=== PATIENT | male | born 1965 | race Two or more races ===

== ENCOUNTER 2024-10-10 11:15 | Inpatient (IN) | payer BC, OTHER ==
[~2024-10-10] VITALS: Ht 180.3 cm; Wt 97.0 kg
[~2024-10-10 11:15] MED LIST: LISI10TA34 PO
--- NOTE | 2024-10-10 12:08 | ED.PDOC ---
History of Present Illness HPI Comments 59-year-old male with PMHx DM, HTN presents with a chief complaint of flu-like symptoms and dizziness x 2 months. Patient states that he is feeling feverish, has throat pain, and a nonproductive cough x 2 months. Patient reports that he doesn't like the doctors and that is why he has not seeked medical attention. Patient walks with a cane. No other symptoms or modifying factors present at this time. Time Seen by MD: 12:02 Reviewed Notes: Nurses Notes, Medications, Allergies Allergies: Coded Allergies: NO KNOWN ALLERGIES (Unverified , 10/10/24) Information Source: Patient Mode of Arrival: Ambulatory Severity: Moderate Timing: Months Duration: Since onset Prehospital treatment: None Past Medical History PAST MEDICAL HISTORY: DM, HTN Surgical History: Denies all surgeries Family History Family History: Reviewed,noncontributory to illness Social History Smoker: Quit Greater Than 1 Year Alcohol: Denies ETOH Use Drugs: Denies Drug Use Lives In: Home Constitutional: reports: fever; denies: chills, diaphoresis, fatigue, malaise, sweats, weakness, others EENTM: reports: throat pain; denies: blurred vision, double vision, ear bleeding, ear discharge, ear drainage, ear pain, ear ringing, eye pain, eye redness, hearing loss, mouth pain, mouth swelling, nasal discharge, nose bleeding, nose congestion, nose pain, photophobia, tearing, throat swelling, voi ce changes, others Respiratory: reports: cough; denies: hemoptysis, orthopnea, SOB at rest, shortness of breath, SOB with excertion, stridor, wheezing, others Cardiovascular: denies: chest pain, dizzy spells, diaphoresis, Dyspnea on exertion, edema, irregular heart beat, left arm pain, lightheadedness, palpitations, PND, syncope, others Gastrointestinal: denies: abdomen distended, abdominal pain, blood streaked bowels, constipated, diarrhea, dysphagia, difficulty swallowing, hematemesis, melena, nausea, poor appetite, poor fluid intake, rectal bleeding, rectal pain, vomiting, others Genitourinary: denies: burning, dysuria, flank pain, frequency, hematuria, incontinence, penile discharge, penile sore, pain, testicle pain, testicle swelling, urgency, others Neurological: reports: dizziness; denies: fainting, headache, left sided numbness, left sided weakness, numbness, paresthesia, pre-existing deficit, right sided numbness, right sided weakness, seizure, speech problems, tingling, tremors, weakness, others Musculoskeletal: denies: back pain, gout, joint pain, joint swelling, muscle pain, muscle stiffness, neck pain, others Integumetry: denies: bruises, change in color, change in hair/nails, dryness, laceration, lesions, lumps, rash, wounds, others Allergic/Immunocompromised: denies: Difficulty Healing, Frequent Infections, Hives, Itching, others Hematologic/Lymphatic: denies: anemia, blood clots, easy bleeding, easy bruising, swollen glands, others Endocrine: denies: excessive hunger, excessive sweating, excessive thirst, excessive urination, flushing, intolerance to cold, intolerance to heat, unexplained weight gain, unexplained weight loss, others Psychiatric: denies: anxiety, bipolar disorder, depression, hopeless, panic disorder, schizophrenia, sleepless, suicidal, others All Other Systems: Reviewed and Negative Physical Exam General Appearance: Moderate Distress HEENT: Normal ENT Inspection, Pharynx Normal, TMs Normal Neck: Full Range of Motion, Non-Tender, Normal, Normal Inspection Respiratory: Chest Non-Tender, Lungs Clear, No Accessory Muscle Use, No Respiratory Distress, Normal Breath Sounds Cardiovascular: No Edema, No JVD, No Murmur, No Gallop, Normal Peripheral Pulses, Regular Rate/Rhythm Breast Exam: Deferred Gastrointestinal: No Organomegaly, Non Tender, No Pulsatile Mass, Normal Bowel Sounds, Soft Genitalia: Deferred Pelvic: Deferred Rectal: Deferred Extremities: No calf tenderness, Normal capillary refill, Normal inspection, Normal range of motion, Non-tender, No pedal edema Musculoskeletal : Apperance: Normal Neurologic: Alert, lens marker II-XII nml as Tested, Motor Weakness, Normal Affect, Normal Mood, No Sensory Deficits Cerebellar Function: Normal Reflexes: Normal Skin: Dry, Normal Color, Warm Lymphatic: No Adenopathy Was a procedure done? Was a procedure done?: No Differential Dx Considerations may include: ACS, FL, acute on chronic diastolic heart failure PE X-Ray, Labs, Meds, VS Vital Signs Date Time Temp Pulse Resp B/P (MAP) Pulse Ox O2 Delivery O2 Flow Rate FiO2 10/10/24 14:48 97.1 10/10/24 14:45 111 10/10/24 14:42 97.1 115 19 124/70 (88) 94 97.1 10/10/24 12:27 100.5 110 16 139/96 (110) 96 100.5 10/10/24 12:27 110 16 96 Room Air 10/10/24 12:17 101.5 113 18 155/85 (108) 97 10/10/24 12:16 18 97 Room Air* 0 21 Lab Test 10/10/24 16:01 10/10/24 14:55 10/10/24 13:06 10/10/24 12:10 Range/Units Troponin I High Sensitivity 8674 *H 8470 *H 9566 *H </=54 ng/L Sodium Level 129 L 136-145 mmol/L Potassium Level 4.8 3.5-5.1 mmol/L Chloride Level 99 98-107 mmol/L Carbon Dioxide Level 22 20-31 mmol/L Anion Gap 8 5-15 Blood Urea Nitrogen 37 H 9-23 mg/dL Creatinine 2.23 H 0.700-1.30 mg/dL Glomerular Filtration Rate Calc 33 >90 mL/min BUN/Creatinine Ratio 16.6 10.0-20.0 Serum Glucose 108 H 74-106 mg/dL Calcium Level 8.9 8.7-10.4 mg/dL White Blood Count 11.4 H 4.4-10.8 10^3/uL Red Blood Count 4.02 L 4.5-5.90 10^6/uL Hemoglobin 11.8 L 13.5-17.5 g/dL Hematocrit 35.5 L 41.0-53.0 % Mean Corpuscular Volume 88.4 80.0-100.0 fL Mean Corpuscular Hemoglobin 29.3 28.0-32.0 pg Mean Corpuscular Hemoglobin Concent 33.1 32.0-36.0 g/dL Red Cell Distribution Width 13.9 11.8-14.3 % Platelet Count 400 140-450 10^3/uL Mean Platelet Volume 8.9 6.9-10.8 fL Neutrophils (%) (Auto) 83.7 H 37.0-80.0 % Lymphocytes (%) (Auto) 6.9 L 10.0-50.0 % Monocytes (%) (Auto) 9.3 0.0-12.0 % Eosinophils (%) (Auto) 0.0 0.0-7.0 % Basophils (%) (Auto) 0.1 0.0-2.0 % Neutrophils # (Auto) 9.5 H 1.6-8.6 10 ^3/uL Lymphocytes # (Auto) 0.8 0.4-5.4 10 ^3/uL Monocytes # (Auto) 1.1 0-1.3 10 ^3/uL Eosinophils # (Auto) 0 0-0.8 10 ^3/uL Basophils # (Auto) 0 0-0.2 10 ^3/uL Nucleated Red Blood Cells 0.0 % D-Dimer, Quantitative 2.81 H 0.0-0.49 mg/L FEU Lactic Acid Level 1.7 0.4-2.0 mmol/L B-Type Natriuretic Peptide 1022.23 0-100 pg/mL Urine Color Yellow Yellow Urine Clarity Turbid H Clear Urine pH 6.0 5.0-9.0 Urine Specific [place] 1.023 1.001-1.035 Urine Protein 3+ H Negative Urine Ketones 1+ H Negative Urine Blood 2+ H Negative /uL Urine Nitrite Negative Negative Urine Bilirubin Negative Negative Urine Urobilinogen Normal Negative mg/dL Urine Leukocyte Esterase Negative Negative /uL Urine RBC 6 0 - 3 /hpf Urine Microscopic WBC 3 0-3 /HPF Urine Squamous Epithelial Cells Few <5 /hpf Urine Bacteria Few H None Seen /hpf Urine Mucus Few None Seen Urine Glucose 1+ H Normal mg/dL Current Medications Medications (Trade) Dose Ordered Sig/Shavon Route Start Time Stop Time Status Last Admin Acetaminophen (Tylenol Tablet) 650 mg ONCE ONCE PO 10/10/24 12:15 10/10/24 12:16 DC 10/10/24 12:22 Enoxaparin Sodium (Lovenox) 90 mg ONCE ONCE SC 10/10/24 15:15 10/10/24 15:16 DC 10/10/24 15:29 CT scan of the chest to rule out PE shows: IMPRESSION: No pulmonary embolism in the visualized pulmonary arteries including the segmental and subsegmental pulmonary arteries. Lymphadenopathy at the celiac axis and mouna hepatis incompletely visualized. Prominent bilateral mediastinal lymph nodes. 1.0 cm left lower lobe pulmonary nodule. Bibasilar atelectasis and ground glass opacity. Cardiomegaly with small pericardial effusion. The chest x-ray shows: IMPRESSION: Bibasilar pneumonia. The patient was started on Lovenox 90 mg subQ The patient was also given acetaminophen 650 mg The urine test is positive for ketones but negative for infection The BNP is 1022.23 The CBC shows an elevated white blood cell count of 11.4 The rest of the CBC is within normal limits The D-dimer is 2.81 The chemistry panel is within normal limits Because the troponin level was 9566 and then went down to around 8600 we are going to get a Cardiology consult The patient was being admitted at this time Images Reviewed?: Images reviewed and evaluated by me Time of 1ST Reevaluation: 12:32 Reevaluation 1ST: Unchanged Patient Education/Counseling: Diagnosis, Treatment, Prognosis Family Education/Counseling: Diagnosis, Treatment, Prognosis Departure 1 Departure Time of Disposition: 17:03 Impression: Primary Impression: Non-STEMI (non-ST elevated myocardial infarction) Additional Impressions: Elevated troponin Elevated d-dimer Acute on chronic diastolic heart failure Disposition: ADMITTED INPATIENT Admit to: [facility] Condition: Fair Critical Care Note Critical Care Time?: Yes (55 min-critical care time only) Stability Stability form required: Yes Unstable for transfer: ICU, CCU, PCU, [facility] (Intensive VS monitoring), ED Physician Assesment (Clinical assesment) Heart Score Heart Score: Heart Score Response (Comments) Value History Moderate Suspicious 1 EKG Normal 0 Age 45-64 1 Risk Factors >3 or Hx ASHD 2 Troponin >3 x's Normal limit 2 Total 6 I personally scribed for MITA EVANS MD ([email or web address]) on 10/10/24 at 12:08. Electronically submitted by Dawson Rodriguez ([email or web address]). I personally scribed for MITA EVANS MD ([email or web address]) on 10/10/24 at 12:10. Electronically submitted by Dawson Rodriguez ([email or web address]). MITA EVANS MD Oct 10, 2024 12:08
[2024-10-10] MEDS: ACETAMINOPHEN 325 MG TAB PO ONE (12:22)
--- NOTE | 2024-10-10 12:55 | DVH ---
XY CHEST TWO VIEWS ROUTINE CLINICAL HISTORY: sob COMPARISON: None TECHNIQUE: Frontal and lateral view of the chest was obtained FINDINGS: Lines and Tubes: None Lungs: Bibasilar airspace opacities. Pleura: No effusion. No pneumothorax. Cardiomediastinal contours: Unremarkable Bones: No acute osseous abnormality. IMPRESSION: Bibasilar pneumonia.
[2024-10-10 13:24] LABS: Urine Bacteria FEW /hpf (None Seen); Urine Blood 2+ /uL (Negative); Urine Clarity Turbid (Clear); Urine Color Yellow (Yellow); Urine Mucus FEW (None Seen); Urine Protein, UAD 3+ (Negative); Urine Specific Gravity 1.023 (1.001-1.035); Urine Squamous Epithelial Cell FEW /hpf (<5); Urine Urobilinogen Normal (Negative); Urine WBC 3 /HPF (0-3)
[2024-10-10 13:31] LABS: Basophils # (auto) 0 10 ^3/uL (0-0.2); Basophils % (auto) 0.1 % (0.0-2.0); Eosinophils # (auto) 0 10 ^3/uL (0-0.8); Hematocrit 35.5 % (41.0-53.0); Hemoglobin 11.8 g/dL (13.5-17.5); Lymphocytes # (auto) 0.8 10 ^3/uL (0.4-5.4); Lymphocytes % (auto) 6.9 % (10.0-50.0); Mean Corpuscular Hemoglobin 29.3 pg (28.0-32.0); Mean Corpuscular Hgb Conc. 33.1 g/dL (32.0-36.0); Mean Corpuscular Volume 88.4 fL (80.0-100.0); Monocytes # (auto) 1.1 10 ^3/uL (0-1.3); Monocytes % (auto) 9.3 % (0.0-12.0); Neutrophils # (auto) 9.5 10 ^3/uL (1.6-8.6); Neutrophils % (auto) 83.7 % (37.0-80.0); Platelet Count (auto) 400 10^3/uL (140-450); Red Blood Cells 4.02 10^6/uL (4.5-5.90); Red Cell Distribution Width 13.9 % (11.8-14.3); White Blood Cell 11.4 10^3/uL (4.4-10.8)
[2024-10-10 15:00] VITALS: PULSE 63; RESP 18; O2SAT 95
[2024-10-10] MEDS: ENOXAPARIN SOD 100 MG/1 ML SYRINGE SC ONE (15:29)
[2024-10-10 15:34] LABS: Chloride 99 mmol/L (98-107); Potassium 4.8 mmol/L (3.5-5.1)
[2024-10-10 15:35] LABS: Anion Gap 8 (5-15); Calcium 8.9 mg/dL (8.7-10.4); Carbon Dioxide 22 mmol/L (20-31)
[2024-10-10] MEDS: IOHEXOL 350 MG/ML 100ML IJ ONE (15:36)
[2024-10-10 15:45] LABS: BUN/Creatinine Ratio 16.6 (10.0-20.0); Blood Urea Nitrogen 37 mg/dL (9-23); Glucose 108 mg/dL (74-106); Sodium 129 mmol/L (136-145)
--- NOTE | 2024-10-10 16:45 | DVH ---
CT CT ANGIO CHEST CONTRAST INDICATION: sob EXAM DATE: 10/10/2024 04:16 PM COMPARISON: None RADIATION DOSE: CTDIvol: 20 mGy, DLP: 635 mGy*cm PROCEDURE: Helical CT angiographic images were obtained of the chest with intravenous contrast. Sagi ttal and coronal reconstructions as well as MIPS are provided. Maximum intensity projections performe d (MIPs) were performed for CTA. ADDITIONAL IMAGES / REFORMATS: None All CT scans at this medical facility are performed using dose modulation techniques as appropriate t o a performed exam including the following: Automated exposure control was utilized; adjustment of th e MA and/or KV according to patient size; and use of iterative reconstruction technique. FINDINGS: Bones: Scattered degenerative changes are noted in the visualized osseous structures. Visualized Abdomen: Lymphadenopathy at the celiac axis and monua hepatis incompletely visualized. Chest Wall: Normal. Soft tissues: Normal. Mediastinum: Normal. Heart: Cardiomegaly with small pericardial effusion. Vessels: No filling defects in the visualized pulmonary arteries including the segmental and subsegme ntal pulmonary arteries. Lymph Nodes: Prominent bilateral mediastinal lymph nodes. Pleura: Small bilateral pleural effusions. Airways: Normal. Lun.0 cm left lower lobe pulmonary nodule. Bibasilar atelectasis and ground glass opacity. Other: None IMPRESSION: No pulmonary embolism in the visualized pulmonary arteries including the segmental and subsegmental p ulmonary arteries. Lymphadenopathy at the celiac axis and mouna hepatis incompletely visualized. Prominent bilateral med iastinal lymph nodes. 1.0 cm left lower lobe pulmonary nodule. Bibasilar atelectasis and ground glass opacity. Cardiomegaly with small pericardial effusion.
[2024-10-10] MEDS ORDERED: MORPHINE SULFATE INJ 2 MG/ml SYRG IV PRN (19:00)
[2024-10-10] MEDS ORDERED: ALBUTEROL SULF 2.5 MG/0.5ML(0.5%) NEB SOLN NEB PRN (19:00)
[2024-10-10] MEDS ORDERED: ONDANSETRON HCL 4 MG/2 ML VIAL IV PRN (19:00)
[2024-10-10] MEDS ORDERED: NITROGLYCERIN 0.4 MG SL TAB SL PRN (19:00)
[2024-10-10 19:30] VITALS: PULSE 90; RESP 13; O2SAT 100; O2SAT 95
[2024-10-10] MEDS: cefTRIAXone 1GM/50ML D5W 50 ML IV SCH (19:47)
[2024-10-10] MEDS: FUROSEMIDE 20 MG/2 ML VIAL IV ONE (19:47)
[2024-10-10 20:24] VITALS: BP 151/89; PULSE 84; RESP 12; TEMP 97.1; O2SAT 95
[2024-10-10] MEDS: AZITHROMYCIN 500MG/ 250ML 250 ML IV ONE (20:53)
--- NOTE | 2024-10-10 21:03 | DVHHP2 ---
History of Present Illness Reason for Visit: Shortness of breath History of Present Illness 59-year-old male presents for evaluation of like symptoms. Patient reports a two month history of shortness of breath with dizziness and a nonproductive cough. He also reports feeling chills intermittently. Denies chest pain or palpitations. No other acute complaints reported. Past Medical History Hypertension and diabetes mellitus Past Surgical History Denies Family History Noncontributory Smoke: No ALCOHOL: none Drugs: None Lives: with Family Review of Systems Review of Systems Review of systems are currently negative otherwise addressed in HPI. Allergies: Coded Allergies: NO KNOWN ALLERGIES (Unverified , 10/10/24) Medications Current Medications Medications Dose Ordered Sig/Shavon Route Start Time Stop Time Status Last Admin Dose Admin Furosemide 20 mg BIDD IV 10/11/24 06:00 Amlodipine Besylate 5 mg DAILY PO 10/11/24 10:00 Hydralazine HCl 10 mg Q6HP PRN IV 10/10/24 19:00 Aspirin 162 mg DAILY PO 10/11/24 10:00 Atorvastatin Calcium 10 mg HS PO 10/10/24 22:00 Carvedilol 3.125 mg Q12HR PO 10/10/24 22:00 Ondansetron HCl 4 mg Q4HP PRN IV 10/10/24 19:00 Acetaminophen 650 mg Q6HP PRN PO 10/10/24 19:00 Nitroglycerin 0.4 mg Q5MINP PRN SL 10/10/24 19:00 Morphine Sulfate 2 mg Q30M PRN IV 10/10/24 19:00 Ceftriaxone Sodium 50 ml @ 100 mls/hr DAILY@09 IV 10/10/24 19:04 10/10/24 19:47 100 MLS/HR Azithromycin 250 ml @ 125 mls/hr DAILY IV 10/11/24 10:00 Albuterol 2.5 mg Q6HPRN PRN NEB 10/10/24 19:00 Exam Vital Signs Vital Signs Date Time Temp Pulse Resp B/P (MAP) Pulse Ox O2 Delivery O2 Flow Rate FiO2 10/10/24 20:24 97.1 84 12 151/89 95 97.1 10/10/24 19:30 Room Air* 0 21 Exam Gen: 59-year-old male in mild distress Skin: Warm, dry, normal color and texture, no rash. HEENT: Normocephalic atraumatic, mucous membranes moist and pink. Neck: Cervical and supraclavicular nodes normal without enlargement, trachea is midline, thyroid gland is normal without masses. Pulmonary: Clear to auscultation and percussion bilaterally. Cardiac: Regular rate and rhythm. No murmur Abdomen: Soft, nontender, nondistended, bowel sounds present all 4 quadrants, no guarding, no rigidity, no organomegaly. Extremities: No cyanosis, clubbing, no edema Neuro: Cranial nerves II through XII grossly intact, normal affect and speech, no focal motor deficits. Labs/Xrays ORDERING PHYSICIAN: MITA EVANS MD PROCEDURE(s): CXR2 - CHEST TWO VIEWS ROUTINE REASON: sob ORDER NUMBER(s): [id number], ACCESSION NUMBER(s): [id number] XY CHEST TWO VIEWS ROUTINE CLINICAL HISTORY: sob COMPARISON: None TECHNIQUE: Frontal and lateral view of the chest was obtained FINDINGS: Lines and Tubes: None Lungs: Bibasilar airspace opacities. Pleura: No effusion. No pneumothorax. Cardiomediastinal contours: Unremarkable Bones: No acute osseous abnormality. IMPRESSION: Bibasilar pneumonia. RING PHYSICIAN: MITA EVANS MD PROCEDURE(s): CTACH - CT ANGIO CHEST CONTRAST REASON: sob ORDER NUMBER(s): [id number], ACCESSION NUMBER(s): [id number] CT CT ANGIO CHEST CONTRAST INDICATION: sob EXAM DATE: 10/10/2024 04:16 PM COMPARISON: None RADIATION DOSE: CTDIvol: 20 mGy, DLP: 635 mGy*cm PROCEDURE: Helical CT angiographic images were obtained of the chest with intravenous contrast. Sagittal and coronal reconstructions as well as MIPS are provided. Maximum intensity projections performed (MIPs) were performed for CTA. ADDITIONAL IMAGES / REFORMATS: None All CT scans at this medical facility are performed using dose modulation techniques as appropriate to a performed exam including the following: Automated exposure control was utilized; adjustment of the MA and/or KV according to patient size; and use of iterative reconstruction technique. FINDINGS: Bones: Scattered degenerative changes are noted in the visualized osseous structures. Visualized Abdomen: Lymphadenopathy at the celiac axis and mouna hepatis incompletely visualized. Chest Wall: Normal. Soft tissues: Normal. Mediastinum: Normal. Heart: Cardiomegaly with small pericardial effusion. Vessels: No filling defects in the visualized pulmonary arteries including the segmental and subsegmental pulmonary arteries. Lymph Nodes: Prominent bilateral mediastinal lymph nodes. Pleura: Small bilateral pleural effusions. Airways: Normal. Lun.0 cm left lower lobe pulmonary nodule. Bibasilar atelectasis and ground glass opacity. Other: None IMPRESSION: No pulmonary embolism in the visualized pulmonary arteries including the segmental and subsegmental pulmonary arteries. Lymphadenopathy at the celiac axis and mouna hepatis incompletely visualized. Prominent bilateral mediastinal lymph nodes. 1.0 cm left lower lobe pulmonary nodule. Bibasilar atelectasis and ground glass opacity. Cardiomegaly with small pericardial effusion. Labs Test 10/10/24 19:09 10/10/24 14:55 10/10/24 13:06 10/10/24 12:10 Range/Units Troponin I High Sensitivity 87005 *H </=54 ng/L Sodium Level 129 L 136-145 mmol/L Potassium Level 4.8 3.5-5.1 mmol/L Chloride Level 99 98-107 mmol/L Carbon Dioxide Level 22 20-31 mmol/L Anion Gap 8 5-15 Blood Urea Nitrogen 37 H 9-23 mg/dL Creatinine 2.23 H 0.700-1.30 mg/dL Glomerular Filtration Rate Calc 33 >90 mL/min BUN/Creatinine Ratio 16.6 10.0-20.0 Serum Glucose 108 H 74-106 mg/dL Calcium Level 8.9 8.7-10.4 mg/dL White Blood Count 11.4 H 4.4-10.8 10^3/uL Red Blood Count 4.02 L 4.5-5.90 10^6/uL Hemoglobin 11.8 L 13.5-17.5 g/dL Hematocrit 35.5 L 41.0-53.0 % Mean Corpuscular Volume 88.4 80.0-100.0 fL Mean Corpuscular Hemoglobin 29.3 28.0-32.0 pg Mean Corpuscular Hemoglobin Concent 33.1 32.0-36.0 g/dL Red Cell Distribution Width 13.9 11.8-14.3 % Platelet Count 400 140-450 10^3/uL Mean Platelet Volume 8.9 6.9-10.8 fL Neutrophils (%) (Auto) 83.7 H 37.0-80.0 % Lymphocytes (%) (Auto) 6.9 L 10.0-50.0 % Monocytes (%) (Auto) 9.3 0.0-12.0 % Eosinophils (%) (Auto) 0.0 0.0-7.0 % Basophils (%) (Auto) 0.1 0.0-2.0 % Neutrophils # (Auto) 9.5 H 1.6-8.6 10 ^3/uL Lymphocytes # (Auto) 0.8 0.4-5.4 10 ^3/uL Monocytes # (Auto) 1.1 0-1.3 10 ^3/uL Eosinophils # (Auto) 0 0-0.8 10 ^3/uL Basophils # (Auto) 0 0-0.2 10 ^3/uL Nucleated Red Blood Cells 0.0 % D-Dimer, Quantitative 2.81 H 0.0-0.49 mg/L FEU Lactic Acid Level 1.7 0.4-2.0 mmol/L B-Type Natriuretic Peptide 1022.23 0-100 pg/mL Urine Color Yellow Yellow Urine Clarity Turbid H Clear Urine pH 6.0 5.0-9.0 Urine Specific [place] 1.023 1.001-1.035 Urine Protein 3+ H Negative Urine Ketones 1+ H Negative Urine Blood 2+ H Negative /uL Urine Nitrite Negative Negative Urine Bilirubin Negative Negative Urine Urobilinogen Normal Negative mg/dL Urine Leukocyte Esterase Negative Negative /uL Urine RBC 6 0 - 3 /hpf Urine Microscopic WBC 3 0-3 /HPF Urine Squamous Epithelial Cells Few <5 /hpf Urine Bacteria Few H None Seen /hpf Urine Mucus Few None Seen Urine Glucose 1+ H Normal mg/dL Assessment/Plan Assessment/Plan Assessment NSTEMI Possible acute diastolic heart failure Questionable pneumonia Diabetes mellitus Hypertension Acute kidney injury Plan Admit the patient to telemetry to [facility] Cardiology consultation NPO Heparin drip Continue treatment per orders. Total critical care time excluding procedures performed this 50 minutes. Plan discussed with: Patient My Orders Orders - SILKE MARTIN AGACNP Procedure Category Date Status Time Furosemide Injection PHA 10/11/24 In Process (Lasix Injection) 06:00 Amlodipine Tablet PHA 10/11/24 In Process (Norvasc Tablet) 10:00 Hydralazine Injection PHA 10/10/24 In Process (Apresoline Inject 19:00 * Cardiology Consult CONS 10/10/24 Transmitted 18:46 Aspirin Tablet PHA 10/11/24 In Process 10:00 Atorvastatin (Lipitor) PHA 10/10/24 In Process 22:00 Carvedilol Tablet PHA 10/10/24 In Process (Coreg Tablet) 22:00 Basic Metabolic Panel LAB 10/11/24 Verified 04:00 Admit ADMIT 10/10/24 Transmitted 18:46 Ondansetron Hcl PHA 10/10/24 In Process (Zofran) 19:00 Echo 2d Mode Cardiac US 10/10/24 Logged DOP 18:46 Condition: Fair [facility] 10/10/24 In Process 18:46 Acetaminophen Tablet PHA 10/10/24 In Process (Tylenol Tablet) 19:00 Bedrest With Bathroom [facility] 10/10/24 In Process Privileg 18:46 Nitroglycerin PHA 10/10/24 In Process Sublingual (Ntrostat 19:00 Morphine Sulfate PHA 10/10/24 In Process Injection 19:00 Stat Ekg For Chest [facility] 10/10/24 In Process Pain 18:46 Notify Md Of Changes [facility] 10/10/24 In Process From Base 18:46 Mammography Tech For [facility] 10/10/24 In Process 24 Hours 18:46 Emergency Dysrhythmia [facility] 10/10/24 In Process Protocol 18:46 Rhythm Strips Once [facility] 10/10/24 In Process Every Shift 18:46 Oxygen By Nasal RT 10/10/24 Transmitted Cannula 18:46 Azithromycin 500mg/ PHA 10/11/24 In Process 250ml (Zithromax 50 10:00 Azithromycin 500mg/ PHA 10/10/24 In Process 250ml (Zithromax 50 19:00 Albuterol Medneb PHA 10/10/24 In Process (Ventolin Medneb) 19:00 Ceftriaxone 1gm/50ml PHA 10/10/24 In Process D5w (Rocephin) 19:04 Platelet Monitoring [facility] 10/10/24 Transmitted 20:56 Heparin Per [facility] 10/10/24 Transmitted Standardized Proce 20:56 Discontinue All Im [facility] 10/10/24 Transmitted Injections 20:56 Heparin Drip/D5w PHA 10/10/24 Transmitted 100units/Ml 21:00 Npo (Nothing By DIET 10/11/24 Transmitted Mouth) Diet Breakfast Date of Service: Oct 10, 2024 Billing Provider: SILKE MARTIN Common Visit Codes: 24021-SEZSAPVT CARE 30-74 MIN SILKE MARTIN Oct 10, 2024 21:03
[2024-10-10] MEDS: hydrALAZINE HCL 20 MG/ML VL IV PRN (21:19)
[2024-10-10 22:00] LABS: INR 1.2 (0.9-1.15); Partial Thromboplastin Time 37.6 SEC (24.5-34.5); Prothrombin Time 12.5 sec (9.3-11.8)
[2024-10-10] MEDS: CARVEDILOL 3.125 MG TAB PO SCH (22:11)
[2024-10-10] MEDS: ATORVASTATIN 20 MG TAB PO SCH (22:12)
[2024-10-11] MEDS: HEPARIN DRIP/D5W 100UNITS/ML 250 ML IV SCH ×4 (01:02→22:15)
[2024-10-11] MEDS: FUROSEMIDE 20 MG/2 ML VIAL IV SCH (06:09)
[2024-10-11 07:01] VITALS: O2SAT 95
[2024-10-11 07:08] LABS: Hematocrit 29.9 % (41.0-53.0); Hemoglobin 10.1 g/dL (13.5-17.5); Mean Corpuscular Hemoglobin 29.9 pg (28.0-32.0); Mean Corpuscular Hgb Conc. 33.9 g/dL (32.0-36.0); Mean Corpuscular Volume 88.2 fL (80.0-100.0); Platelet Count (auto) 330 10^3/uL (140-450); Red Blood Cells 3.39 10^6/uL (4.5-5.90); Red Cell Distribution Width 13.7 % (11.8-14.3); White Blood Cell 7.2 10^3/uL (4.4-10.8)
[2024-10-11 07:17] LABS: Basophils % (manual) 0 (0.0-2.0); Blast Cells 0; Chloride 99 mmol/L (98-107); Eosinophils % (manual) 0 (0-7); Metamyelocytes % 0; Myelocytes % 0; Promyelocytes % 0; Reactive Lymphocytes 0
[2024-10-11 07:19] LABS: Anion Gap 8 (5-15); Carbon Dioxide 25 mmol/L (20-31)
[2024-10-11 07:22] LABS: INR 1.18 (0.9-1.15); Partial Thromboplastin Time 41.1 SEC (24.5-34.5); Prothrombin Time 12.3 sec (9.3-11.8)
[2024-10-11 07:24] LABS: BUN/Creatinine Ratio 18.4 (10.0-20.0); Blood Urea Nitrogen 44 mg/dL (9-23); Calcium 8.4 mg/dL (8.7-10.4); Glucose 100 mg/dL (74-106); Sodium 132 mmol/L (136-145)
[2024-10-11 08:00] VITALS: PULSE 93; RESP 18; O2SAT 100
[2024-10-11 08:36] LABS: Band Neutrophils % (manual) 6; Lymphocytes % (manual) 7 (10.0-50.0); Monocytes % (manual) 11 (0-12); Platelet Estimate Adequate
--- NOTE | 2024-10-11 09:33 | DVHSR ---
APPROVED REPORT EXAM: Two-dimensional and M-mode echocardiogram with Doppler and color Doppler. Blood Pressure: 133/76 mmHg INDICATION EF RISK FACTORS Height: 5'11", Weight: 192 DIMENSIONS LVDd4.7 (3.8-5.7cm)LA (2D)4.6 (1.9-4.0cm)Aortic Root3.7 (2.0-3.7cm) LVDs3.8 (2.5-4.0cm)LA (MM) (1.9-4.0cm)Aortic Cusp Exc2.0 (1.5-2.0cm) EF (%) 50.0 (55-70%)Rt. Atrium4.3 (1.9-4.0cm)Asc. Aorta3.8 cm IVSd1.1 (0.7-1.1cm)RV (D)3.9 (1.8-2.4cm) PWd1.0 (0.7-1.1cm) Mitral Valve MitralMitral Stenosis E wave1.08m/sMV Mean GR.mmHg A wave0.77m/sMV Peak GR.mmHg E/A ratio1.42D MVAcm2 DECEL [id number] 1/2 Timems Aortic Valve Aortic ValveAortic Stenosis V10.92m/[place] Mean GR.4mmHg V21.23m/[place] Peak GR.6mmHg LVOT Diameter2.4 (1.8-2.4cm)Doppler AVA3.38cm2 Pulmonic Valve V20.76m/s LEFT VENTRICLE The left ventricle is of normal size. Wall thickness is normal. Ejection fraction is low normal and is estimated at 50-55%. There is severe hypokinesis of the inferoposterior wall. There is grade 2 diastolic dysfunction with evidence of elevated left-sided filling pressure. RIGHT VENTRICLE The right ventricle is of normal size. Systolic function is normal. ATRIA The left atrium is mildly dilated in size. Right atrium is of normal size. Intra-atrial septum appe ars to be normal. MITRAL VALVE Normal structure and function. No significant regurgitation. PULMONIC VALVE Likely normal. TRICUSPID VALVE Normal structure and function. No significant regurgitation. PA systolic pressure isn't adequately estimated. AORTIC VALVE Normal in structure and function. GREAT VESSELS The aortic root and proximal ascending aorta are of normal size. PERICARDIAL EFFUSION There is small pericardial effusion that is circumferential. IVC is of normal size and collapses nor ana with inspiration. Conclusion Normal left ventricular size and low-normal systolic function. Ejection fraction is estimated at 50-55%. Severe hypokinesis of the inferoposterior wall. Grade II diastolic dysfunction with evidence of elevated left-sided filling pressure. Normal right ventricular size and systolic function. Mildly dilated left atrial chamber size. No significant valvular disease. PA systolic pressure isn't adequately estimated. Small circumferential pericardial effusion.
--- NOTE | 2024-10-11 10:15 | DVHINCON2 ---
Date Seen: Oct 11, 2024 Referring Physician KB Narayan Reason for Consultation NSTEMI History of Present Illness This is a 59-year-old male patient who presents to the emergency room with chief complaint of cough, fever, and fatigue for approximately one month. He decided to come to the emergency room for further evaluation. Initial twelve lead electrocardiogram reveals normal sinus rhythm with nonspecific ST segment changes to lateral leads. Initial troponin level of 9566ng/L with peak level at 85365ho/L. The patient denies any cardiac symptoms such as chest pain, shortness of breath, palpitations, dizziness, etc. Significant past medical history includes hypertension, type 2 diabetes mellitus, psoriasis, and previous tobacco use. The patient denies any previous cardiac workup. Past Medical History Past medical history reviewed. No other significant than mentioned above. Past Surgical History Denies Family History Family history reviewed. Social History Patient has a 30 pack-year history, quit smoking approximately 11 years ago Patient denies any illicit drug use Patient denies any alcohol use Allergies: Coded Allergies: NO KNOWN ALLERGIES (Unverified , 10/10/24) Home Meds Reported Medications Lisinopril (Lisinopril) 10 Mg Tab, 1 TAB PO DAILY for 60 Days, #60 10/11/24 Home Meds Home medications reviewed. Current Medications Current Medications Medications (Trade) Dose Ordered Sig/Shavon Route PRN Reason Start Time Stop Time Status Last Admin Furosemide (Lasix Injection) 20 mg BIDD IV 10/11/24 06:00 10/11/24 06:09 Amlodipine Besylate (Norvasc Tablet) 5 mg DAILY PO 10/11/24 10:00 Hydralazine HCl (Apresoline Injection) 10 mg Q6HP PRN IV SBP>150 10/10/24 19:00 10/10/24 21:19 Aspirin 162 mg DAILY PO 10/11/24 10:00 Atorvastatin Calcium (Lipitor) 10 mg HS PO 10/10/24 22:00 10/10/24 22:12 Carvedilol (Coreg Tablet) 3.125 mg Q12HR PO 10/10/24 22:00 10/10/24 22:11 Ondansetron HCl (Zofran) 4 mg Q4HP PRN IV NAUSEA / VOMITING 10/10/24 19:00 Acetaminophen (Tylenol Tablet) 650 mg Q6HP PRN PO PAIN SCALE 1-3 OR TEMP>100.4 10/10/24 19:00 Nitroglycerin (Ntrostat Sublingual) 0.4 mg Q5MINP PRN SL FOR CHEST PAIN 10/10/24 19:00 Morphine Sulfate 2 mg Q30M PRN IV FOR CHEST PAIN 10/10/24 19:00 Ceftriaxone Sodium 50 ml @ 100 mls/hr DAILY@09 IV 10/10/24 19:04 10/10/24 19:47 Azithromycin 250 ml @ 125 mls/hr DAILY IV 10/11/24 10:00 Albuterol (Ventolin Medneb) 2.5 mg Q6HPRN PRN NEB SHORTNESS OF BREATH 10/10/24 19:00 Heparin Sodium/ Dextrose 250 ml @ 10 mls/hr Q24H IV 10/11/24 01:00 10/11/24 08:11 DC 10/11/24 01:02 Heparin Sodium/ Dextrose 250 ml @ 12 mls/hr [id number] IV 10/11/24 08:15 10/11/24 08:15 Review of Systems Constitutional: Generalized weakness, fever Ears, Nose, & Throat: No symptom reported Eyes: No symptom reported Neurological: No symptoms reported Pulmonary/Respiratory: Cough Cardiovascular: No symptom reported Gastrointestinal: No symptom reported Genitourinary: No symptom reported Musculoskeletal: No symptom reported Skin: No symptom reported Psychiatric: No symptom reported Endocrine: No symptom reported Hematologic/Lymphatic: No symptom reported Vital Signs Vital Signs Date Time Temp Pulse Resp B/P (MAP) Pulse Ox O2 Delivery O2 Flow Rate FiO2 10/11/24 08:00 90 10/11/24 08:00 18 100 Nasal Cannula* 2 28 10/11/24 08:00 99.7 143/81 (101) 99.7 Physical Exam General Appearance: Cooperative. Well-developed. Well-nourished. No acute distress. Pulmonary/Respiratory: Diminished bilateral lung bases Cardiovascular/Chest: Regular rate and rhythm. Peripheral Pulses: 2+ Radial (R). 2+ Radial (L). 2+ Pedal (R). 2+ Pedal (L) Abdominal Exam: Normal bowel sounds. Ankle Exam: Negative ankle edema Lower extremities: Negative lower extremity edema Neuro/Mental Status: A/OX4, coherent. Thoughts/Psych: Normal thought pattern. Appropriate mood and affect. Good judgment and insight. Appearance: No acute distress. Skin Exam: Areas of dry/flaky skin to bilateral elbows. Skin intact. Warm and dry Labs/Diagnostic Data Labs Test 10/11/24 06:54 10/11/24 06:40 10/10/24 19:09 10/10/24 13:06 Range/Units White Blood Count 7.2 # 4.4-10.8 10^3/uL Red Blood Count 3.39 L 4.5-5.90 10^6/uL Hemoglobin 10.1 L 13.5-17.5 g/dL Hematocrit 29.9 #L 41.0-53.0 % Mean Corpuscular Volume 88.2 80.0-100.0 fL Mean Corpuscular Hemoglobin 29.9 28.0-32.0 pg Mean Corpuscular Hemoglobin Concent 33.9 32.0-36.0 g/dL Red Cell Distribution Width 13.7 11.8-14.3 % Platelet Count 330 140-450 10^3/uL Mean Platelet Volume 8.3 6.9-10.8 fL Neutrophils (%) (Auto) 37.0-80.0 % Lymphocytes (%) (Auto) 10.0-50.0 % Monocytes (%) (Auto) 0.0-12.0 % Basophils (%) (Auto) 0.0-2.0 % Neutrophils # (Auto) 1.6-8.6 10 ^3/uL Lymphocytes # (Auto) 0.4-5.4 10 ^3/uL Monocytes # (Auto) 0-1.3 10 ^3/uL Differential Total Cells Counted 100.0 100 Neutrophils % (Manual) 76 37.0-80.0 Band Neutrophils % (Manual) 6 Lymphocytes % (Manual) 7 L 10.0-50.0 Monocytes % (Manual) 11 0-12 Eosinophils % (Manual) 0 0-7 Basophils % (Manual) 0 0.0-2.0 Metamyelocytes % (manual) 0 Myelocytes % (Manual) 0 Promyelocytes % (Manual) 0 Blast Cells % (Manual) 0 Reactive Lymphocytes 0 Platelet Estimate Adequate Prothrombin Time 12.3 H 9.3-11.8 sec Prothrombin Time INR 1.18 H 0.9-1.15 Activated Partial Thromboplast Time 41.1 H 24.5-34.5 SEC Sodium Level 132 L 136-145 mmol/L Potassium Level 5.0 3.5-5.1 mmol/L Chloride Level 99 98-107 mmol/L Carbon Dioxide Level 25 20-31 mmol/L Anion Gap 8 5-15 Blood Urea Nitrogen 44 H 9-23 mg/dL Creatinine 2.39 H 0.700-1.30 mg/dL Glomerular Filtration Rate Calc 30 >90 mL/min BUN/Creatinine Ratio 18.4 10.0-20.0 Serum Glucose 100 74-106 mg/dL Calcium Level 8.4 L 8.7-10.4 mg/dL Magnesium Level 2.0 1.6-2.6 mg/dL Triglycerides Level 118 < 150 mg/dL Cholesterol Level 151 < 200 mg/dL LDL Cholesterol 108 H < 100 mg/dL HDL Cholesterol 27 L 40-59 mg/dL Troponin I High Sensitivity 60136 *H </=54 ng/L Eosinophils (%) (Auto) 0.0 0.0-7.0 % Eosinophils # (Auto) 0 0-0.8 10 ^3/uL Basophils # (Auto) 0 0-0.2 10 ^3/uL Nucleated Red Blood Cells 0.0 % D-Dimer, Quantitative 2.81 H 0.0-0.49 mg/L FEU Lactic Acid Level 1.7 0.4-2.0 mmol/L B-Type Natriuretic Peptide 1022.23 0-100 pg/mL Test 10/10/24 12:10 Range/Units Urine Color Yellow Yellow Urine Clarity Turbid H Clear Urine pH 6.0 5.0-9.0 Urine Specific [place] 1.023 1.001-1.035 Urine Protein 3+ H Negative Urine Ketones 1+ H Negative Urine Blood 2+ H Negative /uL Urine Nitrite Negative Negative Urine Bilirubin Negative Negative Urine Urobilinogen Normal Negative mg/dL Urine Leukocyte Esterase Negative Negative /uL Urine RBC 6 0 - 3 /hpf Urine Microscopic WBC 3 0-3 /HPF Urine Squamous Epithelial Cells Few <5 /hpf Urine Bacteria Few H None Seen /hpf Urine Mucus Few None Seen Urine Glucose 1+ H Normal mg/dL Assessment NSTEMI, rule out type I Chronic HFpEF, NYHA class II Hypertension Hyperlipidemia Pneumonia Type 2 diabetes mellitus Obesity Plan/Recommendation We will continue following plan/recommendations (Dr. Murrieta): * Transthoracic echocardiogram reveals EF 50-55% with severe hypokinesis of the inferoposterior wall. Grade 2 diastolic dysfunction * Chest pain protocol * DANI score: 3 points * HEART score: 6 points * Continue heparin drip per protocol * Gentle IV fluid hydration * Lipid-lowering agent * Antibiotics per primary care team * Consider Nephrology consult Patient seen and examined at bedside with . The patient denies any chest pain or cardiac symptoms at time of assessment. Given the patient's significant elevated troponin level, we will recommend for the patient to undergo a coronary angiogram with left heart catheterization. Procedure was discussed with the patient in full detail including risks and benefits. Risks include but are not limited to bleeding, contrast induced nephropathy, stroke, and even . The patient understands and is agreeable to undergo the procedure. At this time, the patient has an elevated creatinine level at 2.39. We will plan to gently hydrate the patient in hopes of improved creatinine level prior to coronary angiogram. We will tentatively schedule the patient for a coronary angiogram on 10/15/24. Thank you for allowing us to care for this patient. Please call with any questions or concerns. Plan discussed with: Patient NYHA Physical activity limitations: Class2(Slight)fatigue,sob (palpitatns, angina w activityv) Date of Service: Oct 11, 2024 Billing Provider: LUCILA MURRIETA MD Cardiology Common Codes: [id number] INP/OBS CARE (High) Cardiology Consultation Codes: [id number] CONSULT <45MIN TESFAYE ORTIZ Oct 11, 2024 10:15
[2024-10-11] MEDS: ASPirin 81 mg TAB PO SCH (10:17)
[2024-10-11] MEDS: AZITHROMYCIN 500MG/ 250ML 250 ML IV SCH (10:19)
[2024-10-11] MEDS: amLODIPine BESYLATE 5 MG TAB PO SCH (10:19)
[2024-10-11] MEDS: SODIUM CHLORIDE 0.9% 1,000 ML IV SCH (12:00)
--- NOTE | 2024-10-11 12:48 | ECG ---
[facility] Test Date: 2024-10-10 Test Time: 20:16:21 Pat Name: HEAVEN CHILEL Department: er Room: [address] [place] [address] Gender: M Assistant Service Manager: sulaiman : 1965 Requested By: MITA EVANS Order Number: [id number] Reading MD: Brad Sutton Measurements Intervals [place] Rate: 97 P: 57 OK: 198 QRS: 7 QRSD: 98 T: 88 QT: 374 QTc: 475 Interpretive Statements Sinus rhythm Borderline prolonged OK interval Probable left atrial enlargement Nonspecific T abnormalities, lateral leads ST elevation, consider anterior injury Borderline prolonged QT interval Baseline wander in lead(s) V2 Electronically Signed On 10-12-2024 13:15:29 PST by Brad Sutton Please click the below link to view image of tracing.
[2024-10-11 14:25] LABS: INR 1.14 (0.9-1.15); Partial Thromboplastin Time 41.9 SEC (24.5-34.5); Prothrombin Time 11.9 sec (9.3-11.8)
[2024-10-11] MEDS: SODIUM BICARB 50mEq/50ml Vial 50 ML in SOD CHL 0.45% 1,000 ML IV ONE (14:45)
[2024-10-11] MEDS: guaiFENesin-DM 100/10mg/5ml SYR PO PRN (15:23)
[2024-10-11] MEDS: ASPirin 81 mg TAB PO ONE (15:23)
[2024-10-11] MEDS: ACETYLCYSTEINE ORAL for CIN 20%(200MG/ML) 4ML PO SCH (15:32)
--- NOTE | 2024-10-11 15:53 | DVHPN2 ---
Subjective Patient denies any chest pain, continues to report having cough and some shortness of breath. Reviewed: Care Plan, H&P, Labs, Medications Changes from previous H/P or p: No Changes General: Per HPI Objective Vitals Vital Signs Date Time Temp Pulse Resp B/P (MAP) Pulse Ox O2 Delivery O2 Flow Rate FiO2 10/11/24 14:00 86 17 106/63 (77) 98 10/11/24 08:00 Nasal Cannula* 2 28 10/11/24 08:00 99.7 99.7 Intake/Output Intake and Output 10/11/24 07:00 Intake Total 360 ml Balance 360 ml Intake IV Total 360 ml General Appearance: Alert, Oriented X3, Cooperative, No acute distress HEENT: Atraumatic, PERRLA Lungs: Clear to auscultation, Normal air movement Cardiovascular: Normal S1, Normal S2 Abdomen: Normal bowel sounds, Soft, No tenderness Genitourinary: No Apparent Abnormalities Musculoskeletal: Normal sensory function, Normal motor function Neuro: Normal speech Psych/Mental Status: Mental status NL Medications Current Medications Medications Dose Ordered Sig/Shavon Route Start Time Stop Time Status Last Admin Dose Admin Hydralazine HCl 10 mg Q6HP PRN IV 10/10/24 19:00 10/10/24 21:19 10 MG Carvedilol 3.125 mg Q12HR PO 10/10/24 22:00 10/11/24 10:18 3.125 MG Ondansetron HCl 4 mg Q4HP PRN IV 10/10/24 19:00 Acetaminophen 650 mg Q6HP PRN PO 10/10/24 19:00 Nitroglycerin 0.4 mg Q5MINP PRN SL 10/10/24 19:00 Morphine Sulfate 2 mg Q30M PRN IV 10/10/24 19:00 Ceftriaxone Sodium 50 ml @ 100 mls/hr DAILY@09 IV 10/10/24 19:04 10/11/24 10:24 100 MLS/HR Albuterol 2.5 mg Q6HPRN PRN NEB 10/10/24 19:00 Sodium Chloride 1,000 ml @ 75 mls/hr [id number] IV 10/11/24 12:00 10/11/24 12:00 75 MLS/HR Aspirin 81 mg DAILY PO 10/12/24 10:00 Atorvastatin Calcium 20 mg HS PO 10/11/24 22:00 Aspirin 81 mg DAILY PO 10/12/24 10:00 Cancel Atorvastatin Calcium 40 mg HS PO 10/11/24 22:00 Azithromycin 250 ml @ 125 mls/hr DAILY IV 10/12/24 10:00 Acetylcysteine 600 mg BID PO 10/11/24 14:30 2 14:29 10/11/24 15:32 600 MG Heparin Sodium/ Dextrose 250 ml @ 14 mls/hr [id number] IV 10/11/24 14:45 10/11/24 14:59 14 MLS/HR Guaifenesin/ Dextromethorphan 10 ml Q4HP PRN PO 10/11/24 14:45 10/11/24 15:23 10 ML Laboratory Results Laboratory Tests 10/11/24 06:54 Chemistry Test 10/11/24 06:54 Calcium Level 8.4 mg/dL (8.7-10.4) L Magnesium Level 2.0 mg/dL (1.6-2.6) Coagulation Test 10/10/24 19:09 10/11/24 06:54 10/11/24 14:02 Prothrombin Time 12.5 sec (9.3-11.8) H 12.3 sec (9.3-11.8) H 11.9 sec (9.3-11.8) H Prothrombin Time INR 1.20 (0.9-1.15) H 1.18 (0.9-1.15) H 1.14 (0.9-1.15) Activated Partial Thromboplast Time 37.6 SEC (24.5-34.5) H 41.1 SEC (24.5-34.5) H 41.9 SEC (24.5-34.5) H Lipid panel Test 10/11/24 06:54 Cholesterol Level 151 mg/dL (< 200) HDL Cholesterol 27 mg/dL (40-59) L Triglycerides Level 118 mg/dL (< 150) HgA1c, TSH Test 10/11/24 06:40 10/11/24 06:54 Hemoglobin A1c 6.6 % A1C (<5.7) H Thyroid Stimulating Hormone (TSH) 1.07 uIU/mL (0.55-4.78) Urinalysis Test 10/10/24 12:10 Urine Color Yellow (Yellow) Urine Clarity Turbid (Clear) H Urine pH 6.0 (5.0-9.0) Urine Specific [place] 1.023 (1.001-1.035) Urine Protein 3+ (Negative) H Urine Ketones 1+ (Negative) H Urine Blood 2+ /uL (Negative) H Urine Nitrite Negative (Negative) Urine Bilirubin Negative (Negative) Urine Urobilinogen Normal mg/dL (Negative) Urine Leukocyte Esterase Negative /uL (Negative) Urine RBC 6 /hpf (0 - 3) Urine Microscopic WBC 3 /HPF (0-3) Urine Squamous Epithelial Cells Few /hpf (<5) Urine Bacteria Few /hpf (None Seen) H Urine Mucus Few (None Seen) Urine Glucose 1+ mg/dL (Normal) H Microbiology Microbiology Date/Time Source Procedure Growth Status 10/10/24 13:06 Blood Blood Culture - Preliminary NO GROWTH AFTER 24 HOURS OF INCUBATION. Resulted Labs and/or images reviewed: Labs reviewed by me, Image(s) reviewed by me Assessment/Plan Assessment/Plan Impression: -sepsis -community-acquired pneumonia, probable Gram-positive/Gram-negative etiology -NSTEMI, probable type 1 -diabetes mellitus -primary hypertension -dyslipidemia -probable CKD stage IIIB/four Plan: -cardiology consultation: Clarified that the plan is for left heart catheterization on 10/15/2024 -sodium bicarbonate drip x1 bag -Mucomyst p.o. times 48 hours -regular insulin sliding scale -antibiotic therapy: Rocephin, azithromycin -continue heparin drip -continue aspirin and statin -repeat labs, chest x-ray in a.m. Critical care time spent with patient discussing and formulating plan of care: 40 minutes. This does not include time spent performing procedures. This medical document was created using an electronic medical record system with [employer] dictation system. Although this document has been carefully reviewed, there may still be some phonetic and typographical errors. These areas are purely typographical due to imperfections of the software programs, and do not reflect any compromise in the patient's medical care. Plan discussed with: Patient, Other (RN) My Orders Orders - MARIA C DÍAZ NP Procedure Category Date Status Time *Dr. Morales [facility] CONS 10/11/24 Transmitted -[place] 14:26 Atorvastatin (Lipitor) PHA 10/11/24 In Process 22:00 Basic Metabolic Panel LAB 10/12/24 Verified 05:00 Basic Metabolic Panel LAB 10/13/24 Verified 05:00 Basic Metabolic Panel LAB 10/14/24 Verified 05:00 Azithromycin 500mg/ PHA 10/12/24 In Process 250ml (Zithromax 50 10:00 Acetylcysteine Po PHA 10/11/24 In Process (For Agustina) (Mucomyst Po 14:30 Sodium Bicarb PHA 10/11/24 In Process 50meq/50ml Vial 14:45 Guaifenesin-Dextromet PHA 10/11/24 In Process Liquid (Robitussin 14:45 Date of Service: Oct 11, 2024 Billing Provider: MARIA C DÍAZ NP Common Visit Codes: [id number] CARE 30-74 MIN MARIA C DÍAZ NP Oct 11, 2024 15:53
[2024-10-11 16:46] LABS: COVID19 ANTIGEN SOFIA FIA NEGATIVE (NEGATIVE); Rapid Influenza A Negative (Negative); Rapid Influenza B Negative (Negative)
[2024-10-11 21:38] LABS: INR 1.18 (0.9-1.15); Partial Thromboplastin Time 47.1 SEC (24.5-34.5); Prothrombin Time 12.3 sec (9.3-11.8)
[2024-10-11 22:02] VITALS: O2SAT 96
[2024-10-11] MEDS: ATORVASTATIN 20 MG TAB PO SCH ×2 (23:16→23:17)
[2024-10-12] MEDS: ACETYLCYSTEINE 6GM/30ml (200mg/ml) IV SOLN 30ML IV ONE (01:02)
[2024-10-12 04:28] LABS: Hematocrit 30.2 % (41.0-53.0); Mean Corpuscular Hemoglobin 29.7 pg (28.0-32.0); Mean Corpuscular Hgb Conc. 33.3 g/dL (32.0-36.0); Mean Corpuscular Volume 89.3 fL (80.0-100.0); Platelet Count (auto) 269 10^3/uL (140-450); Red Blood Cells 3.38 10^6/uL (4.5-5.90); Red Cell Distribution Width 13.6 % (11.8-14.3); White Blood Cell 5.7 10^3/uL (4.4-10.8)
[2024-10-12 04:31] LABS: Band Neutrophils % (manual) 0; Basophils % (manual) 0 (0.0-2.0); Blast Cells 0; Eosinophils % (manual) 0 (0-7); Metamyelocytes % 0; Myelocytes % 0; Promyelocytes % 0; Reactive Lymphocytes 0
[2024-10-12 04:40] LABS: INR 1.14 (0.9-1.15); Partial Thromboplastin Time 54.9 SEC (24.5-34.5); Prothrombin Time 11.9 sec (9.3-11.8)
[2024-10-12 04:45] LABS: Alanine Aminotransferase 18 U/L (7-40); Alkaline Phosphatase 102 U/L (46-116); Anion Gap 10 (5-15); BUN/Creatinine Ratio 20.4 (10.0-20.0); Calcium 8.8 mg/dL (8.7-10.4); Carbon Dioxide 23 mmol/L (20-31); Chloride 101 mmol/L (98-107); Potassium 4.1 mmol/L (3.5-5.1); Total Protein 6.1 g/dL (5.7-8.2)
[2024-10-12 04:47] LABS: Albumin 2.7 g/dL (3.2-4.8); Aspartate Aminotransferase 44 U/L (13-40); Bilirubin, Total 0.2 mg/dL (0.2-1.0); Blood Urea Nitrogen 51 mg/dL (9-23); Glucose 123 mg/dL (74-106); Sodium 134 mmol/L (136-145)
[2024-10-12 04:54] LABS: Lymphocytes % (manual) 26 (10.0-50.0); Monocytes % (manual) 5 (0-12); Platelet Estimate Adequate
[2024-10-12 07:24] VITALS: O2SAT 95
[2024-10-12] MEDS ORDERED: ASPirin 81 mg TAB PO SCH (10:00)
[2024-10-12] MEDS: ASPirin 81 mg TAB PO SCH (11:03)
[2024-10-12 11:08] LABS: INR 1.12 (0.9-1.15); Partial Thromboplastin Time 49.3 SEC (24.5-34.5); Prothrombin Time 11.7 sec (9.3-11.8)
[2024-10-12] MEDS ORDERED: HEPARIN DRIP/D5W 100UNITS/ML 250 ML IV SCH (11:30)
[2024-10-12] MEDS: AZITHROMYCIN 500MG/ 250ML 250 ML IV SCH (11:37)
[2024-10-12] MEDS: ENOXAPARIN SOD 100 MG/1 ML SYRINGE SC SCH (12:36)
--- NOTE | 2024-10-12 13:11 | DVHPN2 ---
Consult Progress Note Subjective Other Systems: desk monitor shows episodes of sinus arrhythmia with PAC's and intermittent pauses (longest pause 1.6 seconds seen). Patient denies any cardiac symptoms such as chest pain or shortness of breath. Objective vital signs Vital Sign Date Time Temp Pulse Resp B/P (MAP) Pulse Ox O2 Delivery O2 Flow Rate FiO2 10/12/24 12:02 88 119/77 10/12/24 12:00 14 98 10/12/24 07:24 Nasal Cannula* 3 32 10/12/24 07:24 98.7 98.7 Total Intake and Output 10/11/24 10/11/24 10/12/24 15:00 23:00 07:00 Intake Total 512 ml 295 ml 728 ml Output Total 450 ml Balance 62 ml 295 ml 728 ml medications Current Medications Medications Dose Ordered Sig/Shavon Route Start Time Stop Time Status Last Admin Dose Admin Hydralazine HCl 10 mg Q6HP PRN IV 10/10/24 19:00 10/10/24 21:19 10 MG Carvedilol 3.125 mg Q12HR PO 10/10/24 22:00 10/12/24 11:02 3.125 MG Ondansetron HCl 4 mg Q4HP PRN IV 10/10/24 19:00 Acetaminophen 650 mg Q6HP PRN PO 10/10/24 19:00 Nitroglycerin 0.4 mg Q5MINP PRN SL 10/10/24 19:00 Morphine Sulfate 2 mg Q30M PRN IV 10/10/24 19:00 Ceftriaxone Sodium 50 ml @ 100 mls/hr DAILY@09 IV 10/10/24 19:04 10/12/24 11:01 100 MLS/HR Albuterol 2.5 mg Q6HPRN PRN NEB 10/10/24 19:00 Sodium Chloride 1,000 ml @ 75 mls/hr [id number] IV 10/11/24 12:00 10/12/24 02:39 75 MLS/HR Aspirin 81 mg DAILY PO 10/12/24 10:00 10/12/24 11:03 81 MG Atorvastatin Calcium 20 mg HS PO 10/11/24 22:00 10/11/24 23:16 20 MG Aspirin 81 mg DAILY PO 10/12/24 10:00 Cancel Atorvastatin Calcium 40 mg HS PO 10/11/24 22:00 10/11/24 23:17 40 MG Azithromycin 250 ml @ 125 mls/hr DAILY IV 10/12/24 10:00 10/12/24 11:37 125 MLS/HR Acetylcysteine 600 mg BID PO 10/11/24 14:30 10/13/24 14:29 10/12/24 12:29 600 MG Guaifenesin/ Dextromethorphan 10 ml Q4HP PRN PO 10/11/24 14:45 10/11/24 15:23 10 ML Enoxaparin Sodium 90 mg Q12HR SC 10/12/24 11:45 10/12/24 12:36 90 MG Examination: GENERAL:Normal, LUNGS:Normal, CVS:Normal, NEURO:Normal laboratory and microbiology Laboratory Tests 10/12/24 04:05 Test 10/12/24 04:05 Range/Units Serum Glucose 123 H 74-106 mg/dL Problem List/Assessment/Plan Problem List/Assessment/Plan NSTEMI, rule out type I Chronic HFpEF, NYHA class II Hypertension Hyperlipidemia Pneumonia Type 2 diabetes mellitus Obesity Plan/Recommendation (Dr. Kirkland): * Transthoracic echocardiogram reveals EF 50-55% with severe hypokinesis of the inferoposterior wall. Grade 2 diastolic dysfunction * Chest pain protocol * DANI score: 3 points * HEART score: 6 points * Continue heparin drip per protocol * Gentle IV fluid hydration * Lipid-lowering agent * D/C beta ena given pauses on monitor * Antibiotics per primary care team * Consider Nephrology consult Patient seen and examined at bedside with . The patient denies any chest pain or cardiac symptoms at time of assessment. Continue with IV hydration. Plan for coronary angiogram with improved creatinine tentatively on 10/15/24. Thank you for allowing us to care for this patient. Please call with any questions or concerns. Plan discussed with: Patient Date of Service: Oct 12, 2024 Billing Provider: TESFAYE ORTIZ Common Visit Codes: [id number] INP/OBS CARE(HIGH) TESFAYE ORTIZ Oct 12, 2024 13:11
--- NOTE | 2024-10-12 13:26 | DVHPN2 ---
Subjective Pt. reports cough. Reviewed: Care Plan, H&P, Labs, Medications Changes from previous H/P or p: No Changes General: Per HPI Objective Vitals Vital Signs Date Time Temp Pulse Resp B/P (MAP) Pulse Ox O2 Delivery O2 Flow Rate FiO2 10/12/24 12:02 88 119/77 10/12/24 12:00 14 98 10/12/24 07:24 Nasal Cannula* 3 32 10/12/24 07:24 98.7 98.7 Intake/Output Intake and Output 10/12/24 07:00 Intake Total 1535 ml Output Total 450 ml Balance 1085 ml Intake IV Total 1535 ml Output Urine Total 450 ml General Appearance: Alert, Oriented X3, Cooperative, No acute distress HEENT: Atraumatic, PERRLA Lungs: Clear to auscultation, Normal air movement Cardiovascular: Normal S1, Normal S2 Abdomen: Normal bowel sounds, Soft, No tenderness Genitourinary: No Apparent Abnormalities Musculoskeletal: Normal sensory function, Normal motor function Neuro: Normal speech Skin: Dry, Intact Psych/Mental Status: Mental status NL Medications Current Medications Medications Dose Ordered Sig/Shavon Route Start Time Stop Time Status Last Admin Dose Admin Hydralazine HCl 10 mg Q6HP PRN IV 10/10/24 19:00 10/10/24 21:19 10 MG Ondansetron HCl 4 mg Q4HP PRN IV 10/10/24 19:00 Acetaminophen 650 mg Q6HP PRN PO 10/10/24 19:00 Nitroglycerin 0.4 mg Q5MINP PRN SL 10/10/24 19:00 Morphine Sulfate 2 mg Q30M PRN IV 10/10/24 19:00 Ceftriaxone Sodium 50 ml @ 100 mls/hr DAILY@09 IV 10/10/24 19:04 10/12/24 11:01 100 MLS/HR Albuterol 2.5 mg Q6HPRN PRN NEB 10/10/24 19:00 Sodium Chloride 1,000 ml @ 75 mls/hr [id number] IV 10/11/24 12:00 10/12/24 02:39 75 MLS/HR Aspirin 81 mg DAILY PO 10/12/24 10:00 10/12/24 11:03 81 MG Atorvastatin Calcium 20 mg HS PO 10/11/24 22:00 10/11/24 23:16 20 MG Aspirin 81 mg DAILY PO 10/12/24 10:00 Cancel Atorvastatin Calcium 40 mg HS PO 10/11/24 22:00 10/11/24 23:17 40 MG Azithromycin 250 ml @ 125 mls/hr DAILY IV 10/12/24 10:00 10/12/24 11:37 125 MLS/HR Acetylcysteine 600 mg BID PO 10/11/24 14:30 10/13/24 14:29 10/12/24 12:29 600 MG Guaifenesin/ Dextromethorphan 10 ml Q4HP PRN PO 10/11/24 14:45 10/11/24 15:23 10 ML Enoxaparin Sodium 90 mg Q12HR SC 10/12/24 11:45 10/12/24 12:36 90 MG Laboratory Results Laboratory Tests 10/12/24 04:05 Chemistry Test 10/12/24 04:05 Albumin 2.7 g/dL (3.2-4.8) L Calcium Level 8.8 mg/dL (8.7-10.4) Total Protein 6.1 g/dL (5.7-8.2) Coagulation Test 10/11/24 14:02 10/11/24 21:00 10/12/24 04:05 10/12/24 10:25 Prothrombin Time 11.9 sec (9.3-11.8) H 12.3 sec (9.3-11.8) H 11.9 sec (9.3-11.8) H 11.7 sec (9.3-11.8) Prothrombin Time INR 1.14 (0.9-1.15) 1.18 (0.9-1.15) H 1.14 (0.9-1.15) 1.12 (0.9-1.15) Activated Partial Thromboplast Time 41.9 SEC (24.5-34.5) H 47.1 SEC (24.5-34.5) H 54.9 SEC (24.5-34.5) H 49.3 SEC (24.5-34.5) H LFT Test 10/12/24 04:05 Alanine Aminotransferase (ALT) 18 U/L (7-40) Alkaline Phosphatase 102 U/L (46-116) Aspartate Amino Transferase (AST) 44 U/L (13-40) H Total Bilirubin 0.2 mg/dL (0.2-1.0) Urinalysis Test 10/10/24 12:10 Urine Color Yellow (Yellow) Urine Clarity Turbid (Clear) H Urine pH 6.0 (5.0-9.0) Urine Specific [place] 1.023 (1.001-1.035) Urine Protein 3+ (Negative) H Urine Ketones 1+ (Negative) H Urine Blood 2+ /uL (Negative) H Urine Nitrite Negative (Negative) Urine Bilirubin Negative (Negative) Urine Urobilinogen Normal mg/dL (Negative) Urine Leukocyte Esterase Negative /uL (Negative) Urine RBC 6 /hpf (0 - 3) Urine Microscopic WBC 3 /HPF (0-3) Urine Squamous Epithelial Cells Few /hpf (<5) Urine Bacteria Few /hpf (None Seen) H Urine Mucus Few (None Seen) Urine Glucose 1+ mg/dL (Normal) H Microbiology Microbiology Date/Time Source Procedure Growth Status 10/10/24 13:06 Blood Blood Culture - Preliminary NO GROWTH AFTER 48 HOURS OF INCUBATION. Resulted Labs and/or images reviewed: Labs reviewed by me, Image(s) reviewed by me Assessment/Plan Assessment/Plan Impression: -sepsis -community-acquired pneumonia, probable Gram-positive/Gram-negative etiology -NSTEMI, probable type 1 -diabetes mellitus -primary hypertension -dyslipidemia -probable CKD stage IIIB/4 Plan: Events: no events overnight. WBC improving -cardiology consultation: Clarified that the plan is for left heart catheterization on 10/15/2024 -sodium bicarbonate drip x1 bag -Mucomyst p.o. times 48 hours -regular insulin sliding scale -antibiotic therapy: Rocephin, azithromycin -continue heparin drip -continue aspirin and statin -repeat labs, chest x-ray in a.m. -Transfer to Telemetry floor This medical document was created using an electronic medical record system with [employer] dictation system. Although this document has been carefully reviewed, there may still be some phonetic and typographical errors. These areas are purely typographical due to imperfections of the software programs, and do not reflect any compromise in the patient's medical care. Plan discussed with: Patient, Other (RN) My Orders Orders - MARIA C DÍAZ NP Procedure Category Date Status Time *Dr. Morales [facility] CONS 10/11/24 Transmitted -[place] 14:26 Atorvastatin (Lipitor) PHA 10/11/24 In Process 22:00 Basic Metabolic Panel LAB 10/13/24 Verified 05:00 Basic Metabolic Panel LAB 10/14/24 Verified 05:00 Azithromycin 500mg/ PHA 10/12/24 In Process 250ml (Zithromax 50 10:00 Acetylcysteine Po PHA 10/11/24 In Process (For Agustina) (Mucomyst Po 14:30 Guaifenesin-Dextromet PHA 10/11/24 In Process Liquid (Robitussin 14:45 Transfer Orders XFER 10/12/24 Transmitted 11:42 Enoxaparin Sodium PHA 10/12/24 In Process (Lovenox) 11:45 Date of Service: Oct 12, 2024 Billing Provider: MARIA C DÍAZ NP Common Visit Codes: [id number] INP/OBS CARE(HIGH) MARIA C DÍAZ NP Oct 12, 2024 13:26
[2024-10-12 15:36] VITALS: O2SAT 98
[2024-10-12 17:23] VITALS: BP 153/83; PULSE 83; RESP 18; TEMP 98.3; O2SAT 99
--- NOTE | 2024-10-12 19:01 | DVHINCON2 ---
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 Patient presented to the hospital complaining of a recent cold which was progressive and developed some chest pain and shortness of breath and afterward. He was admitted and upon evaluation noted to have elevated troponins and non ST elevated myocardial infarction. He is status post CTA of the chest to rule out pulmonary embolism which was negative. Nephrology consulted due to elevated creatinine level. Allergies: Coded Allergies: NO KNOWN ALLERGIES (Unverified , 10/10/24) Home Meds Reported Medications Lisinopril (Lisinopril) 10 Mg Tab, 1 TAB PO DAILY for 60 Days, #60 10/11/24 Current Medications Current Medications Medications (Trade) Dose Ordered Sig/Shavon Route PRN Reason Start Time Stop Time Status Last Admin Aspirin 81 mg DAILY PO 10/12/24 10:00 10/12/24 11:03 Atorvastatin Calcium (Lipitor) 20 mg HS PO 10/11/24 22:00 10/12/24 13:56 DC 10/11/24 23:16 Aspirin 81 mg DAILY PO 10/12/24 10:00 Cancel Atorvastatin Calcium (Lipitor) 40 mg HS PO 10/11/24 22:00 10/11/24 23:17 Azithromycin 250 ml @ 125 mls/hr DAILY IV 10/12/24 10:00 10/12/24 11:37 Heparin Sodium/ Dextrose 250 ml @ 16 mls/hr [id number] IV 10/11/24 22:15 10/12/24 11:17 DC 10/11/24 22:15 Heparin Sodium/ Dextrose 250 ml @ 18 mls/hr [id number] IV 10/12/24 11:30 10/12/24 11:44 DC Enoxaparin Sodium (Lovenox) 90 mg Q12HR SC 10/12/24 11:45 10/12/24 12:36 Family History: FH: alcohol abuse G8 FATHER FHx: lung disease G8 FATHER Sepsis Suicide G8 MOTHER Review of Systems Shortness of breath and chest discomfort H&P Exam Vital Signs/I&O Vital Sign Date Time Temp Pulse Resp B/P (MAP) Pulse Ox O2 Delivery O2 Flow Rate FiO2 10/12/24 17:23 83 18 99 Nasal Cannula* 3 32 10/12/24 17:23 98.3 153/83 (106) 98.3 Intake and Output 10/11/24 10/12/24 19:00 07:00 Intake Total 554 ml 981 ml Output Total 450 ml Balance 104 ml 981 ml Intake IV Total 554 ml 981 ml Output Urine Total 450 ml Physical Exam Elderly male Nonacute distress Abdomen is soft No crackles No pitting edema Regular rate and rhythm Labs/Diagnostic Data Labs/Diagnostic Data Laboratory Tests Test 10/12/24 10:25 10/12/24 04:05 10/11/24 21:00 10/11/24 16:01 Range/Units Prothrombin Time 11.7 11.9 H 12.3 H 9.3-11.8 sec Prothrombin Time INR 1.12 1.14 1.18 H 0.9-1.15 Activated Partial Thromboplast Time 49.3 H 54.9 H 47.1 H 24.5-34.5 SEC White Blood Count 5.7 4.4-10.8 10^3/uL Red Blood Count 3.38 L 4.5-5.90 10^6/uL Hemoglobin 10.0 L 13.5-17.5 g/dL Hematocrit 30.2 L 41.0-53.0 % Mean Corpuscular Volume 89.3 80.0-100.0 fL Mean Corpuscular Hemoglobin 29.7 28.0-32.0 pg Mean Corpuscular Hemoglobin Concent 33.3 32.0-36.0 g/dL Red Cell Distribution Width 13.6 11.8-14.3 % Platelet Count 269 140-450 10^3/uL Mean Platelet Volume 8.7 6.9-10.8 fL Neutrophils (%) (Auto) 37.0-80.0 % Lymphocytes (%) (Auto) 10.0-50.0 % Monocytes (%) (Auto) 0.0-12.0 % Basophils (%) (Auto) 0.0-2.0 % Neutrophils # (Auto) 1.6-8.6 10 ^3/uL Lymphocytes # (Auto) 0.4-5.4 10 ^3/uL Monocytes # (Auto) 0-1.3 10 ^3/uL Differential Total Cells Counted 100.0 100 Neutrophils % (Manual) 69 37.0-80.0 Band Neutrophils % (Manual) 0 Lymphocytes % (Manual) 26 10.0-50.0 Monocytes % (Manual) 5 0-12 Eosinophils % (Manual) 0 0-7 Basophils % (Manual) 0 0.0-2.0 Metamyelocytes % (manual) 0 Myelocytes % (Manual) 0 Promyelocytes % (Manual) 0 Blast Cells % (Manual) 0 Reactive Lymphocytes 0 Platelet Estimate Adequate Sodium Level 134 L 136-145 mmol/L Potassium Level 4.1 3.5-5.1 mmol/L Chloride Level 101 98-107 mmol/L Carbon Dioxide Level 23 20-31 mmol/L Anion Gap 10 5-15 Blood Urea Nitrogen 51 H 9-23 mg/dL Creatinine 2.50 H 0.700-1.30 mg/dL Glomerular Filtration Rate Calc 29 >90 mL/min BUN/Creatinine Ratio 20.4 H 10.0-20.0 Serum Glucose 123 H 74-106 mg/dL Calcium Level 8.8 8.7-10.4 mg/dL Total Bilirubin 0.2 0.2-1.0 mg/dL Aspartate Amino Transferase (AST) 44 H 13-40 U/L Alanine Aminotransferase (ALT) 18 7-40 U/L Alkaline Phosphatase 102 46-116 U/L Total Protein 6.1 5.7-8.2 g/dL Albumin 2.7 L 3.2-4.8 g/dL Influenza Type A Antigen Negative Negative Influenza Type B Antigen Negative Negative SARS-CoV-2 Antigen (Rapid) Negative NEGATIVE Test 10/11/24 14:02 10/11/24 06:54 10/11/24 06:40 10/10/24 19:09 Range/Units Prothrombin Time 11.9 H 12.3 H 12.5 H 9.3-11.8 sec Prothrombin Time INR 1.14 1.18 H 1.20 H 0.9-1.15 Activated Partial Thromboplast Time 41.9 H 41.1 H 37.6 H 24.5-34.5 SEC White Blood Count 7.2 # 4.4-10.8 10^3/uL Red Blood Count 3.39 L 4.5-5.90 10^6/uL Hemoglobin 10.1 L 13.5-17.5 g/dL Hematocrit 29.9 #L 41.0-53.0 % Mean Corpuscular Volume 88.2 80.0-100.0 fL Mean Corpuscular Hemoglobin 29.9 28.0-32.0 pg Mean Corpuscular Hemoglobin Concent 33.9 32.0-36.0 g/dL Red Cell Distribution Width 13.7 11.8-14.3 % Platelet Count 330 140-450 10^3/uL Mean Platelet Volume 8.3 6.9-10.8 fL Neutrophils (%) (Auto) 37.0-80.0 % Lymphocytes (%) (Auto) 10.0-50.0 % Monocytes (%) (Auto) 0.0-12.0 % Basophils (%) (Auto) 0.0-2.0 % Neutrophils # (Auto) 1.6-8.6 10 ^3/uL Lymphocytes # (Auto) 0.4-5.4 10 ^3/uL Monocytes # (Auto) 0-1.3 10 ^3/uL Differential Total Cells Counted 100.0 100 Neutrophils % (Manual) 76 37.0-80.0 Band Neutrophils % (Manual) 6 Lymphocytes % (Manual) 7 L 10.0-50.0 Monocytes % (Manual) 11 0-12 Eosinophils % (Manual) 0 0-7 Basophils % (Manual) 0 0.0-2.0 Metamyelocytes % (manual) 0 Myelocytes % (Manual) 0 Promyelocytes % (Manual) 0 Blast Cells % (Manual) 0 Reactive Lymphocytes 0 Platelet Estimate Adequate Sodium Level 132 L 136-145 mmol/L Potassium Level 5.0 3.5-5.1 mmol/L Chloride Level 99 98-107 mmol/L Carbon Dioxide Level 25 20-31 mmol/L Anion Gap 8 5-15 Blood Urea Nitrogen 44 H 9-23 mg/dL Creatinine 2.39 H 0.700-1.30 mg/dL Glomerular Filtration Rate Calc 30 >90 mL/min BUN/Creatinine Ratio 18.4 10.0-20.0 Serum Glucose 100 74-106 mg/dL Calcium Level 8.4 L 8.7-10.4 mg/dL Magnesium Level 2.0 1.6-2.6 mg/dL Triglycerides Level 118 < 150 mg/dL Cholesterol Level 151 < 200 mg/dL LDL Cholesterol 108 H < 100 mg/dL HDL Cholesterol 27 L 40-59 mg/dL Thyroid Stimulating Hormone (TSH) 1.07 0.55-4.78 uIU/mL Hemoglobin A1c 6.6 H <5.7 % A1C Troponin I High Sensitivity 72388 *H </=54 ng/L Test 10/10/24 16:01 10/10/24 14:55 10/10/24 13:06 10/10/24 12:10 Range/Units Troponin I High Sensitivity 8674 *H 8470 *H 9566 *H </=54 ng/L Sodium Level 129 L 136-145 mmol/L Potassium Level 4.8 3.5-5.1 mmol/L Chloride Level 99 98-107 mmol/L Carbon Dioxide Level 22 20-31 mmol/L Anion Gap 8 5-15 Blood Urea Nitrogen 37 H 9-23 mg/dL Creatinine 2.23 H 0.700-1.30 mg/dL Glomerular Filtration Rate Calc 33 >90 mL/min BUN/Creatinine Ratio 16.6 10.0-20.0 Serum Glucose 108 H 74-106 mg/dL Calcium Level 8.9 8.7-10.4 mg/dL White Blood Count 11.4 H 4.4-10.8 10^3/uL Red Blood Count 4.02 L 4.5-5.90 10^6/uL Hemoglobin 11.8 L 13.5-17.5 g/dL Hematocrit 35.5 L 41.0-53.0 % Mean Corpuscular Volume 88.4 80.0-100.0 fL Mean Corpuscular Hemoglobin 29.3 28.0-32.0 pg Mean Corpuscular Hemoglobin Concent 33.1 32.0-36.0 g/dL Red Cell Distribution Width 13.9 11.8-14.3 % Platelet Count 400 140-450 10^3/uL Mean Platelet Volume 8.9 6.9-10.8 fL Neutrophils (%) (Auto) 83.7 H 37.0-80.0 % Lymphocytes (%) (Auto) 6.9 L 10.0-50.0 % Monocytes (%) (Auto) 9.3 0.0-12.0 % Eosinophils (%) (Auto) 0.0 0.0-7.0 % Basophils (%) (Auto) 0.1 0.0-2.0 % Neutrophils # (Auto) 9.5 H 1.6-8.6 10 ^3/uL Lymphocytes # (Auto) 0.8 0.4-5.4 10 ^3/uL Monocytes # (Auto) 1.1 0-1.3 10 ^3/uL Eosinophils # (Auto) 0 0-0.8 10 ^3/uL Basophils # (Auto) 0 0-0.2 10 ^3/uL Nucleated Red Blood Cells 0.0 % D-Dimer, Quantitative 2.81 H 0.0-0.49 mg/L FEU Lactic Acid Level 1.7 0.4-2.0 mmol/L B-Type Natriuretic Peptide 1022.23 0-100 pg/mL Urine Color Yellow Yellow Urine Clarity Turbid H Clear Urine pH 6.0 5.0-9.0 Urine Specific [place] 1.023 1.001-1.035 Urine Protein 3+ H Negative Urine Ketones 1+ H Negative Urine Blood 2+ H Negative /uL Urine Nitrite Negative Negative Urine Bilirubin Negative Negative Urine Urobilinogen Normal Negative mg/dL Urine Leukocyte Esterase Negative Negative /uL Urine RBC 6 0 - 3 /hpf Urine Microscopic WBC 3 0-3 /HPF Urine Squamous Epithelial Cells Few <5 /hpf Urine Bacteria Few H None Seen /hpf Urine Mucus Few None Seen Urine Glucose 1+ H Normal mg/dL Assessment Acute kidney injury on chronic kidney disease stage 3? Prerenal disease? Hypertension Non ST elevated myocardial infarction Diabetes Proteinuria Agree with gentle hydration to help excrete contrast dye Avoid hypotension Strict Is&Os monitor urinary output Cardiology consultation noted planned for possible cardiac catheterization in the next 2-3 days. Recommend continue IV fluids over the next few days and post treatment. Plan discussed with: Patient PRABHU ERNANDEZ MD Oct 12, 2024 19:01
[2024-10-12 19:40] VITALS: PULSE 98; RESP 18; O2SAT 96
[2024-10-12 22:06] VITALS: BP 148/79; PULSE 99; RESP 18; TEMP 100.1; O2SAT 96
[2024-10-12 22:41] LABS: Creatinine, Urine 96.58 mg/dL (30.0-125.0)
[2024-10-12 22:43] LABS: Amphetamine Screen, Urine Neg (NEGATIVE); Barbiturate Scree,Urine Neg (NEGATIVE); Benzodiazephine Screen, Urine Neg (NEGATIVE); Cannabinoid Screen, Urine Neg (NEGATIVE); Cocaine Screen, Urine Neg (NEGATIVE); Opiate Scree,Urine Neg (NEGATIVE); Phencyclidine Screen, Urine Neg (NEGATIVE)
[2024-10-13] VITALS (12 sets, daily range): BP systolic 121–173; BP diastolic 69–99; PULSE 85–109; RESP 16–18; TEMP 97.5–100.9; O2SAT 79–96
[2024-10-13] MEDS: ACETAMINOPHEN 325 MG TAB PO PRN (00:54)
[2024-10-13 06:49] LABS: Calcium 8.7 mg/dL (8.7-10.4); Chloride 102 mmol/L (98-107); Potassium 4.2 mmol/L (3.5-5.1)
[2024-10-13 06:50] LABS: Anion Gap 10 (5-15); Carbon Dioxide 22 mmol/L (20-31)
[2024-10-13 06:55] LABS: BUN/Creatinine Ratio 19.6 (10.0-20.0)
[2024-10-13 06:56] LABS: Blood Urea Nitrogen 46 mg/dL (9-23); Glucose 122 mg/dL (74-106); Sodium 134 mmol/L (136-145)
--- NOTE | 2024-10-13 10:38 | DVHPN2 ---
Progress Note Date Seen: Oct 13, 2024 Medical Necessity Reason Pt with a Central, PICC or Fol: No Subjective Patient reports: Feels better Objective vital signs Vital Sign Date Time Temp Pulse Resp B/P (MAP) Pulse Ox O2 Delivery O2 Flow Rate FiO2 10/13/24 09:40 96 Nasal Cannula* 2 28 10/13/24 09:15 97.5 97 17 146/81 (102) 97.5 Total Intake and Output 10/12/24 10/12/24 10/13/24 14:59 22:59 06:59 Intake Total 998 ml 100 ml 1100 ml Balance 998 ml 100 ml 1100 ml medications Current Medications Medications Dose Ordered Sig/Shavon Route Start Time Stop Time Status Last Admin Dose Admin Hydralazine HCl 10 mg Q6HP PRN IV 10/10/24 19:00 10/13/24 00:53 10 MG Ondansetron HCl 4 mg Q4HP PRN IV 10/10/24 19:00 Acetaminophen 650 mg Q6HP PRN PO 10/10/24 19:00 10/13/24 00:54 650 MG Nitroglycerin 0.4 mg Q5MINP PRN SL 10/10/24 19:00 Morphine Sulfate 2 mg Q30M PRN IV 10/10/24 19:00 Ceftriaxone Sodium 50 ml @ 100 mls/hr DAILY@09 IV 10/10/24 19:04 10/13/24 10:15 100 MLS/HR Albuterol 2.5 mg Q6HPRN PRN NEB 10/10/24 19:00 Sodium Chloride 1,000 ml @ 75 mls/hr [id number] IV 10/11/24 12:00 10/12/24 21:14 75 MLS/HR Aspirin 81 mg DAILY PO 10/12/24 10:00 10/13/24 10:16 81 MG Aspirin 81 mg DAILY PO 10/12/24 10:00 Cancel Atorvastatin Calcium 40 mg HS PO 10/11/24 22:00 10/12/24 21:01 40 MG Azithromycin 250 ml @ 125 mls/hr DAILY IV 10/12/24 10:00 10/12/24 11:37 125 MLS/HR Acetylcysteine 600 mg BID PO 10/11/24 14:30 10/13/24 14:29 10/12/24 20:57 600 MG Guaifenesin/ Dextromethorphan 10 ml Q4HP PRN PO 10/11/24 14:45 10/13/24 00:54 10 ML Enoxaparin Sodium 90 mg Q12HR SC 10/12/24 11:45 10/13/24 10:16 90 MG Examination: GENERAL:Normal, CVS:Normal, ABDOMEN:Normal laboratory and microbiology Laboratory Tests 10/13/24 05:42 10/12/24 04:05 Test 10/13/24 05:42 Range/Units Serum Glucose 122 H 74-106 mg/dL Microbiology Date/Time Source Procedure Growth Status 10/10/24 13:06 Blood Blood Culture - Preliminary NO GROWTH AFTER 48 HOURS OF INCUBATION. Resulted Problem List/Assessment/Plan Problem List/Assessment/Plan Acute kidney injury on chronic kidney disease stage 3 Prerenal disease FENA 1% Hypertension Non ST elevated myocardial infarction Diabetes Proteinuria Agree with gentle hydration to help excrete contrast dye Avoid hypotension Strict Is&Os monitor urinary output Cardiology consultation noted planned for possible cardiac catheterization in the next 2-3 days. Recommend continue IV fluids over the next few days and post treatment. Plan discussed with: Patient PRABHU ERNANDEZ MD Oct 13, 2024 10:38
[2024-10-13] MEDS: NOREPINEPHRINE 8 MG/250ML KIT 250 ML IV ONE (10:59)
--- NOTE | 2024-10-13 12:17 | DVHPN2 ---
Consult Progress Note Subjective Other Systems: The patient remains in normal sinus rhythm on library monitor with occasional PACs. Patient denies any chest pain, shortness of breath or other cardiac symptoms. Objective vital signs Vital Sign Date Time Temp Pulse Resp B/P (MAP) Pulse Ox O2 Delivery O2 Flow Rate FiO2 10/13/24 09:40 96 Nasal Cannula* 2 28 10/13/24 09:15 97.5 97 17 146/81 (102) 97.5 Total Intake and Output 10/12/24 10/12/24 10/13/24 15:00 23:00 07:00 Intake Total 998 ml 100 ml 1100 ml Balance 998 ml 100 ml 1100 ml medications Current Medications Medications Dose Ordered Sig/Shavon Route Start Time Stop Time Status Last Admin Dose Admin Hydralazine HCl 10 mg Q6HP PRN IV 10/10/24 19:00 10/13/24 00:53 10 MG Ondansetron HCl 4 mg Q4HP PRN IV 10/10/24 19:00 Acetaminophen 650 mg Q6HP PRN PO 10/10/24 19:00 10/13/24 00:54 650 MG Nitroglycerin 0.4 mg Q5MINP PRN SL 10/10/24 19:00 Morphine Sulfate 2 mg Q30M PRN IV 10/10/24 19:00 Ceftriaxone Sodium 50 ml @ 100 mls/hr DAILY@09 IV 10/10/24 19:04 10/13/24 10:15 100 MLS/HR Albuterol 2.5 mg Q6HPRN PRN NEB 10/10/24 19:00 Sodium Chloride 1,000 ml @ 75 mls/hr [id number] IV 10/11/24 12:00 10/12/24 21:14 75 MLS/HR Aspirin 81 mg DAILY PO 10/12/24 10:00 10/13/24 10:16 81 MG Aspirin 81 mg DAILY PO 10/12/24 10:00 Cancel Atorvastatin Calcium 40 mg HS PO 10/11/24 22:00 10/12/24 21:01 40 MG Azithromycin 250 ml @ 125 mls/hr DAILY IV 10/12/24 10:00 10/12/24 11:37 125 MLS/HR Acetylcysteine 600 mg BID PO 10/11/24 14:30 10/13/24 14:29 10/13/24 11:50 600 MG Guaifenesin/ Dextromethorphan 10 ml Q4HP PRN PO 10/11/24 14:45 10/13/24 00:54 10 ML Enoxaparin Sodium 90 mg Q12HR SC 10/12/24 11:45 10/13/24 10:16 90 MG Examination: GENERAL:Normal, LUNGS:Normal, CVS:Normal, NEURO:Normal laboratory and microbiology Laboratory Tests 10/13/24 05:42 10/12/24 04:05 Test 10/13/24 05:42 Range/Units Serum Glucose 122 H 74-106 mg/dL Problem List/Assessment/Plan Problem List/Assessment/Plan NSTEMI, rule out type I Chronic HFpEF, NYHA class II Hypertension Hyperlipidemia Pneumonia Type 2 diabetes mellitus Obesity Plan/Recommendation (Dr. Kirkland): * Transthoracic echocardiogram reveals EF 50-55% with severe hypokinesis of the inferoposterior wall. Grade 2 diastolic dysfunction * Chest pain protocol * DANI score: 3 points * HEART score: 6 points * Primary care team switched patient over to therapeutic Lovenox * Gentle IV fluid hydration * Lipid-lowering agent * D/C beta ena given pauses on monitor * Antibiotics per primary care team * Nephrology consult and recommendations Patient seen and examined at bedside with . The patient denies any chest pain or cardiac symptoms at time of assessment. Continue with IV hydration. Plan for coronary angiogram with improved creatinine tentatively on 10/15/24. Thank you for allowing us to care for this patient. Please call with any questions or concerns. This medical document was created using an electronic medical record system with voice recognition software and computerized dictation system. Although this document has been carefully reviewed, there might still be some phonetic and typographical errors. Occasional wrong-word or ``sound-alike substitutions may have occurred due to the inherent limitations of voice recognition software. These areas are purely typographical due to imperfections of the software programs and do not reflect any compromise in the patient's medical care. Please read the chart carefully and recognize, using context, where these substitutions have occurred. Plan discussed with: Patient Date of Service: Oct 13, 2024 Billing Provider: TESFAYE ORTIZ Common Visit Codes: [id number] INP/OBS CARE(HIGH) TESFAYE ORTIZ Oct 13, 2024 12:17
--- NOTE | 2024-10-13 14:20 | DVHPN2 ---
Subjective Pt. reports cough. Reviewed: Care Plan, H&P, Labs, Medications Changes from previous H/P or p: No Changes General: Per HPI Objective Vitals Vital Signs Date Time Temp Pulse Resp B/P (MAP) Pulse Ox O2 Delivery O2 Flow Rate FiO2 10/13/24 13:00 97.5 101 18 155/92 (113) 92 97.5 10/13/24 09:40 Nasal Cannula* 2 28 Intake/Output Intake and Output 10/13/24 07:00 Intake Total 2198 ml Balance 2198 ml Intake Oral 400 ml IV Total 1798 ml # Voids 1 General Appearance: Alert, Oriented X3, Cooperative, No acute distress HEENT: Atraumatic, PERRLA Lungs: Clear to auscultation, Normal air movement Cardiovascular: Normal S1, Normal S2 Abdomen: Normal bowel sounds, Soft, No tenderness Genitourinary: No Apparent Abnormalities Musculoskeletal: Normal sensory function, Normal motor function Neuro: Normal speech Skin: Dry, Intact Psych/Mental Status: Mental status NL Medications Current Medications Medications Dose Ordered Sig/Shavon Route Start Time Stop Time Status Last Admin Dose Admin Hydralazine HCl 10 mg Q6HP PRN IV 10/10/24 19:00 10/13/24 00:53 10 MG Ondansetron HCl 4 mg Q4HP PRN IV 10/10/24 19:00 Acetaminophen 650 mg Q6HP PRN PO 10/10/24 19:00 10/13/24 00:54 650 MG Nitroglycerin 0.4 mg Q5MINP PRN SL 10/10/24 19:00 Morphine Sulfate 2 mg Q30M PRN IV 10/10/24 19:00 Ceftriaxone Sodium 50 ml @ 100 mls/hr DAILY@09 IV 10/10/24 19:04 10/13/24 10:15 100 MLS/HR Albuterol 2.5 mg Q6HPRN PRN NEB 10/10/24 19:00 Sodium Chloride 1,000 ml @ 75 mls/hr [id number] IV 10/11/24 12:00 10/12/24 21:14 75 MLS/HR Aspirin 81 mg DAILY PO 10/12/24 10:00 10/13/24 10:16 81 MG Aspirin 81 mg DAILY PO 10/12/24 10:00 Cancel Atorvastatin Calcium 40 mg HS PO 10/11/24 22:00 10/12/24 21:01 40 MG Azithromycin 250 ml @ 125 mls/hr DAILY IV 10/12/24 10:00 10/12/24 11:37 125 MLS/HR Acetylcysteine 600 mg BID PO 10/11/24 14:30 10/13/24 14:29 10/13/24 11:50 600 MG Guaifenesin/ Dextromethorphan 10 ml Q4HP PRN PO 10/11/24 14:45 10/13/24 13:16 10 ML Enoxaparin Sodium 90 mg Q12HR SC 10/12/24 11:45 10/13/24 10:16 90 MG Laboratory Results Laboratory Tests 10/12/24 04:05 10/13/24 05:42 Chemistry Test 10/13/24 05:42 Calcium Level 8.7 mg/dL (8.7-10.4) Urinalysis Test 10/10/24 12:10 10/12/24 21:00 Urine Color Yellow (Yellow) Urine Clarity Turbid (Clear) H Urine pH 6.0 (5.0-9.0) Urine Specific [place] 1.023 (1.001-1.035) Urine Protein 3+ (Negative) H Urine Ketones 1+ (Negative) H Urine Blood 2+ /uL (Negative) H Urine Nitrite Negative (Negative) Urine Bilirubin Negative (Negative) Urine Urobilinogen Normal mg/dL (Negative) Urine Leukocyte Esterase Negative /uL (Negative) Urine RBC 6 /hpf (0 - 3) Urine Microscopic WBC 3 /HPF (0-3) Urine Squamous Epithelial Cells Few /hpf (<5) Urine Bacteria Few /hpf (None Seen) H Urine Mucus Few (None Seen) Urine Glucose 1+ mg/dL (Normal) H Urine Osmolality 438 mOsm/kg Urine Creatinine 96.58 mg/dL (30.0-125.0) Urine Sodium 49 mmol/L (40-220) Microbiology Microbiology Date/Time Source Procedure Growth Status 10/10/24 13:06 Blood Blood Culture - Preliminary NO GROWTH AFTER 72 HOURS OF INCUBATION. Resulted Labs and/or images reviewed: Labs reviewed by me, Image(s) reviewed by me Assessment/Plan Assessment/Plan Impression: -sepsis -community-acquired pneumonia, probable Gram-positive/Gram-negative etiology -NSTEMI, probable type 1 -diabetes mellitus -primary hypertension -dyslipidemia -probable CKD stage IIIB/4 Plan: Events: no events overnight. Continues to complain of cough. -cardiology consultation: Clarified that the plan is for left heart catheterization on 10/15/2024 -Mucomyst p.o. times 48 hours -regular insulin sliding scale -antibiotic therapy: Rocephin, azithromycin -continue anticoagulation with Lovenox -change antitussive medication to Robitussin with codeine -continue aspirin and statin -repeat labs, chest x-ray in a.m. This medical document was created using an electronic medical record system with [employer] dictation system. Although this document has been carefully reviewed, there may still be some phonetic and typographical errors. These areas are purely typographical due to imperfections of the software programs, and do not reflect any compromise in the patient's medical care. Plan discussed with: Patient, Other (Rn) Date of Service: Oct 13, 2024 Billing Provider: MARIA C DÍAZ NP Common Visit Codes: [id number] INP/OBS CARE(HIGH) MARIA C DÍAZ NP Oct 13, 2024 14:20
[2024-10-13] MEDS: guaiFENesin-CODEINE Liq 5 ML UD PO PRN (15:22)
--- NOTE | 2024-10-13 21:47 | DVHINCON2 ---
Date of service: Oct 13, 2024 Referring Physician Steve Fink NP Reason for Consultation Acute hypoxic respiratory failure, pulmonary nodule History of Present Illness A 59-year-old man with PMHx of hypertension and diabetes who presented to ED on 10/10/24 for evaluation of flu-like symptoms. Patient reports a 2-month history of shortness of breath with dizziness and a nonproductive cough. He also reported intermittent chills. Denied chest pain or palpitations. No other acute complaints reported. Initial 12-lead electrocardiogram revealed normal sinus rhythm with nonspecific ST segment changes to lateral leads. Initial troponin level of 9566ng/L with peak level at 43715vk/L. Patient was admitted for further care and pulmonary consultation is requested for evaluation and management due to these findings. Review of Systems: 14-point review of systems negative unless otherwise noted above. Past Medical History: Hypertension and diabetes mellitus Past Surgical History: Denies Medications: Reviewed. Allergies: No known drug allergies. Family History: No family history of premature CAD. No family history of lung disorders. Social History: Former smoker. Patient has a 30 pack-year history, quit smoking approximately 11 years ago No alcohol or illicit drug use. Family History: FH: alcohol abuse G8 FATHER FHx: lung disease G8 FATHER Sepsis Suicide G8 MOTHER Allergies: Coded Allergies: NO KNOWN ALLERGIES (Unverified , 10/10/24) Home Meds Reported Medications Lisinopril (Lisinopril) 10 Mg Tab, 1 TAB PO DAILY for 60 Days, #60 10/11/24 Current Medications Current Medications Medications (Trade) Dose Ordered Sig/Shavon Route PRN Reason Start Time Stop Time Status Last Admin Guaifenesin/ Codeine Phosphate (Robitussin/ Codeine Liq) 5 ml Q4HPRN PRN PO FOR COUGH 10/13/24 14:30 10/13/24 15:22 Vital Signs Vital Signs Date Time Temp Pulse Resp B/P (MAP) Pulse Ox O2 Delivery O2 Flow Rate FiO2 10/13/24 21:00 98.5 99 18 137/82 (100) 94 98.5 10/13/24 09:40 Nasal Cannula* 2 28 Physical Exam Gen.: Patient lying in bed in no apparent distress. On supplemental oxygen. Head: Normocephalic, atraumatic. Eyes: EOMI/PERRLA. Ears: Normal hearing. Normal anatomy. Neck/trachea: Trachea midline, supple. Nose: Normal external anatomy. Mouth: Moist mucous membranes. Chest: Decreased air entry bilaterally. No wheezing or rhonchi. Cardiovascular: Positive S1, positive S2. Regular rate and rhythm. Abdomen: Positive bowel sounds in all 4 quadrants. Soft, non-tender, non- distended. : Deferred. Rectal: Deferred. Skin: Warm, dry. Intact. Extremities: 2+ radial pulses bilaterally. No lower extremity edema. Neuro: Awake, alert, oriented x3. No gross motor or sensory deficits. Cranial nerves II through XII intact. Gait not assessed. Labs/Diagnostic Data Labs Test 10/13/24 05:42 10/12/24 21:00 10/12/24 10:25 10/12/24 04:05 Range/Units Sodium Level 134 L 136-145 mmol/L Potassium Level 4.2 3.5-5.1 mmol/L Chloride Level 102 98-107 mmol/L Carbon Dioxide Level 22 20-31 mmol/L Anion Gap 10 5-15 Blood Urea Nitrogen 46 H 9-23 mg/dL Creatinine 2.35 H 0.700-1.30 mg/dL Glomerular Filtration Rate Calc 31 >90 mL/min BUN/Creatinine Ratio 19.6 10.0-20.0 Serum Glucose 122 H 74-106 mg/dL Calcium Level 8.7 8.7-10.4 mg/dL Urine Osmolality 438 mOsm/kg Urine Creatinine 96.58 30.0-125.0 mg/dL Urine Sodium 49 40-220 mmol/L Urine Opiates Screen Neg NEGATIVE Urine Fentanyl Screen Neg NEGATIVE Urine Barbiturates Screen Neg NEGATIVE Urine Phencyclidine Screen Neg NEGATIVE Urine Amphetamines Screen Neg NEGATIVE Urine Benzodiazepines Screen Neg NEGATIVE Urine Cocaine Screen Neg NEGATIVE Urine Cannabinoids Screen Neg NEGATIVE Prothrombin Time 11.7 9.3-11.8 sec Prothrombin Time INR 1.12 0.9-1.15 Activated Partial Thromboplast Time 49.3 H 24.5-34.5 SEC White Blood Count 5.7 4.4-10.8 10^3/uL Red Blood Count 3.38 L 4.5-5.90 10^6/uL Hemoglobin 10.0 L 13.5-17.5 g/dL Hematocrit 30.2 L 41.0-53.0 % Mean Corpuscular Volume 89.3 80.0-100.0 fL Mean Corpuscular Hemoglobin 29.7 28.0-32.0 pg Mean Corpuscular Hemoglobin Concent 33.3 32.0-36.0 g/dL Red Cell Distribution Width 13.6 11.8-14.3 % Platelet Count 269 140-450 10^3/uL Mean Platelet Volume 8.7 6.9-10.8 fL Neutrophils (%) (Auto) 37.0-80.0 % Lymphocytes (%) (Auto) 10.0-50.0 % Monocytes (%) (Auto) 0.0-12.0 % Basophils (%) (Auto) 0.0-2.0 % Neutrophils # (Auto) 1.6-8.6 10 ^3/uL Lymphocytes # (Auto) 0.4-5.4 10 ^3/uL Monocytes # (Auto) 0-1.3 10 ^3/uL Differential Total Cells Counted 100.0 100 Neutrophils % (Manual) 69 37.0-80.0 Band Neutrophils % (Manual) 0 Lymphocytes % (Manual) 26 10.0-50.0 Monocytes % (Manual) 5 0-12 Eosinophils % (Manual) 0 0-7 Basophils % (Manual) 0 0.0-2.0 Metamyelocytes % (manual) 0 Myelocytes % (Manual) 0 Promyelocytes % (Manual) 0 Blast Cells % (Manual) 0 Reactive Lymphocytes 0 Platelet Estimate Adequate Total Bilirubin 0.2 0.2-1.0 mg/dL Aspartate Amino Transferase (AST) 44 H 13-40 U/L Alanine Aminotransferase (ALT) 18 7-40 U/L Alkaline Phosphatase 102 46-116 U/L Total Protein 6.1 5.7-8.2 g/dL Albumin 2.7 L 3.2-4.8 g/dL Test 10/11/24 16:01 10/11/24 06:54 10/11/24 06:40 10/10/24 19:09 Range/Units Influenza Type A Antigen Negative Negative Influenza Type B Antigen Negative Negative SARS-CoV-2 Antigen (Rapid) Negative NEGATIVE Magnesium Level 2.0 1.6-2.6 mg/dL Triglycerides Level 118 < 150 mg/dL Cholesterol Level 151 < 200 mg/dL LDL Cholesterol 108 H < 100 mg/dL HDL Cholesterol 27 L 40-59 mg/dL Thyroid Stimulating Hormone (TSH) 1.07 0.55-4.78 uIU/mL Hemoglobin A1c 6.6 H <5.7 % A1C Troponin I High Sensitivity 99148 *H </=54 ng/L Test 10/10/24 13:06 10/10/24 12:10 Range/Units Eosinophils (%) (Auto) 0.0 0.0-7.0 % Eosinophils # (Auto) 0 0-0.8 10 ^3/uL Basophils # (Auto) 0 0-0.2 10 ^3/uL Nucleated Red Blood Cells 0.0 % D-Dimer, Quantitative 2.81 H 0.0-0.49 mg/L FEU Lactic Acid Level 1.7 0.4-2.0 mmol/L B-Type Natriuretic Peptide 1022.23 0-100 pg/mL Urine Color Yellow Yellow Urine Clarity Turbid H Clear Urine pH 6.0 5.0-9.0 Urine Specific [place] 1.023 1.001-1.035 Urine Protein 3+ H Negative Urine Ketones 1+ H Negative Urine Blood 2+ H Negative /uL Urine Nitrite Negative Negative Urine Bilirubin Negative Negative Urine Urobilinogen Normal Negative mg/dL Urine Leukocyte Esterase Negative Negative /uL Urine RBC 6 0 - 3 /hpf Urine Microscopic WBC 3 0-3 /HPF Urine Squamous Epithelial Cells Few <5 /hpf Urine Bacteria Few H None Seen /hpf Urine Mucus Few None Seen Urine Glucose 1+ H Normal mg/dL Microbiology Date/Time Source Procedure Growth Status 10/10/24 13:06 Blood Blood Culture - Preliminary NO GROWTH AFTER 72 HOURS OF INCUBATION. Resulted Assessment Impression: Acute hypoxic respiratory failure Dependence on supplemental oxygen Pulmonary nodule, 1 mm Hx of nicotine dependence Chronic cough Fever Pleural effusion Atelectasis Plan: CT chest: 1 cm LLL pulmonary nodule,likely reactive in setting of pneumonia. Lymphadenopathy likely reactive. Recommend repeat outpatient CT chest in 6-8 weeks for interval changes or PET CT scan. Supplemental oxygen 3 LPM NC Titrate to keep O2 sats above 92%. Taper O2 as tolerated. Continue antibiotics Incentive spirometry Follow up cultures Monitor renal function. Monitor electrolytes. Supplement as necessary. Monitor ins and outs. DVT prophylaxis. Prognosis: Poor given patient's multiple co-morbidities. Rest of plan per hospitalist and other consultants. Thank you, KB Fink, for allowing me to participate in this patient's care. Further recommendations will depend on the patient's clinical course. Please do not hesitate to contact me if you have any questions or concerns. This medical document was created using an electronic medical record system with [employer] computerized dictation system. Although these documentations are being carefully reviewed, there may still be some phonetic and typographical changes. The errors are purely typographical, due to imperfection on the software program, and do not reflect any compromise in the patient's medical care. Plan discussed with: Patient, Other (VIJAY Bhatti/KB Fink/) JERAMY CAMARA MD Oct 13, 2024 21:47
[2024-10-14] VITALS (8 sets, daily range): BP systolic 144–161; BP diastolic 79–92; PULSE 89–114; RESP 16–20; TEMP 97.5–99.3; O2SAT 92–98
--- NOTE | 2024-10-14 05:44 | DVH ---
EXAM: XY CHEST PORTABLE HISTORY: pna COMPARISON: Chest x-ray dated 10/10/2024, chest CT dated 10/10/2024. TECHNIQUE: Portable AP view of the chest was performed. FINDINGS: There is increased left lung base infiltrate and effusion partially obscuring the left hemidiaphragm. There is diffuse interstitial prominence, greater centrally. No pneumothorax. The heart is enlarg ed. IMPRESSION: 1. There is increased left lung base infiltrate and effusion which may be due to pneumonia and/or ate lectasis. 2. Cardiomegaly and prominence of the interstitial markings which may be due to CHF and/or reactive a irways disease.
[2024-10-14 07:11] LABS: Anion Gap 8 (5-15); Carbon Dioxide 22 mmol/L (20-31); Chloride 104 mmol/L (98-107); Potassium 4.2 mmol/L (3.5-5.1)
[2024-10-14 07:13] LABS: Basophils # (auto) 0 10 ^3/uL (0-0.2); Basophils % (auto) 0.2 % (0.0-2.0); Eosinophils # (auto) 0 10 ^3/uL (0-0.8); Eosinophils % (auto) 0.2 % (0.0-7.0); Hematocrit 29.5 % (41.0-53.0); Hemoglobin 9.8 g/dL (13.5-17.5); Lymphocytes # (auto) 0.5 10 ^3/uL (0.4-5.4); Lymphocytes % (auto) 8.1 % (10.0-50.0); Mean Corpuscular Hemoglobin 29.3 pg (28.0-32.0); Mean Corpuscular Hgb Conc. 33.1 g/dL (32.0-36.0); Mean Corpuscular Volume 88.6 fL (80.0-100.0); Monocytes # (auto) 1.1 10 ^3/uL (0-1.3); Monocytes % (auto) 17.3 % (0.0-12.0); Neutrophils # (auto) 4.7 10 ^3/uL (1.6-8.6); Neutrophils % (auto) 74.2 % (37.0-80.0); Nucleated Red Blood Cells % 0.1 %; Platelet Count (auto) 284 10^3/uL (140-450); Red Blood Cells 3.34 10^6/uL (4.5-5.90); Red Cell Distribution Width 13.6 % (11.8-14.3); White Blood Cell 6.4 10^3/uL (4.4-10.8)
[2024-10-14 07:16] LABS: Glucose 95 mg/dL (74-106)
[2024-10-14 07:24] LABS: Blood Urea Nitrogen 37 mg/dL (9-23); Calcium 8.4 mg/dL (8.7-10.4); Sodium 134 mmol/L (136-145)
--- NOTE | 2024-10-14 11:47 | DVHPN2 ---
Subjective Pt. reports cough. Reviewed: Care Plan, H&P, Labs, Medications Changes from previous H/P or p: No Changes General: Per HPI Objective Vitals Vital Signs Date Time Temp Pulse Resp B/P (MAP) Pulse Ox O2 Delivery O2 Flow Rate FiO2 10/14/24 08:52 98 Nasal Cannula* 3 32 10/14/24 08:51 98.4 98 16 145/92 (109) 98.4 Intake/Output Intake and Output 10/14/24 07:00 Intake Total 1800 ml Balance 1800 ml Intake Oral 800 ml IV Total 1000 ml # Voids 9 # Bowel Movements 1 General Appearance: Alert, Oriented X3, Cooperative, No acute distress HEENT: Atraumatic, PERRLA Lungs: Clear to auscultation, Normal air movement Cardiovascular: Normal S1, Normal S2 Abdomen: Normal bowel sounds, Soft, No tenderness Genitourinary: No Apparent Abnormalities Musculoskeletal: Normal sensory function, Normal motor function Neuro: Normal speech Skin: Dry, Intact Psych/Mental Status: Mental status NL Medications Current Medications Medications Dose Ordered Sig/Shavon Route Start Time Stop Time Status Last Admin Dose Admin Hydralazine HCl 10 mg Q6HP PRN IV 10/10/24 19:00 10/13/24 00:53 10 MG Ondansetron HCl 4 mg Q4HP PRN IV 10/10/24 19:00 Acetaminophen 650 mg Q6HP PRN PO 10/10/24 19:00 10/13/24 00:54 650 MG Nitroglycerin 0.4 mg Q5MINP PRN SL 10/10/24 19:00 Morphine Sulfate 2 mg Q30M PRN IV 10/10/24 19:00 Ceftriaxone Sodium 50 ml @ 100 mls/hr DAILY@09 IV 10/10/24 19:04 10/14/24 09:13 100 MLS/HR Albuterol 2.5 mg Q6HPRN PRN NEB 10/10/24 19:00 Aspirin 81 mg DAILY PO 10/12/24 10:00 10/14/24 09:12 81 MG Aspirin 81 mg DAILY PO 10/12/24 10:00 Cancel Atorvastatin Calcium 40 mg HS PO 10/11/24 22:00 10/13/24 22:27 40 MG Azithromycin 250 ml @ 125 mls/hr DAILY IV 10/12/24 10:00 10/13/24 15:12 125 MLS/HR Enoxaparin Sodium 90 mg Q12HR SC 10/12/24 11:45 10/13/24 22:27 90 MG Guaifenesin/ Codeine Phosphate 5 ml Q4HPRN PRN PO 10/13/24 14:30 10/14/24 03:26 5 ML Laboratory Results Laboratory Tests 10/14/24 05:54 Chemistry Test 10/14/24 05:54 Calcium Level 8.4 mg/dL (8.7-10.4) L Urinalysis Test 10/10/24 12:10 10/12/24 21:00 Urine Color Yellow (Yellow) Urine Clarity Turbid (Clear) H Urine pH 6.0 (5.0-9.0) Urine Specific [place] 1.023 (1.001-1.035) Urine Protein 3+ (Negative) H Urine Ketones 1+ (Negative) H Urine Blood 2+ /uL (Negative) H Urine Nitrite Negative (Negative) Urine Bilirubin Negative (Negative) Urine Urobilinogen Normal mg/dL (Negative) Urine Leukocyte Esterase Negative /uL (Negative) Urine RBC 6 /hpf (0 - 3) Urine Microscopic WBC 3 /HPF (0-3) Urine Squamous Epithelial Cells Few /hpf (<5) Urine Bacteria Few /hpf (None Seen) H Urine Mucus Few (None Seen) Urine Glucose 1+ mg/dL (Normal) H Urine Osmolality 438 mOsm/kg Urine Creatinine 96.58 mg/dL (30.0-125.0) Urine Sodium 49 mmol/L (40-220) Microbiology Microbiology Date/Time Source Procedure Growth Status 10/10/24 13:06 Blood Blood Culture - Preliminary NO GROWTH AFTER 72 HOURS OF INCUBATION. Resulted Labs and/or images reviewed: Labs reviewed by me, Image(s) reviewed by me Assessment/Plan Assessment/Plan Impression: -sepsis -community-acquired pneumonia, probable Gram-positive/Gram-negative etiology -NSTEMI, probable type 1 -diabetes mellitus -primary hypertension -dyslipidemia -probable CKD stage IIIB/4 -pulmonary nodule, 1 cm -history of nicotine dependence -acute hypoxic respiratory failure Plan: Events: no events overnight. Cough improved. Patient now afebrile. Chest x- ray reveals increasing opacity in the left lower lung. Patient denies worsening of dyspnea. -cardiology consultation: Clarified that the plan is for left heart catheterization on 10/15/2024 -Mucomyst p.o. times 48 hours -regular insulin sliding scale -antibiotic therapy: Rocephin, azithromycin -continue anticoagulation with Lovenox -continue Robitussin with codeine -continue aspirin and statin -stop IV fluids This medical document was created using an electronic medical record system with [employer] dictation system. Although this document has been carefully reviewed, there may still be some phonetic and typographical errors. These areas are purely typographical due to imperfections of the software programs, and do not reflect any compromise in the patient's medical care. Plan discussed with: Patient, Daughter, Other (RN) My Orders Orders - MARIA C DÍAZ NP Procedure Category Date Status Time Guaifenesin-Codeine PHA 10/13/24 In Process Liquid (Robitussin/C 14:30 Chest Portable XY 10/14/24 Resulted 04:00 *Consult CONS 10/13/24 Transmitted / 14:21 Date of Service: Oct 14, 2024 Billing Provider: MARIA C DÍAZ NP Common Visit Codes: [id number] INP/OBS CARE(HIGH) MARIA C DÍAZ NP Oct 14, 2024 11:47
--- NOTE | 2024-10-14 14:41 | DVHPN2 ---
Consult Progress Note Subjective Other Systems: Patient denies any cardiac symptoms at time of assessment. Objective vital signs Vital Sign Date Time Temp Pulse Resp B/P (MAP) Pulse Ox O2 Delivery O2 Flow Rate FiO2 10/14/24 08:52 98 Nasal Cannula* 3 32 10/14/24 08:51 98.4 98 16 145/92 (109) 98.4 Total Intake and Output 10/13/24 10/13/24 10/14/24 15:00 23:00 07:00 Intake Total 1800 ml Balance 1800 ml medications Current Medications Medications Dose Ordered Sig/Shavon Route Start Time Stop Time Status Last Admin Dose Admin Hydralazine HCl 10 mg Q6HP PRN IV 10/10/24 19:00 10/13/24 00:53 10 MG Ondansetron HCl 4 mg Q4HP PRN IV 10/10/24 19:00 Acetaminophen 650 mg Q6HP PRN PO 10/10/24 19:00 10/13/24 00:54 650 MG Nitroglycerin 0.4 mg Q5MINP PRN SL 10/10/24 19:00 Morphine Sulfate 2 mg Q30M PRN IV 10/10/24 19:00 Ceftriaxone Sodium 50 ml @ 100 mls/hr DAILY@09 IV 10/10/24 19:04 10/14/24 09:13 100 MLS/HR Albuterol 2.5 mg Q6HPRN PRN NEB 10/10/24 19:00 Aspirin 81 mg DAILY PO 10/12/24 10:00 10/14/24 09:12 81 MG Aspirin 81 mg DAILY PO 10/12/24 10:00 Cancel Atorvastatin Calcium 40 mg HS PO 10/11/24 22:00 10/13/24 22:27 40 MG Azithromycin 250 ml @ 125 mls/hr DAILY IV 10/12/24 10:00 10/14/24 12:37 125 MLS/HR Enoxaparin Sodium 90 mg Q12HR SC 10/12/24 11:45 10/14/24 12:36 90 MG Guaifenesin/ Codeine Phosphate 5 ml Q4HPRN PRN PO 10/13/24 14:30 10/14/24 12:36 5 ML Examination: GENERAL:Normal, LUNGS:Normal, CVS:Normal, NEURO:Normal laboratory and microbiology Laboratory Tests 10/14/24 05:54 Test 10/14/24 05:54 Range/Units Serum Glucose 95 74-106 mg/dL Problem List/Assessment/Plan Problem List/Assessment/Plan NSTEMI, rule out type I Chronic HFpEF, NYHA class II Paroxysmal atrial fibrillation, newly diagnosed Hypertension Hyperlipidemia Pneumonia Type 2 diabetes mellitus Obesity Plan/Recommendation (Dr. Kirkland): * Transthoracic echocardiogram reveals EF 50-55% with severe hypokinesis of the inferoposterior wall. Grade 2 diastolic dysfunction * Chest pain protocol * DANI score: 3 points * HEART score: 6 points * [id number] VASc score: 3 points (likely 4 points; pending angiogram) * Patient on therapeutic Lovenox; switch to NOAC when appropriate * Initiate low-dose beta-ena * Antiarrhythmic agent, amiodarone (400mg BID X 1 Week, then decrease to 200mg BID) * Gentle IV fluid hydration * Lipid-lowering agent * Antibiotics per primary care team * Nephrology consult and recommendations Patient seen and examined at bedside with . The patient denies any chest pain or cardiac symptoms at time of assessment. Patient noted to go into atrial fibrillation on ad operations associate as reviewed with MD Allen. Continue with IV hydration. Plan for coronary angiogram with improved creatinine tentatively on 10/15/24. Thank you for allowing us to care for this patient. Please call with any questions or concerns. This medical document was created using an electronic medical record system with voice recognition software and computerized dictation system. Although this document has been carefully reviewed, there might still be some phonetic and typographical errors. Occasional wrong-word or ``sound-alike substitutions may have occurred due to the inherent limitations of voice recognition software. These areas are purely typographical due to imperfections of the software programs and do not reflect any compromise in the patient's medical care. Please read the chart carefully and recognize, using context, where these substitutions have occurred. Plan discussed with: Patient, Spouse, Daughter Date of Service: Oct 14, 2024 Billing Provider: TESFAYE ORTIZ Common Visit Codes: [id number] INP/OBS CARE(HIGH) TESFAYE ORTIZ Oct 14, 2024 14:41
--- NOTE | 2024-10-14 17:58 | DVHPN2 ---
Progress Note Date Seen: Oct 14, 2024 Medical Necessity Reason Pt with a Central, PICC or Fol: No Subjective Patient reports: Feels better Objective vital signs Vital Sign Date Time Temp Pulse Resp B/P (MAP) Pulse Ox O2 Delivery O2 Flow Rate FiO2 10/14/24 17:00 99.3 90 20 144/79 (100) 98 99.3 10/14/24 08:52 Nasal Cannula* 3 32 Total Intake and Output 10/13/24 10/13/24 10/14/24 15:00 23:00 07:00 Intake Total 1800 ml Balance 1800 ml medications Current Medications Medications Dose Ordered Sig/Shavon Route Start Time Stop Time Status Last Admin Dose Admin Hydralazine HCl 10 mg Q6HP PRN IV 10/10/24 19:00 10/13/24 00:53 10 MG Ondansetron HCl 4 mg Q4HP PRN IV 10/10/24 19:00 Acetaminophen 650 mg Q6HP PRN PO 10/10/24 19:00 10/13/24 00:54 650 MG Nitroglycerin 0.4 mg Q5MINP PRN SL 10/10/24 19:00 Morphine Sulfate 2 mg Q30M PRN IV 10/10/24 19:00 Ceftriaxone Sodium 50 ml @ 100 mls/hr DAILY@09 IV 10/10/24 19:04 10/14/24 09:13 100 MLS/HR Albuterol 2.5 mg Q6HPRN PRN NEB 10/10/24 19:00 Aspirin 81 mg DAILY PO 10/12/24 10:00 10/14/24 09:12 81 MG Aspirin 81 mg DAILY PO 10/12/24 10:00 Cancel Atorvastatin Calcium 40 mg HS PO 10/11/24 22:00 10/13/24 22:27 40 MG Azithromycin 250 ml @ 125 mls/hr DAILY IV 10/12/24 10:00 10/14/24 12:37 125 MLS/HR Enoxaparin Sodium 90 mg Q12HR SC 10/12/24 11:45 10/14/24 12:36 90 MG Guaifenesin/ Codeine Phosphate 5 ml Q4HPRN PRN PO 10/13/24 14:30 10/14/24 17:56 5 ML Examination: GENERAL:Normal, CVS:Normal, ABDOMEN:Normal, SKIN:Normal laboratory and microbiology Laboratory Tests 10/14/24 05:54 Test 10/14/24 05:54 Range/Units Serum Glucose 95 74-106 mg/dL Microbiology Date/Time Source Procedure Growth Status 10/10/24 13:06 Blood Blood Culture - Preliminary NO GROWTH AFTER 72 HOURS OF INCUBATION. Resulted Problem List/Assessment/Plan Problem List/Assessment/Plan Acute kidney injury on chronic kidney disease stage 3 Prerenal disease FENA 1% Hypertension Non ST elevated myocardial infarction Diabetes Proteinuria Agree with gentle hydration to help excrete contrast dye Avoid hypotension Strict Is&Os monitor urinary output Cardiology consultation noted planned for possible cardiac catheterization in the next 2-3 days. Planned for left heart cath 10/15/24 recommend resume IVF in am Plan discussed with: Patient PRABHU ERNANDEZ MD Oct 14, 2024 17:58
[2024-10-14] MEDS: AMIODARONE HCL 200 MG TAB PO SCH (22:01)
[2024-10-14] MEDS: METOPROLOL TARTRATE 25 MG TAB PO SCH (22:08)
--- NOTE | 2024-10-14 23:02 | DVHPN2 ---
Progress Note - Dictate Date Seen: Oct 14, 2024 Medical Necessity Reason Pt with a Central, PICC or Fol: No Subjective Patient seen and examined at bedside. Remains on supplemental oxygen Overnight events reviewed. vital signs Vital Sign Date Time Temp Pulse Resp B/P (MAP) Pulse Ox O2 Delivery O2 Flow Rate FiO2 10/14/24 22:08 92 161/94 10/14/24 21:00 99.0 18 92 99.0 10/14/24 08:52 Nasal Cannula* 3 32 Total Intake and Output 10/13/24 10/13/24 10/14/24 15:00 23:00 07:00 Intake Total 1800 ml Balance 1800 ml medications Current Medications Medications Dose Ordered Sig/Shavon Route Start Time Stop Time Status Last Admin Dose Admin Hydralazine HCl 10 mg Q6HP PRN IV 10/10/24 19:00 10/13/24 00:53 10 MG Ondansetron HCl 4 mg Q4HP PRN IV 10/10/24 19:00 Acetaminophen 650 mg Q6HP PRN PO 10/10/24 19:00 10/13/24 00:54 650 MG Nitroglycerin 0.4 mg Q5MINP PRN SL 10/10/24 19:00 Morphine Sulfate 2 mg Q30M PRN IV 10/10/24 19:00 Ceftriaxone Sodium 50 ml @ 100 mls/hr DAILY@09 IV 10/10/24 19:04 10/14/24 09:13 100 MLS/HR Albuterol 2.5 mg Q6HPRN PRN NEB 10/10/24 19:00 Aspirin 81 mg DAILY PO 10/12/24 10:00 10/14/24 09:12 81 MG Aspirin 81 mg DAILY PO 10/12/24 10:00 Cancel Atorvastatin Calcium 40 mg HS PO 10/11/24 22:00 10/14/24 22:00 40 MG Azithromycin 250 ml @ 125 mls/hr DAILY IV 10/12/24 10:00 10/14/24 12:37 125 MLS/HR Enoxaparin Sodium 90 mg Q12HR SC 10/12/24 11:45 10/14/24 22:00 90 MG Guaifenesin/ Codeine Phosphate 5 ml Q4HPRN PRN PO 10/13/24 14:30 10/14/24 22:08 5 ML Metoprolol Tartrate 12.5 mg BID PO 10/14/24 22:00 10/14/24 22:08 12.5 MG Amiodarone HCl 400 mg Q12HR PO 10/14/24 22:00 10/14/24 22:01 400 MG objective Gen.: Patient lying in bed in no apparent distress. On supplemental oxygen. Head: Normocephalic, atraumatic. Eyes: EOMI/PERRLA. Ears: Normal hearing. Normal anatomy. Neck/trachea: Trachea midline, supple. Nose: Normal external anatomy. Mouth: Moist mucous membranes. Chest: Decreased air entry bilaterally. No wheezing or rhonchi. Cardiovascular: Positive S1, positive S2. Regular rate and rhythm. Abdomen: Positive bowel sounds in all 4 quadrants. Soft, non-tender, non- distended. : Deferred. Rectal: Deferred. Skin: Warm, dry. Intact. Extremities: 2+ radial pulses bilaterally. No lower extremity edema. Neuro: Awake, alert, oriented x3. No gross motor or sensory deficits. Cranial nerves II through XII intact. Gait not assessed. laboratory and microbiology Laboratory Tests 10/14/24 05:54 Test 10/14/24 05:54 Range/Units Serum Glucose 95 74-106 mg/dL Assessment/Plan Impression: Acute hypoxic respiratory failure Dependence on supplemental oxygen Pulmonary nodule, 1 mm Hx of nicotine dependence Chronic cough Fever Pleural effusion Atelectasis Events: Remains on supplemental oxygen, 3 LPM NC Taper O2 as tolerated CXR demonstrates LLL opacities, increased prominent interstitial markings. Continue bronchodilators Continue antibiotics Incentive spirometry Antitussive PRN cough Blood cultures show no growth x72 hours Amio PO for AFib, therapeutic Lovenox IV fluids with NS at 100 ml/hr. Monitor renal function - Cr trending down. Monitor electrolytes. Supplement as necessary. Monitor ins and outs. Labs and imaging reviewed. Rest of plan as noted below. Plan: CT chest: 1 cm LLL pulmonary nodule,likely reactive in setting of pneumonia. Lymphadenopathy likely reactive. Recommend repeat outpatient CT chest in 6-8 weeks for interval changes or PET CT scan. Supplemental oxygen Titrate to keep O2 sats above 92%. Continue antibiotics Incentive spirometry Follow up cultures Monitor renal function. Monitor electrolytes. Supplement as necessary. Monitor ins and outs. DVT prophylaxis. Prognosis: Poor given patient's multiple co-morbidities. Rest of plan per hospitalist and other consultants. Thank you, [employer] Salbino, for allowing me to participate in this patient's care. Further recommendations will depend on the patient's clinical course. Please do not hesitate to contact me if you have any questions or concerns. This medical document was created using an electronic medical record system with [employer] Alert dictation system. Although these documentations are being carefully reviewed, there may still be some phonetic and typographical changes. The errors are purely typographical, due to imperfection on the software program, and do not reflect any compromise in the patient's medical care. Plan discussed with: Patient, Other (RN) JERAMY CAMARA MD Oct 14, 2024 23:02
[2024-10-15] VITALS (15 sets, daily range): BP systolic 136–154; BP diastolic 75–88; PULSE 81–95; RESP 15–19; TEMP 98.2–98.4; O2SAT 90–99
[2024-10-15 02:29] LABS: Hematocrit 29.5 % (41.0-53.0); Hemoglobin 9.8 g/dL (13.5-17.5); Mean Corpuscular Hemoglobin 29.7 pg (28.0-32.0); Mean Corpuscular Hgb Conc. 33.2 g/dL (32.0-36.0); Mean Corpuscular Volume 89.2 fL (80.0-100.0); Platelet Count (auto) 283 10^3/uL (140-450); Red Cell Distribution Width 13.9 % (11.8-14.3); White Blood Cell 5.9 10^3/uL (4.4-10.8)
[2024-10-15 02:31] LABS: Basophils % (manual) 0 (0.0-2.0); Blast Cells 0; Eosinophils % (manual) 0 (0-7); Metamyelocytes % 0; Myelocytes % 0; Promyelocytes % 0; Reactive Lymphocytes 0
[2024-10-15 02:45] LABS: INR 1.16 (0.9-1.15); Partial Thromboplastin Time 38.7 SEC (24.5-34.5); Prothrombin Time 12.1 sec (9.3-11.8)
[2024-10-15 02:50] LABS: Chloride 104 mmol/L (98-107)
[2024-10-15 02:51] LABS: Anion Gap 6 (5-15); Calcium 8.7 mg/dL (8.7-10.4); Carbon Dioxide 24 mmol/L (20-31)
[2024-10-15 02:56] LABS: BUN/Creatinine Ratio 17.9 (10.0-20.0); Glucose 90 mg/dL (74-106)
[2024-10-15 03:19] LABS: Blood Urea Nitrogen 34 mg/dL (9-23); Sodium 134 mmol/L (136-145)
[2024-10-15 05:17] LABS: Band Neutrophils % (manual) 5; Lymphocytes % (manual) 10 (10.0-50.0); Monocytes % (manual) 13 (0-12); Platelet Estimate Adequate
[2024-10-15] MEDS: SODIUM CHLORIDE 0.9% 1,000 ML IV ONE (06:19)
[2024-10-15] MEDS: IODIXANOL 320MG/ML 100ML BTL IV ONE (08:07)
[2024-10-15] MEDS: fentaNYL CITRATE 100 MCG/2 ML VL ONE (09:13)
[2024-10-15] MEDS: HEPARIN SODIUM (PORCINE) 5000 UNITS/ML 1ML VIAL ONE (09:13)
[2024-10-15] MEDS: VERAPAMIL 2.5MG/ML INJ 2ML VIAL IV ONE (09:13)
[2024-10-15] MEDS: ANGIOMAX 250 MG VIAL IV ONE (09:13)
[2024-10-15] MEDS: MIDAZOLAM HCL 2MG/2ML 2ml VIAL (1mg/ml) ONE (09:14)
[2024-10-15] MEDS: SODIUM CHL 0.9% 0 ML ONE (09:14)
[2024-10-15] MEDS: LIDOCAINE 2%HCL (LOCAL ANESTH.) INJ 20ML MDV ONE (09:14)
--- NOTE | 2024-10-15 11:06 | DVHPN2 ---
Subjective Pt. reports cough. Reviewed: Care Plan, H&P, Labs, Medications Changes from previous H/P or p: No Changes General: Per HPI Objective Vitals Vital Signs Date Time Temp Pulse Resp B/P (MAP) Pulse Ox O2 Delivery O2 Flow Rate FiO2 10/15/24 10:15 84 19 142/88 (106) 92 10/15/24 09:00 98.3 98.3 10/15/24 01:11 Nasal Cannula* 3 32 Intake/Output Intake and Output 10/15/24 07:00 Intake Total 2780 ml Output Total 0 ml Balance 2780 ml Intake Oral 2380 ml IV Total 400 ml Stool Total 0 ml # Voids 10 Exam Patient was assessed in the cardiac catheterization lab recovery area. General Appearance: Alert, Oriented X3, Cooperative, No acute distress HEENT: Atraumatic, PERRLA Lungs: Clear to auscultation, Normal air movement Cardiovascular: Normal S1, Normal S2 Abdomen: Normal bowel sounds, Soft, No tenderness Genitourinary: No Apparent Abnormalities Musculoskeletal: Normal sensory function, Normal motor function Neuro: Normal speech Skin: Dry, Intact Psych/Mental Status: Mental status NL Medications Current Medications Medications Dose Ordered Sig/Shavon Route Start Time Stop Time Status Last Admin Dose Admin Hydralazine HCl 10 mg Q6HP PRN IV 10/10/24 19:00 10/13/24 00:53 10 MG Ondansetron HCl 4 mg Q4HP PRN IV 10/10/24 19:00 Acetaminophen 650 mg Q6HP PRN PO 10/10/24 19:00 10/13/24 00:54 650 MG Nitroglycerin 0.4 mg Q5MINP PRN SL 10/10/24 19:00 Morphine Sulfate 2 mg Q30M PRN IV 10/10/24 19:00 Ceftriaxone Sodium 50 ml @ 100 mls/hr DAILY@09 IV 10/10/24 19:04 10/14/24 09:13 100 MLS/HR Albuterol 2.5 mg Q6HPRN PRN NEB 10/10/24 19:00 Aspirin 81 mg DAILY PO 10/12/24 10:00 10/14/24 09:12 81 MG Aspirin 81 mg DAILY PO 10/12/24 10:00 Cancel Atorvastatin Calcium 40 mg HS PO 10/11/24 22:00 10/14/24 22:00 40 MG Azithromycin 250 ml @ 125 mls/hr DAILY IV 10/12/24 10:00 10/14/24 12:37 125 MLS/HR Guaifenesin/ Codeine Phosphate 5 ml Q4HPRN PRN PO 10/13/24 14:30 10/14/24 22:08 5 ML Metoprolol Tartrate 12.5 mg BID PO 10/14/24 22:00 10/14/24 22:08 12.5 MG Amiodarone HCl 400 mg Q12HR PO 10/14/24 22:00 10/14/24 22:01 400 MG Laboratory Results Laboratory Tests 10/15/24 02:20 Chemistry Test 10/15/24 02:20 Calcium Level 8.7 mg/dL (8.7-10.4) Coagulation Test 10/15/24 02:20 Prothrombin Time 12.1 sec (9.3-11.8) H Prothrombin Time INR 1.16 (0.9-1.15) H Activated Partial Thromboplast Time 38.7 SEC (24.5-34.5) H Urinalysis Test 10/10/24 12:10 10/12/24 21:00 Urine Color Yellow (Yellow) Urine Clarity Turbid (Clear) H Urine pH 6.0 (5.0-9.0) Urine Specific [place] 1.023 (1.001-1.035) Urine Protein 3+ (Negative) H Urine Ketones 1+ (Negative) H Urine Blood 2+ /uL (Negative) H Urine Nitrite Negative (Negative) Urine Bilirubin Negative (Negative) Urine Urobilinogen Normal mg/dL (Negative) Urine Leukocyte Esterase Negative /uL (Negative) Urine RBC 6 /hpf (0 - 3) Urine Microscopic WBC 3 /HPF (0-3) Urine Squamous Epithelial Cells Few /hpf (<5) Urine Bacteria Few /hpf (None Seen) H Urine Mucus Few (None Seen) Urine Glucose 1+ mg/dL (Normal) H Urine Osmolality 438 mOsm/kg Urine Creatinine 96.58 mg/dL (30.0-125.0) Urine Sodium 49 mmol/L (40-220) Microbiology Microbiology Date/Time Source Procedure Growth Status 10/10/24 13:06 Blood Blood Culture - Preliminary NO GROWTH AFTER 72 HOURS OF INCUBATION. Resulted Labs and/or images reviewed: Labs reviewed by me, Image(s) reviewed by me Assessment/Plan Assessment/Plan Impression: -sepsis -community-acquired pneumonia, probable Gram-positive/Gram-negative etiology -NSTEMI, type 1 -multivessel coronary artery disease -diabetes mellitus -primary hypertension -dyslipidemia -probable CKD stage IIIB/4 -pulmonary nodule, 1 cm -history of nicotine dependence -acute hypoxic respiratory failure Plan: Events: Patient assessed status post left heart catheterization. Found to have multivessel disease including LAD, diagonal, circumflex, RCA. Awaiting recommendations by Cardiology to see urgency of CABG consultation. This was discussed with the patient as well. Continue treatment for pneumonia. -continue gentle IV hydration given chronic kidney disease. -cardiology consultation: Recommendations appreciated -regular insulin sliding scale -antibiotic therapy: Rocephin, azithromycin -continue anticoagulation with Lovenox -continue Robitussin with codeine -continue aspirin and statin -Repeat BMP in am. This medical document was created using an electronic medical record system with [employer] dictation system. Although this document has been carefully reviewed, there may still be some phonetic and typographical errors. These areas are purely typographical due to imperfections of the software programs, and do not reflect any compromise in the patient's medical care. Plan discussed with: Patient, Other (RN) My Orders Orders - MARIA C DÍAZ NP Procedure Category Date Status Time Electrocardigram EKG 10/15/24 Logged 02:19 Date of Service: Oct 15, 2024 Billing Provider: MARIA C DÍAZ NP Common Visit Codes: [id number] INP/OBS CARE(HIGH) MARIA C DÍAZ NP Oct 15, 2024 11:06
[2024-10-15] MEDS: SODIUM CHLORIDE 0.9% 1,000 ML IV SCH (11:15)
--- NOTE | 2024-10-15 11:16 | ECG ---
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
--- NOTE | 2024-10-15 12:28 | DVHPN2 ---
Progress Note Date Seen: Oct 15, 2024 Medical Necessity Reason Pt with a Central, PICC or Fol: No Subjective Patient reports: Feels better Other Systems: sp cath Objective vital signs Vital Sign Date Time Temp Pulse Resp B/P (MAP) Pulse Ox O2 Delivery O2 Flow Rate FiO2 10/15/24 10:45 89 16 141/78 (99) 90 10/15/24 09:00 98.3 98.3 10/15/24 06:10 Nasal Cannula* 3 32 Total Intake and Output 10/14/24 10/14/24 10/15/24 15:00 23:00 07:00 Intake Total 340 ml 2340 ml 100 ml Output Total 0 ml Balance 340 ml 2340 ml 100 ml medications Current Medications Medications Dose Ordered Sig/Shavon Route Start Time Stop Time Status Last Admin Dose Admin Hydralazine HCl 10 mg Q6HP PRN IV 10/10/24 19:00 10/13/24 00:53 10 MG Ondansetron HCl 4 mg Q4HP PRN IV 10/10/24 19:00 Acetaminophen 650 mg Q6HP PRN PO 10/10/24 19:00 10/13/24 00:54 650 MG Nitroglycerin 0.4 mg Q5MINP PRN SL 10/10/24 19:00 Morphine Sulfate 2 mg Q30M PRN IV 10/10/24 19:00 Ceftriaxone Sodium 50 ml @ 100 mls/hr DAILY@09 IV 10/10/24 19:04 10/15/24 11:15 100 MLS/HR Albuterol 2.5 mg Q6HPRN PRN NEB 10/10/24 19:00 Aspirin 81 mg DAILY PO 10/12/24 10:00 10/15/24 11:15 81 MG Aspirin 81 mg DAILY PO 10/12/24 10:00 Cancel Atorvastatin Calcium 40 mg HS PO 10/11/24 22:00 10/14/24 22:00 40 MG Azithromycin 250 ml @ 125 mls/hr DAILY IV 10/12/24 10:00 10/15/24 11:30 125 MLS/HR Guaifenesin/ Codeine Phosphate 5 ml Q4HPRN PRN PO 10/13/24 14:30 10/14/24 22:08 5 ML Metoprolol Tartrate 12.5 mg BID PO 10/14/24 22:00 10/15/24 10:00 12.5 MG Amiodarone HCl 400 mg Q12HR PO 10/14/24 22:00 10/15/24 11:15 400 MG Sodium Chloride 1,000 ml @ 75 mls/hr [id number] IV 10/15/24 11:15 10/16/24 00:34 Examination: GENERAL:Abnormal, LUNGS:Abnormal, CVS:Abnormal, ABDOMEN:Abnormal laboratory and microbiology Laboratory Tests 10/15/24 02:20 Test 10/15/24 02:20 Range/Units Serum Glucose 90 74-106 mg/dL Microbiology Date/Time Source Procedure Growth Status 10/10/24 13:06 Blood Blood Culture - Preliminary NO GROWTH AFTER 72 HOURS OF INCUBATION. Resulted Problem List/Assessment/Plan Problem List/Assessment/Plan nstemi HTN HL CKD DM cath shows multivessel cad pt should be assessed for possible cabg vs staged pci if this is option needs CT surgery eval asa heparin/ lovenox statin very little contrast used during study Plan discussed with: Patient My Orders My Orders Orders - STEVE CARCAMO MD Procedure Category Date Status Time Cl Left Heart Cath CL 10/15/24 Taken 07:28 Post Cath Vital Signs DUGLAS 10/15/24 In Process Q 15min Post Cath Activity DUGLAS 10/15/24 In Process Protocol 09:48 Cardiac DIET 10/15/24 Transmitted Diet-2gna,Lofat,Lochol Lunch Communication Order ORDERS 10/15/24 Transmitted 09:48 Date of Service: Oct 15, 2024 Billing Provider: STEVE CARCAMO MD Common Visit Codes: NOT BILLABLE STEVE CARCAMO MD Oct 15, 2024 12:28
--- NOTE | 2024-10-15 12:38 | DVHOP2 ---
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 PREOPERATIVE DIAGNOSES: nstemi POSTOP DIAGNOSIS: 3v cad DESCRIPTION OF PROCEDURE: The patient or appropriate family signed informed consent understanding the risks, benefits and alternatives of the procedure, they wished to proceed. The patient was brought to the cardiac catheter finisher and inspector in n.p.o. state. The patient was prepped in a sterile fashion. Sedation was used per cardiac cath protocol. I administered 2 mL of 2% lidocaine to the right wrist. With an antegrade front wall puncture. I cannulated the right radial artery and placed a 6-Telugu Glidesheath slender. Next, an intra-arterial spasmolytic was administered. Next, a - 5 Tel[place] catheter and were used for coronary angiogram and LVEDP measurement and pressure pullback. At the completion of procedure, all guides and wires were removed, and there were no immediate complications. FINDINGS: RCA: Moderate vessel off the right sinus of Valsalva, there is a ruptured plaque in prox RCA showing 90% focal stenosis. its dominat vessel with mild distal disease giving off PDA and rPL distal RPL has a 70% stenosis very small vessel LEFT MAIN: Moderate size left main, it bifurcates into LAD and circumflex. no severe stenosis CIRCUMFLEX: Moderate caliber vessel coming off the left main . prox to mid CX has a long 90% stenosis. OM1 2 and 3 have diffuse small vessel disease. OM4 and 6 are targetable with ostial 80% stenosis LAD: LAD is a moderate caliber vessel coming of the left main. it has a 70-80% mid LAD stenosis that is tubular, distal LAD has a 70% stenosis, apical LAD has a good target CONCLUSIONS: 1. cabg vs pci consult PLAN: Aggressive risk factor modification and medical management for the patient. STEVE CARCAMO MD Oct 15, 2024 12:38
--- NOTE | 2024-10-15 14:03 | DVHPN2 ---
Progress Note Date Seen: Oct 15, 2024 Medical Necessity Reason Pt with a Central, PICC or Fol: No Subjective Patient reports: No new complaints (Patient family bedside, RN bedside), Feels better Review of Systems: HEENT:Normal, CVS:Normal, RESPIRATORY:Normal, GI:Normal, :Normal, MSK:Normal, NEURO:Normal Objective vital signs Vital Sign Date Time Temp Pulse Resp B/P (MAP) Pulse Ox O2 Delivery O2 Flow Rate FiO2 10/15/24 11:30 88 140/80 10/15/24 10:45 16 90 10/15/24 09:00 98.3 98.3 10/15/24 06:10 Nasal Cannula* 3 32 Total Intake and Output 10/14/24 10/14/24 10/15/24 15:00 23:00 07:00 Intake Total 340 ml 2340 ml 100 ml Output Total 0 ml Balance 340 ml 2340 ml 100 ml medications Current Medications Medications Dose Ordered Sig/Shavon Route Start Time Stop Time Status Last Admin Dose Admin Hydralazine HCl 10 mg Q6HP PRN IV 10/10/24 19:00 10/13/24 00:53 10 MG Ondansetron HCl 4 mg Q4HP PRN IV 10/10/24 19:00 Acetaminophen 650 mg Q6HP PRN PO 10/10/24 19:00 10/13/24 00:54 650 MG Nitroglycerin 0.4 mg Q5MINP PRN SL 10/10/24 19:00 Morphine Sulfate 2 mg Q30M PRN IV 10/10/24 19:00 Ceftriaxone Sodium 50 ml @ 100 mls/hr DAILY@09 IV 10/10/24 19:04 10/15/24 11:15 100 MLS/HR Albuterol 2.5 mg Q6HPRN PRN NEB 10/10/24 19:00 Aspirin 81 mg DAILY PO 10/12/24 10:00 10/15/24 11:15 81 MG Aspirin 81 mg DAILY PO 10/12/24 10:00 Cancel Atorvastatin Calcium 40 mg HS PO 10/11/24 22:00 10/14/24 22:00 40 MG Azithromycin 250 ml @ 125 mls/hr DAILY IV 10/12/24 10:00 10/15/24 11:30 125 MLS/HR Guaifenesin/ Codeine Phosphate 5 ml Q4HPRN PRN PO 10/13/24 14:30 10/14/24 22:08 5 ML Metoprolol Tartrate 12.5 mg BID PO 10/14/24 22:00 10/15/24 10:00 12.5 MG Amiodarone HCl 400 mg Q12HR PO 10/14/24 22:00 10/15/24 11:15 400 MG Sodium Chloride 1,000 ml @ 75 mls/hr [id number] IV 10/15/24 11:15 10/16/24 00:34 Examination: GENERAL:Normal, HEENT:Normal, NECK:Normal, LUNGS:Normal, CVS:Normal, ABDOMEN:Normal, MSK:Abnormal, SKIN:Normal, NEURO:Normal, :Normal laboratory and microbiology Laboratory Tests 10/15/24 02:20 Test 10/15/24 02:20 Range/Units Serum Glucose 90 74-106 mg/dL Microbiology Date/Time Source Procedure Growth Status 10/10/24 13:06 Blood Blood Culture - Final NO GROWTH AFTER 5 DAYS OF INCUBATION. Complete Problem List/Assessment/Plan Problem List/Assessment/Plan Acute kidney injury on chronic kidney disease stage 3 Prerenal disease FENA 1% Hypertension Non ST elevated myocardial infarction Diabetes Proteinuria Recommendations Agree with gentle hydration 1 L IV fluid normal saline and then stop Avoid hypotension Strict Is&Os monitor urinary output Cardiac catheterization today Plan for higher level of care CABG versus high-risk PCI noted Plan discussed with: Patient SHARON HUERTA MD Oct 15, 2024 14:03
[2024-10-16] VITALS (9 sets, daily range): BP systolic 124–145; BP diastolic 64–85; PULSE 70–106; RESP 17–19; TEMP 98.2–99; O2SAT 92–98
[2024-10-16 07:26] LABS: Anion Gap 10 (5-15); Carbon Dioxide 22 mmol/L (20-31); Chloride 102 mmol/L (98-107); Potassium 4.4 mmol/L (3.5-5.1)
[2024-10-16 07:32] LABS: BUN/Creatinine Ratio 18.3 (10.0-20.0); Glucose 106 mg/dL (74-106)
[2024-10-16 07:33] LABS: Blood Urea Nitrogen 31 mg/dL (9-23); Calcium 8.6 mg/dL (8.7-10.4); Sodium 134 mmol/L (136-145)
--- NOTE | 2024-10-16 09:15 | DVHPN2 ---
Consult Progress Note Date Seen: Oct 16, 2024 Subjective Review of Systems: CVS:Normal, RESPIRATORY:Normal, NEURO:Normal Other Systems: Denies any cardiac symptoms Objective vital signs Vital Sign Date Time Temp Pulse Resp B/P (MAP) Pulse Ox O2 Delivery O2 Flow Rate FiO2 10/16/24 05:00 98.8 91 18 145/69 (94) 95 98.8 10/15/24 22:45 Nasal Cannula 2.0 10/15/24 22:45 28 Total Intake and Output 10/15/24 10/15/24 10/16/24 15:00 23:00 07:00 Intake Total 480 ml 630 ml Output Total 0 ml 450 ml Balance 480 ml 630 ml -450 ml medications Current Medications Medications Dose Ordered Sig/Shavon Route Start Time Stop Time Status Last Admin Dose Admin Hydralazine HCl 10 mg Q6HP PRN IV 10/10/24 19:00 10/13/24 00:53 10 MG Ondansetron HCl 4 mg Q4HP PRN IV 10/10/24 19:00 Acetaminophen 650 mg Q6HP PRN PO 10/10/24 19:00 10/13/24 00:54 650 MG Nitroglycerin 0.4 mg Q5MINP PRN SL 10/10/24 19:00 Morphine Sulfate 2 mg Q30M PRN IV 10/10/24 19:00 Ceftriaxone Sodium 50 ml @ 100 mls/hr DAILY@09 IV 10/10/24 19:04 10/15/24 11:15 100 MLS/HR Albuterol 2.5 mg Q6HPRN PRN NEB 10/10/24 19:00 Aspirin 81 mg DAILY PO 10/12/24 10:00 10/15/24 11:15 81 MG Aspirin 81 mg DAILY PO 10/12/24 10:00 Cancel Atorvastatin Calcium 40 mg HS PO 10/11/24 22:00 10/15/24 22:32 40 MG Azithromycin 250 ml @ 125 mls/hr DAILY IV 10/12/24 10:00 10/15/24 11:30 125 MLS/HR Guaifenesin/ Codeine Phosphate 5 ml Q4HPRN PRN PO 10/13/24 14:30 10/15/24 22:33 5 ML Metoprolol Tartrate 12.5 mg BID PO 10/14/24 22:00 10/15/24 22:33 12.5 MG Amiodarone HCl 400 mg Q12HR PO 10/14/24 22:00 10/15/24 22:32 400 MG Examination: LUNGS:Normal, CVS:Normal (A-fib, controlled rate), NEURO:Normal laboratory and microbiology Laboratory Tests 10/16/24 05:52 10/15/24 02:20 Test 10/16/24 05:52 Range/Units Serum Glucose 106 74-106 mg/dL Problem List/Assessment/Plan Problem List/Assessment/Plan Non-ST elevation myocardial infarction with severe CAD Acute on chronic decompensated HFpEF, NYHA class II Paroxysmal atrial fibrillation, newly diagnosed Hypertension Hyperlipidemia Pneumonia Type 2 diabetes mellitus Obesity Plan/Recommendation (Dr. Sutton) * Transthoracic echocardiogram revealed EF 50-55% * Severe hypokinesis of the inferoposterior wall. Grade 2 diastolic dysfunction * Antiarrhythmic agent, transition to Flecainide therapy * Anticoagulation, initiate heparin drip per pharmacy protocol * [id number] VASc score: 4 points. Transition to DOAC when appropriate * Rate control, continue beta-ena * ASA and lipid-lowering agent, avoid Plavix * Nephrology consult and recommendations * Transfer to [facility] for CABG vs high-risk PCI Thank you for allowing us to care for this patient. Please call with any questions or concerns. This medical document was created using an electronic medical record system with voice recognition software and computerized dictation system. Although this document has been carefully reviewed, there might still be some phonetic and typographical errors. Occasional wrong-word or ``sound-alike substitutions may have occurred due to the inherent limitations of voice recognition software. These areas are purely typographical due to imperfections of the software programs and do not reflect any compromise in the patient's medical care. Please read the chart carefully and recognize, using context, where these substitutions have occurred. Plan discussed with: Patient, Other Date of Service: Oct 16, 2024 Billing Provider: YOU GARIBAY Cardiology Common Codes: [id number] YOU GARIBAY Oct 16, 2024 09:15
[2024-10-16 10:05] LABS: Hemoglobin 9.6 g/dL (13.5-17.5); Mean Corpuscular Hemoglobin 29.1 pg (28.0-32.0); Mean Corpuscular Hgb Conc. 33.1 g/dL (32.0-36.0); Mean Corpuscular Volume 87.9 fL (80.0-100.0); Platelet Count (auto) 297 10^3/uL (140-450); Red Cell Distribution Width 13.7 % (11.8-14.3); White Blood Cell 5.7 10^3/uL (4.4-10.8)
[2024-10-16 10:06] LABS: Basophils % (manual) 0 (0.0-2.0); Blast Cells 0; Eosinophils % (manual) 0 (0-7); Metamyelocytes % 0; Myelocytes % 0; Promyelocytes % 0; Reactive Lymphocytes 0
[2024-10-16 10:18] LABS: INR 1.14 (0.9-1.15); Partial Thromboplastin Time 33.9 SEC (24.5-34.5); Prothrombin Time 11.9 sec (9.3-11.8)
[2024-10-16] MEDS: FLECAINIDE ACETATE 50 MG TAB PO SCH (11:06)
[2024-10-16] MEDS: METOPROLOL SUCCINATE XL 50 MG TAB PO SCH (11:08)
[2024-10-16] MEDS ORDERED: POLYETHYLENE GLYCOL 17 GM PWDR PO PRN (11:15)
[2024-10-16] MEDS: POLYETHYLENE GLYCOL 17 GM PWDR PO ONE (11:15)
--- NOTE | 2024-10-16 11:18 | DVHDS2 ---
Discharge Summary Date of Admission Oct 10, 2024 at 18:46 Date of Discharge: Oct 16, 2024 Admitting Diagnosis NSTEMI Labs/Diagnostic Data: Laboratory Results Test 10/16/24 05:52 10/15/24 02:20 10/14/24 05:54 10/12/24 21:00 White Blood Count 5.7 10^3/uL (4.4-10.8) Red Blood Count 3.30 10^6/uL (4.5-5.90) Hemoglobin 9.6 g/dL (13.5-17.5) Hematocrit 29.0 % (41.0-53.0) Mean Corpuscular Volume 87.9 fL (80.0-100.0) Mean Corpuscular Hemoglobin 29.1 pg (28.0-32.0) Mean Corpuscular Hemoglobin Concent 33.1 g/dL (32.0-36.0) Red Cell Distribution Width 13.7 % (11.8-14.3) Platelet Count 297 10^3/uL (140-450) Mean Platelet Volume 10.4 fL (6.9-10.8) Neutrophils (%) (Auto) % (37.0-80.0) Lymphocytes (%) (Auto) % (10.0-50.0) Monocytes (%) (Auto) % (0.0-12.0) Basophils (%) (Auto) % (0.0-2.0) Neutrophils # (Auto) 10 ^3/uL (1.6-8.6) Lymphocytes # (Auto) 10 ^3/uL (0.4-5.4) Monocytes # (Auto) 10 ^3/uL (0-1.3) Prothrombin Time 11.9 sec (9.3-11.8) Prothrombin Time INR 1.14 (0.9-1.15) Activated Partial Thromboplast Time 33.9 SEC (24.5-34.5) Sodium Level 134 mmol/L (136-145) Potassium Level 4.4 mmol/L (3.5-5.1) Chloride Level 102 mmol/L (98-107) Carbon Dioxide Level 22 mmol/L (20-31) Anion Gap 10 (5-15) Blood Urea Nitrogen 31 mg/dL (9-23) Creatinine 1.69 mg/dL (0.700-1.30) Glomerular Filtration Rate Calc 46 mL/min (>90) BUN/Creatinine Ratio 18.3 (10.0-20.0) Serum Glucose 106 mg/dL (74-106) Calcium Level 8.6 mg/dL (8.7-10.4) B-Type Natriuretic Peptide 628.51 pg/mL (0-100) Eosinophils (%) (Auto) 0.2 % (0.0-7.0) Eosinophils # (Auto) 0 10 ^3/uL (0-0.8) Basophils # (Auto) 0 10 ^3/uL (0-0.2) Nucleated Red Blood Cells 0.1 % Urine Osmolality 438 mOsm/kg Urine Creatinine 96.58 mg/dL (30.0-125.0) Urine Sodium 49 mmol/L (40-220) Urine Opiates Screen Neg (NEGATIVE) Urine Fentanyl Screen Neg (NEGATIVE) Urine Barbiturates Screen Neg (NEGATIVE) Urine Phencyclidine Screen Neg (NEGATIVE) Urine Amphetamines Screen Neg (NEGATIVE) Urine Benzodiazepines Screen Neg (NEGATIVE) Urine Cocaine Screen Neg (NEGATIVE) Urine Cannabinoids Screen Neg (NEGATIVE) Test 10/12/24 04:05 10/11/24 16:01 10/11/24 06:54 10/11/24 06:40 Total Bilirubin 0.2 mg/dL (0.2-1.0) Aspartate Amino Transferase (AST) 44 U/L (13-40) Alanine Aminotransferase (ALT) 18 U/L (7-40) Alkaline Phosphatase 102 U/L (46-116) Total Protein 6.1 g/dL (5.7-8.2) Albumin 2.7 g/dL (3.2-4.8) Influenza Type A Antigen Negative (Negative) Influenza Type B Antigen Negative (Negative) SARS-CoV-2 Antigen (Rapid) Negative (NEGATIVE) Magnesium Level 2.0 mg/dL (1.6-2.6) Triglycerides Level 118 mg/dL (< 150) Cholesterol Level 151 mg/dL (< 200) LDL Cholesterol 108 mg/dL (< 100) HDL Cholesterol 27 mg/dL (40-59) Thyroid Stimulating Hormone (TSH) 1.07 uIU/mL (0.55-4.78) Hemoglobin A1c 6.6 % A1C (<5.7) Test 10/10/24 19:09 10/10/24 13:06 10/10/24 12:10 Troponin I High Sensitivity 11272 ng/L (</=54) D-Dimer, Quantitative 2.81 mg/L FEU (0.0-0.49) Lactic Acid Level 1.7 mmol/L (0.4-2.0) Urine Color Yellow (Yellow) Urine Clarity Turbid (Clear) Urine pH 6.0 (5.0-9.0) Urine Specific [place] 1.023 (1.001-1.035) Urine Protein 3+ (Negative) Urine Ketones 1+ (Negative) Urine Blood 2+ /uL (Negative) Urine Nitrite Negative (Negative) Urine Bilirubin Negative (Negative) Urine Urobilinogen Normal mg/dL (Negative) Urine Leukocyte Esterase Negative /uL (Negative) Urine RBC 6 /hpf (0 - 3) Urine Microscopic WBC 3 /HPF (0-3) Urine Squamous Epithelial Cells Few /hpf (<5) Urine Bacteria Few /hpf (None Seen) Urine Mucus Few (None Seen) Urine Glucose 1+ mg/dL (Normal) Other Laboratory Tests 10/16/24 05:52 Brief Hx & Hospital Course: History of Present Illness 59-year-old male presents for evaluation of like symptoms. Patient reports a two month history of shortness of breath with dizziness and a nonproductive cough. He also reports feeling chills intermittently. Denies chest pain or palpitations. No other acute complaints reported. Course of hospitalization: While in the emergency room the patient had CT angiogram of the chest to rule out pulmonary embolism which was negative. Patient did have progressively elevating troponin levels, for which cardiology consultation was obtained. Patient remained chest pain free. Chest x-ray did note questionable pneumonia to left lower lung as well as patient having shortness of breath and cough. Patient was started on antibiotic therapy with both Rocephin and azithromycin. Patient was started on gentle IV hydration given IV contrast with the patient have underlying chronic kidney disease. Nephrology consultation was placed. Patient underwent left heart catheterization yesterday, with the patient being found to have multivessel disease including circumflex, obtuse marginal vessels, lad, and circumflex artery. Recommendations are to transferred to higher level of care for CABG versus high-risk PCI. Patient continues to be asymptomatic. Renal function has improved. Long discussion was made with the patient's family were bedside. Patient agreeable to be transferred for cardiac intervention. Physical examination General: Alert and Oriented x3. No acute distress. Well-nourished. Eyes: EOMI. Anicteric. HENT: Moist mucous membranes. Lungs: Clear to auscultation bilaterally. No accessory muscle use. Cardiovascular: Regular rate and rhythm. No murmur. No JVD. Abdomen: Soft, non-tender and non-distended. No palpable masses. Extremities: No edema. Non-tender. Skin: No rashes or lesions. Warm. Neurologic: No focal neurological deficits. CN II-XII grossly intact, but not individually tested. Psychiatric: Cooperative. Appropriate mood and affect. Total time spent with patient discussing and formulating plan of care: 35 minutes. This medical document was created using an electronic medical record system with [employer] system. Although this document has been carefully reviewed, there may still be some phonetic and typographical errors. These areas are purely typographical due to imperfections of the software programs, and do not reflect any compromise in the patient's medical care. Consults/Reason for consult Cardiology: NSTEMI Nephrology: Chronic kidney disease stage IIIB Operations or Procedures 10/15/2024: Left heart catheterization Condition at Discharge: Fair Final Diagnosis/Problems List NSTEMI type 1 secondary to multivessel disease Secondary Diagnosis: -sepsis -community-acquired pneumonia, probable Gram-positive/Gram-negative etiology -NSTEMI, type 1 -multivessel coronary artery disease -diabetes mellitus -primary hypertension -dyslipidemia -probable CKD stage IIIB -pulmonary nodule, 1 cm -history of nicotine dependence -acute hypoxic respiratory failure Discharge Disposition: Acute Care Facility Discharge Instruct/Medications Diet: Consistent carbohydrate, Cardiac 2g Na,low cholest Activity: No Restrictions, As Tolerated Follow Up/Referral: Per accepting provider Medications: Refer to medication reconciliation form 36 Discharge Statement: "Patient was advised to return to the ER or call 911 if any headaches, dizziness, shortness of breath, chest pain, abdominal pain, bleeding, fevers, or worsening of medical condition. Patient was counseled about treatment plan, medications, possible side effects, patientverbalized understanding. All questions were answered to the best of my ability. This discharge took greater then 30 minutes in planning, reviewing documentation, counseling the patient, and discussing with other team members." ASSESSMENT ASSESSMENT Assessment NSTEMI type 1 secondary to multivessel disease Date of Service: Oct 16, 2024 Billing Provider: MARIA C DÍAZ NP Common Visit Codes: [id number] DISCH DAY >30min MARIA C DÍAZ NP Oct 16, 2024 11:17
--- NOTE | 2024-10-16 12:42 | DVHPN2 ---
Progress Note Date Seen: Oct 16, 2024 Medical Necessity Reason Pt with a Central, PICC or Fol: No Subjective Patient reports: Feels better Objective vital signs Vital Sign Date Time Temp Pulse Resp B/P (MAP) Pulse Ox O2 Delivery O2 Flow Rate FiO2 10/16/24 11:08 106 124/64 10/16/24 10:02 95 Nasal Cannula* 2 28 10/16/24 09:29 98.7 18 98.7 Total Intake and Output 10/15/24 10/15/24 10/16/24 15:00 23:00 07:00 Intake Total 480 ml 630 ml Output Total 0 ml 450 ml Balance 480 ml 630 ml -450 ml medications Current Medications Medications Dose Ordered Sig/Shavon Route Start Time Stop Time Status Last Admin Dose Admin Hydralazine HCl 10 mg Q6HP PRN IV 10/10/24 19:00 10/13/24 00:53 10 MG Ondansetron HCl 4 mg Q4HP PRN IV 10/10/24 19:00 Acetaminophen 650 mg Q6HP PRN PO 10/10/24 19:00 10/13/24 00:54 650 MG Nitroglycerin 0.4 mg Q5MINP PRN SL 10/10/24 19:00 Morphine Sulfate 2 mg Q30M PRN IV 10/10/24 19:00 Ceftriaxone Sodium 50 ml @ 100 mls/hr DAILY@09 IV 10/10/24 19:04 10/16/24 09:00 100 MLS/HR Albuterol 2.5 mg Q6HPRN PRN NEB 10/10/24 19:00 Aspirin 81 mg DAILY PO 10/12/24 10:00 10/16/24 11:06 81 MG Aspirin 81 mg DAILY PO 10/12/24 10:00 Cancel Atorvastatin Calcium 40 mg HS PO 10/11/24 22:00 10/15/24 22:32 40 MG Azithromycin 250 ml @ 125 mls/hr DAILY IV 10/12/24 10:00 10/16/24 10:00 125 MLS/HR Guaifenesin/ Codeine Phosphate 5 ml Q4HPRN PRN PO 10/13/24 14:30 10/16/24 11:14 5 ML Heparin Sodium/ Dextrose 250 ml @ 10 mls/hr Q24H IV 10/16/24 10:00 Flecainide Acetate 100 mg Q12HR PO 10/16/24 10:00 10/16/24 11:06 100 MG Metoprolol Succinate 25 mg DAILY PO 10/16/24 10:00 10/16/24 11:08 25 MG Polyethylene Glycol 17 gm DAILYPRN PRN PO 10/16/24 11:15 Examination: GENERAL:Abnormal, HEENT:Abnormal, LUNGS:Abnormal, CVS:Abnormal, ABDOMEN:Abnormal laboratory and microbiology Laboratory Tests 10/16/24 05:52 Test 10/16/24 05:52 Range/Units Serum Glucose 106 74-106 mg/dL Microbiology Date/Time Source Procedure Growth Status 10/10/24 13:06 Blood Blood Culture - Final NO GROWTH AFTER 5 DAYS OF INCUBATION. Complete Problem List/Assessment/Plan Problem List/Assessment/Plan nstemi HTN HL CKD DM cath shows multivessel cad pt should be assessed for possible cabg vs staged pci if this is option needs CT surgery eval asa heparin/ lovenox statin very little contrast used during study creat improves spoke to [facility] awaiting CTS eval for possible c abg Plan discussed with: Patient Date of Service: Oct 16, 2024 Billing Provider: STEVE CARCAMO MD Common Visit Codes: NOT BILLABLE STEVE CARCAMO MD Oct 16, 2024 12:42
[2024-10-16 12:48] LABS: Band Neutrophils % (manual) 5; Lymphocytes % (manual) 15 (10.0-50.0); Monocytes % (manual) 12 (0-12)
[2024-10-16 12:50] LABS: Platelet Estimate Adequate
[2024-10-16 15:46] LABS: INR 1.14 (0.9-1.15); Partial Thromboplastin Time 33.5 SEC (24.5-34.5); Prothrombin Time 11.9 sec (9.3-11.8)
[2024-10-16] MEDS: HEPARIN DRIP/D5W 100UNITS/ML 250 ML IV SCH (18:00)
--- NOTE | 2024-10-16 18:03 | DVHPN2 ---
Progress Note Date Seen: Oct 16, 2024 Medical Necessity Reason Pt with a Central, PICC or Fol: No Subjective Patient reports: No new complaints Review of Systems: Deferred Objective vital signs Vital Sign Date Time Temp Pulse Resp B/P (MAP) Pulse Ox O2 Delivery O2 Flow Rate FiO2 10/16/24 17:16 98.2 73 19 134/70 (91) 98 98.2 10/16/24 10:02 Nasal Cannula* 2 28 Total Intake and Output 10/15/24 10/15/24 10/16/24 14:59 22:59 06:59 Intake Total 580 ml 630 ml Output Total 0 ml 450 ml Balance 580 ml 630 ml -450 ml medications Current Medications Medications Dose Ordered Sig/Shavon Route Start Time Stop Time Status Last Admin Dose Admin Hydralazine HCl 10 mg Q6HP PRN IV 10/10/24 19:00 10/13/24 00:53 10 MG Ondansetron HCl 4 mg Q4HP PRN IV 10/10/24 19:00 Acetaminophen 650 mg Q6HP PRN PO 10/10/24 19:00 10/13/24 00:54 650 MG Nitroglycerin 0.4 mg Q5MINP PRN SL 10/10/24 19:00 Morphine Sulfate 2 mg Q30M PRN IV 10/10/24 19:00 Ceftriaxone Sodium 50 ml @ 100 mls/hr DAILY@09 IV 10/10/24 19:04 10/16/24 09:00 100 MLS/HR Albuterol 2.5 mg Q6HPRN PRN NEB 10/10/24 19:00 Cancel Aspirin 81 mg DAILY PO 10/12/24 10:00 10/16/24 11:06 81 MG Aspirin 81 mg DAILY PO 10/12/24 10:00 Cancel Atorvastatin Calcium 40 mg HS PO 10/11/24 22:00 10/15/24 22:32 40 MG Azithromycin 250 ml @ 125 mls/hr DAILY IV 10/12/24 10:00 10/16/24 10:00 125 MLS/HR Guaifenesin/ Codeine Phosphate 5 ml Q4HPRN PRN PO 10/13/24 14:30 10/16/24 11:14 5 ML Heparin Sodium/ Dextrose 250 ml @ 10 mls/hr Q24H IV 10/16/24 10:00 10/16/24 18:00 10 MLS/HR Flecainide Acetate 100 mg Q12HR PO 10/16/24 10:00 10/16/24 11:06 100 MG Metoprolol Succinate 25 mg DAILY PO 10/16/24 10:00 10/16/24 11:08 25 MG Polyethylene Glycol 17 gm DAILYPRN PRN PO 10/16/24 11:15 Examination: GENERAL:Normal, HEENT:Normal, NECK:Normal, LUNGS:Normal, CVS:Normal, ABDOMEN:Normal, MSK:Normal, SKIN:Normal, NEURO:Normal, :Normal laboratory and microbiology Laboratory Tests 10/16/24 05:52 Test 10/16/24 05:52 Range/Units Serum Glucose 106 74-106 mg/dL Microbiology Date/Time Source Procedure Growth Status 10/10/24 13:06 Blood Blood Culture - Final NO GROWTH AFTER 5 DAYS OF INCUBATION. Complete Problem List/Assessment/Plan Problem List/Assessment/Plan Acute kidney injury on chronic kidney disease stage 3 Prerenal disease FENA 1% Hypertension Non ST elevated myocardial infarction Diabetes Proteinuria Recommendations stable renal function Plan for higher level of care CABG versus high-risk PCI noted Plan discussed with: Patient SHARON HUERTA MD Oct 16, 2024 18:03
[2024-10-16 23:48] LABS: INR 1.12 (0.9-1.15); Partial Thromboplastin Time 31.3 SEC (24.5-34.5); Prothrombin Time 11.7 sec (9.3-11.8)
[2024-10-17] VITALS (8 sets, daily range): BP systolic 96–154; BP diastolic 62–87; PULSE 67–82; RESP 18–20; TEMP 98.1–98.9; O2SAT 90–96
[2024-10-17] MEDS: HEPARIN SODIUM (PORCINE) 5000 UNITS/ML 1ML VIAL IV ONE (00:50)
[2024-10-17] MEDS: HEPARIN DRIP/D5W 100UNITS/ML 250 ML IV SCH ×3 (00:52→18:09)
[2024-10-17 07:37] LABS: Basophils # (auto) 0 10 ^3/uL (0-0.2); Basophils % (auto) 0.2 % (0.0-2.0); Eosinophils # (auto) 0 10 ^3/uL (0-0.8); Eosinophils % (auto) 0.4 % (0.0-7.0); Hematocrit 32.4 % (41.0-53.0); Hemoglobin 10.7 g/dL (13.5-17.5); Lymphocytes # (auto) 0.5 10 ^3/uL (0.4-5.4); Lymphocytes % (auto) 9.1 % (10.0-50.0); Mean Corpuscular Hemoglobin 29.5 pg (28.0-32.0); Mean Corpuscular Hgb Conc. 33.1 g/dL (32.0-36.0); Neutrophils # (auto) 4.2 10 ^3/uL (1.6-8.6); Neutrophils % (auto) 73.3 % (37.0-80.0); Nucleated Red Blood Cells % 0.2 %; Platelet Count (auto) 344 10^3/uL (140-450); Red Blood Cells 3.64 10^6/uL (4.5-5.90); Red Cell Distribution Width 13.8 % (11.8-14.3); White Blood Cell 5.8 10^3/uL (4.4-10.8)
[2024-10-17 07:55] LABS: INR 1.15 (0.9-1.15); Partial Thromboplastin Time 37.6 SEC (24.5-34.5)
[2024-10-17] MEDS: METOPROLOL TARTRATE 25 MG TAB PO SCH (10:00)
[2024-10-17] MEDS ORDERED: LACTULOSE 20Gm/30ML SOLN PO PRN (10:15)
[2024-10-17 10:56] LABS: Chloride 100 mmol/L (98-107); Potassium 4.6 mmol/L (3.5-5.1)
[2024-10-17 10:57] LABS: Anion Gap 8 (5-15); Carbon Dioxide 23 mmol/L (20-31)
[2024-10-17] MEDS: LACTULOSE 20Gm/30ML SOLN PO ONE (10:57)
[2024-10-17 11:02] LABS: BUN/Creatinine Ratio 15.1 (10.0-20.0); Glucose 97 mg/dL (74-106)
--- NOTE | 2024-10-17 11:06 | DVHPN2 ---
Subjective Pt. reports cough. Reviewed: Care Plan, H&P, Labs, Medications Changes from previous H/P or p: No Changes General: Per HPI Objective Vitals Vital Signs Date Time Temp Pulse Resp B/P (MAP) Pulse Ox O2 Delivery O2 Flow Rate FiO2 10/17/24 08:58 67 118/57 10/17/24 08:55 98.9 18 92 98.9 10/16/24 20:00 Nasal Cannula* 3 32 Intake/Output Intake and Output 10/17/24 07:00 Intake Total 1200 ml Output Total 900 ml Balance 300 ml Intake Oral 1200 ml Output Urine Total 900 ml # Voids 6 Exam Patient was assessed in the cardiac catheterization lab recovery area. General Appearance: Alert, Oriented X3, Cooperative, No acute distress HEENT: Atraumatic, PERRLA Lungs: Clear to auscultation, Normal air movement Cardiovascular: Normal S1, Normal S2 Abdomen: Normal bowel sounds, Soft, No tenderness Genitourinary: No Apparent Abnormalities Musculoskeletal: Normal sensory function, Normal motor function Neuro: Normal speech Skin: Dry, Intact Psych/Mental Status: Mental status NL Medications Current Medications Medications Dose Ordered Sig/Shavon Route Start Time Stop Time Status Last Admin Dose Admin Hydralazine HCl 10 mg Q6HP PRN IV 10/10/24 19:00 10/13/24 00:53 10 MG Ondansetron HCl 4 mg Q4HP PRN IV 10/10/24 19:00 Acetaminophen 650 mg Q6HP PRN PO 10/10/24 19:00 10/13/24 00:54 650 MG Nitroglycerin 0.4 mg Q5MINP PRN SL 10/10/24 19:00 Morphine Sulfate 2 mg Q30M PRN IV 10/10/24 19:00 Ceftriaxone Sodium 50 ml @ 100 mls/hr DAILY@09 IV 10/10/24 19:04 10/17/24 08:57 100 MLS/HR Albuterol 2.5 mg Q6HPRN PRN NEB 10/10/24 19:00 Cancel Aspirin 81 mg DAILY PO 10/12/24 10:00 10/17/24 08:58 81 MG Aspirin 81 mg DAILY PO 10/12/24 10:00 Cancel Atorvastatin Calcium 40 mg HS PO 10/11/24 22:00 10/16/24 22:29 40 MG Azithromycin 250 ml @ 125 mls/hr DAILY IV 10/12/24 10:00 10/17/24 09:56 125 MLS/HR Guaifenesin/ Codeine Phosphate 5 ml Q4HPRN PRN PO 10/13/24 14:30 10/16/24 22:29 5 ML Flecainide Acetate 100 mg Q12HR PO 10/16/24 10:00 10/17/24 08:57 100 MG Polyethylene Glycol 17 gm DAILYPRN PRN PO 10/16/24 11:15 Heparin Sodium/ Dextrose 250 ml @ 15 mls/hr [id number] IV 10/17/24 09:30 10/17/24 10:12 15 MLS/HR Metoprolol Tartrate 12.5 mg BID PO 10/17/24 10:00 Lactulose 30 ml DAILYPRN PRN PO 10/17/24 10:15 Laboratory Results Chemistry Test 10/17/24 07:11 Calcium Level Pending Coagulation Test 10/16/24 15:04 10/16/24 23:08 10/17/24 07:11 Prothrombin Time 11.9 sec (9.3-11.8) H 11.7 sec (9.3-11.8) 12.0 sec (9.3-11.8) H Prothrombin Time INR 1.14 (0.9-1.15) 1.12 (0.9-1.15) 1.15 (0.9-1.15) Activated Partial Thromboplast Time 33.5 SEC (24.5-34.5) 31.3 SEC (24.5-34.5) 37.6 SEC (24.5-34.5) H Urinalysis Test 10/10/24 12:10 10/12/24 21:00 Urine Color Yellow (Yellow) Urine Clarity Turbid (Clear) H Urine pH 6.0 (5.0-9.0) Urine Specific [place] 1.023 (1.001-1.035) Urine Protein 3+ (Negative) H Urine Ketones 1+ (Negative) H Urine Blood 2+ /uL (Negative) H Urine Nitrite Negative (Negative) Urine Bilirubin Negative (Negative) Urine Urobilinogen Normal mg/dL (Negative) Urine Leukocyte Esterase Negative /uL (Negative) Urine RBC 6 /hpf (0 - 3) Urine Microscopic WBC 3 /HPF (0-3) Urine Squamous Epithelial Cells Few /hpf (<5) Urine Bacteria Few /hpf (None Seen) H Urine Mucus Few (None Seen) Urine Glucose 1+ mg/dL (Normal) H Urine Osmolality 438 mOsm/kg Urine Creatinine 96.58 mg/dL (30.0-125.0) Urine Sodium 49 mmol/L (40-220) Microbiology Microbiology Date/Time Source Procedure Growth Status 10/10/24 13:06 Blood Blood Culture - Final NO GROWTH AFTER 5 DAYS OF INCUBATION. Complete Labs and/or images reviewed: Labs reviewed by me, Image(s) reviewed by me Assessment/Plan Assessment/Plan Impression: -sepsis -community-acquired pneumonia, probable Gram-positive/Gram-negative etiology -NSTEMI, type 1 -multivessel coronary artery disease -diabetes mellitus -primary hypertension -dyslipidemia -probable CKD stage IIIB/4 -pulmonary nodule, 1 cm -history of nicotine dependence -acute hypoxic respiratory failure Plan: Events: Patient has been accepted to [facility] for high-risk PCI versus CABG. Renal function improving. Patient weaned off of oxygen. Currently chest pain free -continue IV antibiotics. Stop IV fluids -cardiology consultation: Recommendations appreciated -regular insulin sliding scale -antibiotic therapy: Rocephin, azithromycin -continue anticoagulation with heparin drip -continue Robitussin with codeine -continue aspirin and statin, add beta ena given patient has hypertension and no signs of heart block. Total time spent with patient discussing and formulating plan of care: 35 minutes. This medical document was created using an electronic medical record system with [employer] dictation system. Although this document has been carefully reviewed, there may still be some phonetic and typographical errors. These areas are purely typographical due to imperfections of the software programs, and do not reflect any compromise in the patient's medical care. Plan discussed with: Patient, Daughter, Other (RN) My Orders Orders - MARIA C DÍAZ CUSTOMER PROFESSIONAL Procedure Category Date Status Time Polyethylene Glycol PHA 10/16/24 In Process 17g Powder (Miralax 11:15 Discharge DISCHARGE 10/16/24 Transmitted 11:09 Metoprolol Tartrate PHA 10/17/24 In Process Tablet (Lopressor Ta 10:00 Basic Metabolic Panel LAB 10/17/24 In Process 09:51 Complete Blood Count LAB 10/17/24 In Process 09:51 Chest Xray 1 View XY 10/17/24 Taken 09:51 Lactulose Oral PHA 10/17/24 In Process 10:15 Date of Service: Oct 17, 2024 Billing Provider: MARIA C DÍAZ NP Common Visit Codes: [id number] INP/OBS CARE(HIGH) MARIA C DÍAZ NP Oct 17, 2024 11:06
[2024-10-17 11:09] LABS: Blood Urea Nitrogen 30 mg/dL (9-23); Sodium 131 mmol/L (136-145)
--- NOTE | 2024-10-17 11:24 | DVH ---
EXAM: XY CHEST XRAY 1 VIEW Indication: pna Technique: Single frontal view of the chest was obtained Comparison: XY CHEST PORTABLE on DOS: 10/14/24 FINDINGS: Lines and Tubes: None Lungs: Diffuse interstitial opacities. Pleura: No effusion. No pneumothorax. Cardiomediastinal contours: Cardiomegaly. Bones: No acute osseous abnormality. IMPRESSION: No significant change compared to prior exam.
[2024-10-17 12:35] LABS: Hematocrit 29.7 % (41.0-53.0); Hemoglobin 9.9 g/dL (13.5-17.5); Mean Corpuscular Hemoglobin 29.4 pg (28.0-32.0); Mean Corpuscular Hgb Conc. 33.4 g/dL (32.0-36.0); Mean Corpuscular Volume 88.2 fL (80.0-100.0); Platelet Count (auto) 309 10^3/uL (140-450); Red Blood Cells 3.36 10^6/uL (4.5-5.90); Red Cell Distribution Width 14.1 % (11.8-14.3); White Blood Cell 6.4 10^3/uL (4.4-10.8)
[2024-10-17 12:38] LABS: Band Neutrophils % (manual) 0; Basophils % (manual) 0 (0.0-2.0); Blast Cells 0; Metamyelocytes % 0; Myelocytes % 0; Promyelocytes % 0; Reactive Lymphocytes 0
--- NOTE | 2024-10-17 12:53 | DVHPN2 ---
Consult Progress Note Date Seen: Oct 17, 2024 Subjective Review of Systems: CVS:Normal, RESPIRATORY:Normal, NEURO:Normal Objective vital signs Vital Sign Date Time Temp Pulse Resp B/P (MAP) Pulse Ox O2 Delivery O2 Flow Rate FiO2 10/17/24 08:58 67 118/57 10/17/24 08:55 98.9 18 92 98.9 10/17/24 08:00 Nasal Cannula* 3 32 Total Intake and Output 10/16/24 10/16/24 10/17/24 15:00 23:00 07:00 Intake Total 400 ml 800 ml Output Total 900 ml Balance 400 ml -100 ml medications Current Medications Medications Dose Ordered Sig/Shavon Route Start Time Stop Time Status Last Admin Dose Admin Hydralazine HCl 10 mg Q6HP PRN IV 10/10/24 19:00 10/13/24 00:53 10 MG Ondansetron HCl 4 mg Q4HP PRN IV 10/10/24 19:00 Acetaminophen 650 mg Q6HP PRN PO 10/10/24 19:00 10/13/24 00:54 650 MG Nitroglycerin 0.4 mg Q5MINP PRN SL 10/10/24 19:00 Morphine Sulfate 2 mg Q30M PRN IV 10/10/24 19:00 Ceftriaxone Sodium 50 ml @ 100 mls/hr DAILY@09 IV 10/10/24 19:04 10/17/24 08:57 100 MLS/HR Albuterol 2.5 mg Q6HPRN PRN NEB 10/10/24 19:00 Cancel Aspirin 81 mg DAILY PO 10/12/24 10:00 10/17/24 08:58 81 MG Aspirin 81 mg DAILY PO 10/12/24 10:00 Cancel Atorvastatin Calcium 40 mg HS PO 10/11/24 22:00 10/16/24 22:29 40 MG Azithromycin 250 ml @ 125 mls/hr DAILY IV 10/12/24 10:00 10/17/24 09:56 125 MLS/HR Guaifenesin/ Codeine Phosphate 5 ml Q4HPRN PRN PO 10/13/24 14:30 10/16/24 22:29 5 ML Flecainide Acetate 100 mg Q12HR PO 10/16/24 10:00 10/17/24 08:57 100 MG Polyethylene Glycol 17 gm DAILYPRN PRN PO 10/16/24 11:15 Heparin Sodium/ Dextrose 250 ml @ 15 mls/hr [id number] IV 10/17/24 09:30 10/17/24 10:12 15 MLS/HR Metoprolol Tartrate 12.5 mg BID PO 10/17/24 10:00 Lactulose 30 ml DAILYPRN PRN PO 10/17/24 10:15 Examination: LUNGS:Normal, CVS:Normal, NEURO:Normal laboratory and microbiology Laboratory Tests 10/17/24 11:54 10/17/24 07:11 Test 10/17/24 07:11 Range/Units Serum Glucose 97 74-106 mg/dL Problem List/Assessment/Plan Problem List/Assessment/Plan Non-ST elevation myocardial infarction with severe multivessel disease Acute on chronic decompensated HFpEF, NYHA class II Paroxysmal atrial fibrillation, newly diagnosed Hypertension Hyperlipidemia Pneumonia Type 2 diabetes mellitus Obesity Plan/Recommendation (Dr. Sutton) * Transthoracic echocardiogram revealed EF 50-55% * Severe hypokinesis of the inferoposterior wall. Grade 2 diastolic dysfunction * Antiarrhythmic agent, transition to Flecainide therapy * Anticoagulation, heparin drip per pharmacy protocol * [id number] VASc score: 4 points. Transition to DOAC when appropriate * Rate control, continue beta-ena * ASA and lipid-lowering agent, avoid Plavix * Nephrology consult and recommendations * Transfer to [facility] for CABG vs high-risk PCI * Accepted to [facility], awaiting bed assignment We will sign off at this time. Kindly call if in need to re-consult. Thank you for allowing us to care for this patient. This medical document was created using an electronic medical record system with voice recognition software and computerized dictation system. Although this document has been carefully reviewed, there might still be some phonetic and typographical errors. Occasional wrong-word or ``sound-alike substitutions may have occurred due to the inherent limitations of voice recognition software. These areas are purely typographical due to imperfections of the software programs and do not reflect any compromise in the patient's medical care. Please read the chart carefully and recognize, using context, where these substitutions have occurred. Plan discussed with: Patient, Spouse, Daughter, Other Date of Service: Oct 17, 2024 Billing Provider: YOU GARIBAY Cardiology Common Codes: [id number] YOU GARIBAY Oct 17, 2024 12:52
[2024-10-17 15:19] LABS: Eosinophils % (manual) 1 (0-7); Lymphocytes % (manual) 11 (10.0-50.0); Monocytes % (manual) 24 (0-12); Platelet Estimate Adequate
--- NOTE | 2024-10-17 17:05 | DVHPN2 ---
Progress Note Date Seen: Oct 17, 2024 Medical Necessity Reason Pt with a Central, PICC or Fol: No Subjective Patient reports: Other (No new complaints family bedside) Review of Systems: HEENT:Normal, CVS:Normal, RESPIRATORY:Normal, GI:Normal, :Normal, MSK:Normal, NEURO:Normal Objective vital signs Vital Sign Date Time Temp Pulse Resp B/P (MAP) Pulse Ox O2 Delivery O2 Flow Rate FiO2 10/17/24 12:57 98.3 67 18 96/62 (73) 92 98.3 10/17/24 08:00 Nasal Cannula* 3 32 Total Intake and Output 10/16/24 10/16/24 10/17/24 15:00 23:00 07:00 Intake Total 400 ml 800 ml Output Total 900 ml Balance 400 ml -100 ml medications Current Medications Medications Dose Ordered Sig/Shavon Route Start Time Stop Time Status Last Admin Dose Admin Hydralazine HCl 10 mg Q6HP PRN IV 10/10/24 19:00 10/13/24 00:53 10 MG Ondansetron HCl 4 mg Q4HP PRN IV 10/10/24 19:00 Acetaminophen 650 mg Q6HP PRN PO 10/10/24 19:00 10/13/24 00:54 650 MG Nitroglycerin 0.4 mg Q5MINP PRN SL 10/10/24 19:00 Morphine Sulfate 2 mg Q30M PRN IV 10/10/24 19:00 Ceftriaxone Sodium 50 ml @ 100 mls/hr DAILY@09 IV 10/10/24 19:04 10/17/24 08:57 100 MLS/HR Albuterol 2.5 mg Q6HPRN PRN NEB 10/10/24 19:00 Cancel Aspirin 81 mg DAILY PO 10/12/24 10:00 10/17/24 08:58 81 MG Aspirin 81 mg DAILY PO 10/12/24 10:00 Cancel Atorvastatin Calcium 40 mg HS PO 10/11/24 22:00 10/16/24 22:29 40 MG Azithromycin 250 ml @ 125 mls/hr DAILY IV 10/12/24 10:00 10/17/24 09:56 125 MLS/HR Guaifenesin/ Codeine Phosphate 5 ml Q4HPRN PRN PO 10/13/24 14:30 10/17/24 16:23 5 ML Flecainide Acetate 100 mg Q12HR PO 10/16/24 10:00 10/17/24 08:57 100 MG Polyethylene Glycol 17 gm DAILYPRN PRN PO 10/16/24 11:15 Heparin Sodium/ Dextrose 250 ml @ 15 mls/hr [id number] IV 10/17/24 09:30 10/17/24 10:12 15 MLS/HR Metoprolol Tartrate 12.5 mg BID PO 10/17/24 10:00 Lactulose 30 ml DAILYPRN PRN PO 10/17/24 10:15 Examination: GENERAL:Normal, HEENT:Normal, NECK:Normal, LUNGS:Normal, CVS:Normal, ABDOMEN:Normal, MSK:Normal, SKIN:Normal, NEURO:Normal, :Normal laboratory and microbiology Laboratory Tests 10/17/24 11:54 10/17/24 07:11 Test 10/17/24 07:11 Range/Units Serum Glucose 97 74-106 mg/dL Microbiology Date/Time Source Procedure Growth Status 10/10/24 13:06 Blood Blood Culture - Final NO GROWTH AFTER 5 DAYS OF INCUBATION. Complete Problem List/Assessment/Plan Problem List/Assessment/Plan Acute kidney injury on chronic kidney disease stage 3B likely hemodynamic mediated + contrast Prerenal disease FENA 1% Hypertension Non ST elevated myocardial infarction Severe coronary artery disease status post catheterization plus CT angiogram IV contrast noted Diabetes Proteinuria Recommendations Hypoxic events noted Chest x-ray noted--gentle Lasix as ordered stable renal function Plan for higher level of care CABG versus high-risk PCI noted Plan discussed with: Patient My Orders My Orders Orders - SHARON HUERTA MD Procedure Category Date Status Time NS PHA 10/17/24 Verified 17:15 SHARON HUERTA MD Oct 17, 2024 17:05
[2024-10-17] MEDS ORDERED: SODIUM CHLORIDE 0.9% 1,000 ML IV ONE (17:15)
[2024-10-17 17:18] LABS: INR 1.14 (0.9-1.15); Partial Thromboplastin Time 44.1 SEC (24.5-34.5); Prothrombin Time 11.9 sec (9.3-11.8)
[2024-10-17] MEDS: FUROSEMIDE 40 MG/4 ML VIAL IV ONE (18:01)
[2024-10-18] VITALS (8 sets, daily range): BP systolic 112–153; BP diastolic 51–83; PULSE 67–91; RESP 18–19; TEMP 97.9–98.4; O2SAT 94–98
[2024-10-18 00:56] LABS: INR 1.15 (0.9-1.15); Partial Thromboplastin Time 46.7 SEC (24.5-34.5)
[2024-10-18] MEDS: HEPARIN DRIP/D5W 100UNITS/ML 250 ML IV SCH ×3 (01:43→14:15)
[2024-10-18 07:48] LABS: INR 1.17 (0.9-1.15); Partial Thromboplastin Time 66.4 SEC (24.5-34.5); Prothrombin Time 12.2 sec (9.3-11.8)
[2024-10-18] MEDS: FUROSEMIDE 20 MG/2 ML VIAL IV SCH (08:48)
[2024-10-18 09:25] LABS: Hematocrit 27.9 % (41.0-53.0); Hemoglobin 9.5 g/dL (13.5-17.5); Mean Corpuscular Hemoglobin 29.7 pg (28.0-32.0); Mean Corpuscular Hgb Conc. 34.1 g/dL (32.0-36.0); Mean Corpuscular Volume 87.2 fL (80.0-100.0); Platelet Count (auto) 292 10^3/uL (140-450); White Blood Cell 5.6 10^3/uL (4.4-10.8)
[2024-10-18 09:27] LABS: Basophils % (manual) 0 (0.0-2.0); Blast Cells 0; Metamyelocytes % 0; Myelocytes % 0; Promyelocytes % 0; Reactive Lymphocytes 0
[2024-10-18 11:04] LABS: Band Neutrophils % (manual) 3; Eosinophils % (manual) 1 (0-7); Lymphocytes % (manual) 8 (10.0-50.0); Monocytes % (manual) 21 (0-12); Platelet Estimate Adequate
[2024-10-18 11:05] LABS: RBC Morphology Normal
--- NOTE | 2024-10-18 11:17 | DVHPN2 ---
Subjective Pt. reports cough. Reviewed: Care Plan, H&P, Labs, Medications Changes from previous H/P or p: No Changes General: Per HPI Objective Vitals Vital Signs Date Time Temp Pulse Resp B/P (MAP) Pulse Ox O2 Delivery O2 Flow Rate FiO2 10/18/24 09:00 97.9 74 18 153/83 (106) 97 97.9 10/17/24 20:00 Nasal Cannula* 3 32 Intake/Output Intake and Output 10/18/24 07:00 Intake Total 2013 ml Balance 2013 ml Intake Oral 1500 ml IV Total 514 ml # Voids 9 # Bowel Movements 6 Exam Patient was assessed in the cardiac catheterization lab recovery area. General Appearance: Alert, Oriented X3, Cooperative, No acute distress HEENT: Atraumatic, PERRLA Lungs: Clear to auscultation, Normal air movement Cardiovascular: Normal S1, Normal S2 Abdomen: Normal bowel sounds, Soft, No tenderness Genitourinary: No Apparent Abnormalities Musculoskeletal: Normal sensory function, Normal motor function Neuro: Normal speech Skin: Dry, Intact Psych/Mental Status: Mental status NL Medications Current Medications Medications Dose Ordered Sig/Shavon Route Start Time Stop Time Status Last Admin Dose Admin Hydralazine HCl 10 mg Q6HP PRN IV 10/10/24 19:00 10/13/24 00:53 10 MG Ondansetron HCl 4 mg Q4HP PRN IV 10/10/24 19:00 Acetaminophen 650 mg Q6HP PRN PO 10/10/24 19:00 10/13/24 00:54 650 MG Nitroglycerin 0.4 mg Q5MINP PRN SL 10/10/24 19:00 Morphine Sulfate 2 mg Q30M PRN IV 10/10/24 19:00 Ceftriaxone Sodium 50 ml @ 100 mls/hr DAILY@09 IV 10/10/24 19:04 10/18/24 08:38 100 MLS/HR Albuterol 2.5 mg Q6HPRN PRN NEB 10/10/24 19:00 Cancel Aspirin 81 mg DAILY PO 10/12/24 10:00 10/18/24 08:36 81 MG Aspirin 81 mg DAILY PO 10/12/24 10:00 Cancel Atorvastatin Calcium 40 mg HS PO 10/11/24 22:00 10/17/24 21:42 40 MG Azithromycin 250 ml @ 125 mls/hr DAILY IV 10/12/24 10:00 2/6/25 10:15 125 MLS/HR Guaifenesin/ Codeine Phosphate 5 ml Q4HPRN PRN PO 10/13/24 14:30 10/17/24 21:51 5 ML Flecainide Acetate 100 mg Q12HR PO 10/16/24 10:00 10/18/24 09:11 100 MG Polyethylene Glycol 17 gm DAILYPRN PRN PO 10/16/24 11:15 Metoprolol Tartrate 12.5 mg BID PO 10/17/24 10:00 10/18/24 08:37 12.5 MG Lactulose 30 ml DAILYPRN PRN PO 10/17/24 10:15 Furosemide 20 mg DAILY IV 10/18/24 10:00 10/18/24 08:48 20 MG Heparin Sodium/ Dextrose 250 ml @ 19 mls/hr [id number] IV 10/18/24 01:30 10/18/24 08:36 19 MLS/HR Laboratory Results Laboratory Tests 10/17/24 07:11 10/18/24 07:05 Coagulation Test 10/17/24 16:43 10/18/24 00:27 10/18/24 07:05 Prothrombin Time 11.9 sec (9.3-11.8) H 12.0 sec (9.3-11.8) H 12.2 sec (9.3-11.8) H Prothrombin Time INR 1.14 (0.9-1.15) 1.15 (0.9-1.15) 1.17 (0.9-1.15) H Activated Partial Thromboplast Time 44.1 SEC (24.5-34.5) H 46.7 SEC (24.5-34.5) H 66.4 SEC (24.5-34.5) H Urinalysis Test 10/10/24 12:10 10/12/24 21:00 Urine Color Yellow (Yellow) Urine Clarity Turbid (Clear) H Urine pH 6.0 (5.0-9.0) Urine Specific [place] 1.023 (1.001-1.035) Urine Protein 3+ (Negative) H Urine Ketones 1+ (Negative) H Urine Blood 2+ /uL (Negative) H Urine Nitrite Negative (Negative) Urine Bilirubin Negative (Negative) Urine Urobilinogen Normal mg/dL (Negative) Urine Leukocyte Esterase Negative /uL (Negative) Urine RBC 6 /hpf (0 - 3) Urine Microscopic WBC 3 /HPF (0-3) Urine Squamous Epithelial Cells Few /hpf (<5) Urine Bacteria Few /hpf (None Seen) H Urine Mucus Few (None Seen) Urine Glucose 1+ mg/dL (Normal) H Urine Osmolality 438 mOsm/kg Urine Creatinine 96.58 mg/dL (30.0-125.0) Urine Sodium 49 mmol/L (40-220) Microbiology Microbiology Date/Time Source Procedure Growth Status 10/10/24 13:06 Blood Blood Culture - Final NO GROWTH AFTER 5 DAYS OF INCUBATION. Complete Labs and/or images reviewed: Labs reviewed by me, Image(s) reviewed by me Assessment/Plan Assessment/Plan Impression: -sepsis -community-acquired pneumonia, probable Gram-positive/Gram-negative etiology -NSTEMI, type 1 -multivessel coronary artery disease -diabetes mellitus -primary hypertension -dyslipidemia -probable CKD stage IIIB/4 -pulmonary nodule, 1 cm -history of nicotine dependence -acute hypoxic respiratory failure Plan: Events: Continues to be holding for bed at [facility]. Given prolonged wait for transfer, we will switch heparin drip to enoxaparin injection at 8:00 p.m. this evening. -continue Rocephin. Stop azithromycin given full course provided. -cardiology consultation: Recommendations appreciated -regular insulin sliding scale -antibiotic therapy: Rocephin, azithromycin -continue Robitussin with codeine -continue aspirin and statin, add beta ena given patient has hypertension and no signs of heart block. Total time spent with patient discussing and formulating plan of care: 35 minutes. This medical document was created using an electronic medical record system with [employer] dictation system. Although this document has been carefully reviewed, there may still be some phonetic and typographical errors. These areas are purely typographical due to imperfections of the software programs, and do not reflect any compromise in the patient's medical care. Plan discussed with: Patient, Other (RN) My Orders Orders - MARIA C DÍAZ BLOOD SPLATTER ANALYST Procedure Category Date Status Time Heparin Drip/D5w PHA 10/18/24 Verified 100units/Ml 11:15 Enoxaparin Sodium PHA 10/18/24 Verified (Lovenox) 22:00 Date of Service: Oct 18, 2024 Billing Provider: MARIA C DÍAZ NP Common Visit Codes: [id number] INP/OBS CARE(HIGH) MARIA C DÍAZ NP Oct 18, 2024 11:17
[2024-10-18 13:08] LABS: INR 1.17 (0.9-1.15); Partial Thromboplastin Time 44.2 SEC (24.5-34.5); Prothrombin Time 12.2 sec (9.3-11.8)
--- NOTE | 2024-10-18 15:53 | DVHPN2 ---
Progress Note Date Seen: Oct 18, 2024 Medical Necessity Reason Pt with a Central, PICC or Fol: No Subjective Patient reports: Other (cough) Review of Systems: RESPIRATORY:Abnormal Objective vital signs Vital Sign Date Time Temp Pulse Resp B/P (MAP) Pulse Ox O2 Delivery O2 Flow Rate FiO2 10/18/24 13:00 98.1 67 18 112/69 (83) 94 98.1 10/18/24 08:00 Nasal Cannula* 3 32 Total Intake and Output 10/17/24 10/17/24 10/18/24 15:00 23:00 07:00 Intake Total 300 ml 300 ml 1414 ml Balance 300 ml 300 ml 1414 ml medications Current Medications Medications Dose Ordered Sig/Shavon Route Start Time Stop Time Status Last Admin Dose Admin Hydralazine HCl 10 mg Q6HP PRN IV 10/10/24 19:00 10/13/24 00:53 10 MG Ondansetron HCl 4 mg Q4HP PRN IV 10/10/24 19:00 Acetaminophen 650 mg Q6HP PRN PO 10/10/24 19:00 10/13/24 00:54 650 MG Nitroglycerin 0.4 mg Q5MINP PRN SL 10/10/24 19:00 Morphine Sulfate 2 mg Q30M PRN IV 10/10/24 19:00 Ceftriaxone Sodium 50 ml @ 100 mls/hr DAILY@09 IV 10/10/24 19:04 10/18/24 08:38 100 MLS/HR Albuterol 2.5 mg Q6HPRN PRN NEB 10/10/24 19:00 Cancel Aspirin 81 mg DAILY PO 10/12/24 10:00 10/18/24 08:36 81 MG Aspirin 81 mg DAILY PO 10/12/24 10:00 Cancel Atorvastatin Calcium 40 mg HS PO 10/11/24 22:00 10/17/24 21:42 40 MG Guaifenesin/ Codeine Phosphate 5 ml Q4HPRN PRN PO 10/13/24 14:30 10/17/24 21:51 5 ML Flecainide Acetate 100 mg Q12HR PO 10/16/24 10:00 10/18/24 09:11 100 MG Polyethylene Glycol 17 gm DAILYPRN PRN PO 10/16/24 11:15 Metoprolol Tartrate 12.5 mg BID PO 10/17/24 10:00 10/18/24 08:37 12.5 MG Lactulose 30 ml DAILYPRN PRN PO 10/17/24 10:15 Enoxaparin Sodium 100 mg Q12HR SC 10/18/24 22:00 Heparin Sodium/ Dextrose 250 ml @ 21 mls/hr [id number] IV 10/18/24 13:30 10/18/24 19:00 10/18/24 14:15 21 MLS/HR Examination: GENERAL:Normal, HEENT:Normal, NECK:Normal, LUNGS:Normal, CVS:Normal, ABDOMEN:Normal, MSK:Normal, SKIN:Normal, NEURO:Normal, :Normal laboratory and microbiology Laboratory Tests 10/18/24 07:05 10/17/24 07:11 Test 10/17/24 07:11 Range/Units Serum Glucose 97 74-106 mg/dL Microbiology Date/Time Source Procedure Growth Status 10/10/24 13:06 Blood Blood Culture - Final NO GROWTH AFTER 5 DAYS OF INCUBATION. Complete Problem List/Assessment/Plan Problem List/Assessment/Plan Acute kidney injury on chronic kidney disease stage 3B likely hemodynamic mediated + contrast Prerenal disease FENA 1% Hypertension Non ST elevated myocardial infarction Severe coronary artery disease status post catheterization plus CT angiogram IV contrast noted Diabetes Proteinuria Recommendations no new labs today,, Plan for higher level of care CABG versus high-risk PCI noted Plan discussed with: Patient My Orders My Orders Orders - SHARON HUERTA MD Procedure Category Date Status Time Basic Metabolic Panel LAB 10/19/24 Verified 04:00 SHARON HUERTA MD Oct 18, 2024 15:53
[2024-10-18 20:42] LABS: INR 1.16 (0.9-1.15); Partial Thromboplastin Time 54.9 SEC (24.5-34.5); Prothrombin Time 12.1 sec (9.3-11.8)
[2024-10-18] MEDS: ENOXAPARIN SOD 100 MG/1 ML SYRINGE SC SCH (21:56)
[2024-10-19] VITALS (7 sets, daily range): BP systolic 114–160; BP diastolic 69–90; PULSE 72–79; RESP 17–19; TEMP 97.3–99; O2SAT 91–97
[2024-10-19 07:01] LABS: Calcium 8.8 mg/dL (8.7-10.4); Potassium 4.6 mmol/L (3.5-5.1)
[2024-10-19 07:02] LABS: Anion Gap 8 (5-15); Carbon Dioxide 24 mmol/L (20-31); Chloride 96 mmol/L (98-107); Sodium 128 mmol/L (136-145)
[2024-10-19 07:07] LABS: BUN/Creatinine Ratio 18.3 (10.0-20.0)
[2024-10-19 07:08] LABS: Blood Urea Nitrogen 38 mg/dL (9-23); Glucose 108 mg/dL (74-106)
--- NOTE | 2024-10-19 14:24 | DVHPN2 ---
Subjective Patient denies any symptoms other than constipation. Reviewed: Care Plan, H&P, Labs, Medications Changes from previous H/P or p: No Changes General: Per HPI Objective Vitals Vital Signs Date Time Temp Pulse Resp B/P (MAP) Pulse Ox O2 Delivery O2 Flow Rate FiO2 10/19/24 13:00 98.3 78 17 114/69 (84) 97 98.3 10/19/24 08:00 Nasal Cannula* 3 32 Intake/Output Intake and Output 10/19/24 07:00 Intake Total 2294.0 ml Output Total 0 ml Balance 2294.0 ml Intake Oral 1680 ml IV Total 614.0 ml Stool Total 0 ml # Voids 8 Exam Patient was assessed in the cardiac catheterization lab recovery area. General Appearance: Alert, Oriented X3, Cooperative, No acute distress HEENT: Atraumatic, PERRLA Lungs: Clear to auscultation, Normal air movement Cardiovascular: Normal S1, Normal S2 Abdomen: Normal bowel sounds, Soft, No tenderness Genitourinary: No Apparent Abnormalities Musculoskeletal: Normal sensory function, Normal motor function Neuro: Normal speech Skin: Dry, Intact Psych/Mental Status: Mental status NL Medications Current Medications Medications Dose Ordered Sig/Shavon Route Start Time Stop Time Status Last Admin Dose Admin Hydralazine HCl 10 mg Q6HP PRN IV 10/10/24 19:00 10/13/24 00:53 10 MG Ondansetron HCl 4 mg Q4HP PRN IV 10/10/24 19:00 Acetaminophen 650 mg Q6HP PRN PO 10/10/24 19:00 10/13/24 00:54 650 MG Nitroglycerin 0.4 mg Q5MINP PRN SL 10/10/24 19:00 Morphine Sulfate 2 mg Q30M PRN IV 10/10/24 19:00 Ceftriaxone Sodium 50 ml @ 100 mls/hr DAILY@09 IV 10/10/24 19:04 10/19/24 09:16 100 MLS/HR Albuterol 2.5 mg Q6HPRN PRN NEB 10/10/24 19:00 Cancel Aspirin 81 mg DAILY PO 10/12/24 10:00 10/19/24 09:24 81 MG Aspirin 81 mg DAILY PO 10/12/24 10:00 Cancel Atorvastatin Calcium 40 mg HS PO 10/11/24 22:00 10/18/24 21:56 40 MG Guaifenesin/ Codeine Phosphate 5 ml Q4HPRN PRN PO 10/13/24 14:30 10/17/24 21:51 5 ML Flecainide Acetate 100 mg Q12HR PO 10/16/24 10:00 10/19/24 09:42 100 MG Polyethylene Glycol 17 gm DAILYPRN PRN PO 10/16/24 11:15 Metoprolol Tartrate 12.5 mg BID PO 10/17/24 10:00 10/19/24 09:34 12.5 MG Lactulose 30 ml DAILYPRN PRN PO 10/17/24 10:15 Enoxaparin Sodium 100 mg Q12HR SC 10/18/24 22:00 10/19/24 09:34 100 MG Laboratory Results Laboratory Tests 10/18/24 07:05 10/19/24 05:18 Chemistry Test 10/19/24 05:18 Calcium Level 8.8 mg/dL (8.7-10.4) Coagulation Test 10/18/24 20:02 Prothrombin Time 12.1 sec (9.3-11.8) H Prothrombin Time INR 1.16 (0.9-1.15) H Activated Partial Thromboplast Time 54.9 SEC (24.5-34.5) H Urinalysis Test 10/10/24 12:10 10/12/24 21:00 Urine Color Yellow (Yellow) Urine Clarity Turbid (Clear) H Urine pH 6.0 (5.0-9.0) Urine Specific [place] 1.023 (1.001-1.035) Urine Protein 3+ (Negative) H Urine Ketones 1+ (Negative) H Urine Blood 2+ /uL (Negative) H Urine Nitrite Negative (Negative) Urine Bilirubin Negative (Negative) Urine Urobilinogen Normal mg/dL (Negative) Urine Leukocyte Esterase Negative /uL (Negative) Urine RBC 6 /hpf (0 - 3) Urine Microscopic WBC 3 /HPF (0-3) Urine Squamous Epithelial Cells Few /hpf (<5) Urine Bacteria Few /hpf (None Seen) H Urine Mucus Few (None Seen) Urine Glucose 1+ mg/dL (Normal) H Urine Osmolality 438 mOsm/kg Urine Creatinine 96.58 mg/dL (30.0-125.0) Urine Sodium 49 mmol/L (40-220) Microbiology Microbiology Date/Time Source Procedure Growth Status 10/10/24 13:06 Blood Blood Culture - Final NO GROWTH AFTER 5 DAYS OF INCUBATION. Complete Labs and/or images reviewed: Image(s) reviewed by me Assessment/Plan Assessment/Plan Impression: -sepsis -community-acquired pneumonia, probable Gram-positive/Gram-negative etiology -NSTEMI, type 1 -multivessel coronary artery disease -diabetes mellitus -primary hypertension -dyslipidemia -probable CKD stage IIIB/4 -pulmonary nodule, 1 cm -history of nicotine dependence -acute hypoxic respiratory failure -hyponatremia Plan: Events: Continues to be holding for bed at [facility]. Continue current plan of care. Discussed hyponatremia with Nephrology. Possible initiation of diuresis -bowel regimen: Lactulose 30 mL x1 and daily as needed. -continue Rocephin. Stop azithromycin given full course provided. -cardiology consultation: Recommendations appreciated -regular insulin sliding scale -antibiotic therapy: Rocephin, azithromycin -continue Robitussin with codeine -continue aspirin and statin, add beta ena given patient has hypertension and no signs of heart block. Total time spent with patient discussing and formulating plan of care: 35 minutes. This medical document was created using an electronic medical record system with [employer] dictation system. Although this document has been carefully reviewed, there may still be some phonetic and typographical errors. These areas are purely typographical due to imperfections of the software programs, and do not reflect any compromise in the patient's medical care. Plan discussed with: Patient, Other (RN) My Orders Orders - MARIA C DÍAZ NP Procedure Category Date Status Time Lactulose Oral PHA 10/19/24 Verified 14:30 Lactulose Oral PHA 10/19/24 Verified 14:30 Date of Service: Oct 19, 2024 Billing Provider: MARIA C DÍAZ NP Common Visit Codes: [id number] INP/OBS CARE(HIGH) MARIA C DÍAZ NP Oct 19, 2024 14:24
[2024-10-19] MEDS ORDERED: LACTULOSE 20Gm/30ML SOLN PO PRN (14:30)
[2024-10-19] MEDS: LACTULOSE 20Gm/30ML SOLN PO ONE (14:42)
--- NOTE | 2024-10-19 19:13 | DVHPN2 ---
Progress Note Date Seen: Oct 19, 2024 Medical Necessity Reason Pt with a Central, PICC or Fol: No Subjective Patient reports: No new complaints, Other Review of Systems: HEENT:Normal, CVS:Normal, RESPIRATORY:Abnormal (sob), GI:Normal, :Normal, MSK:Normal, NEURO:Normal Objective vital signs Vital Sign Date Time Temp Pulse Resp B/P (MAP) Pulse Ox O2 Delivery O2 Flow Rate FiO2 10/19/24 17:18 98.3 78 17 97 10/19/24 17:00 122/75 (91) 10/19/24 08:00 Nasal Cannula* 3 32 Total Intake and Output 10/18/24 10/18/24 10/19/24 15:00 23:00 07:00 Intake Total 519.5 ml 574.5 ml 1200 ml Output Total 0 ml Balance 519.5 ml 574.5 ml 1200 ml medications Current Medications Medications Dose Ordered Sig/Shavon Route Start Time Stop Time Status Last Admin Dose Admin Hydralazine HCl 10 mg Q6HP PRN IV 10/10/24 19:00 10/13/24 00:53 10 MG Ondansetron HCl 4 mg Q4HP PRN IV 10/10/24 19:00 Acetaminophen 650 mg Q6HP PRN PO 10/10/24 19:00 10/13/24 00:54 650 MG Nitroglycerin 0.4 mg Q5MINP PRN SL 10/10/24 19:00 Morphine Sulfate 2 mg Q30M PRN IV 10/10/24 19:00 Ceftriaxone Sodium 50 ml @ 100 mls/hr DAILY@09 IV 10/10/24 19:04 10/19/24 09:16 100 MLS/HR Albuterol 2.5 mg Q6HPRN PRN NEB 10/10/24 19:00 Cancel Aspirin 81 mg DAILY PO 10/12/24 10:00 10/19/24 09:24 81 MG Aspirin 81 mg DAILY PO 10/12/24 10:00 Cancel Atorvastatin Calcium 40 mg HS PO 10/11/24 22:00 10/18/24 21:56 40 MG Guaifenesin/ Codeine Phosphate 5 ml Q4HPRN PRN PO 10/13/24 14:30 10/17/24 21:51 5 ML Flecainide Acetate 100 mg Q12HR PO 10/16/24 10:00 10/19/24 09:42 100 MG Polyethylene Glycol 17 gm DAILYPRN PRN PO 10/16/24 11:15 Metoprolol Tartrate 12.5 mg BID PO 10/17/24 10:00 10/19/24 09:34 12.5 MG Enoxaparin Sodium 100 mg Q12HR SC 10/18/24 22:00 10/19/24 09:34 100 MG Lactulose 30 ml DAILYPRN PRN PO 10/19/24 14:30 laboratory and microbiology Laboratory Tests 10/19/24 05:18 10/18/24 07:05 Test 10/19/24 05:18 Range/Units Serum Glucose 108 H 74-106 mg/dL Microbiology Date/Time Source Procedure Growth Status 10/10/24 13:06 Blood Blood Culture - Final NO GROWTH AFTER 5 DAYS OF INCUBATION. Complete Problem List/Assessment/Plan Problem List/Assessment/Plan Acute kidney injury on chronic kidney disease stage 3B likely hemodynamic mediated + contrast Prerenal disease FENA 1% Hypertension Non ST elevated myocardial infarction Severe coronary artery disease status post catheterization plus CT angiogram IV contrast noted Diabetes Proteinuria Recommendations lasix iv as ordered Plan for higher level of care CABG versus high-risk PCI noted Plan discussed with: Patient SHARON HUERTA MD Oct 19, 2024 19:13
[2024-10-19] MEDS ORDERED: FUROSEMIDE 100 MG/10ML VIAL IV ONE (19:15)
[2024-10-20] MEDS ORDERED: FUROSEMIDE 40 MG/4 ML VIAL IV SCH (10:00)
== END 2024-10-19 20:00 | disposition short-term general hospital (02) | DRG 871 ==
LOC: ER 11:24 → TELE 18:46 → TELE-CENTR 10-12 16:45
PROVIDERS: ADMIT Nurse Practitioner; ATTEND Nurse Practitioner Acute Care
PROC: 4A023N7 Measurement of Cardiac Sampling and Pressure, Left Heart, Percutaneous Approach (ICD-10-PCS; principal; 2024-10-15)
PROC: B211YZZ Fluoroscopy of Multiple Coronary Arteries using Other Contrast (ICD-10-PCS; 2024-10-15)
DX: A41.9 Sepsis, unspecified organism (principal); I21.4 Non-ST elevation (NSTEMI) myocardial infarction; J96.01 Acute respiratory failure with hypoxia; I50.33 Acute on chronic diastolic (congestive) heart failure; J18.9 Pneumonia, unspecified organism; N17.9 Acute kidney failure, unspecified; I13.0 Hypertensive heart and chronic kidney disease with heart failure and stage 1 through stage 4 chronic kidney disease, or unspecified chronic kidney disease; E87.1 Hypo-osmolality and hyponatremia; Z20.822 Contact with and (suspected) exposure to COVID-19; E11.22 Type 2 diabetes mellitus with diabetic chronic kidney disease; N18.32 Chronic kidney disease, stage 3b; E66.9 Obesity, unspecified; E78.5 Hyperlipidemia, unspecified; I25.10 Atherosclerotic heart disease of native coronary artery without angina pectoris; R91.1 Solitary pulmonary nodule; I48.0 Paroxysmal atrial fibrillation; I48.91 Unspecified atrial fibrillation; Z87.891 Personal history of nicotine dependence; Z99.81 Dependence on supplemental oxygen; Z68.29 Body mass index [BMI] 29.0-29.9, adult
CPT/HCPCS: 36415; 71045; 71046; 71275; 80048; 80053; 80061; 80307; 81001; 82570; 83036; 83605; 83735; 83880; 83935; 84300; 84443; 84484; 85007; 85025; 85027; 85379; 85610; 85730; 86850; 86900; 86901; 87040; 87426; 87804; 93005; 93306; 93458; 96365; 96372; 99152; 99291; G0378; J2250; Q9967

== ENCOUNTER 2024-11-01 11:32 | Inpatient (IN) | payer BC ==
[~2024-11-01] VITALS: Ht 180.3 cm; Wt 84.5 kg
[2024-11-01] MEDS ORDERED: ONDANSETRON HCL 4 MG/2 ML VIAL IV PRN (16:00)
[2024-11-01] MEDS ORDERED: IPRATROPIUM BROM 0.5 MG/2.5ML INH SOL NEB PRN (16:00)
[2024-11-01] MEDS ORDERED: DEXTROSE (50%) 50ML SYRG IV PRN (16:00)
[2024-11-01] MEDS ORDERED: NITROGLYCERIN 0.4 MG SL TAB SL PRN (16:00)
[2024-11-01] MEDS ORDERED: ALBUTEROL SULF 2.5 MG/0.5ML(0.5%) NEB SOLN NEB PRN (16:00)
[2024-11-01] MEDS ORDERED: MORPHINE SULFATE INJ 2 MG/ml SYRG IV PRN ×2 (16:00)
[2024-11-01] MEDS ORDERED: HYDROcodone-ACET 5/325MG TAB PO PRN (16:00)
--- NOTE | 2024-11-01 16:03 | DVHHP2 ---
History of Present Illness Reason for Visit: Status post CABG History of Present Illness The patient is a 59-year-old male transferred back from [facility] after undergoing coronary artery bypass grafting x3. Patient was significant history diabetes mellitus, nicotine dependence, dyslipidemia, and chronic kidney disease. Postoperatively, the patient's recovery was uneventful. Patient was transferred back to [facility] for purposes of repatriation post surgery. Cardiovascular: CAD, HTN, hyperipidemia Pulmonary: COPD Renal/: Chronic renal failure Endocrine: Diabetes Past Surgical History: CABG Family History: None Smoke: 1 pack per day ALCOHOL: none Drugs: None Lives: with Family Review of Systems Constitutional: No: Fever, Chills, Sweats, Weakness, Malaise, Other Eyes: No: Pain, Vision change, Conjunctivae inflammation, Eyelid inflammation, Other, Redness ENT: No: Ear pain, Ear discharge, Nose pain, Nose discharge, Nose congestion, Mouth pain, Mouth swelling, Throat pain, Throat swelling, Other Gastrointestinal: No: Nausea, Vomiting, Abdominal Pain, Diarrhea, Constipation, Melena, Hematochezia, Other Musculoskeletal: other (BLE leg weakness) Skin: No: Rash, Lesions, Jaundice, Bruising, Other Neurological: No: Weakness, Numbness, Incoordination, Change in speech, Confusion, Seizures, Other Allergies: Uncoded Allergies: Fish, ShellFish, Milk (Allergy, Unknown, 11/01/24) Exam General Appearance: Alert, Oriented X3, Cooperative HEENT: PERRLA Respiratory: Clear to auscultation, Normal air movement Cardiovascular: Normal S1, Normal S2 Abdominal: Normal bowel sounds, No tenderness Extremities: Normal pulses Neuro: Normal gait Psych/Mental Status: Mental status NL, Mood NL Assessment/Plan Assessment/Plan Impression: -coronary artery disease, status post bypass -primary hypertension -dyslipidemia -diabetes mellitus -nicotine dependence -CKD stage IIIB Plan: -admit to telemetry unit -repeat labs in a.m. -regular insulin sliding scale -reinitiate aspirin, beta blockers, statins -physical therapy consultation -O2 supplementation to keep saturation greater than 92% -bronchodilators Total time spent with patient discussing and formulating plan of care: 35 minut es. This medical document was created using an electronic medical record system with [employer] dictation system. Although this document has been carefully reviewed, there may still be some phonetic and typographical errors. These areas are purely typographical due to imperfections of the software programs, and do not reflect any compromise in the patient's medical care. Plan discussed with: Patient, Other (RN) My Orders Orders - MARIA C DÍAZ NP Procedure Category Date Status Time Comprehensive LAB 11/02/24 Verified Metabolic Panel 04:00 Complete Blood Count LAB 11/02/24 Verified 04:00 Admit ADMIT 11/01/24 Verified 15:56 Nitroglycerin PHA 11/01/24 Verified Sublingual (Ntrostat 16:00 Morphine Sulfate PHA 11/01/24 Verified Injection 16:00 Stat Ekg For Chest DUGLAS 11/01/24 Verified Pain 15:56 Notify Md Of Changes DUGLAS 11/01/24 Verified From Base 15:56 Customer Service Rep For DUGLAS 11/01/24 Verified 24 Hours 15:56 Emergency Dysrhythmia DUGLAS 11/01/24 Verified Protocol 15:56 Rhythm Strips Once DUGLAS 11/01/24 Verified Every Shift 15:56 Oxygen By Nasal RT 11/01/24 Verified Cannula 15:56 Chest Xray 1 View XY 11/02/24 Verified 04:00 Consistent DIET 11/01/24 Verified Carb(Ccho)Diabetes Dinner Pt Request For Service PT 11/02/24 Verified 04:00 Morphine Sulfate PHA 11/01/24 Verified Injection 16:00 Hydrocodone-Acet PHA 11/01/24 Verified 5/325mg Tab (Linden 16:00 Acetaminophen Tablet PHA 11/01/24 Verified (Tylenol Tablet) 16:00 Ondansetron Hcl PHA 11/01/24 Verified (Zofran) 16:00 Docusate Sodium PHA 11/01/24 Verified Capsule (Colace 16:00 Albuterol Medneb PHA 11/01/24 Verified (Ventolin Medneb) 16:00 Ipratropium Medneb PHA 11/01/24 Verified (Atrovent Medneb) 16:00 Glucose Blood PHA 11/01/24 Verified (Accu-Chek Comfort 17:00 Bedtime Insulin Scale PHA 11/01/24 Verified 22:00 Moderate Insulin Ss PHA 11/01/24 Verified 17:00 Dextrose 50% Syringe PHA 11/01/24 Verified 16:00 Date of Service: Nov 01, 2024 Billing Provider: MARIA C DÍAZ NP Common Visit Codes: [id number] INP/OBS CARE (HIGH) MARIA C DÍAZ NP Nov 01, 2024 16:03
[2024-11-01 18:00] VITALS: BP 142/77; PULSE 73; RESP 16; TEMP 98.4; O2SAT 94
[2024-11-01 18:11] VITALS: BP 142/72; PULSE 73; RESP 18; RESP 94; TEMP 98.4; O2SAT 94
[2024-11-01] MEDS: ACCU-CHEK COMFORT CURVE STRIP VI SCH (18:45)
[2024-11-01] MEDS: InsuLIN REG 1unit/0.01ml Soln (100units/ml) SC SCH ×2 (18:50→21:47)
[2024-11-01] MEDS ORDERED: METF-370 PO (19:09)
[2024-11-01] MEDS ORDERED: ATOR10TA52 PO (19:09)
[2024-11-01 20:00] VITALS: PULSE 74; PULSE 85; RESP 17; O2SAT 98
[2024-11-01 21:00] VITALS: BP 129/72; PULSE 79; RESP 18; TEMP 98.6; O2SAT 91
[2024-11-01] MEDS: ACETAMINOPHEN 500 MG TAB or CAP PO PRN (21:41)
[2024-11-01 22:49] VITALS: BP 129/72; PULSE 76; RESP 18; TEMP 98.6; O2SAT 98
[2024-11-01 22:51] VITALS: O2SAT 98
[2024-11-01] MEDS ORDERED: traMADol HCL 50 MG TAB PO PRN (23:00)
[2024-11-01] MEDS: traMADol HCL 50 MG TAB PO PRN (23:55)
[2024-11-02] VITALS (12 sets, daily range): BP systolic 116–145; BP diastolic 61–72; PULSE 70–85; RESP 17–18; TEMP 98.3–99; O2SAT 92–98
[2024-11-02 05:15] LABS: Hematocrit 28.1 % (41.0-53.0); Hemoglobin 9.2 g/dL (13.5-17.5); Mean Corpuscular Hemoglobin 28.8 pg (28.0-32.0); Mean Corpuscular Hgb Conc. 32.6 g/dL (32.0-36.0); Mean Corpuscular Volume 88.3 fL (80.0-100.0); Platelet Count (auto) 284 10^3/uL (140-450); Red Blood Cells 3.18 10^6/uL (4.5-5.90); White Blood Cell 3.3 10^3/uL (4.4-10.8)
[2024-11-02 05:30] LABS: Alanine Aminotransferase 22 U/L (7-40); Anion Gap 7 (5-15); Aspartate Aminotransferase 25 U/L (13-40); BUN/Creatinine Ratio 30.6 (10.0-20.0); Bilirubin, Total 0.3 mg/dL (0.2-1.0); Calcium 8.9 mg/dL (8.7-10.4); Carbon Dioxide 28 mmol/L (20-31); Potassium 4.9 mmol/L (3.5-5.1); Total Protein 6.7 g/dL (5.7-8.2)
[2024-11-02 05:38] LABS: Alkaline Phosphatase 166 U/L (46-116); Chloride 98 mmol/L (98-107); Glucose 112 mg/dL (74-106); Sodium 133 mmol/L (136-145)
[2024-11-02 05:40] LABS: Blood Urea Nitrogen 90 mg/dL (9-23)
[2024-11-02 05:46] LABS: Basophils % (manual) 0 (0.0-2.0); Blast Cells 0; Metamyelocytes % 0; Myelocytes % 0; Promyelocytes % 0; Reactive Lymphocytes 0
--- NOTE | 2024-11-02 06:06 | DVH ---
CHEST RADIOGRAPH Indication: s/p cabg Technique: Single frontal view of the chest was obtained Comparison: XY CHEST XRAY 1 VIEW on DOS: 10/17/24 FINDINGS: Lines and Tubes: None Lungs: Bilateral interstitial prominence. No focal consolidation. Pleura: No effusion. No pneumothorax. Cardiomediastinal contours: Cardiomegaly. Bones: No acute osseous abnormality. Status post median sternotomy. IMPRESSION: 1. Decreased bilateral interstitial prominence compatible with improved edema.
[2024-11-02 06:35] LABS: Band Neutrophils % (manual) 2; Eosinophils % (manual) 4 (0-7); Lymphocytes % (manual) 44 (10.0-50.0); Monocytes % (manual) 10 (0-12); Platelet Estimate Adequate
[2024-11-02] MEDS ORDERED: ATOR80TA PO (07:38)
[2024-11-02] MEDS ORDERED: FAMO-12 PO (07:41)
[2024-11-02] MEDS ORDERED: FURO1TAB33 PO (07:41)
[2024-11-02] MEDS ORDERED: ASPI81CH49 PO (07:41)
[2024-11-02] MEDS ORDERED: METO25TA5 PO (07:45)
[2024-11-02] MEDS ORDERED: HEPA10004 IJ (07:45)
[2024-11-02] MEDS ORDERED: MELA3TAB27 PO (07:45)
[2024-11-02] MEDS ORDERED: TAMS0.4C39 PO (07:45)
--- NOTE | 2024-11-02 11:04 | DVHINCON2 ---
Date of service: Nov 02, 2024 Referring Physician Erwin Fink, nurse practitioner Reason for Consultation Acute kidney injury History of Present Illness Patient is a 59-year-old male with past medical history of diabetes mellitus, hypertension, coronary artery disease and Chronic Kidney Disease stage 3 who is transferred back from [facility] status post CABG. On admission patient found to have elevated BUN creatinine nephrology is consulted for acute kidney injury Past Medical History Diabetes mellitus, hypertension, hyperlipidemia, coronary artery disease, chronic kidney disease stage 3 Past Surgical History CABG Allergies: Uncoded Allergies: Fish, ShellFish, Milk (Allergy, Unknown, 11/01/24) Home Meds Reported Medications Tamsulosin Hcl (Tamsulosin Hcl) 0.4 Mg Cap, 0.4 MG PO QPM for 30 Days, MG 11/02/24 Metoprolol Tartrate (Metoprolol Tartrate) 25 Mg Tab, 0.5 TAB PO BID, #180 TAB 1 Refill 11/02/24 Melatonin (KP MELATONIN) 3 Mg Tab, 1 TAB PO QPM, #30 TAB 2 Refills 11/02/24 Heparin Sodium (Porcine) (Heparin Sodium) 5,000 Unit/0.5 Ml Inj, 5000 UNIT IJ, INJ 11/02/24 Furosemide (Lasix) 20 Mg Tb, 1 TAB PO BID, #90 TAB 1 Refill 11/02/24 Famotidine (Famotidine) 20 Mg Tab, 20 MG PO BID for 30 Days, MG 11/02/24 Aspirin (Aspirin) 81 Mg Chw, 81 MG PO, TAB.CHEW 11/02/24 Atorvastatin Calcium (Lipitor) 80 Mg Tab, 1 TAB PO DAILY, #30 TAB 5 Refills 11/02/24 Metformin Hydrochloride (Metformin Hcl) 500 Mg Tab, 500 MG PO DAILY for 30 Days, MG 11/01/24 Atorvastatin Calcium (ATORVASTATIN CALCIUM) 10 Mg Tab, 10 MG PO DAILY, TAB 11/01/24 Lisinopril (Lisinopril) 10 Mg Tab, 1 TAB PO DAILY for 60 Days, #60 10/11/24 Current Medications Current Medications Medications (Trade) Dose Ordered Sig/Shavon Route PRN Reason Start Time Stop Time Status Last Admin Nitroglycerin (Ntrostat Sublingual) 0.4 mg Q5MINP PRN SL FOR CHEST PAIN 11/01/24 16:00 Morphine Sulfate 2 mg Q30M PRN IV FOR CHEST PAIN 11/01/24 16:00 Morphine Sulfate 1 mg Q4HPRN PRN IV SEVERE PAIN (7-10 PAIN SCALE) 11/01/24 16:00 11/01/24 23:06 DC Acetaminophen/ Hydrocodone Bitart ([place] 5/325MG Tab) 1 tab Q6HPRN PRN PO MODERATE PAIN (4-6 PAIN SCALE) 11/01/24 16:00 11/01/24 23:06 DC Acetaminophen (Tylenol Tablet Or Capsule) 500 mg Q8HP PRN PO PAIN SCALE 1-3 OR TEMP>100.4 11/01/24 16:00 11/01/24 21:41 Ondansetron HCl (Zofran) 4 mg Q6HP PRN IV NAUSEA / VOMITING 11/01/24 16:00 Docusate Sodium (Colace Capsule) 100 mg BID PRN PO FOR CONSTIPATION 11/01/24 16:00 Albuterol (Ventolin Medneb) 2.5 mg Q4HPRN PRN NEB SHORTNESS OF BREATH 11/01/24 16:00 Ipratropium [place] (Atrovent Medneb) 0.5 mg Q4HPRN PRN NEB SHORTNESS OF BREATH 11/01/24 16:00 Diagnostic Test (Pha) (Accu-Chek Comfort Curve T) 1 strip ACHS 11/01/24 17:00 11/02/24 11:41 Insulin Human Regular (InsuLIN R) HS SC 11/01/24 22:00 Insulin Human Regular (InsuLIN R) AC SC 11/01/24 17:00 11/02/24 11:41 Dextrose 50 ml UD PRN IV Blood Sugar LESS THAN 60 11/01/24 16:00 Tramadol HCl (Ultram) 50 mg Q6HP PRN PO SEVERE PAIN (7-10 PAIN SCALE) 11/01/24 23:00 11/01/24 23:55 Tramadol HCl (Ultram) 25 mg Q6HP PRN PO MODERATE PAIN (4-6 PAIN SCALE) 11/01/24 23:00 Family History: FH: alcohol abuse G8 FATHER FHx: lung disease G8 FATHER Sepsis Suicide G8 MOTHER Review of Systems All 12 item review of systems reviewed with the patient nonsignificant except what is mentioned in the history of present illness H&P Exam Vital Signs/I&O Vital Sign Date Time Temp Pulse Resp B/P (MAP) Pulse Ox O2 Delivery O2 Flow Rate FiO2 11/02/24 09:47 96 Room Air 11/02/24 09:47 0 21 11/02/24 09:00 98.3 76 18 145/71 (95) 98.3 Intake and Output 11/01/24 11/02/24 19:00 07:00 Intake Total 650 ml Output Total 800 ml Balance -150 ml Intake Oral 650 ml Output Urine Total 800 ml Physical Exam Patient is awake alert Lungs clear to auscultation bilaterally Cardiac exam regular rate and rhythm GI soft nontender was normal Extremities no clubbing cyanosis or edema Neuro nonfocal Labs/Diagnostic Data Labs/Diagnostic Data Laboratory Tests Test 11/02/24 11:53 11/02/24 06:20 11/02/24 04:06 11/01/24 21:24 Range/Units Urine Color Yellow Yellow Urine Clarity Clear Clear Urine pH 6.0 5.0-9.0 Urine Specific [place] 1.016 1.001-1.035 Urine Protein 2+ H Negative Urine Ketones Negative Negative Urine Blood 1+ H Negative /uL Urine Nitrite Negative Negative Urine Bilirubin Negative Negative Urine Urobilinogen 3 H Negative mg/dL Urine Leukocyte Esterase Negative Negative /uL Urine RBC 2 0 - 3 /hpf Urine Microscopic WBC 3 0-3 /HPF Urine Squamous Epithelial Cells None seen <5 /hpf Urine Bacteria None seen None Seen /hpf Urine Creatinine 72.48 30.0-125.0 mg/dL Urine Protein/Creatinine Ratio 2.58 Urine Sodium 27 L 40-220 mmol/L Urine Glucose Normal Normal mg/dL Urine Total Protein 186.7 H 1-14 mg/dL POC Glucose 111 H 167 H 70-106 mg/dl White Blood Count 3.3 L 4.4-10.8 10^3/uL Red Blood Count 3.18 L 4.5-5.90 10^6/uL Hemoglobin 9.2 L 13.5-17.5 g/dL Hematocrit 28.1 L 41.0-53.0 % Mean Corpuscular Volume 88.3 80.0-100.0 fL Mean Corpuscular Hemoglobin 28.8 28.0-32.0 pg Mean Corpuscular Hemoglobin Concent 32.6 32.0-36.0 g/dL Red Cell Distribution Width 15.0 H 11.8-14.3 % Platelet Count 284 140-450 10^3/uL Mean Platelet Volume 9.6 6.9-10.8 fL Neutrophils (%) (Auto) 37.0-80.0 % Lymphocytes (%) (Auto) 10.0-50.0 % Monocytes (%) (Auto) 0.0-12.0 % Basophils (%) (Auto) 0.0-2.0 % Neutrophils # (Auto) 1.6-8.6 10 ^3/uL Lymphocytes # (Auto) 0.4-5.4 10 ^3/uL Monocytes # (Auto) 0-1.3 10 ^3/uL Differential Total Cells Counted 100.0 100 Neutrophils % (Manual) 40 37.0-80.0 Band Neutrophils % (Manual) 2 Lymphocytes % (Manual) 44 10.0-50.0 Monocytes % (Manual) 10 0-12 Eosinophils % (Manual) 4 0-7 Basophils % (Manual) 0 0.0-2.0 Metamyelocytes % (manual) 0 Myelocytes % (Manual) 0 Promyelocytes % (Manual) 0 Blast Cells % (Manual) 0 Reactive Lymphocytes 0 Platelet Estimate Adequate Sodium Level 133 L 136-145 mmol/L Potassium Level 4.9 3.5-5.1 mmol/L Chloride Level 98 98-107 mmol/L Carbon Dioxide Level 28 20-31 mmol/L Anion Gap 7 5-15 Blood Urea Nitrogen 90 *H 9-23 mg/dL Creatinine 2.94 H 0.700-1.30 mg/dL Glomerular Filtration Rate Calc 24 >90 mL/min BUN/Creatinine Ratio 30.6 H 10.0-20.0 Serum Glucose 112 H 74-106 mg/dL Uric Acid 9.0 3.7-9.2 mg/dL Calcium Level 8.9 8.7-10.4 mg/dL Phosphorus Level 5.2 H 2.4-5.1 mg/dL Magnesium Level 2.9 H 1.6-2.6 mg/dL Total Bilirubin 0.3 0.2-1.0 mg/dL Aspartate Amino Transferase (AST) 25 13-40 U/L Alanine Aminotransferase (ALT) 22 7-40 U/L Alkaline Phosphatase 166 H 46-116 U/L B-Type Natriuretic Peptide 370.91 0-100 pg/mL Total Protein 6.7 5.7-8.2 g/dL Albumin 3.0 L 3.2-4.8 g/dL Vitamin D 25-Hydroxy 12.1 L 30.0-100 ng/mL Parathyroid Hormone (Intact) 68.5 18.4-80.1 pg/mL Test 11/01/24 18:55 Range/Units POC Glucose 153 H 70-106 mg/dl Assessment Acute kidney injury superimposed Chronic Kidney Disease secondary hemodynamic mediated CAD status post CABG Diabetes mellitus type 2 Chronic diastolic heart failure Hypertension Anemia of chronic kidney disease Recommendations Closely monitor fluid and electrolytes Avoid nephrotoxic medication Strict I&Os Check urinalysis urine lytes and urine protein Check kidney ultrasound Renal diet Blood pressure control Insulin sliding scale We will continue to follow Patient seen and examined by myself. I discussed my plan of care with the patient, his and daughter and the primary nurse at the bedside I would like to thank Erwin for the consult, will follow up Plan discussed with: Patient RITA SANDS MD Nov 02, 2024 11:03
[2024-11-02 11:32] LABS: Magnesium 2.9 mg/dL (1.6-2.6); Phosphorus 5.2 mg/dL (2.4-5.1)
--- NOTE | 2024-11-02 11:45 | DVH ---
INDICATION: monique TECHNIQUE: Multiple real-time sonographic images of the kidneys and bladder were obtained. COMPARISON: None FINDINGS: The right kidney measures 12 cm in length, which is normal in size. There is normal echogenicity of t he right kidney. No hydronephrosis. The left kidney measures 13 cm in length, which is normal in size. There is normal echogenicity of th e left kidney. No hydronephrosis. No large intraluminal masses are seen in the bladder. Prior to voiding the bladder volume measures volume 93 cc. IMPRESSION: 1. Normal sonographic appearance of the kidneys. No hydronephrosis.
[2024-11-02 11:54] LABS: Urine Bacteria None Seen /hpf (None Seen)
[2024-11-02 12:30] LABS: Urine Blood 1+ /uL (Negative); Urine Clarity Clear (Clear); Urine Color Yellow (Yellow); Urine Protein, UAD 2+ (Negative); Urine Specific Gravity 1.016 (1.001-1.035); Urine Squamous Epithelial Cell None Seen /hpf (<5); Urine Urobilinogen 3 mg/dL (Negative); Urine WBC 3 /HPF (0-3)
[2024-11-02 12:42] LABS: Protein, Urine 186.7 mg/dL (1-14)
[2024-11-02 12:45] LABS: Creatinine, Urine 72.48 mg/dL (30.0-125.0); Urine Protein/Creatinine Ratio 2.58
--- NOTE | 2024-11-02 15:36 | DVHPN2 ---
Subjective Continues to complain of severe weakness in lower extremities Reviewed: Care Plan, H&P, Labs, Medications, Previous Orders Changes from previous H/P or p: No Changes General: Per HPI Objective Vitals Vital Signs Date Time Temp Pulse Resp B/P (MAP) Pulse Ox O2 Delivery O2 Flow Rate FiO2 11/02/24 13:00 98.5 83 17 142/67 (92) 93 98.5 11/02/24 09:47 Room Air 11/02/24 09:47 0 21 Intake/Output Intake and Output 11/02/24 07:00 Intake Total 650 ml Output Total 800 ml Balance -150 ml Intake Oral 650 ml Output Urine Total 800 ml General Appearance: Alert, Oriented X3, Cooperative HEENT: Atraumatic Lungs: Clear to auscultation, Normal air movement Chest/Breasts: Other (Midline incision dry and intact) Cardiovascular: Normal S1, Normal S2 Abdomen: Normal bowel sounds, Soft Genitourinary: No Apparent Abnormalities (Jones catheter) Musculoskeletal: Normal sensory function, Normal motor function Neuro: Normal speech, Cranial nerves 3-12 NL, Other (Severe severe weakness to lower extremity) Psych/Mental Status: Mental status NL, Mood NL Medications Current Medications Medications Dose Ordered Sig/Shavon Route Start Time Stop Time Status Last Admin Dose Admin Nitroglycerin 0.4 mg Q5MINP PRN SL 11/01/24 16:00 Morphine Sulfate 2 mg Q30M PRN IV 11/01/24 16:00 Acetaminophen 500 mg Q8HP PRN PO 11/01/24 16:00 11/01/24 21:41 500 MG Ondansetron HCl 4 mg Q6HP PRN IV 11/01/24 16:00 Docusate Sodium 100 mg BID PRN PO 11/01/24 16:00 Albuterol 2.5 mg Q4HPRN PRN NEB 11/01/24 16:00 Ipratropium [place] 0.5 mg Q4HPRN PRN NEB 11/01/24 16:00 Diagnostic Test (Pha) 1 strip ACHS 11/01/24 17:00 11/02/24 11:41 1 STRIP Insulin Human Regular HS SC 11/01/24 22:00 Insulin Human Regular AC SC 11/01/24 17:00 11/02/24 11:41 2 UNITS Dextrose 50 ml UD PRN IV 11/01/24 16:00 Tramadol HCl 50 mg Q6HP PRN PO 11/01/24 23:00 11/01/24 23:55 50 MG Tramadol HCl 25 mg Q6HP PRN PO 11/01/24 23:00 Famotidine 20 mg BID PO 11/02/24 22:00 UNV Metoprolol Tartrate 12.5 mg BID PO 11/02/24 22:00 UNV Tamsulosin HCl 0.4 mg QPM PO 11/02/24 18:00 UNV Aspirin 81 mg DAILY PO 11/03/24 10:00 UNV Laboratory Results Laboratory Tests 11/02/24 04:06 Chemistry Test 11/02/24 04:06 Albumin 3.0 g/dL (3.2-4.8) L Calcium Level 8.9 mg/dL (8.7-10.4) Magnesium Level 2.9 mg/dL (1.6-2.6) H Phosphorus Level 5.2 mg/dL (2.4-5.1) H Total Protein 6.7 g/dL (5.7-8.2) Cardiac Markers Test 11/02/24 04:06 B-Type Natriuretic Peptide 370.91 pg/mL (0-100) LFT Test 11/02/24 04:06 Alanine Aminotransferase (ALT) 22 U/L (7-40) Alkaline Phosphatase 166 U/L (46-116) H Aspartate Amino Transferase (AST) 25 U/L (13-40) Total Bilirubin 0.3 mg/dL (0.2-1.0) Urinalysis Test 11/02/24 11:53 Urine Color Yellow (Yellow) Urine Clarity Clear (Clear) Urine pH 6.0 (5.0-9.0) Urine Specific [place] 1.016 (1.001-1.035) Urine Protein 2+ (Negative) H Urine Ketones Negative (Negative) Urine Blood 1+ /uL (Negative) H Urine Nitrite Negative (Negative) Urine Bilirubin Negative (Negative) Urine Urobilinogen 3 mg/dL (Negative) H Urine Leukocyte Esterase Negative /uL (Negative) Urine RBC 2 /hpf (0 - 3) Urine Microscopic WBC 3 /HPF (0-3) Urine Squamous Epithelial Cells None seen /hpf (<5) Urine Bacteria None seen /hpf (None Seen) Urine Creatinine 72.48 mg/dL (30.0-125.0) Urine Protein/Creatinine Ratio 2.58 Urine Sodium 27 mmol/L (40-220) L Urine Glucose Normal mg/dL (Normal) Urine Total Protein 186.7 mg/dL (1-14) H Labs and/or images reviewed: Labs reviewed by me, Image(s) reviewed by me Assessment/Plan Assessment/Plan Impression: -coronary artery disease, status post bypass -primary hypertension -dyslipidemia -diabetes mellitus -nicotine dependence -CKD stage IIIB Plan: -events: assess patient to have severe weakness in bilateral lower extremities. Patient was ambulating prior to having his CABG. -continue postop meds -neurology consultation -CT scan of the head -regular insulin sliding scale -physical therapy consultation -O2 supplementation to keep saturation greater than 92% -bronchodilators -bladder training Total time spent with patient discussing and formulating plan of care: 35 minutes. This medical document was created using an electronic medical record system with [employer] dictation system. Although this document has been carefully reviewed, there may still be some phonetic and typographical errors. These areas are purely typographical due to imperfections of the software programs, and do not reflect any compromise in the patient's medical care. Plan discussed with: Patient, Spouse, Daughter, Other (RN) My Orders Orders - MARIA C DÍAZ [employer] Procedure Category Date Status Time Admit ADMIT 11/01/24 Transmitted 15:56 Nitroglycerin PHA 11/01/24 In Process Sublingual (Ntrostat 16:00 Morphine Sulfate PHA 11/01/24 In Process Injection 16:00 Stat Ekg For Chest DUGLAS 11/01/24 In Process Pain 15:56 Notify Md Of Changes DUGLAS 11/01/24 In Process From Base 15:56 Insemination Worker For DUGLAS 11/01/24 In Process 24 Hours 15:56 Emergency Dysrhythmia DUGLAS 11/01/24 In Process Protocol 15:56 Rhythm Strips Once DUGLAS 11/01/24 In Process Every Shift 15:56 Oxygen By Nasal RT 11/01/24 Transmitted Cannula 15:56 Chest Xray 1 View XY 11/02/24 Resulted 04:00 Pt Request For Service PT 11/02/24 Logged 04:00 Acetaminophen Tab Or PHA 11/01/24 In Process Cap (Tylenol Tablet 16:00 Ondansetron Hcl PHA 11/01/24 In Process (Zofran) 16:00 Docusate Sodium PHA 11/01/24 In Process Capsule (Colace 16:00 Albuterol Medneb PHA 11/01/24 In Process (Ventolin Medneb) 16:00 Ipratropium Medneb PHA 11/01/24 In Process (Atrovent Medneb) 16:00 Glucose Blood PHA 11/01/24 In Process (Accu-Chek Comfort 17:00 Insulin R (Human) PHA 11/01/24 In Process (Insulin R) 22:00 Insulin R (Human) PHA 11/01/24 In Process (Insulin R) 17:00 Dextrose 50% Syringe PHA 11/01/24 In Process 16:00 * Wound Consult CONS 11/01/24 Transmitted *Dr. Andrew Friedman CONS 11/02/24 Transmitted -[place] 08:[address] 11/02/24 Taken 14:49 Cholecalciferol PHA 11/02/24 Logged Tablet (Vitamin D3 15:30 * Neurology Consult CONS 11/02/24 Transmitted 15:30 Famotidine Tablet PHA 11/02/24 Logged (Pepcid Tablet) 22:00 Metoprolol Tartrate PHA 11/02/24 Logged Tablet (Lopressor Ta 22:00 Tamsulosin PHA 11/02/24 Logged Hydrochloride (Flomax) 18:00 Aspirin Tablet PHA 11/03/24 Logged 10:00 Alprazolam Tablet PHA 11/02/24 Verified (Xanax Tablet) 15:45 Date of Service: Nov 02, 2024 Billing Provider: MARIA C DÍAZ NP Common Visit Codes: [id number] INP/OBS CARE(HIGH) MARIA C DÍAZ NP Nov 02, 2024 15:36
--- NOTE | 2024-11-02 15:44 | DVH ---
Procedure: CT HEAD WITHOUT CONTRAST Study Date and Requested Time: 11/02/2024 03:01 PM History: Rule out post cabg cva Comparison: None Dose: CTDI: 64.84 mGy DLP: 1147.87 mGycm Technique: Multiplanar images obtained through the brain without intravenous contrast. Findings: Normal brain volume and formation. Hypodensity over the right lyles radiata. No hemorrhages, masses, mass effect, midline shift, herniation or cytotoxic edema following a large v ascular territory. No intra-axial or extra-axial fluid collections. No evidence of hydrocephalus. The basal cisterns are patent. The pituitary gland, sella and parasellar regions are unremarkable. The cerebellar tonsils are in nor mal position. The cerebellum is unremarkable. The orbits and globes are unremarkable. Mild mucoperiosteal thickening of the partially visualized ma xillary sinuses. Otherwise, the paranasal sinuses and mastoids are clear. There are no worrisome roney varial lesions. Impression: Hypodensity over the right lyles radiata which may represent an area of infarct of unknown chronicit y. MRI would be helpful for further evaluation.
[2024-11-02] MEDS: TAMSULOSIN HYDROCHLORIDE 0.4 MG CAP PO SCH (16:36)
[2024-11-02] MEDS: CHOLECALCIFEROL (VITD3) 1,000UNIT=25mCg TAB PO ONE (16:36)
[2024-11-02] MEDS: METOPROLOL TARTRATE 25 MG TAB PO SCH (21:30)
[2024-11-02] MEDS: FAMOTIDINE 20 MG TAB PO SCH (21:30)
[2024-11-02] MEDS: ALPRAZolam 0.25 MG TAB PO PRN (21:31)
--- NOTE | 2024-11-02 21:43 | DVHINCON2 ---
Date of service: Nov 02, 2024 Referring Physician Erwin Reason for Consultation Lower extremity weakness History of Present Illness Mr. Barker is a 59 years old right-handed gentleman with a history of hypertension, diabetes, coronary artery disease, heart attack, left ankle fracture with residual left leg weakness, he came to the [facility] on with a chief complaint of flu-like symptoms and dizziness for two months, in the hospital, the patient was found to have coronary artery disease and he was transferred to [facility] where he received three coronary artery bypass, but he was recovery was uneventful. Oriented time he was not allowed to move, or received therapy, only his and daughter moves his extremity in the bed On 11/01/2024, the patient was transferred back to [facility]. He relates that both leg are weaker after he returned to the [facility], he was thinks the left leg is weaker, but he attributed to the history of fracture. He denies neck pain or back pain, He does not know if he can control his bladder and bowel properly He has a pressure sore, he does not remember how long he has had it UDS, 10/12/2024: Negative Urinalysis, 11/02/2024: WBC: Three, urine leukocyte esterase: Negative WBC/HB/PLT/MCV, 11/02/24: 3.3/9.2/284/88.3 BUN/CR, 11/02/2024: 90/2.94 HGB A1c, 10/11/2024:6.6 Liver function tests, 11/02/2024: Unremarkable TG/HDL/LDL/HDL, 10/11/2024: 118/151/108/27 TSH, 10/11/2024: 1.07 Echocardiogram g, 10/11/2024: Normal left ventricular size and low-normal systolic function. Ejection fraction is estimated at 50-55%. Severe hypokinesis of the inferoposterior wall. Grade II diastolic dysfunction with evidence of elevated left-sided filling pressure. Normal right ventricular size and systolic function. Mildly dilated left atrial chamber size. No significant valvular disease. PA systolic pressure isn't adequately estimated. Small circumferential pericardial effusion. CT, 11/02/2024: Hypodensity over the right lyles radiata which may represent an area of infarct of unknown chronicity. MRI would be helpful for further evaluation. Past Medical History Hypertension, diabetes, coronary artery disease, heart attack Past Surgical History CABG Family History: FH: alcohol abuse G8 FATHER FHx: lung disease G8 FATHER Sepsis Suicide G8 MOTHER Family History Lung disease, alcohol problem Social History He smoked long time ago. He was no history of drug or alcohol abuse Allergies: Uncoded Allergies: Fish, ShellFish, Milk (Allergy, Unknown, 11/01/24) Home Meds Reported Medications Tamsulosin Hcl (Tamsulosin Hcl) 0.4 Mg Cap, 0.4 MG PO QPM for 30 Days, MG 11/02/24 Metoprolol Tartrate (Metoprolol Tartrate) 25 Mg Tab, 0.5 TAB PO BID, #180 TAB 1 Refill 11/02/24 Melatonin (KP MELATONIN) 3 Mg Tab, 1 TAB PO QPM, #30 TAB 2 Refills 11/02/24 Heparin Sodium (Porcine) (Heparin Sodium) 5,000 Unit/0.5 Ml Inj, 5000 UNIT IJ, INJ 11/02/24 Furosemide (Lasix) 20 Mg Tb, 1 TAB PO BID, #90 TAB 1 Refill 11/02/24 Famotidine (Famotidine) 20 Mg Tab, 20 MG PO BID for 30 Days, MG 11/02/24 Aspirin (Aspirin) 81 Mg Chw, 81 MG PO, TAB.CHEW 11/02/24 Atorvastatin Calcium (Lipitor) 80 Mg Tab, 1 TAB PO DAILY, #30 TAB 5 Refills 11/02/24 Metformin Hydrochloride (Metformin Hcl) 500 Mg Tab, 500 MG PO DAILY for 30 Days, MG 11/01/24 Atorvastatin Calcium (ATORVASTATIN CALCIUM) 10 Mg Tab, 10 MG PO DAILY, TAB 11/01/24 Lisinopril (Lisinopril) 10 Mg Tab, 1 TAB PO DAILY for 60 Days, #60 10/11/24 Current Medications Current Medications Medications (Trade) Dose Ordered Sig/Shavon Route PRN Reason Start Time Stop Time Status Last Admin Insulin Human Regular (InsuLIN R) HS SC 11/01/24 22:00 Tramadol HCl (Ultram) 50 mg Q6HP PRN PO SEVERE PAIN (7-10 PAIN SCALE) 11/01/24 23:00 11/02/24 19:32 Tramadol HCl (Ultram) 25 mg Q6HP PRN PO MODERATE PAIN (4-6 PAIN SCALE) 11/01/24 23:00 Hold Famotidine (Pepcid Tablet) 20 mg BID PO 11/02/24 22:00 Metoprolol Tartrate (Lopressor Tablet) 12.5 mg BID PO 11/02/24 22:00 Tamsulosin HCl (Flomax) 0.4 mg QPM PO 11/02/24 18:00 11/02/24 16:36 Aspirin 81 mg DAILY PO 11/03/24 10:00 Alprazolam (Xanax Tablet) 0.25 mg Q12HP PRN PO ANXIETY 11/02/24 15:45 Review of Systems As above, the other systems are negative Vital Signs Vital Signs Date Time Temp Pulse Resp B/P (MAP) Pulse Ox O2 Delivery O2 Flow Rate FiO2 11/02/24 21:00 99.0 78 17 129/69 (89) 93 99.0 11/02/24 19:00 Room Air* 0 21 Physical Exam GENERAL EXAM: General: the patient is well developed and nourished. No acute distress. HEENT: Normocephalic, neck is supple, no carotid bruits. No mass. RESPIRATORY: Normal respiratory effort with symmetrical lung expansion. Lungs clear to auscultation. CARDIOVASCULAR: Regular rate and rhythm with no murmurs. S1, S2. ABDOMEN: Soft, nontender, normal bowel sound NEUROLOGICAL: MENTAL STATUS: Awake and alert. Oriented to person, place, time and general circumstances. Able to give personal history SPEECH, LANGUAGE, HIGHER CORTICAL FUNCTION: no aphasia or dysathria. CRANIAL NERVES: #2: Intact visual light to confrontation. The optic discs were sharp. #3,4,6: Pupils are equal, round and reactive. EOMs full and conjugate. #5: Facial sensation intact in all three divisions bilaterally. Mandibular strength intact. #7: Facial muscles symmetrical and strength intact. #8: Hearing grossly normal to voice. #9,10: Uvula and soft palate rise in the midline. Swallow and voice are normal. #11: Trapezius and sternomastoid strength intact bilaterally. #12: Tongue midline. No fasciculations or atrophy. SENSATION: Sensation to touch and pinprick is normal. No sensory level MOTOR: Normal tone in the upper and lower extremity. Normal muscle bulk. No fasciculations. No abnormal movements or posturing. Muscle strength of the major groups in the upper extremities is 4-5/5. Muscle strength of the major groups in the lower extremities is 3-4/5. REFLEXES: Deep tendon reflexes are symmetrical. No pathological reflexes. CEREBELLAR/COORDINATION: Finger to nose is normal bilaterally. GAIT/STATION: deferred Labs/Diagnostic Data Labs Test 11/02/24 11:53 11/02/24 06:20 11/02/24 04:06 Range/Units Urine Color Yellow Yellow Urine Clarity Clear Clear Urine pH 6.0 5.0-9.0 Urine Specific [place] 1.016 1.001-1.035 Urine Protein 2+ H Negative Urine Ketones Negative Negative Urine Blood 1+ H Negative /uL Urine Nitrite Negative Negative Urine Bilirubin Negative Negative Urine Urobilinogen 3 H Negative mg/dL Urine Leukocyte Esterase Negative Negative /uL Urine RBC 2 0 - 3 /hpf Urine Microscopic WBC 3 0-3 /HPF Urine Squamous Epithelial Cells None seen <5 /hpf Urine Bacteria None seen None Seen /hpf Urine Creatinine 72.48 30.0-125.0 mg/dL Urine Protein/Creatinine Ratio 2.58 Urine Sodium 27 L 40-220 mmol/L Urine Glucose Normal Normal mg/dL Urine Total Protein 186.7 H 1-14 mg/dL POC Glucose 111 H 70-106 mg/dl White Blood Count 3.3 L 4.4-10.8 10^3/uL Red Blood Count 3.18 L 4.5-5.90 10^6/uL Hemoglobin 9.2 L 13.5-17.5 g/dL Hematocrit 28.1 L 41.0-53.0 % Mean Corpuscular Volume 88.3 80.0-100.0 fL Mean Corpuscular Hemoglobin 28.8 28.0-32.0 pg Mean Corpuscular Hemoglobin Concent 32.6 32.0-36.0 g/dL Red Cell Distribution Width 15.0 H 11.8-14.3 % Platelet Count 284 140-450 10^3/uL Mean Platelet Volume 9.6 6.9-10.8 fL Neutrophils (%) (Auto) 37.0-80.0 % Lymphocytes (%) (Auto) 10.0-50.0 % Monocytes (%) (Auto) 0.0-12.0 % Basophils (%) (Auto) 0.0-2.0 % Neutrophils # (Auto) 1.6-8.6 10 ^3/uL Lymphocytes # (Auto) 0.4-5.4 10 ^3/uL Monocytes # (Auto) 0-1.3 10 ^3/uL Differential Total Cells Counted 100.0 100 Neutrophils % (Manual) 40 37.0-80.0 Band Neutrophils % (Manual) 2 Lymphocytes % (Manual) 44 10.0-50.0 Monocytes % (Manual) 10 0-12 Eosinophils % (Manual) 4 0-7 Basophils % (Manual) 0 0.0-2.0 Metamyelocytes % (manual) 0 Myelocytes % (Manual) 0 Promyelocytes % (Manual) 0 Blast Cells % (Manual) 0 Reactive Lymphocytes 0 Platelet Estimate Adequate Sodium Level 133 L 136-145 mmol/L Potassium Level 4.9 3.5-5.1 mmol/L Chloride Level 98 98-107 mmol/L Carbon Dioxide Level 28 20-31 mmol/L Anion Gap 7 5-15 Blood Urea Nitrogen 90 *H 9-23 mg/dL Creatinine 2.94 H 0.700-1.30 mg/dL Glomerular Filtration Rate Calc 24 >90 mL/min BUN/Creatinine Ratio 30.6 H 10.0-20.0 Serum Glucose 112 H 74-106 mg/dL Uric Acid 9.0 3.7-9.2 mg/dL Calcium Level 8.9 8.7-10.4 mg/dL Phosphorus Level 5.2 H 2.4-5.1 mg/dL Magnesium Level 2.9 H 1.6-2.6 mg/dL Total Bilirubin 0.3 0.2-1.0 mg/dL Aspartate Amino Transferase (AST) 25 13-40 U/L Alanine Aminotransferase (ALT) 22 7-40 U/L Alkaline Phosphatase 166 H 46-116 U/L B-Type Natriuretic Peptide 370.91 0-100 pg/mL Total Protein 6.7 5.7-8.2 g/dL Albumin 3.0 L 3.2-4.8 g/dL Vitamin D 25-Hydroxy 12.1 L 30.0-100 ng/mL Parathyroid Hormone (Intact) 68.5 18.4-80.1 pg/mL Assessment Bilateral leg weakness, with abnormal CT brain ? Deconditioning ? Stroke Rule out myelopathy Pressure saw Heart attack status post CABG Plan/Recommendation Monitoring Supportive treatment Telemetry Carotid Doppler MRI brain scan MRI T-spine Aspirin 81 mg daily Lipitor 20 mg daily Wound care GI prophylaxis More recommendation per clinical course Progress: Poor This medical document was created using an electronic medical record system with [employer] computerized dictation system. Although this document has been carefully reviewed, there may still be some phonetic and typographical errors. These areas are purely typographical due to imperfections of the software programs, and do not reflect any compromise in the patient's medical care. Plan discussed with: Patient, Other NIKOLAS PRATT MD Nov 02, 2024 21:43
[2024-11-02] MEDS ORDERED: LORazepam 2MG/ML-1ML VIAL IV PRN (22:30)
--- NOTE | 2024-11-02 23:06 | DVH ---
Carotid Duplex Date: 11/02/2024 10:30 PM Clinical History: CVA Comparison: None Technique: Duplex Doppler evaluation of the extracranial carotid and vertebral arteries including color Doppler and spectral/pulsed waveform analysis was performed. Findings: RIGHT SIDE: The peak systolic velocities are 93 cm/s in the distal CCA and 89 cm/s in the proximal ICA.The ICA/CC A ratio is less than 2. The external carotid artery is patent with peak systolic velocity of 152 cm/s proximally. There is appropriate antegrade flow in the right vertebral artery, 62.3 cm/s LEFT SIDE: The peak systolic velocities are 111 cm/s in the distal CCA and 95 cm/s in the proximal ICA.. The IC A/CCA ratio is less than 1. The external carotid artery is patent with peak systolic velocity of 124 cm/s proximally. There is appropriate antegrade flow in the left vertebral artery, 59 cm/s IMPRESSION: 1. No hemodynamically significant stenosis noted in the right carotid system. 2. No hemodynamically significant stenosis noted in the left carotid system. 3. Reference: Radiology 2003; [id number] HS:Y
[2024-11-03] VITALS (11 sets, daily range): BP systolic 115–153; BP diastolic 62–76; PULSE 73–79; RESP 17–18; TEMP 97.3–99.2; O2SAT 92–97
[2024-11-03] MEDS: ASPirin 81 mg TAB PO SCH (10:08)
--- NOTE | 2024-11-03 10:38 | DVHPN2 ---
Progress Note Date Seen: Nov 03, 2024 Medical Necessity Reason Pt with a Central, PICC or Fol: No Subjective Patient reports: No new complaints Other Systems: Patient seen and examined by myself today in follow-up Objective vital signs Vital Sign Date Time Temp Pulse Resp B/P (MAP) Pulse Ox O2 Delivery O2 Flow Rate FiO2 11/03/24 10:09 77 141/71 11/03/24 09:00 97.3 18 93 97.3 11/02/24 20:00 Nasal Cannula* 2 28 Total Intake and Output 11/02/24 11/02/24 11/03/24 15:00 23:00 07:00 Intake Total 760 ml 850 ml Output Total 1200 ml 500 ml Balance -440 ml 350 ml medications Current Medications Medications Dose Ordered Sig/Shavon Route Start Time Stop Time Status Last Admin Dose Admin Nitroglycerin 0.4 mg Q5MINP PRN SL 11/01/24 16:00 Morphine Sulfate 2 mg Q30M PRN IV 11/01/24 16:00 Acetaminophen 500 mg Q8HP PRN PO 11/01/24 16:00 11/01/24 21:41 500 MG Ondansetron HCl 4 mg Q6HP PRN IV 11/01/24 16:00 Docusate Sodium 100 mg BID PRN PO 11/01/24 16:00 Albuterol 2.5 mg Q4HPRN PRN NEB 11/01/24 16:00 Ipratropium [place] 0.5 mg Q4HPRN PRN NEB 11/01/24 16:00 Diagnostic Test (Pha) 1 strip ACHS 11/01/24 17:00 11/03/24 10:13 1 STRIP Insulin Human Regular HS SC 11/01/24 22:00 Insulin Human Regular AC SC 11/01/24 17:00 11/03/24 10:21 3 UNITS Dextrose 50 ml UD PRN IV 11/01/24 16:00 Tramadol HCl 50 mg Q6HP PRN PO 11/01/24 23:00 11/02/24 19:32 50 MG Tramadol HCl 25 mg Q6HP PRN PO 11/01/24 23:00 Hold Famotidine 20 mg BID PO 11/02/24 22:00 11/03/24 10:08 20 MG Metoprolol Tartrate 12.5 mg BID PO 11/02/24 22:00 11/03/24 10:09 12.5 MG Tamsulosin HCl 0.4 mg QPM PO 11/02/24 18:00 11/02/24 16:36 0.4 MG Aspirin 81 mg DAILY PO 11/03/24 10:00 11/03/24 10:08 81 MG Alprazolam 0.25 mg Q12HP PRN PO 11/02/24 15:45 11/02/24 21:31 0.25 MG Lorazepam 1 mg ONCE PRN IV 11/02/24 22:30 Atorvastatin Calcium 20 mg HS PO 11/03/24 22:00 Examination: LUNGS:Normal, CVS:Normal, MSK:Normal laboratory and microbiology Laboratory Tests 11/02/24 04:06 Test 11/02/24 04:06 Range/Units Serum Glucose 112 H 74-106 mg/dL Problem List/Assessment/Plan Problem List/Assessment/Plan Acute kidney injury superimposed Chronic Kidney Disease secondary hemodynamic mediated CAD status post CABG Diabetes mellitus type 2 Chronic diastolic heart failure Hypertension Anemia of chronic kidney disease Nephrotic range proteinuria likely diabetic nephropathy Recommendations No labs done today Increased urine output Strict I&Os kidney ultrasound reported within normal limit Renal diet Blood pressure control Insulin sliding scale We will continue to follow Plan discussed with: Patient My Orders My Orders Orders - RITA SANDS MD Procedure Category Date Status Time Kidney US 11/02/24 Resulted 10:58 Renal Specific DIET 11/02/24 Transmitted Diet(Renal) Lunch RITA SANDS MD Nov 03, 2024 10:38
--- NOTE | 2024-11-03 14:09 | DVH ---
PROCEDURE: MRI THORACIC SPINE WITHOUT INDICATION: Myelopathy Exam Date: 11/03/2024 12:39 PM COMPARISON: None TECHNIQUE: Multiplanar and multisequence MRI thoracic spine without intravenous contrast. Comments: Limited evaluation on the axial view due to significant motion artifact. FINDINGS: The thoracic alignment is intact. The vertebral body heights are intact. Circumscribed T1 hyperintense focus in the T8 vertebral body likely represents a hemangioma. There ar e also a couple of small T1 hyperintense foci in the posterior elements which may represent focal mar row fat. No evidence of suspicious marrow replacement. No evidence of cord compression. The visualized cord is normal in caliber. There is mild central t2/ stir hyperintensity throughout the thoracic cord, most prominent from T9-T11. There is no significant posterior disc disease, central canal or neural foraminal narrowing. The visualized paraspinal soft tissues are unremarkable. Partial visualization of small bilateral ple ural effusions. IMPRESSION: Limited evaluation on the axial T2 series due to significant motion artifact. Within this limitation : 1. No evidence of spinal stenosis or cord compression. 2. Mild central T2/STIR signal in the cord is favored to represent mild prominence of the central can al; however, superimposed myelopathy is difficult to exclude. Consider interval follow-up imaging as clinically indicated. 3. Small bilateral pleural effusions. 4.
--- NOTE | 2024-11-03 14:19 | DVHPN2 ---
Reviewed: Care Plan, H&P, Labs, Medications, Previous Orders Changes from previous H/P or p: No Changes General: Per HPI Objective Vitals Vital Signs Date Time Temp Pulse Resp B/P (MAP) Pulse Ox O2 Delivery O2 Flow Rate FiO2 11/03/24 10:09 77 141/71 11/03/24 09:16 95 Room Air 0.0 11/03/24 09:16 21 11/03/24 09:00 97.3 18 97.3 Intake/Output Intake and Output 11/03/24 07:00 Intake Total 1610 ml Output Total 1700 ml Balance -90 ml Intake Oral 1610 ml Output Urine Total 1700 ml General Appearance: Alert, Oriented X3, Cooperative HEENT: Atraumatic Lungs: Clear to auscultation, Normal air movement Chest/Breasts: Other (Midline incision dry and intact) Cardiovascular: Normal S1, Normal S2 Abdomen: Normal bowel sounds, Soft Genitourinary: No Apparent Abnormalities (Jones catheter) Musculoskeletal: Normal sensory function, Normal motor function Neuro: Normal speech, Cranial nerves 3-12 NL, Other (Severe severe weakness to lower extremity) Psych/Mental Status: Mental status NL, Mood NL Medications Current Medications Medications Dose Ordered Sig/Shavon Route Start Time Stop Time Status Last Admin Dose Admin Nitroglycerin 0.4 mg Q5MINP PRN SL 11/01/24 16:00 Morphine Sulfate 2 mg Q30M PRN IV 11/01/24 16:00 Acetaminophen 500 mg Q8HP PRN PO 11/01/24 16:00 11/01/24 21:41 500 MG Ondansetron HCl 4 mg Q6HP PRN IV 11/01/24 16:00 Docusate Sodium 100 mg BID PRN PO 11/01/24 16:00 Albuterol 2.5 mg Q4HPRN PRN NEB 11/01/24 16:00 Ipratropium [place] 0.5 mg Q4HPRN PRN NEB 11/01/24 16:00 Diagnostic Test (Pha) 1 strip ACHS 11/01/24 17:00 11/03/24 10:13 1 STRIP Insulin Human Regular HS SC 11/01/24 22:00 Insulin Human Regular AC SC 11/01/24 17:00 11/03/24 10:21 3 UNITS Dextrose 50 ml UD PRN IV 11/01/24 16:00 Tramadol HCl 50 mg Q6HP PRN PO 11/01/24 23:00 11/02/24 19:32 50 MG Tramadol HCl 25 mg Q6HP PRN PO 11/01/24 23:00 Hold Famotidine 20 mg BID PO 11/02/24 22:00 11/03/24 10:08 20 MG Metoprolol Tartrate 12.5 mg BID PO 11/02/24 22:00 11/03/24 10:09 12.5 MG Tamsulosin HCl 0.4 mg QPM PO 11/02/24 18:00 11/02/24 16:36 0.4 MG Aspirin 81 mg DAILY PO 11/03/24 10:00 11/03/24 10:08 81 MG Alprazolam 0.25 mg Q12HP PRN PO 11/02/24 15:45 11/02/24 21:31 0.25 MG Lorazepam 1 mg ONCE PRN IV 11/02/24 22:30 Atorvastatin Calcium 20 mg HS PO 11/03/24 22:00 Laboratory Results Laboratory Tests 11/02/24 04:06 Urinalysis Test 11/02/24 11:53 Urine Color Yellow (Yellow) Urine Clarity Clear (Clear) Urine pH 6.0 (5.0-9.0) Urine Specific [place] 1.016 (1.001-1.035) Urine Protein 2+ (Negative) H Urine Ketones Negative (Negative) Urine Blood 1+ /uL (Negative) H Urine Nitrite Negative (Negative) Urine Bilirubin Negative (Negative) Urine Urobilinogen 3 mg/dL (Negative) H Urine Leukocyte Esterase Negative /uL (Negative) Urine RBC 2 /hpf (0 - 3) Urine Microscopic WBC 3 /HPF (0-3) Urine Squamous Epithelial Cells None seen /hpf (<5) Urine Bacteria None seen /hpf (None Seen) Urine Creatinine 72.48 mg/dL (30.0-125.0) Urine Protein/Creatinine Ratio 2.58 Urine Sodium 27 mmol/L (40-220) L Urine Glucose Normal mg/dL (Normal) Urine Total Protein 186.7 mg/dL (1-14) H Assessment/Plan Assessment/Plan The patient is a 59-year-old male transferred back from [facility] after undergoing coronary artery bypass grafting x3. Patient was significant history diabetes mellitus, nicotine dependence, dyslipidemia, and chronic kidney disease. Postoperatively, the patient's recovery was uneventful. Patient was transferred back to [facility] for purposes of repatriation post surgery. Impression: -coronary artery disease, status post bypass -primary hypertension -dyslipidemia -diabetes mellitus -nicotine dependence -CKD stage IIIB Plan: -events: assess patient to have severe weakness in bilateral lower extremities. Patient was ambulating prior to having his CABG. -continue postop meds -neurology consultation -CT scan of the head -regular insulin sliding scale -physical therapy consultation -O2 supplementation to keep saturation greater than 92% -bronchodilators -bladder training Total time spent with patient discussing and formulating plan of care: 35 minutes. Plan discussed with: Patient Date of Service: Nov 03, 2024 Billing Provider: AKILAH MI DO Common Visit Codes: [id number] INP/OBS CARE(HIGH) AKILAH MI DO Nov 03, 2024 14:19
--- NOTE | 2024-11-03 15:44 | DVH ---
PROCEDURE: MRI BRAIN HEAD WO CONTRAST INDICATION: CVA EXAM DATE: 11/03/2024 12:22 PM COMPARISON: None TECHNIQUE: MRI of the brain without intravenous contrast. FINDINGS: Diffusion weighted images of the brain demonstrate punctate foci of diffusion restriction involving t he bilateral lyles radiata and centrum semiovale. There prominent diffusion restriction also seen wi thin the genu and anterior body of the corpus callosum. There is an apparent punctate additional focu s of diffusion restriction in the medulla (series 6, image 3). There are scattered white matter T2/FL AIR hyperintense foci, many of which correlating with the foci of diffusion restriction. There is no evidence of acute intracranial hemorrhage, extra-axial collection, mass effect, midline s hift, herniation or hydrocephalus. The ventricles, sulci and cisterns appear age appropriate. There are no signal abnormalities on the susceptibility weighted sequences. The major vascular flow voids are present. Mild mucosal thickening in the paranasal sinuses. Trace fluid signal in the mastoids. The surrounding soft tissues and osseous structures are unremarkable. IMPRESSION: Scattered punctate foci of acute ischemia involving bilateral cerebral white matter, corpus callosum, and the medulla. This distribution may be secondary to embolic and/or watershed ischemia. Critical Result: Stroke Alert Findings discussed with VIJAY Ardon, at 11/03/2024 03:40 PM, and acknowledged receipt and understanding of the findings. ..
[2024-11-03] MEDS: ATORVASTATIN 20 MG TAB PO SCH (21:28)
[2024-11-03] MEDS: APIXABAN 5 MG TAB PO SCH (22:00)
[2024-11-04] VITALS (10 sets, daily range): BP systolic 95–128; BP diastolic 52–63; PULSE 70–84; RESP 16–20; TEMP 97.3–102.9; O2SAT 90–98
[2024-11-04 06:04] LABS: Alanine Aminotransferase 23 U/L (7-40); Anion Gap 7 (5-15); Aspartate Aminotransferase 26 U/L (13-40); BUN/Creatinine Ratio 32.6 (10.0-20.0); Calcium 8.9 mg/dL (8.7-10.4); Carbon Dioxide 29 mmol/L (20-31); Potassium 4.8 mmol/L (3.5-5.1)
[2024-11-04 06:05] LABS: Bilirubin, Total 0.4 mg/dL (0.2-1.0); Total Protein 6.4 g/dL (5.7-8.2)
[2024-11-04 06:08] LABS: Albumin 2.9 g/dL (3.2-4.8); Alkaline Phosphatase 139 U/L (46-116); Blood Urea Nitrogen 74 mg/dL (9-23); Chloride 98 mmol/L (98-107); Glucose 114 mg/dL (74-106); Sodium 134 mmol/L (136-145)
[2024-11-04] MEDS: DOCUSATE SOD 100 MG CAP PO PRN (11:08)
--- NOTE | 2024-11-04 11:17 | DVHPN2 ---
Progress Note Date Seen: Nov 04, 2024 Medical Necessity Reason Pt with a Central, PICC or Fol: No Subjective Patient reports: No new complaints Other Systems: Patient seen and examined by myself today in follow-up Objective vital signs Vital Sign Date Time Temp Pulse Resp B/P (MAP) Pulse Ox O2 Delivery O2 Flow Rate FiO2 11/04/24 11:08 70 128/57 11/04/24 09:00 97.3 16 90 97.3 11/04/24 08:10 Nasal Cannula* 1 24 Total Intake and Output 11/03/24 11/03/24 11/04/24 15:00 23:00 07:00 Intake Total 200 ml 1500 ml Output Total 700 ml 900 ml 650 ml Balance -700 ml -700 ml 850 ml medications Current Medications Medications Dose Ordered Sig/Shavon Route Start Time Stop Time Status Last Admin Dose Admin Nitroglycerin 0.4 mg Q5MINP PRN SL 11/01/24 16:00 Morphine Sulfate 2 mg Q30M PRN IV 11/01/24 16:00 Acetaminophen 500 mg Q8HP PRN PO 11/01/24 16:00 11/04/24 00:31 500 MG Ondansetron HCl 4 mg Q6HP PRN IV 11/01/24 16:00 Docusate Sodium 100 mg BID PRN PO 11/01/24 16:00 11/04/24 11:08 100 MG Albuterol 2.5 mg Q4HPRN PRN NEB 11/01/24 16:00 Ipratropium [place] 0.5 mg Q4HPRN PRN NEB 11/01/24 16:00 Diagnostic Test (Pha) 1 strip ACHS 11/01/24 17:00 11/04/24 11:09 1 STRIP Insulin Human Regular HS SC 11/01/24 22:00 11/03/24 22:00 2 UNITS Insulin Human Regular AC SC 11/01/24 17:00 11/03/24 18:04 2 UNITS Dextrose 50 ml UD PRN IV 11/01/24 16:00 Tramadol HCl 50 mg Q6HP PRN PO 11/01/24 23:00 11/03/24 15:31 50 MG Tramadol HCl 25 mg Q6HP PRN PO 11/01/24 23:00 Hold Famotidine 20 mg BID PO 11/02/24 22:00 11/04/24 11:08 20 MG Metoprolol Tartrate 12.5 mg BID PO 11/02/24 22:00 11/04/24 11:08 12.5 MG Tamsulosin HCl 0.4 mg QPM PO 11/02/24 18:00 11/03/24 17:53 0.4 MG Aspirin 81 mg DAILY PO 11/03/24 10:00 11/04/24 11:08 81 MG Alprazolam 0.25 mg Q12HP PRN PO 11/02/24 15:45 11/04/24 02:35 0.25 MG Lorazepam 1 mg ONCE PRN IV 11/02/24 22:30 Atorvastatin Calcium 20 mg HS PO 11/03/24 22:00 11/03/24 21:28 20 MG Apixaban 10 mg BID PO 11/03/24 22:00 11/10/24 10:01 11/04/24 11:08 10 MG Examination: LUNGS:Normal, CVS:Normal, MSK:Normal laboratory and microbiology Laboratory Tests 11/04/24 05:24 11/02/24 04:06 Test 11/04/24 05:24 Range/Units Serum Glucose 114 H 74-106 mg/dL Problem List/Assessment/Plan Problem List/Assessment/Plan Acute kidney injury superimposed Chronic Kidney Disease secondary hemodynamic mediated CAD status post CABG Diabetes mellitus type 2 Chronic diastolic heart failure Hypertension Anemia of chronic kidney disease Nephrotic range proteinuria likely diabetic nephropathy Recommendations Kidney function continue to improve Increased urine output Strict I&Os kidney ultrasound reported within normal limit Renal diet Blood pressure control Insulin sliding scale I will sign off this case please refer to my office in two weeks after discharge for Chronic Kidney Disease follow-up Thank you for the kind Plan discussed with: Patient Dietary Evaluation Review Comments: 1) Continue to promote good PO intake 2) Jose L NOT recommended d/t low GFR - continue to monitor skin interity 3) Continue plan of care Expected Outcomes/Goals: 1) appetite and labs to improve 2) wound to improve 3) f/u in 3 days RITA SANDS MD Nov 04, 2024 11:17
--- NOTE | 2024-11-04 12:44 | DVHPN2 ---
Reviewed: Care Plan, H&P, Labs, Medications, Previous Orders Changes from previous H/P or p: No Changes General: Per HPI Objective Vitals Vital Signs Date Time Temp Pulse Resp B/P (MAP) Pulse Ox O2 Delivery O2 Flow Rate FiO2 11/04/24 11:08 70 128/57 11/04/24 09:00 97.3 16 90 97.3 11/04/24 08:10 Nasal Cannula* 1 24 Intake/Output Intake and Output 11/04/24 07:00 Intake Total 1700 ml Output Total 2250 ml Balance -550 ml Intake Oral 1700 ml Output Urine Total 2250 ml General Appearance: Alert, Oriented X3, Cooperative HEENT: Atraumatic Lungs: Clear to auscultation, Normal air movement Chest/Breasts: Other (Midline incision dry and intact) Cardiovascular: Normal S1, Normal S2 Abdomen: Normal bowel sounds, Soft Genitourinary: No Apparent Abnormalities (Jones catheter) Musculoskeletal: Normal sensory function, Normal motor function Neuro: Normal speech, Cranial nerves 3-12 NL, Other (Severe severe weakness to lower extremity) Psych/Mental Status: Mental status NL, Mood NL Medications Current Medications Medications Dose Ordered Sig/Shavon Route Start Time Stop Time Status Last Admin Dose Admin Nitroglycerin 0.4 mg Q5MINP PRN SL 11/01/24 16:00 Morphine Sulfate 2 mg Q30M PRN IV 11/01/24 16:00 Acetaminophen 500 mg Q8HP PRN PO 11/01/24 16:00 11/04/24 00:31 500 MG Ondansetron HCl 4 mg Q6HP PRN IV 11/01/24 16:00 Docusate Sodium 100 mg BID PRN PO 11/01/24 16:00 11/04/24 11:08 100 MG Albuterol 2.5 mg Q4HPRN PRN NEB 11/01/24 16:00 Ipratropium [place] 0.5 mg Q4HPRN PRN NEB 11/01/24 16:00 Diagnostic Test (Pha) 1 strip ACHS 11/01/24 17:00 11/04/24 11:09 1 STRIP Insulin Human Regular HS SC 11/01/24 22:00 11/03/24 22:00 2 UNITS Insulin Human Regular AC SC 11/01/24 17:00 11/04/24 11:51 2 UNITS Dextrose 50 ml UD PRN IV 11/01/24 16:00 Tramadol HCl 50 mg Q6HP PRN PO 11/01/24 23:00 11/03/24 15:31 50 MG Tramadol HCl 25 mg Q6HP PRN PO 11/01/24 23:00 Hold Famotidine 20 mg BID PO 11/02/24 22:00 11/04/24 11:08 20 MG Metoprolol Tartrate 12.5 mg BID PO 11/02/24 22:00 11/04/24 11:08 12.5 MG Tamsulosin HCl 0.4 mg QPM PO 11/02/24 18:00 11/03/24 17:53 0.4 MG Aspirin 81 mg DAILY PO 11/03/24 10:00 11/04/24 11:08 81 MG Alprazolam 0.25 mg Q12HP PRN PO 11/02/24 15:45 11/04/24 02:35 0.25 MG Lorazepam 1 mg ONCE PRN IV 11/02/24 22:30 Atorvastatin Calcium 20 mg HS PO 11/03/24 22:00 11/03/24 21:28 20 MG Apixaban 10 mg BID PO 11/03/24 22:00 11/10/24 10:01 11/04/24 11:08 10 MG Laboratory Results Laboratory Tests 11/02/24 04:06 11/04/24 05:24 Chemistry Test 11/04/24 05:24 Albumin 2.9 g/dL (3.2-4.8) L Calcium Level 8.9 mg/dL (8.7-10.4) Total Protein 6.4 g/dL (5.7-8.2) LFT Test 11/04/24 05:24 Alanine Aminotransferase (ALT) 23 U/L (7-40) Alkaline Phosphatase 139 U/L (46-116) H Aspartate Amino Transferase (AST) 26 U/L (13-40) Total Bilirubin 0.4 mg/dL (0.2-1.0) Urinalysis Test 11/02/24 11:53 Urine Color Yellow (Yellow) Urine Clarity Clear (Clear) Urine pH 6.0 (5.0-9.0) Urine Specific [place] 1.016 (1.001-1.035) Urine Protein 2+ (Negative) H Urine Ketones Negative (Negative) Urine Blood 1+ /uL (Negative) H Urine Nitrite Negative (Negative) Urine Bilirubin Negative (Negative) Urine Urobilinogen 3 mg/dL (Negative) H Urine Leukocyte Esterase Negative /uL (Negative) Urine RBC 2 /hpf (0 - 3) Urine Microscopic WBC 3 /HPF (0-3) Urine Squamous Epithelial Cells None seen /hpf (<5) Urine Bacteria None seen /hpf (None Seen) Urine Creatinine 72.48 mg/dL (30.0-125.0) Urine Protein/Creatinine Ratio 2.58 Urine Sodium 27 mmol/L (40-220) L Urine Glucose Normal mg/dL (Normal) Urine Total Protein 186.7 mg/dL (1-14) H Assessment/Plan Assessment/Plan The patient is a 59-year-old male transferred back from [facility] after undergoing coronary artery bypass grafting x3. Patient was significant history diabetes mellitus, nicotine dependence, dyslipidemia, and chronic kidney disease. Postoperatively, the patient's recovery was uneventful. Patient was transferred back to [facility] for purposes of repatriation post surgery. Impression: -coronary artery disease, status post bypass -primary hypertension -dyslipidemia -diabetes mellitus -nicotine dependence -CKD stage IIIB Plan: -events: assess patient to have severe weakness in bilateral lower extremities. Patient was ambulating prior to having his CABG. -continue postop meds -neurology consultation -CT scan of the head -regular insulin sliding scale -physical therapy consultation -O2 supplementation to keep saturation greater than 92% -bronchodilators -bladder training Total time spent with patient discussing and formulating plan of care: 35 minutes. Plan discussed with: Other (nusing staff) My Orders Orders - AKILAH MI DO Procedure Category Date Status Time Apixaban (Eliquis) PHA 11/03/24 In Process 22:00 *Tele Psych Consult CONS 11/03/24 Transmitted 17:49 Date of Service: Nov 04, 2024 Billing Provider: AKILAH MI DO Common Visit Codes: [id number] INP/OBS CARE(HIGH) AKILAH MI DO Nov 04, 2024 12:44
--- NOTE | 2024-11-04 14:24 | DVHINCON2 ---
Date of service: Nov 04, [address] Ismael Storm Reason for Consultation Medication management. History of Present Illness Chief complaint: "For heart surgery". History of present illness: This is a 59-year-old male who was seen for evaluation via telepsychiatry. Patient denied feeling depressed. He reported having trouble sleeping and his appetite is decreased. He reported feeling worthless to the family. He denied any suicidal or homicidal ideation. as per nursing staff patient has been experienced some auditory and visual hallucination. Past psychiatric history: Patient denied any inpatient psychiatric hospitalization. He denied any suicide attempts in the past. Past Medical History As per history and physical. Past Surgical History As per history and physical. Family History: FH: alcohol abuse G8 FATHER FHx: lung disease G8 FATHER Sepsis Suicide G8 MOTHER Family History Denied any family history of any psychiatric illness. Social History Patient is and has three children. 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 Substance use: Denied Allergies: Uncoded Allergies: Fish, ShellFish, Milk (Allergy, Unknown, 11/01/24) Home Meds Reported Medications Tamsulosin Hcl (Tamsulosin Hcl) 0.4 Mg Cap, 0.4 MG PO QPM for 30 Days, MG 11/02/24 Metoprolol Tartrate (Metoprolol Tartrate) 25 Mg Tab, 0.5 TAB PO BID, #180 TAB 1 Refill 11/02/24 Melatonin (KP MELATONIN) 3 Mg Tab, 1 TAB PO QPM, #30 TAB 2 Refills 11/02/24 Heparin Sodium (Porcine) (Heparin Sodium) 5,000 Unit/0.5 Ml Inj, 5000 UNIT IJ, INJ 11/02/24 Furosemide (Lasix) 20 Mg Tb, 1 TAB PO BID, #90 TAB 1 Refill 11/02/24 Famotidine (Famotidine) 20 Mg Tab, 20 MG PO BID for 30 Days, MG 11/02/24 Aspirin (Aspirin) 81 Mg Chw, 81 MG PO, TAB.CHEW 11/02/24 Atorvastatin Calcium (Lipitor) 80 Mg Tab, 1 TAB PO DAILY, #30 TAB 5 Refills 11/02/24 Metformin Hydrochloride (Metformin Hcl) 500 Mg Tab, 500 MG PO DAILY for 30 Days, MG 11/01/24 Atorvastatin Calcium (ATORVASTATIN CALCIUM) 10 Mg Tab, 10 MG PO DAILY, TAB 11/01/24 Lisinopril (Lisinopril) 10 Mg Tab, 1 TAB PO DAILY for 60 Days, #60 10/11/24 Current Medications Current Medications Medications (Trade) Dose Ordered Sig/Shavon Route PRN Reason Start Time Stop Time Status Last Admin Atorvastatin Calcium (Lipitor) 20 mg HS PO 11/03/24 22:00 11/03/24 21:28 Apixaban (Eliquis) 10 mg BID PO 11/03/24 22:00 11/10/24 10:01 11/04/24 11:08 Review of Systems Review of systems is negative except HPI. Vital Signs Vital Signs Date Time Temp Pulse Resp B/P (MAP) Pulse Ox O2 Delivery O2 Flow Rate FiO2 11/04/24 11:08 70 128/57 11/04/24 09:00 97.3 16 90 97.3 11/04/24 08:10 Nasal Cannula* 1 24 Physical Exam Mental status examination: This is a 59-year-old male who appears to be of his stated age. His grooming is marginal. His eye contact is limited. His speech is soft and attempts hard to understand. He described his mood as "I am good" and his affect is restricted. He denied any suicidal or homicidal ideation. He denied any current auditory or visual hallucination. His thought processes slightly disorganized with some thought blocking. He is oriented to place, person and year. His attention and concentration impaired. His memory and language impaired. His judgment insight is limited. His impulse control is fair. His fund of knowledge is intact. Labs/Diagnostic Data Labs Test 11/04/24 11:11 11/04/24 05:24 11/02/24 11:53 11/02/24 04:06 Range/Units POC Glucose 137 H 70-106 mg/dl Sodium Level 134 L 136-145 mmol/L Potassium Level 4.8 3.5-5.1 mmol/L Chloride Level 98 98-107 mmol/L Carbon Dioxide Level 29 20-31 mmol/L Anion Gap 7 5-15 Blood Urea Nitrogen 74 H 9-23 mg/dL Creatinine 2.27 H 0.700-1.30 mg/dL Glomerular Filtration Rate Calc 32 >90 mL/min BUN/Creatinine Ratio 32.6 H 10.0-20.0 Serum Glucose 114 H 74-106 mg/dL Calcium Level 8.9 8.7-10.4 mg/dL Total Bilirubin 0.4 0.2-1.0 mg/dL Aspartate Amino Transferase (AST) 26 13-40 U/L Alanine Aminotransferase (ALT) 23 7-40 U/L Alkaline Phosphatase 139 H 46-116 U/L Total Protein 6.4 5.7-8.2 g/dL Albumin 2.9 L 3.2-4.8 g/dL Urine Color Yellow Yellow Urine Clarity Clear Clear Urine pH 6.0 5.0-9.0 Urine Specific [place] 1.016 1.001-1.035 Urine Protein 2+ H Negative Urine Ketones Negative Negative Urine Blood 1+ H Negative /uL Urine Nitrite Negative Negative Urine Bilirubin Negative Negative Urine Urobilinogen 3 H Negative mg/dL Urine Leukocyte Esterase Negative Negative /uL Urine RBC 2 0 - 3 /hpf Urine Microscopic WBC 3 0-3 /HPF Urine Squamous Epithelial Cells None seen <5 /hpf Urine Bacteria None seen None Seen /hpf Urine Creatinine 72.48 30.0-125.0 mg/dL Urine Protein/Creatinine Ratio 2.58 Urine Sodium 27 L 40-220 mmol/L Urine Glucose Normal Normal mg/dL Urine Total Protein 186.7 H 1-14 mg/dL White Blood Count 3.3 L 4.4-10.8 10^3/uL Red Blood Count 3.18 L 4.5-5.90 10^6/uL Hemoglobin 9.2 L 13.5-17.5 g/dL Hematocrit 28.1 L 41.0-53.0 % Mean Corpuscular Volume 88.3 80.0-100.0 fL Mean Corpuscular Hemoglobin 28.8 28.0-32.0 pg Mean Corpuscular Hemoglobin Concent 32.6 32.0-36.0 g/dL Red Cell Distribution Width 15.0 H 11.8-14.3 % Platelet Count 284 140-450 10^3/uL Mean Platelet Volume 9.6 6.9-10.8 fL Neutrophils (%) (Auto) 37.0-80.0 % Lymphocytes (%) (Auto) 10.0-50.0 % Monocytes (%) (Auto) 0.0-12.0 % Basophils (%) (Auto) 0.0-2.0 % Neutrophils # (Auto) 1.6-8.6 10 ^3/uL Lymphocytes # (Auto) 0.4-5.4 10 ^3/uL Monocytes # (Auto) 0-1.3 10 ^3/uL Differential Total Cells Counted 100.0 100 Neutrophils % (Manual) 40 37.0-80.0 Band Neutrophils % (Manual) 2 Lymphocytes % (Manual) 44 10.0-50.0 Monocytes % (Manual) 10 0-12 Eosinophils % (Manual) 4 0-7 Basophils % (Manual) 0 0.0-2.0 Metamyelocytes % (manual) 0 Myelocytes % (Manual) 0 Promyelocytes % (Manual) 0 Blast Cells % (Manual) 0 Reactive Lymphocytes 0 Platelet Estimate Adequate Uric Acid 9.0 3.7-9.2 mg/dL Phosphorus Level 5.2 H 2.4-5.1 mg/dL Magnesium Level 2.9 H 1.6-2.6 mg/dL B-Type Natriuretic Peptide 370.91 0-100 pg/mL Vitamin D 25-Hydroxy 12.1 L 30.0-100 ng/mL Parathyroid Hormone (Intact) 68.5 18.4-80.1 pg/mL Assessment Patient with a diagnosis of psychotic disorder not otherwise specified rule out delirium. Plan/Recommendation I will start him on Zyprexa 2.5 mg p.o. t.i.d. p.r.n. for psychosis. Care was coordinated with the patient and his the cerebral RN. Plan discussed with: Patient DAMIEN SHUKLA MD Nov 04, 2024 14:24
[2024-11-04] MEDS: OLANZapine 5 MG TAB PO PRN (22:00)
[2024-11-04] MEDS: ATORVASTATIN 20 MG TAB PO SCH (22:00)
--- NOTE | 2024-11-04 23:25 | BSKYNEURO ---
[place] [facility] Note # Demographics Consult Type: Acute Stroke Level 2 (4.5-24 hrs) Patient Location: Inpatient First Name: Wolfgang Last Name: Mj Date of : 1965 Age: 59 Gender: Male Facility: [facility] Time of Initial Page (): 11/04/2024 21:36 Time of Return Call (): 11/04/2024 21:37 # HPI History: Patient is currently admitted for CABG 10/11/24 (done at [facility]); he is currently post surgery. Patient is noted to have weakness of leg He is currently on Apixiban # Scores Time of exam and NIHSS (): 11/04/2024 22:08 Level of Consciousness 1a: [0] = Alert; keenly responsive LOC Questions 1b: [0] = Answers both questions correctly LOC Commands 1c: [0] = Performs both tasks correctly Best Gaze 2: [0] = Normal Visual 3: [0] = No visual loss Facial Palsy 4: [0] = Normal symmetrical movements Motor Arm Left 5a: [0] = No drift Motor Arm Right 5b: [1] = Drift Motor Leg Left 6a: [1] = Drift Motor Leg Right 6b: [2] = Some effort against gravity Limb Ataxia 7: [0] = Absent Sensory 8: [0] = Normal Best Language 9: [0] = No aphasia Dysarthria 10: [0] = Normal Extinction and Inattention 11: [0] = No abnormality NIHSS Total: 4 # Assessment Impression: - Ischemic Stroke (Subacute) +MRI brain shows scattered punctate foci of acute ischemia involving bilateral cerebral white matter, corpus callosum, and the medulla. # Plan Thrombolytic/Intervention: NOT IV Thrombolysis or IA Intervention candidate Thrombolytic Exclusion: > 4.5 hours Intraarterial Exclusion: - no large vessel occlusion (LVO) Labs: - hemoglobin A1c - lipid panel - comprehensive metabolic panel - CBC Diagnostic Test: - echo with bubble study Therapy/Evaluation: - NPO until swallow evaluation - PT/OT evaluation Medication: - start statin with goal of LDL < 70 - anticoagulation with NOAC Other: - If patient has any neurological deterioration please call me back immediately - LDL < 70 - telemetry monitoring - neurology referral as outpatient - I have discussed my recommendations with the referring provider - will need event monitor or loop recorder as outpatient if atrial fibrillation not found as inpatient Disposition: continue admission # Logistics Attestation of consult completion: The patient is located at: [facility]. Facility staff participated in the visit. I performed this telemedicine visit from my offsite office utilizing interactive 2 way audio and visual telecommunication technology. Total time spent in telemedicine encounter: I spent 10 minutes reviewing clinical data and/or imaging, obtaining history, examining the patient, communicating with the onsite care team, and in preparation of this report. # Demographics First Name: Wolfgang Last Name: Mj Facility: [facility] Yes MANNY NO MD Nov 04, 2024 23:25
[2024-11-05] VITALS (10 sets, daily range): BP systolic 102–119; BP diastolic 57–67; PULSE 65–76; RESP 16–20; TEMP 97.9–99.3; O2SAT 87–100
--- NOTE | 2024-11-05 11:14 | DVHPN2 ---
Subjective Continues to complain of severe weakness in lower extremities Reviewed: Care Plan, H&P, Labs, Medications, Previous Orders Changes from previous H/P or p: No Changes General: Per HPI Eyes: No Pain, No Vision change, No Conjunctivae inflammation, No Eyelid inflammation, No Other, No Redness ENT: No Ear pain, No Ear discharge, No Nose pain, No Nose discharge, No Nose congestion, No Mouth pain, No Mouth swelling, No Throat pain, No Throat swelling, No Other Gastrointestinal: No Nausea, No Vomiting, No Abdominal Pain, No Diarrhea, No Constipation, No Melena, No Hematochezia, No Other Musculoskeletal: other (BLE leg weakness) Skin: No Rash, No Lesions, No Jaundice, No Bruising, No Other Objective Vitals Vital Signs Date Time Temp Pulse Resp B/P (MAP) Pulse Ox O2 Delivery O2 Flow Rate FiO2 11/05/24 09:34 73 103/64 11/05/24 09:00 97.9 16 93 97.9 11/05/24 08:00 Room Air* 0 N/A Nasal Cannula* Intake/Output Intake and Output 11/05/24 07:00 Intake Total 500 ml Output Total 1900 ml Balance -1400 ml Intake Oral 500 ml Output Urine Total 1900 ml General Appearance: Alert, Oriented X3, Cooperative HEENT: Atraumatic Lungs: Clear to auscultation, Normal air movement Chest/Breasts: Other (Midline incision dry and intact) Cardiovascular: Normal S1, Normal S2 Abdomen: Normal bowel sounds, Soft Genitourinary: No Apparent Abnormalities (Jones catheter) Musculoskeletal: Normal sensory function, Normal motor function Neuro: Normal speech, Cranial nerves 3-12 NL, Other (Severe severe weakness to lower extremity) Psych/Mental Status: Mental status NL, Mood NL Medications Current Medications Medications Dose Ordered Sig/Shavon Route Start Time Stop Time Status Last Admin Dose Admin Nitroglycerin 0.4 mg Q5MINP PRN SL 11/01/24 16:00 Morphine Sulfate 2 mg Q30M PRN IV 11/01/24 16:00 Acetaminophen 500 mg Q8HP PRN PO 11/01/24 16:00 11/04/24 00:31 500 MG Ondansetron HCl 4 mg Q6HP PRN IV 11/01/24 16:00 Docusate Sodium 100 mg BID PRN PO 11/01/24 16:00 11/04/24 11:08 100 MG Albuterol 2.5 mg Q4HPRN PRN NEB 11/01/24 16:00 Ipratropium [place] 0.5 mg Q4HPRN PRN NEB 11/01/24 16:00 Diagnostic Test (Pha) 1 strip ACHS 11/01/24 17:00 11/05/24 06:12 1 STRIP Insulin Human Regular HS SC 11/01/24 22:00 11/04/24 22:19 2 UNITS Insulin Human Regular AC SC 11/01/24 17:00 11/04/24 18:32 2 UNITS Dextrose 50 ml UD PRN IV 11/01/24 16:00 Tramadol HCl 50 mg Q6HP PRN PO 11/01/24 23:00 11/05/24 05:05 50 MG Tramadol HCl 25 mg Q6HP PRN PO 11/01/24 23:00 Hold Famotidine 20 mg BID PO 11/02/24 22:00 11/05/24 09:33 20 MG Metoprolol Tartrate 12.5 mg BID PO 11/02/24 22:00 11/05/24 09:34 12.5 MG Tamsulosin HCl 0.4 mg QPM PO 11/02/24 18:00 11/04/24 18:12 0.4 MG Aspirin 81 mg DAILY PO 11/03/24 10:00 11/05/24 09:33 81 MG Alprazolam 0.25 mg Q12HP PRN PO 11/02/24 15:45 11/04/24 02:35 0.25 MG Lorazepam 1 mg ONCE PRN IV 11/02/24 22:30 Apixaban 10 mg BID PO 11/03/24 22:00 11/10/24 10:01 11/05/24 09:33 10 MG Olanzapine 2.5 mg TID PRN PO 11/04/24 14:30 11/04/24 22:00 2.5 MG Atorvastatin Calcium 40 mg HS PO 11/04/24 20:45 11/04/24 22:00 40 MG Laboratory Results Laboratory Tests 11/02/24 04:06 11/04/24 05:24 Urinalysis Test 11/02/24 11:53 Urine Color Yellow (Yellow) Urine Clarity Clear (Clear) Urine pH 6.0 (5.0-9.0) Urine Specific [place] 1.016 (1.001-1.035) Urine Protein 2+ (Negative) H Urine Ketones Negative (Negative) Urine Blood 1+ /uL (Negative) H Urine Nitrite Negative (Negative) Urine Bilirubin Negative (Negative) Urine Urobilinogen 3 mg/dL (Negative) H Urine Leukocyte Esterase Negative /uL (Negative) Urine RBC 2 /hpf (0 - 3) Urine Microscopic WBC 3 /HPF (0-3) Urine Squamous Epithelial Cells None seen /hpf (<5) Urine Bacteria None seen /hpf (None Seen) Urine Creatinine 72.48 mg/dL (30.0-125.0) Urine Protein/Creatinine Ratio 2.58 Urine Sodium 27 mmol/L (40-220) L Urine Glucose Normal mg/dL (Normal) Urine Total Protein 186.7 mg/dL (1-14) H Labs and/or images reviewed: Labs reviewed by me, Image(s) reviewed by me Assessment/Plan Assessment/Plan Impression: -coronary artery disease, status post bypass -primary hypertension -dyslipidemia -diabetes mellitus -nicotine dependence -CKD stage IIIB Plan: -events: MRI of the brain reveals acute CVA. Neurology on board already. Probably occurred during CT surgery. Long discussion made with the patient as well as family. At this time they wished for the patient to be sent home with appropriate services. -social service consultation: DC planning -continue postop meds -neurology consultation -CT scan of the head -regular insulin sliding scale -physical therapy consultation -O2 supplementation to keep saturation greater than 92% Total time spent with patient discussing and formulating plan of care: 35 minutes. This medical document was created using an electronic medical record system with [employer] dictation system. Although this document has been carefully reviewed, there may still be some phonetic and typographical errors. These areas are purely typographical due to imperfections of the software programs, and do not reflect any compromise in the patient's medical care. Plan discussed with: Patient, Other (RN) My Orders Orders - MARIA C DÍAZ NP Procedure Category Date Status Time * Museum Service Scheduler CONS 11/05/24 Transmitted Consult Date of Service: Nov 05, 2024 Billing Provider: MARIA C DÍAZ NP Common Visit Codes: [id number] INP/OBS CARE(HIGH) MARIA C DÍAZ NP Nov 05, 2024 11:14
--- NOTE | 2024-11-05 21:38 | DVHPN2 ---
Progress Note - Dictate Date Seen: Nov 05, 2024 Medical Necessity Reason Pt with a Central, PICC or Fol: No Subjective Mr. Barker is a 59 years old right-handed gentleman with a history of hypertension, diabetes, coronary artery disease, heart attack, left ankle fracture with residual left leg weakness, he came to the [facility] on 10/10/24 with a chief complaint of flu-like symptoms and dizziness for two months, in the hospital, the patient was found to have coronary artery disease and he was transferred to [facility] where he received three coronary artery bypass, but he was recovery was uneventful. I have seen and examined the patient, talked to his nurse, the patient was awake, oriented x3. Today he tells me that he was fine in the legs briefly heart surgery in the [facility], but unfortunately company up the heart surgery, he was weakness in both legs. He said he was not allowed to push with his arms of the surgery [place] [facility] consultation 11/03/2024: NIHSS: 4 UDS, 10/12/2024: Negative Urinalysis, 11/02/2024: WBC: Three, urine leukocyte esterase: Negative WBC/HB/PLT/MCV, 11/02/24: 3.3/9.2/284/88.3 BUN/CR, 11/02/2024: 90/2.94 HGB A1c, 10/11/2024:6.6 Liver function tests, 11/02/2024: Unremarkable TG/HDL/LDL/HDL, 10/11/2024: 118/151/108/27 TSH, 10/11/2024: 1.07 Echocardiogram g, 10/11/2024: Normal left ventricular size and low-normal systolic function. Ejection fraction is estimated at 50-55%. Severe hypokinesis of the inferoposterior wall. Grade II diastolic dysfunction with evidence of elevated left-sided filling pressure. Normal right ventricular size and systolic function. Mildly dilated left atrial chamber size. No significant valvular disease. PA systolic pressure isn't adequately estimated. Small circumferential pericardial effusion. Carotid Doppler, 11/02/2024: 1. No hemodynamically significant stenosis noted in the right carotid system. 2. No hemodynamically significant stenosis noted in the left carotid system CT, 11/02/2024: Hypodensity over the right lyles radiata which may represent an area of infarct of unknown chronicity. MRI would be helpful for further evaluation MRI head, 11/03/2024:Scattered punctate foci of acute ischemia involving bilateral cerebral white matter, corpus callosum, and the medulla. This distribution may be secondary to embolic and/or watershed ischemia MRI T-spine, 11/03/2024: Limited evaluation on the axial T2 series due to significant motion artifact. Within this limitation: 1. No evidence of spinal stenosis or cord compression. 2. Mild central T2/STIR signal in the cord is favored to represent mild prominence of the central canal; however, superimposed myelopathy is difficult to exclude. Consider interval follow-up imaging as clinically indicated. 3. Small bilateral pleural effusions vital signs Vital Sign Date Time Temp Pulse Resp B/P (MAP) Pulse Ox O2 Delivery O2 Flow Rate FiO2 11/05/24 18:10 100 Nasal Cannula* 2 28 11/05/24 17:13 97.9 71 16 103/57 (72) 97.9 Total Intake and Output 11/04/24 11/04/24 11/05/24 15:00 23:00 07:00 Intake Total 500 ml Output Total 700 ml 1200 ml Balance -700 ml -700 ml medications Current Medications Medications Dose Ordered Sig/Shavon Route Start Time Stop Time Status Last Admin Dose Admin Nitroglycerin 0.4 mg Q5MINP PRN SL 11/01/24 16:00 Morphine Sulfate 2 mg Q30M PRN IV 11/01/24 16:00 Acetaminophen 500 mg Q8HP PRN PO 11/01/24 16:00 11/04/24 00:31 500 MG Ondansetron HCl 4 mg Q6HP PRN IV 11/01/24 16:00 Docusate Sodium 100 mg BID PRN PO 11/01/24 16:00 11/05/24 20:25 100 MG Albuterol 2.5 mg Q4HPRN PRN NEB 11/01/24 16:00 Ipratropium [place] 0.5 mg Q4HPRN PRN NEB 11/01/24 16:00 Diagnostic Test (Pha) 1 strip ACHS 11/01/24 17:00 11/05/24 17:12 1 STRIP Insulin Human Regular HS SC 11/01/24 22:00 11/04/24 22:19 2 UNITS Insulin Human Regular AC SC 11/01/24 17:00 11/05/24 12:09 2 UNITS Dextrose 50 ml UD PRN IV 11/01/24 16:00 Tramadol HCl 50 mg Q6HP PRN PO 11/01/24 23:00 11/05/24 20:24 50 MG Tramadol HCl 25 mg Q6HP PRN PO 11/01/24 23:00 Hold Famotidine 20 mg BID PO 11/02/24 22:00 11/05/24 09:33 20 MG Metoprolol Tartrate 12.5 mg BID PO 11/02/24 22:00 11/05/24 09:34 12.5 MG Tamsulosin HCl 0.4 mg QPM PO 11/02/24 18:00 11/05/24 17:16 0.4 MG Aspirin 81 mg DAILY PO 11/03/24 10:00 11/05/24 09:33 81 MG Alprazolam 0.25 mg Q12HP PRN PO 11/02/24 15:45 11/04/24 02:35 0.25 MG Lorazepam 1 mg ONCE PRN IV 11/02/24 22:30 Apixaban 10 mg BID PO 11/03/24 22:00 11/10/24 10:01 11/05/24 09:33 10 MG Olanzapine 2.5 mg TID PRN PO 11/04/24 14:30 11/04/24 22:00 2.5 MG Atorvastatin Calcium 40 mg HS PO 11/04/24 20:45 11/04/24 22:00 40 MG objective General: the patient is well developed and nourished. No acute distress. MENTAL STATUS: Subjective SPEECH, LANGUAGE, HIGHER CORTICAL FUNCTION: no aphasia or dysathria. CRANIAL NERVES: Pupils are equal, round and reactive. EOMs full and conjugate. Facial sensation intact in all three divisions bilaterally. Mandibular strength intact. Facial muscles symmetrical and strength intact. SENSATION: Sensation to touch and pinprick is normal. No sensory level MOTOR: Normal tone in the upper and lower extremity. Normal muscle bulk. No fasciculations. No abnormal movements or posturing. Muscle strength of the major groups in the upper extremities is 4-5/5. Muscle strength of the major groups in the lower extremities is 3/5. REFLEXES: Deep tendon reflexes are symmetrical. No pathological reflexes. CEREBELLAR/COORDINATION: Finger to nose is normal bilaterally. GAIT/STATION: deferred laboratory and microbiology Laboratory Tests 11/04/24 05:24 11/02/24 04:06 Test 11/04/24 05:24 Range/Units Serum Glucose 114 H 74-106 mg/dL Problem List Bilateral leg weakness Acute multiple strokes, ? Secondary to CABG Pressure saw Heart attack status post CABG Assessment/Plan Monitoring Supportive treatment Telemetry Eliquis 10 mg b.i.d. for now Aspirin 81 mg daily Lipitor 40 mg daily Wound care GI prophylaxis More recommendation per clinical course Will discuss with hospitalist Re: Anticoagulation treatment This medical document was created using an electronic medical record system with [employer] dictation system. Although this document has been carefully reviewed, there may still be some phonetic and typographical errors. These areas are purely typographical due to imperfections of the software programs, and do not reflect any compromise in the patient's medical care Prognosis poor Dietary Evaluation Review Comments: 1) Continue to promote good PO intake 2) Jose L NOT recommended d/t low GFR - continue to monitor skin interity 3) Continue plan of care Expected Outcomes/Goals: 1) appetite and labs to improve 2) wound to improve 3) f/u in 3 days Plan discussed with: Other Total Time (mins): 35 NIKOLAS PRATT MD Nov 05, 2024 21:38
[2024-11-06] VITALS (10 sets, daily range): BP systolic 94–142; BP diastolic 51–70; PULSE 70–82; RESP 16–19; TEMP 97.5–99.3; O2SAT 81–97
--- NOTE | 2024-11-06 14:37 | DVHDS2 ---
Discharge Summary Date of Admission Nov 01, 2024 at 15:56 Date of Discharge: Nov 06, 2024 Admitting Diagnosis Coronary artery disease, status post bypass surgery Labs/Diagnostic Data: Laboratory Results Test 11/06/24 13:45 11/04/24 05:24 11/02/24 11:53 11/02/24 04:06 POC Glucose 153 mg/dl (70-106) Sodium Level 134 mmol/L (136-145) Potassium Level 4.8 mmol/L (3.5-5.1) Chloride Level 98 mmol/L (98-107) Carbon Dioxide Level 29 mmol/L (20-31) Anion Gap 7 (5-15) Blood Urea Nitrogen 74 mg/dL (9-23) Creatinine 2.27 mg/dL (0.700-1.30) Glomerular Filtration Rate Calc 32 mL/min (>90) BUN/Creatinine Ratio 32.6 (10.0-20.0) Serum Glucose 114 mg/dL (74-106) Calcium Level 8.9 mg/dL (8.7-10.4) Total Bilirubin 0.4 mg/dL (0.2-1.0) Aspartate Amino Transferase (AST) 26 U/L (13-40) Alanine Aminotransferase (ALT) 23 U/L (7-40) Alkaline Phosphatase 139 U/L (46-116) Total Protein 6.4 g/dL (5.7-8.2) Albumin 2.9 g/dL (3.2-4.8) Urine Color Yellow (Yellow) Urine Clarity Clear (Clear) Urine pH 6.0 (5.0-9.0) Urine Specific [place] 1.016 (1.001-1.035) Urine Protein 2+ (Negative) Urine Ketones Negative (Negative) Urine Blood 1+ /uL (Negative) Urine Nitrite Negative (Negative) Urine Bilirubin Negative (Negative) Urine Urobilinogen 3 mg/dL (Negative) Urine Leukocyte Esterase Negative /uL (Negative) Urine RBC 2 /hpf (0 - 3) Urine Microscopic WBC 3 /HPF (0-3) Urine Squamous Epithelial Cells None seen /hpf (<5) Urine Bacteria None seen /hpf (None Seen) Urine Creatinine 72.48 mg/dL (30.0-125.0) Urine Protein/Creatinine Ratio 2.58 Urine Sodium 27 mmol/L (40-220) Urine Glucose Normal mg/dL (Normal) Urine Total Protein 186.7 mg/dL (1-14) White Blood Count 3.3 10^3/uL (4.4-10.8) Red Blood Count 3.18 10^6/uL (4.5-5.90) Hemoglobin 9.2 g/dL (13.5-17.5) Hematocrit 28.1 % (41.0-53.0) Mean Corpuscular Volume 88.3 fL (80.0-100.0) Mean Corpuscular Hemoglobin 28.8 pg (28.0-32.0) Mean Corpuscular Hemoglobin Concent 32.6 g/dL (32.0-36.0) Red Cell Distribution Width 15.0 % (11.8-14.3) Platelet Count 284 10^3/uL (140-450) Mean Platelet Volume 9.6 fL (6.9-10.8) Neutrophils (%) (Auto) % (37.0-80.0) Lymphocytes (%) (Auto) % (10.0-50.0) Monocytes (%) (Auto) % (0.0-12.0) Basophils (%) (Auto) % (0.0-2.0) Neutrophils # (Auto) 10 ^3/uL (1.6-8.6) Lymphocytes # (Auto) 10 ^3/uL (0.4-5.4) Monocytes # (Auto) 10 ^3/uL (0-1.3) Differential Total Cells Counted 100.0 (100) Neutrophils % (Manual) 40 (37.0-80.0) Band Neutrophils % (Manual) 2 Lymphocytes % (Manual) 44 (10.0-50.0) Monocytes % (Manual) 10 (0-12) Eosinophils % (Manual) 4 (0-7) Basophils % (Manual) 0 (0.0-2.0) Metamyelocytes % (manual) 0 Myelocytes % (Manual) 0 Promyelocytes % (Manual) 0 Blast Cells % (Manual) 0 Reactive Lymphocytes 0 Platelet Estimate Adequate Uric Acid 9.0 mg/dL (3.7-9.2) Phosphorus Level 5.2 mg/dL (2.4-5.1) Magnesium Level 2.9 mg/dL (1.6-2.6) B-Type Natriuretic Peptide 370.91 pg/mL (0-100) Vitamin D 25-Hydroxy 12.1 ng/mL (30.0-100) Parathyroid Hormone (Intact) 68.5 pg/mL (18.4-80.1) Other Laboratory Tests 11/04/24 05:24 11/02/24 04:06 Brief Hx & Hospital Course: History of Present Illness The patient is a 59-year-old male transferred back from [facility] after undergoing coronary artery bypass grafting x3. Patient was significant history diabetes mellitus, nicotine dependence, dyslipidemia, and chronic kidney disease. Postoperatively, the patient's recovery was uneventful. Patient was transferred back to [facility] for purposes of repatriation post surgery. Course of hospitalization: Evaluation of the patient reveals that he has not been ambulating post surgery. Family also reports that the patient had prolonged time getting extubated from surgery. Assessment of the patient reveals that he has severe weakness to his bilateral lower extremities. Prior to surgery, patient was ambulatory, was working prior to hospitalization. Given the patient's acute change in motor deficits in understanding the patient's baseline, CT scan of the head was performed with questionable acute CVA. This was confirmed with MRI of the brain. Neurology consultation was obtained. Physical therapy evaluation was performed. Long discussion was made with the patient's family regarding findings. With respect to CT surgery, CVA is a known risk which was described to the patient's family as well as the patient. At this time, patient's family wishes to take the patient home. Consultation was placed with social worker assistant for appropriate DME and home health services if available. Patient will be continued on Plavix and aspirin at time of discharge, as well as previous home medications for goal-directed medical therapy , hypertension, and diabetes mellitus. Physical examination General: Alert and Oriented x3. No acute distress. Well-nourished. Eyes: EOMI. Anicteric. HENT: Moist mucous membranes. Lungs: Clear to auscultation bilaterally. No accessory muscle use. Cardiovascular: Regular rate and rhythm. No murmur. No JVD. Abdomen: Soft, non-tender and non-distended. No palpable masses. Extremities: No edema. Non-tender. Skin: No rashes or lesions. Warm. Neurologic: No focal neurological deficits. CN II-XII grossly intact, but not individually tested. Severe weakness to lower extremities. Psychiatric: Cooperative. Appropriate mood and affect. Total time spent with patient discussing and formulating plan of care: 35 minutes. This medical document was created using an electronic medical record system with [employer] dictation system. Although this document has been carefully reviewed, there may still be some phonetic and typographical errors. These areas are purely typographical due to imperfections of the software programs, and do not reflect any compromise in the patient's medical care. Consults/Reason for consult Neurology: Acute CVA Condition at Discharge: Guarded Final Diagnosis/Problems List Coronary artery disease, status post bypass Acute CVA Secondary diagnosis: -primary hypertension -dyslipidemia -diabetes mellitus -nicotine dependence -CKD stage IIIB Discharge Disposition: Home Discharge Instruct/Medications Diet: Consistent carbohydrate, Cardiac 2g Na,low cholest Activity: No Restrictions, As Tolerated Follow Up/Referral: Follow up with Cardiology, Dr. Payton in 1-2 weeks Follow up with surgeon at scheduled appointment Medications: Refer to medication reconciliation 36 Discharge Statement: "Patient was advised to return to the ER or call 911 if any headaches, dizziness, shortness of breath, chest pain, abdominal pain, bleeding, fevers, or worsening of medical condition. Patient was counseled about treatment plan, medications, possible side effects, patientverbalized understanding. All questions were answered to the best of my ability. This discharge took greater then 30 minutes in planning, reviewing documentation, counseling the patient, and discussing with other team members." ASSESSMENT ASSESSMENT Assessment Coronary artery disease, status post bypass Acute CVA Date of Service: Nov 06, 2024 Billing Provider: MARIA C DÍAZ NP Common Visit Codes: 07707-OGJ/OBS DISCH DAY >30min MARIA C DÍAZ NP Nov 06, 2024 14:37
[2024-11-06] MEDS ORDERED: TRAM-626 PO (14:40)
[2024-11-06] MEDS ORDERED: CLOP75TA28 PO (14:40)
[2024-11-06] MEDS: FLEET ENEMA(ADULT) 135 ML PR ONE (18:09)
--- NOTE | 2024-11-06 23:12 | DVHPN2 ---
Progress Note - Dictate Date Seen: Nov 06, 2024 Medical Necessity Reason Pt with a Central, PICC or Fol: No Subjective Mr. Barker is a 59 years old right-handed gentleman with a history of hypertension, diabetes, coronary artery disease, heart attack, left ankle fracture with residual left leg weakness, he came to the [facility] on 10/10/24 with a chief complaint of flu-like symptoms and dizziness for two months, in the hospital, the patient was found to have coronary artery disease and he was transferred to [facility] where he received three coronary artery bypass, but he was recovery was uneventful. I have seen and examined the patient, talked to his nurse, the patient was awake, oriented x3. No new complaints On physical examination, this no sensory level UDS, 10/12/2024: Negative Urinalysis, 11/02/2024: WBC: Three, urine leukocyte esterase: Negative WBC/HB/PLT/MCV, 11/02/24: 3.3/9.2/284/88.3 BUN/CR, 11/02/2024: 90/2.94 HGB A1c, 10/11/2024:6.6 Liver function tests, 11/02/2024: Unremarkable TG/HDL/LDL/HDL, 10/11/2024: 118/151/108/27 TSH, 10/11/2024: 1.07 Echocardiogram g, 10/11/2024: Normal left ventricular size and low-normal systolic function. Ejection fraction is estimated at 50-55%. Severe hypokinesis of the inferoposterior wall. Grade II diastolic dysfunction with evidence of elevated left-sided filling pressure. Normal right ventricular size and systolic function. Mildly dilated left atrial chamber size. No significant valvular disease. PA systolic pressure isn't adequately estimated. Small circumferential pericardial effusion. Carotid Doppler, 11/02/2024: 1. No hemodynamically significant stenosis noted in the right carotid system. 2. No hemodynamically significant stenosis noted in the left carotid system CT, 11/02/2024: Hypodensity over the right lyles radiata which may represent an area of infarct of unknown chronicity. MRI would be helpful for further evaluation MRI head, 11/03/2024:Scattered punctate foci of acute ischemia involving bilateral cerebral white matter, corpus callosum, and the medulla. This distribution may be secondary to embolic and/or watershed ischemia MRI T-spine, 11/03/2024: Limited evaluation on the axial T2 series due to significant motion artifact. Within this limitation: 1. No evidence of spinal stenosis or cord compression. 2. Mild central T2/STIR signal in the cord is favored to represent mild prominence of the central canal; however, superimposed myelopathy is difficult to exclude. Consider interval follow-up imaging as clinically indicated. 3. Small bilateral pleural effusions vital signs Vital Sign Date Time Temp Pulse Resp B/P (MAP) Pulse Ox O2 Delivery O2 Flow Rate FiO2 11/06/24 21:19 82 142/67 11/06/24 21:00 98.7 18 97 98.7 11/06/24 19:50 Room Air* 0 21 Total Intake and Output 11/05/24 11/05/24 11/06/24 15:00 23:00 07:00 Intake Total 800 ml 240 ml Output Total 650 ml 600 ml Balance 150 ml -360 ml medications Current Medications Medications Dose Ordered Sig/Shavon Route Start Time Stop Time Status Last Admin Dose Admin Nitroglycerin 0.4 mg Q5MINP PRN SL 11/01/24 16:00 Morphine Sulfate 2 mg Q30M PRN IV 11/01/24 16:00 Acetaminophen 500 mg Q8HP PRN PO 11/01/24 16:00 11/04/24 00:31 500 MG Ondansetron HCl 4 mg Q6HP PRN IV 11/01/24 16:00 Docusate Sodium 100 mg BID PRN PO 11/01/24 16:00 11/05/24 20:25 100 MG Albuterol 2.5 mg Q4HPRN PRN NEB 11/01/24 16:00 Ipratropium [place] 0.5 mg Q4HPRN PRN NEB 11/01/24 16:00 Diagnostic Test (Pha) 1 strip ACHS 11/01/24 17:00 11/06/24 21:19 1 STRIP Insulin Human Regular HS SC 11/01/24 22:00 11/06/24 22:08 3 UNITS Insulin Human Regular AC SC 11/01/24 17:00 11/06/24 17:00 2 UNITS Dextrose 50 ml UD PRN IV 11/01/24 16:00 Tramadol HCl 50 mg Q6HP PRN PO 11/01/24 23:00 11/06/24 21:17 50 MG Tramadol HCl 25 mg Q6HP PRN PO 11/01/24 23:00 Hold Famotidine 20 mg BID PO 11/02/24 22:00 11/06/24 21:17 20 MG Metoprolol Tartrate 12.5 mg BID PO 11/02/24 22:00 11/06/24 21:19 12.5 MG Tamsulosin HCl 0.4 mg QPM PO 11/02/24 18:00 11/06/24 18:09 0.4 MG Aspirin 81 mg DAILY PO 11/03/24 10:00 11/06/24 10:26 81 MG Alprazolam 0.25 mg Q12HP PRN PO 11/02/24 15:45 11/04/24 02:35 0.25 MG Lorazepam 1 mg ONCE PRN IV 11/02/24 22:30 Olanzapine 2.5 mg TID PRN PO 11/04/24 14:30 11/05/24 21:25 2.5 MG Atorvastatin Calcium 40 mg HS PO 11/04/24 20:45 11/06/24 21:18 40 MG objective General: the patient is well developed and nourished. No acute distress. MENTAL STATUS: Subjective SPEECH, LANGUAGE, HIGHER CORTICAL FUNCTION: no aphasia or dysathria. CRANIAL NERVES: Pupils are equal, round and reactive. EOMs full and conjugate. Facial sensation intact in all three divisions bilaterally. Mandibular strength intact. Facial muscles symmetrical and strength intact. SENSATION: Sensation to touch and pinprick is normal. No sensory level MOTOR: Normal tone in the upper and lower extremity. Normal muscle bulk. No fasciculations. No abnormal movements or posturing. Muscle strength of the major groups in the upper extremities is 4-5/5. Muscle strength of the major groups in the lower extremities is: Rt: 3-4/5, Lt: 3/5. REFLEXES: Deep tendon reflexes are symmetrical. No pathological reflexes. CEREBELLAR/COORDINATION: Finger to nose is normal bilaterally. GAIT/STATION: deferred laboratory and microbiology Laboratory Tests 11/04/24 05:24 11/02/24 04:06 Test 11/04/24 05:24 Range/Units Serum Glucose 114 H 74-106 mg/dL Problem List Bilateral leg weakness Acute multiple strokes, ? Secondary to CABG Pressure sore Heart attack status post CABG Assessment/Plan Monitoring Supportive treatment Telemetry Aspirin 81 mg daily Lipitor 40 mg daily Wound care GI prophylaxis More recommendation per clinical course Will discuss with hospitalist Re: Anticoagulation treatment This medical document was created using an electronic medical record system with [employer] dictation system. Although this document has been carefully reviewed, there may still be some phonetic and typographical errors. These areas are purely typographical due to imperfections of the software programs, and do not reflect any compromise in the patient's medical care Prognosis poor Dietary Evaluation Review Comments: 1) Continue to promote good PO intake 2) Jose L NOT recommended d/t low GFR - continue to monitor skin interity 3) Continue plan of care Expected Outcomes/Goals: 1) appetite and labs to improve 2) wound to improve 3) f/u in 3 days Plan discussed with: Patient, Other NIKOLAS PRATT MD Nov 06, 2024 23:12
[2024-11-07] VITALS (7 sets, daily range): BP systolic 98–130; BP diastolic 49–64; PULSE 69–73; RESP 17–20; TEMP 98.2–99.8; O2SAT 92–98
[2024-11-07 10:31] LABS: Hematocrit 29.4 % (41.0-53.0); Hemoglobin 9.4 g/dL (13.5-17.5); Mean Corpuscular Hemoglobin 28.2 pg (28.0-32.0); Mean Corpuscular Volume 88.3 fL (80.0-100.0); Platelet Count (auto) 291 10^3/uL (140-450); Red Blood Cells 3.33 10^6/uL (4.5-5.90); Red Cell Distribution Width 15.5 % (11.8-14.3); White Blood Cell 4.8 10^3/uL (4.4-10.8)
[2024-11-07 10:59] LABS: Basophils % (manual) 0 (0.0-2.0); Blast Cells 0; Metamyelocytes % 0; Myelocytes % 0; Promyelocytes % 0; Reactive Lymphocytes 0
[2024-11-07 11:53] LABS: Chloride 99 mmol/L (98-107); Potassium 4.4 mmol/L (3.5-5.1)
[2024-11-07 11:54] LABS: Anion Gap 7 (5-15); Carbon Dioxide 28 mmol/L (20-31)
[2024-11-07 11:55] LABS: Calcium 8.7 mg/dL (8.7-10.4)
[2024-11-07 11:57] LABS: Sodium 134 mmol/L (136-145)
[2024-11-07 12:00] LABS: BUN/Creatinine Ratio 32.4 (10.0-20.0)
[2024-11-07 12:07] LABS: Band Neutrophils % (manual) 1; Eosinophils % (manual) 10 (0-7); Lymphocytes % (manual) 15 (10.0-50.0); Monocytes % (manual) 18 (0-12); Platelet Estimate Adequate
[2024-11-07 12:10] LABS: Blood Urea Nitrogen 70 mg/dL (9-23); Glucose 196 mg/dL (74-106)
[2024-11-07] MEDS: TAMSULOSIN HYDROCHLORIDE 0.4 MG CAP PO ONE (15:08)
--- NOTE | 2024-11-07 15:59 | DVHPN2 ---
Subjective Continues to complain of severe weakness in lower extremities Reviewed: Care Plan, H&P, Labs, Medications, Previous Orders Changes from previous H/P or p: No Changes General: Per HPI Eyes: No Pain, No Vision change, No Conjunctivae inflammation, No Eyelid inflammation, No Other, No Redness ENT: No Ear pain, No Ear discharge, No Nose pain, No Nose discharge, No Nose congestion, No Mouth pain, No Mouth swelling, No Throat pain, No Throat swelling, No Other Gastrointestinal: No Nausea, No Vomiting, No Abdominal Pain, No Diarrhea, No Constipation, No Melena, No Hematochezia, No Other Musculoskeletal: other (BLE leg weakness) Skin: No Rash, No Lesions, No Jaundice, No Bruising, No Other Objective Vitals Vital Signs Date Time Temp Pulse Resp B/P (MAP) Pulse Ox O2 Delivery O2 Flow Rate FiO2 11/07/24 13:19 98.2 69 19 130/61 (84) 98 98.2 11/07/24 09:42 Room Air* 0 21 Intake/Output Intake and Output 11/07/24 07:00 Intake Total 550 ml Output Total 950 ml Balance -400 ml Intake Oral 550 ml Output Urine Total 950 ml General Appearance: Alert, Oriented X3, Cooperative HEENT: Atraumatic Lungs: Clear to auscultation, Normal air movement Chest/Breasts: Other (Midline incision dry and intact) Cardiovascular: Normal S1, Normal S2 Abdomen: Normal bowel sounds, Soft Genitourinary: No Apparent Abnormalities (Jones catheter) Musculoskeletal: Normal sensory function, Normal motor function Neuro: Normal speech, Cranial nerves 3-12 NL, Other (Severe severe weakness to lower extremity) Skin: Dry, Intact Psych/Mental Status: Mental status NL, Mood NL Medications Current Medications Medications Dose Ordered Sig/Shavon Route Start Time Stop Time Status Last Admin Dose Admin Nitroglycerin 0.4 mg Q5MINP PRN SL 11/01/24 16:00 Morphine Sulfate 2 mg Q30M PRN IV 11/01/24 16:00 Acetaminophen 500 mg Q8HP PRN PO 11/01/24 16:00 11/04/24 00:31 500 MG Ondansetron HCl 4 mg Q6HP PRN IV 11/01/24 16:00 Docusate Sodium 100 mg BID PRN PO 11/01/24 16:00 11/05/24 20:25 100 MG Albuterol 2.5 mg Q4HPRN PRN NEB 11/01/24 16:00 Ipratropium [place] 0.5 mg Q4HPRN PRN NEB 11/01/24 16:00 Diagnostic Test (Pha) 1 strip ACHS 11/01/24 17:00 11/07/24 06:54 1 STRIP Insulin Human Regular HS SC 11/01/24 22:00 11/06/24 22:08 3 UNITS Insulin Human Regular AC SC 11/01/24 17:00 11/06/24 17:00 2 UNITS Dextrose 50 ml UD PRN IV 11/01/24 16:00 Tramadol HCl 50 mg Q6HP PRN PO 11/01/24 23:00 11/06/24 21:17 50 MG Tramadol HCl 25 mg Q6HP PRN PO 11/01/24 23:00 Hold Famotidine 20 mg BID PO 11/02/24 22:00 11/07/24 09:19 20 MG Metoprolol Tartrate 12.5 mg BID PO 11/02/24 22:00 11/06/24 21:19 12.5 MG Tamsulosin HCl 0.4 mg QPM PO 11/02/24 18:00 11/06/24 18:09 0.4 MG Aspirin 81 mg DAILY PO 11/03/24 10:00 11/07/24 09:19 81 MG Alprazolam 0.25 mg Q12HP PRN PO 11/02/24 15:45 11/04/24 02:35 0.25 MG Lorazepam 1 mg ONCE PRN IV 11/02/24 22:30 Olanzapine 2.5 mg TID PRN PO 11/04/24 14:30 11/05/24 21:25 2.5 MG Atorvastatin Calcium 40 mg HS PO 11/04/24 20:45 11/06/24 21:18 40 MG Laboratory Results Laboratory Tests 11/07/24 10:07 Chemistry Test 11/07/24 10:07 Calcium Level 8.7 mg/dL (8.7-10.4) Urinalysis Test 11/02/24 11:53 Urine Color Yellow (Yellow) Urine Clarity Clear (Clear) Urine pH 6.0 (5.0-9.0) Urine Specific [place] 1.016 (1.001-1.035) Urine Protein 2+ (Negative) H Urine Ketones Negative (Negative) Urine Blood 1+ /uL (Negative) H Urine Nitrite Negative (Negative) Urine Bilirubin Negative (Negative) Urine Urobilinogen 3 mg/dL (Negative) H Urine Leukocyte Esterase Negative /uL (Negative) Urine RBC 2 /hpf (0 - 3) Urine Microscopic WBC 3 /HPF (0-3) Urine Squamous Epithelial Cells None seen /hpf (<5) Urine Bacteria None seen /hpf (None Seen) Urine Creatinine 72.48 mg/dL (30.0-125.0) Urine Protein/Creatinine Ratio 2.58 Urine Sodium 27 mmol/L (40-220) L Urine Glucose Normal mg/dL (Normal) Urine Total Protein 186.7 mg/dL (1-14) H Labs and/or images reviewed: Labs reviewed by me, Image(s) reviewed by me Assessment/Plan Assessment/Plan Impression: -coronary artery disease, status post bypass -primary hypertension -dyslipidemia -diabetes mellitus -nicotine dependence -CKD stage IIIB Plan: -events: Patient was discharged yesterday. Awaiting DME. Now waiting for transportation home. Patient has urinary retention. We will attempt to use Flomax. If patient continues to lack the ability to have urination, Jones catheter will be placed. He was instructed to follow up with his PCP at his appointment next Tuesday. -social service consultation: DC planning -continue postop meds -neurology consultation -CT scan of the head -regular insulin sliding scale -physical therapy consultation -O2 supplementation to keep saturation greater than 92% Total time spent with patient discussing and formulating plan of care: 35 minutes. This medical document was created using an electronic medical record system with [employer] dictation system. Although this document has been carefully reviewed, there may still be some phonetic and typographical errors. These areas are purely typographical due to imperfections of the software programs, and do not reflect any compromise in the patient's medical care. Plan discussed with: Patient, Other (RN) My Orders Orders - MARIA C DÍAZ NP Procedure Category Date Status Time D/C Jones DUGLAS 11/06/24 In Process 16:57 Date of Service: Nov 07, 2024 Billing Provider: MARIA C DÍAZ NP Common Visit Codes: [id number] INP/OBS CARE(HIGH) MARIA C DÍAZ NP Nov 07, 2024 15:59
== END 2024-11-07 16:35 | disposition home or self-care (01) | DRG 65 ==
LOC: TELE-WESTW 15:56
PROVIDERS: ADMIT Nurse Practitioner Acute Care; ATTEND Nurse Practitioner Acute Care
DX: I63.9 Cerebral infarction, unspecified (principal); I13.0 Hypertensive heart and chronic kidney disease with heart failure and stage 1 through stage 4 chronic kidney disease, or unspecified chronic kidney disease; I50.32 Chronic diastolic (congestive) heart failure; N17.9 Acute kidney failure, unspecified; I25.10 Atherosclerotic heart disease of native coronary artery without angina pectoris; R29.704 NIHSS score 4; E11.22 Type 2 diabetes mellitus with diabetic chronic kidney disease; N18.32 Chronic kidney disease, stage 3b; D63.1 Anemia in chronic kidney disease; E11.21 Type 2 diabetes mellitus with diabetic nephropathy; J44.9 Chronic obstructive pulmonary disease, unspecified; F17.210 Nicotine dependence, cigarettes, uncomplicated; E78.5 Hyperlipidemia, unspecified; F29 Unspecified psychosis not due to a substance or known physiological condition; I25.2 Old myocardial infarction; Z91.011 Allergy to milk products; Z79.899 Other long term (current) drug therapy; Z79.82 Long term (current) use of aspirin; Z79.02 Long term (current) use of antithrombotics/antiplatelets; Z95.1 Presence of aortocoronary bypass graft
CPT/HCPCS: 36415; 70450; 70551; 71045; 72146; 76775; 80048; 80053; 81001; 82306; 82570; 82962; 83735; 83880; 83970; 84100; 84156; 84300; 84550; 85007; 85027; 93886; 96372; 97110; 97116; 97163; 97530; G0378; J1815

== ENCOUNTER 2024-12-03 21:16 | Inpatient (IN) | payer BC, OTHER ==
[~2024-12-03] VITALS: Ht 175.3 cm; Wt 85.5 kg
[~2024-12-03 21:16] MED LIST changes: +ASPI81CH49 PO; +ATOR10TA52 PO; +ATOR80TA PO; +CLOP75TA28 PO; +FAMO-12 PO; +FURO1TAB33 PO; +HEPA10004 IJ; +MELA3TAB27 PO; +METF-370 PO; +METO25TA5 PO; +TAMS0.4C39 PO; +TRAM-626 PO
[2024-12-03 22:05] LABS: Hematocrit 26.4 % (41.0-53.0); Hemoglobin 8.8 g/dL (13.5-17.5); Mean Corpuscular Hemoglobin 27.9 pg (28.0-32.0); Mean Corpuscular Hgb Conc. 33.2 g/dL (32.0-36.0); Mean Corpuscular Volume 84.2 fL (80.0-100.0); Platelet Count (auto) 260 10^3/uL (140-450); Red Blood Cells 3.13 10^6/uL (4.5-5.90); Red Cell Distribution Width 16.2 % (11.8-14.3); White Blood Cell 3.4 10^3/uL (4.4-10.8)
[2024-12-03 22:08] LABS: Basophils % (manual) 0 (0.0-2.0); Blast Cells 0; Eosinophils % (manual) 0 (0-7); Metamyelocytes % 0; Myelocytes % 0; Promyelocytes % 0; Reactive Lymphocytes 0
[2024-12-03 22:20] LABS: Anion Gap 9 (5-15); BUN/Creatinine Ratio 25.6 (10.0-20.0); Carbon Dioxide 22 mmol/L (20-31); Chloride 100 mmol/L (98-107); Total Protein 6.8 g/dL (5.7-8.2)
--- NOTE | 2024-12-03 22:41 | ED.PDOC ---
History of Present Illness HPI Comments 59 y/o overweight male, with a history of CABG, DM, HLD, and MO, is BIBA for c/o fever, today. Per EMS report, patient endorses on ongoing fever for the past 4-5 days. He is stated to have had a recent CABG s/p MO along with Jones catheter placement at [facility] ([facility]) 1 month ago. Patient reports on delay in receiving and starting antibiotics following discharge up until 2 week ago. Patient also endorses on Jones catheter being unchanged and in place following aforementioned placement and is awaiting removal via PCP follow up appointment. Prior to Jones catheter placement, patient states on being able to urinate without issue. He denies any additional associated symptoms, such as cough, congestion, abdominal pain, nausea, vomiting, chills, or headache along with any known recent sick contact. EMS reports patient having a temperature of 101.2F, with all remaining initial vitals being stable and within normal limits. Chief Complaint: Fever Time Seen by MD: 21:35 Reviewed Notes: Nurses Notes, Financial Reporting Manager Notes, Medications, Allergies Allergies: Coded Allergies: NO KNOWN ALLERGIES (Unverified , 12/03/24) Information Source: Patient, Emergency Med Personnel Mode of Arrival: EMS Severity: Moderate Timing: Days Duration: Since onset Prehospital treatment: 12 Lead EKG, Accucheck (120), [employer] Past Medical History PAST MEDICAL HISTORY: DM, High Lipids, MO Surgical History: CABG Surgical History (Other): Jones catheter Family History Family History: Unknown Social History Smoker: Non-Smoker Alcohol: Denies ETOH Use Drugs: Denies Drug Use Lives In: Home All Other Systems: Reviewed and Negative (Comprehensive systems review obtained and negative except for what is stated in the HPI.) Physical Exam General Appearance: No Apparent Distress, Normal, Other (chronically ill- appearing ) HEENT: Normal ENT Inspection, Pharynx Normal, TMs Normal Neck: Full Range of Motion, Non-Tender, Normal, Normal Inspection Respiratory: Chest Non-Tender, Lungs Clear, No Accessory Muscle Use, No Respiratory Distress, Normal Breath Sounds Cardiovascular: No Edema, No JVD, No Murmur, No Gallop, Normal Peripheral Pulses, Regular Rate/Rhythm Breast Exam: Deferred Gastrointestinal: No Organomegaly, Non Tender, No Pulsatile Mass, Normal Bowel Sounds, Soft Genitalia: Other (Jones catheter in place ) Pelvic: Deferred Rectal: Deferred Extremities: No calf tenderness, Normal capillary refill, Normal inspection, Normal range of motion, Non-tender, No pedal edema Musculoskeletal : Apperance: Normal 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 Was a procedure done?: No EKG EKG : Pulse Rate (adult): 90 [place]: Normal Cardiac Rhythm: NSR Block: None Hypertrophy: None ST: Normal Differential Dx Considerations may include: UTI, viral syndrome, URI, among others X-Ray, Labs, Meds, VS Vital Signs Date Time Temp Pulse Resp B/P (MAP) Pulse Ox O2 Delivery O2 Flow Rate FiO2 12/04/24 01:06 82 18 94 Room Air* 0 21 12/04/24 00:00 98.2 85 17 102/50 (67) 92 98.2 12/03/24 22:41 90 12/03/24 21:45 101.1 93 20 130/72 (91) 93 101.1 12/03/24 21:26 101.2 116 16 144/77 (99) 96 101.2 12/03/24 21:21 90 Lab Test 12/04/24 00:21 12/03/24 22:27 12/03/24 21:49 12/03/24 21:35 Range/Units Troponin I High Sensitivity 26 25 25 </=54 ng/L Lactic Acid Level 1.4 0.4-2.0 mmol/L White Blood Count 3.4 L 4.4-10.8 10^3/uL Red Blood Count 3.13 L 4.5-5.90 10^6/uL Hemoglobin 8.8 L 13.5-17.5 g/dL Hematocrit 26.4 L 41.0-53.0 % Mean Corpuscular Volume 84.2 80.0-100.0 fL Mean Corpuscular Hemoglobin 27.9 L 28.0-32.0 pg Mean Corpuscular Hemoglobin Concent 33.2 32.0-36.0 g/dL Red Cell Distribution Width 16.2 H 11.8-14.3 % Platelet Count 260 140-450 10^3/uL Mean Platelet Volume 8.1 6.9-10.8 fL Neutrophils (%) (Auto) 37.0-80.0 % Lymphocytes (%) (Auto) 10.0-50.0 % Monocytes (%) (Auto) 0.0-12.0 % Basophils (%) (Auto) 0.0-2.0 % Neutrophils # (Auto) 1.6-8.6 10 ^3/uL Lymphocytes # (Auto) 0.4-5.4 10 ^3/uL Monocytes # (Auto) 0-1.3 10 ^3/uL Differential Total Cells Counted 100.0 100 Neutrophils % (Manual) 70 37.0-80.0 Band Neutrophils % (Manual) 1 Lymphocytes % (Manual) 24 10.0-50.0 Monocytes % (Manual) 5 0-12 Eosinophils % (Manual) 0 0-7 Basophils % (Manual) 0 0.0-2.0 Metamyelocytes % (manual) 0 Myelocytes % (Manual) 0 Promyelocytes % (Manual) 0 Blast Cells % (Manual) 0 Reactive Lymphocytes 0 Platelet Estimate Adequate [place] Cells Few Schistocytes Few Sodium Level 131 L 136-145 mmol/L Potassium Level 6.0 *H 3.5-5.1 mmol/L Chloride Level 100 98-107 mmol/L Carbon Dioxide Level 22 20-31 mmol/L Anion Gap 9 5-15 Blood Urea Nitrogen 71 H 9-23 mg/dL Creatinine 2.77 H 0.700-1.30 mg/dL Glomerular Filtration Rate Calc 25 >90 mL/min BUN/Creatinine Ratio 25.6 H 10.0-20.0 Serum Glucose 125 H 74-106 mg/dL Calcium Level 8.6 L 8.7-10.4 mg/dL Total Bilirubin 1.3 H 0.2-1.0 mg/dL Aspartate Amino Transferase (AST) 58 H 13-40 U/L Alanine Aminotransferase (ALT) 48 H 7-40 U/L Alkaline Phosphatase 644 H 46-116 U/L Total Protein 6.8 5.7-8.2 g/dL Albumin 3.0 L 3.2-4.8 g/dL Current Medications Medications (Trade) Dose Ordered Sig/Shavon Route Start Time Stop Time Status Last Admin Sodium Chloride 1,000 ml @ 1,000 mls/hr Q1H ONCE IV 12/03/24 21:45 12/03/24 22:44 DC 12/03/24 23:49 Ondansetron HCl (Zofran) 4 mg ONCE ONCE IV 12/03/24 21:45 12/03/24 21:46 DC 12/03/24 23:49 Cefepime HCl 50 ml @ 12.5 mls/hr ONCE ONCE IV 12/03/24 21:45 12/04/24 01:44 12/04/24 00:25 Vancomycin HCl 200 ml @ 200 mls/hr ONCE ONCE IV 12/03/24 21:45 12/03/24 22:44 DC 12/03/24 23:49 Acetaminophen (Ofirmev) 1,000 mg DAILY STAT IV 12/03/24 21:37 12/03/24 21:40 DC 12/03/24 23:50 Calcium Gluconate/ Sodium Chloride 50 ml @ 100 mls/hr Q30M IV 12/03/24 23:00 12/03/24 23:59 DC 12/04/24 00:27 Sodium Bicarbonate 100 ml ONCE ONCE IV 12/03/24 23:00 12/03/24 23:02 DC 12/03/24 23:48 Dextrose 50 ml ONCE ONCE IV 12/03/24 23:00 12/03/24 23:02 DC 12/03/24 23:00 Insulin Human Regular (InsuLIN R) 10 units ONCE ONCE IV 12/03/24 23:00 12/03/24 23:02 DC 12/03/24 23:47 Time of 1ST Reevaluation: 22:05 Reevaluation 1ST: Unchanged Patient Education/Counseling: Diagnosis, Treatment Family Education/Counseling: No Family Present Additional Information Previous visit documents reviewed: n/a The following tests were ordered, and results were reviewed by me: CXR, EKG, troponin, rapid influenza A/B and Covid19 antigen tests, UA, CMP, blood culture, lactic acid w/reflex, CBC Additional Information was gathered from interviewing the following independent historians: EMS I reviewed and agreed with the following test results read by other providers: CXR I discussed treatment and results with medical personnel and: Patient Departure 1 Departure Time of Disposition: 01:13 (Patient with signs of infection and possible sepsis. We will empirically cover patient with antibiotics and fluids. We will not give patient the full fluid bolus as patient has a new heart surgery there is some concern for volume overload. We will admit patient for further workup and expert consultation) Impression: Primary Impression: Fever Qualified Codes: R50.9 - Fever, unspecified Additional Impressions: Weakness Hyperkalemia Disposition: ADMITTED INPATIENT Admit to: Tele Condition: Guarded Critical Care Note Critical Care Time?: Yes Critical care comment: Hyperkalemia Authorized and Performed by: Thien Rausch MD Total critical care time: Approximately 33 minutes Due to a high probability of clinically significant, life threatening deterioration, the patient required my highest level of preparedness to inte rvene emergently and I personally spent this critical care time directly and personally managing the patient. This critical care time included obtaining a history; examining the patient; pulse oximetry; ordering and review of studies; arranging urgent treatment with development of a management plan; evaluation of patient's response to treatment; frequent reassessment; and, discussions with other providers. This critical care time was performed to assess and manage the high probability of imminent, life-threatening deterioration that could result in multi-organ failure. It was exclusive of separately billable procedures and treating other patients and teaching time. Please see my other sections and the rest of the note for further information on patient assessment and treatment. Stability Stability form required: No Heart Score Heart Score: Heart Score Response (Comments) Value History N/A 0 EKG N/A 0 Age N/A 0 Risk Factors N/A 0 Troponin N/A 0 Total 0 I personally scribed for THIEN RAUSCH MD ([email or web address]) on 12/03/24 at 22:41. El ectronically submitted by Joaquin Freeman [email or web address]). THIEN RAUSCH MD Dec 03, 2024 22:41
[2024-12-03 22:51] LABS: Alanine Aminotransferase 48 U/L (7-40); Alkaline Phosphatase 644 U/L (46-116); Aspartate Aminotransferase 58 U/L (13-40); Bilirubin, Total 1.3 mg/dL (0.2-1.0); Blood Urea Nitrogen 71 mg/dL (9-23); Calcium 8.6 mg/dL (8.7-10.4); Glucose 125 mg/dL (74-106); Sodium 131 mmol/L (136-145)
[2024-12-03] MEDS: DEXTROSE (50%) 50ML SYRG IV ONE (23:00)
[2024-12-03] MEDS: CALCIUM GLUC 1,000mg/50ml-NS 50 ML IV SCH (23:20)
[2024-12-03 23:25] LABS: Band Neutrophils % (manual) 1; Lymphocytes % (manual) 24 (10.0-50.0); Monocytes % (manual) 5 (0-12)
[2024-12-03 23:26] LABS: Platelet Estimate Adequate
[2024-12-03] MEDS: InsuLIN REG 1unit/0.01ml Soln (100units/ml) IV ONE (23:47)
[2024-12-03] MEDS: SODIUM BICARB 8.4% 50Meq/50ml SYR Vial IV ONE (23:48)
[2024-12-03] MEDS: SODIUM CHLORIDE 0.9% 1,000 ML IV ONE (23:49)
[2024-12-03] MEDS: VANCOMYCIN 1GM/200ML PM 200 ML IV ONE (23:49)
[2024-12-03] MEDS: ONDANSETRON HCL 4 MG/2 ML VIAL IV ONE (23:49)
[2024-12-03] MEDS: ACETAMINOPHEN IV 1000 MG/100ML (10MG/ML) IV STA (23:50)
[2024-12-04] VITALS (13 sets, daily range): BP systolic 106–143; BP diastolic 47–69; PULSE 82–110; RESP 12–24; TEMP 98–99.8; O2SAT 90–99
--- NOTE | 2024-12-04 00:16 | DVH ---
CHEST RADIOGRAPH Indication: fever Technique: Single frontal view of the chest was obtained COMPARISON: None FINDINGS: Lines and Tubes: None Lungs: Elevation of right hemidiaphragm. Lung volumes are low. Bibasilar subsegmental atelectasis/con solidation. No evidence of pulmonary edema. Pleura: No effusion. No pneumothorax. Cardiomediastinal contours: [id number] cardiomegaly. Probable atrial appendage clip. IMPRESSION: Low lung volumes. Bibasilar subsegmental atelectasis/consolidation.
[2024-12-04] MEDS: CEFEPIME 2GM/50ML NS 50 ML IV ONE (00:25)
[2024-12-04] MEDS ORDERED: METO25TA93 PO (03:41)
[2024-12-04] MEDS ORDERED: CLOP75TA70 PO (03:41)
[2024-12-04] MEDS ORDERED: ATOR-47 (03:41)
[2024-12-04] MEDS ORDERED: TRAM50TA2 PO (03:41)
[2024-12-04] MEDS ORDERED: BENZ100C97 PO (03:41)
--- NOTE | 2024-12-04 04:20 | DVHHPRES ---
History of Present Illness Resident Creating Document: SAVANNAH ROSE Reason for Visit: FEVER History of Present Illness Patient is a 59-year-old male with a past medical history of CO, diabetes, hypertension, hyperlipidemia, CAD status post quadruple bypass and a recent ischemic stroke presented to the ED with persistent fever (temperature 101.2). Patient was seen at the hospital for multivessel disease CAD for which he was transferred to [facility] for CABG in 04/2025. Later in 10/2024, patient presented to [facility] due to weakness from his baseline. MRI ( 11/03/2024) revealed "scattered punctate foci of acute ischemia involving bilateral cerebral white matter, corpus callosum, and the medulla" Since his CABG and the stroke, patient has not being able to walk yet. He therefor had Jones's catheter placed. Per the patient, the Jones's catheter has never been change in the last 30 days and for the past few days, patient has been having persistent fever with chills and that prompted the ED visit. On arrival, his Jones's catheter contain brownish urine signifying a possibility of trauma. He denies chest pain, nauseas or vomiting. He received Tylenol and antibiotics He also complained of sacral wound. Past medical history: diabetes, hypertension, hyperlipidemia, CO, and significant CAD, recent CVA Surgical history: Quadruple bypass on October 21, 2004 Social history: Patient recently stay at home, does not drink or smoke Family history: Family history noncontributory Medications: patient is currently on lisinopril, atorvastatin, clopidogrel, and metoprolol Review of Systems Review of Systems Constitutional: fever, no chills no feeling of malaise HEENT: Denies headache, ear pain, ear discharges, conjunctivitis, nasal discharge throat pain Cardiovascular: Denies chest pain, palpitation, orthopnea, PND, or pedal edema Respiratory: Denies shortness of breath, cough, sputum production, hemoptysis, GI: Denies abdominal pain, nausea, vomiting, diarrhea, hematemesis, hematochezia, : Denies frequency, urgency, hematuria, Endocrine: Denies unintentional weight gain or weight loss, feeling of hot flashes, Saeed: Denies easy bruising, bleeding disorders, epistaxis Musculoskeletal: Denies joint pains, muscle aches Psych: No evidence of depression, radha, suicidal ideation Allergies: Coded Allergies: NO KNOWN ALLERGIES (Unverified , 12/03/24) Exam Vital Signs Vital Signs Date Time Temp Pulse Resp B/P (MAP) Pulse Ox O2 Delivery O2 Flow Rate FiO2 12/04/24 01:06 82 18 94 Room Air* 0 21 12/04/24 00:00 98.2 102/50 (67) 98.2 Exam General Appearance: Alert, Oriented X3, Cooperative, No acute distress HEENT: Atraumatic, PERRLA, EOMI, Mucous membrane moist/pink Respiratory: Clear to auscultation, Normal air movement Cardiovascular: surgical scar Regular rate, Normal S1, Normal S2, No murmurs, no chest wall tenderness Abdominal: surgical scar, NO distention, no tenderness, bowel sounds present, no scars noted Extremities: No clubbing, No cyanosis, No edema, Normal pulses, No tenderness/swelling, muscle atrophy Skin: No rashes, No breakdown, No significant lesion, dry skin, sacral wound Neuro: bed bound Normal speech, Strength at 5/5 X2 ext, Normal tone, Sensation intact, Cranial nerves 3-12 NL, Reflexes 2+ Psych/Mental Status: Mental status NL, Mood NL Labs/Xrays Labs Test 12/04/24 00:21 12/03/24 21:49 12/03/24 21:35 Range/Units Troponin I High Sensitivity 26 </=54 ng/L Lactic Acid Level 1.4 0.4-2.0 mmol/L White Blood Count 3.4 L 4.4-10.8 10^3/uL Red Blood Count 3.13 L 4.5-5.90 10^6/uL Hemoglobin 8.8 L 13.5-17.5 g/dL Hematocrit 26.4 L 41.0-53.0 % Mean Corpuscular Volume 84.2 80.0-100.0 fL Mean Corpuscular Hemoglobin 27.9 L 28.0-32.0 pg Mean Corpuscular Hemoglobin Concent 33.2 32.0-36.0 g/dL Red Cell Distribution Width 16.2 H 11.8-14.3 % Platelet Count 260 140-450 10^3/uL Mean Platelet Volume 8.1 6.9-10.8 fL Neutrophils (%) (Auto) 37.0-80.0 % Lymphocytes (%) (Auto) 10.0-50.0 % Monocytes (%) (Auto) 0.0-12.0 % Basophils (%) (Auto) 0.0-2.0 % Neutrophils # (Auto) 1.6-8.6 10 ^3/uL Lymphocytes # (Auto) 0.4-5.4 10 ^3/uL Monocytes # (Auto) 0-1.3 10 ^3/uL Differential Total Cells Counted 100.0 100 Neutrophils % (Manual) 70 37.0-80.0 Band Neutrophils % (Manual) 1 Lymphocytes % (Manual) 24 10.0-50.0 Monocytes % (Manual) 5 0-12 Eosinophils % (Manual) 0 0-7 Basophils % (Manual) 0 0.0-2.0 Metamyelocytes % (manual) 0 Myelocytes % (Manual) 0 Promyelocytes % (Manual) 0 Blast Cells % (Manual) 0 Reactive Lymphocytes 0 Platelet Estimate Adequate [place] Cells Few Schistocytes Few Sodium Level 131 L 136-145 mmol/L Potassium Level 6.0 *H 3.5-5.1 mmol/L Chloride Level 100 98-107 mmol/L Carbon Dioxide Level 22 20-31 mmol/L Anion Gap 9 5-15 Blood Urea Nitrogen 71 H 9-23 mg/dL Creatinine 2.77 H 0.700-1.30 mg/dL Glomerular Filtration Rate Calc 25 >90 mL/min BUN/Creatinine Ratio 25.6 H 10.0-20.0 Serum Glucose 125 H 74-106 mg/dL Calcium Level 8.6 L 8.7-10.4 mg/dL Total Bilirubin 1.3 H 0.2-1.0 mg/dL Aspartate Amino Transferase (AST) 58 H 13-40 U/L Alanine Aminotransferase (ALT) 48 H 7-40 U/L Alkaline Phosphatase 644 H 46-116 U/L Total Protein 6.8 5.7-8.2 g/dL Albumin 3.0 L 3.2-4.8 g/dL Assessment/Plan Assessment/Plan Assessment Sepsis Pneumonia (Bibasilar subsegmental atelectasis/consolidation) Weakness Status post CABG GOPAL on CKD stage 4, ( CR: baseline 2.16) Sacral wounds,maybe source of infection Recent CVA ( 10/2024) Hyponatremia Hyperkalemia, monitor the electrolytes closely on the EKG left leg trauma ( over a year) Vitamin D deficiency prediabetes Anemia in the the setting of CAD transfuse at hgb: 8 . Transfuse 1 PRBC PLANS Pending Urinalysis Respiratory infectious work up Continue antibiotics ( Vancomycin and Cefepime) Keep on telemetry--> Transaminitis IV fluid judicious use wound consult wound culture HOLD antihypertensives Renal US Nephrology consult Patient is very sick. Monitor closely. Probably ICU status Diet: Modified renal diet DVT prophylaxis:SCD GI: Protection: Protonix Goal of care discussed for more than 30 minute: Full code Case and plan discussed with Dr. Vee Plan discussed with: Patient My Orders Orders - SAVANNAH ROSE RESIDENT Procedure Category Date Status Time Admit ADMIT 12/04/24 Transmitted 03:23 Code Status CODE 12/04/24 Transmitted 03:23 Vital Signs DUGLAS 12/04/24 In Process 03:23 Review Orders With [facility] 12/04/24 In Process Adm. 03:23 Sodium Chloride 0.9% PHA 12/04/24 Logged 03:30 Acetaminophen Tablet PHA 12/04/24 Logged (Tylenol Tablet) 03:30 Notify Md Of Changes [facility] 12/04/24 In Process From Base 03:23 Advance Directive DUGLAS 12/04/24 In Process 03:23 Chest Two Views XY 12/05/24 Logged Routine 04:00 Patient Condition ORDERS 12/04/24 Transmitted 03:23 Allergies DUGLAS 12/04/24 In Process 03:23 Ondansetron Hcl PHA 12/04/24 Logged (Zofran) 03:30 Enoxaparin Sodium PHA 12/04/24 Logged (Lovenox) 10:00 Notify Of Changes [facility] 12/04/24 In Process From Base 03:23 Mining Teacher For [facility] 12/04/24 In Process 24 Hours 03:23 Complete Blood Count LAB 12/04/24 Logged 03:23 Drug Screen LAB 12/04/24 Logged 03:23 Thyroid Stimulating LAB 12/04/24 Logged Hormone 03:23 Lactic Acid W/ Reflex LAB 12/05/24 Verified Order 04:00 Comprehensive LAB 12/04/24 Logged Metabolic Panel 03:23 Vitamin D, 25-Hydroxy LAB 12/04/24 Logged 03:23 Urinalysis LAB 12/04/24 Logged 03:23 Cefepime 1gm/ 50ml PHA 12/04/24 Logged (Maxipime 1gm/50ml) 10:00 Date of Service: Dec 04, 2024 Billing Provider: LONDON VEE MD Common Visit Codes: [id number] INP/OBS CARE (HIGH) SAVANNAH ROSE RESIDENT Dec 04, 2024 04:20 LONDON VEE MD Dec 04, 2024 15:49
[2024-12-04] MEDS: SODIUM CHLORIDE 0.9% 1,000 ML IV SCH ×2 (04:23→06:56)
[2024-12-04 05:18] LABS: Hematocrit 23.5 % (41.0-53.0); Hemoglobin 7.6 g/dL (13.5-17.5); Mean Corpuscular Hgb Conc. 32.4 g/dL (32.0-36.0); Red Blood Cells 2.78 10^6/uL (4.5-5.90); Red Cell Distribution Width 16.5 % (11.8-14.3)
[2024-12-04 05:20] LABS: Mean Corpuscular Hemoglobin 27.4 pg (28.0-32.0); Mean Corpuscular Volume 84.6 fL (80.0-100.0); Platelet Count (auto) 210 10^3/uL (140-450); White Blood Cell 3.6 10^3/uL (4.4-10.8)
[2024-12-04 05:24] LABS: Band Neutrophils % (manual) 0; Basophils % (manual) 0 (0.0-2.0); Blast Cells 0; Eosinophils % (manual) 0 (0-7); Metamyelocytes % 0; Myelocytes % 0; Promyelocytes % 0; Reactive Lymphocytes 0
[2024-12-04 05:35] LABS: Alanine Aminotransferase 41 U/L (7-40); Albumin 2.6 g/dL (3.2-4.8); Alkaline Phosphatase 539 U/L (46-116); Anion Gap 7 (5-15); Aspartate Aminotransferase 54 U/L (13-40); Bilirubin, Total 1.1 mg/dL (0.2-1.0); Blood Urea Nitrogen 77 mg/dL (9-23); Calcium 8.8 mg/dL (8.7-10.4); Carbon Dioxide 22 mmol/L (20-31); Chloride 101 mmol/L (98-107); Glucose 122 mg/dL (74-106); Potassium 5.4 mmol/L (3.5-5.1); Sodium 130 mmol/L (136-145)
[2024-12-04] MEDS ORDERED: DEXTROSE (50%) 50ML SYRG IV PRN (06:15)
[2024-12-04] MEDS: ALBUTEROL SULF 2.5 MG/0.5ML(0.5%) NEB SOLN NEB ONE (06:22)
[2024-12-04] MEDS: FUROSEMIDE 20 MG/2 ML VIAL IV ONE (06:34)
[2024-12-04] MEDS: SODIUM BICARB 8.4% 50Meq/50ml SYR INJ IV ONE (06:35)
[2024-12-04] MEDS: SODIUM ZIRCONIUM CYCL 10 GM PAK PO ONE (06:35)
[2024-12-04 06:36] LABS: Lymphocytes % (manual) 23 (10.0-50.0); Monocytes % (manual) 14 (0-12)
[2024-12-04] MEDS: InsuLIN REG 1unit/0.01ml Soln (100units/ml) IV ONE (06:36)
[2024-12-04 06:37] LABS: Platelet Estimate Adequate
[2024-12-04] MEDS ORDERED: VANCOMYCIN PER PHARMACY 0 MG IV SCH (06:45)
[2024-12-04] MEDS: ACCU-CHEK COMFORT CURVE STRIP VI SCH (06:56)
[2024-12-04] MEDS: InsuLIN REG 1unit/0.01ml Soln (100units/ml) SC SCH (06:57)
[2024-12-04] MEDS: PANTOPRAZOLE 40 MG/10 ML VIAL INJ IV SCH (07:00)
[2024-12-04] MEDS: CALCIUM GLUC 1,000mg/50ml-NS 50 ML IV ONE (07:01)
[2024-12-04 07:02] LABS: COVID19 ANTIGEN SOFIA FIA NEGATIVE (NEGATIVE); Rapid Influenza A Negative (Negative); Rapid Influenza B Negative (Negative)
[2024-12-04 07:29] LABS: Hemoglobin 7.9 g/dL (13.5-17.5)
[2024-12-04 07:34] LABS: INR 1.12 (0.9-1.15); Prothrombin Time 11.7 sec (9.3-11.8)
--- NOTE | 2024-12-04 08:29 | ECG ---
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
[2024-12-04 09:05] LABS: Erythrocyte Sedimentation Rate 110 mm/hr (0-20)
--- NOTE | 2024-12-04 09:46 | DVH ---
Procedure: CT CHEST WITHOUT CONTRAST Reason for study/Clinical History: RULE mediastinal abscess Comparison Study: Chest radiograph performed on 12/03/2024 Exam Date: 12/04/2024 08:34 AM TECHNIQUE: Multidetector CT of the chest was performed from the lung apices to the upper abdomen with out the use of intravenous contract. Coronal and sagittal multiplanar reformats were performed. Radiation Dose Information: CT Dose: CTDI volume is 11.81 mGy. Dose-length product is 402.91 mGy*cm The dose indicators for CT are the volume Computed Tomography (CT) Dose Index (CTDIvol) and the Dose Length Product (DLP), and are measured in units of mGy and mGy-cm, respectively. These indicators are not patient dose, but values generated from the CT scanner acquisition factors. The report includes radiation exposure data for exposures received during this examination. FINDINGS: Lower neck: 7 mm hypodense right thyroid nodule Lungs: Bilateral lower lobe opacities. Pleura: Small bilateral pleural effusions. No pneumothorax. Central airways: Patent. Heart/Vascular Structures: Normal heart size. Postsurgical changes in the stomach. Trace pericardial effusion. Cardiomegaly. Coronary artery calcifications. Normal caliber thoracic aorta and main pulmo nary artery. Mediastinum: Trace retrosternal fat stranding and fluid. No definite fluid collection. No hilar lymp hadenopathy. Subcentimeter lymph nodes in the retrosternal space. Subcentimeter left supraclavicula r lymph nodes. No axillary lymphadenopathy. Musculoskeletal: No acute osseous abnormality. Status post median sternotomy. Soft tissues: Normal. Upper abdomen: Limited portions of the upper abdomen are unremarkable. IMPRESSION: 1. Status post median sternotomy. No cortical destruction. Substernal soft tissue density and strandi ng without a large fluid collection. Fat stranding is nonspecific and should be correlated with timin g of surgery. Alternatively this could reflect an infectious or inflammatory etiology. 2. Small bilateral pleural effusions and passive atelectasis. 3. Cardiomegaly. Radiation optimization: All CT scans at this facility use at least one of these dose optimization bryant hniques: automated exposure control mA and/or kV adjustment per patient size (includes targeted exam s where dose is matched to clinical indication) or iterative reconstruction.
--- NOTE | 2024-12-04 09:48 | DVH ---
INDICATION: LFT deranged TECHNIQUE: Multiple real-time sonographic images were obtained of the right upper quadrant. COMPARISON: None FINDINGS: The liver demonstrates coarsened echotexture without focal mass lesions. The liver measures 17 cm. There is no intrahepatic or extrahepatic ductal dilatation. The common duct measures 4 mm. Trace ascites. The gallbladder is without evidence of stone or sludge. Multiple gallbladder polyps measuring up to 0 .4 cm. The gallbladder wall measures 4 mm and is within normal limits. The right kidney measures 12 cm. The right kidney is normal in contour, size, and shape. The echogen icity is normal. There is no hydronephrosis. The pancreas is not well visualized due to overlying bowel gas. Partially visualized small trace pleural effusion. IMPRESSION: 1. Coarsened liver echotexture suggestive of chronic liver disease. Trace ascites. Partially visuali zed trace right pleural effusion. 2. Gallbladder polyps measuring up to 0.4 cm. FOLLOW UP RECOMMENDATIONS: Extremely low-risk polyps (pedunculated [id number]-wall or thin stalk): <9 mm: no follow-up (FU) 10-14 mm: FU at 6, 12 and 24 months > 15 mm: surgical consult Low-risk polyps (pedunculated with a thick or wide stalk, or sessile): < 6 mm: no follow-up 7-9 mm follow-up ultrasound at 12 months 10-14 mm: follow-up ultrasound at 6, 12, 24, and 36 months vs surgical consult > 15 mm: surgical consult Intermediate risk (focal wall-thickening >4mm adjacent to polyp): < 6 mm: FU US at 6, 12, 24, 36 months vs surgical consult > 7 mm: surgical consult Daljit Varela, Nolberto Haynes, Frances Gonzalez et al. Management of Incidentally Detected Gallbladder Polyps: Society of Radiologists in Ultrasound Consensus Conference Recommendations. Radiology. 2021;:[id number].
[2024-12-04] MEDS ORDERED: ENOXAPARIN SOD 40 MG/0.4 ML SYRINGE SC SCH (10:00)
--- NOTE | 2024-12-04 11:58 | DVHPNRES ---
Progress Note Date Seen: Dec 04, 2024 Resident Creating Document: ROMY CORONA RESIDENT Medical Necessity Reason Pt with a Central, PICC or Fol: No Subjective Review of Systems Mr. Vu is a 59-year-old mg past medical history of coronary artery disease status post CABG 10/2024, bilateral cerebral white matter October 2024, status post bed bound and chronic indwelling Jones, hypertension hyperlipidemia who was brought to the ER by the family with a chief complaint of heavy breathing, fever, chills and anuria for the past 3 days. 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 Patient also reported dysuria and abdominal discomfort. He also reports heavy breathing and mild nonproductive cough. Per daughter, patient has a wound in his back and is also draining white pus- like substance. On arrival, patient was febrile at 101.2 F, tachycardic, blood pressure 144/77 and requiring 4 L oxygen supplementation. White cell was 3.6, hemoglobin 8.8 and hematocrit 23. Patient had hyperkalemia, potassium was 6 which downtrended to 5.4. Creatinine 2.9 and BUN 77. Patient's Jones catheter was removed given a dose placed more than a month, the patient does not urinate on his own, bladder scan showed empty bladder, nephrology was consulted. Chest x-ray shows bibasilar consolidation. The patient was started on IV vancomycin and IV cefepime along with IV fluids. Has mildly elevated transaminitis. Past medical/surgical history: See above Home medication: Atorvastatin, clopidogrel, lisinopril, metoprolol 25 daily Patient seen and examined at bedside. Cardiology consulted given CT findings of substernal soft tissue density. Objective vital signs Vital Sign Date Time Temp Pulse Resp B/P (MAP) Pulse Ox O2 Delivery O2 Flow Rate FiO2 12/04/24 11:20 98.3 95 14 120/64 98.3 12/04/24 08:00 97 12/04/24 07:20 Nasal Cannula* 2 28 Total Intake and Output 12/03/24 12/03/24 12/04/24 15:00 23:00 07:00 Intake Total 1337.5 ml Balance 1337.5 ml medications Current Medications Medications Dose Ordered Sig/Shavon Route Start Time Stop Time Status Last Admin Dose Admin Acetaminophen 650 mg Q6HP PRN PO 12/04/24 03:30 Ondansetron HCl 4 mg Q4HP PRN IV 12/04/24 03:30 Cefepime HCl 50 ml @ 12.5 mls/hr Q24H IV 12/04/24 21:00 Diagnostic Test (Pha) 1 strip ACHS 12/04/24 07:00 12/04/24 06:56 1 STRIP Insulin Human Regular ACHS SC 12/04/24 07:00 Sodium Chloride 1,000 ml @ 100 mls/hr Q10H IV 12/04/24 06:30 12/04/24 06:56 100 MLS/HR Vancomycin HCl 0 ml @ 0 mls/hr UD IV 12/04/24 06:45 Pantoprazole Sodium 40 mg BID IV 12/04/24 06:45 12/04/24 10:05 40 MG Examination Patient lying in bed, in no acute distress General: Afebrile, palor, mucosae are moist Cardiovascular: Tachycardic but regular S1 and S2. No murmurs, gallops or rubs. No JVD elevation. No pedal edema Respiratory: Normal B/L air entry on 2 L NC. Clear lung sounds on auscultation Abdomen: Soft, nontender, nondistended, normoactive bowel sounds, no rebound tenderness, no organomegaly, no masses. Patient has a stage II sacral decubitus ulcer, with erythema, not draining actively Genitourinary: Deferred MSK/skin: CABG surgical scars Neurological: Residual left lower extremity weakness.. Pupils are isocoric and reactive. Psych/Mental Status: A/Ox3 laboratory and microbiology Laboratory Tests 12/04/24 07:00 12/04/24 04:50 Test 12/04/24 04:50 Range/Units Serum Glucose 122 H 74-106 mg/dL Labs and/or images reviewed: Labs reviewed by me, Image(s) reviewed by me Problem List/Assessment/Plan Problem List/Assessment/Plan Sepsis secondary to UTI and pneumonia Acute cystitis and urinary retention Chronic indwelling Jones Community-acquired pneumonia, positive and negative Acute hypoxic respiratory failure secondary to above WBC 3.6 on arrival Chest x-ray shows bibasilar consolidation Urine studies pending Jones catheter removed 12/03 by the ER IV vancomycin and IV cefepime started 12/03 Continue IV fluids with IV NS Blood culture pending CAD Status post CABG 10/[address] shows Substernal soft tissue density and stranding without a large fluid collection. Fat stranding is nonspecific and should be correlated with timing of surgery. Alternatively this could reflect an infectious or inflammatory etiology. Small bilateral pleural effusions and passive atelectasis.Cardiomegaly. Cardiology consulted- recommended continuing dual antiplatelet at this time. Repeat echo pending. Anemia secondary to CKD status post 1 RBC transfusion Hemoglobin 7.6 1 RBC transfused 12/04 GOPAL, likely vasomotor superimposed on CKD stage 3B Hyperkalemia secondary to CKD Hyponatremia Hyperparathyroidism Nephrology consulted-recommended kidney ultrasound, continue Flomax, obtain UA and urine culture by straight cath Kidney Ultrasound shows Unremarkable sonographic study of the bilateral kidneys and urinary bladder. Calcium gluconate given, potassium decreased from 6-4.8 Creatinine 2.7 on arrival increasing to 2.9 PTH 15 Transaminitis secondary to chronic liver disease Gallbladder polyps Liver ultrasound shows: Coarsened liver echotexture suggestive of chronic liver disease. Trace ascites. Partially visualized trace right pleural effusion. Gallbladder polyps measuring up to 0.4 cm. Stage II decubitus ulcer ? Infected Wound care consulted, wound culture pending History of CVA 11/06 Holding Plavix 75 mg daily Continue atorvastatin 40 mg which is Vitamin-D deficiency Supplemented Plan discussed with patient, daughter and at the bedside in which all questions have been answered Goals of care discussed for 20 minutes, full code status Case discussed with Dr. Andrew Plan discussed with: Patient, Spouse, Daughter (At the bedside), Other (Nurse) My Orders My Orders Orders - ROMY CORONA RESIDENT Procedure Category Date Status Time Bladder Scan ED NURSING 12/04/24 Transmitted Stool Occult Blood LAB 12/04/24 Logged 07:57 Potassium LAB 12/04/24 Logged 12:00 Urine LAB 12/04/24 Logged Protein/Creatinine Urine Sodium LAB 12/04/24 Logged 11:30 *Dr. [facility] CONS 12/04/24 Transmitted -[place] 11:30 Parathyroid Hormone LAB 12/04/24 In Process Intact 11:30 Addendum Addendum Addendum I was physically present for the vann portions of the service provided to patient by THE RESIDENT. I have reviewed the documentation, discussed the case with resident and agree with the resident's documentation except as noted. Also the patient's clinical case was discussed with the patient's nurse. This medical document was created using an electronic medical record system with computerized dictation system. Although this document has been carefully reviewed, there might still be some phonetic and typographical errors. These areas are purely typographical due to imperfections of the software programs, and do not reflect any compromise in the patient's medical care. Late signature. Date of Service: Dec 04, 2024 Billing Provider: TI ANDREW MD Common Visit Codes: 42525-[id number] INP/OBS CARE(HIGH) Secondary Visit Codes: 84659-EPIUELGI CARE PLAN 30 MINUTES (20 minutes) ROMY CORONA RESIDENT Dec 04, 2024 11:58 TI ANDREW MD Dec 05, 2024 05:29
--- NOTE | 2024-12-04 13:00 | DVHINCON2 ---
Date of service: Dec 04, 2024 Referring Physician Hospitalist Reason for Consultation Acute kidney injury History of Present Illness 59-year-old male past medical history of hypertension and chronic kidney disease, diagnosed with coronary artery disease multivessel disease requiring multivessel CABG at [place] in October of this year. His postop care was complicated by acute stroke with left-sided residual weakness and memory loss. He also reports chronic urinary retention postoperatively and was discharged with a Jones catheter. He was given outpatient urology follow-up however it has been more than a month since original Jones catheter was changed. Per family and caregiver Jones catheter noted to have increased sediment over the last few days, abnormal smell and patient was noted to complain of fever and chills. Patient was admitted with a diagnosis of urinary tract infection. Per family at bedside Jones catheter was removed in the ER it was unclear to me if a sample of urine was sent for culture Allergies: Coded Allergies: NO KNOWN ALLERGIES (Unverified , 12/03/24) Home Meds Reported Medications Lisinopril (Lisinopril) 10 Mg Tab, 1 TAB PO DAILY 12/04/24 Benzonatate (Benzonatate) 100 Mg Cap, 1 CAP PO TID 12/04/24 Tramadol Hcl (Tramadol Hcl) 50 Mg Tab, 1 TAB PO Q8HPRN PRN 12/04/24 Atorvastatin Calcium (ATORVASTATIN CALCIUM) 80 Mg Tab, 80 HS 12/04/24 Metoprolol Succinate (Metoprolol Succinate Er) 25 Mg Tab, 1 TAB PO DAILY 12/04/24 Clopidogrel Bisulfate (CLOPIDOGREL) 75 Mg Tab, 1 TAB PO DAILY 12/04/24 Current Medications Current Medications Medications (Trade) Dose Ordered Sig/Shavon Route PRN Reason Start Time Stop Time Status Last Admin Acetaminophen (Ofirmev) 1,000 mg DAILY STAT IV 12/03/24 21:37 12/03/24 21:40 DC 12/03/24 23:50 Calcium Gluconate/ Sodium Chloride 50 ml @ 100 mls/hr Q30M IV 12/03/24 23:00 12/03/24 23:59 DC 12/04/24 00:27 Sodium Chloride 1,000 ml @ 60 mls/hr [id number] IV 12/04/24 03:30 12/04/24 06:30 DC 12/04/24 04:23 Acetaminophen (Tylenol Tablet) 650 mg Q6HP PRN PO PAIN SCALE 1-3 OR TEMP>100.4 12/04/24 03:30 Ondansetron HCl (Zofran) 4 mg Q4HP PRN IV NAUSEA / VOMITING 12/04/24 03:30 Enoxaparin Sodium (Lovenox) 40 mg DAILY SC 12/04/24 10:00 12/04/24 06:53 DC Cefepime HCl 50 ml @ 12.5 mls/hr Q24H IV 12/04/24 21:00 Diagnostic Test (Pha) (Accu-Chek Comfort Curve T) 1 strip ACHS 12/04/24 07:00 12/04/24 11:30 Insulin Human Regular (InsuLIN R) ACHS SC 12/04/24 07:00 Dextrose 50 ml UD PRN IV Blood Sugar LESS THAN 60 12/04/24 06:15 12/04/24 07:02 DC Sodium Chloride 1,000 ml @ 100 mls/hr Q10H IV 12/04/24 06:30 12/04/24 06:56 Vancomycin HCl 0 ml @ 0 mls/hr UD IV 12/04/24 06:45 Pantoprazole Sodium (Protonix) 40 mg BID IV 12/04/24 06:45 12/04/24 10:05 Review of Systems Fevers, chills, weakness H&P Exam Vital Signs/I&O Vital Sign Date Time Temp Pulse Resp B/P (MAP) Pulse Ox O2 Delivery O2 Flow Rate FiO2 12/04/24 11:20 98.3 95 14 120/64 98.3 12/04/24 11:20 96 12/04/24 07:20 Nasal Cannula* 2 28 Intake and Output 12/03/24 12/04/24 19:00 07:00 Intake Total 1337.5 ml Balance 1337.5 ml Intake IV Total 1337.5 ml Physical Exam Elderly male Weak appearing Left-sided residual weakness with 2/5 muscle strength of the left lower extremity Decreased visual acuity on the left side Labs/Diagnostic Data Labs/Diagnostic Data Laboratory Tests Test 12/04/24 11:50 12/04/24 07:00 12/04/24 06:54 12/04/24 06:30 Range/Units Potassium Level 4.8 3.5-5.1 mmol/L Hemoglobin 7.9 L 13.5-17.5 g/dL Hematocrit 24.0 L 41.0-53.0 % Erythrocyte Sedimentation Rate 110 H 0-20 mm/hr Reticulocyte Count (auto) 0.77 0.5-1.5 % Prothrombin Time 11.7 9.3-11.8 sec Prothrombin Time INR 1.12 0.9-1.15 D-Dimer, Quantitative 3.43 H 0.0-0.49 mg/L FEU POC Glucose 105 113 H 70-106 mg/dl Test 12/04/24 05:30 12/04/24 04:50 12/04/24 00:21 12/03/24 22:27 Range/Units Influenza Type A Antigen Negative Negative Influenza Type B Antigen Negative Negative SARS-CoV-2 Antigen (Rapid) Negative NEGATIVE White Blood Count 3.6 L 4.4-10.8 10^3/uL Red Blood Count 2.78 L 4.5-5.90 10^6/uL Hemoglobin 7.6 L 13.5-17.5 g/dL Hematocrit 23.5 #L 41.0-53.0 % Mean Corpuscular Volume 84.6 80.0-100.0 fL Mean Corpuscular Hemoglobin 27.4 L 28.0-32.0 pg Mean Corpuscular Hemoglobin Concent 32.4 32.0-36.0 g/dL Red Cell Distribution Width 16.5 H 11.8-14.3 % Platelet Count 210 140-450 10^3/uL Mean Platelet Volume 8.3 6.9-10.8 fL Neutrophils (%) (Auto) 37.0-80.0 % Lymphocytes (%) (Auto) 10.0-50.0 % Monocytes (%) (Auto) 0.0-12.0 % Basophils (%) (Auto) 0.0-2.0 % Neutrophils # (Auto) 1.6-8.6 10 ^3/uL Lymphocytes # (Auto) 0.4-5.4 10 ^3/uL Monocytes # (Auto) 0-1.3 10 ^3/uL Differential Total Cells Counted 100.0 100 Neutrophils % (Manual) 63 37.0-80.0 Band Neutrophils % (Manual) 0 Lymphocytes % (Manual) 23 10.0-50.0 Monocytes % (Manual) 14 H 0-12 Eosinophils % (Manual) 0 0-7 Basophils % (Manual) 0 0.0-2.0 Metamyelocytes % (manual) 0 Myelocytes % (Manual) 0 Promyelocytes % (Manual) 0 Blast Cells % (Manual) 0 Reactive Lymphocytes 0 Platelet Estimate Adequate [place] Cells Few Schistocytes Few Sodium Level 130 L 136-145 mmol/L Potassium Level 5.4 H 3.5-5.1 mmol/L Chloride Level 101 98-107 mmol/L Carbon Dioxide Level 22 20-31 mmol/L Anion Gap 7 5-15 Blood Urea Nitrogen 77 H 9-23 mg/dL Creatinine 2.96 H 0.700-1.30 mg/dL Glomerular Filtration Rate Calc 23 >90 mL/min BUN/Creatinine Ratio 26.0 H 10.0-20.0 Serum Glucose 122 H 74-106 mg/dL Hemoglobin A1c 5.9 H <5.7 % A1C Calcium Level 8.8 8.7-10.4 mg/dL Magnesium Level 2.9 H 1.6-2.6 mg/dL Total Bilirubin 1.1 H 0.2-1.0 mg/dL Aspartate Amino Transferase (AST) 54 H 13-40 U/L Alanine Aminotransferase (ALT) 41 H 7-40 U/L Alkaline Phosphatase 539 H 46-116 U/L Lactate Dehydrogenase 284 H 120-246 U/L C-Reactive Protein High Sensitivity 15.49 H <1.0 mg/dL Total Protein 6.0 5.7-8.2 g/dL Albumin 2.6 L 3.2-4.8 g/dL Vitamin B12 Level 1395 H 211-911 pg/mL Vitamin D 25-Hydroxy 11.9 L 30.0-100 ng/mL Thyroid Stimulating Hormone (TSH) 0.97 0.55-4.78 uIU/mL Troponin I High Sensitivity 26 25 </=54 ng/L Test 12/03/24 21:49 12/03/24 21:35 Range/Units Lactic Acid Level 1.4 0.4-2.0 mmol/L White Blood Count 3.4 L 4.4-10.8 10^3/uL Red Blood Count 3.13 L 4.5-5.90 10^6/uL Hemoglobin 8.8 L 13.5-17.5 g/dL Hematocrit 26.4 L 41.0-53.0 % Mean Corpuscular Volume 84.2 80.0-100.0 fL Mean Corpuscular Hemoglobin 27.9 L 28.0-32.0 pg Mean Corpuscular Hemoglobin Concent 33.2 32.0-36.0 g/dL Red Cell Distribution Width 16.2 H 11.8-14.3 % Platelet Count 260 140-450 10^3/uL Mean Platelet Volume 8.1 6.9-10.8 fL Neutrophils (%) (Auto) 37.0-80.0 % Lymphocytes (%) (Auto) 10.0-50.0 % Monocytes (%) (Auto) 0.0-12.0 % Basophils (%) (Auto) 0.0-2.0 % Neutrophils # (Auto) 1.6-8.6 10 ^3/uL Lymphocytes # (Auto) 0.4-5.4 10 ^3/uL Monocytes # (Auto) 0-1.3 10 ^3/uL Differential Total Cells Counted 100.0 100 Neutrophils % (Manual) 70 37.0-80.0 Band Neutrophils % (Manual) 1 Lymphocytes % (Manual) 24 10.0-50.0 Monocytes % (Manual) 5 0-12 Eosinophils % (Manual) 0 0-7 Basophils % (Manual) 0 0.0-2.0 Metamyelocytes % (manual) 0 Myelocytes % (Manual) 0 Promyelocytes % (Manual) 0 Blast Cells % (Manual) 0 Reactive Lymphocytes 0 Platelet Estimate Adequate [place] Cells Few Schistocytes Few Sodium Level 131 L 136-145 mmol/L Potassium Level 6.0 *H 3.5-5.1 mmol/L Chloride Level 100 98-107 mmol/L Carbon Dioxide Level 22 20-31 mmol/L Anion Gap 9 5-15 Blood Urea Nitrogen 71 H 9-23 mg/dL Creatinine 2.77 H 0.700-1.30 mg/dL Glomerular Filtration Rate Calc 25 >90 mL/min BUN/Creatinine Ratio 25.6 H 10.0-20.0 Serum Glucose 125 H 74-106 mg/dL Calcium Level 8.6 L 8.7-10.4 mg/dL Total Bilirubin 1.3 H 0.2-1.0 mg/dL Aspartate Amino Transferase (AST) 58 H 13-40 U/L Alanine Aminotransferase (ALT) 48 H 7-40 U/L Alkaline Phosphatase 644 H 46-116 U/L Troponin I High Sensitivity 25 </=54 ng/L Total Protein 6.8 5.7-8.2 g/dL Albumin 3.0 L 3.2-4.8 g/dL Assessment Acute kidney injury due to sepsis +/- urinary obstruction subacute Gopal patient noted to have severe GOPAL post CABG 10/2024 Chronic kidney disease stage IIIB 09/2024 GFR 44% anemia Sepsis secondary to urinary tract infection Chronic urinary retention Jones catheter was removed by ER on this admission Obtain urinary analysis and urine culture IV fluid Patient currently receiving IV PRBC Recommend ultrasound of the kidney now that Jones catheter is removed to assess for obstructive uropathy Continue Flomax IV antibiotics Given multiple medical events over the last three months patient's baseline renal function is not established at this time we will require medical workup to assess for possible recovery. Plan discussed with: Patient PRABHU ERNANDEZ MD Dec 04, 2024 13:00
--- NOTE | 2024-12-04 13:28 | DVH ---
EXAM: US KIDNEY INDICATION: GOPAL with large prostate TECHNIQUE: Multiple real-time sonographic images of the kidneys and bladder were obtained. COMPARISON: None Findings: Right kidney measures 11.7 cm with normal contours, echotexture, and cortical thickness. No evidence of hydronephrosis, calculi, cystic or solid lesions. Left kidney measures 12.0 cm with normal contours, echotexture, and cortical thickness. No evidence o f hydronephrosis, calculi, cystic or solid lesions. Urinary bladder is unremarkable without evidence of abnormal wall thickening, mass, or calculi. Prevo id volume 469 mL. Postvoid volume was not obtained. Prostate not visualized. Left pleural effusion. Impression: 1. Unremarkable sonographic study of the bilateral kidneys and urinary bladder. 2. Left pleural effusion.
[2024-12-04] MEDS ORDERED: MORPHINE SULFATE INJ 2 MG/ml SYRG IV PRN (14:30)
[2024-12-04] MEDS: ACETAMINOPHEN 325 MG TAB PO PRN (15:46)
--- NOTE | 2024-12-04 16:45 | DVHINCON2 ---
Date Seen: Dec 04, 2024 Referring Physician MD Sarah resident Reason for Consultation Substernal soft tissue density and stranding without fluid collection on CT History of Present Illness This is a 59-year-old male patient who presents to the emergency room with chief complaint of fever, decreased appetite, confusion, and generalized weakness for approximately three days. At the time of assessment, the patient remains confused and is only alert to self and place. The patient's daughter and at bedside are able to provide an accurate history. The patient's daughter states that the patient was recently seen here last month (found under different ) in which he underwent a coronary angiogram and was found to have multivessel disease. Subsequently, he was transferred to [facility] where he underwent a triple-vessel CABG on October 22, 2024 and was then transferred back to this facility. His stay became complicated when he was found to have an acute CVA at that time. The patient was then discharged from this facility home with a Jones catheter and home health. Since his discharge on November 07, 2024, the patient's family states that the patient has been steadily declining at home. Cardiology is being consulted at time for CT findings of substernal soft tissue density and stranding without a large fluid collection. Initial twelve lead electrocardiogram reveals normal sinus rhythm without any significant ST segment changes. Initial troponin level of 25ng/L with flat trend thereafter. Significant past medical history includes severe coronary artery disease status post triple-vessel CABG on 10/22/24, congestive heart failure, hypertension, hyperlipidemia, chronic kidney disease, recent CVA in October 2024, type 2 diabetes mellitus, tobacco use, and obesity. Past Medical History Past medical history reviewed. No other significant than mentioned above. Past Surgical History Triple-vessel CABG on October 22, 2024 Family History Family history reviewed. Social History Patient has a 30 pack-year history, quit smoking approximately 11 years ago Patient denies any illicit drug use Patient denies any alcohol use Allergies: Coded Allergies: NO KNOWN ALLERGIES (Unverified , 12/03/24) Home Meds Reported Medications Lisinopril (Lisinopril) 10 Mg Tab, 1 TAB PO DAILY 12/04/24 Benzonatate (Benzonatate) 100 Mg Cap, 1 CAP PO TID 12/04/24 Tramadol Hcl (Tramadol Hcl) 50 Mg Tab, 1 TAB PO Q8HPRN PRN 12/04/24 Atorvastatin Calcium (ATORVASTATIN CALCIUM) 80 Mg Tab, 80 HS 12/04/24 Metoprolol Succinate (Metoprolol Succinate Er) 25 Mg Tab, 1 TAB PO DAILY 12/04/24 Clopidogrel Bisulfate (CLOPIDOGREL) 75 Mg Tab, 1 TAB PO DAILY 12/04/24 Home Meds Home medications reviewed. Current Medications Current Medications Medications (Trade) Dose Ordered Sig/Shavon Route PRN Reason Start Time Stop Time Status Last Admin Acetaminophen (Ofirmev) 1,000 mg DAILY STAT IV 12/03/24 21:37 12/03/24 21:40 DC 12/03/24 23:50 Calcium Gluconate/ Sodium Chloride 50 ml @ 100 mls/hr Q30M IV 12/03/24 23:00 12/03/24 23:59 DC 12/04/24 00:27 Sodium Chloride 1,000 ml @ 60 mls/hr [id number] IV 12/04/24 03:30 12/04/24 06:30 DC 12/04/24 04:23 Acetaminophen (Tylenol Tablet) 650 mg Q6HP PRN PO PAIN SCALE 1-3 OR TEMP>100.4 12/04/24 03:30 12/04/24 15:46 Ondansetron HCl (Zofran) 4 mg Q4HP PRN IV NAUSEA / VOMITING 12/04/24 03:30 Enoxaparin Sodium (Lovenox) 40 mg DAILY SC 12/04/24 10:00 12/04/24 06:53 DC Cefepime HCl 50 ml @ 12.5 mls/hr Q24H IV 12/04/24 21:00 Diagnostic Test (Pha) (Accu-Chek Comfort Curve T) 1 strip ACHS 12/04/24 07:00 12/04/24 11:30 Insulin Human Regular (InsuLIN R) ACHS SC 12/04/24 07:00 Dextrose 50 ml UD PRN IV Blood Sugar LESS THAN 60 12/04/24 06:15 12/04/24 07:02 DC Sodium Chloride 1,000 ml @ 100 mls/hr Q10H IV 12/04/24 06:30 12/04/24 06:56 Vancomycin HCl 0 ml @ 0 mls/hr UD IV 12/04/24 06:45 Pantoprazole Sodium (Protonix) 40 mg BID IV 12/04/24 06:45 12/04/24 10:05 Acetaminophen/ Hydrocodone Bitart ([place] 5/325MG Tab) 1 tab Q4HPRN PRN PO MODERATE PAIN (4-6 PAIN SCALE) 12/04/24 14:30 Morphine Sulfate 1 mg Q4HPRN PRN IV SEVERE PAIN (7-10 PAIN SCALE) 12/04/24 14:30 Review of Systems Constitutional: Generalized weakness, fever Ears, Nose, & Throat: No symptom reported Eyes: No symptom reported Neurological: No symptoms reported Pulmonary/Respiratory: No symptoms reported Cardiovascular: No symptom reported Gastrointestinal: No symptom reported Genitourinary: No symptom reported Musculoskeletal: No symptom reported Skin: No symptom reported Psychiatric: No symptom reported Endocrine: No symptom reported Hematologic/Lymphatic: No symptom reported Vital Signs Vital Signs Date Time Temp Pulse Resp B/P (MAP) Pulse Ox O2 Delivery O2 Flow Rate FiO2 12/04/24 16:16 99.8 102 20 143/69 (93) 90 99.8 12/04/24 07:20 Nasal Cannula* 2 28 Physical Exam General Appearance: Cooperative. No acute distress. Pulmonary/Respiratory: Diminished bilateral lower lobe sounds Cardiovascular/Chest: Regular rate and rhythm. Peripheral Pulses: 2+ Radial (R). 2+ Radial (L). 2+ Pedal (R). 2+ Pedal (L) Abdominal Exam: Normal bowel sounds. Ankle Exam: Negative ankle edema Lower extremities: Negative lower extremity edema Neuro/Mental Status: A/OX2, confused Thoughts/Psych: Normal thought pattern. Appropriate mood and affect. Good judgment and insight. Appearance: No acute distress. Skin Exam: Scabbed, vertical, midsternal scar. Skin warm and dry Labs/Diagnostic Data Labs Test 12/04/24 11:50 12/04/24 07:00 12/04/24 06:54 12/04/24 05:30 Range/Units Potassium Level 4.8 3.5-5.1 mmol/L Hemoglobin 7.9 L 13.5-17.5 g/dL Hematocrit 24.0 L 41.0-53.0 % Erythrocyte Sedimentation Rate 110 H 0-20 mm/hr Reticulocyte Count (auto) 0.77 0.5-1.5 % Prothrombin Time 11.7 9.3-11.8 sec Prothrombin Time INR 1.12 0.9-1.15 D-Dimer, Quantitative 3.43 H 0.0-0.49 mg/L FEU Parathyroid Hormone (Intact) 15.7 L 18.4-80.1 pg/mL POC Glucose 105 70-106 mg/dl Influenza Type A Antigen Negative Negative Influenza Type B Antigen Negative Negative SARS-CoV-2 Antigen (Rapid) Negative NEGATIVE Test 12/04/24 04:50 12/04/24 00:21 12/03/24 21:49 Range/Units White Blood Count 3.6 L 4.4-10.8 10^3/uL Red Blood Count 2.78 L 4.5-5.90 10^6/uL Mean Corpuscular Volume 84.6 80.0-100.0 fL Mean Corpuscular Hemoglobin 27.4 L 28.0-32.0 pg Mean Corpuscular Hemoglobin Concent 32.4 32.0-36.0 g/dL Red Cell Distribution Width 16.5 H 11.8-14.3 % Platelet Count 210 140-450 10^3/uL Mean Platelet Volume 8.3 6.9-10.8 fL Neutrophils (%) (Auto) 37.0-80.0 % Lymphocytes (%) (Auto) 10.0-50.0 % Monocytes (%) (Auto) 0.0-12.0 % Basophils (%) (Auto) 0.0-2.0 % Neutrophils # (Auto) 1.6-8.6 10 ^3/uL Lymphocytes # (Auto) 0.4-5.4 10 ^3/uL Monocytes # (Auto) 0-1.3 10 ^3/uL Differential Total Cells Counted 100.0 100 Neutrophils % (Manual) 63 37.0-80.0 Band Neutrophils % (Manual) 0 Lymphocytes % (Manual) 23 10.0-50.0 Monocytes % (Manual) 14 H 0-12 Eosinophils % (Manual) 0 0-7 Basophils % (Manual) 0 0.0-2.0 Metamyelocytes % (manual) 0 Myelocytes % (Manual) 0 Promyelocytes % (Manual) 0 Blast Cells % (Manual) 0 Reactive Lymphocytes 0 Platelet Estimate Adequate [place] Cells Few Schistocytes Few Sodium Level 130 L 136-145 mmol/L Chloride Level 101 98-107 mmol/L Carbon Dioxide Level 22 20-31 mmol/L Anion Gap 7 5-15 Blood Urea Nitrogen 77 H 9-23 mg/dL Creatinine 2.96 H 0.700-1.30 mg/dL Glomerular Filtration Rate Calc 23 >90 mL/min BUN/Creatinine Ratio 26.0 H 10.0-20.0 Serum Glucose 122 H 74-106 mg/dL Hemoglobin A1c 5.9 H <5.7 % A1C Calcium Level 8.8 8.7-10.4 mg/dL Magnesium Level 2.9 H 1.6-2.6 mg/dL Total Bilirubin 1.1 H 0.2-1.0 mg/dL Aspartate Amino Transferase (AST) 54 H 13-40 U/L Alanine Aminotransferase (ALT) 41 H 7-40 U/L Alkaline Phosphatase 539 H 46-116 U/L Lactate Dehydrogenase 284 H 120-246 U/L C-Reactive Protein High Sensitivity 15.49 H <1.0 mg/dL Total Protein 6.0 5.7-8.2 g/dL Albumin 2.6 L 3.2-4.8 g/dL Vitamin B12 Level 1395 H 211-911 pg/mL Vitamin D 25-Hydroxy 11.9 L 30.0-100 ng/mL Thyroid Stimulating Hormone (TSH) 0.97 0.55-4.78 uIU/mL Troponin I High Sensitivity 26 </=54 ng/L Lactic Acid Level 1.4 0.4-2.0 mmol/L Assessment Substernal soft tissue density Severe coronary artery disease status post triple-vessel CABG (on Plavix and aspirin) Chronic HFpEF, NYHA class III Hypertension Sepsis secondary to pneumonia and urinary tract infection Hyperlipidemia Hyperkalemia Anemia Transaminitis Chronic kidney disease Type 2 diabetes mellitus CVA Obesity Plan/Recommendation We will continue with following plan/recommendations (Dr. Sutton): Case discussed with . Previous transthoracic echocardiogram on 10/11/2024 reveals EF 50-55% with severe hypokinesis of the inferoposterior wall. A chest CT done on this admission reveals a substernal soft tissue density and stranding without large fluid collection. This may be secondary to recent cardiac surgery, but we will proceed by obtaining a new transthoracic echocardiogram to evaluate cardiac function as well as cardiac structure. In the meantime, continue with dual antiplatelet therapy, lipid-lowering agent, and beta-ena as BP permits. Closely monitor hemoglobin and hematocrit. Continue with close cardiac surveillance. Antibiotics per primary care team. Thank you for allowing us to care for this patient. Please call with any questions or concerns. Critical care time spent: 42 minutes This medical document was created using an electronic medical record system with voice recognition software and computerized dictation system. Although this document has been carefully reviewed, there might still be some phonetic and typographical errors. Occasional wrong-word or ``sound-alike substitutions may have occurred due to the inherent limitations of voice recognition software. These areas are purely typographical due to imperfections of the software programs and do not reflect any compromise in the patient's medical care. Please read the chart carefully and recognize, using context, where these substitutions have occurred. Plan discussed with: Patient NYHA Physical activity limitations: Class3(Marked) ordinary (activity causes symtoms) Date of Service: Dec 04, 2024 Billing Provider: TESFAYE ORTIZ Cardiology Common Codes: 48283-GICUUSZ INP/OBS CARE (High) Cardiology Consultation Codes: 69787-[id number] CONSULT <45MIN TESFAYE ORTIZ Dec 04, 2024 16:45
[2024-12-04 17:34] LABS: Urine Amorphous Crystal FEW /hpf (None Seen); Urine Bacteria FEW /hpf (None Seen); Urine Blood TRACE /uL (Negative); Urine Clarity Turbid (Clear); Urine Color Yellow (Yellow); Urine Protein, UAD 1+ (Negative); Urine Specific Gravity 1.015 (1.001-1.035); Urine Squamous Epithelial Cell FEW /hpf (<5); Urine Urobilinogen Normal (Negative); Urine WBC 1 /HPF (0-3); Urine pH 5.5 (5.0-9.0)
[2024-12-04 17:52] LABS: Protein, Urine 129.7 mg/dL (1-14)
[2024-12-04 17:55] LABS: Creatinine, Urine 70.59 mg/dL (30.0-125.0); Urine Protein/Creatinine Ratio 1.84
[2024-12-04 18:01] LABS: Amphetamine Screen, Urine Neg (NEGATIVE); Barbiturate Scree,Urine Neg (NEGATIVE); Benzodiazephine Screen, Urine Neg (NEGATIVE); Cannabinoid Screen, Urine Neg (NEGATIVE); Cocaine Screen, Urine Neg (NEGATIVE); Opiate Scree,Urine Neg (NEGATIVE); Phencyclidine Screen, Urine Neg (NEGATIVE)
[2024-12-04] MEDS: METOPROLOL SUCCINATE XL 50 MG TAB PO ONE (18:25)
[2024-12-04] MEDS: TAMSULOSIN HYDROCHLORIDE 0.4 MG CAP PO SCH (18:25)
[2024-12-04] MEDS: ATORVASTATIN 20 MG TAB PO SCH (20:01)
[2024-12-04] MEDS: CEFEPIME 1GM/ 50ML 50 ML IV SCH (20:01)
[2024-12-05] VITALS (26 sets, daily range): BP systolic 69–159; BP diastolic 27–71; PULSE 79–103; RESP 15–25; TEMP 98.6–100.4; O2SAT 90–98
[2024-12-05 05:54] LABS: Basophils # (auto) 0 10 ^3/uL (0-0.2); Basophils % (auto) 0.4 % (0.0-2.0); Eosinophils # (auto) 0 10 ^3/uL (0-0.8); Hemoglobin 8.3 g/dL (13.5-17.5); Lymphocytes # (auto) 0.5 10 ^3/uL (0.4-5.4); Monocytes # (auto) 0.3 10 ^3/uL (0-1.3); Neutrophils # (auto) 0.3 10 ^3/uL (1.6-8.6)
[2024-12-05 05:56] LABS: Eosinophils % (auto) 0.6 % (0.0-7.0); Hematocrit 25.3 % (41.0-53.0); Lymphocytes % (auto) 43.4 % (10.0-50.0); Mean Corpuscular Hemoglobin 28.2 pg (28.0-32.0); Mean Corpuscular Hgb Conc. 32.9 g/dL (32.0-36.0); Mean Corpuscular Volume 85.9 fL (80.0-100.0); Monocytes % (auto) 27.7 % (0.0-12.0); Neutrophils % (auto) 27.9 % (37.0-80.0); Nucleated Red Blood Cells % 2.4 %; Platelet Count (auto) 176 10^3/uL (140-450); Red Blood Cells 2.95 10^6/uL (4.5-5.90); Red Cell Distribution Width 16.7 % (11.8-14.3)
[2024-12-05 06:02] LABS: White Blood Cell 1.1 10^3/uL (4.4-10.8)
[2024-12-05 06:05] LABS: Alanine Aminotransferase 35 U/L (7-40); Anion Gap 8 (5-15); Chloride 102 mmol/L (98-107); Glucose 79 mg/dL (74-106)
[2024-12-05 06:07] LABS: BUN/Creatinine Ratio 21.5 (10.0-20.0); Total Protein 5.9 g/dL (5.7-8.2)
[2024-12-05 06:21] LABS: Albumin 2.5 g/dL (3.2-4.8); Alkaline Phosphatase 492 U/L (46-116); Aspartate Aminotransferase 54 U/L (13-40); Bilirubin, Total 1.4 mg/dL (0.2-1.0); Blood Urea Nitrogen 72 mg/dL (9-23); Calcium 8.3 mg/dL (8.7-10.4); Carbon Dioxide 20 mmol/L (20-31); Magnesium 2.8 mg/dL (1.6-2.6); Potassium 5.3 mmol/L (3.5-5.1); Sodium 130 mmol/L (136-145)
--- NOTE | 2024-12-05 07:01 | DVH ---
EXAM: XR Chest, 1 View CLINICAL INDICATION: rule out mediastinitis TECHNIQUE: Frontal view of the chest. COMPARISON: XY CHEST PORTABLE on DOS: 12/03/24 FINDINGS: LUNGS AND PLEURAL SPACES: See below. HEART: Cardiomegaly with mild congestion. MEDIASTINUM: Unremarkable. Normal mediastinal contour. BONES/JOINTS: Sternotomy wires. No acute fracture. OTHER FINDINGS: . . IMPRESSION: Cardiomegaly with mild congestion.
[2024-12-05 07:17] LABS: Ovalocytes FEW; Platelet Estimate Adequate
[2024-12-05] MEDS ORDERED: FUROSEMIDE 20 MG/2 ML VIAL IV ONE (09:30)
--- NOTE | 2024-12-05 10:30 | DVH ---
CT CT AB PEL WO CON-NO ORAL OR IV INDICATION: sepsis, neutropenia, urinary obstruction EXAM DATE: 12/05/2024 09:44 AM COMPARISON: None RADIATION DOSE: CTDIvol: 8.95 mGy, DLP: 631.64 mGy*cm PROCEDURE: Helical CT images were obtained of the abdomen and pelvis without IV contrast Sagittal and coronal reconstructions are provided. ORAL CONTRAST: None. ADDITIONAL IMAGES / REFORMATS: None All C T scans at this medical facility are performed using dose modulation techniques as appropriate to a p erformed exam including the following: Automated exposure control was utilized; adjustment of the MA and/or KV according to patient size; and use of iterative reconstruction technique. FINDINGS: LUNG BASE: Normal. LIVER: Normal. GALLBLADDER AND BILIARY TREE: No calcified gallstones. Normal caliber wall. No intra- or extrahepatic biliary ductal dilation. PANCREAS: Normal. SPLEEN: Normal. BOWEL: Normal. ADRENALS: Normal. KIDNEYS AND URETER: Normal. BLADDER: Gas in the bladder could be from recent instrumentation. REPRODUCTIVE ORGANS: Normal. LYMPH NODES:Retroperitoneal lymphadenopathy with a 3.3 cm in the right groin. PERITONEUM: No ascites or free air. No other fluid collection. VESSELS: Scattered atherosclerotic calcifications are noted. RETROPERITONEUM: Normal. ABDOMINAL WALL: Normal. BONES: Scattered osseous degenerative changes are noted. IMPRESSION: Retroperitoneal lymphadenopathy with a 3.3 cm in the right groin. Lymphoma is a consideration.
[2024-12-05] MEDS: ASPirin 81 mg TAB PO SCH (10:58)
[2024-12-05] MEDS: SODIUM ZIRCONIUM CYCL 10 GM PAK PO ONE (11:00)
[2024-12-05] MEDS: CLOPIDOGREL BISULFATE 75 MG TAB PO SCH (11:00)
[2024-12-05] MEDS: SODIUM BICARB 8.4% 50Meq/50ml SYR INJ IV ONE (11:00)
[2024-12-05] MEDS: METOPROLOL SUCCINATE XL 50 MG TAB PO SCH (11:10)
[2024-12-05] MEDS: FUROSEMIDE 100 MG/10ML VIAL IV ONE (12:24)
[2024-12-05 12:32] LABS: Chloride 102 mmol/L (98-107); Potassium 4.8 mmol/L (3.5-5.1)
[2024-12-05 12:33] LABS: Anion Gap 7 (5-15); Carbon Dioxide 21 mmol/L (20-31); Sodium 130 mmol/L (136-145)
[2024-12-05] MEDS: cefTRIAXone 1GM/50ML D5W 50 ML IV ONE (12:35)
[2024-12-05 12:36] LABS: Calcium 7.9 mg/dL (8.7-10.4)
[2024-12-05 12:38] LABS: BUN/Creatinine Ratio 22.2 (10.0-20.0)
[2024-12-05 12:41] LABS: Blood Urea Nitrogen 74 mg/dL (9-23); Glucose 107 mg/dL (74-106)
[2024-12-05 13:08] LABS: Erythrocyte Sedimentation Rate 88 mm/hr (0-20)
[2024-12-05] MEDS: VANCOMYCIN 750MG KIT 100 ML IV ONE (13:16)
--- NOTE | 2024-12-05 13:39 | DVHPN2 ---
Progress Note Date Seen: Dec 05, 2024 Medical Necessity Reason Pt with a Central, PICC or Fol: Yes The following are medically ne: Pond Catheter Reason for pond catheter: Bladder Retention/Obstruc Subjective Patient reports: Feels better Review of Systems: :Abnormal Objective vital signs Vital Sign Date Time Temp Pulse Resp B/P (MAP) Pulse Ox O2 Delivery O2 Flow Rate FiO2 12/05/24 12:35 99.3 88 18 111/56 (74) 98 99.3 12/04/24 20:00 Nasal Cannula* 2 28 Total Intake and Output 12/04/24 12/04/24 12/05/24 15:00 23:00 07:00 Intake Total 1100 ml 120 ml Output Total 0 ml 610 ml 500 ml Balance 1100 ml -490 ml -500 ml medications Current Medications Medications Dose Ordered Sig/Shavon Route Start Time Stop Time Status Last Admin Dose Admin Acetaminophen 650 mg Q6HP PRN PO 12/04/24 03:30 12/05/24 10:59 650 MG Ondansetron HCl 4 mg Q4HP PRN IV 12/04/24 03:30 Diagnostic Test (Pha) 1 strip ACHS 12/04/24 07:00 12/05/24 12:21 1 STRIP Insulin Human Regular ACHS SC 12/04/24 07:00 12/04/24 20:05 3 UNITS Sodium Chloride 1,000 ml @ 100 mls/hr Q10H IV 12/04/24 06:30 12/05/24 12:36 100 MLS/HR Vancomycin HCl 0 ml @ 0 mls/hr UD IV 12/04/24 06:45 Pantoprazole Sodium 40 mg BID IV 12/04/24 06:45 12/05/24 11:00 40 MG Acetaminophen/ Hydrocodone Bitart 1 tab Q4HPRN PRN PO 12/04/24 14:30 Morphine Sulfate 1 mg Q4HPRN PRN IV 12/04/24 14:30 Tamsulosin HCl 0.4 mg QPM PO 12/04/24 18:00 12/04/24 18:25 0.4 MG Atorvastatin Calcium 80 mg HS PO 12/04/24 22:00 12/04/24 20:01 80 MG Metoprolol Succinate 25 mg DAILY PO 12/05/24 10:00 12/05/24 11:10 25 MG Aspirin 81 mg DAILY PO 12/05/24 10:00 12/05/24 10:58 81 MG Clopidogrel Bisulfate 75 mg DAILY PO 12/05/24 10:00 12/05/24 11:00 75 MG Ceftriaxone Sodium 50 ml @ 100 mls/hr DAILY@09 IV 12/06/24 09:00 Examination: GENERAL:Normal, CVS:Abnormal, NEURO:Abnormal, :Abnormal laboratory and microbiology Laboratory Tests 12/05/24 12:11 12/05/24 05:13 Test 12/05/24 12:11 Range/Units Serum Glucose 107 H 74-106 mg/dL Microbiology Date/Time Source Procedure Growth Status 12/03/24 21:49 Blood Blood Culture - Preliminary NO GROWTH AFTER 24 HOURS OF INCUBATION. Resulted Problem List/Assessment/Plan Problem List/Assessment/Plan Acute kidney injury due to sepsis +urinary obstruction subacute Gopal patient noted to have severe GOPAL post CABG 10/2024 Chronic kidney disease stage IIIB 09/2024 GFR 44% anemia status post PRBC Sepsis secondary to urinary tract infection Chronic urinary retention Pond catheter was removed by ER on this admission Hyperkalemia patient has persistent urinary obstruction, Pond catheter placed back in with significant post catheter output noted. I recommend patient continue with Pond catheter and leg bag to outpatient. Recommend outpatient home health services for Pond catheter exchanges and patient should continue his outpatient appointment with Urology on December 12. IV fluid IV Lasix today to increase urinary output and improve potassium excretion Continue Flomax IV antibiotics Retroperitoneal lymphadenopathy noted to end decreased WBC workup as per primary medical team Plan discussed with: Patient My Orders My Orders Orders - PRABHU ERNANDEZ MD Procedure Category Date Status Time Straight Cath Patient ORDERS 12/04/24 Transmitted 16:30 Insert Pond Catheter DUGLAS 12/05/24 In Process 08:07 Communication Order ORDERS 12/05/24 Transmitted 08:07 Basic Metabolic Panel LAB 12/06/24 Verified 04:00 Dietary Evaluation Review Comments: 1. Encourage and monitor PO intake to meet at least 75% of his needs, 2. Low PTH, Low Ca, consider Ca supplement 3. Consider a nutrition supplement, Glucerna PO BID if PO remain at 50% or lower. 4. If renal function not improved, consider a renal specific 45g protein CCHO-60 (increased kcal) cardic diet Expected Outcomes/Goals: Improved appetite, Increased mobility, controlled DM and less uremic symptoms. wound will heal as serum glucose is controlled WNL. CC Plasma Assessment Blood Product Administration S: 1105 PRABHU ERNANDEZ MD Dec 05, 2024 13:39
--- NOTE | 2024-12-05 14:55 | DVHPNRES ---
Progress Note Date Seen: Dec 05, 2024 Resident Creating Document: KAMILLE VÁSQUEZ RESIDENT Has the PT tested + for MRSA If YES, has PT been informed?: No Medical Necessity Reason Pt with a Central, PICC or Fol: No The following are medically ne: Pond Catheter Reason for pond catheter: Bladder Retention/Obstruc Subjective Review of Systems Mr. Vu is a 59-year-old mg past medical history of coronary artery disease status post CABG 10/2024, bilateral cerebral white matter October 2024, status post bed bound and chronic indwelling Pond, hypertension hyperlipidemia who was brought to the ER by the family with a chief complaint of heavy breathing, fever, chills and anuria for the past 3 days. Per daughter at bedside, patient never followed with urology or machine sewer after he was discharged from this facility on 11/07/24, usually makes 1600 cc of urine a day, which reduced to 300 cc in the past 3 days in his urine was dark. Patient also reported dysuria and abdominal discomfort. He also reports heavy breathing and mild nonproductive cough. Per daughter, patient has a wound in his back and is also draining white pus- like substance. On arrival, patient was febrile at 101.2 F, tachycardic, blood pressure 144/77 and requiring 4 L oxygen supplementation. White cell was 3.6, hemoglobin 8.8 and hematocrit 23. Patient had hyperkalemia, potassium was 6 which downtrended to 5.4. Creatinine 2.9 and BUN 77. Patient's Pond catheter was removed given a dose placed more than a month, the patient does not urinate on his own, bladder scan showed empty bladder, nephrology was consulted. Chest x-ray shows bibasilar consolidation. The patient was started on IV vancomycin and IV cefepime along with IV fluids. Has mildly elevated transaminitis. Past medical/surgical history: See above Home medication: Atorvastatin, clopidogrel, lisinopril, metoprolol 25 daily Patient seen and examined at bedside. Cardiology consulted given CT findings of substernal soft tissue density: new echo ordered, patient is having GOPAL due to sepsis and urinary obstruction, Pond catheter placed back, cefepime was changed to meropenem, azithromycin was added to cover atypicals and hyperkalemia protocol was done, new K at noon normal, patient is having febrile neutropenia, CT scan of abdomen showed right groin lymphadenopathy concerning of lymphoma, hematology is consulted Objective vital signs Vital Sign Date Time Temp Pulse Resp B/P (MAP) Pulse Ox O2 Delivery O2 Flow Rate FiO2 12/05/24 12:35 99.3 88 18 111/56 (74) 98 99.3 12/04/24 20:00 Nasal Cannula* 2 28 Total Intake and Output 12/04/24 12/04/24 12/05/24 15:00 23:00 07:00 Intake Total 1100 ml 120 ml Output Total 0 ml 610 ml 500 ml Balance 1100 ml -490 ml -500 ml medications Current Medications Medications Dose Ordered Sig/Shavon Route Start Time Stop Time Status Last Admin Dose Admin Acetaminophen 650 mg Q6HP PRN PO 12/04/24 03:30 12/05/24 10:59 650 MG Ondansetron HCl 4 mg Q4HP PRN IV 12/04/24 03:30 Diagnostic Test (Pha) 1 strip ACHS 12/04/24 07:00 12/05/24 12:21 1 STRIP Insulin Human Regular ACHS SC 12/04/24 07:00 12/04/24 20:05 3 UNITS Sodium Chloride 1,000 ml @ 100 mls/hr Q10H IV 12/04/24 06:30 12/05/24 12:36 100 MLS/HR Vancomycin HCl 0 ml @ 0 mls/hr UD IV 12/04/24 06:45 Pantoprazole Sodium 40 mg BID IV 12/04/24 06:45 12/05/24 11:00 40 MG Acetaminophen/ Hydrocodone Bitart 1 tab Q4HPRN PRN PO 12/04/24 14:30 Morphine Sulfate 1 mg Q4HPRN PRN IV 12/04/24 14:30 Tamsulosin HCl 0.4 mg QPM PO 12/04/24 18:00 12/04/24 18:25 0.4 MG Atorvastatin Calcium 80 mg HS PO 12/04/24 22:00 12/04/24 20:01 80 MG Metoprolol Succinate 25 mg DAILY PO 12/05/24 10:00 12/05/24 11:10 25 MG Aspirin 81 mg DAILY PO 12/05/24 10:00 12/05/24 10:58 81 MG Clopidogrel Bisulfate 75 mg DAILY PO 12/05/24 10:00 12/05/24 11:00 75 MG Ceftriaxone Sodium 50 ml @ 100 mls/hr DAILY@09 IV 12/06/24 09:00 Examination General: Afebrile, palor, mucosae are moist Cardiovascular: sternal wound clean, sternum stable Tachycardic but regular S1 and S2. No murmurs, gallops or rubs. No JVD elevation. No pedal edema Respiratory: Normal B/L air entry on 2 L NC. Clear lung sounds on auscultation Abdomen: Soft, nontender, nondistended, normoactive bowel sounds, no rebound tenderness, no organomegaly, no masses. Neurological: Residual left lower extremity weakness.. Pupils are isocoric and reactive. Psych/Mental Status: A/Ox3 Patient has a stage II sacral decubitus ulcer, with erythema, not draining actively laboratory and microbiology Laboratory Tests 12/05/24 12:11 12/05/24 05:13 Test 12/05/24 12:11 Range/Units Serum Glucose 107 H 74-106 mg/dL Microbiology Date/Time Source Procedure Growth Status 12/03/24 21:49 Blood Blood Culture - Preliminary NO GROWTH AFTER 24 HOURS OF INCUBATION. Resulted Labs and/or images reviewed: Labs reviewed by me, Image(s) reviewed by me Problem List/Assessment/Plan Problem List/Assessment/Plan Septic shock secondary to neutropenic fever due to complicated UTI and pneumonia Acute cystitis and urinary retention Chronic indwelling Pond Community-acquired pneumonia, positive and negative Acute hypoxic respiratory failure secondary to above Febrile neutropenia 3.3 right groin lymphadenopathy rule out lymphoma WBC 3.6 on arrival Chest x-ray shows bibasilar consolidation Urine studies pending Pond catheter removed 12/03 by the ER IV vancomycin started 12/03 IV meropenem and azithromycin started 12/05 Continue IV fluids with IV NS; bolus given Blood culture prelim negative Today white blood cell counts of 1.[address] scan: 3.3 right groin lymphadenopathy Hematology consult Started on Levophed; upgraded to ICU CAD Status post CABG 10/[address] shows Substernal soft tissue density and stranding without a large fluid collection. Fat stranding is nonspecific and should be correlated with timing of surgery. Alternatively this could reflect an infectious or inflammatory etiology. Small bilateral pleural effusions and passive atelectasis.Cardiomegaly. Cardiology consulted- recommended continuing dual antiplatelet at this time. Repeat echo pending. Anemia secondary to CKD? status post 1 RBC transfusion Hemoglobin 8.6 1 RBC transfused 12/04 GOPAL, likely vasomotor superimposed on CKD stage 3B Hyperkalemia secondary to CKD Hyponatremia Hyperparathyroidism Nephrology consulted-recommended Pond cath due to obstruction HyperK protocol: bicarbonate, Lasix and Lokelma Kidney Ultrasound shows Unremarkable sonographic study of the bilateral kidneys and urinary bladder. Creatinine is trending high Tod PTH 15 Transaminitis secondary to chronic liver disease Gallbladder polyps Liver ultrasound shows: Coarsened liver echotexture suggestive of chronic liver disease. Trace ascites. Partially visualized trace right pleural effusion. Gallbladder polyps measuring up to 0.4 cm. Stage II decubitus ulcer ? Infected Wound care consulted, wound culture pending History of CVA 11/06 Holding Plavix 75 mg daily Continue atorvastatin 40 mg which is Vitamin-D deficiency Supplemented Plan discussed with patient, daughter and at the bedside in which all questions have been answered Goals of care discussed with the patient and his for 20 minutes, full code status 120 minutes critical care Case discussed with Dr. Andrew Plan discussed with: Patient, Spouse, Other (rn) My Orders My Orders Orders - KAMILLE VÁSQUEZ RESIDENT Procedure Category Date Status Time Blood Culture JOSE LUIS 12/05/24 In Process 09:33 Bladder Scan ED NURSING 12/05/[address] Ab Pel Wo Con-No CT 12/05/24 Resulted Oral Or Iv 09:33 Ceftriaxone 1gm/50ml PHA 12/06/24 In Process D5w (Rocephin) 09:00 Respiratory Culture JOSE LUIS 12/05/24 Logged W/ Gs 11:55 * Hematology/Oncology CONS 12/05/24 Transmitted Consult 14:10 Dietary Evaluation Review Comments: 1. Encourage and monitor PO intake to meet at least 75% of his needs, 2. Low PTH, Low Ca, consider Ca supplement 3. Consider a nutrition supplement, Glucerna PO BID if PO remain at 50% or lower. 4. If renal function not improved, consider a renal specific 45g protein CCHO-60 (increased kcal) cardic diet Expected Outcomes/Goals: Improved appetite, Increased mobility, controlled DM and less uremic symptoms. wound will heal as serum glucose is controlled WNL. Critical Care Time (mins): 120 CC Plasma Assessment Blood Product Administration S: 1105 Addendum Addendum Addendum I was physically present for the vann portions of the service provided to patient by THE RESIDENT. I have reviewed the documentation, discussed the case with resident and agree with the resident's documentation except as noted. Also the patient's clinical case was discussed with the patient's nurse. This medical document was created using an electronic medical record system with computerized dictation system. Although this document has been carefully reviewed, there might still be some phonetic and typographical errors. These areas are purely typographical due to imperfections of the software programs, and do not reflect any compromise in the patient's medical care. Late signature. Date of Service: Dec 05, 2024 Billing Provider: TI ANDREW MD Common Visit Codes: 63072-[id number] CARE 30-74 MIN (120 minutes), 84088-TSCAAUST CARE-EACH +30MIN Secondary Visit Codes: 43818-[id number] CARE PLAN 30 MINUTES (22 minutes) KAMILLE VÁSQUEZ RESIDENT Dec 05, 2024 14:55 TI ANDREW MD Dec 06, 2024 06:16
[2024-12-05] MEDS: MEROPENEM 500MG IVPB 50 ML IV ONE (16:40)
[2024-12-05] MEDS: AZITHROMYCIN 500MG/ 250ML 250 ML IV SCH (16:47)
[2024-12-05] MEDS: NOREPINEPHRINE 8 MG/250ML KIT 250 ML IV ONE (18:02)
[2024-12-05] MEDS: NOREPINEPHRINE 8 MG/250ML KIT 250 ML IV SCH (18:15)
--- NOTE | 2024-12-05 18:23 | DVHSR ---
APPROVED REPORT EXAM: Two-dimensional and M-mode echocardiogram with Doppler and color Doppler. Blood Pressure: 111/57 mmHg INDICATION evaulate cardiac function RISK FACTORS Height: 5'9", Weight: 188 DIMENSIONS LVDd4.8 (3.8-5.7cm)LA (2D)4.8 (1.9-4.0cm)Aortic Root3.7 (2.0-3.7cm) LVDs3.4 (2.5-4.0cm)LA (MM) (1.9-4.0cm)Aortic Cusp Exc2.0 (1.5-2.0cm) EF (%) 55.0 (55-70%)Rt. Atrium4.1 (1.9-4.0cm)Asc. Aorta cm IVSd1.2 (0.7-1.1cm)RV (D)4.7 (1.8-2.4cm) PWd0.9 (0.7-1.1cm) Mitral Valve MitralMitral Stenosis E wave1.21m/sMV Mean GR.mmHg A wave0.64m/sMV Peak GR.mmHg E/A ratio1.92D MVAcm2 DECEL [id number] 1/2 Timems Aortic Valve Aortic ValveAortic Stenosis V11.11m/[place] Mean GR.4mmHg V21.36m/[place] Peak GR.7mmHg LVOT Diameter2.4 (1.8-2.4cm)Doppler AVA3.69cm2 Pulmonic Valve V20.95m/s Tricuspid Valve TR Velocity2.51m/s [id number] Other Information Quality : Technically LimitedRhythm : Technically limited study due to CABG. Conclusion Sinus rhythm. Left atrial enlargement with dilation of the sinuses of Valsalva. Mild RV enlargement. Moderate aortic sclerosis with diminished excursion of the leaflets and calcification of what appears to be the right and non coronary cusps. From the short axis view there does not appear to be limita tion in motion. Normal pulmonic valve. Left ventricular function appears preserved. EF of about 50% with normal RV function. The tricuspid is normal. Doppler reveals some mild to moderate TR. No pericardial effusion masses or vegetations.
--- NOTE | 2024-12-05 18:24 | BSKYNEURO ---
[facility] Note # Demographics Consult Type: Acute Stroke Level 1 (0-4.5 hrs) Patient Location: Inpatient First Name: HEAVEN Last Name: CELIO Date of : 1965 Age: 59 Gender: Male Facility: [facility] Time of Initial Page (): 12/05/2024 17:58 Time of Return Call (): 12/05/2024 17:58 # HPI Chief Complaint: - weakness (focal) - altered mental state History: 59 yo M with recent stroke with residual L hemiparesis in Oct 2024 p/w fever, cough, lethargy, decreased urine output. He was admitted for sepsis 2/2 PNA. Stroke alert was called due to lethargy and increased L leg weakness and L facial droop. BP 70s/40s. Last Known Normal: - I have collected independent history specific to time last normal or last known well. We have collaborated with the provider and at this time, we have the most current timeline with the information that is available. 20 min ago # Scores Time of exam and NIHSS (): 12/05/2024 17:59 Level of Consciousness 1a: [1] = Not alert; but arousable by minor stim LOC Questions 1b: [1] = Answers one correctly LOC Commands 1c: [0] = Performs both tasks correctly Best Gaze 2: [0] = Normal Visual 3: [0] = No visual loss Facial Palsy 4: [2] = Partial paralysis Motor Arm Left 5a: [2] = Some effort against gravity Motor Arm Right 5b: [2] = Some effort against gravity Motor Leg Left 6a: [3] = No effort against gravity Motor Leg Right 6b: [2] = Some effort against gravity Limb Ataxia 7: [0] = Absent Sensory 8: [0] = Normal Best Language 9: [1] = [id number] aphasia Dysarthria 10: [1] = Mdwi-[id number] dysarthria Extinction and Inattention 11: [0] = No abnormality NIHSS Total: 15 # ROS Unable to obtain ROS: - altered mentation # PMH-FH-SH Past Medical History: - hyperlipidemia - hypertension - stroke - coronary artery disease # Assessment Impression: Likely recrudescence of recent stroke symptoms in the setting of septic shock # Plan Thrombolytic/Intervention: NOT IV Thrombolysis or IA Intervention candidate Thrombolytic Exclusion (< 3 hour window): - stroke within 3 months Intraarterial Exclusion: - clinical exam not consistent with presence of large vessel occlusion (LVO), can reconsider if LVO found on vascular imaging Imaging: (urgency: STAT): After patient stabilized, obtain - CT Head without contrast - CT Angiogram Head and CT Angiogram Neck Imaging: (urgency: routine): - MRI Brain without contrast Medication: Cont DAPT and Lipitor Other: - If patient has any neurological deterioration please call me back immediately - telemetry monitoring - I have discussed my recommendations with the referring provider - would not pursue stroke work-up if MRI is negative - neurology follow up as outpatient # Logistics Attestation of consult completion: The patient is located at: [facility]. Facility staff participated in the visit. I performed this telemedicine visit from my offsite office utilizing interactive 2 way audio and visual telecommunication technology. Total time spent in telemedicine encounter: I spent 21 minutes reviewing clinical data and/or imaging, obtaining history, examining the patient, communicating with the onsite care team, and in preparation of this report. # Demographics First Name: HEAVEN Last Name: PICKENS Facility: [facility] Electronically signed at 12/05/2024 18:21 ([place] Time) by James Diallo MD Yes JAMES DIALLO MD Dec 05, 2024 18:24
[2024-12-05 18:42] LABS: Base Excess -5.4 mmol/L (-2.0-3.0)
--- NOTE | 2024-12-05 18:46 | DVH ---
CHEST RADIOGRAPH Indication: sob Technique: Single frontal view of the chest was obtained COMPARISON: XY CHEST XRAY 1 VIEW on DOS: 12/05/24, XY CHEST PORTABLE on DOS: 12/03/24 FINDINGS: Lines and Tubes: Median sternotomy Lungs: Pulmonary vascular congestion Pleura: No effusion. No pneumothorax. Cardiomediastinal contours: Cardiomegaly Bones: Unremarkable IMPRESSION: No significant interval change.
--- NOTE | 2024-12-05 18:49 | DVHPN2 ---
Consult Progress Note Date Seen: Dec 05, 2024 Subjective Review of Systems: CVS:Normal, RESPIRATORY:Normal, NEURO:Abnormal Other Systems: Left facial droop Objective vital signs Vital Sign Date Time Temp Pulse Resp B/P (MAP) Pulse Ox O2 Delivery O2 Flow Rate FiO2 12/05/24 17:03 98.7 82 18 96/55 (69) 95 98.7 12/04/24 20:00 Nasal Cannula* 2 28 Total Intake and Output 12/04/24 12/04/24 12/05/24 14:59 22:59 06:59 Intake Total 1100 ml 120 ml Output Total 0 ml 610 ml 500 ml Balance 1100 ml -490 ml -500 ml medications Current Medications Medications Dose Ordered Sig/Shavon Route Start Time Stop Time Status Last Admin Dose Admin Acetaminophen 650 mg Q6HP PRN PO 12/04/24 03:30 12/05/24 10:59 650 MG Ondansetron HCl 4 mg Q4HP PRN IV 12/04/24 03:30 Diagnostic Test (Pha) 1 strip ACHS 12/04/24 07:00 12/05/24 16:43 1 STRIP Insulin Human Regular ACHS SC 12/04/24 07:00 12/04/24 20:05 3 UNITS Sodium Chloride 1,000 ml @ 100 mls/hr Q10H IV 12/04/24 06:30 12/05/24 12:36 100 MLS/HR Vancomycin HCl 0 ml @ 0 mls/hr UD IV 12/04/24 06:45 Pantoprazole Sodium 40 mg BID IV 12/04/24 06:45 12/05/24 11:00 40 MG Acetaminophen/ Hydrocodone Bitart 1 tab Q4HPRN PRN PO 12/04/24 14:30 Morphine Sulfate 1 mg Q4HPRN PRN IV 12/04/24 14:30 Tamsulosin HCl 0.4 mg QPM PO 12/04/24 18:00 12/04/24 18:25 0.4 MG Atorvastatin Calcium 80 mg HS PO 12/04/24 22:00 12/04/24 20:01 80 MG Metoprolol Succinate 25 mg DAILY PO 12/05/24 10:00 12/05/24 11:10 25 MG Aspirin 81 mg DAILY PO 12/05/24 10:00 12/05/24 10:58 81 MG Clopidogrel Bisulfate 75 mg DAILY PO 12/05/24 10:00 12/05/24 11:00 75 MG Azithromycin 250 ml @ 125 mls/hr DAILY IV 12/05/24 15:00 12/05/24 16:47 125 MLS/HR Meropenem 50 ml @ 17 mls/hr Q12HR IV 12/05/24 22:00 Norepinephrine Bitartrate 250 ml @ 3.75 mls/hr Q24H IV 12/05/24 18:15 Examination: LUNGS:Normal, CVS:Normal, NEURO:Abnormal (Left facial droop) laboratory and microbiology Laboratory Tests 12/05/24 12:11 12/05/24 05:13 Test 12/05/24 12:11 Range/Units Serum Glucose 107 H 74-106 mg/dL Problem List/Assessment/Plan Problem List/Assessment/Plan Rule out acute CVA Sepsis secondary to pneumonia and urinary tract infection Substernal soft tissue density likely secondary to recent CABG Severe coronary artery disease status post triple-vessel CABG (on Plavix and aspirin) Chronic HFpEF, NYHA class III Hypertension Hyperlipidemia Hyperkalemia Anemia Transaminitis Chronic kidney disease Type 2 diabetes mellitus CVA Obesity Plan/Recommendation (Dr. Sutton) Transthoracic echocardiogram revealed EF 50% with normal RV function and moderate aortic sclerosis with diminished excursion of the leaflets. A chest CT done on this admission reveals a substernal soft tissue density and stranding without large fluid collection. This may be secondary to recent cardiac surgery. Continue with dual antiplatelet therapy, lipid-lowering agent, and beta-ena as BP permits. Continue Code Stroke work up given latest clinical findings and follow neurological recommendations. Antibiotics per primary care team. There is no further cardiac work-up indicated at this time. Kindly call if in need to continue following up. Thank you for allowing us to care for this patient. This medical document was created using an electronic medical record system with voice recognition software and computerized dictation system. Although this document has been carefully reviewed, there might still be some phonetic and typographical errors. Occasional wrong-word or ``sound-alike substitutions may have occurred due to the inherent limitations of voice recognition software. These areas are purely typographical due to imperfections of the software programs and do not reflect any compromise in the patient's medical care. Please read the chart carefully and recognize, using context, where these substitutions have occurred. Plan discussed with: Patient, Spouse, Daughter, Other Dietary Evaluation Review Comments: 1. Encourage and monitor PO intake to meet at least 75% of his needs, 2. Low PTH, Low Ca, consider Ca supplement 3. Consider a nutrition supplement, Glucerna PO BID if PO remain at 50% or lower. 4. If renal function not improved, consider a renal specific 45g protein CCHO-60 (increased kcal) cardic diet Expected Outcomes/Goals: Improved appetite, Increased mobility, controlled DM and less uremic symptoms. wound will heal as serum glucose is controlled WNL. CC Plasma Assessment Blood Product Administration S: 1105 Date of Service: Dec 05, 2024 Billing Provider: YOU GARIBAY Cardiology Common Codes: [id number] HOSP CARE(High YOU GARIBAY Dec 05, 2024 18:49
[2024-12-05 19:00] LABS: Hemoglobin 8.5 g/dL (13.5-17.5); Red Cell Distribution Width 16.7 % (11.8-14.3)
[2024-12-05 19:02] LABS: Hematocrit 26.6 % (41.0-53.0); Mean Corpuscular Hemoglobin 27.8 pg (28.0-32.0); Mean Corpuscular Hgb Conc. 32.2 g/dL (32.0-36.0); Mean Corpuscular Volume 86.5 fL (80.0-100.0); Platelet Count (auto) 130 10^3/uL (140-450); Red Blood Cells 3.07 10^6/uL (4.5-5.90)
--- NOTE | 2024-12-05 19:02 | RESUS ---
CODE ASSIST ASSESSSMENT Initial Information Code Assist Date: Dec 05, 2024 Code Assist Time: 17:53 Location of Arrest: Central Room # 212a Provider Name Resident Dr Reynolds Time Notified: 17:53 Crash Cart Opened and Supplies: No Situation Staff concerned/worried, speci: Change LOC, SBP <90 or 10 from baseli, Change UO <50mL/4hrs Situation comment: Per family at bedside, patient suddenly began to display left sided facial droop, increased left sided weakness and increased confusion. Per family HX of CVA with left sided weakness but weakness is noted drastically more at this time. Code STROKE initiated per CATH LAB RADIOLOGY TECHNICIAN Henry. Assessment Temperature (Fahrenheit): 98.7 Blood Pressure Systolic: 78 Blood Pressure Diastolic: 38 Respiratory Rate: 24 O2 Sat by Pulse Oximetry: 95 Bedside Blood Glucose: 135 Recommendations/Interventions Procedures: Accu check, CXR Portable, PT/PTT Outcome Outcome: Transfer to ICU Team Members Team Members [place] RN, RN, RN, RN Dec 05, 2024 19:02
[2024-12-05 19:17] LABS: INR 1.19 (0.9-1.15); Partial Thromboplastin Time 37.2 SEC (24.5-34.5); Prothrombin Time 12.4 sec (9.3-11.8)
[2024-12-05 19:31] LABS: White Blood Cell 1.4 10^3/uL (4.4-10.8)
[2024-12-05 19:36] LABS: Alanine Aminotransferase 37 U/L (7-40); Anion Gap 10 (5-15); Chloride 102 mmol/L (98-107); Potassium 4.8 mmol/L (3.5-5.1)
[2024-12-05 19:37] LABS: Albumin 2.5 g/dL (3.2-4.8); Alkaline Phosphatase 490 U/L (46-116); Aspartate Aminotransferase 66 U/L (13-40); Bilirubin, Total 1.7 mg/dL (0.2-1.0); Blood Urea Nitrogen 74 mg/dL (9-23); Calcium 8.1 mg/dL (8.7-10.4); Carbon Dioxide 19 mmol/L (20-31); Glucose 117 mg/dL (74-106); Sodium 131 mmol/L (136-145)
[2024-12-05 19:42] LABS: Lactic Acid w/Reflex 2.8 mmol/L (0.4-2.0)
--- NOTE | 2024-12-05 19:42 | DVH ---
EXAM: CT STROKE CTH HISTORY: Evaluate for stroke. COMPARISON: None TECHNIQUE: Axial images were obtained and reformatted in coronal and sagittal planes. All CT scans at this medical facility are performed using dose modulation techniques as appropriate t o a performed exam including the following: Automated exposure control was utilized; adjustment of th e MA and/or KV according to patient size; and use of iterative reconstruction technique. CT Dose: CTDI volume is 59 mGy. Dose-length product is 1067 mGy*cm FINDINGS: The examination is very suboptimal due to motion degradation. The areas unaffected by motion show no signs of large acute territorial ischemia or intracranial hemorrhage. No hydrocephalus or midline sh ift noted. IMPRESSION: 1. Nearly nondiagnostic exam due to motion degradation. The areas affected by motion show no signs o f large acute territorial ischemia or intracranial hemorrhage. Recommend repeating the CT scan. Critical Result: Stroke Alert Findings discussed with VIJAY Storey , at 12/05/2024 07:15 PM, and acknowledged receipt and understa nding of the findings. ..
[2024-12-05 19:48] LABS: Band Neutrophils % (manual) 0; Basophils % (manual) 0 (0.0-2.0); Blast Cells 0; Lymphocytes % (manual) 50 (10.0-50.0); Metamyelocytes % 0; Monocytes % (manual) 18 (0-12); Myelocytes % 0; Promyelocytes % 0; Reactive Lymphocytes 0
[2024-12-05 19:49] LABS: Anisocytosis Slight; Eosinophils % (manual) 3 (0-7); Platelet Estimate Decreased
[2024-12-05 19:50] LABS: Large Platelets FEW
--- NOTE | 2024-12-05 20:28 | DVH ---
CT STROKE CTH INDICATION: COMPARISON: CT STROKE CTH on DOS: 12/05/24 TECHNIQUE: CT of the head without intravenous contrast. RADIATION DOSE: CTDIvol: 61.45 mGy, DLP: 1107.79 mGy*cm FINDINGS: There is no evidence of intracranial hemorrhage, acute infarct, extra-axial collection, mass effect, midline shift, herniation or hydrocephalus. The ventricles, sulci and cisterns are normal. The garcia- white differentiation is intact. Visualized paranasal sinuses and mastoid air cells are clear. Soft t issues and osseous structures are unremarkable. IMPRESSION: No intracranial abnormality identified.
[2024-12-05] MEDS: MEROPENEM 500MG IVPB 50 ML IV SCH (22:28)
--- NOTE | 2024-12-05 23:23 | DVHINCON2 ---
Date of service: Dec 05, 2024 Referring Physician Rufus Smith MD Reason for Consultation Acute hypoxic respiratory failure History of Present Illness A 59-year-old man with a past medical history of [place], diabetes, hypertension, hyperlipidemia, CAD s/p triple-vessel bypass, and a recent ischemic stroke who presented to the ED on 12/04/24 with persistent fever (temperature 101.2). Patient was seen at the hospital for CAD/multivessel disease for which he was transferred to [facility] for CABG on 10/20/2024. Later in 10/2024, patient presented to [facility] due to weakness from his baseline. MRI ( 11/03/2024) revealed "scattered punctate foci of acute ischemia involving bilateral cerebral white matter, corpus callosum, and the medulla." Since his CABG and the stroke, patient has not been able to walk yet. He therefore had Jones catheter placed. Per patient, the Jones catheter has never been changed in the last 30 days and for the past few days, he has been having persistent fever with chills which prompted the ED visit. On arrival, his Jones contained brownish urine, signifying a possibility of trauma. Pt denied chest pain, nauseas or vomiting. He received Tylenol and antibiotics. Pt also presented with a sacral wound. Patient was admitted for further care, and pulmonary consultation is requested for evaluation and management of acute hypoxic respiratory failure. Review of Systems: 14-point review of systems negative unless otherwise noted above. Past medical history: Diabetes, hypertension, hyperlipidemia, [place], CAD s/p CABG, recent CVA Surgical history: Quadruple bypass on October 21, 2004 Medications: Reviewed. Allergies: No known drug allergies. Family History: Heart disease Social History: Nonsmoker. No alcohol or illicit drug use. Family History: Cardiovascular disease G8 MOTHER G8 FATHER Allergies: Coded Allergies: Shellfish Allergy (Verified Allergy, Unknown, 12/10/24) Uncoded Allergies: Fish, ShellFish, Milk (Allergy, Unknown, 11/01/24) Home Meds Active Scripts Clopidogrel Bisulfate (Plavix) 75 Mg Tab, 1 TAB PO DAILY for 21 Days, #21 TAB 1 Refill Prov:MARIA C DÍAZ FILER FINISH 11/06/24 Tramadol HCl (Tramadol HCl) 50 Mg Tab, 50 MG PO Q8HP PRN for 5 Days, #15 TAB Prov:SALROMINA MORINOLPH FILER FINISH 11/06/24 Reported Medications Tamsulosin Hcl (Tamsulosin Hcl) 0.4 Mg Cap, 0.4 MG PO QPM for 30 Days, MG 11/02/24 Metoprolol Tartrate (Metoprolol Tartrate) 25 Mg Tab, 0.5 TAB PO BID, #180 TAB 1 Refill 11/02/24 Melatonin (KP MELATONIN) 3 Mg Tab, 1 TAB PO QPM, #30 TAB 2 Refills 11/02/24 Heparin Sodium (Porcine) (Heparin Sodium) 5,000 Unit/0.5 Ml Inj, 5000 UNIT IJ, INJ 11/02/24 Furosemide (Lasix) 20 Mg Tb, 1 TAB PO BID, #90 TAB 1 Refill 11/02/24 Famotidine (Famotidine) 20 Mg Tab, 20 MG PO BID for 30 Days, MG 11/02/24 Aspirin (Aspirin) 81 Mg Chw, 81 MG PO, TAB.CHEW 11/02/24 Atorvastatin Calcium (Lipitor) 80 Mg Tab, 1 TAB PO DAILY, #30 TAB 5 Refills 11/02/24 Metformin Hydrochloride (Metformin Hcl) 500 Mg Tab, 500 MG PO DAILY for 30 Days, MG 11/01/24 Atorvastatin Calcium (ATORVASTATIN CALCIUM) 10 Mg Tab, 10 MG PO DAILY, TAB 11/01/24 Lisinopril (Lisinopril) 10 Mg Tab, 1 TAB PO DAILY for 60 Days, #60 10/11/24 Current Medications Current Medications Medications (Trade) Dose Ordered Sig/Shavon Route PRN Reason Start Time Stop Time Status Last Admin Metoprolol Succinate (Toprol Xl) 25 mg DAILY PO 12/05/24 10:00 12/05/24 11:10 Aspirin 81 mg DAILY PO 12/05/24 10:00 12/05/24 10:58 Clopidogrel Bisulfate (Plavix) 75 mg DAILY PO 12/05/24 10:00 12/05/24 11:00 Ceftriaxone Sodium 50 ml @ 100 mls/hr DAILY@09 IV 12/06/24 09:00 12/05/24 15:07 DC Azithromycin 250 ml @ 125 mls/hr DAILY IV 12/05/24 15:00 12/05/24 16:47 Meropenem 50 ml @ 17 mls/hr Q12HR IV 12/05/24 22:00 12/05/24 22:28 Norepinephrine Bitartrate 250 ml @ 3.75 mls/hr Q24H IV 12/05/24 18:15 12/05/24 18:15 Vital Signs Vital Signs Date Time Temp Pulse Resp B/P (MAP) Pulse Ox O2 Delivery O2 Flow Rate FiO2 12/05/24 19:15 143/78 12/05/24 19:02 24 12/05/24 17:03 98.7 82 95 98.7 12/05/24 08:00 Nasal Cannula* 3 32 Physical Exam Gen.: Patient lying in bed in no apparent distress. On supplemental oxygen. Head: Normocephalic, atraumatic. Eyes: EOMI/PERRLA. Ears: Normal hearing. Normal anatomy. Neck/trachea: Trachea midline, supple. Nose: Normal external anatomy. Mouth: Moist mucous membranes. Chest: Decreased air entry bilaterally. No wheezing or rhonchi. Cardiovascular: Positive S1, positive S2. Regular rate and rhythm. Abdomen: Positive bowel sounds in all 4 quadrants. Soft, non-tender, non- distended. : Deferred. Rectal: Deferred. Skin: Warm, dry. Intact. Extremities: 2+ radial pulses bilaterally. No lower extremity edema. Neuro: Awake, alert, oriented x3. No gross motor or sensory deficits. Cranial nerves II through XII intact. Gait not assessed. Labs/Diagnostic Data Labs Test 12/05/24 22:15 12/05/24 21:10 12/05/24 18:37 12/05/24 18:30 Range/Units POC Glucose 114 H 70-106 mg/dl Lactic Acid Level 1.5 0.4-2.0 mmol/L Troponin I High Sensitivity 70 *H </=54 ng/L White Blood Count 1.4 #*L 4.4-10.8 10^3/uL Red Blood Count 3.07 L 4.5-5.90 10^6/uL Hemoglobin 8.5 L 13.5-17.5 g/dL Hematocrit 26.6 L 41.0-53.0 % Mean Corpuscular Volume 86.5 80.0-100.0 fL Mean Corpuscular Hemoglobin 27.8 L 28.0-32.0 pg Mean Corpuscular Hemoglobin Concent 32.2 32.0-36.0 g/dL Red Cell Distribution Width 16.7 H 11.8-14.3 % Platelet Count 130 L 140-450 10^3/uL Mean Platelet Volume 8.6 6.9-10.8 fL Neutrophils (%) (Auto) 37.0-80.0 % Lymphocytes (%) (Auto) 10.0-50.0 % Monocytes (%) (Auto) 0.0-12.0 % Basophils (%) (Auto) 0.0-2.0 % Neutrophils # (Auto) 1.6-8.6 10 ^3/uL Lymphocytes # (Auto) 0.4-5.4 10 ^3/uL Monocytes # (Auto) 0-1.3 10 ^3/uL Differential Total Cells Counted 100.0 100 Neutrophils % (Manual) 29 L 37.0-80.0 Band Neutrophils % (Manual) 0 Lymphocytes % (Manual) 50 10.0-50.0 Monocytes % (Manual) 18 H 0-12 Eosinophils % (Manual) 3 0-7 Basophils % (Manual) 0 0.0-2.0 Metamyelocytes % (manual) 0 Myelocytes % (Manual) 0 Promyelocytes % (Manual) 0 Blast Cells % (Manual) 0 Reactive Lymphocytes 0 Platelet Estimate Decreased Large Platelets Few Anisocytosis (manual) Slight [place] Cells Moderate Schistocytes Few Prothrombin Time 12.4 H 9.3-11.8 sec Prothrombin Time INR 1.19 H 0.9-1.15 Activated Partial Thromboplast Time 37.2 H 24.5-34.5 SEC Sodium Level 131 L 136-145 mmol/L Potassium Level 4.8 3.5-5.1 mmol/L Chloride Level 102 98-107 mmol/L Carbon Dioxide Level 19 L 20-31 mmol/L Anion Gap 10 5-15 Blood Urea Nitrogen 74 H 9-23 mg/dL Creatinine 3.53 H 0.700-1.30 mg/dL Glomerular Filtration Rate Calc 19 >90 mL/min BUN/Creatinine Ratio 21.0 H 10.0-20.0 Serum Glucose 117 H 74-106 mg/dL Calcium Level 8.1 L 8.7-10.4 mg/dL Total Bilirubin 1.7 H 0.2-1.0 mg/dL Aspartate Amino Transferase (AST) 66 H 13-40 U/L Alanine Aminotransferase (ALT) 37 7-40 U/L Alkaline Phosphatase 490 H 46-116 U/L B-Type Natriuretic Peptide 739.33 0-100 pg/mL Total Protein 6.0 5.7-8.2 g/dL Albumin 2.5 L 3.2-4.8 g/dL Blood Gas Specimen Type Arterial Blood Gas Sample Site Right radial Blood Gas Patient Temperature 37.0 Arterial Blood Date Drawn [id number] Arterial Blood pH 7.438 7.350-7.450 Arterial Blood Partial Pressure CO2 27.0 L 35.0-48.0 mmHg Arterial Blood Partial Pressure O2 78.8 L 83.0-108.0 mmHg Arterial Blood HCO3 17.8 L 21.0-28.0 mmol/L Arterial Blood Oxygen Saturation 94.5 94.0-98.0 % Arterial Blood Base Excess -5.4 L -2.0-3.0 mmol/L Arterial Blood Oxyhemoglobin 93.4 L 94.0-98.0 % Arterial Blood Carboxyhemoglobin 0.3 L 0.5-1.5 % Arterial Blood Methemoglobin 0.9 0.0-1.5 % Khadar Test Modified Blood Gas Total Hemoglobin 8.60 L 13.5-17.5 g/dL Blood Gas Liter Flow 6.00 Blood Gas Modality Nasal cannula FiO2 % 44.0 Test 12/05/24 12:11 12/05/24 05:13 12/04/24 16:50 12/04/24 07:00 Range/Units Erythrocyte Sedimentation Rate 88 H 0-20 mm/hr Eosinophils (%) (Auto) 0.6 0.0-7.0 % Eosinophils # (Auto) 0 0-0.8 10 ^3/uL Basophils # (Auto) 0 0-0.2 10 ^3/uL Nucleated Red Blood Cells 2.4 % Ovalocytes Few Magnesium Level 2.8 H 1.6-2.6 mg/dL C-Reactive Protein High Sensitivity 15.65 H <1.0 mg/dL Random Vancomycin Level 8.9 5-10 ug/mL Urine Color Yellow Yellow Urine Clarity Turbid H Clear Urine pH 5.5 5.0-9.0 Urine Specific [place] 1.015 1.001-1.035 Urine Protein 1+ H Negative Urine Ketones Negative Negative Urine Blood Trace H Negative /uL Urine Nitrite Negative Negative Urine Bilirubin Negative Negative Urine Urobilinogen Normal Negative mg/dL Urine Leukocyte Esterase Negative Negative /uL Urine RBC <1 0 - 3 /hpf Urine Microscopic WBC 1 0-3 /HPF Urine Squamous Epithelial Cells Few <5 /hpf Urine Amorphous Crystals Few None Seen /hpf Urine Bacteria Few H None Seen /hpf Urine Creatinine 70.59 30.0-125.0 mg/dL Urine Protein/Creatinine Ratio 1.84 Urine Sodium 23 L 40-220 mmol/L Urine Glucose Normal Normal mg/dL Urine Total Protein 129.7 H 1-14 mg/dL Urine Opiates Screen Neg NEGATIVE Urine Fentanyl Screen Neg NEGATIVE Urine Barbiturates Screen Neg NEGATIVE Urine Phencyclidine Screen Neg NEGATIVE Urine Amphetamines Screen Neg NEGATIVE Urine Benzodiazepines Screen Neg NEGATIVE Urine Cocaine Screen Neg NEGATIVE Urine Cannabinoids Screen Neg NEGATIVE Reticulocyte Count (auto) 0.77 0.5-1.5 % D-Dimer, Quantitative 3.43 H 0.0-0.49 mg/L FEU Parathyroid Hormone (Intact) 15.7 L 18.4-80.1 pg/mL Test 12/04/24 05:30 12/04/24 04:50 Range/Units Influenza Type A Antigen Negative Negative Influenza Type B Antigen Negative Negative SARS-CoV-2 Antigen (Rapid) Negative NEGATIVE Haptoglobin 316 29-370 mg/dL Hemoglobin A1c 5.9 H <5.7 % A1C Lactate Dehydrogenase 284 H 120-246 U/L Vitamin B12 Level 1395 H 211-911 pg/mL Vitamin D 25-Hydroxy 11.9 L 30.0-100 ng/mL Thyroid Stimulating Hormone (TSH) 0.97 0.55-4.78 uIU/mL Microbiology Date/Time Source Procedure Growth Status 12/04/24 18:17 Nose MRSA Screen - Final Complete 12/04/24 16:50 Voided Urine Urine Culture - Preliminary Resulted 12/03/24 21:49 Blood Blood Culture - Preliminary NO GROWTH AFTER 48 HOURS OF INCUBATION. Resulted Assessment Impression: Acute hypoxic respiratory failure Dependence on supplemental oxygen Possible urinary tract infection CAD, s/p 3-vessel CABG. Septic shock Cerebrovascular accident Left pleural effusion Atelectasis Plan: Supplemental oxygen Titrate to keep O2 sats above 92%. Patient was hypotensive, started on pressors Monitor IV site q.1 hour On Levophed for hemodynamic support Titrate to keep mean arterial pressure greater than 65 mmHg. Echocardiogram reviewed, notable for EF 50% Follow up cardiology recs. Continue antibiotics Fevers - recommend perez-cultures Incentive spirometry Monitor renal function. Monitor electrolytes. Supplement as necessary. Hyperkalemia - received hyperkalemia cocktail Monitor ins and outs. Jones for strict ins and outs DVT prophylaxis. Prognosis: Poor given patient's multiple co-morbidities. Condition: Critical Rest of plan per hospitalist and other consultants. A total of 36 minutes of critical care time was spent reviewing the patient record, examining the patient, making a diagnostic and therapeutic plan, discussing this plan with the medical personnel, following up on diagnostic studies and following the patient for clinical stability excluding any and all procedures. At least 50% of this time was spent in direct, [id number] contact. Thank you, Dr. Smith, for allowing me to participate in this patient's care. Further recommendations will depend on the patient's clinical course. Please do not hesitate to contact me if you have any questions or concerns. This medical document was created using an electronic medical record system with cocone dictation system. Although these documentations are being carefully reviewed, there may still be some phonetic and typographical changes. The errors are purely typographical, due to imperfection on the software program, and do not reflect any compromise in the patient's medical care. Plan discussed with: Patient, Other (VIJAY Leal/Dr. Smith) JERAMY CAMARA MD Dec 05, 2024 23:23
[2024-12-06] VITALS (91 sets, daily range): BP systolic 83–131; BP diastolic 44–74; PULSE 71–85; RESP 12–22; TEMP 97.7–99.4; O2SAT 93–100
[2024-12-06] MEDS: HYDROcodone-ACET 5/325MG TAB PO PRN (04:20)
[2024-12-06 05:16] LABS: Hematocrit 23.2 % (41.0-53.0); Hemoglobin 7.8 g/dL (13.5-17.5); Mean Corpuscular Hemoglobin 28.6 pg (28.0-32.0); Mean Corpuscular Hgb Conc. 33.5 g/dL (32.0-36.0); Mean Corpuscular Volume 85.5 fL (80.0-100.0); Platelet Count (auto) 147 10^3/uL (140-450); Red Blood Cells 2.72 10^6/uL (4.5-5.90); Red Cell Distribution Width 16.7 % (11.8-14.3); White Blood Cell 0.6 10^3/uL (4.4-10.8)
[2024-12-06 05:19] LABS: Band Neutrophils % (manual) 0; Basophils % (manual) 0 (0.0-2.0); Blast Cells 0; Metamyelocytes % 0; Myelocytes % 0; Promyelocytes % 0; Reactive Lymphocytes 0
[2024-12-06 05:23] LABS: Alanine Aminotransferase 37 U/L (7-40); Anion Gap 8 (5-15); BUN/Creatinine Ratio 22.5 (10.0-20.0); Carbon Dioxide 21 mmol/L (20-31); Chloride 103 mmol/L (98-107); Glucose 98 mg/dL (74-106); Potassium 4.7 mmol/L (3.5-5.1); Total Protein 5.8 g/dL (5.7-8.2)
[2024-12-06 05:24] LABS: Bilirubin, Total 1.5 mg/dL (0.2-1.0); Phosphorus 5.8 mg/dL (2.4-5.1)
[2024-12-06 05:27] LABS: Albumin 2.5 g/dL (3.2-4.8); Alkaline Phosphatase 454 U/L (46-116); Aspartate Aminotransferase 68 U/L (13-40); Calcium 7.9 mg/dL (8.7-10.4); Magnesium 2.6 mg/dL (1.6-2.6); Sodium 132 mmol/L (136-145)
[2024-12-06 05:28] LABS: Blood Urea Nitrogen 82 mg/dL (9-23)
--- NOTE | 2024-12-06 05:48 | DVH ---
EXAM: XR Chest, 1 View CLINICAL INDICATION: dyspnea TECHNIQUE: Frontal view of the chest. COMPARISON: XY CHEST PORTABLE on DOS: 12/05/24, XY CHEST XRAY 1 VIEW on DOS: 12/05/24, XY CHEST LINDA BLE on DOS: 12/03/24 FINDINGS: LUNGS AND PLEURAL SPACES: See below. HEART: Cardiomegaly with mild congestion. MEDIASTINUM: Unremarkable. Normal mediastinal contour. BONES/JOINTS: Unremarkable. No acute fracture. OTHER FINDINGS: . IMPRESSION: Cardiomegaly with mild congestion.
[2024-12-06 07:08] LABS: Eosinophils % (manual) 4 (0-7); Lymphocytes % (manual) 53 (10.0-50.0); Monocytes % (manual) 30 (0-12); Platelet Estimate Adequate
[2024-12-06 07:09] LABS: Anisocytosis Slight; Large Platelets FEW
[2024-12-06] MEDS: FUROSEMIDE 40 MG/4 ML VIAL IV ONE ×2 (08:17→18:28)
[2024-12-06] MEDS: SODIUM CHLORIDE 0.9% 1,000 ML IV SCH (08:18)
--- NOTE | 2024-12-06 08:30 | DVHINCON2 ---
Date of service: Dec 06, [address] Kait Navarro Reason for Consultation Leukopenia History of Present Illness 59 years old gentleman who has a history of coronary artery disease, [place], diabetes, hypertension, hyperlipidemia and had a quadruple bypass surgery in October 2024 at [facility]. Had a recent ischemic stroke. He came to the ER with a temperature of 101.2. Recently patient had MRI on 11/03/2024 of the brain which showed scattered punctate foci of acute ischemia involving bilateral cerebral white matter, corpus callosum and the medulla. The patient has a Jones catheter was he has not been able to walk since his stroke and the heart surgery. The catheter was not changed for over 30 days before admission. No previous history of any low white counts and I was consulted for leukopenia with a CBC showing today a white count of 0.6 hemoglobin 7.8 platelets 147 On 12/03/2024 the white count was 3.4. The patient does give a history of blood transfusion with quadruple bypass surgery. His retic count is 0.7 ESR 88 BUN 82 creatinine 3.64 calcium 7.9 total bili 1.5 AST 68 ALT 37 total protein B12 1395 Urinalysis showed few bacteria He is being treated with meropenem norepinephrine azithromycin Plavix aspirin vancomycin No complaints of fevers night sweats bruising bleeding at this time. No headaches nausea vomiting. His bowel movements are fine No previous history of any liver problems or any autoimmune disorders Past Medical History Diabetes, hypertension, hyperlipidemia, coronary artery disease and bypass surgery and IA. History of CVA Family History: Cardiovascular disease G8 MOTHER G8 FATHER Family History Unremarkable for malignancy or hematological disorders Social History No smoking or drinking. He quit drinking 30 years back. Used to do marijuana and is not doing it anymore Allergies: Coded Allergies: NO KNOWN ALLERGIES (Unverified , 12/03/24) Home Meds Reported Medications Lisinopril (Lisinopril) 10 Mg Tab, 1 TAB PO DAILY 12/04/24 Benzonatate (Benzonatate) 100 Mg Cap, 1 CAP PO TID 12/04/24 Tramadol Hcl (Tramadol Hcl) 50 Mg Tab, 1 TAB PO Q8HPRN PRN 12/04/24 Atorvastatin Calcium (ATORVASTATIN CALCIUM) 80 Mg Tab, 80 HS 12/04/24 Metoprolol Succinate (Metoprolol Succinate Er) 25 Mg Tab, 1 TAB PO DAILY 12/04/24 Clopidogrel Bisulfate (CLOPIDOGREL) 75 Mg Tab, 1 TAB PO DAILY 12/04/24 Current Medications Current Medications Medications (Trade) Dose Ordered Sig/Shavon Route PRN Reason Start Time Stop Time Status Last Admin Metoprolol Succinate (Toprol Xl) 25 mg DAILY PO 12/05/24 10:00 12/05/24 11:10 Aspirin 81 mg DAILY PO 12/05/24 10:00 12/05/24 10:58 Clopidogrel Bisulfate (Plavix) 75 mg DAILY PO 12/05/24 10:00 12/05/24 11:00 Ceftriaxone Sodium 50 ml @ 100 mls/hr DAILY@09 IV 12/06/24 09:00 12/05/24 15:07 DC Azithromycin 250 ml @ 125 mls/hr DAILY IV 12/05/24 15:00 12/05/24 16:47 Meropenem 50 ml @ 17 mls/hr Q12HR IV 12/05/24 22:00 12/05/24 22:28 Norepinephrine Bitartrate 250 ml @ 3.75 mls/hr Q24H IV 12/05/24 18:15 12/05/24 18:15 Sodium Chloride 1,000 ml @ 60 mls/hr [id number] IV 12/06/24 07:15 Vital Signs Vital Signs Date Time Temp Pulse Resp B/P (MAP) Pulse Ox O2 Delivery O2 Flow Rate FiO2 12/06/24 08:00 98.6 73 13 114/63 (80) 100 98.6 12/06/24 07:41 Nasal Cannula* 2 28 Physical Exam Moderately built and nourished, in no acute distress, alert and oriented. No jaundice Head and neck: Unremarkable for any masses or neck nodes. No conjunctival or mucosal hemorrhage Lungs: Clear Cardiovascular: S1-S2 heard well Abdomen: No organomegaly, tenderness or ascites. Bowel sounds are present. Has a Jones catheter Extremities: No clubbing edema cyanosis or calf tenderness. Skin: Unremarkable for petechia purpura ecchymosis Lymphadenopathy: In the right groin on deep palpation there is a vaguely defined mass Labs/Diagnostic Data Labs Test 12/06/24 06:22 12/06/24 04:40 12/05/24 21:10 12/05/24 18:37 Range/Units POC Glucose 108 H 70-106 mg/dl White Blood Count 0.6 #*L 4.4-10.8 10^3/uL Red Blood Count 2.72 L 4.5-5.90 10^6/uL Hemoglobin 7.8 L 13.5-17.5 g/dL Hematocrit 23.2 #L 41.0-53.0 % Mean Corpuscular Volume 85.5 80.0-100.0 fL Mean Corpuscular Hemoglobin 28.6 28.0-32.0 pg Mean Corpuscular Hemoglobin Concent 33.5 32.0-36.0 g/dL Red Cell Distribution Width 16.7 H 11.8-14.3 % Platelet Count 147 140-450 10^3/uL Mean Platelet Volume 8.4 6.9-10.8 fL Neutrophils (%) (Auto) 37.0-80.0 % Lymphocytes (%) (Auto) 10.0-50.0 % Monocytes (%) (Auto) 0.0-12.0 % Basophils (%) (Auto) 0.0-2.0 % Neutrophils # (Auto) 1.6-8.6 10 ^3/uL Lymphocytes # (Auto) 0.4-5.4 10 ^3/uL Monocytes # (Auto) 0-1.3 10 ^3/uL Differential Total Cells Counted 100.0 100 Neutrophils % (Manual) 13 L 37.0-80.0 Band Neutrophils % (Manual) 0 Lymphocytes % (Manual) 53 H 10.0-50.0 Monocytes % (Manual) 30 H 0-12 Eosinophils % (Manual) 4 0-7 Basophils % (Manual) 0 0.0-2.0 Metamyelocytes % (manual) 0 Myelocytes % (Manual) 0 Promyelocytes % (Manual) 0 Blast Cells % (Manual) 0 Reactive Lymphocytes 0 Platelet Estimate Adequate Large Platelets Few Anisocytosis (manual) Slight [place] Cells Few Sodium Level 132 L 136-145 mmol/L Potassium Level 4.7 3.5-5.1 mmol/L Chloride Level 103 98-107 mmol/L Carbon Dioxide Level 21 20-31 mmol/L Anion Gap 8 5-15 Blood Urea Nitrogen 82 *H 9-23 mg/dL Creatinine 3.64 H 0.700-1.30 mg/dL Glomerular Filtration Rate Calc 18 >90 mL/min BUN/Creatinine Ratio 22.5 H 10.0-20.0 Serum Glucose 98 74-106 mg/dL Lactic Acid Level 1.1 0.4-2.0 mmol/L Calcium Level 7.9 L 8.7-10.4 mg/dL Phosphorus Level 5.8 H 2.4-5.1 mg/dL Magnesium Level 2.6 1.6-2.6 mg/dL Total Bilirubin 1.5 H 0.2-1.0 mg/dL Aspartate Amino Transferase (AST) 68 H 13-40 U/L Alanine Aminotransferase (ALT) 37 7-40 U/L Alkaline Phosphatase 454 H 46-116 U/L Total Protein 5.8 5.7-8.2 g/dL Albumin 2.5 L 3.2-4.8 g/dL Random Vancomycin Level 15.2 H 5-10 ug/mL Troponin I High Sensitivity 70 *H </=54 ng/L Schistocytes Few Prothrombin Time 12.4 H 9.3-11.8 sec Prothrombin Time INR 1.19 H 0.9-1.15 Activated Partial Thromboplast Time 37.2 H 24.5-34.5 SEC B-Type Natriuretic Peptide 739.33 0-100 pg/mL Test 12/05/24 18:30 12/05/24 12:11 12/05/24 05:13 12/04/24 16:50 Range/Units Blood Gas Specimen Type Arterial Blood Gas Sample Site Right radial Blood Gas Patient Temperature 37.0 Arterial Blood Date Drawn [id number] Arterial Blood pH 7.438 7.350-7.450 Arterial Blood Partial Pressure CO2 27.0 L 35.0-48.0 mmHg Arterial Blood Partial Pressure O2 78.8 L 83.0-108.0 mmHg Arterial Blood HCO3 17.8 L 21.0-28.0 mmol/L Arterial Blood Oxygen Saturation 94.5 94.0-98.0 % Arterial Blood Base Excess -5.4 L -2.0-3.0 mmol/L Arterial Blood Oxyhemoglobin 93.4 L 94.0-98.0 % Arterial Blood Carboxyhemoglobin 0.3 L 0.5-1.5 % Arterial Blood Methemoglobin 0.9 0.0-1.5 % Khadar Test Modified Blood Gas Total Hemoglobin 8.60 L 13.5-17.5 g/dL Blood Gas Liter Flow 6.00 Blood Gas Modality Nasal cannula FiO2 % 44.0 Erythrocyte Sedimentation Rate 88 H 0-20 mm/hr Eosinophils (%) (Auto) 0.6 0.0-7.0 % Eosinophils # (Auto) 0 0-0.8 10 ^3/uL Basophils # (Auto) 0 0-0.2 10 ^3/uL Nucleated Red Blood Cells 2.4 % Ovalocytes Few C-Reactive Protein High Sensitivity 15.65 H <1.0 mg/dL Urine Color Yellow Yellow Urine Clarity Turbid H Clear Urine pH 5.5 5.0-9.0 Urine Specific [place] 1.015 1.001-1.035 Urine Protein 1+ H Negative Urine Ketones Negative Negative Urine Blood Trace H Negative /uL Urine Nitrite Negative Negative Urine Bilirubin Negative Negative Urine Urobilinogen Normal Negative mg/dL Urine Leukocyte Esterase Negative Negative /uL Urine RBC <1 0 - 3 /hpf Urine Microscopic WBC 1 0-3 /HPF Urine Squamous Epithelial Cells Few <5 /hpf Urine Amorphous Crystals Few None Seen /hpf Urine Bacteria Few H None Seen /hpf Urine Creatinine 70.59 30.0-125.0 mg/dL Urine Protein/Creatinine Ratio 1.84 Urine Sodium 23 L 40-220 mmol/L Urine Glucose Normal Normal mg/dL Urine Total Protein 129.7 H 1-14 mg/dL Urine Opiates Screen Neg NEGATIVE Urine Fentanyl Screen Neg NEGATIVE Urine Barbiturates Screen Neg NEGATIVE Urine Phencyclidine Screen Neg NEGATIVE Urine Amphetamines Screen Neg NEGATIVE Urine Benzodiazepines Screen Neg NEGATIVE Urine Cocaine Screen Neg NEGATIVE Urine Cannabinoids Screen Neg NEGATIVE Test 12/04/24 07:00 12/04/24 05:30 12/04/24 04:50 Range/Units Reticulocyte Count (auto) 0.77 0.5-1.5 % D-Dimer, Quantitative 3.43 H 0.0-0.49 mg/L FEU Parathyroid Hormone (Intact) 15.7 L 18.4-80.1 pg/mL Influenza Type A Antigen Negative Negative Influenza Type B Antigen Negative Negative SARS-CoV-2 Antigen (Rapid) Negative NEGATIVE Haptoglobin 316 29-370 mg/dL Hemoglobin A1c 5.9 H <5.7 % A1C Lactate Dehydrogenase 284 H 120-246 U/L Vitamin B12 Level 1395 H 211-911 pg/mL Vitamin D 25-Hydroxy 11.9 L 30.0-100 ng/mL Thyroid Stimulating Hormone (TSH) 0.97 0.55-4.78 uIU/mL Microbiology Date/Time Source Procedure Growth Status 12/04/24 18:17 Nose MRSA Screen - Final Complete 12/04/24 16:50 Voided Urine Urine Culture - Preliminary Resulted 12/03/24 21:49 Blood Blood Culture - Preliminary NO GROWTH AFTER 48 HOURS OF INCUBATION. Resulted Assessment 1. Leukopenia CT scan of the abdomen and pelvis without IV contrast showing retroperitoneal lymphadenopathy with a 3.3 cm right groin lymph node, may rule out the possibility of a lymphoma 2. Coronary artery disease bypass surgery in November 01, 2024 3. Diabetes 4. Hypertension 5. Hyperlipidemia 6. Renal insufficiency 7. Abnormal liver functions Plan/Recommendation We will suggest doing a lymph node biopsy by the radiologist Check hepatitis panel NOLBERTO double-stranded DNA CMV Christine-Deshpande virus CT-guided lymph node biopsy of the right groin lymph node, core biopsy Plan discussed with: Patient NICOLGILSON MD Dec 06, 2024 08:30
[2024-12-06] MEDS ORDERED: cefTRIAXone 1GM/50ML D5W 50 ML IV SCH (09:00)
--- NOTE | 2024-12-06 10:28 | DVHPNRES ---
Progress Note Date Seen: Dec 06, 2024 Resident Creating Document: KAMILLE VÁSQUEZ RESIDENT Has the PT tested + for MRSA If YES, has PT been informed?: No Medical Necessity Reason Pt with a Central, PICC or Fol: No The following are medically ne: Pond Catheter Reason for pond catheter: Bladder Retention/Obstruc Subjective Review of Systems Mr. Vu is a 59-year-old mg past medical history of coronary artery disease status post CABG 10/2024, bilateral cerebral white matter October 2024, status post bed bound and chronic indwelling Pond, hypertension hyperlipidemia who was brought to the ER by the family with a chief complaint of heavy breathing, fever, chills and anuria for the past 3 days. Per daughter at bedside, patient never followed with urology or central sterile technician after he was discharged from this facility on 11/07/24, usually makes 1600 cc of urine a day, which reduced to 300 cc in the past 3 days in his urine was dark. Patient also reported dysuria and abdominal discomfort. He also reports heavy breathing and mild nonproductive cough. Per daughter, patient has a wound in his back and is also draining white pus- like substance. On arrival, patient was febrile at 101.2 F, tachycardic, blood pressure 144/77 and requiring 4 L oxygen supplementation. White cell was 3.6, hemoglobin 8.8 and hematocrit 23. Patient had hyperkalemia, potassium was 6 which downtrended to 5.4. Creatinine 2.9 and BUN 77. Patient's Pond catheter was removed given a dose placed more than a month, the patient does not urinate on his own, bladder scan showed empty bladder, nephrology was consulted. Chest x-ray shows bibasilar consolidation. The patient was started on IV vancomycin and IV cefepime along with IV fluids. Has mildly elevated transaminitis. Past medical/surgical history: See above Home medication: Atorvastatin, clopidogrel, lisinopril, metoprolol 25 daily Patient seen and examined at bedside. Cardiology consulted given CT findings of substernal soft tissue density: new echo ordered, patient is having GOPAL due to sepsis and urinary obstruction, Pond catheter placed back, cefepime was changed to meropenem, azithromycin was added to cover atypicals and hyperkalemia protocol was done, new K at noon normal, patient is having febrile neutropenia, CT scan of abdomen showed right groin lymphadenopathy concerning of lymphoma, hematology is consulted: leukopenia work up and lymphadenopathy biopsy Yesterday 5: 30 pm, patient had an episode of AMS, weakness and hypotension, increased L leg weakness and L facial droop. Code stroke activated, neurology consult stated recrudescence of previous stroke due to hypotension, patient not candidate for thrombolysis, CT scan no acute stroke or hemorrhage, patient was placed on levophed and wean off at 8 pm, fluids IV 100 cc during the night, today x ray showed mild congestion IV fluids reduced to 60cc one dose of furosemide Objective vital signs Vital Sign Date Time Temp Pulse Resp B/P (MAP) Pulse Ox O2 Delivery O2 Flow Rate FiO2 12/06/24 10:00 15 99 Nasal Cannula* 2 28 12/06/24 10:00 74 12/06/24 10:00 118/68 (85) 12/06/24 09:33 209.7 Total Intake and Output 12/05/24 12/05/24 12/06/24 15:00 23:00 07:00 Intake Total 517.75 ml 1141 ml Output Total 650 ml 300 ml 350 ml Balance -650 ml 217.75 ml 791 ml medications Current Medications Medications Dose Ordered Sig/Shavon Route Start Time Stop Time Status Last Admin Dose Admin Acetaminophen 650 mg Q6HP PRN PO 12/04/24 03:30 12/05/24 10:59 650 MG Ondansetron HCl 4 mg Q4HP PRN IV 12/04/24 03:30 Diagnostic Test (Pha) 1 strip ACHS 12/04/24 07:00 12/06/24 06:32 1 STRIP Insulin Human Regular ACHS SC 12/04/24 07:00 12/04/24 20:05 3 UNITS Vancomycin HCl 0 ml @ 0 mls/hr UD IV 12/04/24 06:45 Pantoprazole Sodium 40 mg BID IV 12/04/24 06:45 12/06/24 08:17 40 MG Acetaminophen/ Hydrocodone Bitart 1 tab Q4HPRN PRN PO 12/04/24 14:30 12/06/24 04:20 1 TAB Morphine Sulfate 1 mg Q4HPRN PRN IV 12/04/24 14:30 Tamsulosin HCl 0.4 mg QPM PO 12/04/24 18:00 12/05/24 22:02 0.4 MG Atorvastatin Calcium 80 mg HS PO 12/04/24 22:00 12/05/24 22:02 80 MG Metoprolol Succinate 25 mg DAILY PO 12/05/24 10:00 12/06/24 09:51 25 MG Aspirin 81 mg DAILY PO 12/05/24 10:00 12/06/24 09:51 81 MG Clopidogrel Bisulfate 75 mg DAILY PO 12/05/24 10:00 12/06/24 09:51 75 MG Azithromycin 250 ml @ 125 mls/hr DAILY IV 12/05/24 15:00 12/06/24 08:17 125 MLS/HR Meropenem 50 ml @ 17 mls/hr Q12HR IV 12/05/24 22:00 12/05/24 22:28 17 MLS/HR Norepinephrine Bitartrate 250 ml @ 3.75 mls/hr Q24H IV 12/05/24 18:15 12/05/24 18:15 3.75 MLS/HR Sodium Chloride 1,000 ml @ 60 mls/hr [id number] IV 12/06/24 07:15 12/06/24 08:18 60 MLS/HR Examination General: Afebrile, palor, mucosae are moist Cardiovascular: sternal wound clean, sternum stable Tachycardic but regular S1 and S2. No murmurs, gallops or rubs. No JVD elevation. No pedal edema Respiratory: Normal B/L air entry on 2 L NC. Clear lung sounds on auscultation Abdomen: Soft, nontender, nondistended, normoactive bowel sounds, no rebound tenderness, no organomegaly, no masses. Neurological: Residual left lower extremity weakness.. Pupils are isocoric and reactive. Psych/Mental Status: A/Ox3 Patient has a stage II sacral decubitus ulcer, with erythema, not draining actively laboratory and microbiology Laboratory Tests 12/06/24 04:40 Test 12/06/24 04:40 Range/Units Serum Glucose 98 74-106 mg/dL Microbiology Date/Time Source Procedure Growth Status 12/04/24 18:17 Nose MRSA Screen - Final Complete 12/04/24 16:50 Voided Urine Urine Culture - Preliminary Resulted 12/03/24 21:49 Blood Blood Culture - Preliminary NO GROWTH AFTER 48 HOURS OF INCUBATION. Resulted Problem List/Assessment/Plan Problem List/Assessment/Plan Acute metabolic encephalopathy possible hypoxic To rule out stroke Septic shock secondary to neutropenic fever due to complicated UTI and pneumonia Acute cystitis and urinary retention Chronic indwelling Pond Community-acquired pneumonia, positive and negative Acute hypoxic respiratory failure secondary to above Febrile neutropenia 3.3 right groin lymphadenopathy rule out lymphoma CAD Status post CABG 10/2024 Hypertension Hyperlipidemia GOPAL, likely vasomotor superimposed on CKD stage 3B Hyperkalemia secondary to CKD Hyponatremia Hyperparathyroidism Anemia secondary to CKD? status post 1 RBC transfusion Transaminitis secondary to chronic liver disease Gallbladder polyps Stage II decubitus ulcer ? Infected History of CVA 11/06 Vitamin-D deficiency ICU status Levophed off fluid 60 cc/h furosemide once nephrology on board hematology on board neurology [facility] neurology Dr Cabral will be consulted for f/u Chest x-ray shows bibasilar consolidation Urine studies prelim no growth Pond catheter placed new 12/05/2024 IV vancomycin started 12/03 IV meropenem and azithromycin started 12/05 Blood culture prelim negative Today white blood cell counts 0.[address] scan: 3.3 right groin lymphadenopathy Hematology consult : biopsy of groin lymphadenopathy and luekopenia work up: viral panel and autoiimune Head CT scan yesterday: no acute stroke Pending brain MRI Chest CT shows Substernal soft tissue density and stranding without a large fluid collection. Fat stranding is nonspecific and should be correlated with timing of surgery. Alternatively this could reflect an infectious or inflammatory etiology. Small bilateral pleural effusions and passive atelectasis.Cardiomegaly. Cardiology consulted- recommended continuing dual antiplatelet at this time. echo normal EF no pericardial collection Hemoglobin 7.8 1 RBC transfused 12/04 Nephrology consulted-recommended Pond cath due to obstruction HyperK protocol: bicarbonate, Lasix and Lokelma (12/05/2024) Kidney Ultrasound shows Unremarkable sonographic study of the bilateral kidneys and urinary bladder. Creatinine is trending high Tod PTH 15 Liver ultrasound shows: Coarsened liver echotexture suggestive of chronic liver disease. Trace ascites. Partially visualized trace right pleural effusion. Gallbladder polyps measuring up to 0.4 cm. Wound care consulted, wound culture pending Aspirin and Plavix continue Continue atorvastatin 40 mg Plan discussed with patient, daughter and at the bedside in which all questions have been answered Goals of care discussed with the patient and his for 20 minutes, full code status 110 minutes critical care Case discussed with Dr. Andrew Plan discussed with: Patient, Spouse, Other (rn) My Orders My Orders Orders - KAMILLE VÁSQUEZ RESIDENT Procedure Category Date Status Time Respiratory Culture JOSE LUIS 12/05/24 Logged W/ Gs 11:55 * Hematology/Oncology CONS 12/05/24 Transmitted Consult 14:10 Azithromycin 500mg/ PHA 12/05/24 In Process 250ml (Zithromax 50 15:00 Meropenem 500mg Ivpb PHA 12/05/24 In Process (Merrem 500mg/Ns) 22:[address] 12/05/24 Resulted 17:51 [place] [facility] Consult CONS 12/05/24 Transmitted 17:55 Transfer Orders XFER 12/05/24 Transmitted 18:07 Norepinephrine 8 PHA 12/05/24 In Process Mg/250ml Kit 18:15 Chest Portable XY 12/05/24 Resulted 18:15 Abg W/ Co-Ox RT 12/05/24 Logged 18:15 *Consult CONS 12/05/24 Transmitted / 18:[address] 12/05/24 Resulted 19:47 Electrocardigram EKG 12/05/24 Logged 20:49 Electrocardigram EKG 12/05/24 Logged 21:49 Chest Xray 1 View XY 12/06/24 Resulted 04:00 Brain Head Wo Contrast MRI 12/06/24 Taken 07:01 Sodium Chloride 0.9% PHA 12/06/24 In Process 07:15 Dietary Evaluation Review Comments: 1. Encourage and monitor PO intake to meet at least 75% of his needs, 2. Low PTH, Low Ca, consider Ca supplement 3. Consider a nutrition supplement, Glucerna PO BID if PO remain at 50% or lower. 4. If renal function not improved, consider a renal specific 45g protein CCHO-60 (increased kcal) cardic diet Expected Outcomes/Goals: Improved appetite, Increased mobility, controlled DM and less uremic symptoms. wound will heal as serum glucose is controlled WNL. Critical Care Time (mins): 110 CC Plasma Assessment Blood Product Administration S: 1105 Addendum Addendum Addendum I was physically present for the vann portions of the service provided to patient by THE RESIDENT. I have reviewed the documentation, discussed the case with resident and agree with the resident's documentation except as noted. Also the patient's clinical case was discussed with the patient's nurse. This medical document was created using an electronic medical record system with computerized dictation system. Although this document has been carefully reviewed, there might still be some phonetic and typographical errors. These areas are purely typographical due to imperfections of the software programs, and do not reflect any compromise in the patient's medical care. Late signature. Date of Service: Dec 06, 2024 Billing Provider: TI ANDREW MD Common Visit Codes: 54623-LDFSCXON CARE 30-74 MIN (110 minutes), 89160-NBLITFOT CARE-EACH +30MIN Secondary Visit Codes: 38223-[id number] CARE PLAN 30 MINUTES (20 minutes) KAMILLE VÁSQUEZ RESIDENT Dec 06, 2024 10:28 TI ANDREW MD Dec 06, 2024 13:20
[2024-12-06 10:40] LABS: Thyroid Stimulating Hormone 0.7 uIU/mL (0.55-4.78)
--- NOTE | 2024-12-06 12:21 | DVH ---
MRI BRAIN WITHOUT CONTRAST CLINICAL HISTORY: rule out stroke TECHNIQUE: Multiplanar, multisequence MR images of the brain without intravenous contrast. Comparison: CT head 12/05/2024 FINDINGS: There is an approximately 1.9 x 1.0 cm area of restricted diffusion involving the anterior body/genu of the corpus callosum consistent with an acute to subacute infarct. There are also additional scatte red punctate foci of restricted diffusion in the bilateral frontal and right parietal lobe deep white matter which may represent smaller infarcts. There is no evidence of acute hemorrhage. There is no significant edema or mass effect. There is no hydrocephalus or extra-axial fluid collection. The visualized intracranial vasculature d emonstrates appropriate flow-voids. The craniocervical junction is within normal limits. The calvari um demonstrates normal marrow signal. There is mild mucosal thickening in the maxillary sinuses. Mast oid air cells appear clear. IMPRESSION: 1.There is a small area of restricted diffusion involving the anterior body / genu of the corpus roney losum consistent with an acute to subacute infarct. There is no evidence of acute hemorrhage. There is no mass effect. 2.There are additional scattered punctate foci of restricted diffusion in the bilateral frontal and right parietal lobe deep white matter which may represent tiny foci of acute to subacute infarcts. HS:Y
--- NOTE | 2024-12-06 13:20 | DVHPN2 ---
Progress Note Date Seen: Dec 06, 2024 Has the PT tested + for MRSA If YES, has PT been informed?: No Medical Necessity Reason Pt with a Central, PICC or Fol: No The following are medically ne: Pond Catheter Reason for pond catheter: Bladder Retention/Obstruc Subjective Patient reports: Feels worse, Other (AMS yesterday due to hypotension per neurology now in ICU) Review of Systems: NEURO:Abnormal Objective vital signs Vital Sign Date Time Temp Pulse Resp B/P (MAP) Pulse Ox O2 Delivery O2 Flow Rate FiO2 12/06/24 12:00 12 99 Nasal Cannula* 2 28 12/06/24 12:00 74 12/06/24 12:00 97.7 94/57 (69) 97.7 Total Intake and Output 12/05/24 12/05/24 12/06/24 15:00 23:00 07:00 Intake Total 517.75 ml 1141 ml Output Total 650 ml 300 ml 350 ml Balance -650 ml 217.75 ml 791 ml medications Current Medications Medications Dose Ordered Sig/Shavon Route Start Time Stop Time Status Last Admin Dose Admin Acetaminophen 650 mg Q6HP PRN PO 12/04/24 03:30 12/05/24 10:59 650 MG Ondansetron HCl 4 mg Q4HP PRN IV 12/04/24 03:30 Diagnostic Test (Pha) 1 strip ACHS 12/04/24 07:00 12/06/24 11:57 1 STRIP Insulin Human Regular ACHS SC 12/04/24 07:00 12/04/24 20:05 3 UNITS Vancomycin HCl 0 ml @ 0 mls/hr UD IV 12/04/24 06:45 Pantoprazole Sodium 40 mg BID IV 12/04/24 06:45 12/06/24 08:17 40 MG Acetaminophen/ Hydrocodone Bitart 1 tab Q4HPRN PRN PO 12/04/24 14:30 12/06/24 04:20 1 TAB Morphine Sulfate 1 mg Q4HPRN PRN IV 12/04/24 14:30 Tamsulosin HCl 0.4 mg QPM PO 12/04/24 18:00 12/05/24 22:02 0.4 MG Atorvastatin Calcium 80 mg HS PO 12/04/24 22:00 12/05/24 22:02 80 MG Metoprolol Succinate 25 mg DAILY PO 12/05/24 10:00 12/06/24 09:51 25 MG Aspirin 81 mg DAILY PO 12/05/24 10:00 12/06/24 09:51 81 MG Clopidogrel Bisulfate 75 mg DAILY PO 12/05/24 10:00 12/06/24 09:51 75 MG Azithromycin 250 ml @ 125 mls/hr DAILY IV 12/05/24 15:00 12/06/24 08:17 125 MLS/HR Meropenem 50 ml @ 17 mls/hr Q12HR IV 12/05/24 22:00 12/06/24 12:49 17 MLS/HR Norepinephrine Bitartrate 250 ml @ 3.75 mls/hr Q24H IV 12/05/24 18:15 12/05/24 18:15 3.75 MLS/HR Sodium Chloride 1,000 ml @ 60 mls/hr [id number] IV 12/06/24 07:15 12/06/24 08:18 60 MLS/HR Examination: GENERAL:Abnormal, CVS:Abnormal, ABDOMEN:Abnormal, NEURO:Abnormal laboratory and microbiology Laboratory Tests 12/06/24 04:40 Test 12/06/24 04:40 Range/Units Serum Glucose 98 74-106 mg/dL Microbiology Date/Time Source Procedure Growth Status 12/05/24 21:09 Nose MRSA Screen - Final Complete 12/05/24 12:11 Blood Blood Culture - Preliminary NO GROWTH AFTER 24 HOURS OF INCUBATION. 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 I recommend patient continue with Pond catheter and leg bag to outpatient. Recommend outpatient home health services for Pond catheter exchanges and patient should continue his outpatient appointment with Urology on December 12. IV fluid IV Lasix today to increase urinary output and improve potassium excretion Continue Flomax IV antibiotics Retroperitoneal lymphadenopathy noted to end decreased WBC workup as per primary medical team Plan discussed with: Patient My Orders My Orders Orders - PRABHU ERNANDEZ MD Procedure Category Date Status Time * [place] Electronic CONS 12/05/24 Transmitted Consult Dietary Evaluation Review Comments: 1. Encourage and monitor PO intake to meet at least 75% of his needs, 2. Low PTH, Low Ca, consider Ca supplement 3. Consider a nutrition supplement, Glucerna PO BID if PO remain at 50% or lower. 4. If renal function not improved, consider a renal specific 45g protein CCHO-60 (increased kcal) cardic diet Expected Outcomes/Goals: Improved appetite, Increased mobility, controlled DM and less uremic symptoms. wound will heal as serum glucose is controlled WNL. CC Plasma Assessment Blood Product Administration S: 1105 PRABHU ERNANDEZ MD Dec 06, 2024 13:19
--- NOTE | 2024-12-06 13:27 | DVHPN2 ---
Consult Progress Note Date Seen: Dec 06, 2024 Subjective Review of Systems: CVS:Normal, RESPIRATORY:Normal Other Systems: Denies any cardiac symptoms Objective vital signs Vital Sign Date Time Temp Pulse Resp B/P (MAP) Pulse Ox O2 Delivery O2 Flow Rate FiO2 12/06/24 12:00 12 99 Nasal Cannula* 2 28 12/06/24 12:00 74 12/06/24 12:00 97.7 94/57 (69) 97.7 Total Intake and Output 12/05/24 12/05/24 12/06/24 15:00 23:00 07:00 Intake Total 517.75 ml 1141 ml Output Total 650 ml 300 ml 350 ml Balance -650 ml 217.75 ml 791 ml medications Current Medications Medications Dose Ordered Sig/Shavon Route Start Time Stop Time Status Last Admin Dose Admin Acetaminophen 650 mg Q6HP PRN PO 12/04/24 03:30 12/05/24 10:59 650 MG Ondansetron HCl 4 mg Q4HP PRN IV 12/04/24 03:30 Diagnostic Test (Pha) 1 strip ACHS 12/04/24 07:00 12/06/24 11:57 1 STRIP Insulin Human Regular ACHS SC 12/04/24 07:00 12/04/24 20:05 3 UNITS Vancomycin HCl 0 ml @ 0 mls/hr UD IV 12/04/24 06:45 Pantoprazole Sodium 40 mg BID IV 12/04/24 06:45 12/06/24 08:17 40 MG Acetaminophen/ Hydrocodone Bitart 1 tab Q4HPRN PRN PO 12/04/24 14:30 12/06/24 04:20 1 TAB Morphine Sulfate 1 mg Q4HPRN PRN IV 12/04/24 14:30 Tamsulosin HCl 0.4 mg QPM PO 12/04/24 18:00 12/05/24 22:02 0.4 MG Atorvastatin Calcium 80 mg HS PO 12/04/24 22:00 12/05/24 22:02 80 MG Metoprolol Succinate 25 mg DAILY PO 12/05/24 10:00 12/06/24 09:51 25 MG Aspirin 81 mg DAILY PO 12/05/24 10:00 12/06/24 09:51 81 MG Clopidogrel Bisulfate 75 mg DAILY PO 12/05/24 10:00 12/06/24 09:51 75 MG Azithromycin 250 ml @ 125 mls/hr DAILY IV 12/05/24 15:00 12/06/24 08:17 125 MLS/HR Meropenem 50 ml @ 17 mls/hr Q12HR IV 12/05/24 22:00 12/06/24 12:49 17 MLS/HR Norepinephrine Bitartrate 250 ml @ 3.75 mls/hr Q24H IV 12/05/24 18:15 12/05/24 18:15 3.75 MLS/HR Sodium Chloride 1,000 ml @ 60 mls/hr [id number] IV 12/06/24 07:15 12/06/24 08:18 60 MLS/HR Examination: LUNGS:Normal, CVS:Normal (NSR. No evidence of tachyarrhythmias on court recording monitor), NEURO:Abnormal (Left facial droop) laboratory and microbiology Laboratory Tests 12/06/24 04:40 Test 12/06/24 04:40 Range/Units Serum Glucose 98 74-106 mg/dL Problem List/Assessment/Plan Problem List/Assessment/Plan Acute CVA rule out cardioembolic source Sepsis secondary to pneumonia and urinary tract infection Substernal soft tissue density likely secondary to recent CABG Severe coronary artery disease status post triple-vessel CABG (on Plavix and aspirin) Chronic HFpEF, NYHA class III Acute on chronic anemia, rule out GI bleed GOPAL on CKD Neutropenia Hypertension Hyperlipidemia Hyperkalemia Transaminitis Type 2 diabetes mellitus Obesity Plan/Recommendation (Dr. Sutton) Transthoracic echocardiogram revealed EF 50% with normal RV function and moderate aortic sclerosis with diminished excursion of the leaflets. A chest CT done on this admission reveals a substernal soft tissue density and stranding without large fluid collection. This may be secondary to recent cardiac surgery. Continue with dual antiplatelet therapy, lipid-lowering agent, and beta-ena as BP permits. The patient with an acute stroke is scheduled to undergo a transesophageal echocardiogram with bubble study to rule out cardioembolic source. All risks and benefits of the procedure were discussed with patient, , and daughter who agreed to proceed with intervention. All questions answered. In the meantime, continue neurology recommendations and infuse one unit of PRBCs for a target hemoglobin level >8.0 given recent CABG. Thank you for allowing us to care for this patient. This medical document was created using an electronic medical record system with voice recognition software and computerized dictation system. Although this document has been carefully reviewed, there might still be some phonetic and typographical errors. Occasional wrong-word or ``sound-alike substitutions may have occurred due to the inherent limitations of voice recognition software. These areas are purely typographical due to imperfections of the software programs and do not reflect any compromise in the patient's medical care. Please read the chart carefully and recognize, using context, where these substitutions have occurred. Plan discussed with: Patient, Spouse, Daughter, Other Dietary Evaluation Review Comments: 1. Encourage and monitor PO intake to meet at least 75% of his needs, 2. Low PTH, Low Ca, consider Ca supplement 3. Consider a nutrition supplement, Glucerna PO BID if PO remain at 50% or lower. 4. If renal function not improved, consider a renal specific 45g protein CCHO-60 (increased kcal) cardic diet Expected Outcomes/Goals: Improved appetite, Increased mobility, controlled DM and less uremic symptoms. wound will heal as serum glucose is controlled WNL. CC Plasma Assessment Blood Product Administration S: 1105 Date of Service: Dec 06, 2024 Billing Provider: YOU GARIBAY Cardiology Common Codes: [id number] HOSP CARE(High YOU GARIBAY Dec 06, 2024 13:27
--- NOTE | 2024-12-06 15:09 | DVH ---
PROCEDURE: ULTRASOUND GUIDED BIOPSY OF right inguinal lymph node HISTORY: LYMPHNODE BX DOCUMENTATION: Informed consent was obtained and a procedural time out was performed. TECHNIQUE: The skin over the right inguinal lymph node was sterilely prepped, draped, and infiltrate d with 1% lidocaine. Ultrasound images of the right inguinal lymph node biopsy were obtained with im ages archived in the PACS. Using real-time ultrasound guidance, a 17-gauge coaxial needle was directe d into right inguinal lymph. The 18-gauge Temno biopsy needle was inserted coaxially and 3 core biops y specimens were obtained and sent to pathology. The coaxial needle was then removed and hemostasis w as achieved with manual compression. Sterile dressings were applied. FINDINGS: Limited ultrasound imaging demonstrates enlarged right inguinal lymph node. Imaging confirm s the needle tip within right inguinal lymph node. Post-biopsy ultrasound imaging showed no apparent complication. IMPRESSION: SUCCESSFUL ULTRASOUND GUIDED BIOPSY OF right inguinal lymph node. PLEASE FOLLOW UP WITH PATHOLOGY FOR FINAL RESULTS. Procedure performed by dr. Olivares
--- NOTE | 2024-12-06 15:21 | DVHINCON2 ---
Date of service: Dec 06, [address] Reynolds Reason for Consultation new stroke History of Present Illness Mr. Narciso White is a 59 years old right-handed gentleman with a history of hypertension, diabetes, dyslipidemia, coronary artery disease, heart attack, recent CABG, he was taken to the [facility] on 12/03/2024 with a chief company of fever. But he was also developed acute stroke syndrome, at thist time, he was alert and oriented x4, he provided the following history He does not remember what happened to him and how he was transferred to the on 12/06/2024. According to his nurse, the patient was developed sleepiness, left facial drooping, left leg weakness, along with hypotension, with blood pressure 70/40s he was MRI brain scan showed multiple small strokes Recently has stroke with left-sided weakness in 10/2024 UDS, 12/04/2024: Negative Urinalysis, 12/04/2024: WBC: 1, urine leukocyte esterase: Negative WBC/HB/PLT/MCV, 12/06/2024: 0.6/7.8/147/84.5 PTT/INR/PTT, 12/05/2024: 12.4/1.19/37.2 Echocardiogram, 12/05/2024: Sinus rhythm. Left atrial enlargement with dilation of the sinuses of Valsalva. Mild RV enlar gement. Moderate aortic sclerosis with diminished excursion of the leaflets and calcification of what appears to be the right and non coronary cusps. From the short axis view there does not appear to be limitation in motion. Normal pulmonic valve. Left ventricular function appears preserved. EF of about 50% with normal RV function. The tricuspid is normal. Doppler reveals some mild to moderate TR. No pericardial effusion masses or vegetations MRI brain, 12/06/2024: 1. There is a small area of restricted diffusion involving the anterior body / genu of the corpus callosum consistent with an acute to subacute infarct. There is no evidence of acute hemorrhage. There is no mass effect. 2. There are additional scattered punctate foci of restricted diffusion in the bilateral frontal and right parietal lobe deep white matter which may represent tiny foci of acute to subacute infarcts Past Medical History Hypertension, diabetes, dyslipidemia, coronary artery disease, heart attack Past Surgical History Recent CABG Family History: Cardiovascular disease G8 MOTHER G8 FATHER Family History Heart disease Social History He was tobacco smoker, no history drug or alcohol abuse Allergies: Coded Allergies: NO KNOWN ALLERGIES (Unverified , 12/03/24) Home Meds Reported Medications Lisinopril (Lisinopril) 10 Mg Tab, 1 TAB PO DAILY 12/04/24 Benzonatate (Benzonatate) 100 Mg Cap, 1 CAP PO TID 12/04/24 Tramadol Hcl (Tramadol Hcl) 50 Mg Tab, 1 TAB PO Q8HPRN PRN 12/04/24 Atorvastatin Calcium (ATORVASTATIN CALCIUM) 80 Mg Tab, 80 HS 12/04/24 Metoprolol Succinate (Metoprolol Succinate Er) 25 Mg Tab, 1 TAB PO DAILY 12/04/24 Clopidogrel Bisulfate (CLOPIDOGREL) 75 Mg Tab, 1 TAB PO DAILY 12/04/24 Current Medications Current Medications Medications (Trade) Dose Ordered Sig/Shavon Route PRN Reason Start Time Stop Time Status Last Admin Ceftriaxone Sodium 50 ml @ 100 mls/hr DAILY@09 IV 12/06/24 09:00 12/05/24 15:07 DC Meropenem 50 ml @ 17 mls/hr Q12HR IV 12/05/24 22:00 12/06/24 12:49 Norepinephrine Bitartrate 250 ml @ 3.75 mls/hr Q24H IV 12/05/24 18:15 12/05/24 18:15 Sodium Chloride 1,000 ml @ 60 mls/hr [id number] IV 12/06/24 07:15 12/06/24 08:18 Review of Systems As above, the other systems are negative Vital Signs Vital Signs Date Time Temp Pulse Resp B/P (MAP) Pulse Ox O2 Delivery O2 Flow Rate FiO2 12/06/24 14:15 73 17 100/61 (74) 98 12/06/24 14:00 Nasal Cannula* 2 28 12/06/24 12:00 97.7 97.7 Physical Exam GENERAL EXAM: General: the patient is well developed and nourished. No acute distress. HEENT: Normocephalic, neck is supple, no carotid bruits. No mass. RESPIRATORY: Normal respiratory effort with symmetrical lung expansion. Lungs clear to auscultation. CARDIOVASCULAR: Regular rate and rhythm with no murmurs. S1, S2. ABDOMEN: Soft, nontender, normal bowel sound NEUROLOGICAL: MENTAL STATUS: Awake and alert. Oriented to person, place, time and general circumstances. Able to give personal history SPEECH, LANGUAGE, HIGHER CORTICAL FUNCTION: no aphasia or dysathria. CRANIAL NERVES: #2: Intact visual light to confrontation. The optic discs were sharp. #3,4,6: Pupils are equal, round and reactive. EOMs full and conjugate. No nystagmus. #5: Facial sensation intact in all three divisions bilaterally. Mandibular strength intact. #7: Facial muscles symmetrical and strength intact. #8: Hearing grossly normal to voice. #9,10: Uvula and soft palate rise in the midline. Swallow and voice are normal. #11: Trapezius and sternomastoid strength intact bilaterally. #12: Tongue midline. No fasciculations or atrophy. SENSATION: Sensation to touch and pinprick is normal. MOTOR: Normal tone in the upper and lower extremity. Normal muscle bulk. No fasciculations. No abnormal movements or posturing. Muscle strength of the major groups in the upper extremities is: Rt: 4/5, Lt: 5/5. He can move both legs, muscle power feels symmetric. REFLEXES: Deep tendon reflexes are symmetrical. No pathological reflexes. CEREBELLAR/COORDINATION: No ataxia in the upper extremities GAIT/STATION: deferred. Labs/Diagnostic Data Labs Test 12/06/24 11:52 12/06/24 10:37 12/06/24 04:40 12/05/24 21:10 Range/Units POC Glucose 122 H 70-106 mg/dl HIV (1&2) Antibody Negative Negative White Blood Count 0.6 #*L 4.4-10.8 10^3/uL Red Blood Count 2.72 L 4.5-5.90 10^6/uL Hemoglobin 7.8 L 13.5-17.5 g/dL Hematocrit 23.2 #L 41.0-53.0 % Mean Corpuscular Volume 85.5 80.0-100.0 fL Mean Corpuscular Hemoglobin 28.6 28.0-32.0 pg Mean Corpuscular Hemoglobin Concent 33.5 32.0-36.0 g/dL Red Cell Distribution Width 16.7 H 11.8-14.3 % Platelet Count 147 140-450 10^3/uL Mean Platelet Volume 8.4 6.9-10.8 fL Neutrophils (%) (Auto) 37.0-80.0 % Lymphocytes (%) (Auto) 10.0-50.0 % Monocytes (%) (Auto) 0.0-12.0 % Basophils (%) (Auto) 0.0-2.0 % Neutrophils # (Auto) 1.6-8.6 10 ^3/uL Lymphocytes # (Auto) 0.4-5.4 10 ^3/uL Monocytes # (Auto) 0-1.3 10 ^3/uL Differential Total Cells Counted 100.0 100 Neutrophils % (Manual) 13 L 37.0-80.0 Band Neutrophils % (Manual) 0 Lymphocytes % (Manual) 53 H 10.0-50.0 Monocytes % (Manual) 30 H 0-12 Eosinophils % (Manual) 4 0-7 Basophils % (Manual) 0 0.0-2.0 Metamyelocytes % (manual) 0 Myelocytes % (Manual) 0 Promyelocytes % (Manual) 0 Blast Cells % (Manual) 0 Reactive Lymphocytes 0 Platelet Estimate Adequate Large Platelets Few Anisocytosis (manual) Slight [place] Cells Few Sodium Level 132 L 136-145 mmol/L Potassium Level 4.7 3.5-5.1 mmol/L Chloride Level 103 98-107 mmol/L Carbon Dioxide Level 21 20-31 mmol/L Anion Gap 8 5-15 Blood Urea Nitrogen 82 *H 9-23 mg/dL Creatinine 3.64 H 0.700-1.30 mg/dL Glomerular Filtration Rate Calc 18 >90 mL/min BUN/Creatinine Ratio 22.5 H 10.0-20.0 Serum Glucose 98 74-106 mg/dL Lactic Acid Level 1.1 0.4-2.0 mmol/L Calcium Level 7.9 L 8.7-10.4 mg/dL Phosphorus Level 5.8 H 2.4-5.1 mg/dL Magnesium Level 2.6 1.6-2.6 mg/dL Total Bilirubin 1.5 H 0.2-1.0 mg/dL Aspartate Amino Transferase (AST) 68 H 13-40 U/L Alanine Aminotransferase (ALT) 37 7-40 U/L Alkaline Phosphatase 454 H 46-116 U/L Lactate Dehydrogenase 322 H 120-246 U/L Thyroid Stimulating Hormone (TSH) 0.70 0.55-4.78 uIU/mL Random Vancomycin Level 15.2 H 5-10 ug/mL Troponin I High Sensitivity 70 *H </=54 ng/L Test 3/26/25 18:37 12/05/24 18:30 12/05/24 12:11 12/05/24 05:13 Range/Units Schistocytes Few Prothrombin Time 12.4 H 9.3-11.8 sec Prothrombin Time INR 1.19 H 0.9-1.15 Activated Partial Thromboplast Time 37.2 H 24.5-34.5 SEC B-Type Natriuretic Peptide 739.33 0-100 pg/mL Blood Gas Specimen Type Arterial Blood Gas Sample Site Right radial Blood Gas Patient Temperature 37.0 Arterial Blood Date Drawn [id number] Arterial Blood pH 7.438 7.350-7.450 Arterial Blood Partial Pressure CO2 27.0 L 35.0-48.0 mmHg Arterial Blood Partial Pressure O2 78.8 L 83.0-108.0 mmHg Arterial Blood HCO3 17.8 L 21.0-28.0 mmol/L Arterial Blood Oxygen Saturation 94.5 94.0-98.0 % Arterial Blood Base Excess -5.4 L -2.0-3.0 mmol/L Arterial Blood Oxyhemoglobin 93.4 L 94.0-98.0 % Arterial Blood Carboxyhemoglobin 0.3 L 0.5-1.5 % Arterial Blood Methemoglobin 0.9 0.0-1.5 % Khadar Test Modified Blood Gas Total Hemoglobin 8.60 L 13.5-17.5 g/dL Blood Gas Liter Flow 6.00 Blood Gas Modality Nasal cannula FiO2 % 44.0 Erythrocyte Sedimentation Rate 88 H 0-20 mm/hr Eosinophils (%) (Auto) 0.6 0.0-7.0 % Eosinophils # (Auto) 0 0-0.8 10 ^3/uL Basophils # (Auto) 0 0-0.2 10 ^3/uL Nucleated Red Blood Cells 2.4 % Ovalocytes Few C-Reactive Protein High Sensitivity 15.65 H <1.0 mg/dL Test 12/04/24 16:50 12/04/24 07:00 12/04/24 05:30 12/04/24 04:50 Range/Units Urine Color Yellow Yellow Urine Clarity Turbid H Clear Urine pH 5.5 5.0-9.0 Urine Specific [place] 1.015 1.001-1.035 Urine Protein 1+ H Negative Urine Ketones Negative Negative Urine Blood Trace H Negative /uL Urine Nitrite Negative Negative Urine Bilirubin Negative Negative Urine Urobilinogen Normal Negative mg/dL Urine Leukocyte Esterase Negative Negative /uL Urine RBC <1 0 - 3 /hpf Urine Microscopic WBC 1 0-3 /HPF Urine Squamous Epithelial Cells Few <5 /hpf Urine Amorphous Crystals Few None Seen /hpf Urine Bacteria Few H None Seen /hpf Urine Creatinine 70.59 30.0-125.0 mg/dL Urine Protein/Creatinine Ratio 1.84 Urine Sodium 23 L 40-220 mmol/L Urine Glucose Normal Normal mg/dL Urine Total Protein 129.7 H 1-14 mg/dL Urine Opiates Screen Neg NEGATIVE Urine Fentanyl Screen Neg NEGATIVE Urine Barbiturates Screen Neg NEGATIVE Urine Phencyclidine Screen Neg NEGATIVE Urine Amphetamines Screen Neg NEGATIVE Urine Benzodiazepines Screen Neg NEGATIVE Urine Cocaine Screen Neg NEGATIVE Urine Cannabinoids Screen Neg NEGATIVE Reticulocyte Count (auto) 0.77 0.5-1.5 % D-Dimer, Quantitative 3.43 H 0.0-0.49 mg/L FEU Parathyroid Hormone (Intact) 15.7 L 18.4-80.1 pg/mL Influenza Type A Antigen Negative Negative Influenza Type B Antigen Negative Negative SARS-CoV-2 Antigen (Rapid) Negative NEGATIVE Haptoglobin 316 29-370 mg/dL Hemoglobin A1c 5.9 H <5.7 % A1C Vitamin B12 Level 1395 H 211-911 pg/mL Vitamin D 25-Hydroxy 11.9 L 30.0-100 ng/mL Microbiology Date/Time Source Procedure Growth Status 12/05/24 21:09 Nose MRSA Screen - Final Complete 12/05/24 12:11 Blood Blood Culture - Preliminary NO GROWTH AFTER 24 HOURS OF INCUBATION. Resulted 12/04/24 16:50 Voided Urine Urine Culture - Preliminary Resulted Assessment Recent acute stroke with left-sided weakness Acute stroke syndrome MR evident multiple strokes (11/08/2024) Pancytopenia Anemia Fever/sepsis Septic shock Coronary artery disease with recent CABG Plan/Recommendation Monitoring Supportive treatment LINDA Care Lipitor profile Carotid Doppler EMILY IV antibiotics Lipitor profile Aspirin 81 mg daily Lipitor 75 mg daily Lipitor 80 mg daily Physical therapist GI prophylaxis Up to chair More recommendation per clinical course Progress: Poor This medical document was created using an electronic medical record system with [employer] dictation system. Although this document has been carefully reviewed, there may still be some phonetic and typographical errors. These area s are purely typographical due to imperfections of the software programs, and do not reflect any compromise in the patient's medical care. Plan discussed with: NIKOLAS Mcguire MD Dec 06, 2024 15:21
[2024-12-06 21:28] LABS: Triglycerides 139 mg/dL (< 150)
[2024-12-06 21:29] LABS: LDL Cholesterol 20 mg/dL (< 100)
[2024-12-06 21:30] LABS: Cholesterol 79 mg/dL (< 200)
[2024-12-06 21:58] LABS: HDL Cholesterol 11 mg/dL (40-59)
--- NOTE | 2024-12-06 23:22 | DVHPN2 ---
Progress Note - Dictate Date Seen: Dec 06, 2024 Has the PT tested + for MRSA If YES, has PT been informed?: No Medical Necessity Reason Pt with a Central, PICC or Fol: No The following are medically ne: Pond Catheter Reason for pond catheter: Bladder Retention/Obstruc Subjective Patient seen and examined at bedside. Remains on supplemental oxygen Overnight events reviewed. vital signs Vital Sign Date Time Temp Pulse Resp B/P (MAP) Pulse Ox O2 Delivery O2 Flow Rate FiO2 12/06/24 22:00 16 97 Nasal Cannula* 2 28 12/06/24 22:00 79 12/06/24 20:25 98.6 103/67 98.6 Total Intake and Output 12/05/24 12/05/24 12/06/24 15:00 23:00 07:00 Intake Total 517.75 ml 1141 ml Output Total 650 ml 300 ml 350 ml Balance -650 ml 217.75 ml 791 ml medications Current Medications Medications Dose Ordered Sig/Shavon Route Start Time Stop Time Status Last Admin Dose Admin Acetaminophen 650 mg Q6HP PRN PO 12/04/24 03:30 12/05/24 10:59 650 MG Ondansetron HCl 4 mg Q4HP PRN IV 12/04/24 03:30 Diagnostic Test (Pha) 1 strip ACHS 12/04/24 07:00 12/06/24 22:04 1 STRIP Insulin Human Regular ACHS SC 12/04/24 07:00 12/04/24 20:05 3 UNITS Vancomycin HCl 0 ml @ 0 mls/hr UD IV 12/04/24 06:45 Pantoprazole Sodium 40 mg BID IV 12/04/24 06:45 12/06/24 22:03 40 MG Acetaminophen/ Hydrocodone Bitart 1 tab Q4HPRN PRN PO 12/04/24 14:30 12/06/24 04:20 1 TAB Morphine Sulfate 1 mg Q4HPRN PRN IV 12/04/24 14:30 Tamsulosin HCl 0.4 mg QPM PO 12/04/24 18:00 12/06/24 17:36 0.4 MG Atorvastatin Calcium 80 mg HS PO 12/04/24 22:00 12/06/24 22:04 80 MG Metoprolol Succinate 25 mg DAILY PO 12/05/24 10:00 12/06/24 09:51 25 MG Aspirin 81 mg DAILY PO 12/05/24 10:00 12/06/24 09:51 81 MG Clopidogrel Bisulfate 75 mg DAILY PO 12/05/24 10:00 12/06/24 09:51 75 MG Azithromycin 250 ml @ 125 mls/hr DAILY IV 12/05/24 15:00 12/06/24 08:17 125 MLS/HR Meropenem 50 ml @ 17 mls/hr Q12HR IV 12/05/24 22:00 12/06/24 22:04 17 MLS/HR Norepinephrine Bitartrate 250 ml @ 3.75 mls/hr Q24H IV 12/05/24 18:15 12/05/24 18:15 3.75 MLS/HR Sodium Chloride 1,000 ml @ 60 mls/hr [id number] IV 12/06/24 07:15 12/06/24 08:18 60 MLS/HR objective Gen.: Patient lying in bed in no apparent distress. On supplemental oxygen. Head: Normocephalic, atraumatic. Eyes: EOMI/PERRLA. Ears: Normal hearing. Normal anatomy. Neck/trachea: Trachea midline, supple. Nose: Normal external anatomy. Mouth: Moist mucous membranes. Chest: Decreased air entry bilaterally. No wheezing or rhonchi. Cardiovascular: Positive S1, positive S2. Regular rate and rhythm. Abdomen: Positive bowel sounds in all 4 quadrants. Soft, non-tender, non- distended. : Deferred. Rectal: Deferred. Skin: Warm, dry. Intact. Extremities: 2+ radial pulses bilaterally. No lower extremity edema. Neuro: Awake, alert, oriented x3. No gross motor or sensory deficits. Cranial nerves II through XII intact. Gait not assessed. laboratory and microbiology Laboratory Tests 12/06/24 04:40 Test 12/06/24 04:40 Range/Units Serum Glucose 98 74-106 mg/dL Assessment/Plan Impression: Acute hypoxic respiratory failure Dependence on supplemental oxygen Possible urinary tract infection CAD, s/p 3-vessel CABG. Septic shock Cerebrovascular accident Left pleural effusion Atelectasis Events: Remains on supplemental oxygen, 2 LPM NC Taper O2 as tolerated CT head - positive CVA - plan for higher level of care. Brain MRI shows e/o multiple strokes; small area of restricted diffusion involving the anterior body/genu of corpus callosum c/w acute to subacute infarct. No acute hemorrhage or mass effect. Scattered punctate foci of restricted diffusion in the bilateral frontal and right parietal lobe deep white matter, which may represent tiny foci of acute to subacute infarcts. CXR showing cardiomegaly w/ mild congestion. Off pressors since 2199 on 12/05/24. Monitor blood pressure Head of bed elevation Aspiration precautions Transfuse 1 unit PRBC Monitor hemoglobin Continue antibiotics Incentive spirometry IV fluids with NS at 60 ml/hr. Accu-Cheks, ISS. Labs and imaging reviewed. Rest of plan as noted below. Plan: Supplemental oxygen Titrate to keep O2 sats above 92%. Pressors if necessary for hemodynamic support Titrate to keep mean arterial pressure greater than 65 mmHg. Echocardiogram reviewed, notable for EF 50% Cardiology recs appreciated. Continue antibiotics Incentive spirometry Accu-Cheks, ISS. Monitor renal function. Monitor electrolytes. Supplement as necessary. Hyperkalemia - received hyperkalemia cocktail on 12/05 Monitor ins and outs. Pond for strict ins and outs Plan for HLOC due to CVA. DVT prophylaxis. Prognosis: Poor given patient's multiple co-morbidities. Condition: Critical Rest of plan per hospitalist and other consultants. A total of 35 minutes of critical care time was spent reviewing the patient record, examining the patient, making a diagnostic and therapeutic plan, discussing this plan with the medical personnel, following up on diagnostic studies and following the patient for clinical stability excluding any and all procedures. At least 50% of this time was spent in direct, [id number] contact. Thank you, Dr. Smith, for allowing me to participate in this patient's care. Further recommendations will depend on the patient's clinical course. Please do not hesitate to contact me if you have any questions or concerns. This medical document was created using an electronic medical record system with [employer] dictation system. Although these documentations are being carefully reviewed, there may still be some phonetic and typographical changes. The errors are purely typographical, due to imperfection on the software program, and do not reflect any compromise in the patient's medical care. Dietary Evaluation Review Comments: 1. Encourage and monitor PO intake to meet at least 75% of his needs, 2. Low PTH, Low Ca, consider Ca supplement 3. Consider a nutrition supplement, Glucerna PO BID if PO remain at 50% or lower. 4. If renal function not improved, consider a renal specific 45g protein CCHO-60 (increased kcal) cardic diet Expected Outcomes/Goals: Improved appetite, Increased mobility, controlled DM and less uremic symptoms. wound will heal as serum glucose is controlled WNL. Plan discussed with: Other (VIJAY Crawford) Critical Care Time(min): 35 CC Plasma Assessment Blood Product Administration S: [id number] JERAMY CAMARA MD Dec 06, 2024 23:22
[2024-12-07] VITALS (105 sets, daily range): BP systolic 90–137; BP diastolic 41–78; PULSE 64–86; RESP 9–25; TEMP 97.6–100.5; O2SAT 93–100
[2024-12-07 05:09] LABS: Basophils # (auto) 0 10 ^3/uL (0-0.2); Eosinophils # (auto) 0 10 ^3/uL (0-0.8); Hematocrit 24.8 % (41.0-53.0); Lymphocytes # (auto) 0.3 10 ^3/uL (0.4-5.4); Monocytes # (auto) 0.4 10 ^3/uL (0-1.3); Neutrophils # (auto) 0 10 ^3/uL (1.6-8.6); Red Blood Cells 2.95 10^6/uL (4.5-5.90)
[2024-12-07 05:13] LABS: Hemoglobin 8.2 g/dL (13.5-17.5); Lymphocytes % (auto) 43.9 % (10.0-50.0); Mean Corpuscular Hgb Conc. 33.3 g/dL (32.0-36.0); Mean Corpuscular Volume 84.2 fL (80.0-100.0); Monocytes % (auto) 51.8 % (0.0-12.0); Neutrophils % (auto) 0.3 % (37.0-80.0); Nucleated Red Blood Cells % 1.3 %; Platelet Count (auto) 141 10^3/uL (140-450); Red Cell Distribution Width 16.7 % (11.8-14.3)
[2024-12-07 05:26] LABS: Alanine Aminotransferase 38 U/L (7-40); Anion Gap 9 (5-15); BUN/Creatinine Ratio 23.5 (10.0-20.0); Chloride 103 mmol/L (98-107); Glucose 88 mg/dL (74-106); Magnesium 2.6 mg/dL (1.6-2.6); Potassium 4.7 mmol/L (3.5-5.1)
[2024-12-07 05:28] LABS: White Blood Cell 0.8 10^3/uL (4.4-10.8)
[2024-12-07 05:50] LABS: INR 1.19 (0.9-1.15); Partial Thromboplastin Time 44.4 SEC (24.5-34.5); Prothrombin Time 12.4 sec (9.3-11.8)
--- NOTE | 2024-12-07 05:59 | DVH ---
EXAM: XR Chest, 1 View CLINICAL INDICATION: dyspnea TECHNIQUE: Frontal view of the chest. COMPARISON: XY CHEST XRAY 1 VIEW on DOS: 12/06/24, XY CHEST PORTABLE on DOS: 12/05/24, XY CHEST XRAY 1 VIEW on DOS: 12/05/24, XY CHEST PORTABLE on DOS: 12/03/24 FINDINGS: LUNGS AND PLEURAL SPACES: Pulmonary congestion and edema. Pneumonia cannot be excluded. No pneumot horax. HEART: Unremarkable. No cardiomegaly. MEDIASTINUM: Unremarkable. Normal mediastinal contour. BONES/JOINTS: Unremarkable. No acute fracture. OTHER FINDINGS: . IMPRESSION: Pulmonary congestion and edema. Pneumonia cannot be excluded.
[2024-12-07 06:09] LABS: Albumin 2.3 g/dL (3.2-4.8); Alkaline Phosphatase 546 U/L (46-116); Aspartate Aminotransferase 83 U/L (13-40); Bilirubin, Total 1.7 mg/dL (0.2-1.0); Calcium 7.6 mg/dL (8.7-10.4); Carbon Dioxide 20 mmol/L (20-31); Sodium 132 mmol/L (136-145); Total Protein 5.5 g/dL (5.7-8.2)
[2024-12-07 06:10] LABS: Blood Urea Nitrogen 93 mg/dL (9-23)
[2024-12-07] MEDS: D5W 5% 1,000 ML IV SCH (06:53)
[2024-12-07 07:14] LABS: Anisocytosis Slight
[2024-12-07 07:15] LABS: Platelet Estimate Adequate
--- NOTE | 2024-12-07 10:06 | DVHPNRES ---
Progress Note Date Seen: Dec 07, 2024 Resident Creating Document: KAMILLE VÁSQUEZ RESIDENT Has the PT tested + for MRSA If YES, has PT been informed?: No Medical Necessity Reason Pt with a Central, PICC or Fol: No The following are medically ne: Pond Catheter Reason for pond catheter: Bladder Retention/Obstruc Subjective Review of Systems Mr. Vu is a 59-year-old mg past medical history of coronary artery disease status post CABG 10/2024, bilateral cerebral white matter October 2024, status post bed bound and chronic indwelling Pond, hypertension hyperlipidemia who was brought to the ER by the family with a chief complaint of heavy breathing, fever, chills and anuria for the past 3 days. Per daughter at bedside, patient never followed with urology or technical clerk after he was discharged from this facility on 11/07/24, usually makes 1600 cc of urine a day, which reduced to 300 cc in the past 3 days in his urine was dark. Patient also reported dysuria and abdominal discomfort. He also reports heavy breathing and mild nonproductive cough. Per daughter, patient has a wound in his back and is also draining white pus- like substance. On arrival, patient was febrile at 101.2 F, tachycardic, blood pressure 144/77 and requiring 4 L oxygen supplementation. White cell was 3.6, hemoglobin 8.8 and hematocrit 23. Patient had hyperkalemia, potassium was 6 which downtrended to 5.4. Creatinine 2.9 and BUN 77. Patient's Pond catheter was removed given a dose placed more than a month, the patient does not urinate on his own, bladder scan showed empty bladder, nephrology was consulted. Chest x-ray shows bibasilar consolidation. The patient was started on IV vancomycin and IV cefepime along with IV fluids. Has mildly elevated transaminitis. Past medical/surgical history: See above Home medication: Atorvastatin, clopidogrel, lisinopril, metoprolol 25 daily Patient seen and examined at bedside. Cardiology consulted given CT findings of substernal soft tissue density: new echo ordered, patient is having GOPAL due to sepsis and urinary obstruction, Pond catheter placed back, cefepime was changed to meropenem, azithromycin was added to cover atypicals and hyperkalemia protocol was done, new K at noon normal, patient is having febrile neutropenia, CT scan of abdomen showed right groin lymphadenopathy concerning of lymphoma, hematology is consulted: leukopenia work up and lymphadenopathy biopsy 12/06/24 at 5: 30 pm, patient had an episode of AMS, weakness and hypotension, increased L leg weakness and L facial droop. Code stroke activated, neurology consult stated recrudescence of previous stroke due to hypotension, patient not candidate for thrombolysis, CT scan no acute stroke or hemorrhage, patient was placed on Levophed and wean off at 8 pm, fluids IV 100 cc during the night, today x ray showed mild congestion IV fluids reduced to 60cc and furosemide IV was started. New MRI showed multiple small stroke in different places: probably cardioembolic etiology. Neurology Dr Cabral, stated no need of CTA or thrombectomy, also transfer to [facility] was planning but according to the center he had his CABG, [facility]. Also, lymphadenopathy biopsy was done. 1RBC was transfused per cardiology 12/07/24: EMILY was ordered and will be done today. Worsening renal function; nephrology will discuss possible hemodialysis with the patient and his family Objective vital signs Vital Sign Date Time Temp Pulse Resp B/P (MAP) Pulse Ox O2 Delivery O2 Flow Rate FiO2 12/07/24 08:42 71 101/55 12/07/24 08:00 16 98 Nasal Cannula* 2 28 12/07/24 04:00 98.8 98.8 Total Intake and Output 12/06/24 12/06/24 12/07/24 15:00 23:00 07:00 Intake Total 780 ml 996 ml 459 ml Output Total 350 ml 500 ml Balance 780 ml 646 ml -41 ml medications Current Medications Medications Dose Ordered Sig/Shavon Route Start Time Stop Time Status Last Admin Dose Admin Acetaminophen 650 mg Q6HP PRN PO 12/04/24 03:30 12/07/24 01:25 650 MG Ondansetron HCl 4 mg Q4HP PRN IV 12/04/24 03:30 Diagnostic Test (Pha) 1 strip ACHS 12/04/24 07:00 12/07/24 06:43 1 STRIP Insulin Human Regular ACHS SC 12/04/24 07:00 12/04/24 20:05 3 UNITS Vancomycin HCl 0 ml @ 0 mls/hr UD IV 12/04/24 06:45 Pantoprazole Sodium 40 mg BID IV 12/04/24 06:45 12/07/24 08:42 40 MG Acetaminophen/ Hydrocodone Bitart 1 tab Q4HPRN PRN PO 12/04/24 14:30 12/06/24 04:20 1 TAB Morphine Sulfate 1 mg Q4HPRN PRN IV 12/04/24 14:30 Tamsulosin HCl 0.4 mg QPM PO 12/04/24 18:00 12/06/24 17:36 0.4 MG Atorvastatin Calcium 80 mg HS PO 12/04/24 22:00 12/06/24 22:04 80 MG Metoprolol Succinate 25 mg DAILY PO 12/05/24 10:00 12/07/24 08:42 25 MG Aspirin 81 mg DAILY PO 12/05/24 10:00 12/07/24 08:42 81 MG Clopidogrel Bisulfate 75 mg DAILY PO 12/05/24 10:00 12/07/24 08:43 75 MG Azithromycin 250 ml @ 125 mls/hr DAILY IV 12/05/24 15:00 12/07/24 08:42 125 MLS/HR Meropenem 50 ml @ 17 mls/hr Q12HR IV 12/05/24 22:00 12/06/24 22:04 17 MLS/HR Norepinephrine Bitartrate 250 ml @ 3.75 mls/hr Q24H IV 12/05/24 18:15 12/05/24 18:15 3.75 MLS/HR Dextrose 1,000 ml @ 50 mls/hr Q20H IV 12/07/24 06:45 12/07/24 06:53 50 MLS/HR Examination General: Afebrile, palor, mucosae are moist Cardiovascular: sternal wound clean, sternum stable Tachycardic but regular S1 and S2. No murmurs, gallops or rubs. No JVD elevation. No pedal edema Respiratory: Normal B/L air entry on 2 L NC. Clear lung sounds on auscultation Abdomen: Soft, nontender, nondistended, normoactive bowel sounds, no rebound tenderness, no organomegaly, no masses. Neurological: Residual left lower extremity weakness.. Pupils are isocoric and reactive. Psych/Mental Status: A/Ox3 Patient has a stage II sacral decubitus ulcer, with erythema, not draining actively laboratory and microbiology Laboratory Tests 12/07/24 04:47 Test 12/07/24 04:47 Range/Units Serum Glucose 88 74-106 mg/dL Microbiology Date/Time Source Procedure Growth Status 12/05/24 21:09 Nose MRSA Screen - Final Complete 12/05/24 12:11 Blood Blood Culture - Preliminary NO GROWTH AFTER 24 HOURS OF INCUBATION. 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 There is no evidence of acute hemorrhage. There is no mass effect. There are additional scattered punctate foci of restricted diffusion in the bilateral frontal and right parietal lobe deep white matter which may represent tiny foci of acute to subacute infarcts. Bran MRI oct 2024: There prominent diffusion restriction also seen within the genu and anterior body of the corpus callosum. There is an apparent punctate additional focus of diffusion restriction in the medulla Neurology on board Aspirin and Plavix continue Continue atorvastatin 40 mg Pending EMILY today Carotid duplex: No hemodynamically significant stenosis within the carotid arteries. Cardiology #Severe coronary artery disease status post triple-vessel CABG #Substernal soft tissue density likely secondary to recent CABG #Possible acute on Chronic HFpEF, NYHA class III Cardiology on board 12/05/24 ECHO: Left atrial enlargement with dilation of the sinuses of Valsalva. Mild RV enlargement. Moderate aortic sclerosis with diminished excursion of the leaflets and calcification of what appears to be the right and non coronary cusps. Left ventricular function appears preserved. EF of about 50% with normal RV function. The tricuspid is normal. Doppler reveals some mild to moderate TR. No pericardial effusion masses or vegetations. 12/04/24: Substernal soft tissue density and stranding without a large fluid collection. Fat stranding is nonspecific and should be correlated with timing of surgery. Alternatively this could reflect an infectious or inflammatory etiology. Small bilateral pleural effusions and passive atelectasis. Cardiomegaly. 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 Pneumonia cannot be excluded GI #Transaminitis secondary to chronic liver disease #Gallbladder polyps Coarsened liver echotexture suggestive of chronic liver disease. Trace ascites. Partially visualized trace right pleural effusion. Gallbladder polyps measuring up to 0.4 cm FOB negative NPO until EMILY D5W: 50cc/h Renal #GOPAL, likely vasomotor superimposed on CKD stage 3B #Dialysis urgency #Severe fluid overload #Hyperkalemia secondary to CKD #Hyperparathyroidism #Mixed base disorder: respiratory alkalosis and metabolic acidosis #Chronic indwelling Pond Urine culture came negative Inspector [employer] on board Discussing the case with Dr Gonzales, patient will need dialysis, non tunneled catheter will be placed Furosemide 20 mg IV daily Hematology #Pancytopenia: rule out neoplasm #Febrile neutropenia #Retroperitoneal lymphadenopathy #Rule out lymphoma #Normochromic and normocytic Anemia multifactorial: rule out neoplasm, CKD Lymph node biopsy done Check hepatitis panel NOLBERTO double-stranded DNA CMV Christine-Deshpande virus, protein electrophoresis 2 units of packed RBCs given FOB negative [place] on board Infectious #Febrile neutropenia #Septic shock due to possible pneumonia #Possible septic emboli EMILY Azithromycin + Vanco+ Meropenem Endocrinology #Hypoglycemia #Prediabetes D5W 50cc/h Stop insulin Goals of care rediscussed with the patient and his for 20 minutes; full code 66 minutes of critical care time Case discussed with Dr. Andrew Plan discussed with: Patient, Other (Nurse) My Orders My Orders Orders - KAMILLE VÁSQUEZ RESIDENT Procedure Category Date Status Time * Neurology Consult CONS 12/06/24 Transmitted 11:06 Us Guidance For US 12/06/24 Resulted Needle Placeme Chest Xray 1 View XY 12/07/24 Resulted 04:00 D5w 5% (Dextrose 5%) PHA 12/07/24 In Process 06:45 Dietary Evaluation Review Comments: 1. Encourage and monitor PO intake to meet at least 75% of his needs, 2. Low PTH, Low Ca, consider Ca supplement 3. Consider a nutrition supplement, Glucerna PO BID if PO remain at 50% or lower. 4. If renal function not improved, consider a renal specific 45g protein CCHO-60 (increased kcal) cardic diet Expected Outcomes/Goals: Improved appetite, Increased mobility, controlled DM and less uremic symptoms. wound will heal as serum glucose is controlled WNL. Critical Care Time (mins): 66 CC Plasma Assessment Blood Product Administration S: 1105 Addendum Addendum Addendum I was physically present for the vann portions of the service provided to patient by THE RESIDENT. I have reviewed the documentation, discussed the case with resident and agree with the resident's documentation except as noted. Also the patient's clinical case was discussed with the patient's nurse. This medical document was created using an electronic medical record system with computerized dictation system. Although this document has been carefully reviewed, there might still be some phonetic and typographical errors. These areas are purely typographical due to imperfections of the software programs, and do not reflect any compromise in the patient's medical care. Late signature. Date of Service: Dec 07, 2024 Billing Provider: TI ANDREW MD Common Visit Codes: 69383-NORIWCUD CARE 30-74 MIN (66 minutes) Secondary Visit Codes: 44442-YXOQVFCE CARE PLAN 30 MINUTES (20 minutes) KAMILLE VÁSQUEZ Dec 07, 2024 10:06 TI ANDREW MD Dec 08, 2024 06:57
--- NOTE | 2024-12-07 10:58 | DVH ---
CAROTID ARTERIAL DOPPLER CLINICAL HISTORY: cva TECHNIQUE: Doppler study of bilateral carotid/vertebral arteries were performed. Comparison: None FINDINGS: The bilateral common carotid, external and internal carotid arteries appear patent without hemodynami tera significant stenosis. There is no significant flow limiting plaque formation identified.The sp ectral wave forms and peak systolic velocities are within normal limits. Antegrade flow is present within the vertebral arteries with appropriate velocities and waveforms. Right ICA/CCA PSV ratio = 1.3. Left ICA/CCA PSV ratio = 1.0 . IMPRESSION: 1. No hemodynamically significant stenosis within the carotid arteries. HS:Y
[2024-12-07] MEDS: VANCOMYCIN 500mg/100mL 100 ML IV ONE (11:18)
[2024-12-07] MEDS: FUROSEMIDE 20 MG/2 ML VIAL IV SCH (11:18)
--- NOTE | 2024-12-07 11:22 | ECG ---
[facility] Test Date: 2024-12-05 Test Time: 17:59:08 Pat Name: HEAVEN ALANIS Department: Respiratoy Room: 0262 A Gender: M Dietary Aide: BARRY : 1965 Requested By: KAMILLE ARCHULETA Order Number: [id number] Reading MD: Brad Sutton Measurements Intervals [place] Rate: 70 P: 44 NE: 184 QRS: 75 QRSD: 88 T: 71 QT: 394 QTc: 426 Interpretive Statements Sinus rhythm Low voltage, extremity leads Baseline wander in lead(s) V5 Electronically Signed On 12-07-2024 11:54:46 PDT by Brad Sutton Please click the below link to view image of tracing.
--- NOTE | 2024-12-07 11:23 | ECG ---
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
--- NOTE | 2024-12-07 11:56 | DVHPN2 ---
Progress Note - Dictate Date Seen: Dec 07, 2024 Has the PT tested + for MRSA If YES, has PT been informed?: No Medical Necessity Reason Pt with a Central, PICC or Fol: No The following are medically ne: Pond Catheter Reason for pond catheter: Bladder Retention/Obstruc Subjective Mr. Narciso White is a 59 years old right-handed gentleman with a history of hypertension, diabetes, dyslipidemia, coronary artery disease, heart attack, recent CABG, he was taken to the [facility] on 12/03/2024 with a chief company of fever. But he was also developed acute stroke syndrome I have seen and examined the patient, discussed with his nurse, he was doing better today, talk smoke, awake, oriented x4, On 12/07/2024, he was relates, about three weeks after his CABG, in 10/2024, when he was sitting in his wheelchair, he had intense dizziness/lightheadedness, diffuse hot feeling, increased sweating, she was pain, (but no nausea, no vomiting) and he thinks he passed out for a few seconds of time, there was no associated focal weakness numbness, he did not seek medical attention afterwards, think this was a stroke. He denies other acute stroke syndromes He has tingling, numbness and mild pain in the feet since 2020, but he was able to walk fine but coincidentally after CABG, he was not able to walk because weakness in the legs UDS, 12/04/2024: Negative Urinalysis, 12/04/2024: WBC: 1, urine leukocyte esterase: Negative WBC/HB/PLT/MCV, 12/06/2024: 0.6/7.8/147/84.5 12/07/2024: 0.8/8.2/141/it was 102 PTT/INR/PTT, 12/05/2024: 12.4/1.19/37.2 BUN/CR, 12/06/2024: 82/3.64 HGB A1c, 12/04/2024: 5.9 TBI/AST/ALT/AP, 12/06/2024: 1.5/68/37/454 TG/HDL/LDL/HDL, 12/06/2024: 138/70 06/01/ SIFE, 12/06/2024: Carotid Doppler, 12/07/2024: No hemodynamically significant stenosis within the carotid arteries Echocardiogram, 12/05/2024: Sinus rhythm. Left atrial enlargement with dilation of the sinuses of Valsalva. Mild RV enlargement. Moderate aortic sclerosis with diminished excursion of the leaflets and calcification of what appears to be the right and non coronary cusps. From the short axis view there does not appear to be limitation in motion. Normal pulmonic valve. Left ventricular function appears preserved. EF of about 50% with normal RV function. The tricuspid is normal. Doppler reveals some mild to moderate TR. No pericardial effusion masses or vegetations MRI brain, 12/06/2024: 1. There is a small area of restricted diffusion involving the anterior body / genu of the corpus callosum consistent with an acute to subacute infarct. There is no evidence of acute hemorrhage. There is no mass effect. 2. There are additional scattered punctate foci of restricted diffusion in the bilateral frontal and right parietal lobe deep white matter which may represent tiny foci of acute to subacute infarcts This medical document was created using an electronic medical record system with [employer] dictation system. Although this document has been carefully reviewed, there may still be some phonetic and typographical errors. These areas are purely typographical due to imperfections of the software programs, and do not reflect any compromise in the patient's medical care. vital signs Vital Sign Date Time Temp Pulse Resp B/P (MAP) Pulse Ox O2 Delivery O2 Flow Rate FiO2 12/07/24 11:36 15 99 Nasal Cannula* 2 28 12/07/24 11:30 74 119/74 (89) 12/07/24 08:00 97.6 97.6 Total Intake and Output 12/06/24 12/06/24 12/07/24 15:00 23:00 07:00 Intake Total 780 ml 996 ml 459 ml Output Total 350 ml 500 ml Balance 780 ml 646 ml -41 ml medications Current Medications Medications Dose Ordered Sig/Shavon Route Start Time Stop Time Status Last Admin Dose Admin Acetaminophen 650 mg Q6HP PRN PO 12/04/24 03:30 12/07/24 01:25 650 MG Ondansetron HCl 4 mg Q4HP PRN IV 12/04/24 03:30 Diagnostic Test (Pha) 1 strip ACHS 12/04/24 07:00 12/07/24 11:18 1 STRIP Insulin Human Regular ACHS SC 12/04/24 07:00 12/04/24 20:05 3 UNITS Vancomycin HCl 0 ml @ 0 mls/hr UD IV 12/04/24 06:45 Pantoprazole Sodium 40 mg BID IV 12/04/24 06:45 12/07/24 08:42 40 MG Acetaminophen/ Hydrocodone Bitart 1 tab Q4HPRN PRN PO 12/04/24 14:30 12/06/24 04:20 1 TAB Morphine Sulfate 1 mg Q4HPRN PRN IV 12/04/24 14:30 Tamsulosin HCl 0.4 mg QPM PO 12/04/24 18:00 12/06/24 17:36 0.4 MG Atorvastatin Calcium 80 mg HS PO 12/04/24 22:00 12/06/24 22:04 80 MG Metoprolol Succinate 25 mg DAILY PO 12/05/24 10:00 12/07/24 08:42 25 MG Aspirin 81 mg DAILY PO 12/05/24 10:00 12/07/24 08:42 81 MG Clopidogrel Bisulfate 75 mg DAILY PO 12/05/24 10:00 12/07/24 08:43 75 MG Azithromycin 250 ml @ 125 mls/hr DAILY IV 12/05/24 15:00 12/07/24 08:42 125 MLS/HR Meropenem 50 ml @ 17 mls/hr Q12HR IV 12/05/24 22:00 12/07/24 09:57 17 MLS/HR Norepinephrine Bitartrate 250 ml @ 3.75 mls/hr Q24H IV 12/05/24 18:15 12/05/24 18:15 3.75 MLS/HR Dextrose 1,000 ml @ 50 mls/hr Q20H IV 12/07/24 06:45 12/07/24 06:53 50 MLS/HR Furosemide 20 mg DAILY IV 12/07/24 10:45 12/07/24 11:18 20 MG objective General: the patient is well developed and nourished. No acute distress. MENTAL STATUS: Awake and alert. Oriented to person, place, time and general circumstances. Able to give personal history SPEECH, LANGUAGE, HIGHER CORTICAL FUNCTION: no aphasia or dysathria. CRANIAL NERVES: Pupils are equal, round and reactive. EOMs full and conjugate. No nystagmus. Facial sensation intact in all three divisions bilaterally. Mandibular strength intact. Facial muscles symmetrical and strength intact. SENSATION: Sensation to touch and pinprick is diminished distally in the lower extremities, but no whyr-do-owlr differences MOTOR: Normal tone in the upper and lower extremity. Normal muscle bulk. No fasciculations. No abnormal movements or posturing. Muscle strength of the major groups in the upper extremities is: close to 5/5. He can move both legs, muscle power feels 3-4/5. REFLEXES: Deep tendon reflexes are symmetrical. No pathological reflexes. CEREBELLAR/COORDINATION: No ataxia in the upper extremities GAIT/STATION: deferred. laboratory and microbiology Laboratory Tests 12/07/24 04:47 Test 12/07/24 04:47 Range/Units Serum Glucose 88 74-106 mg/dL Problem List Recent acute stroke with left-sided weakness Acute stroke syndrome MRI evident multiple strokes (11/08/2024) Pancytopenia Anemia Fever/sepsis Septic shock Coronary artery disease with recent CABG Diabetic polyneuropathy Assessment/Plan Monitoring Supportive treatment Follow-up lipid profile LINDA Care EMILY IV antibiotics Lipitor profile Aspirin 81 mg daily Lipitor 75 mg daily D/C Lipitor 80 mg daily Physical therapist GI prophylaxis Up to chair He was aware of neuropathy related foot care More recommendation per clinical course This medical document was created using an electronic medical record system with [employer] dictation system. Although this document has been carefully reviewed, there may still be some phonetic and typographical errors. These areas are purely typographical due to imperfections of the software programs, and do not reflect any compromise in the patient's medical care. Prognosis poor Dietary Evaluation Review Comments: 1) Ergocalciferol 50,000IU weekly 2) Jose L 1 pk daily, MVI w/ mineral 1 tab, Vit C 500mg BID, Zinc sulfate 220mg daily x 10 days 3) Advance to [id number] + renal special 80gm protein diet 4) Continue current plan of care Expected Outcomes/Goals: Advance diet to meet at least 75% estimated needs FU 2-3 days Plan discussed with: Patient, Other CC Plasma Assessment Blood Product Administration S: [id number] NIKOLAS PRATT MD Dec 07, 2024 11:56
[2024-12-07 12:06] LABS: CMV IgG Antibody >10.00 U/mL (0.00-0.59); CMV IgM Antibody <30.0 AU/mL (0.0-29.9); EBV Ab VCA IgG Antibody >600.0 U/mL (0.0-17.9)
[2024-12-07 13:07] LABS: Anti-Nuclear Antibody Direct Negative (Negative)
[2024-12-07] MEDS: LIDOCAINE VISCOUS 2% 15ML UD PO ONE (13:07)
[2024-12-07] MEDS: MIDAZOLAM HCL 2MG/2ML 2ml VIAL (1mg/ml) IV ONE (13:08)
[2024-12-07] MEDS: fentaNYL CITRATE 100 MCG/2 ML VL IV ONE (13:12)
--- NOTE | 2024-12-07 13:50 | DVHOP2 ---
Operative Report Procedure performed: Transesophageal echocardiogram. Indication is CVA. No complications. Conscious sedation given as well as viscous lidocaine to gargle. Patient monitored by me and observed throughout the procedure with conscious sedation administered. Preoperative diagnosis CVA. Postoperative diagnosis CVA. Procedure: Prior full informed consent obtained the patient was placed in the left lateral in semi-Diallo position. A transesophageal probe was passed subsequent of viscous lidocaine and conscious sedation given. Standard views were obtained. Conclusions 1. Technically good study. Patient in a sinus rhythm. Normal chamber dimensions. Valves appear to be structurally normal. Normal aortic mitral tricuspid and pulmonic valves Left ventricular function was preserved at 60% with normal RV function. Doppler reveals mild tricuspid insufficiency. Mild mitral insufficiency. No pericardial effusion masses or vegetations noted. The atrial appendage is normal. There are no thrombi present. Bubble study did not reveal crossover into the left side. Abnormal shunting otherwise present. SOO VALENZUELA Sr., MD Dec 07, 2024 13:50
--- NOTE | 2024-12-07 13:53 | DVHPN2 ---
Date of Service: Dec 07, 2024 Billing Provider: SOO VALENZUELA Sr., MD Cardiology Common Codes: PROCEDURE ONLY (Transesophageal echocardiogram.) Cardiology Procedure Codes: 00834-JGR W/IMG DOC INCL PROB ACQ SOO VALENZUELA Sr., MD Dec 07, 2024 13:53
[2024-12-07 14:28] LABS: Triglycerides 141 mg/dL (< 150)
[2024-12-07 14:29] LABS: LDL Cholesterol 20 mg/dL (< 100)
[2024-12-07 14:30] LABS: Cholesterol 77 mg/dL (< 200); HDL Cholesterol 9 mg/dL (40-59)
--- NOTE | 2024-12-07 16:47 | DVHPN2 ---
Progress Note Date Seen: Dec 07, 2024 Has the PT tested + for MRSA If YES, has PT been informed?: No Medical Necessity Reason Pt with a Central, PICC or Fol: No The following are medically ne: Pond Catheter Reason for pond catheter: Bladder Retention/Obstruc Subjective Patient reports: Feels worse Review of Systems: RESPIRATORY:Abnormal, NEURO:Abnormal Objective vital signs Vital Sign Date Time Temp Pulse Resp B/P (MAP) Pulse Ox O2 Delivery O2 Flow Rate FiO2 12/07/24 16:00 17 98 Nasal Cannula* 2 12/07/24 16:00 97.6 73 112/66 (81) 97.6 Total Intake and Output 12/06/24 12/06/24 12/07/24 15:00 23:00 07:00 Intake Total 780 ml 996 ml 459 ml Output Total 350 ml 500 ml Balance 780 ml 646 ml -41 ml medications Current Medications Medications Dose Ordered Sig/Shavon Route Start Time Stop Time Status Last Admin Dose Admin Acetaminophen 650 mg Q6HP PRN PO 12/04/24 03:30 12/07/24 01:25 650 MG Ondansetron HCl 4 mg Q4HP PRN IV 12/04/24 03:30 Diagnostic Test (Pha) 1 strip ACHS 12/04/24 07:00 12/07/24 11:18 1 STRIP Vancomycin HCl 0 ml @ 0 mls/hr UD IV 12/04/24 06:45 Pantoprazole Sodium 40 mg BID IV 12/04/24 06:45 12/07/24 08:42 40 MG Acetaminophen/ Hydrocodone Bitart 1 tab Q4HPRN PRN PO 12/04/24 14:30 12/06/24 04:20 1 TAB Morphine Sulfate 1 mg Q4HPRN PRN IV 12/04/24 14:30 Tamsulosin HCl 0.4 mg QPM PO 12/04/24 18:00 12/06/24 17:36 0.4 MG Metoprolol Succinate 25 mg DAILY PO 12/05/24 10:00 12/07/24 08:42 25 MG Aspirin 81 mg DAILY PO 12/05/24 10:00 12/07/24 08:42 81 MG Clopidogrel Bisulfate 75 mg DAILY PO 12/05/24 10:00 12/07/24 08:43 75 MG Azithromycin 250 ml @ 125 mls/hr DAILY IV 12/05/24 15:00 12/07/24 08:42 125 MLS/HR Meropenem 50 ml @ 17 mls/hr Q12HR IV 12/05/24 22:00 12/07/24 09:57 17 MLS/HR Norepinephrine Bitartrate 250 ml @ 3.75 mls/hr Q24H IV 12/05/24 18:15 12/05/24 18:15 3.75 MLS/HR Examination: GENERAL:Abnormal, LUNGS:Abnormal, CVS:Abnormal, NEURO:Abnormal laboratory and microbiology Laboratory Tests 12/07/24 04:47 Test 12/07/24 04:47 Range/Units Serum Glucose 88 74-106 mg/dL Microbiology Date/Time Source Procedure Growth Status 12/05/24 21:09 Nose MRSA Screen - Final Complete 12/05/24 12:11 Blood Blood Culture - Preliminary NO GROWTH AFTER 48 HOURS OF INCUBATION. 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 Acute TIA (12/05/24) due to hypotension s/p EMILY today IV diuretic today declining renal function and worsening congestion, explained likely need for HD and consent verbally obtained Continue Flomax IV antibiotics Retroperitoneal lymphadenopathy noted to end decreased WBC workup as per primary medical team Plan discussed with: Patient My Orders My Orders Orders - PRABHU ERNANDEZ MD Procedure Category Date Status Time * 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
[2024-12-07] MEDS: BUMETANIDE 2.5mg/10ml (0.25 mg/ml) INJ IV ONE (17:11)
--- NOTE | 2024-12-07 23:37 | DVHPN2 ---
Progress Note - Dictate Date Seen: Dec 07, 2024 Has the PT tested + for MRSA If YES, has PT been informed?: No Medical Necessity Reason Pt with a Central, PICC or Fol: Yes The following are medically ne: Pond Catheter Reason for pond catheter: Bladder Retention/Obstruc, Strict I&O Subjective Patient seen and examined at bedside. Remains on supplemental oxygen Overnight events reviewed. vital signs Vital Sign Date Time Temp Pulse Resp B/P (MAP) Pulse Ox O2 Delivery O2 Flow Rate FiO2 12/07/24 23:06 100.5 12/07/24 20:15 77 20 98 12/07/24 20:00 Nasal Cannula* 2 28 Total Intake and Output 12/06/24 12/06/24 12/07/24 15:00 23:00 07:00 Intake Total 780 ml 996 ml 459 ml Output Total 350 ml 500 ml Balance 780 ml 646 ml -41 ml medications Current Medications Medications Dose Ordered Sig/Shavon Route Start Time Stop Time Status Last Admin Dose Admin Acetaminophen 650 mg Q6HP PRN PO 12/04/24 03:30 12/07/24 23:06 650 MG Ondansetron HCl 4 mg Q4HP PRN IV 12/04/24 03:30 Diagnostic Test (Pha) 1 strip ACHS 12/04/24 07:00 12/07/24 22:00 1 STRIP Vancomycin HCl 0 ml @ 0 mls/hr UD IV 12/04/24 06:45 Pantoprazole Sodium 40 mg BID IV 12/04/24 06:45 12/07/24 21:16 40 MG Acetaminophen/ Hydrocodone Bitart 1 tab Q4HPRN PRN PO 12/04/24 14:30 12/06/24 04:20 1 TAB Morphine Sulfate 1 mg Q4HPRN PRN IV 12/04/24 14:30 Tamsulosin HCl 0.4 mg QPM PO 12/04/24 18:00 12/07/24 17:09 0.4 MG Metoprolol Succinate 25 mg DAILY PO 12/05/24 10:00 12/07/24 08:42 25 MG Aspirin 81 mg DAILY PO 12/05/24 10:00 12/07/24 08:42 81 MG Clopidogrel Bisulfate 75 mg DAILY PO 12/05/24 10:00 12/07/24 08:43 75 MG Azithromycin 250 ml @ 125 mls/hr DAILY IV 12/05/24 15:00 12/07/24 08:42 125 MLS/HR Meropenem 50 ml @ 17 mls/hr Q12HR IV 12/05/24 22:00 12/07/24 21:16 17 MLS/HR Norepinephrine Bitartrate 250 ml @ 3.75 mls/hr Q24H IV 12/05/24 18:15 12/05/24 18:15 3.75 MLS/HR objective Gen.: Patient lying in bed in no apparent distress. On supplemental oxygen. Head: Normocephalic, atraumatic. Eyes: EOMI/PERRLA. Ears: Normal hearing. Normal anatomy. Neck/trachea: Trachea midline, supple. Nose: Normal external anatomy. Mouth: Moist mucous membranes. Chest: Decreased air entry bilaterally. No wheezing or rhonchi. Cardiovascular: Positive S1, positive S2. Regular rate and rhythm. Abdomen: Positive bowel sounds in all 4 quadrants. Soft, non-tender, non- distended. : Deferred. Rectal: Deferred. Skin: Warm, dry. Intact. Extremities: 2+ radial pulses bilaterally. No lower extremity edema. Neuro: Awake, alert, oriented x3. No gross motor or sensory deficits. Cranial nerves II through XII intact. Gait not assessed. laboratory and microbiology Laboratory Tests 12/07/24 04:47 Test 12/07/24 04:47 Range/Units Serum Glucose 88 74-106 mg/dL Assessment/Plan Impression: Acute hypoxic respiratory failure Dependence on supplemental oxygen Possible urinary tract infection CAD, s/p 3-vessel CABG. Septic shock Cerebrovascular accident Left pleural effusion Atelectasis Events: Remains on supplemental oxygen, 2 LPM NC Taper O2 as tolerated CT head - positive CVA - plan for higher level of care. Brain MRI shows e/o multiple strokes; small area of restricted diffusion involving the anterior body/genu of corpus callosum c/w acute to subacute infarct. No acute hemorrhage or mass effect. Scattered punctate foci of restricted diffusion in the bilateral frontal and right parietal lobe deep white matter, which may represent tiny foci of acute to subacute infarcts. Carotid Doppler showed no stenosis. CXR today reviewed, shows pulmonary congestion and edema. Off pressors since 2200 on 12/05/24, hemodynamically stable. Monitor blood pressure Head of bed elevation Aspiration precautions Monitor hemoglobin Continue antibiotics Incentive spirometry Protonix BID Nephrology recommendations appreciated Plan for hemodialysis IV fluids Accu-Cheks, ISS PRN. Labs and imaging reviewed. Rest of plan as noted below. Plan: Supplemental oxygen Titrate to keep O2 sats above 92%. Pressors if necessary for hemodynamic support Titrate to keep mean arterial pressure greater than 65 mmHg. Echocardiogram reviewed, notable for EF 50% Cardiology recs appreciated. Continue antibiotics Incentive spirometry Accu-Cheks, ISS PRN. Monitor renal function. Monitor electrolytes. Supplement as necessary. Hyperkalemia - received hyperkalemia cocktail on 12/05 Monitor ins and outs. Pond for strict ins and outs Plan for HLOC due to CVA. DVT prophylaxis. Prognosis: Poor given patient's multiple co-morbidities. Condition: Critical Rest of plan per hospitalist and other consultants. A total of 35 minutes of critical care time was spent reviewing the patient record, examining the patient, making a diagnostic and therapeutic plan, discussing this plan with the medical personnel, following up on diagnostic studies and following the patient for clinical stability excluding any and all procedures. At least 50% of this time was spent in direct, [id number] contact. Thank you, Dr. Smith, for allowing me to participate in this patient's care. Further recommendations will depend on the patient's clinical course. Please do not hesitate to contact me if you have any questions or concerns. This medical document was created using an electronic medical record system with [employer] dictation system. Although these documentations are being carefully reviewed, there may still be some phonetic and typographical changes. The errors are purely typographical, due to imperfection on the software program, and do not reflect any compromise in the patient's medical care. Dietary Evaluation Review Comments: 1) Ergocalciferol 50,000IU weekly 2) Jose L 1 pk daily, MVI w/ mineral 1 tab, Vit C 500mg BID, Zinc sulfate 220mg daily x 10 days 3) Advance to [id number] + renal special 80gm protein diet 4) Continue current plan of care Expected Outcomes/Goals: Advance diet to meet at least 75% estimated needs FU 2-3 days Plan discussed with: Other (VIJAY Crawford) Critical Care Time(min): 35 CC Plasma Assessment Blood Product Administration S: 1105 JERAMY CAMARA MD Dec 07, 2024 23:36
[2024-12-08] VITALS (45 sets, daily range): BP systolic 92–142; BP diastolic 51–76; PULSE 62–81; RESP 10–27; TEMP 97.7–100.5; O2SAT 89–100
--- NOTE | 2024-12-08 03:59 | DVH ---
CHEST RADIOGRAPH Indication: dyspnea Technique: Single frontal view of the chest was obtained COMPARISON: XY CHEST XRAY 1 VIEW on DOS: 12/07/24, XY CHEST XRAY 1 VIEW on DOS: 12/06/24, XY CHEST PORT ABLE on DOS: 12/05/24, XY CHEST XRAY 1 VIEW on DOS: 12/05/24, XY CHEST PORTABLE on DOS: 12/03/24 FINDINGS: Lines and Tubes: None Lungs: Persistent right hemidiaphragmatic elevation with diffuse increased prominence of the pulmonar y vasculature. Superimposed pulmonary infiltrate not excluded. Pleura: No effusion. No pneumothorax. Cardiomediastinal contours: Unremarkable Bones: Unremarkable IMPRESSION: 1. Stable diffuse increased prominence of the pulmonary vasculature. Superimposed pulmonary infiltra te not excluded.
[2024-12-08 06:07] LABS: Hematocrit 28.8 % (41.0-53.0)
[2024-12-08 06:10] LABS: Hemoglobin 9.3 g/dL (13.5-17.5); Mean Corpuscular Hemoglobin 27.7 pg (28.0-32.0); Mean Corpuscular Hgb Conc. 32.3 g/dL (32.0-36.0); Mean Corpuscular Volume 85.5 fL (80.0-100.0); Platelet Count (auto) 135 10^3/uL (140-450); Red Blood Cells 3.36 10^6/uL (4.5-5.90); Red Cell Distribution Width 16.6 % (11.8-14.3)
[2024-12-08 06:19] LABS: INR 1.19 (0.9-1.15); Prothrombin Time 12.4 sec (9.3-11.8)
[2024-12-08 06:20] LABS: Alanine Aminotransferase 40 U/L (7-40); Anion Gap 11 (5-15); BUN/Creatinine Ratio 20.8 (10.0-20.0); Chloride 102 mmol/L (98-107); Glucose 86 mg/dL (74-106); Potassium 4.5 mmol/L (3.5-5.1); Total Protein 5.8 g/dL (5.7-8.2)
[2024-12-08 06:25] LABS: Carbon Dioxide 18 mmol/L (20-31); Sodium 131 mmol/L (136-145)
[2024-12-08 06:26] LABS: Albumin 2.4 g/dL (3.2-4.8); Alkaline Phosphatase 606 U/L (46-116); Aspartate Aminotransferase 102 U/L (13-40); Bilirubin, Total 2.1 mg/dL (0.2-1.0); Calcium 7.5 mg/dL (8.7-10.4); Magnesium 2.7 mg/dL (1.6-2.6); Phosphorus 6.5 mg/dL (2.4-5.1)
[2024-12-08 06:27] LABS: Blood Urea Nitrogen 94 mg/dL (9-23)
[2024-12-08 07:08] LABS: White Blood Cell 0.6 10^3/uL (4.4-10.8)
[2024-12-08 07:09] LABS: Band Neutrophils % (manual) 0; Basophils % (manual) 0 (0.0-2.0); Blast Cells 0; Metamyelocytes % 0; Myelocytes % 0; Promyelocytes % 0; Reactive Lymphocytes 0
[2024-12-08 08:09] LABS: Eosinophils % (manual) 5 (0-7); Lymphocytes % (manual) 53 (10.0-50.0); Monocytes % (manual) 32 (0-12); Platelet Estimate Decreased
--- NOTE | 2024-12-08 10:19 | DVHPN2 ---
Progress Note Date Seen: Dec 08, 2024 Has the PT tested + for MRSA If YES, has PT been informed?: No Medical Necessity Reason Pt with a Central, PICC or Fol: Yes The following are medically ne: Pond Catheter Reason for pond catheter: Bladder Retention/Obstruc, Strict I&O Subjective Patient reports: Feels better Objective vital signs Vital Sign Date Time Temp Pulse Resp B/P (MAP) Pulse Ox O2 Delivery O2 Flow Rate FiO2 12/08/24 08:00 67 10 120/59 (79) 100 12/08/24 08:00 97.8 97.8 12/08/24 06:00 Nasal Cannula* 2 28 Total Intake and Output 12/07/24 12/07/24 12/08/24 15:00 23:00 07:00 Intake Total 800 ml 150 ml 240 ml Output Total 375 ml 525 ml Balance 800 ml -225 ml -285 ml medications Current Medications Medications Dose Ordered Sig/Shavon Route Start Time Stop Time Status Last Admin Dose Admin Acetaminophen 650 mg Q6HP PRN PO 12/04/24 03:30 12/07/24 23:06 650 MG Ondansetron HCl 4 mg Q4HP PRN IV 12/04/24 03:30 Diagnostic Test (Pha) 1 strip ACHS 12/04/24 07:00 12/07/24 22:00 1 STRIP Vancomycin HCl 0 ml @ 0 mls/hr UD IV 12/04/24 06:45 Pantoprazole Sodium 40 mg BID IV 12/04/24 06:45 12/07/24 21:16 40 MG Acetaminophen/ Hydrocodone Bitart 1 tab Q4HPRN PRN PO 12/04/24 14:30 12/08/24 04:28 1 TAB Morphine Sulfate 1 mg Q4HPRN PRN IV 12/04/24 14:30 Tamsulosin HCl 0.4 mg QPM PO 12/04/24 18:00 12/07/24 17:09 0.4 MG Metoprolol Succinate 25 mg DAILY PO 12/05/24 10:00 12/07/24 08:42 25 MG Aspirin 81 mg DAILY PO 12/05/24 10:00 12/07/24 08:42 81 MG Clopidogrel Bisulfate 75 mg DAILY PO 12/05/24 10:00 12/07/24 08:43 75 MG Azithromycin 250 ml @ 125 mls/hr DAILY IV 12/05/24 15:00 12/07/24 08:42 125 MLS/HR Meropenem 50 ml @ 17 mls/hr Q12HR IV 12/05/24 22:00 12/07/24 21:16 17 MLS/HR Norepinephrine Bitartrate 250 ml @ 3.75 mls/hr Q24H IV 12/05/24 18:15 12/05/24 18:15 3.75 MLS/HR Calcium Acetate 1,334 mg TIDWMEALS PO 12/08/24 12:00 UNV Examination: GENERAL:Abnormal, LUNGS:Abnormal, CVS:Abnormal, SKIN:Abnormal laboratory and microbiology Laboratory Tests 12/08/24 05:04 Test 12/08/24 05:04 Range/Units Serum Glucose 86 74-106 mg/dL Microbiology Date/Time Source Procedure Growth Status 12/05/24 21:09 Nose MRSA Screen - Final Complete 12/05/24 12:11 Blood Blood Culture - Preliminary NO GROWTH AFTER 48 HOURS OF INCUBATION. 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 Acute TIA (12/05/24) due to hypotension s/p EMILY unremarkable IV diuretic declining renal function and worsening congestion, explained likely need for HD and consent verbally obtained. 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 12/07/24 Transmitted Consult 14:33 Acute Hepatitis Panel LAB 12/07/24 In Process 18:38 Consistent DIET 12/08/24 Transmitted Carb(Ccho)Diabetes Lunch Calcium Acetate PHA 12/08/24 Logged Capsule (Phoslo 12:00 Dietary Evaluation Review Comments: 1) Ergocalciferol 50,000IU weekly 2) Jose L 1 pk daily, MVI w/ mineral 1 tab, Vit C 500mg BID, Zinc sulfate 220mg daily x 10 days 3) Advance to [id number] + renal special 80gm protein diet 4) Continue current plan of care Expected Outcomes/Goals: Advance diet to meet at least 75% estimated needs FU 2-3 days Critical Care Time (mins): 36 CC Plasma Assessment Blood Product Administration S: 1105 PRABHU ERNANDEZ MD Dec 08, 2024 10:19
[2024-12-08] MEDS: SODIUM CHL 0.9% 1000 ML BAG XX ONE (11:00)
--- NOTE | 2024-12-08 11:45 | DVHPN2 ---
Subjective Cardiology follow-up Changes from previous H/P or p: No Changes System Changes No cardiac events reports Objective Vitals Vital Signs Date Time Temp Pulse Resp B/P (MAP) Pulse Ox O2 Delivery O2 Flow Rate FiO2 12/08/24 10:35 72 107/61 12/08/24 10:00 18 100 Nasal Cannula* 2 28 12/08/24 08:00 97.8 97.8 Intake/Output Intake and Output 12/08/24 07:00 Intake Total 1190 ml Output Total 900 ml Balance 290 ml Intake Oral 340 ml IV Total 850 ml Output Urine Total 900 ml # Bowel Movements 3 Exam Denies cardiac symptom General Appearance: Alert, Oriented X3 Medications Current Medications Medications Dose Ordered Sig/Shavon Route Start Time Stop Time Status Last Admin Dose Admin Acetaminophen 650 mg Q6HP PRN PO 12/04/24 03:30 12/07/24 23:06 650 MG Ondansetron HCl 4 mg Q4HP PRN IV 12/04/24 03:30 Diagnostic Test (Pha) 1 strip ACHS 12/04/24 07:00 12/08/24 07:00 1 STRIP Vancomycin HCl 0 ml @ 0 mls/hr UD IV 12/04/24 06:45 Pantoprazole Sodium 40 mg BID IV 12/04/24 06:45 12/07/24 21:16 40 MG Acetaminophen/ Hydrocodone Bitart 1 tab Q4HPRN PRN PO 12/04/24 14:30 12/08/24 10:29 1 TAB Morphine Sulfate 1 mg Q4HPRN PRN IV 12/04/24 14:30 Tamsulosin HCl 0.4 mg QPM PO 12/04/24 18:00 12/07/24 17:09 0.4 MG Metoprolol Succinate 25 mg DAILY PO 12/05/24 10:00 12/08/24 10:35 25 MG Aspirin 81 mg DAILY PO 12/05/24 10:00 12/08/24 10:30 81 MG Clopidogrel Bisulfate 75 mg DAILY PO 12/05/24 10:00 12/08/24 10:28 75 MG Azithromycin 250 ml @ 125 mls/hr DAILY IV 12/05/24 15:00 12/07/24 08:42 125 MLS/HR Meropenem 50 ml @ 17 mls/hr Q12HR IV 12/05/24 22:00 12/07/24 21:16 17 MLS/HR Norepinephrine Bitartrate 250 ml @ 3.75 mls/hr Q24H IV 12/05/24 18:15 12/05/24 18:15 3.75 MLS/HR Calcium Acetate 1,334 mg TIDWMEALS PO 12/08/24 12:00 Laboratory Results Laboratory Tests 12/08/24 05:04 Chemistry Test 12/08/24 05:04 Albumin 2.4 g/dL (3.2-4.8) L Calcium Level 7.5 mg/dL (8.7-10.4) L Magnesium Level 2.7 mg/dL (1.6-2.6) H Phosphorus Level 6.5 mg/dL (2.4-5.1) H Total Protein 5.8 g/dL (5.7-8.2) Coagulation Test 12/08/24 05:04 Prothrombin Time 12.4 sec (9.3-11.8) H Prothrombin Time INR 1.19 (0.9-1.15) H Activated Partial Thromboplast Time 43.0 SEC (24.5-34.5) H Lipid panel Test 12/07/24 13:55 Cholesterol Level 77 mg/dL (< 200) HDL Cholesterol 9 mg/dL (40-59) L Triglycerides Level 141 mg/dL (< 150) Cardiac Markers Test 12/08/24 05:04 B-Type Natriuretic Peptide 374.68 pg/mL (0-100) LFT Test 12/08/24 05:04 Alanine Aminotransferase (ALT) 40 U/L (7-40) Alkaline Phosphatase 606 U/L (46-116) H Aspartate Amino Transferase (AST) 102 U/L (13-40) H Total Bilirubin 2.1 mg/dL (0.2-1.0) H Urinalysis Test 12/04/24 16:50 Urine Color Yellow (Yellow) Urine Clarity Turbid (Clear) H Urine pH 5.5 (5.0-9.0) Urine Specific [place] 1.015 (1.001-1.035) Urine Protein 1+ (Negative) H Urine Ketones Negative (Negative) Urine Blood Trace /uL (Negative) H Urine Nitrite Negative (Negative) Urine Bilirubin Negative (Negative) Urine Urobilinogen Normal mg/dL (Negative) Urine Leukocyte Esterase Negative /uL (Negative) Urine RBC <1 /hpf (0 - 3) Urine Microscopic WBC 1 /HPF (0-3) Urine Squamous Epithelial Cells Few /hpf (<5) Urine Amorphous Crystals Few /hpf (None Seen) Urine Bacteria Few /hpf (None Seen) H Urine Creatinine 70.59 mg/dL (30.0-125.0) Urine Protein/Creatinine Ratio 1.84 Urine Sodium 23 mmol/L (40-220) L Urine Glucose Normal mg/dL (Normal) Urine Total Protein 129.7 mg/dL (1-14) H Microbiology Microbiology Date/Time Source Procedure Growth Status 12/05/24 21:09 Nose MRSA Screen - Final Complete 12/05/24 12:11 Blood Blood Culture - Preliminary NO GROWTH AFTER 48 HOURS OF INCUBATION. Resulted 12/04/24 16:50 Voided Urine Urine Culture - Final Complete Assessment/Plan Assessment/Plan Acute CVA ruled out cardioembolic source Sepsis secondary to pneumonia and urinary tract infection Substernal soft tissue density likely secondary to recent CABG Severe coronary artery disease status post triple-vessel CABG (on Plavix and aspirin) Chronic HFpEF, NYHA class III Acute on chronic anemia, rule out GI bleed GOPAL on CKD Neutropenia Hypertension Hyperlipidemia Hyperkalemia Transaminitis Type 2 diabetes mellitus Obesity Plan/Recommendation (Dr. Sutton) Status post EMILY with negative findings. We will sign off. This medical document was created using an electronic medical record system with voice recognition software and computerized dictation system. Although this document has been carefully reviewed, there might still be some phonetic and typographical errors. Occasional wrong-word or ``sound-alike substitutions may have occurred due to the inherent limitations of voice recognition software. These areas are purely typographical due to imperfections of the software programs and do not reflect any compromise in the patient's medical care. Please read the chart carefully and recognize, using context, where these substitutions have occurred. Plan discussed with: Patient, Spouse, Daughter, Other Plan discussed with: Patient, Other (RN) Date of Service: Dec 08, 2024 Billing Provider: SOO SUTTON Sr., MD Common Visit Codes: CONSULT ONLY AMAYA KEE MANAGER RADIO Dec 08, 2024 11:45
--- NOTE | 2024-12-08 14:59 | DVH ---
EXAM: XY CHEST PORTABLE TECHNIQUE: Single frontal chest radiograph CLINICAL HISTORY: DIALYSIS CATHETER PLACEMENT COMPARISON: XY CHEST XRAY 1 VIEW on DOS: 12/08/24, XY CHEST XRAY 1 VIEW on DOS: 12/07/24, XY CHEST XRAY 1 VIEW on DOS: 12/06/24 Findings/Impression: Frontal chest radiograph demonstrates no acute osseous or superficial soft tissue abnormalities. Left-sided IJ catheter terminates near the superior cavoatrial junction. The trachea is midline. The cardiac silhouette and mediastinum are within normal limits. Low lung volumes with bronchovascular crowding. No pneumothorax, pleural effusions, or consolidations.
[2024-12-08] MEDS: HEPARIN 1,000 UNITS/ml 1ML VIAL IV ONE (15:26)
[2024-12-08] MEDS: CALCIUM ACETATE 667 MG CAP PO SCH (15:31)
--- NOTE | 2024-12-08 15:39 | DVHNC2 ---
Central Line Recorder of insertion practice: Stock Letterer Occupation of station cook: Attending Physician Indication: Other Room prepared for procedure: Yes Stock Letterer performed hand hygien: Yes Maximal sterile barrier precau: Mask/Eye shield, Sterile gown, Cap, Sterlie gloves, Large sterlie drape Insertion site: Left, Internal jugular Central line catheter type: Dialysis non-tunneled Central line exchanged over a: No Antiseptic ointment applied to: No Post Assessment: Chest X-Ray, No Pneumothorax Informed consent obtained: Yes Risks/benefits/alt described: Yes Notes A time out was performed. My hands were washed immediately prior to the procedure. I wore a surgical cap, mask with protective eyewear, full gown and sterile gloves throughout the procedure. The patient was placed in Trendelenburg position. LEFT chest region was prepped using chlorhexidine scrub and draped in sterile fashion using a full drape and sterile probe cover and sterile gel employed. The medial and lateral heads of the sternocleidomastoid muscle were identified as was the carotid pulse. The Internal Jugular vein was identified using the ultrasound. Anesthesia was achieved over the vein using 1% lidocaine. Using real-time out of plane guidance, the introducer needle was inserted into the Internal Jugular vein under direct ultrasound visualization. Venous blood was withdrawn. The syringe was removed and a guidewire was advanced into the introducer needle. The guidewire was visualized in the Internal Jugular Vein by ultrasound. A small incision was made at the skin surface with a scalpel and the introducer needle was exchanged for a dilator 2x over the guidewire. After appropriate dilation was obtained, the dilator was exchanged over the wire for a dialysis catheter. The wire was removed and the catheter was sutured. A sterile sorbaview shield was placed over the catheter at the insertion site. The patient tolerated the procedure without any hemodynamic compromise. At time of procedure completion, all ports aspirated and flushed properly. Post-procedure chest x-ray catheter in place no complications . Date of Service: Dec 08, 2024 Billing Provider: JERAMY CAMARA MD Common Visit Codes: PROCEDURE ONLY Procedure Codes: 12425-ERCWVY NON-TUNNEL CV CATH KAMILLE VÁSQUEZ RESIDENT Dec 08, 2024 15:39 JERAMY CAMARA MD Dec 10, 2024 14:13
[2024-12-08] MEDS: FILGRASTIM (TBO) 300 MCG/0.5 ML SYRG SC SCH (15:46)
--- NOTE | 2024-12-08 15:47 | DVHPNRES ---
Progress Note Date Seen: Dec 08, 2024 Resident Creating Document: KAMILLE VÁSQUEZ RESIDENT Has the PT tested + for MRSA If YES, has PT been informed?: No Medical Necessity Reason Pt with a Central, PICC or Fol: Yes The following are medically ne: Pond Catheter Reason for pond catheter: Bladder Retention/Obstruc, Strict I&O Subjective Review of Systems Mr. Vu is a 59-year-old mg past medical history of coronary artery disease status post CABG 10/2024, bilateral cerebral white matter October 2024, status post bed bound and chronic indwelling Pond, hypertension hyperlipidemia who was brought to the ER by the family with a chief complaint of heavy breathing, fever, chills and anuria for the past 3 days. Per daughter at bedside, patient never followed with urology or asbestos removal worker after he was discharged from this facility on 11/07/24, usually makes 1600 cc of urine a day, which reduced to 300 cc in the past 3 days in his urine was dark. Patient also reported dysuria and abdominal discomfort. He also reports heavy breathing and mild nonproductive cough. Per daughter, patient has a wound in his back and is also draining white pus- like substance. On arrival, patient was febrile at 101.2 F, tachycardic, blood pressure 144/77 and requiring 4 L oxygen supplementation. White cell was 3.6, hemoglobin 8.8 and hematocrit 23. Patient had hyperkalemia, potassium was 6 which downtrended to 5.4. Creatinine 2.9 and BUN 77. Patient's Pond catheter was removed given a dose placed more than a month, the patient does not urinate on his own, bladder scan showed empty bladder, nephrology was consulted. Chest x-ray shows bibasilar consolidation. The patient was started on IV vancomycin and IV cefepime along with IV fluids. Has mildly elevated transaminitis. Past medical/surgical history: See above Home medication: Atorvastatin, clopidogrel, lisinopril, metoprolol 25 daily Patient seen and examined at bedside. Cardiology consulted given CT findings of substernal soft tissue density: new echo ordered, patient is having GOPAL due to sepsis and urinary obstruction, Pond catheter placed back, cefepime was changed to meropenem, azithromycin was added to cover atypicals and hyperkalemia protocol was done, new K at noon normal, patient is having febrile neutropenia, CT scan of abdomen showed right groin lymphadenopathy concerning of lymphoma, hematology is consulted: leukopenia work up and lymphadenopathy biopsy 12/06/24 at 5: 30 pm, patient had an episode of AMS, weakness and hypotension, increased L leg weakness and L facial droop. Code stroke activated, neurology consult stated recrudescence of previous stroke due to hypotension, patient not candidate for thrombolysis, CT scan no acute stroke or hemorrhage, patient was placed on Levophed and wean off at 8 pm, fluids IV 100 cc during the night, today x ray showed mild congestion IV fluids reduced to 60cc and furosemide IV was started. New MRI showed multiple small stroke in different places: probably cardioembolic etiology. Neurology Dr Cabral, stated no need of CTA or thrombectomy, also transfer to [facility] was planning but according to the center he had his CABG, patient can be managed in [facility]. Also, lymphadenopathy biopsy was done. 1RBC was transfused per cardiology 12/07/24: EMILY was ordered and will be done today. Worsening renal function; nephrology will discuss possible hemodialysis with the patient and his family 12/08/24: EMILY negative, neupogen started, patient had fevers last nigh, new pancultures, renal function is trending high, dialysis cath on place, possible HD today Objective vital signs Vital Sign Date Time Temp Pulse Resp B/P (MAP) Pulse Ox O2 Delivery O2 Flow Rate FiO2 12/08/24 12:00 73 12/08/24 12:00 17 100 Nasal Cannula* 2 28 12/08/24 12:00 98.7 92/59 (70) 98.7 Total Intake and Output 12/07/24 12/07/24 12/08/24 15:00 23:00 07:00 Intake Total 800 ml 150 ml 240 ml Output Total 375 ml 525 ml Balance 800 ml -225 ml -285 ml medications Current Medications Medications Dose Ordered Sig/Shavon Route Start Time Stop Time Status Last Admin Dose Admin Acetaminophen 650 mg Q6HP PRN PO 12/04/24 03:30 12/07/24 23:06 650 MG Ondansetron HCl 4 mg Q4HP PRN IV 12/04/24 03:30 Diagnostic Test (Pha) 1 strip ACHS 12/04/24 07:00 12/08/24 11:30 1 STRIP Vancomycin HCl 0 ml @ 0 mls/hr UD IV 12/04/24 06:45 Pantoprazole Sodium 40 mg BID IV 12/04/24 06:45 12/08/24 13:01 40 MG Acetaminophen/ Hydrocodone Bitart 1 tab Q4HPRN PRN PO 12/04/24 14:30 12/08/24 10:29 1 TAB Morphine Sulfate 1 mg Q4HPRN PRN IV 12/04/24 14:30 Tamsulosin HCl 0.4 mg QPM PO 12/04/24 18:00 12/07/24 17:09 0.4 MG Metoprolol Succinate 25 mg DAILY PO 12/05/24 10:00 12/08/24 10:35 25 MG Aspirin 81 mg DAILY PO 12/05/24 10:00 12/08/24 10:30 81 MG Clopidogrel Bisulfate 75 mg DAILY PO 12/05/24 10:00 12/08/24 10:28 75 MG Azithromycin 250 ml @ 125 mls/hr DAILY IV 12/05/24 15:00 12/08/24 10:00 125 MLS/HR Meropenem 50 ml @ 17 mls/hr Q12HR IV 12/05/24 22:00 12/07/24 21:16 17 MLS/HR Norepinephrine Bitartrate 250 ml @ 3.75 mls/hr Q24H IV 12/05/24 18:15 12/05/24 18:15 3.75 MLS/HR Calcium Acetate 1,334 mg TIDWMEALS PO 12/08/24 12:00 12/08/24 15:31 1,334 MG Tbo-Filgrastim 300 mcg DAILY SC 12/08/24 12:30 12/08/24 15:46 300 MCG Examination General: Afebrile, palor, mucosae are moist Cardiovascular: sternal wound clean, sternum stable, regular S1 and S2. No murmurs, gallops or rubs. No JVD elevation. No pedal edema. HD cath placed Respiratory: Normal B/L air entry on 2 L NC. Clear lung sounds on auscultation Abdomen: Soft, nontender, nondistended, normoactive bowel sounds, no rebound tenderness, no organomegaly, no masses. Neurological: Residual left lower extremity weakness.. Pupils are isocoric and reactive. Psych/Mental Status: A/Ox3 Patient has a stage II sacral decubitus ulcer, with erythema, not draining actively laboratory and microbiology Laboratory Tests 12/08/24 05:04 Test 12/08/24 05:04 Range/Units Serum Glucose 86 74-106 mg/dL Microbiology Date/Time Source Procedure Growth Status 12/05/24 21:09 Nose MRSA Screen - Final Complete 12/05/24 12:11 Blood Blood Culture - Preliminary NO GROWTH AFTER 72 HOURS OF INCUBATION. Resulted 12/04/24 16:50 Voided Urine Urine Culture - Final Complete Problem List/Assessment/Plan Problem List/Assessment/Plan Neurology #Acute metabolic/hypoxic encephalopathy due to stroke and sepsis #Possible acute cardioembolic stroke: corpus callosum, bilateral frontal and right parietal #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 There is no evidence of acute hemorrhage. There is no mass effect. There are additional scattered punctate foci of restricted diffusion in the bilateral frontal and right parietal lobe deep white matter which may represent tiny foci of acute to subacute infarcts. Bran MRI oct 2024: There prominent diffusion restriction also seen within the genu and anterior body of the corpus callosum. There is an apparent punctate additional focus of diffusion restriction in the medulla Neurology on board Aspirin and Plavix continue Continue atorvastatin 40 mg EMILY normal Carotid duplex: No hemodynamically significant stenosis within the carotid arteries. Cardiology #Severe coronary artery disease status post triple-vessel CABG #Substernal soft tissue density likely secondary to recent CABG #Possible acute on Chronic HFpEF, NYHA class III Cardiology signed off 12/05/24 ECHO: Left atrial enlargement with dilation of the sinuses of Valsalva. Mild RV enlargement. Moderate aortic sclerosis with diminished excursion of the leaflets and calcification of what appears to be the right and non coronary cusps. Left ventricular function appears preserved. EF of about 50% with normal RV function. The tricuspid is normal. Doppler reveals some mild to moderate TR. No pericardial effusion masses or vegetations. 12/04/24: Substernal soft tissue density and stranding without a large fluid collection. Fat stranding is nonspecific and should be correlated with timing of surgery. Alternatively this could reflect an infectious or inflammatory etiology. Small bilateral pleural effusions and passive atelectasis. Cardiomegaly. Aspirin and Plavix continue Continue atorvastatin 40 mg Bumex per nephro Hold on other GDMT: GOPAL and shock HD Pulmonology #Septic shock due to possible pneumonia #Acute respiratory failure #PNA gram+/gram- #Small bilateral pleural effusions #Passive atelectasis #Mixed base disorder: respiratory alkalosis and metabolic acidosis Survey Supervisor and critical care on board Azithromycin + Vanco+ Meropenem O2 2LT Fevers today: pancultures GI #Transaminitis secondary to chronic liver disease #Gallbladder polyps Coarsened liver echotexture suggestive of chronic liver disease. Trace ascites. Partially visualized trace right pleural effusion. Gallbladder polyps measuring up to 0.4 cm FOB negative Renal #GOPAL, likely vasomotor superimposed on CKD stage 3B #Dialysis urgency #Severe fluid overload #Hyperkalemia secondary to CKD #Hyperparathyroidism #Mixed base disorder: respiratory alkalosis and metabolic acidosis #Chronic indwelling Pond Urine culture came negative Aircraft Electrician on board Discussing the case with Dr Gonzales, patient will need dialysis, non tunneled catheter placed: pending HD Bumex per nephro Hematology #Pancitopenia: rule out neoplasm #Febrile neutropenia #Retroperitoneal lymphadenopathy #Rule out lymphoma #Normochromic and normocytic Anemia multifactorial: rule out neoplasm, CKD Lymph node biopsy done Check hepatitis panel NOLBERTO double-stranded DNA CMV Christine-Deshpande virus, protein electrophoresis: Igg for CMV and EBV positive 2RBC given FOB negative Manager Provider Relations on board Neupogen started Infectious #Febrile neutropenia #Septic shock due to possible pneumonia #Possible septic emboli EMILY Azithromycin + Vanco+ Meropenem Endocrinology #Hypoglycemia #Prediabetes Diabetic diet Stop insulin Case discussed with Dr Mills Plan discussed with: Patient, Other (rn) My Orders My Orders Orders - KAMILLE VÁSQUEZ RESIDENT Procedure Category Date Status Time Chest Xray 1 View XY 12/08/24 Resulted 04:00 Filgrastim-Tbo PHA 12/08/24 In Process (Granix) 12:30 Blood Culture JOSE LUIS 12/08/24 In Process 12:19 Urine Bacterial JOSE LUIS 12/08/24 Uncollected Culture 12:19 Respiratory Culture JOSE LUIS 12/08/24 Uncollected W/ Gs 12:19 Dietary Evaluation Review Comments: 1) Ergocalciferol 50,000IU weekly 2) Jose L 1 pk daily, MVI w/ mineral 1 tab, Vit C 500mg BID, Zinc sulfate 220mg daily x 10 days 3) Advance to [id number] + renal special 80gm protein diet 4) Continue current plan of care Expected Outcomes/Goals: Advance diet to meet at least 75% estimated needs FU 2-3 days CC Plasma Assessment Blood Product Administration S: [id number] Date of Service: Dec 08, 2024 Billing Provider: ASHLEY MILLS MD Common Visit Codes: 84193-UFTVLSGK CARE 30-74 MIN KAMILLE VÁSQUEZ RESIDENT Dec 08, 2024 15:47 ASHLEY MILLS MD Dec 08, 2024 22:26
[2024-12-08 17:07] LABS: CCP IgG/IgA Antibody 7 units (0-19)
[2024-12-08 19:04] LABS: Hematocrit 29.5 % (41.0-53.0); Hemoglobin 9.8 g/dL (13.5-17.5)
[2024-12-08 20:33] LABS: Urine Bacteria None Seen /hpf (None Seen)
[2024-12-08 20:45] LABS: Urine Blood 3+ /uL (Negative); Urine Clarity Turbid (Clear); Urine Color Yellow (Yellow); Urine Protein, UAD 1+ (Negative); Urine Specific Gravity 1.014 (1.001-1.035); Urine Squamous Epithelial Cell None Seen /hpf (<5); Urine Urobilinogen Normal (Negative); Urine WBC 6 /HPF (0-3)
--- NOTE | 2024-12-08 21:31 | DVHPN2 ---
Progress Note - Dictate Date Seen: Dec 08, 2024 Has the PT tested + for MRSA If YES, has PT been informed?: No Medical Necessity Reason Pt with a Central, PICC or Fol: Yes The following are medically ne: Pond Catheter Reason for pond catheter: Bladder Retention/Obstruc, Strict I&O Subjective Mr. Narciso White is a 59 years old right-handed gentleman with a history of hypertension, diabetes, dyslipidemia, coronary artery disease, heart attack, recent CABG, he was taken to the [facility] on 12/03/2024 with a chief company of fever. But he was also developed acute stroke syndrome I have seen and examined the patient, discussed with his nurse, he was looks very weak today, awake, oriented x3, He had his 1st hemodialysis on 12/08/2024 UDS, 12/04/2024: Negative Urinalysis, 12/04/2024: WBC: 1, urine leukocyte esterase: Negative WBC/HB/PLT/MCV, 12/06/2024: 0.6/7.8/147/84.5 12/07/2024: 0.8/8.2/141/it was 102 PTT/INR/PTT, 12/05/2024: 12.4/1.19/37.2 BUN/CR, 12/06/2024: 82/3.64 HGB A1c, 12/04/2024: 5.9 TBI/AST/ALT/AP, 12/06/2024: 1.5/68/37/454 TG/HDL/LDL/HDL, 12/06/2024: 138/79/20/11, 12/07/2024: 141/77/20/9 SIFE, 12/06/2024: Carotid Doppler, 12/07/2024: No hemodynamically significant stenosis within the carotid arteries Echocardiogram, 12/05/2024: Sinus rhythm. Left atrial enlargement with dilation of the sinuses of Valsalva. Mild RV enlargement. Moderate aortic sclerosis with diminished excursion of the leaflets and calcification of what appears to be the right and non coronary cusps. From the short axis view there does not appear to be limitation in motion. Normal pulmonic valve. Left ventricular function appears preserved. EF of about 50% with normal RV function. The tricuspid is normal. Doppler reveals some mild to moderate TR. No pericardial effusion masses or vegetations EMILY, 12/07/2024: Normal chamber dimensions. Valves appear to be structurally normal. Normal aortic mitral tricuspid and pulmonic valves Left ventricular function was preserved at 60% with normal RV function. Doppler reveals mild tricuspid insufficiency. Mild mitral insufficiency. No pericardial effusion masses or vegetations noted. The atrial appendage is normal. There are no thrombi present. Bubble study did not reveal crossover into the left side. Abnormal shunting otherwise present. MRI brain, 12/06/2024: 1. There is a small area of restricted diffusion involving the anterior body / genu of the corpus callosum consistent with an acute to subacute infarct. There is no evidence of acute hemorrhage. There is no mass effect. 2. There are additional scattered punctate foci of restricted diffusion in the bilateral frontal and right parietal lobe deep white matter which may represent tiny foci of acute to subacute infarcts vital signs Vital Sign Date Time Temp Pulse Resp B/P (MAP) Pulse Ox O2 Delivery O2 Flow Rate FiO2 12/08/24 20:00 97.7 75 15 118/76 (90) 100 97.7 12/08/24 18:00 Nasal Cannula* 2 28 Total Intake and Output 12/07/24 12/07/24 12/08/24 15:00 23:00 07:00 Intake Total 800 ml 150 ml 240 ml Output Total 375 ml 525 ml Balance 800 ml -225 ml -285 ml medications Current Medications Medications Dose Ordered Sig/Shavon Route Start Time Stop Time Status Last Admin Dose Admin Acetaminophen 650 mg Q6HP PRN PO 12/04/24 03:30 12/07/24 23:06 650 MG Ondansetron HCl 4 mg Q4HP PRN IV 12/04/24 03:30 Diagnostic Test (Pha) 1 strip ACHS 12/04/24 07:00 12/08/24 17:00 1 STRIP Vancomycin HCl 0 ml @ 0 mls/hr UD IV 12/04/24 06:45 Pantoprazole Sodium 40 mg BID IV 12/04/24 06:45 12/08/24 21:09 40 MG Acetaminophen/ Hydrocodone Bitart 1 tab Q4HPRN PRN PO 12/04/24 14:30 12/08/24 21:13 1 TAB Morphine Sulfate 1 mg Q4HPRN PRN IV 12/04/24 14:30 Tamsulosin HCl 0.4 mg QPM PO 12/04/24 18:00 12/08/24 17:55 0.4 MG Metoprolol Succinate 25 mg DAILY PO 12/05/24 10:00 12/08/24 10:35 25 MG Aspirin 81 mg DAILY PO 12/05/24 10:00 12/08/24 10:30 81 MG Clopidogrel Bisulfate 75 mg DAILY PO 12/05/24 10:00 12/08/24 10:28 75 MG Azithromycin 250 ml @ 125 mls/hr DAILY IV 12/05/24 15:00 12/08/24 10:00 125 MLS/HR Meropenem 50 ml @ 17 mls/hr Q12HR IV 12/05/24 22:00 12/08/24 21:09 17 MLS/HR Norepinephrine Bitartrate 250 ml @ 3.75 mls/hr Q24H IV 12/05/24 18:15 12/05/24 18:15 3.75 MLS/HR Calcium Acetate 1,334 mg TIDWMEALS PO 12/08/24 12:00 12/08/24 17:54 1,334 MG Tbo-Filgrastim 300 mcg DAILY SC 12/08/24 12:30 12/08/24 15:46 300 MCG objective General: the patient is well developed and nourished. No acute distress. MENTAL STATUS: Subjective SPEECH, LANGUAGE, HIGHER CORTICAL FUNCTION: no aphasia or dysathria. CRANIAL NERVES: Pupils are equal, round and reactive. EOMs full and conjugate. No nystagmus. Facial sensation intact in all three divisions bilaterally. Mandibular strength intact. Facial muscles symmetrical and strength intact. SENSATION: Sensation to touch and pinprick is diminished distally in the lower extremities, but no [id number] differences MOTOR: Normal tone in the upper and lower extremity. Normal muscle bulk. No fasciculations. No abnormal movements or posturing. Muscle strength of the major groups in the upper extremities is: close to 4/5. He can move both legs, muscle power feels 3-4/5. REFLEXES: Deep tendon reflexes are symmetrical. No pathological reflexes. CEREBELLAR/COORDINATION: No ataxia in the upper extremities GAIT/STATION: deferred. laboratory and microbiology Laboratory Tests 12/08/24 18:45 12/08/24 05:04 Test 12/08/24 05:04 Range/Units Serum Glucose 86 74-106 mg/dL Problem List Recent acute stroke with left-sided weakness Acute stroke syndrome MRI evident multiple strokes (11/08/2024) Pancytopenia Anemia Fever/sepsis Septic shock Coronary artery disease with recent CABG Diabetic polyneuropathy Assessment/Plan Monitoring Supportive treatment Follow-up lipid profile LINDA Care IV antibiotics Lipitor profile Aspirin 81 mg daily Lipitor 75 mg daily Physical therapist GI prophylaxis Up to chair He was aware of neuropathy related foot care More recommendation per clinical course This medical document was created using an electronic medical record system with [employer] dictation system. Although this document has been carefully reviewed, there may still be some phonetic and typographical errors. These areas are purely typographical due to imperfections of the software programs, and do not reflect any compromise in the patient's medical care. Prognosis poor Dietary Evaluation Review Comments: 1) Ergocalciferol 50,000IU weekly 2) Jose L 1 pk daily, MVI w/ mineral 1 tab, Vit C 500mg BID, Zinc sulfate 220mg daily x 10 days 3) Advance to [id number] + renal special 80gm protein diet 4) Continue current plan of care Expected Outcomes/Goals: Advance diet to meet at least 75% estimated needs FU 2-3 days Plan discussed with: Other CC Plasma Assessment Blood Product Administration S: [id number] NIKOLAS PRATT MD Dec 08, 2024 21:31
--- NOTE | 2024-12-08 22:43 | DVHPN2 ---
Progress Note - Dictate Date Seen: Dec 08, 2024 Has the PT tested + for MRSA If YES, has PT been informed?: No Medical Necessity Reason Pt with a Central, PICC or Fol: Yes The following are medically ne: Pond Catheter Reason for pond catheter: Bladder Retention/Obstruc, Strict I&O Subjective Patient seen and examined at bedside. Remains on supplemental oxygen Overnight events reviewed. vital signs Vital Sign Date Time Temp Pulse Resp B/P (MAP) Pulse Ox O2 Delivery O2 Flow Rate FiO2 12/08/24 22:00 79 19 116/69 (85) 99 12/08/24 22:00 Nasal Cannula* 2 12/08/24 20:00 97.7 97.7 Total Intake and Output 12/07/24 12/07/24 12/08/24 15:00 23:00 07:00 Intake Total 800 ml 150 ml 240 ml Output Total 375 ml 525 ml Balance 800 ml -225 ml -285 ml medications Current Medications Medications Dose Ordered Sig/Shavon Route Start Time Stop Time Status Last Admin Dose Admin Acetaminophen 650 mg Q6HP PRN PO 12/04/24 03:30 12/07/24 23:06 650 MG Ondansetron HCl 4 mg Q4HP PRN IV 12/04/24 03:30 Diagnostic Test (Pha) 1 strip ACHS 12/04/24 07:00 12/08/24 22:03 1 STRIP Vancomycin HCl 0 ml @ 0 mls/hr UD IV 12/04/24 06:45 Pantoprazole Sodium 40 mg BID IV 12/04/24 06:45 12/08/24 21:09 40 MG Acetaminophen/ Hydrocodone Bitart 1 tab Q4HPRN PRN PO 12/04/24 14:30 12/08/24 21:13 1 TAB Morphine Sulfate 1 mg Q4HPRN PRN IV 12/04/24 14:30 Tamsulosin HCl 0.4 mg QPM PO 12/04/24 18:00 12/08/24 17:55 0.4 MG Metoprolol Succinate 25 mg DAILY PO 12/05/24 10:00 12/08/24 10:35 25 MG Aspirin 81 mg DAILY PO 12/05/24 10:00 12/08/24 10:30 81 MG Clopidogrel Bisulfate 75 mg DAILY PO 12/05/24 10:00 12/08/24 10:28 75 MG Azithromycin 250 ml @ 125 mls/hr DAILY IV 12/05/24 15:00 12/08/24 10:00 125 MLS/HR Meropenem 50 ml @ 17 mls/hr Q12HR IV 12/05/24 22:00 12/08/24 21:09 17 MLS/HR Norepinephrine Bitartrate 250 ml @ 3.75 mls/hr Q24H IV 12/05/24 18:15 12/05/24 18:15 3.75 MLS/HR Calcium Acetate 1,334 mg TIDWMEALS PO 12/08/24 12:00 12/08/24 17:54 1,334 MG Tbo-Filgrastim 300 mcg DAILY SC 12/08/24 12:30 12/08/24 15:46 300 MCG objective Gen.: Patient lying in bed in no apparent distress. On supplemental oxygen. Head: Normocephalic, atraumatic. Eyes: EOMI/PERRLA. Ears: Normal hearing. Normal anatomy. Neck/trachea: Trachea midline, supple. Nose: Normal external anatomy. Mouth: Moist mucous membranes. Chest: Decreased air entry bilaterally. No wheezing or rhonchi. Cardiovascular: Positive S1, positive S2. Regular rate and rhythm. Abdomen: Positive bowel sounds in all 4 quadrants. Soft, non-tender, non- distended. : Deferred. Rectal: Deferred. Skin: Warm, dry. Intact. Extremities: 2+ radial pulses bilaterally. No lower extremity edema. Neuro: Awake, alert, oriented x3. No gross motor or sensory deficits. Cranial nerves II through XII intact. Gait not assessed. laboratory and microbiology Laboratory Tests 12/08/24 18:45 12/08/24 05:04 Test 12/08/24 05:04 Range/Units Serum Glucose 86 74-106 mg/dL Assessment/Plan Impression: Acute hypoxic respiratory failure Dependence on supplemental oxygen Possible urinary tract infection CAD, s/p 3-vessel CABG. Septic shock Cerebrovascular accident Left pleural effusion Atelectasis Events: Remains on supplemental oxygen, 2 LPM NC Taper O2 as tolerated CT head - positive CVA - plan for higher level of care. Brain MRI shows e/o multiple strokes; small area of restricted diffusion involving the anterior body/genu of corpus callosum c/w acute to subacute infarct. No acute hemorrhage or mass effect. Scattered punctate foci of restricted diffusion in the bilateral frontal and right parietal lobe deep white matter, which may represent tiny foci of acute to subacute infarcts. Carotid Doppler showed no stenosis. CXR today reviewed, shows Low lung volumes with bronchovascular crowding. Off pressors since 2199 on 12/05/24, hemodynamically stable. Monitor blood pressure Plan for hemodialysis catheter placement Head of bed elevation Aspiration precautions Continue antibiotics Incentive spirometry Epogen Protonix BID Monitor hemoglobin S/p left IJ Lamin cath placement. See separate procedure note for details. HD per Nephrology Monitor renal function Nephrology recommendations appreciated Accu-Cheks, ISS PRN. Labs and imaging reviewed. Rest of plan as noted below. Plan: Supplemental oxygen Titrate to keep O2 sats above 92%. Pressors if necessary for hemodynamic support Titrate to keep mean arterial pressure greater than 65 mmHg. Echocardiogram reviewed, notable for EF 50% Cardiology recs appreciated. Continue antibiotics Incentive spirometry Accu-Cheks, ISS PRN. Monitor renal function. Monitor electrolytes. Supplement as necessary. Hyperkalemia - received hyperkalemia cocktail on 12/05 Monitor ins and outs. Pond for strict ins and outs Plan for HLOC due to CVA. DVT prophylaxis. Prognosis: Poor given patient's multiple co-morbidities. Condition: Critical Rest of plan per hospitalist and other consultants. A total of 35 minutes of critical care time was spent reviewing the patient record, examining the patient, making a diagnostic and therapeutic plan, discussing this plan with the medical personnel, following up on diagnostic studies and following the patient for clinical stability excluding any and all procedures. At least 50% of this time was spent in direct, [id number] contact. Thank you, Dr. Smith, for allowing me to participate in this patient's care. Further recommendations will depend on the patient's clinical course. Please do not hesitate to contact me if you have any questions or concerns. This medical document was created using an electronic medical record system with [employer] dictation system. Although these documentations are being carefully reviewed, there may still be some phonetic and typographical changes. The errors are purely typographical, due to imperfection on the software program, and do not reflect any compromise in the patient's medical care. Dietary Evaluation Review Comments: 1) Ergocalciferol 50,000IU weekly 2) Jose L 1 pk daily, MVI w/ mineral 1 tab, Vit C 500mg BID, Zinc sulfate 220mg daily x 10 days 3) Advance to [id number] + renal special 80gm protein diet 4) Continue current plan of care Expected Outcomes/Goals: Advance diet to meet at least 75% estimated needs FU 2-3 days Plan discussed with: Other (RN) Critical Care Time(min): 35 CC Plasma Assessment Blood Product Administration S: [id number] JERAMY CAMARA MD Dec 08, 2024 22:43
[2024-12-09] VITALS (70 sets, daily range): BP systolic 89–153; BP diastolic 43–83; PULSE 57–96; RESP 10–22; TEMP 98.4–100.8; O2SAT 93–100
--- NOTE | 2024-12-09 00:05 | DVHPN2 ---
Consult Progress Note Subjective Other Systems: Patient was seen and evaluated in follow up in the ICU. No significant cardiac events. Patient is on 2 LPM NC. Patient recieved HD today. HGB 9.8, HCT 29.5, PT 12.4, INR 1.19, PTT 43. Chest x-ray showed low lung volumes with bronchovascular crowding. Objective vital signs Vital Sign Date Time Temp Pulse Resp B/P (MAP) Pulse Ox O2 Delivery O2 Flow Rate FiO2 12/08/24 20:00 97.7 75 15 118/76 (90) 100 97.7 12/08/24 18:00 Nasal Cannula* 2 28 Total Intake and Output 12/07/24 12/07/24 12/08/24 15:00 23:00 07:00 Intake Total 800 ml 150 ml 240 ml Output Total 375 ml 525 ml Balance 800 ml -225 ml -285 ml medications Current Medications Medications Dose Ordered Sig/Shavon Route Start Time Stop Time Status Last Admin Dose Admin Acetaminophen 650 mg Q6HP PRN PO 12/04/24 03:30 12/07/24 23:06 650 MG Ondansetron HCl 4 mg Q4HP PRN IV 12/04/24 03:30 Diagnostic Test (Pha) 1 strip ACHS 12/04/24 07:00 12/08/24 17:00 1 STRIP Vancomycin HCl 0 ml @ 0 mls/hr UD IV 12/04/24 06:45 Pantoprazole Sodium 40 mg BID IV 12/04/24 06:45 12/08/24 21:09 40 MG Acetaminophen/ Hydrocodone Bitart 1 tab Q4HPRN PRN PO 12/04/24 14:30 12/08/24 21:13 1 TAB Morphine Sulfate 1 mg Q4HPRN PRN IV 12/04/24 14:30 Tamsulosin HCl 0.4 mg QPM PO 12/04/24 18:00 12/08/24 17:55 0.4 MG Metoprolol Succinate 25 mg DAILY PO 12/05/24 10:00 12/08/24 10:35 25 MG Aspirin 81 mg DAILY PO 12/05/24 10:00 12/08/24 10:30 81 MG Clopidogrel Bisulfate 75 mg DAILY PO 12/05/24 10:00 12/08/24 10:28 75 MG Azithromycin 250 ml @ 125 mls/hr DAILY IV 12/05/24 15:00 12/08/24 10:00 125 MLS/HR Meropenem 50 ml @ 17 mls/hr Q12HR IV 12/05/24 22:00 12/08/24 21:09 17 MLS/HR Norepinephrine Bitartrate 250 ml @ 3.75 mls/hr Q24H IV 12/05/24 18:15 12/05/24 18:15 3.75 MLS/HR Calcium Acetate 1,334 mg TIDWMEALS PO 12/08/24 12:00 12/08/24 17:54 1,334 MG Tbo-Filgrastim 300 mcg DAILY SC 12/08/24 12:30 12/08/24 15:46 300 MCG Examination: GENERAL:Normal, HEENT:Normal, NECK:Normal, LUNGS:Normal, CVS:Normal, ABDOMEN:Normal, SKIN:Normal, NEURO:Normal laboratory and microbiology Laboratory Tests 12/08/24 18:45 12/08/24 05:04 Test 12/08/24 05:04 Range/Units Serum Glucose 86 74-106 mg/dL Problem List/Assessment/Plan Problem List/Assessment/Plan Acute CVA ruled out cardioembolic source. Sepsis secondary to pneumonia and urinary tract infection. Substernal soft tissue density likely secondary to recent CABG. Severe coronary artery disease status post triple-vessel CABG (on Plavix and aspirin). Chronic HFpEF, NYHA class III. Acute on chronic anemia, rule out GI bleed. GOPAL on CKD. Neutropenia. Hypertension. Hyperlipidemia. Hyperkalemia. Transaminitis. Type 2 diabetes mellitus. Obesity. Plan/Recommendation Continued all current supportive medical care. Patient has been seen by Alejandra Linda NP on my behalf, her and I discussed the plan with the patient. Status post EMILY with negative findings. Additional plan as per the hospital course. Plan discussed with: Patient Dietary Evaluation Review Comments: 1) Ergocalciferol 50,000IU weekly 2) Jose L 1 pk daily, MVI w/ mineral 1 tab, Vit C 500mg BID, Zinc sulfate 220mg daily x 10 days 3) Advance to [id number] + renal special 80gm protein diet 4) Continue current plan of care Expected Outcomes/Goals: Advance diet to meet at least 75% estimated needs FU 2-3 days CC Plasma Assessment Blood Product Administration S: [id number] Date of Service: Dec 08, 2024 Billing Provider: DELLA HENSLEY MD Cardiology Common Codes: [id number] INP/OBS CARE(Mod) DELLA HENSLEY MD Dec 08, 2024 21:58
[2024-12-09 05:44] LABS: Hemoglobin 7.7 g/dL (13.5-17.5); Red Blood Cells 2.75 10^6/uL (4.5-5.90); Red Cell Distribution Width 16.6 % (11.8-14.3)
[2024-12-09 05:50] LABS: Hematocrit 22.9 % (41.0-53.0); Mean Corpuscular Hgb Conc. 33.6 g/dL (32.0-36.0); Mean Corpuscular Volume 83.3 fL (80.0-100.0); Platelet Count (auto) 111 10^3/uL (140-450)
[2024-12-09 05:57] LABS: Alanine Aminotransferase 40 U/L (7-40); Anion Gap 13 (5-15); BUN/Creatinine Ratio 19.2 (10.0-20.0); Carbon Dioxide 21 mmol/L (20-31); Chloride 100 mmol/L (98-107); Potassium 4.2 mmol/L (3.5-5.1)
[2024-12-09 06:26] LABS: White Blood Cell 0.7 10^3/uL (4.4-10.8)
[2024-12-09 06:28] LABS: Basophils % (manual) 0 (0.0-2.0); Blast Cells 0; Metamyelocytes % 0; Myelocytes % 0; Promyelocytes % 0; Reactive Lymphocytes 0
[2024-12-09 06:42] LABS: Albumin 2.2 g/dL (3.2-4.8); Alkaline Phosphatase 668 U/L (46-116); Aspartate Aminotransferase 102 U/L (13-40); Bilirubin, Total 2.3 mg/dL (0.2-1.0); Blood Urea Nitrogen 77 mg/dL (9-23); Calcium 7.2 mg/dL (8.7-10.4); Glucose 63 mg/dL (74-106); Sodium 134 mmol/L (136-145); Total Protein 5.6 g/dL (5.7-8.2)
[2024-12-09 08:53] LABS: Band Neutrophils % (manual) 1; Eosinophils % (manual) 1 (0-7); Lymphocytes % (manual) 56 (10.0-50.0); Monocytes % (manual) 36 (0-12); Platelet Estimate Decreased
[2024-12-09] MEDS: ALBUMIN 25% 100 ML IV SCH (11:12)
--- NOTE | 2024-12-09 11:47 | DVHPN2 ---
Progress Note Date Seen: Dec 09, 2024 Has the PT tested + for MRSA If YES, has PT been informed?: No Medical Necessity Reason Pt with a Central, PICC or Fol: Yes The following are medically ne: Pond Catheter Reason for pond catheter: Bladder Retention/Obstruc, Strict I&O Subjective Patient reports: Feels worse Review of Systems: CVS:Abnormal, NEURO:Abnormal Objective vital signs Vital Sign Date Time Temp Pulse Resp B/P (MAP) Pulse Ox O2 Delivery O2 Flow Rate FiO2 12/09/24 10:32 95/51 12/09/24 09:30 80 12/09/24 08:35 98.5 98.5 12/09/24 08:00 12 98 12/09/24 06:00 Nasal Cannula* 2 28 Total Intake and Output 12/08/24 12/08/24 12/09/24 15:00 23:00 07:00 Intake Total 125 ml 400 ml 290 ml Output Total 250 ml 20 ml Balance 125 ml 150 ml 270 ml medications Current Medications Medications Dose Ordered Sig/Shavon Route Start Time Stop Time Status Last Admin Dose Admin Acetaminophen 650 mg Q6HP PRN PO 12/04/24 03:30 12/07/24 23:06 650 MG Ondansetron HCl 4 mg Q4HP PRN IV 12/04/24 03:30 Diagnostic Test (Pha) 1 strip ACHS 12/04/24 07:00 12/09/24 07:00 1 STRIP Vancomycin HCl 0 ml @ 0 mls/hr UD IV 12/04/24 06:45 Pantoprazole Sodium 40 mg BID IV 12/04/24 06:45 12/09/24 09:28 40 MG Acetaminophen/ Hydrocodone Bitart 1 tab Q4HPRN PRN PO 12/04/24 14:30 12/09/24 03:16 1 TAB Morphine Sulfate 1 mg Q4HPRN PRN IV 12/04/24 14:30 Tamsulosin HCl 0.4 mg QPM PO 12/04/24 18:00 12/08/24 17:55 0.4 MG Metoprolol Succinate 25 mg DAILY PO 12/05/24 10:00 Hold 12/09/24 09:30 25 MG Aspirin 81 mg DAILY PO 12/05/24 10:00 12/09/24 09:29 81 MG Clopidogrel Bisulfate 75 mg DAILY PO 12/05/24 10:00 12/09/24 09:28 75 MG Azithromycin 250 ml @ 125 mls/hr DAILY IV 12/05/24 15:00 12/09/24 09:28 125 MLS/HR Meropenem 50 ml @ 17 mls/hr Q12HR IV 12/05/24 22:00 12/09/24 09:27 17 MLS/HR Norepinephrine Bitartrate 250 ml @ 3.75 mls/hr Q24H IV 12/05/24 18:15 12/09/24 10:32 3.75 MLS/HR Calcium Acetate 1,334 mg TIDWMEALS PO 12/08/24 12:00 12/09/24 09:27 1,334 MG Tbo-Filgrastim 300 mcg DAILY SC 12/08/24 12:30 12/09/24 09:38 300 MCG Albumin Human 100 ml @ 100 mls/hr BETTYE IV 12/09/24 10:30 12/09/24 11:12 100 MLS/HR Examination: GENERAL:Abnormal, CVS:Abnormal, NEURO:Abnormal laboratory and microbiology Laboratory Tests 12/09/24 05:08 Test 12/09/24 05:08 Range/Units Serum Glucose 63 L 74-106 mg/dL Microbiology Date/Time Source Procedure Growth Status 12/05/24 21:09 Nose MRSA Screen - Final Complete 12/05/24 12:11 Blood Blood Culture - Preliminary NO GROWTH AFTER 72 HOURS OF INCUBATION. 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 Acute TIA (12/05/24) due to hypotension --GOPAL hemodyanmic requiring HD , first treatment 12/08 s/p EMILY unremarkable IV diuretic HD today, UF goal reduced due to hypotension, albumin and levophed given during HD today daily assessment for next Hd treatment probable tuesday Continue Flomax IV antibiotics Retroperitoneal lymphadenopathy noted to end decreased WBC workup as per primary medical team Plan discussed with: Patient My Orders My Orders Orders - PRABHU ERNANDEZ MD Procedure Category Date Status Time Hemodialysis Orders ORDERS 12/09/24 Transmitted 10:08 Albumin 25% (Albutein) PHA 12/09/24 In Process 10:30 Dietary Evaluation Review Comments: 1) Ergocalciferol 50,000IU weekly 2) Jose L 1 pk daily, MVI w/ mineral 1 tab, Vit C 500mg BID, Zinc sulfate 220mg daily x 10 days 3) Advance to [id number] + renal special 80gm protein diet 4) Continue current plan of care Expected Outcomes/Goals: Advance diet to meet at least 75% estimated needs FU 2-3 days CC Plasma Assessment Blood Product Administration S: 11:05 PRABHU ERNANDEZ MD Dec 09, 2024 11:47
[2024-12-09] MEDS: VANCOMYCIN 500mg/100mL 100 ML IV ONE (13:29)
[2024-12-09] MEDS: SODIUM CHL 0.9% 1000 ML BAG XX ONE (13:37)
--- NOTE | 2024-12-09 13:54 | DVHPN2 ---
Subjective Feels better Reviewed: Care Plan, H&P, Labs, Medications, Previous Orders, Radiology, Other (Consultants) Changes from previous H/P or p: No Changes Objective Vitals Vital Signs Date Time Temp Pulse Resp B/P (MAP) Pulse Ox O2 Delivery O2 Flow Rate FiO2 12/09/24 13:00 153/83 12/09/24 12:00 99.5 76 15 99 99.5 12/09/24 06:00 Nasal Cannula* 2 28 Intake/Output Intake and Output 12/09/24 06:59 Intake Total 815 ml Output Total 270 ml Balance 545 ml Intake Oral 640 ml IV Total 175 ml Output Urine Total 270 ml # Bowel Movements 3 General Appearance: Alert, Oriented X3, Cooperative, No acute distress HEENT: Atraumatic Lungs: Clear to auscultation Cardiovascular: Regular rate Abdomen: Soft, No tenderness Extremities: Other (Minimal bilateral lower extremity edema) Neuro: Other (Weakness in the left upper and left lower extremity) Medications Current Medications Medications Dose Ordered Sig/Shavon Route Start Time Stop Time Status Last Admin Dose Admin Acetaminophen 650 mg Q6HP PRN PO 12/04/24 03:30 12/07/24 23:06 650 MG Ondansetron HCl 4 mg Q4HP PRN IV 12/04/24 03:30 Diagnostic Test (Pha) 1 strip ACHS 12/04/24 07:00 12/09/24 11:30 1 STRIP Vancomycin HCl 0 ml @ 0 mls/hr UD IV 12/04/24 06:45 Pantoprazole Sodium 40 mg BID IV 12/04/24 06:45 12/09/24 09:28 40 MG Acetaminophen/ Hydrocodone Bitart 1 tab Q4HPRN PRN PO 12/04/24 14:30 12/09/24 03:16 1 TAB Morphine Sulfate 1 mg Q4HPRN PRN IV 12/04/24 14:30 Tamsulosin HCl 0.4 mg QPM PO 12/04/24 18:00 12/08/24 17:55 0.4 MG Metoprolol Succinate 25 mg DAILY PO 12/05/24 10:00 Hold 12/09/24 09:30 25 MG Aspirin 81 mg DAILY PO 12/05/24 10:00 12/09/24 09:29 81 MG Clopidogrel Bisulfate 75 mg DAILY PO 12/05/24 10:00 12/09/24 09:28 75 MG Azithromycin 250 ml @ 125 mls/hr DAILY IV 12/05/24 15:00 12/09/24 09:28 125 MLS/HR Meropenem 50 ml @ 17 mls/hr Q12HR IV 12/05/24 22:00 12/09/24 09:27 17 MLS/HR Norepinephrine Bitartrate 250 ml @ 3.75 mls/hr Q24H IV 12/05/24 18:15 12/09/24 10:32 3.75 MLS/HR Calcium Acetate 1,334 mg TIDWMEALS PO 12/08/24 12:00 12/09/24 13:29 1,334 MG Tbo-Filgrastim 300 mcg DAILY SC 12/08/24 12:30 12/09/24 09:38 300 MCG Albumin Human 100 ml @ 100 mls/hr BETTYE IV 12/09/24 10:30 12/09/24 12:11 100 MLS/HR Laboratory Results Laboratory Tests 12/09/24 05:08 Chemistry Test 12/09/24 05:08 Albumin 2.2 g/dL (3.2-4.8) L Calcium Level 7.2 mg/dL (8.7-10.4) L Total Protein 5.6 g/dL (5.7-8.2) L LFT Test 12/09/24 05:08 Alanine Aminotransferase (ALT) 40 U/L (7-40) Alkaline Phosphatase 668 U/L (46-116) H Aspartate Amino Transferase (AST) 102 U/L (13-40) H Total Bilirubin 2.3 mg/dL (0.2-1.0) H Urinalysis Test 12/04/24 16:50 12/08/24 18:30 Urine Amorphous Crystals Few /hpf (None Seen) Urine Creatinine 70.59 mg/dL (30.0-125.0) Urine Protein/Creatinine Ratio 1.84 Urine Sodium 23 mmol/L (40-220) L Urine Total Protein 129.7 mg/dL (1-14) H Urine Color Yellow (Yellow) Urine Clarity Turbid (Clear) H Urine pH 5.0 (5.0-9.0) Urine Specific [place] 1.014 (1.001-1.035) Urine Protein 1+ (Negative) H Urine Ketones Negative (Negative) Urine Blood 3+ /uL (Negative) H Urine Nitrite Negative (Negative) Urine Bilirubin Negative (Negative) Urine Urobilinogen Normal mg/dL (Negative) Urine Leukocyte Esterase Negative /uL (Negative) Urine RBC 252 /hpf (0 - 3) Urine Microscopic WBC 6 /HPF (0-3) H Urine Squamous Epithelial Cells None seen /hpf (<5) Urine Bacteria None seen /hpf (None Seen) Urine Glucose Normal mg/dL (Normal) Microbiology Microbiology Date/Time Source Procedure Growth Status 12/05/24 21:09 Nose MRSA Screen - Final Complete 12/05/24 12:11 Blood Blood Culture - Preliminary NO GROWTH AFTER 72 HOURS OF INCUBATION. Resulted 12/04/24 16:50 Voided Urine Urine Culture - Final Complete Assessment/Plan Assessment/Plan Drop in H&H Respiratory failure Sepsis and septic shock UTI /pneumonia CVA and altered mental status Acute kidney injury atop chronic kidney disease Pancytopenia End-stage renal disease on hemodialysis Coronary artery disease status post CABG in November 01, 2024 Hypertension Dyslipidemia Plan: Hold Plavix and aspirin today. Check H&H. Resume aspirin Plavix tomorrow if hemoglobin is stable. Continue Protonix. Further plans per orders. Total critical care time 40 minutes. Addendum apparently the aspirin and Plavix were already given today Plan discussed with: Patient, Other (Nursing) My Orders Orders - ASHLEY MILLS MD Procedure Category Date Status Time Hemoglobin & LAB 12/09/24 Logged Hematocrit 13:47 Hemoglobin & LAB 12/09/24 Logged Hematocrit 19:47 Hemoglobin & LAB 12/10/24 Verified Hematocrit 01:47 Complete Blood Count LAB 12/10/24 Verified 06:00 Comprehensive LAB 12/10/24 Verified Metabolic Panel 06:00 Date of Service: Dec 09, 2024 Billing Provider: ASHLEY MILLS MD Common Visit Codes: [id number] CARE 30-74 MIN ASHLEY MILLS MD Dec 09, 2024 13:54
[2024-12-09 14:33] LABS: Hematocrit 27.6 % (41.0-53.0)
[2024-12-09 20:38] LABS: Hematocrit 25.3 % (41.0-53.0); Hemoglobin 8.4 g/dL (13.5-17.5)
--- NOTE | 2024-12-09 21:06 | DVHPN2 ---
Progress Note - Dictate Date Seen: Dec 09, 2024 Has the PT tested + for MRSA If YES, has PT been informed?: No Medical Necessity Reason Pt with a Central, PICC or Fol: Yes The following are medically ne: Pond Catheter Reason for pond catheter: Bladder Retention/Obstruc, Strict I&O Subjective Patient seen and examined at bedside. Remains on supplemental oxygen Overnight events reviewed. vital signs Vital Sign Date Time Temp Pulse Resp B/P (MAP) Pulse Ox O2 Delivery O2 Flow Rate FiO2 12/09/24 21:00 100.0 77 15 113/61 (78) 99 100.0 12/09/24 18:00 Nasal Cannula* 2 28 Total Intake and Output 12/08/24 12/08/24 12/09/24 15:00 23:00 07:00 Intake Total 125 ml 400 ml 290 ml Output Total 250 ml 20 ml Balance 125 ml 150 ml 270 ml medications Current Medications Medications Dose Ordered Sig/Shavon Route Start Time Stop Time Status Last Admin Dose Admin Acetaminophen 650 mg Q6HP PRN PO 12/04/24 03:30 12/09/24 19:53 650 MG Ondansetron HCl 4 mg Q4HP PRN IV 12/04/24 03:30 Diagnostic Test (Pha) 1 strip ACHS 12/04/24 07:00 12/09/24 17:00 1 STRIP Vancomycin HCl 0 ml @ 0 mls/hr UD IV 12/04/24 06:45 Pantoprazole Sodium 40 mg BID IV 12/04/24 06:45 12/09/24 09:28 40 MG Acetaminophen/ Hydrocodone Bitart 1 tab Q4HPRN PRN PO 12/04/24 14:30 12/09/24 03:16 1 TAB Morphine Sulfate 1 mg Q4HPRN PRN IV 12/04/24 14:30 Tamsulosin HCl 0.4 mg QPM PO 12/04/24 18:00 12/09/24 18:34 0.4 MG Metoprolol Succinate 25 mg DAILY PO 12/05/24 10:00 Hold 12/09/24 09:30 25 MG Azithromycin 250 ml @ 125 mls/hr DAILY IV 12/05/24 15:00 12/09/24 09:28 125 MLS/HR Meropenem 50 ml @ 17 mls/hr Q12HR IV 12/05/24 22:00 12/09/24 09:27 17 MLS/HR Norepinephrine Bitartrate 250 ml @ 3.75 mls/hr Q24H IV 12/05/24 18:15 12/09/24 10:32 3.75 MLS/HR Calcium Acetate 1,334 mg TIDWMEALS PO 12/08/24 12:00 12/09/24 18:34 1,334 MG Tbo-Filgrastim 300 mcg DAILY SC 12/08/24 12:30 12/09/24 09:38 300 MCG Albumin Human 100 ml @ 100 mls/hr BETTYE IV 12/09/24 10:30 12/09/24 12:11 100 MLS/HR objective Gen.: Patient lying in bed in no apparent distress. On supplemental oxygen. Head: Normocephalic, atraumatic. Eyes: EOMI/PERRLA. Ears: Normal hearing. Normal anatomy. Neck/trachea: Trachea midline, supple. Nose: Normal external anatomy. Mouth: Moist mucous membranes. Chest: Decreased air entry bilaterally. No wheezing or rhonchi. Cardiovascular: Positive S1, positive S2. Regular rate and rhythm. Abdomen: Positive bowel sounds in all 4 quadrants. Soft, non-tender, non- distended. : Deferred. Rectal: Deferred. Skin: Warm, dry. Intact. Extremities: 2+ radial pulses bilaterally. No lower extremity edema. Neuro: Awake, alert, oriented x3. No gross motor or sensory deficits. Cranial nerves II through XII intact. Gait not assessed. laboratory and microbiology Laboratory Tests 12/09/24 20:04 12/09/24 05:08 Test 12/09/24 05:08 Range/Units Serum Glucose 63 L 74-106 mg/dL Assessment/Plan Impression: Acute hypoxic respiratory failure Dependence on supplemental oxygen Possible urinary tract infection CAD, s/p 3-vessel CABG. Septic shock Cerebrovascular accident Left pleural effusion Atelectasis Events: Remains on supplemental oxygen, 2 LPM NC Taper O2 as tolerated Hemodialysis today Albumin x2 Off Levophed this PM - requires Levophed during dialysis CT head - positive CVA - plan for higher level of care. Brain MRI showed e/o multiple strokes; small area of restricted diffusion involving the anterior body/genu of corpus callosum c/w acute to subacute infarct. No acute hemorrhage or mass effect. Scattered punctate foci of restricted diffusion in the bilateral frontal and right parietal lobe deep white matter, which may represent tiny foci of acute to subacute infarcts. Carotid Doppler showed no stenosis. Pressors as necessary to maintain a mean arterial blood pressure greater than 65 mmHg. Monitor blood pressure Head of bed elevation Aspiration precautions Continue antibiotics Incentive spirometry Protonix BID Monitor hemoglobin S/p left IJ Lamin cath placement. See separate procedure note for details. HD per Nephrology Monitor renal function Nephrology recommendations appreciated Labs and imaging reviewed. Rest of plan as noted below. Plan: Supplemental oxygen Titrate to keep O2 sats above 92%. Pressors as necessary for hemodynamic support Titrate to keep mean arterial pressure greater than 65 mmHg. Echocardiogram reviewed, notable for EF 50% Cardiology recs appreciated. Continue antibiotics Incentive spirometry Accu-Cheks, ISS PRN. Monitor renal function. Monitor electrolytes. Supplement as necessary. Hyperkalemia - K at goal Monitor ins and outs. Pond for strict ins and outs Plan for HLOC due to CVA. DVT prophylaxis. Prognosis: Poor given patient's multiple co-morbidities. Condition: Critical Rest of plan per hospitalist and other consultants. A total of 35 minutes of critical care time was spent reviewing the patient record, examining the patient, making a diagnostic and therapeutic plan, discussing this plan with the medical personnel, following up on diagnostic studies and following the patient for clinical stability excluding any and all procedures. At least 50% of this time was spent in direct, [id number] contact. Thank you, Dr. Smith, for allowing me to participate in this patient's care. Further recommendations will depend on the patient's clinical course. Please do not hesitate to contact me if you have any questions or concerns. This medical document was created using an electronic medical record system with [employer] dictation system. Although these documentations are being carefully reviewed, there may still be some phonetic and typographical changes. The errors are purely typographical, due to imperfection on the software program, and do not reflect any compromise in the patient's medical care. Dietary Evaluation Review Comments: 1) Ergocalciferol 50,000IU weekly 2) Jose L 1 pk daily, MVI w/ mineral 1 tab, Vit C 500mg BID, Zinc sulfate 220mg daily x 10 days 3) Advance to [id number] + renal special 80gm protein diet 4) Continue current plan of care Expected Outcomes/Goals: Advance diet to meet at least 75% estimated needs FU 2-3 days Plan discussed with: Other (VIJAY Farias) Critical Care Time(min): 35 CC Plasma Assessment Blood Product Administration S: 11:05 JERAMY CAMARA MD Dec 09, 2024 21:06
[2024-12-10] VITALS (43 sets, daily range): BP systolic 92–134; BP diastolic 45–73; PULSE 71–91; RESP 10–24; TEMP 97–100.8; O2SAT 91–100
--- NOTE | 2024-12-10 00:22 | DVHPN2 ---
Progress Note - Dictate Date Seen: Dec 09, 2024 Has the PT tested + for MRSA If YES, has PT been informed?: No Medical Necessity Reason Pt with a Central, PICC or Fol: Yes The following are medically ne: Pond Catheter Reason for pond catheter: Bladder Retention/Obstruc, Strict I&O Subjective Patient was seen and evaluated in follow up in the ICU. Patient is on 2 LPM NC. Patient states he feels worse today. HGB 8.4, HCT 25.3, BUN 77, CREDIT RISK ANALYST 4.01, AST 102. vital signs Vital Sign Date Time Temp Pulse Resp B/P (MAP) Pulse Ox O2 Delivery O2 Flow Rate FiO2 12/09/24 21:00 100.0 77 15 113/61 (78) 99 100.0 12/09/24 18:00 Nasal Cannula* 2 28 Total Intake and Output 12/08/24 12/08/24 12/09/24 15:00 23:00 07:00 Intake Total 125 ml 400 ml 290 ml Output Total 250 ml 20 ml Balance 125 ml 150 ml 270 ml medications Current Medications Medications Dose Ordered Sig/Shavon Route Start Time Stop Time Status Last Admin Dose Admin Acetaminophen 650 mg Q6HP PRN PO 12/04/24 03:30 12/09/24 19:53 650 MG Ondansetron HCl 4 mg Q4HP PRN IV 12/04/24 03:30 Diagnostic Test (Pha) 1 strip ACHS 12/04/24 07:00 12/09/24 17:00 1 STRIP Vancomycin HCl 0 ml @ 0 mls/hr UD IV 12/04/24 06:45 Pantoprazole Sodium 40 mg BID IV 12/04/24 06:45 12/09/24 09:28 40 MG Acetaminophen/ Hydrocodone Bitart 1 tab Q4HPRN PRN PO 12/04/24 14:30 12/09/24 03:16 1 TAB Morphine Sulfate 1 mg Q4HPRN PRN IV 12/04/24 14:30 Tamsulosin HCl 0.4 mg QPM PO 12/04/24 18:00 12/09/24 18:34 0.4 MG Metoprolol Succinate 25 mg DAILY PO 12/05/24 10:00 Hold 12/09/24 09:30 25 MG Azithromycin 250 ml @ 125 mls/hr DAILY IV 12/05/24 15:00 12/09/24 09:28 125 MLS/HR Meropenem 50 ml @ 17 mls/hr Q12HR IV 12/05/24 22:00 12/09/24 09:27 17 MLS/HR Norepinephrine Bitartrate 250 ml @ 3.75 mls/hr Q24H IV 12/05/24 18:15 12/09/24 10:32 3.75 MLS/HR Calcium Acetate 1,334 mg TIDWMEALS PO 12/08/24 12:00 12/09/24 18:34 1,334 MG Tbo-Filgrastim 300 mcg DAILY SC 12/08/24 12:30 12/09/24 09:38 300 MCG Albumin Human 100 ml @ 100 mls/hr BETTYE IV 12/09/24 10:30 12/09/24 12:11 100 MLS/HR objective GENERAL: Awake, alert, oriented. LUNGS: Clear. CARDIOVASCULAR: Heart sounds are good. ABDOMEN: Soft. laboratory and microbiology Laboratory Tests 12/09/24 20:04 12/09/24 05:08 Test 12/09/24 05:08 Range/Units Serum Glucose 63 L 74-106 mg/dL Problem List Acute CVA ruled out cardioembolic source. Sepsis secondary to pneumonia and urinary tract infection. Substernal soft tissue density likely secondary to recent CABG. Severe coronary artery disease status post triple-vessel CABG (on Plavix and aspirin). Chronic HFpEF, NYHA class III. Acute on chronic anemia, rule out GI bleed. GOPAL on CKD. Neutropenia. Hypertension. Hyperlipidemia. Hyperkalemia. Transaminitis. Type 2 diabetes mellitus. Obesity. Assessment/Plan Continued all current supportive medical care. Morphine and [place] for pain management. IV antibiotics as ordered. Vasopressors for hemodynamic support. GI prophylactics. Additional plan as per the hospital course. Critical care time of 45 minutes provided to include time spent evaluation of patient at bedside, when appropriate patient/family education for diagnosis, treatment plan, review of pertinent medical information and discussion of care with specialty providers and PCP. Dietary Evaluation Review Comments: 1) Ergocalciferol 50,000IU weekly 2) Jose L 1 pk daily, MVI w/ mineral 1 tab, Vit C 500mg BID, Zinc sulfate 220mg daily x 10 days 3) Advance to [id number] + renal special 80gm protein diet 4) Continue current plan of care Expected Outcomes/Goals: Advance diet to meet at least 75% estimated needs FU 2-3 days Plan discussed with: Patient CC Plasma Assessment Blood Product Administration S: 11:05 DELLA HENSLEY MD Dec 09, 2024 21:08
[2024-12-10 02:11] LABS: Hematocrit 24.6 % (41.0-53.0); Hemoglobin 8.2 g/dL (13.5-17.5)
[2024-12-10 05:22] LABS: Basophils # (auto) 0 10 ^3/uL (0-0.2); Eosinophils # (auto) 0 10 ^3/uL (0-0.8); Hematocrit 24.8 % (41.0-53.0); Hemoglobin 8.4 g/dL (13.5-17.5); Monocytes # (auto) 0.4 10 ^3/uL (0-1.3); Neutrophils # (auto) 0 10 ^3/uL (1.6-8.6)
[2024-12-10 05:25] LABS: Eosinophils % (auto) 1.1 % (0.0-7.0); Lymphocytes # (auto) 0.3 10 ^3/uL (0.4-5.4); Lymphocytes % (auto) 38.8 % (10.0-50.0); Mean Corpuscular Hgb Conc. 33.7 g/dL (32.0-36.0); Mean Corpuscular Volume 82.9 fL (80.0-100.0); Monocytes % (auto) 59.5 % (0.0-12.0); Neutrophils % (auto) 0.6 % (37.0-80.0); Nucleated Red Blood Cells % 0.4 %; Platelet Count (auto) 91 10^3/uL (140-450); Red Blood Cells 2.99 10^6/uL (4.5-5.90); Red Cell Distribution Width 17.5 % (11.8-14.3)
[2024-12-10 05:31] LABS: White Blood Cell 0.7 10^3/uL (4.4-10.8)
[2024-12-10 05:37] LABS: Alanine Aminotransferase 36 U/L (7-40); Anion Gap 9 (5-15); BUN/Creatinine Ratio 15.2 (10.0-20.0); Carbon Dioxide 26 mmol/L (20-31); Chloride 100 mmol/L (98-107); Glucose 76 mg/dL (74-106); Potassium 4.1 mmol/L (3.5-5.1)
[2024-12-10 05:42] LABS: Albumin 2.6 g/dL (3.2-4.8); Alkaline Phosphatase 616 U/L (46-116); Aspartate Aminotransferase 88 U/L (13-40); Bilirubin, Total 3.5 mg/dL (0.2-1.0); Blood Urea Nitrogen 55 mg/dL (9-23); Calcium 7.9 mg/dL (8.7-10.4); Sodium 135 mmol/L (136-145); Total Protein 5.6 g/dL (5.7-8.2)
[2024-12-10 06:46] LABS: Platelet Estimate Decreased
[2024-12-10 09:17] LABS: INR 1.28 (0.9-1.15); Partial Thromboplastin Time 45.6 SEC (24.5-34.5); Prothrombin Time 13.2 sec (9.3-11.8)
--- NOTE | 2024-12-10 10:04 | DVHPN2 ---
Progress Note - Dictate Date Seen: Dec 10, 2024 Has the PT tested + for MRSA If YES, has PT been informed?: No Medical Necessity Reason Pt with a Central, PICC or Fol: Yes The following are medically ne: Pond Catheter Reason for pond catheter: Bladder Retention/Obstruc, Strict I&O Subjective Mr. Narciso White is a 59 years old right-handed gentleman with a history of hypertension, diabetes, dyslipidemia, coronary artery disease, heart attack, recent CABG, he was taken to the [facility] on 12/03[facility]2024 with a chief company of fever. But he was also developed acute stroke syndrome I have seen and examined the patient, discussed with his nurse, he was looks weak today, awake, oriented x3, He reports chronic tingling, numbness and burning pain in the left lower extremity, recently he was has similar but less intense problems in the right lower extremity, the symptoms are worse in the evening with the urge to move, and the legs move them self, the symptom also cause insomnia. He has not seen a doctor for this problem yet WBC is 0.7 today UDS, 12/04/2024: Negative Urinalysis, 12/04/2024: WBC: 1, urine leukocyte esterase: Negative WBC/HB/PLT/MCV, 12/06/2024: 0.6/7.8/147/84.5 12/07/2024: 0.8/8.2/141/it was 102 PTT/INR/PTT, 12/05/2024: 12.4/1.19/37.2 BUN/CR, 12/06/2024: 82/3.64 HGB A1c, 12/04/2024: 5.9 TBI/AST/ALT/AP, 12/06/2024: 1.5/68/37/454 TG/HDL/LDL/HDL, 12/06/2024: 138/79/20/11, 12/07/2024: 141/77/20/9 Vitamin B12, 11/2004: 1395 TSH, 11/2024: 0.7 SIFE, 12/06/2024: Carotid Doppler, 12/07/2024: No hemodynamically significant stenosis within the carotid arteries Echocardiogram, 12/05/2024: Sinus rhythm. Left atrial enlargement with dilation of the sinuses of Valsalva. Mild RV enlargement. Moderate aortic sclerosis with diminished excursion of the leaflets and calcification of what appears to be the right and non coronary cusps. From the short axis view there does not appear to be limitation in motion. Normal pulmonic valve. Left ventricular function appears preserved. EF of about 50% with normal RV function. The tricuspid is normal. Doppler reveals some mild to moderate TR. No pericardial effusion masses or vegetations EMILY, 12/07/2024: Normal chamber dimensions. Valves appear to be structurally normal. Normal aortic mitral tricuspid and pulmonic valves Left ventricular function was preserved at 60% with normal RV function. Doppler reveals mild tricuspid insufficiency. Mild mitral insufficiency. No pericardial effusion masses or vegetations noted. The atrial appendage is normal. There are no thrombi present. Bubble study did not reveal crossover into the left side. Abnormal shunting otherwise present. MRI brain, 12/06/2024: 1. There is a small area of restricted diffusion involving the anterior body / genu of the corpus callosum consistent with an acute to subacute infarct. There is no evidence of acute hemorrhage. There is no mass effect. 2. There are additional scattered punctate foci of restricted diffusion in the bilateral frontal and right parietal lobe deep white matter which may represent tiny foci of acute to subacute infarcts vital signs Vital Sign Date Time Temp Pulse Resp B/P (MAP) Pulse Ox O2 Delivery O2 Flow Rate FiO2 12/10/24 08:00 13 97 Nasal Cannula* 2 28 12/10/24 06:00 81 12/10/24 06:00 129/73 (91) 12/10/24 04:00 98.9 98.9 Total Intake and Output 12/09/24 12/09/24 12/10/24 15:00 23:00 07:00 Intake Total 132.50 ml 720 ml 250 ml Output Total 60 ml 100 ml Balance 132.50 ml 660 ml 150 ml medications Current Medications Medications Dose Ordered Sig/Shavon Route Start Time Stop Time Status Last Admin Dose Admin Acetaminophen 650 mg Q6HP PRN PO 12/04/24 03:30 12/09/24 19:53 650 MG Ondansetron HCl 4 mg Q4HP PRN IV 12/04/24 03:30 Diagnostic Test (Pha) 1 strip ACHS 12/04/24 07:00 12/10/24 07:30 1 STRIP Vancomycin HCl 0 ml @ 0 mls/hr UD IV 12/04/24 06:45 Pantoprazole Sodium 40 mg BID IV 12/04/24 06:45 12/09/24 22:30 40 MG Acetaminophen/ Hydrocodone Bitart 1 tab Q4HPRN PRN PO 12/04/24 14:30 12/09/24 03:16 1 TAB Morphine Sulfate 1 mg Q4HPRN PRN IV 12/04/24 14:30 Tamsulosin HCl 0.4 mg QPM PO 12/04/24 18:00 12/09/24 18:34 0.4 MG Metoprolol Succinate 25 mg DAILY PO 12/05/24 10:00 Hold 12/09/24 09:30 25 MG Azithromycin 250 ml @ 125 mls/hr DAILY IV 12/05/24 15:00 12/09/24 09:28 125 MLS/HR Meropenem 50 ml @ 17 mls/hr Q12HR IV 12/05/24 22:00 12/09/24 22:30 17 MLS/HR Norepinephrine Bitartrate 250 ml @ 3.75 mls/hr Q24H IV 12/05/24 18:15 12/09/24 10:32 3.75 MLS/HR Calcium Acetate 1,334 mg TIDWMEALS PO 12/08/24 12:00 12/10/24 08:53 1,334 MG Tbo-Filgrastim 300 mcg DAILY SC 12/08/24 12:30 12/09/24 09:38 300 MCG Albumin Human 100 ml @ 100 mls/hr BETTYE IV 12/09/24 10:30 12/09/24 12:11 100 MLS/HR Micafungin Sodium 100 mg/Sodium Chloride 100 ml @ 100 mls/hr DAILY IV 12/10/24 10:00 objective General: the patient is well developed and nourished. No acute distress. MENTAL STATUS: Subjective SPEECH, LANGUAGE, HIGHER CORTICAL FUNCTION: no aphasia or dysathria. CRANIAL NERVES: Pupils are equal, round and reactive. EOMs full and conjugate. No nystagmus. Facial sensation intact in all three divisions bilaterally. Mandibular strength intact. Facial muscles symmetrical and strength intact. SENSATION: Sensation to touch and pinprick is diminished distally in the lower extremities, but no [id number] differences MOTOR: Normal tone in the upper and lower extremity. Normal muscle bulk. No fasciculations. No abnormal movements or posturing. Muscle strength of the major groups in the upper extremities is: close to 4/5. He can move both legs, muscle power feels 3-4/5. REFLEXES: Deep tendon reflexes are symmetrical. No pathological reflexes. CEREBELLAR/COORDINATION: No ataxia in the upper extremities GAIT/STATION: deferred. laboratory and microbiology Laboratory Tests 12/10/24 05:00 Test 12/10/24 05:00 Range/Units Serum Glucose 76 74-106 mg/dL Problem List Recent acute stroke with left-sided weakness Acute stroke syndrome MRI evident multiple strokes (11/08/2024) Pancytopenia Anemia Fever/sepsis Septic shock Coronary artery disease with recent CABG Diabetic polyneuropathy Restless leg syndrome Anemia Assessment/Plan Monitoring Supportive treatment Follow-up lipid profile LINDA Care Iron profile, ferritin Bone marrow biopsy IV antibiotics Lipitor profile Aspirin 81 mg daily Lipitor 75 mg daily A trial of gabapentin 200 mg in the evening Physical therapist GI prophylaxis Up to chair He was aware of neuropathy related foot care More recommendation per clinical course This medical document was created using an electronic medical record system with [employer] dictation system. Although this document has been carefully reviewed, there may still be some phonetic and typographical errors. These areas are purely typographical due to imperfections of the software programs, and do not reflect any compromise in the patient's medical care. Dietary Evaluation Review Comments: 1) Ergocalciferol 50,000IU weekly 2) Jose L 1 pk daily, MVI w/ mineral 1 tab, Vit C 500mg BID, Zinc sulfate 220mg daily x 10 days 3) Advance to [id number] + renal special 80gm protein diet 4) Continue current plan of care Expected Outcomes/Goals: Advance diet to meet at least 75% estimated needs FU 2-3 days Plan discussed with: Patient, Other CC Plasma Assessment Blood Product Administration S: 11:05 NIKOLAS PRATT MD Dec 10, 2024 10:04
[2024-12-10 10:27] LABS: % Iron Saturation 27.6 % (20-55)
[2024-12-10 10:28] LABS: Hepatitis B Surface Antigen Negative (Negative)
--- NOTE | 2024-12-10 10:33 | DVHPNRES ---
Progress Note Date Seen: Dec 10, 2024 Resident Creating Document: KAMILLE VÁSQUEZ RESIDENT Has the PT tested + for MRSA If YES, has PT been informed?: No Medical Necessity Reason Pt with a Central, PICC or Fol: Yes The following are medically ne: Pond Catheter Reason for pond catheter: Bladder Retention/Obstruc, Strict I&O Subjective Review of Systems Mr. Vu is a 59-year-old mg past medical history of coronary artery disease status post CABG 10/2024, bilateral cerebral white matter October 2024, status post bed bound and chronic indwelling Pond, hypertension hyperlipidemia who was brought to the ER by the family with a chief complaint of heavy breathing, fever, chills and anuria for the past 3 days. 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 Patient also reported dysuria and abdominal discomfort. He also reports heavy breathing and mild nonproductive cough. Per daughter, patient has a wound in his back and is also draining white pus- like substance. On arrival, patient was febrile at 101.2 F, tachycardic, blood pressure 144/77 and requiring 4 L oxygen supplementation. White cell was 3.6, hemoglobin 8.8 and hematocrit 23. Patient had hyperkalemia, potassium was 6 which downtrended to 5.4. Creatinine 2.9 and BUN 77. Patient's Pond catheter was removed given a dose placed more than a month, the patient does not urinate on his own, bladder scan showed empty bladder, nephrology was consulted. Chest x-ray shows bibasilar consolidation. The patient was started on IV vancomycin and IV cefepime along with IV fluids. Has mildly elevated transaminitis. Past medical/surgical history: See above Home medication: Atorvastatin, clopidogrel, lisinopril, metoprolol 25 daily Patient seen and examined at bedside. Cardiology consulted given CT findings of substernal soft tissue density: new echo ordered, patient is having GOPAL due to sepsis and urinary obstruction, Pond catheter placed back, cefepime was changed to meropenem, azithromycin was added to cover atypicals and hyperkalemia protocol was done, new K at noon normal, patient is having febrile neutropenia, CT scan of abdomen showed right groin lymphadenopathy concerning of lymphoma, hematology is consulted: leukopenia work up and lymphadenopathy biopsy 12/06/24 at 5: 30 pm, patient had an episode of AMS, weakness and hypotension, increased L leg weakness and L facial droop. Code stroke activated, neurology consult stated recrudescence of previous stroke due to hypotension, patient not candidate for thrombolysis, CT scan no acute stroke or hemorrhage, patient was placed on Levophed and wean off at 8 pm, fluids IV 100 cc during the night, today x ray showed mild congestion IV fluids reduced to 60cc and furosemide IV was started. New MRI showed multiple small stroke in different places: probably cardioembolic etiology. Neurology Dr Cabral, stated no need of CTA or thrombectomy, also transfer to [facility] was planning but according to the center he had his CABG, [facility]. Also, lymphadenopathy biopsy was done. 1RBC was transfused per cardiology 12/07/24: EMILY was ordered and will be done today. Worsening renal function; nephrology will discuss possible hemodialysis with the patient and his family 12/08/24: EMILY negative, neupogen started, patient had fevers last nigh, new pancultures, renal function is trending high, dialysis cath on place, possible HD today 12/10/25: stop plavix, patient continues to have fevers, micafungin started, cultures prelim negative, lymph node biopsy inconclusive, pending bone marrow biopsy Objective vital signs Vital Sign Date Time Temp Pulse Resp B/P (MAP) Pulse Ox O2 Delivery O2 Flow Rate FiO2 12/10/24 08:00 13 97 Nasal Cannula* 2 28 12/10/24 06:00 81 12/10/24 06:00 129/73 (91) 12/10/24 04:00 98.9 98.9 Total Intake and Output 12/09/24 12/09/24 12/10/24 15:00 23:00 07:00 Intake Total 132.50 ml 720 ml 250 ml Output Total 60 ml 100 ml Balance 132.50 ml 660 ml 150 ml medications Current Medications Medications Dose Ordered Sig/Shavon Route Start Time Stop Time Status Last Admin Dose Admin Acetaminophen 650 mg Q6HP PRN PO 12/04/24 03:30 12/09/24 19:53 650 MG Ondansetron HCl 4 mg Q4HP PRN IV 12/04/24 03:30 Diagnostic Test (Pha) 1 strip ACHS 12/04/24 07:00 12/10/24 07:30 1 STRIP Vancomycin HCl 0 ml @ 0 mls/hr UD IV 12/04/24 06:45 Pantoprazole Sodium 40 mg BID IV 12/04/24 06:45 12/09/24 22:30 40 MG Acetaminophen/ Hydrocodone Bitart 1 tab Q4HPRN PRN PO 12/04/24 14:30 12/09/24 03:16 1 TAB Morphine Sulfate 1 mg Q4HPRN PRN IV 12/04/24 14:30 Tamsulosin HCl 0.4 mg QPM PO 12/04/24 18:00 12/09/24 18:34 0.4 MG Metoprolol Succinate 25 mg DAILY PO 12/05/24 10:00 Hold 12/09/24 09:30 25 MG Azithromycin 250 ml @ 125 mls/hr DAILY IV 12/05/24 15:00 12/09/24 09:28 125 MLS/HR Meropenem 50 ml @ 17 mls/hr Q12HR IV 12/05/24 22:00 12/09/24 22:30 17 MLS/HR Norepinephrine Bitartrate 250 ml @ 3.75 mls/hr Q24H IV 12/05/24 18:15 12/09/24 10:32 3.75 MLS/HR Calcium Acetate 1,334 mg TIDWMEALS PO 12/08/24 12:00 12/10/24 08:53 1,334 MG Tbo-Filgrastim 300 mcg DAILY SC 12/08/24 12:30 12/09/24 09:38 300 MCG Albumin Human 100 ml @ 100 mls/hr BETTYE IV 12/09/24 10:30 12/09/24 12:11 100 MLS/HR Micafungin Sodium 100 mg/Sodium Chloride 100 ml @ 100 mls/hr DAILY IV 12/10/24 10:00 Gabapentin 200 mg HS PO 12/10/24 22:00 UNV Examination General: Afebrile, palor, mucosae are moist Cardiovascular: sternal wound clean, sternum stable, regular S1 and S2. No murmurs, gallops or rubs. No JVD elevation. No pedal edema. HD cath placed Respiratory: Normal B/L air entry on 2 L NC. Clear lung sounds on auscultation Abdomen: Soft, nontender, nondistended, normoactive bowel sounds, no rebound tenderness, no organomegaly, no masses. Neurological: Residual left lower extremity weakness.. Pupils are isocoric and reactive. Psych/Mental Status: A/Ox3 Patient has a stage II sacral decubitus ulcer, with erythema, not draining actively laboratory and microbiology Laboratory Tests 12/10/24 05:00 Test 12/10/24 05:00 Range/Units Serum Glucose 76 74-106 mg/dL Microbiology Date/Time Source Procedure Growth Status 12/08/24 14:39 Blood Blood Culture - Preliminary NO GROWTH AFTER 24 HOURS OF INCUBATION. Resulted 12/05/24 21:09 Nose MRSA Screen - Final Complete 12/04/24 16:50 Voided Urine Urine Culture - Final Complete Problem List/Assessment/Plan Problem List/Assessment/Plan Neurology #Acute metabolic/hypoxic encephalopathy due to stroke and sepsis #Possible acute cardioembolic stroke: corpus callosum, bilateral frontal and right parietal #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 There is no evidence of acute hemorrhage. There is no mass effect. There are additional scattered punctate foci of restricted diffusion in the bilateral frontal and right parietal lobe deep white matter which may represent tiny foci of acute to subacute infarcts. Bran MRI oct 2024: There prominent diffusion restriction also seen within the genu and anterior body of the corpus callosum. There is an apparent punctate additional focus of diffusion restriction in the medulla Neurology on board Aspirin continue Continue atorvastatin 40 mg EMILY normal Carotid duplex: No hemodynamically significant stenosis within the carotid arteries Pregabalin trial per neuro Cardiology #Severe coronary artery disease status post triple-vessel CABG #Substernal soft tissue density likely secondary to recent CABG #Possible acute on Chronic HFpEF, NYHA class III Cardiology signed off 12/05/24 ECHO: Left atrial enlargement with dilation of the sinuses of Valsalva. Mild RV enlargement. Moderate aortic sclerosis with diminished excursion of the leaflets and calcification of what appears to be the right and non coronary cusps. Left ventricular function appears preserved. EF of about 50% with normal RV function. The tricuspid is normal. Doppler reveals some mild to moderate TR. No pericardial effusion masses or vegetations. 12/04/24: Substernal soft tissue density and stranding without a large fluid collection. Fat stranding is nonspecific and should be correlated with timing of surgery. Alternatively this could reflect an infectious or inflammatory etiology. Small bilateral pleural effusions and passive atelectasis. Cardiomegaly. Aspirin continue Continue atorvastatin 40 mg Hold on other GDMT: GOPAL and shock HD Albumin IV Pulmonology #Septic shock due to possible pneumonia #Acute respiratory failure #PNA gram+/gram- #Small bilateral pleural effusions #Passive atelectasis #Mixed base disorder: respiratory alkalosis and metabolic acidosis Er Physician and critical care on board Azithromycin + Vanco+ Meropenem O2 2LT Fevers today: pancultures: prelim negatives start micafungin GI #Transaminitis secondary to chronic liver disease #Gallbladder polyps Coarsened liver echotexture suggestive of chronic liver disease. Trace ascites. Partially visualized trace right pleural effusion. Gallbladder polyps measuring up to 0.4 cm FOB negative Renal #GOPAL, likely vasomotor superimposed on CKD stage 3B #Dialysis urgency #Severe fluid overload #Hyperkalemia secondary to CKD #Hyperparathyroidism #Mixed base disorder: respiratory alkalosis and metabolic acidosis #Chronic indwelling Pond Urine culture came negative Transformation Analyst on board HD on the 12/08 and 12/09 Hematology #Pancitopenia: rule out neoplasm #Febrile neutropenia #Retroperitoneal lymphadenopathy #Rule out lymphoma #Normochromic and normocytic Anemia multifactorial: rule out neoplasm, CKD Lymph node biopsy done: non conclusive result Bone marrow biopsy Check hepatitis panel NOLBERTO double-stranded DNA CMV Christine-Deshpande virus, protein electrophoresis: Igg for CMV and EBV positive 2RBC given FOB negative [employer] on board Neupogen 2 days today Infectious #Febrile neutropenia #Septic shock due to possible pneumonia #Possible septic emboli #sacral wound EMILY Azithromycin + Vanco+ Meropenem + Micafungin Patient had a scral wound, cultures ordered Endocrinology #Hypoglycemia #Prediabetes Diabetic diet Stop insulin Case discussed with Dr Krishnamurthy Plan discussed with: Patient, Other (rn) My Orders My Orders Orders - KAMILLE VÁSQUEZ Procedure Category Date Status Time Micafungin Sodium PHA 12/10/24 In Process (Mycamine) 10:00 Urine Bacterial JOSE LUIS 12/10/24 Uncollected Culture 08:45 * Wound Consult CONS 12/10/24 Transmitted Wound Culture W/ Gs JOSE LUIS 12/10/24 Uncollected 09:40 Dietary Evaluation Review Comments: 1) Ergocalciferol 50,000IU weekly 2) Jose L 1 pk daily, MVI w/ mineral 1 tab, Vit C 500mg BID, Zinc sulfate 220mg daily x 10 days 3) Advance to [id number] + renal special 80gm protein diet 4) Continue current plan of care Expected Outcomes/Goals: Advance diet to meet at least 75% estimated needs FU 2-3 days CC Plasma Assessment Blood Product Administration S: 11:05 Date of Service: Dec 10, 2024 Billing Provider: DERIC KRISHNAMURTHY MD Common Visit Codes: [id number] INP/OBS CARE(HIGH) KAMILLE VÁSQUEZ RESIDENT Dec 10, 2024 10:33 DERIC KRISHNAMURTHY MD Dec 10, 2024 22:06
[2024-12-10 10:50] LABS: Hepatitis A Ab IgM Negative; Hepatitis B Core IgM Negative (Negative); Hepatitis C Antibody Negative (Negative)
[2024-12-10] MEDS: fentaNYL CITRATE 100 MCG/2 ML VL IV ONE (11:15)
--- NOTE | 2024-12-10 13:03 | DVH ---
PROCEDURE: CT GUIDED BIOPSY OF HISTORY: BONE MARROW BX COMPARISON: None PROCEDURE: Informed consent and time-out was performed before the procedure. Conscious sedation was p erformed by the interventional radiology nurse. The right posterior pelvic bone was marked, sterilize d, draped, and locally anesthetized using approximately 8 ml of 1% lidocaine. Axial CT images were us ed for localization. A 11 gauge Quitt.ch Bone Biopsy kit was used to take 12 mL aspirate and 1 core. The biopsy needle was then removed. No immediate complications noted. FINDINGS: Axial CT images demonstrates biopsy needle within the right posterior pelvic bone. IMPRESSION: CT-guided bone marrow aspiration biopsy of the right posterior pelvic bone.
--- NOTE | 2024-12-10 13:03 | DVH ---
CT PELVIS WO CONTRAST, HISTORY: BONE MARROW BX COMPARISON: None PROCEDURE: Informed consent and time-out was performed before the procedure. Conscious sedation was p erformed by the interventional radiology nurse. The right posterior pelvic bone was marked, sterilize d, draped, and locally anesthetized using approximately 8 ml of 1% lidocaine. Axial CT images were us ed for localization. A 11 gauge YuMe Bone Biopsy kit was used to take 12 mL aspirate and 1 core. The biopsy needle was then removed. No immediate complications noted. FINDINGS: Axial CT images demonstrates biopsy needle within the right posterior pelvic bone. IMPRESSION: CT-guided bone marrow aspiration biopsy of the right posterior pelvic bone.
[2024-12-10] MEDS: MIDAZOLAM HCL 2MG/2ML 2ml VIAL (1mg/ml) IV ONE (13:33)
[2024-12-10] MEDS: VANCOMYCIN 500mg/100mL 100 ML IV ONE (13:33)
[2024-12-10] MEDS: MICAFUNGIN SODIUM 100 MG in SODIUM CHL 0.9% 100 ML IV SCH (15:02)
[2024-12-10] MEDS: NYSTATIN (MOUTH-THROAT) 500,000 UNITS/5 ML SUSP MT SCH (16:22)
[2024-12-10] MEDS: PSYLLIUM PWD 5.8GM PKG GT ONE (16:22)
--- NOTE | 2024-12-10 18:56 | DVHPN2 ---
Progress Note Date Seen: Dec 10, 2024 Has the PT tested + for MRSA If YES, has PT been informed?: No Medical Necessity Reason Pt with a Central, PICC or Fol: Yes The following are medically ne: Pond Catheter Reason for pond catheter: Bladder Retention/Obstruc, Strict I&O Subjective Patient reports: No new complaints Review of Systems: Deferred Objective vital signs Vital Sign Date Time Temp Pulse Resp B/P (MAP) Pulse Ox O2 Delivery O2 Flow Rate FiO2 12/10/24 18:30 80 16 107/56 (73) 99 12/10/24 17:56 Nasal Cannula* 2 28 12/10/24 17:54 99.1 Total Intake and Output 12/09/24 12/09/24 12/10/24 15:00 23:00 07:00 Intake Total 132.50 ml 720 ml 250 ml Output Total 60 ml 100 ml Balance 132.50 ml 660 ml 150 ml medications Current Medications Medications Dose Ordered Sig/Shavon Route Start Time Stop Time Status Last Admin Dose Admin Acetaminophen 650 mg Q6HP PRN PO 12/04/24 03:30 12/10/24 16:54 650 MG Ondansetron HCl 4 mg Q4HP PRN IV 12/04/24 03:30 Diagnostic Test (Pha) 1 strip ACHS 12/04/24 07:00 12/10/24 17:00 1 STRIP Vancomycin HCl 0 ml @ 0 mls/hr UD IV 12/04/24 06:45 Pantoprazole Sodium 40 mg BID IV 12/04/24 06:45 12/10/24 10:19 40 MG Acetaminophen/ Hydrocodone Bitart 1 tab Q4HPRN PRN PO 12/04/24 14:30 12/09/24 03:16 1 TAB Morphine Sulfate 1 mg Q4HPRN PRN IV 12/04/24 14:30 Tamsulosin HCl 0.4 mg QPM PO 12/04/24 18:00 12/10/24 18:28 0.4 MG Metoprolol Succinate 25 mg DAILY PO 12/05/24 10:00 Hold 12/09/24 09:30 25 MG Meropenem 50 ml @ 17 mls/hr Q12HR IV 12/05/24 22:00 12/10/24 10:20 17 MLS/HR Norepinephrine Bitartrate 250 ml @ 3.75 mls/hr Q24H IV 12/05/24 18:15 12/09/24 10:32 3.75 MLS/HR Calcium Acetate 1,334 mg TIDWMEALS PO 12/08/24 12:00 12/10/24 18:30 1,334 MG Tbo-Filgrastim 300 mcg DAILY SC 12/08/24 12:30 12/10/24 11:07 300 MCG Albumin Human 100 ml @ 100 mls/hr BETTYE IV 12/09/24 10:30 12/09/24 12:11 100 MLS/HR Micafungin Sodium 100 mg/Sodium Chloride 100 ml @ 100 mls/hr DAILY IV 12/10/24 10:00 12/10/24 15:02 100 MLS/HR Gabapentin 200 mg HS PO 12/10/24 22:00 Nystatin 5 ml QID MT 12/10/24 16:00 12/10/24 16:22 5 ML laboratory and microbiology Laboratory Tests 12/10/24 05:00 Test 12/10/24 05:00 Range/Units Serum Glucose 76 74-106 mg/dL Microbiology Date/Time Source Procedure Growth Status 12/08/24 14:39 Blood Blood Culture - Preliminary NO GROWTH AFTER 48 HOURS OF INCUBATION. 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 Acute TIA (12/05/24) due to hypotension --GOPAL hemodyanmic requiring HD , first treatment 12/08 recs HD tomorrow BM biopsy today will f/u Plan discussed with: Patient Dietary Evaluation Review Comments: 1) Ergocalciferol 50,000IU weekly 2) Jose L 1 pk daily, MVI w/ mineral 1 tab, Vit C 500mg BID, Zinc sulfate 220mg daily x 10 days 3) Advance to [address] + renal special 80gm protein diet 4) Continue current plan of care Expected Outcomes/Goals: Advance diet to meet at least 75% estimated needs FU 2-3 days CC Plasma Assessment Blood Product Administration S: 11:05 SHARON HUERTA MD Dec 10, 2024 18:56
--- NOTE | 2024-12-10 19:18 | DVHPN2 ---
Progress Note - Dictate Date Seen: Dec 10, 2024 Has the PT tested + for MRSA If YES, has PT been informed?: No Medical Necessity Reason Pt with a Central, PICC or Fol: Yes The following are medically ne: Pond Catheter Reason for pond catheter: Bladder Retention/Obstruc, Strict I&O Subjective Patient seen and examined at bedside. Remains on supplemental oxygen Overnight events reviewed. vital signs Vital Sign Date Time Temp Pulse Resp B/P (MAP) Pulse Ox O2 Delivery O2 Flow Rate FiO2 12/10/24 18:30 80 16 107/56 (73) 99 12/10/24 17:56 Nasal Cannula* 2 28 12/10/24 17:54 99.1 Total Intake and Output 12/09/24 12/09/24 12/10/24 15:00 23:00 07:00 Intake Total 132.50 ml 720 ml 250 ml Output Total 60 ml 100 ml Balance 132.50 ml 660 ml 150 ml medications Current Medications Medications Dose Ordered Sig/Shavon Route Start Time Stop Time Status Last Admin Dose Admin Acetaminophen 650 mg Q6HP PRN PO 12/04/24 03:30 12/10/24 16:54 650 MG Ondansetron HCl 4 mg Q4HP PRN IV 12/04/24 03:30 Diagnostic Test (Pha) 1 strip ACHS 12/04/24 07:00 12/10/24 17:00 1 STRIP Vancomycin HCl 0 ml @ 0 mls/hr UD IV 12/04/24 06:45 Pantoprazole Sodium 40 mg BID IV 12/04/24 06:45 12/10/24 10:19 40 MG Acetaminophen/ Hydrocodone Bitart 1 tab Q4HPRN PRN PO 12/04/24 14:30 12/09/24 03:16 1 TAB Morphine Sulfate 1 mg Q4HPRN PRN IV 12/04/24 14:30 Tamsulosin HCl 0.4 mg QPM PO 12/04/24 18:00 12/10/24 18:28 0.4 MG Metoprolol Succinate 25 mg DAILY PO 12/05/24 10:00 Hold 12/09/24 09:30 25 MG Meropenem 50 ml @ 17 mls/hr Q12HR IV 12/05/24 22:00 12/10/24 10:20 17 MLS/HR Norepinephrine Bitartrate 250 ml @ 3.75 mls/hr Q24H IV 12/05/24 18:15 12/09/24 10:32 3.75 MLS/HR Calcium Acetate 1,334 mg TIDWMEALS PO 12/08/24 12:00 12/10/24 18:30 1,334 MG Tbo-Filgrastim 300 mcg DAILY SC 12/08/24 12:30 12/10/24 11:07 300 MCG Albumin Human 100 ml @ 100 mls/hr BETTYE IV 12/09/24 10:30 12/09/24 12:11 100 MLS/HR Micafungin Sodium 100 mg/Sodium Chloride 100 ml @ 100 mls/hr DAILY IV 12/10/24 10:00 12/10/24 15:02 100 MLS/HR Gabapentin 200 mg HS PO 12/10/24 22:00 Nystatin 5 ml QID MT 12/10/24 16:00 12/10/24 16:22 5 ML objective Gen.: Patient lying in bed in no apparent distress. On supplemental oxygen. Head: Normocephalic, atraumatic. Eyes: EOMI/PERRLA. Ears: Normal hearing. Normal anatomy. Neck/trachea: Trachea midline, supple. Nose: Normal external anatomy. Mouth: Moist mucous membranes. Chest: Decreased air entry bilaterally. No wheezing or rhonchi. Cardiovascular: Positive S1, positive S2. Regular rate and rhythm. Abdomen: Positive bowel sounds in all 4 quadrants. Soft, non-tender, non- distended. : Deferred. Rectal: Deferred. Skin: Warm, dry. Intact. Extremities: 2+ radial pulses bilaterally. No lower extremity edema. Neuro: Awake, alert, oriented x3. No gross motor or sensory deficits. Cranial nerves II through XII intact. Gait not assessed. laboratory and microbiology Laboratory Tests 12/10/24 05:00 Test 12/10/24 05:00 Range/Units Serum Glucose 76 74-106 mg/dL Assessment/Plan Impression: Acute hypoxic respiratory failure Dependence on supplemental oxygen Possible urinary tract infection CAD, s/p 3-vessel CABG. Septic shock Cerebrovascular accident Left pleural effusion Atelectasis Events: Remains on supplemental oxygen, 2 LPM NC Taper O2 as tolerated Patient febrile - ordered Tylenol Neutropenic precautions WBC of 0.7 Plan for Hemodialysis in AM Albumin x2 Off Levophed - requires Levophed during dialysis Plan for bone marrow biopsy Hematology recommendations appreciated Pressors as necessary to maintain a mean arterial blood pressure greater than 65 mmHg. Monitor blood pressure Head of bed elevation Aspiration precautions Continue antibiotics Continue antifungals Incentive spirometry Accu-Cheks, ISS Protonix BID Monitor hemoglobin S/p left IJ Lamin cath placement. See separate procedure note for details. HD per Nephrology Monitor renal function Nephrology recommendations appreciated CT head - positive CVA - plan for higher level of care. Brain MRI showed e/o multiple strokes Labs and imaging reviewed. Rest of plan as noted below. Plan: Supplemental oxygen Titrate to keep O2 sats above 92%. Pressors as necessary for hemodynamic support Titrate to keep mean arterial pressure greater than 65 mmHg. Echocardiogram reviewed, notable for EF 50% Cardiology recs appreciated. Continue antibiotics Incentive spirometry Accu-Cheks, ISS PRN. Monitor renal function. Monitor electrolytes. Supplement as necessary. Hyperkalemia - K at goal Monitor ins and outs. Pond for strict ins and outs Plan for HLOC due to CVA. DVT prophylaxis. Prognosis: Poor given patient's multiple co-morbidities. Condition: Critical Rest of plan per hospitalist and other consultants. A total of 35 minutes of critical care time was spent reviewing the patient record, examining the patient, making a diagnostic and therapeutic plan, discussing this plan with the medical personnel, following up on diagnostic studies and following the patient for clinical stability excluding any and all procedures. At least 50% of this time was spent in direct, [id number] contact. Thank you, Dr. Smith, for allowing me to participate in this patient's care. Further recommendations will depend on the patient's clinical course. Please do not hesitate to contact me if you have any questions or concerns. This medical document was created using an electronic medical record system with Oct[employer] dictation system. Although these documentations are being carefully reviewed, there may still be some phonetic and typographical changes. The errors are purely typographical, due to imperfection on the software program, and do not reflect any compromise in the patient's medical care. Dietary Evaluation Review Comments: 1) Ergocalciferol 50,000IU weekly 2) Jose L 1 pk daily, MVI w/ mineral 1 tab, Vit C 500mg BID, Zinc sulfate 220mg daily x 10 days 3) Advance to [id number] + renal special 80gm protein diet 4) Continue current plan of care Expected Outcomes/Goals: Advance diet to meet at least 75% estimated needs FU 2-3 days Plan discussed with: Other (VIJAY Ponce) Critical Care Time(min): 35 CC Plasma Assessment Blood Product Administration S: 11:05 JERAMY CAMARA MD Dec 10, 2024 19:18
--- NOTE | 2024-12-10 20:26 | DVHCONRES ---
Date Seen: Dec 10, 2024 Resident Creating Document: MALLORY SANTAMARIA RESIDENT Referring Physician Dr Reynolds Reason for Consultation Febrile neutropenia History of Present Illness Wolfgang White is a 59-year-old male patient who presents to the ED brought by family with chief complaint of progressive dyspnea in functional class IV, fever, chills, generalized weakness, confusion and anuria three days before his admission. Patient was recently discharged to a SNF from this facility after completing a triple-vessel CABG complicated with cardiac arrest and multiple strokes, currently patient is status bed-bound with chronic indwelling Jones. Denies palpitation, syncope, chest pain, abdominal pain, nausea, vomiting, diarrhea, dysuria and new motor or sensory deficits. Past medical history: Hypertension, diabetes, dyslipidemia, obesity, coronary artery disease status post triple-vessel CABG on October 2024 complicated with cardiac arrest and multiple strokes currently patient is bed-bound, HFpEF (LVEF 50%), CKD. Surgical history: October 2024 CABG Family history: Noncontributory Social history: Lives with family in [place]. 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). Ex-smoker (approximately 30 pack-year history of smoking). Denies current tobacco, alcohol and other drug abuse Allergies: Fish, shellfish, milk Home medication: Aspirin, clopidogrel, atorvastatin 80 mg p.o. daily, benzonatate, famotidine 20 mg p.o. b.i.d., furosemide 20 mg p.o. b.i.d., lisinopril 10 mg p.o. daily, melatonin 3 mg p.o. daily, metformin 500 mg p.o. daily, metoprolol 25 mg p.o. daily, tamsulosin 0.4 mg p.o. daily, tramadol 50 mg p.o. p.r.n. Patient seen and examined at bedside. Currently on LINDA status with intermittent requirement of norepinephrine during hemodialysis session, isolated with neutropenic precautions. Currently has no new complaints. Past Medical History Per HPI Past Surgical History Per HPI Family History: FH: alcohol abuse G8 FATHER FHx: lung disease G8 FATHER Sepsis Suicide G8 MOTHER Family History Per HPI Social History Per HPI Allergies: Coded Allergies: Shellfish Allergy (Verified Allergy, Unknown, 12/10/24) Uncoded Allergies: Fish, ShellFish, Milk (Allergy, Unknown, 2/20/25) Home Meds Active Scripts Clopidogrel Bisulfate (Plavix) 75 Mg Tab, 1 TAB PO DAILY for 21 Days, #21 TAB 1 Refill Prov:MARIA C DÍAZ [employer] 11/06/24 Tramadol HCl (Tramadol HCl) 50 Mg Tab, 50 MG PO Q8HP PRN for 5 Days, #15 TAB Prov:MARIA C DÍAZ [employer] 11/06/24 Reported Medications Lisinopril (Lisinopril) 10 Mg Tab, 1 TAB PO DAILY 12/04/24 Benzonatate (Benzonatate) 100 Mg Cap, 1 CAP PO TID 12/04/24 Tramadol Hcl (Tramadol Hcl) 50 Mg Tab, 1 TAB PO Q8HPRN PRN 12/04/24 Atorvastatin Calcium (ATORVASTATIN CALCIUM) 80 Mg Tab, 80 HS 12/04/24 Metoprolol Succinate (Metoprolol Succinate Er) 25 Mg Tab, 1 TAB PO DAILY 12/04/24 Clopidogrel Bisulfate (CLOPIDOGREL) 75 Mg Tab, 1 TAB PO DAILY 12/04/24 Tamsulosin Hcl (Tamsulosin Hcl) 0.4 Mg Cap, 0.4 MG PO QPM for 30 Days, MG 11/02/24 Metoprolol Tartrate (Metoprolol Tartrate) 25 Mg Tab, 0.5 TAB PO BID, #180 TAB 1 Refill 11/02/24 Melatonin (KP MELATONIN) 3 Mg Tab, 1 TAB PO QPM, #30 TAB 2 Refills 11/02/24 Heparin Sodium (Porcine) (Heparin Sodium) 5,000 Unit/0.5 Ml Inj, 5000 UNIT IJ, INJ 11/02/24 Furosemide (Lasix) 20 Mg Tb, 1 TAB PO BID, #90 TAB 1 Refill 11/02/24 Famotidine (Famotidine) 20 Mg Tab, 20 MG PO BID for 30 Days, MG 11/02/24 Aspirin (Aspirin) 81 Mg Chw, 81 MG PO, TAB.CHEW 11/02/24 Atorvastatin Calcium (Lipitor) 80 Mg Tab, 1 TAB PO DAILY, #30 TAB 5 Refills 11/02/24 Metformin Hydrochloride (Metformin Hcl) 500 Mg Tab, 500 MG PO DAILY for 30 Days, MG 11/01/24 Atorvastatin Calcium (ATORVASTATIN CALCIUM) 10 Mg Tab, 10 MG PO DAILY, TAB 11/01/24 Lisinopril (Lisinopril) 10 Mg Tab, 1 TAB PO DAILY for 60 Days, #60 10/11/24 Current Medications Current Medications Medications (Trade) Dose Ordered Sig/Shavon Route PRN Reason Start Time Stop Time Status Last Admin Micafungin Sodium 100 mg/Sodium Chloride 100 ml @ 100 mls/hr DAILY IV 12/10/24 10:00 12/10/24 15:02 Gabapentin (Neurontin Capsule) 200 mg HS PO 12/10/24 22:00 Nystatin (Mycostatin (Mouth-Throat)) 5 ml QID MT 12/10/24 16:00 12/10/24 16:22 Review of Systems Per HPI Vital Signs Vital Signs Date Time Temp Pulse Resp B/P (MAP) Pulse Ox O2 Delivery O2 Flow Rate FiO2 12/10/24 18:30 80 16 107/56 (73) 99 12/10/24 17:56 Nasal Cannula* 2 28 12/10/24 17:54 99.1 Physical Exam Patient lying in bed, in no acute distress General: Lucid, afebrile, mucosae are moist. Mucositis of tongue Cardiovascular: Normal S1 and S2. No murmurs, gallops or rubs. Sternotomy is stable, with no secretions or erythema, no cracking Respiratory: Normal ventilation mechanics. Clear lung sounds on auscultation. With requirement of nasal cannula at 4 liters/minute Abdomen: Soft, nontender, no organomegaly, normal bowel sounds MSK/skin: Mobilizes 4 limbs. Skin is dry and warm. Decubitus ulcer grade 3, with mild yellow-greenish secretion Neurological: Oriented in 3 spheres. Presents motor weakness of four limbs predominantly on right side, no motor no sensitive deficits. Bradypsychia. Pupils are isocoric and reactive Labs/Diagnostic Data Labs Test 12/10/24 18:06 12/10/24 05:00 12/09/24 05:08 12/08/24 18:30 Range/Units POC Glucose 117 H 70-106 mg/dl White Blood Count 0.7 *L 4.4-10.8 10^3/uL Red Blood Count 2.99 L 4.5-5.90 10^6/uL Hemoglobin 8.4 L 13.5-17.5 g/dL Hematocrit 24.8 L 41.0-53.0 % Mean Corpuscular Volume 82.9 80.0-100.0 fL Mean Corpuscular Hemoglobin 28.0 28.0-32.0 pg Mean Corpuscular Hemoglobin Concent 33.7 32.0-36.0 g/dL Red Cell Distribution Width 17.5 H 11.8-14.3 % Platelet Count 91 L 140-450 10^3/uL Mean Platelet Volume 9.1 6.9-10.8 fL Neutrophils (%) (Auto) 0.6 L 37.0-80.0 % Lymphocytes (%) (Auto) 38.8 10.0-50.0 % Monocytes (%) (Auto) 59.5 H 0.0-12.0 % Eosinophils (%) (Auto) 1.1 0.0-7.0 % Basophils (%) (Auto) 0.0 0.0-2.0 % Neutrophils # (Auto) 0 L 1.6-8.6 10 ^3/uL Lymphocytes # (Auto) 0.3 L 0.4-5.4 10 ^3/uL Monocytes # (Auto) 0.4 0-1.3 10 ^3/uL Eosinophils # (Auto) 0 0-0.8 10 ^3/uL Basophils # (Auto) 0 0-0.2 10 ^3/uL Nucleated Red Blood Cells 0.4 % Platelet Estimate Decreased Prothrombin Time 13.2 H 9.3-11.8 sec Prothrombin Time INR 1.28 H 0.9-1.15 Activated Partial Thromboplast Time 45.6 H 24.5-34.5 SEC Sodium Level 135 L 136-145 mmol/L Potassium Level 4.1 3.5-5.1 mmol/L Chloride Level 100 98-107 mmol/L Carbon Dioxide Level 26 20-31 mmol/L Anion Gap 9 5-15 Blood Urea Nitrogen 55 #H 9-23 mg/dL Creatinine 3.62 H 0.700-1.30 mg/dL Glomerular Filtration Rate Calc 18 >90 mL/min BUN/Creatinine Ratio 15.2 10.0-20.0 Serum Glucose 76 74-106 mg/dL Calcium Level 7.9 L 8.7-10.4 mg/dL Iron Level 34 L 65-175 ug/dL Total Iron Binding Capacity 123 L 250-425 ug/dL Percent Iron Saturation 27.6 20-55 % Ferritin > 3300.0 H 22-322 ng/mL Total Bilirubin 3.5 H 0.2-1.0 mg/dL Aspartate Amino Transferase (AST) 88 H 13-40 U/L Alanine Aminotransferase (ALT) 36 7-40 U/L Alkaline Phosphatase 616 H 46-116 U/L Total Protein 5.6 L 5.7-8.2 g/dL Albumin 2.6 L 3.2-4.8 g/dL Random Vancomycin Level 13.0 H 5-10 ug/mL Differential Total Cells Counted 100.0 100 Neutrophils % (Manual) 6 L 37.0-80.0 Band Neutrophils % (Manual) 1 Lymphocytes % (Manual) 56 H 10.0-50.0 Monocytes % (Manual) 36 H 0-12 Eosinophils % (Manual) 1 0-7 Basophils % (Manual) 0 0.0-2.0 Metamyelocytes % (manual) 0 Myelocytes % (Manual) 0 Promyelocytes % (Manual) 0 Blast Cells % (Manual) 0 Reactive Lymphocytes 0 Urine Color Yellow Yellow Urine Clarity Turbid H Clear Urine pH 5.0 5.0-9.0 Urine Specific [place] 1.014 1.001-1.035 Urine Protein 1+ H Negative Urine Ketones Negative Negative Urine Blood 3+ H Negative /uL Urine Nitrite Negative Negative Urine Bilirubin Negative Negative Urine Urobilinogen Normal Negative mg/dL Urine Leukocyte Esterase Negative Negative /uL Urine RBC 252 0 - 3 /hpf Urine Microscopic WBC 6 H 0-3 /HPF Urine Squamous Epithelial Cells None seen <5 /hpf Urine Bacteria None seen None Seen /hpf Urine Glucose Normal Normal mg/dL Test 12/08/24 05:04 12/07/24 20:15 12/07/24 13:55 12/07/24 04:47 Range/Units Lactic Acid Level 1.0 0.4-2.0 mmol/L Phosphorus Level 6.5 H 2.4-5.1 mg/dL Magnesium Level 2.7 H 1.6-2.6 mg/dL B-Type Natriuretic Peptide 374.68 0-100 pg/mL Hepatitis A IgM Antibody Negative Hepatitis B Surface Antigen Negative Negative Hepatitis B Core IgM Antibody Negative Negative Hepatitis C Antibody Negative Negative Triglycerides Level 141 < 150 mg/dL Cholesterol Level 77 < 200 mg/dL LDL Cholesterol 20 < 100 mg/dL HDL Cholesterol 9 L 40-59 mg/dL Anisocytosis (manual) Slight [place] Cells Few Hepatitis B Core Total Antibody Negative Negative Test 12/07/24 01:00 12/06/24 10:37 12/06/24 04:40 12/05/24 21:10 Range/Units Stool Occult Blood Negative Negative Stool Occult Blood Sample #3 Negative Anti-Cyclic Citrullinated Peptide 7 0-19 units Anti-Nuclear Antibody Screen Negative Negative Cytomegalovirus IgG Antibody >10.00 H 0.00-0.59 U/mL Cytomegalovirus IgM Antibody <30.0 0.0-29.9 AU/mL Christine-Deshpande Virus Capsid Ag IgG Ab >600.0 H 0.0-17.9 U/mL HIV (1&2) Antibody Negative Negative Large Platelets Few Lactate Dehydrogenase 322 H 120-246 U/L Thyroid Stimulating Hormone (TSH) 0.70 0.55-4.78 uIU/mL Hepatitis B Surface Antibody Negative Negative Troponin I High Sensitivity 70 *H </=54 ng/L Test 12/05/24 18:37 12/05/24 18:30 12/05/24 12:11 12/05/24 05:13 Range/Units Schistocytes Few Blood Gas Specimen Type Arterial Blood Gas Sample Site Right radial Blood Gas Patient Temperature 37.0 Arterial Blood Date Drawn [id number] Arterial Blood pH 7.438 7.350-7.450 Arterial Blood Partial Pressure CO2 27.0 L 35.0-48.0 mmHg Arterial Blood Partial Pressure O2 78.8 L 83.0-108.0 mmHg Arterial Blood HCO3 17.8 L 21.0-28.0 mmol/L Arterial Blood Oxygen Saturation 94.5 94.0-98.0 % Arterial Blood Base Excess -5.4 L -2.0-3.0 mmol/L Arterial Blood Oxyhemoglobin 93.4 L 94.0-98.0 % Arterial Blood Carboxyhemoglobin 0.3 L 0.5-1.5 % Arterial Blood Methemoglobin 0.9 0.0-1.5 % Khadar Test Modified Blood Gas Total Hemoglobin 8.60 L 13.5-17.5 g/dL Blood Gas Liter Flow 6.00 Blood Gas Modality Nasal cannula FiO2 % 44.0 Erythrocyte Sedimentation Rate 88 H 0-20 mm/hr Ovalocytes Few C-Reactive Protein High Sensitivity 15.65 H <1.0 mg/dL Test 12/04/24 16:50 12/04/24 07:00 12/04/24 05:30 12/04/24 04:50 Range/Units Urine Amorphous Crystals Few None Seen /hpf Urine Creatinine 70.59 30.0-125.0 mg/dL Urine Protein/Creatinine Ratio 1.84 Urine Sodium 23 L 40-220 mmol/L Urine Total Protein 129.7 H 1-14 mg/dL Urine Opiates Screen Neg NEGATIVE Urine Fentanyl Screen Neg NEGATIVE Urine Barbiturates Screen Neg NEGATIVE Urine Phencyclidine Screen Neg NEGATIVE Urine Amphetamines Screen Neg NEGATIVE Urine Benzodiazepines Screen Neg NEGATIVE Urine Cocaine Screen Neg NEGATIVE Urine Cannabinoids Screen Neg NEGATIVE Reticulocyte Count (auto) 0.77 0.5-1.5 % D-Dimer, Quantitative 3.43 H 0.0-0.49 mg/L FEU Parathyroid Hormone (Intact) 15.7 L 18.4-80.1 pg/mL Influenza Type A Antigen Negative Negative Influenza Type B Antigen Negative Negative SARS-CoV-2 Antigen (Rapid) Negative NEGATIVE Haptoglobin 316 29-370 mg/dL Hemoglobin A1c 5.9 H <5.7 % A1C Vitamin B12 Level 1395 H 211-911 pg/mL Vitamin D 25-Hydroxy 11.9 L 30.0-100 ng/mL Microbiology Date/Time Source Procedure Growth Status 12/08/24 14:39 Blood Blood Culture - Preliminary NO GROWTH AFTER 48 HOURS OF INCUBATION. Resulted 12/05/24 21:09 Nose MRSA Screen - Final Complete 12/04/24 16:50 Voided Urine Urine Culture - Final Complete Assessment Febrile neutropenia Questionable typhlitis Rule out opportunistic infection Rule out cholangitis Rule out mediastinitis Multiple CVAs - Ruled out infective endocarditis GOPAL hemodynamically mediated on CKD - currently on hemodialysis Pancytopenia - status post lymph node resection and bone marrow biopsy (rule out malignancy) Coronary artery disease status post triple-vessel CABG complicated with cardiac arrest and multiple strokes Decubitus sacral ulcer - present on admission Plan/Recommendation Ordered QuantiFERON (tuberculosis suspicion is low), HIV, cocci serology, Aspergillus antibodies, wound culture, and sputum culture. Could not obtain Histoplasma urinary antigen All three blood cultures sets negative at the moment. Urine culture negative. MRSA swabs were negative. Low probability of MRSA pneumonia. If considering infection source, high suspicion of neutropenic enterocolitis/typhlitis. Currently patient is on meropenem, daptomycin (to cover MRSA sepsis, not pneumonia), and micafungin. May consider switching to voriconazole depending on results of fungal serology Ordered MRCP to rule out cholangitis. Also ordered GGT to evaluate elevated alkaline phosphate (may be bone origin thinking of neoplasm versus biliary origin) Mediastinitis still not ruled out due to imaging without IV contrast, but diagnosis is highly unlikely due to stable sternotomy with no presence of secretion. Appreciate input of neurologist, clinical education assistant, siphoner and customer service technician specialist. Evaluate continuing DAPT per clinical education assistant recommendation Rest of recommendations per primary team. Discussed plan with Dr. Reeder, patient, family and nurses: Have ordered complementary study for opportunistic infections including TB, fungal etiology and HIV. Patient is currently under broad spectrum empiric IV antibiotics and antifungal medication (meropenem, daptomycin and micafungin), we will modify antibiotic treatment as complementary workup is resulted. Recommend ruling out cholangitis with MRCP. Awaiting results of biopsy of bone marrow and lymph node, malignancy is high on the differential diagnosis. Patient has poor prognosis I was present with the resident during the history and exam. I discussed the case with the resident and agree with the findings and plan as documented in the resident's note. -Marc Reeder Plan discussed with: Patient, Spouse, Daughter, Other (Nurses) MALLORY SANTAMARIA RESIDENT Dec 10, 2024 20:26 MARC REEDER MD Dec 22, 2024 20:20
[2024-12-10] MEDS ORDERED: DAPTOmycin 6MG/KG PER PHARMACY 0 MG IV SCH (20:30)
[2024-12-10] MEDS: GABAPENTIN 100 MG CAP PO SCH (21:38)
[2024-12-11] VITALS (77 sets, daily range): BP systolic 97–140; BP diastolic 44–79; PULSE 71–104; RESP 11–28; TEMP 98–99.6; O2SAT 83–99
[2024-12-11 05:23] LABS: Hemoglobin 8.6 g/dL (13.5-17.5); Platelet Count (auto) 77 10^3/uL (140-450)
[2024-12-11 05:26] LABS: Hematocrit 25.5 % (41.0-53.0); Mean Corpuscular Hemoglobin 28.5 pg (28.0-32.0); Mean Corpuscular Hgb Conc. 33.6 g/dL (32.0-36.0); Mean Corpuscular Volume 84.8 fL (80.0-100.0); Red Blood Cells 3.01 10^6/uL (4.5-5.90); Red Cell Distribution Width 17.3 % (11.8-14.3)
[2024-12-11 05:33] LABS: White Blood Cell 1.2 10^3/uL (4.4-10.8)
[2024-12-11 05:34] LABS: Basophils % (manual) 0 (0.0-2.0); Blast Cells 0; Metamyelocytes % 0; Myelocytes % 0; Promyelocytes % 0; Reactive Lymphocytes 0
[2024-12-11 05:44] LABS: Anion Gap 9 (5-15); BUN/Creatinine Ratio 13.7 (10.0-20.0); Carbon Dioxide 24 mmol/L (20-31); Chloride 99 mmol/L (98-107); Glucose 92 mg/dL (74-106); Potassium 4.3 mmol/L (3.5-5.1)
[2024-12-11 05:45] LABS: Alanine Aminotransferase 42 U/L (7-40); Albumin 2.4 g/dL (3.2-4.8); Alkaline Phosphatase 949 U/L (46-116); Aspartate Aminotransferase 120 U/L (13-40); Bilirubin, Total 4.3 mg/dL (0.2-1.0); Blood Urea Nitrogen 62 mg/dL (9-23); Calcium 8.2 mg/dL (8.7-10.4); Sodium 132 mmol/L (136-145); Total Protein 5.6 g/dL (5.7-8.2)
[2024-12-11 06:29] LABS: Band Neutrophils % (manual) 2; Eosinophils % (manual) 2 (0-7); Large Platelets FEW; Lymphocytes % (manual) 54 (10.0-50.0); Monocytes % (manual) 38 (0-12); Platelet Estimate Decreased
[2024-12-11] MEDS: SODIUM CHL 0.9% 1000 ML BAG XX ONE (08:45)
[2024-12-11] MEDS ORDERED: ALBUMIN 25% 100 ML IV PRN (10:00)
[2024-12-11] MEDS ORDERED: DAPTOmycin 500 MG in SODIUM CHL 0.9% 50 ML IV SCH (10:00)
--- NOTE | 2024-12-11 11:32 | DVHPNRES ---
Progress Note Date Seen: Dec 11, 2024 Resident Creating Document: KAMILLE VÁSQUEZ RESIDENT Has the PT tested + for MRSA If YES, has PT been informed?: No Medical Necessity Reason Pt with a Central, PICC or Fol: Yes The following are medically ne: Pond Catheter Reason for pond catheter: Bladder Retention/Obstruc, Strict I&O Subjective Review of Systems Mr. Vu is a 59-year-old male with a past medical history of coronary artery disease status post CABG in October 2024, ischemic stroke oct 2024, status post bed bound and chronic indwelling Pond, hypertension, and hyperlipidemia. He was brought to the ER by the family with a chief complaint of heavy breathing, fever, chills, and anuria for the past 3 days. Per the daughter at bedside, the patient had never followed up with urology or cardiology after he was discharged from this facility on 11/07/24. He usually makes 1600 cc of urine a day. Per daughter, patient has a wound in his back and is also draining a white pus-like substance. Patient also reported dysuria and abdominal discomfort. He also reports heavy breathing and mild nonproductive cough. On arrival, patient was febrile at 101.2F, tachycardic, blood pressure 144/77, and requiring 4 L oxygen supplementation. White cell count was 3.6, hemoglobin 8.8, and hematocrit 23. Patient had hyperkalemia, potassium was 6 which downtrended to 5.4. Creatinine was 2.9 and BUN 77. Patient's Pond catheter was removed in ED after being in place for more than a month, the patient does not urinate on his own, bladder scan showed empty bladder, nephrology was consulted. Chest x-ray shows bibasilar consolidation. The patient has mildly elevated transaminases. 12/05/[address] findings of substernal soft tissue density: new echo ordered, azithromycin was added to cover atypicals and hyperkalemia protocol was done, patient is having febrile neutropenia, CT scan of abdomen showed right groin lymphadenopathy, lymphadenopathy biopsy was done. 1 RBC was transfused per cardiology. 12/06/24 at 5:30 pm, patient had an episode of AMS, weakness, and hypotension, increased left leg weakness and left facial droop. CT scan negative for stroke or hemorrhage, patient was placed on Levophed and weaned off at 8 pm, fluids IV 100 cc during the night, today x-ray showed mild congestion. IV fluids reduced to 60cc and furosemide IV was started. New MRI showed multiple small strokes in different places; probably cardiembolic etiology. Neurology Dr. Cabral, stated no need for CTA or thrombectomy, also transfer to [facility] was planned but according to the center he had his CABG, patient can be managed in [facility]. Also, nephrology consulted. 12/07/24: EMILY was ordered and will be done today. Worsening renal function; nephrology will discuss possible hemodialysis with the patient and his family. 12/08/24: EMILY negative, neupogen started, patient had fever last night, new pancultures, renal function is trending high, dialysis catheter placed on the left, new K normal on place, possible HD today. 12/10/24: Stop plavix, patient continues to have fevers, cultures prelim negative, lymph node biopsy inconclusive, pending bone marrow biopsy. 12/11/24: ID was consulted, vancomycin was changed for daptomycin, further studies were ordered to study possible source of infection, WBC is trending high, last fever 12/10 4pm, HD was done but patient needed levophed 2mcg, bilirubin is trending high, EPO was started by Nephro Objective vital signs Vital Sign Date Time Temp Pulse Resp B/P (MAP) Pulse Ox O2 Delivery O2 Flow Rate FiO2 12/11/24 11:07 127/78 12/11/24 08:00 84 16 96 Nasal Cannula* 2 28 12/11/24 08:00 98.0 98.0 Total Intake and Output 12/10/24 12/10/24 12/11/24 15:00 23:00 07:00 Intake Total 150 ml 650 ml 50 ml Output Total 10 ml Balance 150 ml 640 ml 50 ml medications Current Medications Medications Dose Ordered Sig/Shavon Route Start Time Stop Time Status Last Admin Dose Admin Acetaminophen 650 mg Q6HP PRN PO 12/04/24 03:30 12/10/24 16:54 650 MG Ondansetron HCl 4 mg Q4HP PRN IV 12/04/24 03:30 Diagnostic Test (Pha) 1 strip ACHS 12/04/24 07:00 12/11/24 07:24 1 STRIP Pantoprazole Sodium 40 mg BID IV 12/04/24 06:45 12/11/24 10:51 40 MG Acetaminophen/ Hydrocodone Bitart 1 tab Q4HPRN PRN PO 12/04/24 14:30 12/10/24 20:25 1 TAB Morphine Sulfate 1 mg Q4HPRN PRN IV 12/04/24 14:30 Tamsulosin HCl 0.4 mg QPM PO 12/04/24 18:00 12/10/24 18:28 0.4 MG Metoprolol Succinate 25 mg DAILY PO 12/05/24 10:00 Hold 12/09/24 09:30 25 MG Meropenem 50 ml @ 17 mls/hr Q12HR IV 12/05/24 22:00 12/10/24 21:37 17 MLS/HR Norepinephrine Bitartrate 250 ml @ 3.75 mls/hr Q24H IV 12/05/24 18:15 12/11/24 10:10 3.75 MLS/HR Calcium Acetate 1,334 mg TIDWMEALS PO 12/08/24 12:00 12/11/24 08:44 1,334 MG Tbo-Filgrastim 300 mcg DAILY SC 12/08/24 12:30 12/11/24 10:51 300 MCG Albumin Human 100 ml @ 100 mls/hr BETTYE IV 12/09/24 10:30 Hold 12/09/24 12:11 100 MLS/HR Micafungin Sodium 100 mg/Sodium Chloride 100 ml @ 100 mls/hr DAILY IV 12/10/24 10:00 12/10/24 15:02 100 MLS/HR Gabapentin 200 mg HS PO 12/10/24 22:00 12/10/24 21:38 200 MG Nystatin 5 ml QID MT 12/10/24 16:00 12/11/24 06:07 5 ML Daptomycin 0 ml @ 0 mls/hr PER PHARMACY IV 12/10/24 20:30 Albumin Human 100 ml @ 100 mls/hr DAILYPRN PRN IV 12/11/24 10:00 12/11/24 23:59 Daptomycin 500 mg/ Sodium Chloride 50 ml @ 100 mls/hr Q48H IV 12/11/24 15:00 Examination General: Afebrile, palor, mucosae are moist Cardiovascular: sternal wound clean, sternum stable, regular S1 and S2. No murmurs, gallops or rubs. No JVD elevation. No pedal edema. HD cath placed Respiratory: Normal B/L air entry on 2 L NC. Clear lung sounds on auscultation Abdomen: Soft, nontender, nondistended, normoactive bowel sounds, no rebound tenderness, no organomegaly, no masses. Neurological: Residual left lower extremity weakness.. Pupils are isocoric and reactive. Psych/Mental Status: A/Ox3 Patient has a stage II sacral decubitus ulcer, with erythema, not draining actively laboratory and microbiology Laboratory Tests 12/11/24 04:57 Test 12/11/24 04:57 Range/Units Serum Glucose 92 74-106 mg/dL Microbiology Date/Time Source Procedure Growth Status 12/10/24 10:17 Voided Urine Urine Culture - Preliminary Resulted 12/08/24 14:39 Blood Blood Culture - Preliminary NO GROWTH AFTER 48 HOURS OF INCUBATION. Resulted 12/05/24 21:09 Nose MRSA Screen - Final Complete Problem List/Assessment/Plan Problem List/Assessment/Plan Neurology #Acute metabolic/hypoxic encephalopathy due to stroke and sepsis #Possible acute cardioembolic stroke: corpus callosum, bilateral frontal and right parietal #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 There is no evidence of acute hemorrhage. There is no mass effect. There are additional scattered punctate foci of restricted diffusion in the bilateral frontal and right parietal lobe deep white matter which may represent tiny foci of acute to subacute infarcts. Bran MRI oct 2024: There prominent diffusion restriction also seen within the genu and anterior body of the corpus callosum. There is an apparent punctate additional focus of diffusion restriction in the medulla Neurology on board Aspirin continue Continue atorvastatin 40 mg EMILY normal Carotid duplex: No hemodynamically significant stenosis within the carotid arteries Pregabalin trial per neuro Need of PT Cardiology #Severe coronary artery disease status post triple-vessel CABG #Substernal soft tissue density likely secondary to recent CABG #Possible acute on Chronic HFpEF, NYHA class III Cardiology signed off 12/05/24 ECHO: Left atrial enlargement with dilation of the sinuses of Valsalva. Mild RV enlargement. Moderate aortic sclerosis with diminished excursion of the leaflets and calcification of what appears to be the right and non coronary cusps. Left ventricular function appears preserved. EF of about 50% with normal RV function. The tricuspid is normal. Doppler reveals some mild to moderate TR. No pericardial effusion masses or vegetations. 12/04/24: Substernal soft tissue density and stranding without a large fluid collection. Fat stranding is nonspecific and should be correlated with timing of surgery. Alternatively this could reflect an infectious or inflammatory etiology. Small bilateral pleural effusions and passive atelectasis. Cardiomegaly. 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 Trace ascites. Partially visualized trace right pleural effusion. Gallbladder polyps measuring up to 0.4 cm FOB negative MRCP negative for acute pathology GGT high, AP high, bilirubins are trending high Renal #GOPAL due to septic shock #ESRD #Dialysis urgency #Severe fluid overload #Hyperkalemia secondary to CKD #Hyperparathyroidism #Mixed base disorder: respiratory alkalosis and metabolic acidosis #Chronic indwelling Pond Urine culture came negative Cloud Software Engineer on board HD on the 12/08, 12/09, 12/11 EPO per nephro Hematology #Pancitopenia: rule out neoplasm #Febrile neutropenia #Retroperitoneal lymphadenopathy #Rule out lymphoma #Normochromic and normocytic Anemia multifactorial: rule out neoplasm, CKD Lymph node biopsy done: non conclusive result Bone marrow biopsy pending Check hepatitis panel NOLBERTO double-stranded DNA CMV Christine-Deshpande virus, protein electrophoresis: Igg for CMV and EBV positive 2RBC given FOB negative Drawer Maker on board Neupogen 3 days today: wbc trending high Infectious #Febrile neutropenia #Septic shock due to possible pneumonia? #Possible septic emboli? #sacral wound #Rule out opportunistic infections #Possible tiflitis EMILY neg Daptomycin + Meropenem + Micafungin Patient had a sacral wound, cultures ordered: prelim yeast and gram + Multiple studies ordered to rule out opportunistic infection on severe immunocompromised patient Last fever 12/10 Endocrinology #Hypoglycemia #Prediabetes Diabetic diet Stop insulin Case discussed with Dr Mi Plan discussed with: Patient, Other (rn) My Orders My Orders Orders - KAMILLE VÁSQUEZ RESIDENT Procedure Category Date Status Time Ct Guidance For CT 12/10/24 Resulted Needle Placeme 12:[address] 12/10/24 Resulted 12:03 Infectious CONS 12/10/24 Transmitted Disease-Ahmed Esposito 15:12 Stool Bacterial JOSE LUIS 12/10/24 Uncollected Culture 15:12 Ova & Parasite Exam JOSE LUIS 12/10/24 Uncollected 15:12 Stool Wbc LAB 12/10/24 Logged 15:12 Nystatin PHA 12/10/24 In Process (Mouth-Throat) 16:00 * Infectious Genesis- CONS 12/10/24 Transmitted K Varinder 15:53 Quantiferon-Tb Gold LAB 12/10/24 In Process 21:48 Notify Provider NOTICE 12/11/24 Transmitted Malnutrition 08:00 Nutritional NOURISH 12/11/24 Transmitted Supplements 08:00 Increase Calorie NOURISH 12/11/24 Transmitted Intake 08:00 Dietary Evaluation Review Comments: 1) Ergocalciferol 50,000IU weekly 2) Jose L 1 pk daily, MVI w/ mineral 1 tab, Vit C 500mg BID, Zinc sulfate 220mg daily x 10 days 3) Advance to [id number] + renal special 80gm protein diet 4) Continue current plan of care Expected Outcomes/Goals: Advance diet to meet at least 75% estimated needs FU 2-3 days CC Plasma Assessment Blood Product Administration S: 11:05 Date of Service: Dec 11, 2024 Billing Provider: AKILAH MI DO Common Visit Codes: [id number] CARE 30-74 MIN KAMILLE VÁSQUEZ Dec 11, 2024 11:32 AKILAH MI DO Dec 14, 2024 11:44
--- NOTE | 2024-12-11 14:30 | DVHPN2 ---
Progress Note - Dictate Date Seen: Dec 11, 2024 Has the PT tested + for MRSA If YES, has PT been informed?: No Medical Necessity Reason Pt with a Central, PICC or Fol: Yes The following are medically ne: Pond Catheter Reason for pond catheter: Bladder Retention/Obstruc, Strict I&O Subjective Mr. Narciso White is a 59 years old right-handed gentleman with a history of hypertension, diabetes, dyslipidemia, coronary artery disease, heart attack, recent CABG, he was taken to the [facility] on 12/03/2024 with a chief company of fever. But he was also developed acute stroke syndrome I have seen and examined the patient, discussed with his nurse, he looks stronger, but still weak today, awake, oriented x3 He was going through hemodialysis Bone marrow biopsy on 12/11/2024 WBC is 1.2 today UDS, 12/04/2024: Negative Urinalysis, 12/04/2024: WBC: 1, urine leukocyte esterase: Negative WBC/HB/PLT/MCV, 12/06/2024: 0.6/7.8/147/84.5 12/07/2024: 0.8/8.2/141/it was 102 PTT/INR/PTT, 12/05/2024: 12.4/1.19/37.2 BUN/CR, 12/06/2024: 82/3.64 HGB A1c, 12/04/2024: 5.9 TBI/AST/ALT/AP, 12/06/2024: 1.5/68/37/454, 12/10/2024: 3.5/88/36/616 TG/HDL/LDL/HDL, 12/06/2024: 138/79/20/11, 12/07/2024: 141/77/20/9 Vitamin B12, 11/2024: 1395 TSH, 11/2024: 0.7 SIFE, 12/06/2024: Carotid Doppler, 12/07/2024: No hemodynamically significant stenosis within the carotid arteries Echocardiogram, 12/05/2024: Sinus rhythm. Left atrial enlargement with dilation of the sinuses of Valsalva. Mild RV enlargement. Moderate aortic sclerosis with diminished excursion of the leaflets and calcification of what appears to be the right and non coronary cusps. From the short axis view there does not appear to be limitation in motion. Normal pulmonic valve. Left ventricular function appears preserved. EF of about 50% with normal RV function. The tricuspid is normal. Doppler reveals some mild to moderate TR. No pericardial effusion masses or vegetations EMILY, 12/07/2024: Normal chamber dimensions. Valves appear to be structurally normal. Normal aortic mitral tricuspid and pulmonic valves Left ventricular function was preserved at 60% with normal RV function. Doppler reveals mild tricuspid insufficiency. Mild mitral insufficiency. No pericardial effusion masses or vegetations noted. The atrial appendage is normal. There are no thrombi present. Bubble study did not reveal crossover into the left side. Abnormal shunting otherwise present. MRI brain, 12/06/2024: 1. There is a small area of restricted diffusion involving the anterior body / genu of the corpus callosum consistent with an acute to subacute infarct. There is no evidence of acute hemorrhage. There is no mass effect. 2. There are additional scattered punctate foci of restricted diffusion in the bilateral frontal and right parietal lobe deep white matter which may represent tiny foci of acute to subacute infarcts vital signs Vital Sign Date Time Temp Pulse Resp B/P (MAP) Pulse Ox O2 Delivery O2 Flow Rate FiO2 12/11/24 12:00 18 96 Nasal Cannula* 2 28 12/11/24 12:00 90 12/11/24 12:00 98.6 102/69 (80) 98.6 Total Intake and Output 12/10/24 12/10/24 12/11/24 15:00 23:00 07:00 Intake Total 150 ml 650 ml 50 ml Output Total 10 ml Balance 150 ml 640 ml 50 ml medications Current Medications Medications Dose Ordered Sig/Shaovn Route Start Time Stop Time Status Last Admin Dose Admin Acetaminophen 650 mg Q6HP PRN PO 12/04/24 03:30 12/10/24 16:54 650 MG Ondansetron HCl 4 mg Q4HP PRN IV 12/04/24 03:30 Diagnostic Test (Pha) 1 strip ACHS 12/04/24 07:00 12/11/24 11:30 1 STRIP Pantoprazole Sodium 40 mg BID IV 12/04/24 06:45 12/11/24 10:51 40 MG Acetaminophen/ Hydrocodone Bitart 1 tab Q4HPRN PRN PO 12/04/24 14:30 12/10/24 20:25 1 TAB Morphine Sulfate 1 mg Q4HPRN PRN IV 12/04/24 14:30 Tamsulosin HCl 0.4 mg QPM PO 12/04/24 18:00 12/10/24 18:28 0.4 MG Metoprolol Succinate 25 mg DAILY PO 12/05/24 10:00 Hold 12/09/24 09:30 25 MG Meropenem 50 ml @ 17 mls/hr Q12HR IV 12/05/24 22:00 12/10/24 21:37 17 MLS/HR Norepinephrine Bitartrate 250 ml @ 3.75 mls/hr Q24H IV 12/05/24 18:15 12/11/24 10:10 3.75 MLS/HR Calcium Acetate 1,334 mg TIDWMEALS PO 12/08/24 12:00 12/11/24 13:47 1,334 MG Tbo-Filgrastim 300 mcg DAILY SC 12/08/24 12:30 12/11/24 10:51 300 MCG Albumin Human 100 ml @ 100 mls/hr BETTYE IV 12/09/24 10:30 Hold 12/09/24 12:11 100 MLS/HR Micafungin Sodium 100 mg/Sodium Chloride 100 ml @ 100 mls/hr DAILY IV 12/10/24 10:00 12/11/24 13:48 100 MLS/HR Gabapentin 200 mg HS PO 12/10/24 22:00 12/10/24 21:38 200 MG Nystatin 5 ml QID MT 12/10/24 16:00 12/11/24 13:48 5 ML Daptomycin 0 ml @ 0 mls/hr PER PHARMACY IV 12/10/24 20:30 Albumin Human 100 ml @ 100 mls/hr DAILYPRN PRN IV 12/11/24 10:00 12/11/24 23:59 Daptomycin 500 mg/ Sodium Chloride 50 ml @ 100 mls/hr Q48H IV 12/11/24 15:00 objective General: the patient is well developed and nourished. No acute distress. MENTAL STATUS: Subjective SPEECH, LANGUAGE, HIGHER CORTICAL FUNCTION: no aphasia or dysathria. CRANIAL NERVES: Pupils are equal, round and reactive. EOMs full and conjugate. No nystagmus. Facial sensation intact in all three divisions bilaterally. Mandibular strength intact. Facial muscles symmetrical and strength intact. SENSATION: Sensation to touch and pinprick is diminished distally in the lower extremities, but no [id number] differences MOTOR: Normal tone in the upper and lower extremity. Normal muscle bulk. No fasciculations. No abnormal movements or posturing. Muscle strength of the major groups in the upper extremities is: close to 4/5. He can move both legs, muscle power feels 3-4/5. REFLEXES: Deep tendon reflexes are symmetrical. No pathological reflexes. CEREBELLAR/COORDINATION: No ataxia in the upper extremities GAIT/STATION: deferred. laboratory and microbiology Laboratory Tests 12/11/24 04:57 Test 12/11/24 04:57 Range/Units Serum Glucose 92 74-106 mg/dL Problem List Recent acute stroke with left-sided weakness Acute stroke syndrome MRI evident multiple strokes (11/08/2024) Pancytopenia/rule out malignancy Anemia Fever/sepsis Septic shock Coronary artery disease with recent CABG Diabetic polyneuropathy Restless leg syndrome Anemia Elevated liver function tests Assessment/Plan Monitoring Supportive treatment Follow-up lipid profile LINDA Care Iron profile, ferritin Bone marrow biopsy (12/11/24) IV antibiotics Lipitor profile Aspirin 81 mg daily Lipitor 75 mg daily A trial of gabapentin 200 mg in the evening Physical therapist GI prophylaxis Up to chair He was aware of neuropathy related foot care More recommendation per clinical course This medical document was created using an electronic medical record system with [employer] dictation system. Although this document has been carefully reviewed, there may still be some phonetic and typographical errors. These areas are purely typographical due to imperfections of the software programs, and do not reflect any compromise in the patient's medical care. Prognosis poor Dietary Evaluation Review Comments: 1) Ergocalciferol 50,000IU weekly 2) Jose L 1 pk daily, MVI w/ mineral 1 tab, Vit C 500mg BID, Zinc sulfate 220mg daily x 10 days 3) Advance to [id number] + renal special 80gm protein diet 4) Continue current plan of care Expected Outcomes/Goals: Advance diet to meet at least 75% estimated needs FU 2-3 days Plan discussed with: Other CC Plasma Assessment Blood Product Administration S: 11:05 NIKOLAS PRATT MD Dec 11, 2024 14:30
--- NOTE | 2024-12-11 15:27 | DVH ---
MRI Abdomen, MRCP without IV Contrast Exam Date: 12/11/2024 02:19 PM Comparison: None History: Rule out cholangitis Technique: Multisequence multiplanar MRI images were obtained of the abomen. MRCP including 3D SPACE, Radial 2D slabs and SPACE 3D MIP images Findings: Moderate right pleural effusion. Left basilar subsegmental atelectasis. Liver: The liver is normal in size without focal lesions. Normal liver contour. Spleen: Splenomegaly. Pancreas: The pancreas is normal in appearance without focal lesions. Gallbladder and ducts: Gallbladder is normal in appearance. The cystic duct, right and left hepatic ducts, common hepatic duct, and common bile ducts are unremarkable. The pancreatic duct is within no rmal limits. Adrenal glands: Unremarkable. Kidneys: Normal enhancement without suspicious lesions or hydronephrosis. Visualized bowel: Grossly unremarkable. Vasculature: Unremarkable. Lymphadenopathy: No evidence for lymphadenopathy. Ascites: Absent. Musculoskeletal: Bone marrow signal is normal. IMPRESSION: Limited examination secondary to patient motion artifact. MRCP sequences are motion degraded. Gallbladder is decompressed without appreciable stones or sludge. Small volume ascites. Splenomegaly.
[2024-12-11] MEDS: DAPTOmycin 500 MG in SODIUM CHL 0.9% 50 ML IV ONE (15:38)
[2024-12-11] MEDS: DAPTOmycin 500 MG in SODIUM CHL 0.9% 50 ML IV SCH (16:17)
--- NOTE | 2024-12-11 19:17 | DVHPN2 ---
Consult Progress Note Date Seen: Dec 11, 2024 Objective vital signs Vital Sign Date Time Temp Pulse Resp B/P (MAP) Pulse Ox O2 Delivery O2 Flow Rate FiO2 12/11/24 18:45 88 16 109/61 (77) 95 12/11/24 18:00 Nasal Cannula* 2 28 12/11/24 16:00 98.8 98.8 Total Intake and Output 12/10/24 12/10/24 12/11/24 15:00 23:00 07:00 Intake Total 150 ml 650 ml 50 ml Output Total 10 ml Balance 150 ml 640 ml 50 ml medications Current Medications Medications Dose Ordered Sig/Shavon Route Start Time Stop Time Status Last Admin Dose Admin Acetaminophen 650 mg Q6HP PRN PO 12/04/24 03:30 12/10/24 16:54 650 MG Ondansetron HCl 4 mg Q4HP PRN IV 12/04/24 03:30 Diagnostic Test (Pha) 1 strip ACHS 12/04/24 07:00 12/11/24 17:00 1 STRIP Pantoprazole Sodium 40 mg BID IV 12/04/24 06:45 12/11/24 10:51 40 MG Acetaminophen/ Hydrocodone Bitart 1 tab Q4HPRN PRN PO 12/04/24 14:30 12/10/24 20:25 1 TAB Morphine Sulfate 1 mg Q4HPRN PRN IV 12/04/24 14:30 Tamsulosin HCl 0.4 mg QPM PO 12/04/24 18:00 12/11/24 18:40 0.4 MG Metoprolol Succinate 25 mg DAILY PO 12/05/24 10:00 Hold 12/09/24 09:30 25 MG Meropenem 50 ml @ 17 mls/hr Q12HR IV 12/05/24 22:00 12/10/24 21:37 17 MLS/HR Norepinephrine Bitartrate 250 ml @ 3.75 mls/hr Q24H IV 12/05/24 18:15 12/11/24 10:10 3.75 MLS/HR Calcium Acetate 1,334 mg TIDWMEALS PO 12/08/24 12:00 12/11/24 18:41 1,334 MG Tbo-Filgrastim 300 mcg DAILY SC 12/08/24 12:30 12/11/24 10:51 300 MCG Albumin Human 100 ml @ 100 mls/hr BETTYE IV 12/09/24 10:30 Hold 12/09/24 12:11 100 MLS/HR Micafungin Sodium 100 mg/Sodium Chloride 100 ml @ 100 mls/hr DAILY IV 12/10/24 10:00 12/11/24 13:48 100 MLS/HR Gabapentin 200 mg HS PO 12/10/24 22:00 12/10/24 21:38 200 MG Nystatin 5 ml QID MT 12/10/24 16:00 12/11/24 18:43 5 ML Daptomycin 0 ml @ 0 mls/hr PER PHARMACY IV 12/10/24 20:30 Albumin Human 100 ml @ 100 mls/hr DAILYPRN PRN IV 12/11/24 10:00 12/11/24 23:59 Daptomycin 500 mg/ Sodium Chloride 50 ml @ 100 mls/hr Q48H IV 12/11/24 15:00 12/11/24 16:17 100 MLS/HR Enteral Nutritional Formula 240 ml BIDWM PO 12/12/24 08:00 UNV laboratory and microbiology Laboratory Tests 12/11/24 04:57 Test 12/11/24 04:57 Range/Units Serum Glucose 92 74-106 mg/dL Problem List/Assessment/Plan Problem List/Assessment/Plan Wolfgang White is a 59-year-old male patient who presents to the ED brought by family with chief complaint of progressive dyspnea in functional class IV, fever, chills, generalized weakness, confusion and anuria three days before his admission. Patient was recently discharged to a SNF from this facility after completing a triple-vessel CABG complicated with cardiac arrest and multiple strokes, currently patient is status bed-bound with chronic indwelling Jones. Denies palpitation, syncope, chest pain, abdominal pain, nausea, vomiting, diarrhea, dysuria and new motor or sensory deficits. Past medical history: Hypertension, diabetes, dyslipidemia, obesity, coronary artery disease status post triple-vessel CABG on October 2024 complicated with cardiac arrest and multiple strokes currently patient is bed-bound, HFpEF (LVEF 50%), CKD. Surgical history: October 2024 CABG Family history: Noncontributory Social history: Lives with family in [place]. 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 Ex-smoker (approximately 30 pack-year history of smoking). Denies current tobacco, alcohol and other drug abuse Allergies: Fish, shellfish, milk Home medication: Aspirin, clopidogrel, atorvastatin 80 mg p.o. daily, benzonatate, famotidine 20 mg p.o. b.i.d., furosemide 20 mg p.o. b.i.d., lisinopril 10 mg p.o. daily, melatonin 3 mg p.o. daily, metformin 500 mg p.o. daily, metoprolol 25 mg p.o. daily, tamsulosin 0.4 mg p.o. daily, tramadol 50 mg p.o. p.r.n. Patient seen and examined at bedside. Currently on LINDA status with intermittent requirement of norepinephrine during hemodialysis session, isolated with neutropenic precautions. WBCs mildly increased (neutrophils only 4%) Currently has no new complaints. Physical Exam Patient lying in bed, in no acute distress General: Lucid, afebrile, mucosae are moist. Mucositis of tongue Cardiovascular: Normal S1 and S2. No murmurs, gallops or rubs. Sternotomy is stable, with no secretions or erythema, no cracking Respiratory: Normal ventilation mechanics. Clear lung sounds on auscultation. With requirement of nasal cannula at 4 liters/minute Abdomen: Soft, nontender, no organomegaly, normal bowel sounds MSK/skin: Mobilizes 4 limbs. Skin is dry and warm. Decubitus ulcer grade 3, with mild yellow-greenish secretion Neurological: Oriented in 3 spheres. Presents motor weakness of four limbs predominantly on right side, no motor no sensitive deficits. Bradypsychia. Pupils are isocoric and reactive Assessment Febrile neutropenia Questionable typhlitis Rule out opportunistic infection Ruled out cholangitis Rule out mediastinitis Rule out hemolysis Multiple CVAs - Ruled out infective endocarditis GOPAL hemodynamically mediated on CKD - currently on hemodialysis Pancytopenia - status post lymph node resection and bone marrow biopsy (rule out malignancy) Coronary artery disease status post triple-vessel CABG complicated with cardiac arrest and multiple strokes Decubitus ulcer - present on admission Plan/Recommendation Ordered QuantiFERON (tuberculosis suspicion is low), HIV, cocci serology, Aspergillus and histoplasmosis antibodies, wound culture (preliminary yeast), and sputum culture. All three blood cultures sets negative at the moment. Urine culture negative. MRSA swabs were negative. Low probability of MRSA pneumonia. If considering infection source, high suspicion of neutropenic enterocolitis/typhlitis. Currently patient is on meropenem, daptomycin (to cover MRSA sepsis, not pneumonia), and micafungin. May consider switching to voriconazole depending on results of fungal serology Positive GGT (approximately 400),elevated alkaline phosphate probable biliary origin. MRCP ruled out bile duct or gallbladder distention, evidence trace ascites and splenomegaly. Ordered direct Farrukh and haptoglobin to rule out hemolysis Mediastinitis still not ruled out due to imaging without IV contrast, but diagnosis is highly unlikely due to stable sternotomy with no presence of secretion. Biopsy of lymph node showed activated T lymphocytes (nonconclusive). Pending bone marrow biopsy results Appreciate input of neurologist, high school english teacher, agricultural science professor and harness builder specialist. Evaluate continuing DAPT per high school english teacher recommendation Rest of recommendations per primary team. Discussed plan with Dr. Reeder, patient, family and nurses: Have ordered complementary study for opportunistic infections including TB, fungal etiology and HIV. Patient is currently under broad spectrum empiric IV antibiotics and antifungal medication (meropenem, daptomycin and micafungin), we will modify antibiotic treatment as complementary workup is resulted. Awaiting results of biopsy of bone marrow, malignancy is high on the differential diagnosis. Patient has poor prognosis Plan discussed with: Patient, Daughter, Other (Nurses) Dietary Evaluation Review Comments: 1) Ergocalciferol 50,000IU weekly 2) Jose L 1 pk daily, MVI w/ mineral 1 tab, Vit C 500mg BID, Zinc sulfate 220mg daily x 10 days 3) Advance to [id number] + renal special 80gm protein diet 4) Continue current plan of care Expected Outcomes/Goals: Advance diet to meet at least 75% estimated needs FU 2-3 days CC Plasma Assessment Blood Product Administration S: 11:05 MALLORY SANTAMARIA RESIDENT Dec 11, 2024 19:17 MARC REEDER MD Dec 22, 2024 20:21
--- NOTE | 2024-12-11 20:57 | DVHPN2 ---
Progress Note Date Seen: Dec 11, 2024 Has the PT tested + for MRSA If YES, has PT been informed?: No Medical Necessity Reason Pt with a Central, PICC or Fol: Yes The following are medically ne: Pond Catheter Reason for pond catheter: Bladder Retention/Obstruc, Strict I&O Subjective Patient reports: No new complaints Review of Systems: Deferred Objective vital signs Vital Sign Date Time Temp Pulse Resp B/P (MAP) Pulse Ox O2 Delivery O2 Flow Rate FiO2 12/11/24 20:00 99.6 90 17 96 99.6 12/11/24 18:00 Nasal Cannula* 2 28 Total Intake and Output 12/10/24 12/10/24 12/11/24 15:00 23:00 07:00 Intake Total 150 ml 650 ml 50 ml Output Total 10 ml Balance 150 ml 640 ml 50 ml medications Current Medications Medications Dose Ordered Sig/Shavon Route Start Time Stop Time Status Last Admin Dose Admin Acetaminophen 650 mg Q6HP PRN PO 12/04/24 03:30 12/10/24 16:54 650 MG Ondansetron HCl 4 mg Q4HP PRN IV 12/04/24 03:30 Diagnostic Test (Pha) 1 strip ACHS 12/04/24 07:00 12/11/24 17:00 1 STRIP Pantoprazole Sodium 40 mg BID IV 12/04/24 06:45 12/11/24 10:51 40 MG Acetaminophen/ Hydrocodone Bitart 1 tab Q4HPRN PRN PO 12/04/24 14:30 12/10/24 20:25 1 TAB Morphine Sulfate 1 mg Q4HPRN PRN IV 12/04/24 14:30 Tamsulosin HCl 0.4 mg QPM PO 12/04/24 18:00 12/11/24 18:40 0.4 MG Metoprolol Succinate 25 mg DAILY PO 12/05/24 10:00 Hold 12/09/24 09:30 25 MG Meropenem 50 ml @ 17 mls/hr Q12HR IV 12/05/24 22:00 12/10/24 21:37 17 MLS/HR Norepinephrine Bitartrate 250 ml @ 3.75 mls/hr Q24H IV 12/05/24 18:15 12/11/24 10:10 3.75 MLS/HR Calcium Acetate 1,334 mg TIDWMEALS PO 12/08/24 12:00 12/11/24 18:41 1,334 MG Tbo-Filgrastim 300 mcg DAILY SC 12/08/24 12:30 12/11/24 10:51 300 MCG Albumin Human 100 ml @ 100 mls/hr BETTYE IV 12/09/24 10:30 Hold 12/09/24 12:11 100 MLS/HR Micafungin Sodium 100 mg/Sodium Chloride 100 ml @ 100 mls/hr DAILY IV 12/10/24 10:00 12/11/24 13:48 100 MLS/HR Gabapentin 200 mg HS PO 12/10/24 22:00 12/10/24 21:38 200 MG Nystatin 5 ml QID MT 12/10/24 16:00 12/11/24 18:43 5 ML Daptomycin 0 ml @ 0 mls/hr PER PHARMACY IV 12/10/24 20:30 Albumin Human 100 ml @ 100 mls/hr DAILYPRN PRN IV 12/11/24 10:00 12/11/24 23:59 Daptomycin 500 mg/ Sodium Chloride 50 ml @ 100 mls/hr Q48H IV 12/11/24 15:00 12/11/24 16:17 100 MLS/HR Enteral Nutritional Formula 240 ml BIDWM PO 12/12/24 08:00 laboratory and microbiology Laboratory Tests 12/11/24 04:57 Test 12/11/24 04:57 Range/Units Serum Glucose 92 74-106 mg/dL Microbiology Date/Time Source Procedure Growth Status 12/10/24 10:17 Sacrum Gram Stain - Final Resulted 12/10/24 10:17 Sacrum Wound Culture - Preliminary Resulted 12/10/24 10:17 Voided Urine Urine Culture - Preliminary Resulted 12/08/24 14:39 Blood Blood Culture - Preliminary NO GROWTH AFTER 72 HOURS OF INCUBATION. Resulted Problem List/Assessment/Plan Problem List/Assessment/Plan Acute kidney injury due to sepsis +urinary obstruction now needing HD subacute Gopal patient noted to have severe GOPAL post CABG 10/2024 Chronic kidney disease stage IIIB 09/2024 GFR 44 pancytopenia s/p BM biopsy 12/10/24 anemia status post PRBC Sepsis secondary to urinary tract infection Chronic urinary retention Pond catheter was removed by ER on this admission -> replaced Hyperkalemia Chronic CVA w/ residual left sided weakness Acute TIA (12/05/24) due to hypotension --GOPAL hemodyanmic requiring HD , first treatment 12/08 recs HD today s/p BM biopsy will f/u Plan discussed with: Patient My Orders My Orders Orders - SHARON HUERTA MD Procedure Category Date Status Time Hemodialysis Orders ORDERS 12/11/24 Transmitted 08:41 Epoetin Tonio-Epbx PHA 12/11/24 In Process (Retacrit) 21:00 Albumin 25% (Albutein) PHA 12/11/24 In Process 10:00 Dietary Evaluation Review Comments: 1) Ergocalciferol 50,000IU weekly 2) Jose L 1 pk daily, MVI w/ mineral 1 tab, Vit C 500mg BID, Zinc sulfate 220mg daily x 10 days 3) Advance to [id number] + renal special 80gm protein diet 4) Continue current plan of care Expected Outcomes/Goals: Advance diet to meet at least 75% estimated needs FU 2-3 days CC Plasma Assessment Blood Product Administration S: 11:05 SHARON HUERTA MD Dec 11, 2024 20:57
[2024-12-11] MEDS: EPOETIN ALFA-EPBX 10,000 UNIT/1ML VIAL SC ONE (21:06)
--- NOTE | 2024-12-11 21:11 | DVHPN2 ---
Progress Note - Dictate Date Seen: Dec 11, 2024 Has the PT tested + for MRSA If YES, has PT been informed?: No Medical Necessity Reason Pt with a Central, PICC or Fol: Yes The following are medically ne: Pond Catheter Reason for pond catheter: Bladder Retention/Obstruc, Strict I&O Subjective Patient seen and examined at bedside. Remains on supplemental oxygen Overnight events reviewed. vital signs Vital Sign Date Time Temp Pulse Resp B/P (MAP) Pulse Ox O2 Delivery O2 Flow Rate FiO2 12/11/24 20:00 99.6 90 17 96 99.6 12/11/24 18:00 Nasal Cannula* 2 28 Total Intake and Output 12/10/24 12/10/24 12/11/24 14:59 22:59 06:59 Intake Total 150 ml 650 ml 50 ml Output Total 10 ml Balance 150 ml 640 ml 50 ml medications Current Medications Medications Dose Ordered Sig/Shavon Route Start Time Stop Time Status Last Admin Dose Admin Acetaminophen 650 mg Q6HP PRN PO 12/04/24 03:30 12/10/24 16:54 650 MG Ondansetron HCl 4 mg Q4HP PRN IV 12/04/24 03:30 Diagnostic Test (Pha) 1 strip ACHS 12/04/24 07:00 12/11/24 17:00 1 STRIP Pantoprazole Sodium 40 mg BID IV 12/04/24 06:45 12/11/24 10:51 40 MG Acetaminophen/ Hydrocodone Bitart 1 tab Q4HPRN PRN PO 12/04/24 14:30 12/10/24 20:25 1 TAB Morphine Sulfate 1 mg Q4HPRN PRN IV 12/04/24 14:30 Tamsulosin HCl 0.4 mg QPM PO 12/04/24 18:00 12/11/24 18:40 0.4 MG Metoprolol Succinate 25 mg DAILY PO 12/05/24 10:00 Hold 12/09/24 09:30 25 MG Meropenem 50 ml @ 17 mls/hr Q12HR IV 12/05/24 22:00 12/10/24 21:37 17 MLS/HR Norepinephrine Bitartrate 250 ml @ 3.75 mls/hr Q24H IV 12/05/24 18:15 12/11/24 10:10 3.75 MLS/HR Calcium Acetate 1,334 mg TIDWMEALS PO 12/08/24 12:00 12/11/24 18:41 1,334 MG Tbo-Filgrastim 300 mcg DAILY SC 12/08/24 12:30 12/11/24 10:51 300 MCG Albumin Human 100 ml @ 100 mls/hr BETTYE IV 12/09/24 10:30 Hold 12/09/24 12:11 100 MLS/HR Micafungin Sodium 100 mg/Sodium Chloride 100 ml @ 100 mls/hr DAILY IV 12/10/24 10:00 12/11/24 13:48 100 MLS/HR Gabapentin 200 mg HS PO 12/10/24 22:00 12/10/24 21:38 200 MG Nystatin 5 ml QID MT 12/10/24 16:00 12/11/24 18:43 5 ML Daptomycin 0 ml @ 0 mls/hr PER PHARMACY IV 12/10/24 20:30 Albumin Human 100 ml @ 100 mls/hr DAILYPRN PRN IV 12/11/24 10:00 12/11/24 23:59 Daptomycin 500 mg/ Sodium Chloride 50 ml @ 100 mls/hr Q48H IV 12/11/24 15:00 12/11/24 16:17 100 MLS/HR Enteral Nutritional Formula 240 ml BIDWM PO 12/12/24 08:00 objective Gen.: Patient lying in bed in no apparent distress. On supplemental oxygen. Head: Normocephalic, atraumatic. Eyes: EOMI/PERRLA. Ears: Normal hearing. Normal anatomy. Neck/trachea: Trachea midline, supple. Nose: Normal external anatomy. Mouth: Moist mucous membranes. Chest: Decreased air entry bilaterally. No wheezing or rhonchi. Cardiovascular: Positive S1, positive S2. Regular rate and rhythm. Abdomen: Positive bowel sounds in all 4 quadrants. Soft, non-tender, non- distended. : Deferred. Rectal: Deferred. Skin: Warm, dry. Intact. Extremities: 2+ radial pulses bilaterally. No lower extremity edema. Neuro: Awake, alert, oriented x3. No gross motor or sensory deficits. Cranial nerves II through XII intact. Gait not assessed. laboratory and microbiology Laboratory Tests 12/11/24 04:57 Test 12/11/24 04:57 Range/Units Serum Glucose 92 74-106 mg/dL Assessment/Plan Impression: Acute hypoxic respiratory failure Dependence on supplemental oxygen Possible urinary tract infection CAD, s/p 3-vessel CABG. Septic shock Cerebrovascular accident Left pleural effusion Atelectasis Events: Remains on supplemental oxygen, 2 LPM NC Taper O2 as tolerated Neutropenic precautions WBC of 1.2 Leukopenia - on Filgrastim Hemodialysis yesterday Off Levophed - requires Levophed during dialysis Pressors as necessary to maintain a mean arterial blood pressure greater than 65 mmHg. Monitor blood pressure Head of bed elevation Aspiration precautions Continue antibiotics Continue antifungals Incentive spirometry Accu-Cheks Protonix BID Monitor hemoglobin Monitor platelets d/t thrombocytopenia S/p bone marrow biopsy Hematology recommendations appreciated S/p left IJ Lamin cath placement. HD per Nephrology Monitor renal function Nephrology recommendations appreciated CT head - positive CVA - plan for higher level of care. Brain MRI showed e/o multiple strokes Labs and imaging reviewed. Rest of plan as noted below. Plan: Supplemental oxygen Titrate to keep O2 sats above 92%. Pressors as necessary for hemodynamic support Titrate to keep mean arterial pressure greater than 65 mmHg. Echocardiogram reviewed, notable for EF 50% Cardiology recs appreciated. Continue antibiotics Incentive spirometry Accu-Cheks, ISS PRN. Monitor renal function. Monitor electrolytes. Supplement as necessary. Monitor ins and outs. Pond for strict ins and outs Plan for HLOC due to CVA. DVT prophylaxis. Prognosis: Poor given patient's multiple co-morbidities. Condition: Critical Rest of plan per hospitalist and other consultants. A total of 35 minutes of critical care time was spent reviewing the patient record, examining the patient, making a diagnostic and therapeutic plan, discussing this plan with the medical personnel, following up on diagnostic studies and following the patient for clinical stability excluding any and all procedures. At least 50% of this time was spent in direct, [id number] contact. Thank you, Dr. Smith, for allowing me to participate in this patient's care. Further recommendations will depend on the patient's clinical course. Please do not hesitate to contact me if you have any questions or concerns. This medical document was created using an electronic medical record system with [employer] system. Although these documentations are being carefully reviewed, there may still be some phonetic and typographical changes. The errors are purely typographical, due to imperfection on the software program, and do not reflect any compromise in the patient's medical care. Dietary Evaluation Review Comments: 1) Ergocalciferol 50,000IU weekly 2) Jose L 1 pk daily, MVI w/ mineral 1 tab, Vit C 500mg BID, Zinc sulfate 220mg daily x 10 days 3) Advance to [id number] + renal special 80gm protein diet 4) Continue current plan of care Expected Outcomes/Goals: Advance diet to meet at least 75% estimated needs FU 2-3 days Plan discussed with: Other (VIJAY Ponce) Critical Care Time(min): 35 CC Plasma Assessment Blood Product Administration S: 11:05 JERAMY CAMARA MD Dec 11, 2024 21:11
[2024-12-12] VITALS (82 sets, daily range): BP systolic 82–127; BP diastolic 45–68; PULSE 69–109; RESP 8–23; TEMP 98.4–103.2; O2SAT 82–99
[2024-12-12 05:19] LABS: Mean Corpuscular Hgb Conc. 33.5 g/dL (32.0-36.0)
[2024-12-12 05:21] LABS: Hematocrit 23.9 % (41.0-53.0); Mean Corpuscular Hemoglobin 27.8 pg (28.0-32.0); Mean Corpuscular Volume 82.9 fL (80.0-100.0); Platelet Count (auto) 71 10^3/uL (140-450); Red Blood Cells 2.88 10^6/uL (4.5-5.90); Red Cell Distribution Width 17.2 % (11.8-14.3)
--- NOTE | 2024-12-12 05:21 | DVH ---
EXAM: XR Chest, 1 View CLINICAL INDICATION: dyspnea TECHNIQUE: Frontal view of the chest. COMPARISON: XY CHEST XRAY 1 VIEW on DOS: 11/02/24, XY CHEST XRAY 1 VIEW on DOS: 10/17/24, XY CHEST POR TABLE on DOS: 10/14/24 FINDINGS: LUNGS AND PLEURAL SPACES: Bibasilar atelectasis or pneumonia. Pulmonary venous congestion. Low mansi ng volumes. No pneumothorax. HEART: Unremarkable. No cardiomegaly. MEDIASTINUM: Unremarkable. Normal mediastinal contour. BONES/JOINTS: Unremarkable. No acute fracture. OTHER FINDINGS: . . IMPRESSION: 1. Bibasilar atelectasis or pneumonia. 2. Pulmonary venous congestion.
[2024-12-12 05:33] LABS: Basophils % (manual) 0 (0.0-2.0); Blast Cells 0; Eosinophils % (manual) 0 (0-7); Metamyelocytes % 0; Promyelocytes % 0; Reactive Lymphocytes 0
[2024-12-12 05:40] LABS: Alanine Aminotransferase 29 U/L (7-40); Anion Gap 6 (5-15); BUN/Creatinine Ratio 13.1 (10.0-20.0); Carbon Dioxide 27 mmol/L (20-31); Chloride 100 mmol/L (98-107); Glucose 100 mg/dL (74-106); Potassium 3.8 mmol/L (3.5-5.1)
[2024-12-12 05:53] LABS: Albumin 2.3 g/dL (3.2-4.8); Alkaline Phosphatase 825 U/L (46-116); Aspartate Aminotransferase 76 U/L (13-40); Blood Urea Nitrogen 48 mg/dL (9-23); Sodium 133 mmol/L (136-145); Total Protein 5.3 g/dL (5.7-8.2)
[2024-12-12 06:21] LABS: Band Neutrophils % (manual) 10; Lymphocytes % (manual) 34 (10.0-50.0); Monocytes % (manual) 38 (0-12); Myelocytes % 1
[2024-12-12 06:22] LABS: Anisocytosis Slight; Ovalocytes FEW; Platelet Estimate Decreased
[2024-12-12] MEDS: Ensure Enlive Strawberry 8oz Bottle PO SCH (08:00)
[2024-12-12] MEDS: B-COMPLEX W/ C & FOLIC ACID(NEPHROVITE TAB) PO SCH (09:17)
[2024-12-12] MEDS: Juven Orange Powder PACKET 27.5gm PO SCH (09:23)
[2024-12-12] MEDS: ERGOCALCIFEROL 50,000 UNIT(1.25MG) CAP PO SCH (09:38)
--- NOTE | 2024-12-12 09:55 | DVHPN2 ---
Progress Note - Dictate Date Seen: Dec 12, 2024 Has the PT tested + for MRSA If YES, has PT been informed?: No Medical Necessity Reason Pt with a Central, PICC or Fol: Yes The following are medically ne: Pond Catheter Reason for pond catheter: Bladder Retention/Obstruc, Strict I&O Subjective Mr. Narciso White is a 59 years old right-handed gentleman with a history of hypertension, diabetes, dyslipidemia, coronary artery disease, heart attack, recent CABG, he was taken to the [facility] on 12/03/2024 with a chief company of fever. But he was also developed acute stroke syndrome I have seen and examined the patient, discussed with his nurse, sedated he was much stronger today, awake, oriented x3 He was going through hemodialysis Bone marrow biopsy on 12/11/2024 WBC is 1 today UDS, 12/04/2024: Negative Urinalysis, 12/04/2024: WBC: 1, urine leukocyte esterase: Negative WBC/HB/PLT/MCV, 12/06/2024: 0.6/7.8/147/84.5 12/07/2024: 0.8/8.2/141/84.2 PTT/INR/PTT, 12/05/2024: 12.4/1.19/37.2 BUN/CR, 12/06/2024: 82/3.64, 12/12/2024: 48/3.67 HGB A1c, 12/04/2024: 5.9 TBI/AST/ALT/AP, 12/06/2024: 1.5/68/37/454, 12/10/2024: 3.5/88/36/616 12/12/2024: 5/76/29/825 TG/HDL/LDL/HDL, 12/06/2024: 138/79/20/11, 12/07/2024: 141/77/20/9 Vitamin B12, 11/2024: 1395 TSH, 11/2024: 0.7 SIFE, 12/06/2024: Iron/TIBC/Sat, 12/10/2024: 34/123/27.5 Ferritin, 12/10/2024: >3300 Bone marrow biopsy (12/11/24) Carotid Doppler, 12/07/2024: No hemodynamically significant stenosis within the carotid arteries Echocardiogram, 12/05/2024: Sinus rhythm. Left atrial enlargement with dilation of the sinuses of Valsalva. Mild RV enlargement. Moderate aortic sclerosis with diminished excursion of the leaflets and calcification of what appears to be the right and non coronary cusps. From the short axis view there does not appear to be limitation in motion. Normal pulmonic valve. Left ventricular function appears preserved. EF of about 50% with normal RV function. The tricuspid is normal. Doppler reveals some mild to moderate TR. No pericardial effusion masses or vegetations EMILY, 12/07/2024: Normal chamber dimensions. Valves appear to be structurally normal. Normal aortic mitral tricuspid and pulmonic valves Left ventricular function was preserved at 60% with normal RV function. Doppler reveals mild tricuspid insufficiency. Mild mitral insufficiency. No pericardial effusion masses or vegetations noted. The atrial appendage is normal. There are no thrombi present. Bubble study did not reveal crossover into the left side. Abnormal shunting otherwise present. MRI brain, 12/06/2024: 1. There is a small area of restricted diffusion involving the anterior body / genu of the corpus callosum consistent with an acute to subacute infarct. There is no evidence of acute hemorrhage. There is no mass effect. 2. There are additional scattered punctate foci of restricted diffusion in the bilateral frontal and right parietal lobe deep white matter which may represent tiny foci of acute to subacute infarcts vital signs Vital Sign Date Time Temp Pulse Resp B/P (MAP) Pulse Ox O2 Delivery O2 Flow Rate FiO2 12/12/24 08:00 98.7 78 14 117/65 (82) 97 98.7 12/12/24 06:00 Nasal Cannula* 2 28 Total Intake and Output 12/11/24 12/11/24 12/12/24 15:00 23:00 07:00 Intake Total 103.75 ml 350 ml 290 ml Output Total 40 ml Balance 103.75 ml 350 ml 250 ml medications Current Medications Medications Dose Ordered Sig/Shavon Route Start Time Stop Time Status Last Admin Dose Admin Acetaminophen 650 mg Q6HP PRN PO 12/04/24 03:30 12/11/24 23:28 650 MG Ondansetron HCl 4 mg Q4HP PRN IV 12/04/24 03:30 Diagnostic Test (Pha) 1 strip ACHS 12/04/24 07:00 12/12/24 06:37 1 STRIP Pantoprazole Sodium 40 mg BID IV 12/04/24 06:45 12/12/24 09:18 40 MG Acetaminophen/ Hydrocodone Bitart 1 tab Q4HPRN PRN PO 12/04/24 14:30 12/10/24 20:25 1 TAB Morphine Sulfate 1 mg Q4HPRN PRN IV 12/04/24 14:30 Tamsulosin HCl 0.4 mg QPM PO 12/04/24 18:00 12/11/24 18:40 0.4 MG Metoprolol Succinate 25 mg DAILY PO 12/05/24 10:00 Hold 12/09/24 09:30 25 MG Meropenem 50 ml @ 17 mls/hr Q12HR IV 12/05/24 22:00 12/12/24 09:19 17 MLS/HR Norepinephrine Bitartrate 250 ml @ 3.75 mls/hr Q24H IV 12/05/24 18:15 12/11/24 10:10 3.75 MLS/HR Calcium Acetate 1,334 mg TIDWMEALS PO 12/08/24 12:00 12/12/24 09:17 1,334 MG Tbo-Filgrastim 300 mcg DAILY SC 12/08/24 12:30 12/12/24 09:27 300 MCG Albumin Human 100 ml @ 100 mls/hr BETTYE IV 12/09/24 10:30 12/09/24 12:11 100 MLS/HR Micafungin Sodium 100 mg/Sodium Chloride 100 ml @ 100 mls/hr DAILY IV 12/10/24 10:00 12/12/24 09:19 100 MLS/HR Gabapentin 200 mg HS PO 12/10/24 22:00 12/11/24 21:12 200 MG Nystatin 5 ml QID MT 12/10/24 16:00 12/12/24 06:02 5 ML Daptomycin 0 ml @ 0 mls/hr PER PHARMACY IV 12/10/24 20:30 Daptomycin 500 mg/ Sodium Chloride 50 ml @ 100 mls/hr Q48H IV 12/11/24 15:00 12/11/24 16:17 100 MLS/HR Enteral Nutritional Formula 240 ml BIDWM PO 12/12/24 08:00 12/12/24 08:00 240 ML Multivit/Ca Carb/ B Cmplx/FA/Prenat 1 tab DAILY PO 12/12/24 10:00 12/12/24 09:17 1 TAB Enteral Nutritional Formula 27.5 gm DAILY PO 12/12/24 10:00 12/12/24 09:23 27.5 GM Ergocalciferol 50,000 unit Q7D PO 12/12/24 08:45 12/12/24 09:38 50,000 UNIT objective General: the patient is well developed and nourished. No acute distress. MENTAL STATUS: Subjective SPEECH, LANGUAGE, HIGHER CORTICAL FUNCTION: no aphasia or dysathria. CRANIAL NERVES: Pupils are equal, round and reactive. EOMs full and conjugate. No nystagmus. Facial sensation intact in all three divisions bilaterally. Mandibular strength intact. Facial muscles symmetrical and strength intact. SENSATION: Sensation to touch and pinprick is diminished distally in the lower extremities, but no [id number] differences MOTOR: Normal tone in the upper and lower extremity. Normal muscle bulk. No fasciculations. No abnormal movements or posturing. Muscle strength of the major groups in the upper extremities is: close to 4/5. He can move both legs, muscle power feels 3-4/5. REFLEXES: Deep tendon reflexes are symmetrical. No pathological reflexes. CEREBELLAR/COORDINATION: No ataxia in the upper extremities GAIT/STATION: deferred. laboratory and microbiology Laboratory Tests 12/12/24 05:04 Test 12/12/24 05:04 Range/Units Serum Glucose 100 74-106 mg/dL Problem List Recent acute stroke with left-sided weakness Acute stroke syndrome MRI evident multiple acute strokes (11/08/2024) Pancytopenia/rule out malignancy Anemia Fever/sepsis Septic shock Coronary artery disease with recent CABG Diabetic polyneuropathy Restless leg syndrome Anemia Elevated liver function tests Assessment/Plan Monitoring Supportive treatment Follow-up lipid profile LINDA Care IV antibiotics Aspirin 81 mg daily Lipitor 75 mg daily Gabapentin 200 mg in the evening Physical therapist GI prophylaxis Up to chair He was aware of neuropathy related foot care More recommendation per clinical course This medical document was created using an electronic medical record system with [employer] system. Although this document has been carefully reviewed, there may still be some phonetic and typographical errors. These areas are purely typographical due to imperfections of the software programs, and do not reflect any compromise in the patient's medical care. Prognosis poor Dietary Evaluation Review Comments: 1) Ergocalciferol 50,000IU weekly 2) Jose L 1 pk daily, MVI w/ mineral 1 tab, Vit C 500mg BID, Zinc sulfate 220mg daily x 10 days 3) Advance to [id number] + renal special 80gm protein diet 4) Continue current plan of care Expected Outcomes/Goals: Advance diet to meet at least 75% estimated needs FU 2-3 days Plan discussed with: Other CC Plasma Assessment Blood Product Administration S: 11:05 NIKOLAS PRATT MD Dec 12, 2024 09:55
--- NOTE | 2024-12-12 14:19 | DVHINCON2 ---
Date of service: Dec 12, 2024 Family History: Cardiovascular disease G8 MOTHER G8 FATHER FH: alcohol abuse G8 FATHER FHx: lung disease G8 FATHER Sepsis Suicide G8 MOTHER Allergies: Coded Allergies: Shellfish Allergy (Verified Allergy, Unknown, 12/10/24) Uncoded Allergies: Fish, ShellFish, Milk (Allergy, Unknown, 11/01/24) Home Meds Active Scripts Clopidogrel Bisulfate (Plavix) 75 Mg Tab, 1 TAB PO DAILY for 21 Days, #21 TAB 1 Refill Prov:MARIA C DÍAZ [employer] 11/06/24 Tramadol HCl (Tramadol HCl) 50 Mg Tab, 50 MG PO Q8HP PRN for 5 Days, #15 TAB Prov:MARIA C DÍAZ [employer] 11/06/24 Reported Medications Lisinopril (Lisinopril) 10 Mg Tab, 1 TAB PO DAILY 12/04/24 Benzonatate (Benzonatate) 100 Mg Cap, 1 CAP PO TID 12/04/24 Tramadol Hcl (Tramadol Hcl) 50 Mg Tab, 1 TAB PO Q8HPRN PRN 12/04/24 Atorvastatin Calcium (ATORVASTATIN CALCIUM) 80 Mg Tab, 80 HS 12/04/24 Metoprolol Succinate (Metoprolol Succinate Er) 25 Mg Tab, 1 TAB PO DAILY 12/04/24 Clopidogrel Bisulfate (CLOPIDOGREL) 75 Mg Tab, 1 TAB PO DAILY 12/04/24 Tamsulosin Hcl (Tamsulosin Hcl) 0.4 Mg Cap, 0.4 MG PO QPM for 30 Days, MG 11/02/24 Metoprolol Tartrate (Metoprolol Tartrate) 25 Mg Tab, 0.5 TAB PO BID, #180 TAB 1 Refill 11/02/24 Melatonin (KP MELATONIN) 3 Mg Tab, 1 TAB PO QPM, #30 TAB 2 Refills 11/02/24 Heparin Sodium (Porcine) (Heparin Sodium) 5,000 Unit/0.5 Ml Inj, 5000 UNIT IJ, INJ 11/02/24 Furosemide (Lasix) 20 Mg Tb, 1 TAB PO BID, #90 TAB 1 Refill 11/02/24 Famotidine (Famotidine) 20 Mg Tab, 20 MG PO BID for 30 Days, MG 11/02/24 Aspirin (Aspirin) 81 Mg Chw, 81 MG PO, TAB.CHEW 11/02/24 Atorvastatin Calcium (Lipitor) 80 Mg Tab, 1 TAB PO DAILY, #30 TAB 5 Refills 11/02/24 Metformin Hydrochloride (Metformin Hcl) 500 Mg Tab, 500 MG PO DAILY for 30 Days, MG 11/01/24 Atorvastatin Calcium (ATORVASTATIN CALCIUM) 10 Mg Tab, 10 MG PO DAILY, TAB 11/01/24 Lisinopril (Lisinopril) 10 Mg Tab, 1 TAB PO DAILY for 60 Days, #60 10/11/24 Current Medications Current Medications Medications (Trade) Dose Ordered Sig/Shavon Route PRN Reason Start Time Stop Time Status Last Admin Daptomycin 500 mg/ Sodium Chloride 50 ml @ 100 mls/hr Q48H IV 12/11/24 15:00 12/11/24 16:17 Enteral Nutritional Formula (Ensure Enlive) 240 ml BIDWM PO 12/12/24 08:00 Multivit/Ca Carb/ B Cmplx/FA/Prenat (Nephro-Leann Tablet) 1 tab DAILY PO 12/12/24 10:00 12/12/24 09:17 Enteral Nutritional Formula (Jose L [place] Powder PACKET) 27.5 gm DAILY PO 12/12/24 10:00 12/12/24 09:23 Ergocalciferol (Vitamin D 50,000 Unit) 50,000 unit Q7D PO 12/12/24 08:45 12/12/24 09:38 Vital Signs Vital Signs Date Time Temp Pulse Resp B/P (MAP) Pulse Ox O2 Delivery O2 Flow Rate FiO2 12/12/24 12:00 99.0 88 17 104/59 (74) 98 99.0 12/12/24 06:00 Nasal Cannula* 2 28 Labs/Diagnostic Data Labs Test 12/12/24 13:20 12/12/24 05:04 12/11/24 19:55 12/11/24 11:21 Range/Units White Blood Count 1.0 *L 4.4-10.8 10^3/uL Red Blood Count 2.88 L 4.5-5.90 10^6/uL Hemoglobin 8.0 L 13.5-17.5 g/dL Hematocrit 23.9 L 41.0-53.0 % Mean Corpuscular Volume 82.9 80.0-100.0 fL Mean Corpuscular Hemoglobin 27.8 L 28.0-32.0 pg Mean Corpuscular Hemoglobin Concent 33.5 32.0-36.0 g/dL Red Cell Distribution Width 17.2 H 11.8-14.3 % Platelet Count 71 L 140-450 10^3/uL Mean Platelet Volume 10.0 6.9-10.8 fL Neutrophils (%) (Auto) 37.0-80.0 % Lymphocytes (%) (Auto) 10.0-50.0 % Monocytes (%) (Auto) 0.0-12.0 % Basophils (%) (Auto) 0.0-2.0 % Neutrophils # (Auto) 1.6-8.6 10 ^3/uL Lymphocytes # (Auto) 0.4-5.4 10 ^3/uL Monocytes # (Auto) 0-1.3 10 ^3/uL Differential Total Cells Counted 100.0 100 Neutrophils % (Manual) 17 L 37.0-80.0 Band Neutrophils % (Manual) 10 Lymphocytes % (Manual) 34 10.0-50.0 Monocytes % (Manual) 38 H 0-12 Eosinophils % (Manual) 0 0-7 Basophils % (Manual) 0 0.0-2.0 Metamyelocytes % (manual) 0 Myelocytes % (Manual) 1 Promyelocytes % (Manual) 0 Blast Cells % (Manual) 0 Reactive Lymphocytes 0 Platelet Estimate Decreased Anisocytosis (manual) Slight Ovalocytes Few [place] Cells Few Sodium Level 133 L 136-145 mmol/L Potassium Level 3.8 3.5-5.1 mmol/L Chloride Level 100 98-107 mmol/L Carbon Dioxide Level 27 20-31 mmol/L Anion Gap 6 5-15 Blood Urea Nitrogen 48 #H 9-23 mg/dL Creatinine 3.67 H 0.700-1.30 mg/dL Glomerular Filtration Rate Calc 18 >90 mL/min BUN/Creatinine Ratio 13.1 10.0-20.0 Serum Glucose 100 74-106 mg/dL Calcium Level 8.0 L 8.7-10.4 mg/dL Total Bilirubin 5.0 H 0.2-1.0 mg/dL Aspartate Amino Transferase (AST) 76 H 13-40 U/L Alanine Aminotransferase (ALT) 29 7-40 U/L Alkaline Phosphatase 825 H 46-116 U/L Total Protein 5.3 L 5.7-8.2 g/dL Albumin 2.3 L 3.2-4.8 g/dL POC Glucose 93 70-106 mg/dl Test 12/11/24 04:57 12/10/24 21:48 12/10/24 05:00 12/08/24 18:30 Range/Units Large Platelets Few Random Vancomycin Level 15.6 H 5-10 ug/mL Gamma Glutamyl Transpeptidase 400 H <73 U/L Creatine Kinase 56 46-171 U/L HIV (1&2) Antibody Negative Negative Eosinophils (%) (Auto) 1.1 0.0-7.0 % Eosinophils # (Auto) 0 0-0.8 10 ^3/uL Basophils # (Auto) 0 0-0.2 10 ^3/uL Nucleated Red Blood Cells 0.4 % Prothrombin Time 13.2 H 9.3-11.8 sec Prothrombin Time INR 1.28 H 0.9-1.15 Activated Partial Thromboplast Time 45.6 H 24.5-34.5 SEC Iron Level 34 L 65-175 ug/dL Total Iron Binding Capacity 123 L 250-425 ug/dL Percent Iron Saturation 27.6 20-55 % Ferritin > 3300.0 H 22-322 ng/mL Urine Color Yellow Yellow Urine Clarity Turbid H Clear Urine pH 5.0 5.0-9.0 Urine Specific [place] 1.014 1.001-1.035 Urine Protein 1+ H Negative Urine Ketones Negative Negative Urine Blood 3+ H Negative /uL Urine Nitrite Negative Negative Urine Bilirubin Negative Negative Urine Urobilinogen Normal Negative mg/dL Urine Leukocyte Esterase Negative Negative /uL Urine RBC 252 0 - 3 /hpf Urine Microscopic WBC 6 H 0-3 /HPF Urine Squamous Epithelial Cells None seen <5 /hpf Urine Bacteria None seen None Seen /hpf Urine Glucose Normal Normal mg/dL Test 12/08/24 05:04 12/07/24 20:15 12/07/24 13:55 12/07/24 04:47 Range/Units Lactic Acid Level 1.0 0.4-2.0 mmol/L Phosphorus Level 6.5 H 2.4-5.1 mg/dL Magnesium Level 2.7 H 1.6-2.6 mg/dL B-Type Natriuretic Peptide 374.68 0-100 pg/mL Hepatitis A IgM Antibody Negative Hepatitis B Surface Antigen Negative Negative Hepatitis B Core IgM Antibody Negative Negative Hepatitis C Antibody Negative Negative Triglycerides Level 141 < 150 mg/dL Cholesterol Level 77 < 200 mg/dL LDL Cholesterol 20 < 100 mg/dL HDL Cholesterol 9 L 40-59 mg/dL Hepatitis B Core Total Antibody Negative Negative Test 12/07/24 01:00 12/06/24 10:37 12/06/24 04:40 12/05/24 21:10 Range/Units Stool Occult Blood Negative Negative Anti-Cyclic Citrullinated Peptide 7 0-19 units Anti-Nuclear Antibody Screen Negative Negative Cytomegalovirus IgG Antibody >10.00 H 0.00-0.59 U/mL Cytomegalovirus IgM Antibody <30.0 0.0-29.9 AU/mL Christine-Deshpande Virus Capsid Ag IgG Ab >600.0 H 0.0-17.9 U/mL Lactate Dehydrogenase 322 H 120-246 U/L Thyroid Stimulating Hormone (TSH) 0.70 0.55-4.78 uIU/mL Hepatitis B Surface Antibody Negative Negative Troponin I High Sensitivity 70 *H </=54 ng/L Test 12/05/24 18:37 12/05/24 18:30 12/05/24 12:11 12/05/24 05:13 Range/Units Schistocytes Few Blood Gas Specimen Type Arterial Blood Gas Sample Site Right radial Blood Gas Patient Temperature 37.0 Arterial Blood Date Drawn [id number] Arterial Blood pH 7.438 7.350-7.450 Arterial Blood Partial Pressure CO2 27.0 L 35.0-48.0 mmHg Arterial Blood Partial Pressure O2 78.8 L 83.0-108.0 mmHg Arterial Blood HCO3 17.8 L 21.0-28.0 mmol/L Arterial Blood Oxygen Saturation 94.5 94.0-98.0 % Arterial Blood Base Excess -5.4 L -2.0-3.0 mmol/L Arterial Blood Oxyhemoglobin 93.4 L 94.0-98.0 % Arterial Blood Carboxyhemoglobin 0.3 L 0.5-1.5 % Arterial Blood Methemoglobin 0.9 0.0-1.5 % Khadar Test Modified Blood Gas Total Hemoglobin 8.60 L 13.5-17.5 g/dL Blood Gas Liter Flow 6.00 Blood Gas Modality Nasal cannula FiO2 % 44.0 Erythrocyte Sedimentation Rate 88 H 0-20 mm/hr C-Reactive Protein High Sensitivity 15.65 H <1.0 mg/dL Test 12/04/24 16:50 12/04/24 07:00 12/04/24 05:30 12/04/24 04:50 Range/Units Urine Amorphous Crystals Few None Seen /hpf Urine Creatinine 70.59 30.0-125.0 mg/dL Urine Protein/Creatinine Ratio 1.84 Urine Sodium 23 L 40-220 mmol/L Urine Total Protein 129.7 H 1-14 mg/dL Urine Opiates Screen Neg NEGATIVE Urine Fentanyl Screen Neg NEGATIVE Urine Barbiturates Screen Neg NEGATIVE Urine Phencyclidine Screen Neg NEGATIVE Urine Amphetamines Screen Neg NEGATIVE Urine Benzodiazepines Screen Neg NEGATIVE Urine Cocaine Screen Neg NEGATIVE Urine Cannabinoids Screen Neg NEGATIVE Reticulocyte Count (auto) 0.77 0.5-1.5 % D-Dimer, Quantitative 3.43 H 0.0-0.49 mg/L FEU Parathyroid Hormone (Intact) 15.7 L 18.4-80.1 pg/mL Influenza Type A Antigen Negative Negative Influenza Type B Antigen Negative Negative SARS-CoV-2 Antigen (Rapid) Negative NEGATIVE Hemoglobin A1c 5.9 H <5.7 % A1C Vitamin B12 Level 1395 H 211-911 pg/mL Vitamin D 25-Hydroxy 11.9 L 30.0-100 ng/mL Microbiology Date/Time Source Procedure Growth Status 12/11/24 15:31 Sputum Gram Stain - Final Resulted 12/11/24 15:31 Sputum Respiratory Culture - Preliminary Resulted 12/10/24 10:17 Sacrum Gram Stain - Final Resulted 12/10/24 10:17 Sacrum Wound Culture - Preliminary Resulted 12/10/24 10:17 Voided Urine Urine Culture - Preliminary Resulted 12/08/24 14:39 Blood Blood Culture - Preliminary NO GROWTH AFTER 72 HOURS OF INCUBATION. Resulted Assessment [id number] AFEBRILE VSS RECENT STROKE NON HEALING SUPERFICIAL LOW BACK WOUND CONTINUE LOCAL WOUND CARE CONSIDER TISSUE DEBRIDEMENT BASED ON ONGOING EVAL Plan discussed with: Other SPEEDY DOYLE MD Dec 12, 2024 14:19
--- NOTE | 2024-12-12 15:19 | DVHINCON2 ---
DATE OF CONSULTATION: 12/12/2024 HISTORY OF PRESENT ILLNESS: This patient is 59 years old, unable to give adequate history. Most of the information obtained from the chart. I was asked to see regarding a low back wound. He has past medical history of AK, diabetes, hypertension, status post quadruple bypass and a recent ischemic stroke, who presented to the Emergency Room with fever and transferred to [place] for CABG later in . He presented to the [facility] due to weakness from his baseline. An MRI revealed acute ischemia involving bilateral cerebral white matter, and with his CABG and stroke, he was admitted and was not able to walk and then he was followed up in the ICU. I was asked to see him with regard to a nonhealing low back wound. PAST MEDICAL HISTORY: Diabetes, hypertension, AK, significant CAD, recent CVA. PAST SURGICAL HISTORY: Quadruple bypass on 10/21/2004. PHYSICAL EXAMINATION: VITAL SIGNS: Afebrile, stable signs. HEENT: With no evidence of pallor, cyanosis, or jaundice. NECK: Supple, nontender with no thyromegaly, lymphadenopathy. CHEST AND LUNGS: Clear. HEART: Within normal limits. ABDOMEN: Soft. NEUROLOGIC: Not assessed. EXTREMITIES: Unremarkable. Low back wound is nonhealing wound, it is superficial. CLINICAL IMPRESSION: He does not need urgent surgical intervention at this time. He needs local wound care and consider tissue debridement based upon ongoing evaluation. CC: MD DEBORAH Anderson/MITA/AYANA TID: [id number] RECEIPT: [id number]
--- NOTE | 2024-12-12 15:36 | DVHPNRES ---
Progress Note Date Seen: Dec 12, 2024 Resident Creating Document: KAMILLE VÁSQUEZ RESIDENT Has the PT tested + for MRSA If YES, has PT been informed?: No Medical Necessity Reason Pt with a Central, PICC or Fol: Yes The following are medically ne: Pond Catheter Reason for pond catheter: Bladder Retention/Obstruc, Strict I&O Subjective Review of Systems Mr. Vu is a 59-year-old male with a past medical history of coronary artery disease status post CABG in October 2024, ischemic stroke oct 2024, status post bed bound and chronic indwelling Pond, hypertension, and hyperlipidemia. He was brought to the ER by the family with a chief complaint of heavy breathing, fever, chills, and anuria for the past 3 days. Per the daughter at bedside, the patient had never followed up with urology or cardiology after he was discharged from this facility on 11/07/24. He usually makes 1600 cc of urine a day. Per daughter, patient has a wound in his back and is also draining a white pus-like substance. Patient also reported dysuria and abdominal discomfort. He also reports heavy breathing and mild nonproductive cough. On arrival, patient was febrile at 101.2F, tachycardic, blood pressure 144/77, and requiring 4 L oxygen supplementation. White cell count was 3.6, hemoglobin 8.8, and hematocrit 23. Patient had hyperkalemia, potassium was 6 which downtrended to 5.4. Creatinine was 2.9 and BUN 77. Patient's Pond catheter was removed in ED after being in place for more than a month, the patient does not urinate on his own, bladder scan showed empty bladder, nephrology was consulted. Chest x-ray shows bibasilar consolidation. The patient has mildly elevated transaminases. 12/05/[address] findings of substernal soft tissue density: new echo ordered, azithromycin was added to cover atypicals and hyperkalemia protocol was done, patient is having febrile neutropenia, CT scan of abdomen showed right groin lymphadenopathy, lymphadenopathy biopsy was done. 1 RBC was transfused per cardiology. 12/06/24 at 5:30 pm, patient had an episode of AMS, weakness, and hypotension, increased left leg weakness and left facial droop. CT scan negative for stroke or hemorrhage, patient was placed on Levophed and weaned off at 8 pm, fluids IV 100 cc during the night, today x-ray showed mild congestion. IV fluids reduced to 60cc and furosemide IV was started. New MRI showed multiple small strokes in different places; probably cardiembolic etiology. Neurology Dr. Cabral, stated no need for CTA or thrombectomy, also transfer to [facility] was planned but according to the center he had his CABG, patient can be managed in [facility]. Also, nephrology consulted. 12/07/24: EMILY was ordered and will be done today. Worsening renal function; nephrology will discuss possible hemodialysis with the patient and his family. 12/08/24: EMILY negative, neupogen started, patient had fever last night, new pancultures, renal function is trending high, dialysis catheter placed on the left, new K normal on place, possible HD today. 12/10/24: Stop plavix, patient continues to have fevers, cultures prelim negative, pending bone marrow biopsy. 12/11/24: ID was consulted, vancomycin was changed for daptomycin, further studies were ordered to study possible source of infection, WBC is trending high, last fever 12/10 4pm, HD was done but patient needed levophed 2mcg, bilirubin is trending high, EPO was started by Nephro 12/12/24: lymph node biopsy: Hodgkin lymphoma, diagnosis disccused with family, patient still having fevers and diarrhea, necrotic ulcer assessed by dr Jacinto no need of intervention. Objective vital signs Vital Sign Date Time Temp Pulse Resp B/P (MAP) Pulse Ox O2 Delivery O2 Flow Rate FiO2 12/12/24 12:00 99.0 88 17 104/59 (74) 98 99.0 12/12/24 06:00 Nasal Cannula* 2 28 Total Intake and Output 12/11/24 12/11/24 12/12/24 15:00 23:00 07:00 Intake Total 103.75 ml 350 ml 290 ml Output Total 40 ml Balance 103.75 ml 350 ml 250 ml medications Current Medications Medications Dose Ordered Sig/Shavon Route Start Time Stop Time Status Last Admin Dose Admin Acetaminophen 650 mg Q6HP PRN PO 12/04/24 03:30 12/11/24 23:28 650 MG Ondansetron HCl 4 mg Q4HP PRN IV 12/04/24 03:30 Diagnostic Test (Pha) 1 strip ACHS 12/04/24 07:00 12/12/24 11:17 1 STRIP Pantoprazole Sodium 40 mg BID IV 12/04/24 06:45 12/12/24 09:18 40 MG Acetaminophen/ Hydrocodone Bitart 1 tab Q4HPRN PRN PO 12/04/24 14:30 12/10/24 20:25 1 TAB Morphine Sulfate 1 mg Q4HPRN PRN IV 12/04/24 14:30 Tamsulosin HCl 0.4 mg QPM PO 12/04/24 18:00 12/11/24 18:40 0.4 MG Metoprolol Succinate 25 mg DAILY PO 12/05/24 10:00 Hold 12/09/24 09:30 25 MG Meropenem 50 ml @ 17 mls/hr Q12HR IV 12/05/24 22:00 12/12/24 09:19 17 MLS/HR Norepinephrine Bitartrate 250 ml @ 3.75 mls/hr Q24H IV 12/05/24 18:15 12/11/24 10:10 3.75 MLS/HR Calcium Acetate 1,334 mg TIDWMEALS PO 12/08/24 12:00 12/12/24 09:17 1,334 MG Tbo-Filgrastim 300 mcg DAILY SC 12/08/24 12:30 12/12/24 09:27 300 MCG Albumin Human 100 ml @ 100 mls/hr BETTYE IV 12/09/24 10:30 12/09/24 12:11 100 MLS/HR Micafungin Sodium 100 mg/Sodium Chloride 100 ml @ 100 mls/hr DAILY IV 12/10/24 10:00 12/12/24 09:19 100 MLS/HR Gabapentin 200 mg HS PO 12/10/24 22:00 12/11/24 21:12 200 MG Nystatin 5 ml QID MT 12/10/24 16:00 12/12/24 14:36 5 ML Daptomycin 0 ml @ 0 mls/hr PER PHARMACY IV 12/10/24 20:30 Daptomycin 500 mg/ Sodium Chloride 50 ml @ 100 mls/hr Q48H IV 12/11/24 15:00 12/11/24 16:17 100 MLS/HR Enteral Nutritional Formula 240 ml BIDWM PO 12/12/24 08:00 Multivit/Ca Carb/ B Cmplx/FA/Prenat 1 tab DAILY PO 12/12/24 10:00 12/12/24 09:17 1 TAB Enteral Nutritional Formula 27.5 gm DAILY PO 12/12/24 10:00 12/12/24 09:23 27.5 GM Ergocalciferol 50,000 unit Q7D PO 12/12/24 08:45 12/12/24 09:38 50,000 UNIT Examination General: Afebrile, palor, mucosae are moist Cardiovascular: sternal wound clean, sternum stable, regular S1 and S2. No murmurs, gallops or rubs. No JVD elevation. No pedal edema. HD cath placed Respiratory: Normal B/L air entry on 2 L NC. Clear lung sounds on auscultation Abdomen: Soft, nontender, nondistended, normoactive bowel sounds, no rebound tenderness, no organomegaly, no masses. Neurological: Residual left lower extremity weakness.. Pupils are isocoric and reactive. Psych/Mental Status: A/Ox3 Patient has a stage II sacral decubitus ulcer, necrotic laboratory and microbiology Laboratory Tests 12/12/24 05:04 Test 12/12/24 05:04 Range/Units Serum Glucose 100 74-106 mg/dL Microbiology Date/Time Source Procedure Growth Status 12/11/24 15:31 Sputum Gram Stain - Final Resulted 12/11/24 15:31 Sputum Respiratory Culture - Preliminary Resulted 12/10/24 10:17 Sacrum Gram Stain - Final Resulted 12/10/24 10:17 Sacrum Wound Culture - Preliminary Resulted 12/10/24 10:17 Voided Urine Urine Culture - Preliminary Resulted 12/08/24 14:39 Blood Blood Culture - Preliminary NO GROWTH AFTER 72 HOURS OF INCUBATION. 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 Manager on board Neupogen 5 days today: wbc stable Dr Pastor stated that the patient will need chemotherapy when he is stable as outpatient Neurology #Acute metabolic/hypoxic encephalopathy due to stroke and sepsis #Possible acute cardioembolic stroke: corpus callosum, bilateral frontal and right parietal #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 There is no evidence of acute hemorrhage. There is no mass effect. There are additional scattered punctate foci of restricted diffusion in the bilateral frontal and right parietal lobe deep white matter which may represent tiny foci of acute to subacute infarcts. Bran MRI oct 2024: There prominent diffusion restriction also seen within the genu and anterior body of the corpus callosum. There is an apparent punctate additional focus of diffusion restriction in the medulla Neurology on board Aspirin continue Continue atorvastatin 40 mg EMILY normal Carotid duplex: No hemodynamically significant stenosis within the carotid arteries Pregabalin trial per neuro Need of PT Cardiology #Severe coronary artery disease status post triple-vessel CABG #Substernal soft tissue density likely secondary to recent CABG #Possible acute on Chronic HFpEF, NYHA class III Cardiology signed off 12/05/24 ECHO: Left atrial enlargement with dilation of the sinuses of Valsalva. Mild RV enlargement. Moderate aortic sclerosis with diminished excursion of the leaflets and calcification of what appears to be the right and non coronary cusps. Left ventricular function appears preserved. EF of about 50% with normal RV function. The tricuspid is normal. Doppler reveals some mild to moderate TR. No pericardial effusion masses or vegetations. 12/04/24: Substernal soft tissue density and stranding without a large fluid collection. Fat stranding is nonspecific and should be correlated with timing of surgery. Alternatively this could reflect an infectious or inflammatory etiology. Small bilateral pleural effusions and passive atelectasis. Cardiomegaly. 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 Trace ascites. Partially visualized trace right pleural effusion. Gallbladder polyps measuring up to 0.4 cm FOB negative MRCP negative for acute pathology GGT high, AP high, bilirubins are trending high Metamucil Renal #GOPAL due to septic shock #ESRD #Dialysis urgency #Severe fluid overload #Hyperkalemia secondary to CKD #Hyperparathyroidism #Mixed base disorder: respiratory alkalosis and metabolic acidosis #Chronic indwelling Pond Urine culture came negative Heat Curer on board HD on the 12/08, 12/09, 12/11 EPO per nephro Infectious #Febrile neutropenia #Septic shock due to possible pneumonia? #Possible septic emboli? #sacral wound #Rule out opportunistic infections #Possible tiflitis EMILY neg Daptomycin + Meropenem + Micafungin Patient had a sacral wound, cultures ordered: prelim yeast and gram + Multiple studies ordered to rule out opportunistic infection on severe immunocompromised patient Last fever 12/11 Dr Jacinto assessed the wound: no need for surgery for now Endocrinology #Hypoglycemia #Prediabetes Diabetic diet Stop insulin Case discussed with Dr Mi Plan discussed with: Patient, Other (rn) My Orders My Orders Orders - KAMILLE VÁSQUEZ RESIDENT Procedure Category Date Status Time Chest Xray 1 View XY 12/12/24 Resulted 04:00 Consistent DIET 12/12/24 Transmitted Carb(Ccho)Diabetes Breakfast B-Complex W/ C & PHA 12/12/24 In Process Folic Tablet 10:00 Nutritional PHA 12/12/24 In Process Supplements (Jose L 10:00 Ergocalciferol PHA 12/12/24 In Process (Vitamin D 50,000 08:45 * Surgical Consult CONS 12/12/24 Transmitted Dietary Evaluation Review Comments: 1) Ergocalciferol 50,000IU weekly 2) Jose L 1 pk daily, MVI w/ mineral 1 tab, Vit C 500mg BID, Zinc sulfate 220mg daily x 10 days 3) Advance to [id number] + renal special 80gm protein diet 4) Continue current plan of care Expected Outcomes/Goals: Advance diet to meet at least 75% estimated needs FU 2-3 days CC Plasma Assessment Blood Product Administration S: 11:05 Date of Service: Dec 12, 2024 Billing Provider: AKILAH MI DO Common Visit Codes: [id number] CARE 30-74 MIN KAMILLE VÁSQUEZ RESIDENT Dec 12, 2024 15:36 AKILAH MI DO Dec 14, 2024 11:44
--- NOTE | 2024-12-12 16:10 | DVHPN2 ---
Progress Note Date Seen: Dec 12, 2024 Has the PT tested + for MRSA If YES, has PT been informed?: No Medical Necessity Reason Pt with a Central, PICC or Fol: Yes The following are medically ne: Pond Catheter Reason for pond catheter: Bladder Retention/Obstruc, Strict I&O Subjective Patient reports: Other Review of Systems: Deferred Objective vital signs Vital Sign Date Time Temp Pulse Resp B/P (MAP) Pulse Ox O2 Delivery O2 Flow Rate FiO2 12/12/24 12:00 99.0 88 17 104/59 (74) 98 99.0 12/12/24 06:00 Nasal Cannula* 2 28 Total Intake and Output 12/11/24 12/11/24 12/12/24 15:00 23:00 07:00 Intake Total 103.75 ml 350 ml 290 ml Output Total 40 ml Balance 103.75 ml 350 ml 250 ml medications Current Medications Medications Dose Ordered Sig/Shavon Route Start Time Stop Time Status Last Admin Dose Admin Acetaminophen 650 mg Q6HP PRN PO 12/04/24 03:30 12/11/24 23:28 650 MG Ondansetron HCl 4 mg Q4HP PRN IV 12/04/24 03:30 Diagnostic Test (Pha) 1 strip ACHS 12/04/24 07:00 12/12/24 11:17 1 STRIP Pantoprazole Sodium 40 mg BID IV 12/04/24 06:45 12/12/24 09:18 40 MG Acetaminophen/ Hydrocodone Bitart 1 tab Q4HPRN PRN PO 12/04/24 14:30 12/10/24 20:25 1 TAB Morphine Sulfate 1 mg Q4HPRN PRN IV 12/04/24 14:30 Tamsulosin HCl 0.4 mg QPM PO 12/04/24 18:00 12/11/24 18:40 0.4 MG Metoprolol Succinate 25 mg DAILY PO 12/05/24 10:00 Hold 12/09/24 09:30 25 MG Meropenem 50 ml @ 17 mls/hr Q12HR IV 12/05/24 22:00 12/12/24 09:19 17 MLS/HR Norepinephrine Bitartrate 250 ml @ 3.75 mls/hr Q24H IV 12/05/24 18:15 12/11/24 10:10 3.75 MLS/HR Calcium Acetate 1,334 mg TIDWMEALS PO 12/08/24 12:00 12/12/24 09:17 1,334 MG Tbo-Filgrastim 300 mcg DAILY SC 12/08/24 12:30 12/12/24 09:27 300 MCG Albumin Human 100 ml @ 100 mls/hr BETTYE IV 12/09/24 10:30 12/09/24 12:11 100 MLS/HR Micafungin Sodium 100 mg/Sodium Chloride 100 ml @ 100 mls/hr DAILY IV 12/10/24 10:00 12/12/24 09:19 100 MLS/HR Gabapentin 200 mg HS PO 12/10/24 22:00 12/11/24 21:12 200 MG Nystatin 5 ml QID MT 12/10/24 16:00 12/12/24 14:36 5 ML Daptomycin 0 ml @ 0 mls/hr PER PHARMACY IV 12/10/24 20:30 Daptomycin 500 mg/ Sodium Chloride 50 ml @ 100 mls/hr Q48H IV 12/11/24 15:00 12/11/24 16:17 100 MLS/HR Enteral Nutritional Formula 240 ml BIDWM PO 12/12/24 08:00 Multivit/Ca Carb/ B Cmplx/FA/Prenat 1 tab DAILY PO 12/12/24 10:00 12/12/24 09:17 1 TAB Enteral Nutritional Formula 27.5 gm DAILY PO 12/12/24 10:00 12/12/24 09:23 27.5 GM Ergocalciferol 50,000 unit Q7D PO 12/12/24 08:45 12/12/24 09:38 50,000 UNIT laboratory and microbiology Laboratory Tests 12/12/24 05:04 Test 12/12/24 05:04 Range/Units Serum Glucose 100 74-106 mg/dL Microbiology Date/Time Source Procedure Growth Status 12/11/24 15:31 Sputum Gram Stain - Final Resulted 12/11/24 15:31 Sputum Respiratory Culture - Preliminary Resulted 12/10/24 10:17 Sacrum Gram Stain - Final Resulted 12/10/24 10:17 Sacrum Wound Culture - Preliminary Resulted 12/10/24 10:17 Voided Urine Urine Culture - Preliminary Resulted 12/08/24 14:39 Blood Blood Culture - Preliminary NO GROWTH AFTER 72 HOURS OF INCUBATION. Resulted Problem List/Assessment/Plan Problem List/Assessment/Plan Acute kidney injury due to sepsis +urinary obstruction now needing HD subacute Gopal patient noted to have severe GOPAL post CABG 10/2024 Chronic kidney disease stage IIIB 09/2024 GFR 44 pancytopenia s/p BM biopsy 12/10/24 anemia status post PRBC Sepsis secondary to urinary tract infection Chronic urinary retention Pond catheter was removed by ER on this admission -> replaced Hyperkalemia Chronic CVA w/ residual left sided weakness Acute TIA (12/05/24) due to hypotension --GOPAL hemodynamic requiring HD , first treatment 12/08 recs HD tomorrow s/p BM and Lymph node biopsy will f/u Plan discussed with: Other Dietary Evaluation Review Comments: 1) Ergocalciferol 50,000IU weekly 2) Jose L 1 pk daily, MVI w/ mineral 1 tab, Vit C 500mg BID, Zinc sulfate 220mg daily x 10 days 3) Advance to [id number] + renal special 80gm protein diet 4) Continue current plan of care Expected Outcomes/Goals: Advance diet to meet at least 75% estimated needs FU 2-3 days CC Plasma Assessment Blood Product Administration S: 11:05 SHARON HUERTA MD Dec 12, 2024 16:10
--- NOTE | 2024-12-12 20:33 | DVHPN2 ---
Consult Progress Note Date Seen: Dec 12, 2024 Objective vital signs Vital Sign Date Time Temp Pulse Resp B/P (MAP) Pulse Ox O2 Delivery O2 Flow Rate FiO2 12/12/24 18:45 87 16 95/49 (64) 96 12/12/24 18:42 99.4 12/12/24 18:15 Nasal Cannula* 2 28 Total Intake and Output 12/11/24 12/11/24 12/12/24 15:00 23:00 07:00 Intake Total 103.75 ml 350 ml 290 ml Output Total 40 ml Balance 103.75 ml 350 ml 250 ml medications Current Medications Medications Dose Ordered Sig/Shavon Route Start Time Stop Time Status Last Admin Dose Admin Acetaminophen 650 mg Q6HP PRN PO 12/04/24 03:30 12/12/24 17:29 650 MG Ondansetron HCl 4 mg Q4HP PRN IV 12/04/24 03:30 Diagnostic Test (Pha) 1 strip ACHS 12/04/24 07:00 12/12/24 17:05 1 STRIP Pantoprazole Sodium 40 mg BID IV 12/04/24 06:45 12/12/24 09:18 40 MG Acetaminophen/ Hydrocodone Bitart 1 tab Q4HPRN PRN PO 12/04/24 14:30 12/10/24 20:25 1 TAB Morphine Sulfate 1 mg Q4HPRN PRN IV 12/04/24 14:30 Tamsulosin HCl 0.4 mg QPM PO 12/04/24 18:00 12/12/24 18:33 0.4 MG Metoprolol Succinate 25 mg DAILY PO 12/05/24 10:00 Hold 12/09/24 09:30 25 MG Meropenem 50 ml @ 17 mls/hr Q12HR IV 12/05/24 22:00 12/12/24 09:19 17 MLS/HR Norepinephrine Bitartrate 250 ml @ 3.75 mls/hr Q24H IV 12/05/24 18:15 12/11/24 10:10 3.75 MLS/HR Calcium Acetate 1,334 mg TIDWMEALS PO 12/08/24 12:00 12/12/24 18:33 1,334 MG Tbo-Filgrastim 300 mcg DAILY SC 12/08/24 12:30 12/12/24 09:27 300 MCG Albumin Human 100 ml @ 100 mls/hr BETTYE IV 12/09/24 10:30 12/09/24 12:11 100 MLS/HR Micafungin Sodium 100 mg/Sodium Chloride 100 ml @ 100 mls/hr DAILY IV 12/10/24 10:00 12/12/24 09:19 100 MLS/HR Gabapentin 200 mg HS PO 12/10/24 22:00 12/11/24 21:12 200 MG Nystatin 5 ml QID MT 12/10/24 16:00 12/12/24 18:34 5 ML Daptomycin 0 ml @ 0 mls/hr PER PHARMACY IV 12/10/24 20:30 Daptomycin 500 mg/ Sodium Chloride 50 ml @ 100 mls/hr Q48H IV 12/11/24 15:00 12/11/24 16:17 100 MLS/HR Multivit/Ca Carb/ B Cmplx/FA/Prenat 1 tab DAILY PO 12/12/24 10:00 12/12/24 09:17 1 TAB Enteral Nutritional Formula 27.5 gm DAILY PO 12/12/24 10:00 12/12/24 09:23 27.5 GM Ergocalciferol 50,000 unit Q7D PO 12/12/24 08:45 12/12/24 09:38 50,000 UNIT Enteral Nutritional Formula 240 ml BIDWM PO 12/13/24 08:00 laboratory and microbiology Laboratory Tests 12/12/24 05:04 Test 12/12/24 05:04 Range/Units Serum Glucose 100 74-106 mg/dL Problem List/Assessment/Plan Problem List/Assessment/Plan Wolfgang White is a 59-year-old male patient who presents to the ED brought by family with chief complaint of progressive dyspnea in functional class IV, fever, chills, generalized weakness, confusion and anuria three days before his admission. Patient was recently discharged to a SNF from this facility after completing a triple-vessel CABG complicated with cardiac arrest and multiple strokes, currently patient is status bed-bound with chronic indwelling Jones. Denies palpitation, syncope, chest pain, abdominal pain, nausea, vomiting, diarrhea, dysuria and new motor or sensory deficits. Past medical history: Hypertension, diabetes, dyslipidemia, obesity, coronary artery disease status post triple-vessel CABG on October 2024 complicated with cardiac arrest and multiple strokes currently patient is bed-bound, HFpEF (LVEF 50%), CKD. Surgical history: October 2024 CABG Family history: Noncontributory Social history: Lives with family in [place]. 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 Ex-smoker (approximately 30 pack-year history of smoking). Denies current tobacco, alcohol and other drug abuse Allergies: Fish, shellfish, milk Home medication: Aspirin, clopidogrel, atorvastatin 80 mg p.o. daily, benzonatate, famotidine 20 mg p.o. b.i.d., furosemide 20 mg p.o. b.i.d., lisinopril 10 mg p.o. daily, melatonin 3 mg p.o. daily, metformin 500 mg p.o. daily, metoprolol 25 mg p.o. daily, tamsulosin 0.4 mg p.o. daily, tramadol 50 mg p.o. p.r.n. Patient seen and examined at bedside. Currently on LINDA status with intermittent requirement of norepinephrine during hemodialysis session, isolated with neutropenic precautions. WBCs 1 (neutrophils only 17%). Currently has no new complaints. Per primary team, hematology recruitment specialist described classic Hodgkin lymphoma in lymph node biopsy results. Physical Exam Patient lying in bed, in no acute distress General: Lucid, afebrile, mucosae are moist. Mucositis of tongue Cardiovascular: Normal S1 and S2. No murmurs, gallops or rubs. Sternotomy is stable, with no secretions or erythema, no cracking Respiratory: Normal ventilation mechanics. Clear lung sounds on auscultation. With requirement of nasal cannula at 4 liters/minute Abdomen: Soft, nontender, no organomegaly, normal bowel sounds MSK/skin: Mobilizes 4 limbs. Skin is dry and warm. Decubitus ulcer grade 3, with mild yellow-greenish secretion Neurological: Oriented in 3 spheres. Presents motor weakness of four limbs predominantly on right side, no motor no sensitive deficits. Bradypsychia. Pupils are isocoric and reactive Assessment Febrile neutropenia Questionable typhlitis Hodgkin lymphoma Rule out opportunistic infection Ruled out cholangitis Rule out mediastinitis Rule out hemolysis Multiple CVAs - Ruled out infective endocarditis GOPAL hemodynamically mediated on CKD - currently on hemodialysis Pancytopenia - status post lymph node resection and bone marrow biopsy (rule out malignancy) Coronary artery disease status post triple-vessel CABG complicated with cardiac arrest and multiple strokes Decubitus ulcer - present on admission Plan/Recommendation Ordered QuantiFERON (tuberculosis suspicion is low), HIV (negative), cocci serology, Aspergillus and histoplasmosis antibodies, wound culture (preliminary yeast, Streptococcus viridans and Enterococcus), and sputum culture (normal oropharyngeal la). All three blood cultures sets negative at the moment. Urine culture negative. MRSA swabs were negative. Low probability of MRSA pneumonia. If considering infection source, high suspicion of neutropenic enterocolitis/typhlitis. Per primary team, lymph node biopsy revealed classic Hodgkin lymphoma. Heme oncologist specialist on board. We will continue empiric IV antibiotics (meropenem, daptomycin and micafungin). Currently patient is on meropenem, daptomycin (to cover MRSA sepsis, not pneumonia), and micafungin. May consider switching to voriconazole depending on results of fungal serology Positive GGT (approximately 400), elevated alkaline phosphate probable biliary origin. MRCP ruled out bile duct or gallbladder distention, evidence trace ascites and splenomegaly. Ordered direct Farrukh and haptoglobin to rule out hemolysis Mediastinitis still not ruled out due to imaging without IV contrast, but diagnosis is highly unlikely due to stable sternotomy with no presence of secretion. Biopsy of lymph node showed activated T lymphocytes (nonconclusive). Pending bone marrow biopsy results Appreciate input of neurologist, seasonal customer service associate, metal punch press operator and maintenance planning clerk specialist. Evaluate continuing DAPT per seasonal customer service associate recommendation Rest of recommendations per primary team. Discussed plan with Dr. Reeder, patient and nurses: Have ordered complementary study for opportunistic infections. Patient is currently under broad spectrum empiric IV antibiotics and antifungal medication (meropenem, daptomycin and micafungin), we will modify antibiotic treatment as complementary workup is resulted. Lymph node biopsy shows probable classic Hodgkin lymphoma, Heme-Onc input appreciated. Patient has poor prognosis Plan discussed with: Patient, Other (Nurses and Dr Reynolds) Dietary Evaluation Review Comments: 1) Ergocalciferol 50,000IU weekly 2) Jose L 1 pk daily, MVI w/ mineral 1 tab, Vit C 500mg BID, Zinc sulfate 220mg daily x 10 days 3) Advance to [id number] + renal special 80gm protein diet 4) Continue current plan of care Expected Outcomes/Goals: Advance diet to meet at least 75% estimated needs FU 2-3 days CC Plasma Assessment Blood Product Administration S: 11:05 MALLORY SANTAMARIA RESIDENT Dec 12, 2024 20:33 MARC REEDER MD Dec 22, 2024 20:21
[2024-12-12] MEDS: PSYLLIUM PWD 5.8GM PKG GT ONE (22:00)
--- NOTE | 2024-12-12 22:09 | DVHPN2 ---
Progress Note - Dictate Date Seen: Dec 12, 2024 Has the PT tested + for MRSA If YES, has PT been informed?: No Medical Necessity Reason Pt with a Central, PICC or Fol: Yes The following are medically ne: Pond Catheter Reason for pond catheter: Bladder Retention/Obstruc, Strict I&O Subjective Patient seen and examined at bedside. Remains on supplemental oxygen Overnight events reviewed. vital signs Vital Sign Date Time Temp Pulse Resp B/P (MAP) Pulse Ox O2 Delivery O2 Flow Rate FiO2 12/12/24 18:45 87 16 95/49 (64) 96 12/12/24 18:42 99.4 12/12/24 18:15 Nasal Cannula* 2 28 Total Intake and Output 12/11/24 12/11/24 12/12/24 15:00 23:00 07:00 Intake Total 103.75 ml 350 ml 290 ml Output Total 40 ml Balance 103.75 ml 350 ml 250 ml medications Current Medications Medications Dose Ordered Sig/Shavon Route Start Time Stop Time Status Last Admin Dose Admin Acetaminophen 650 mg Q6HP PRN PO 12/04/24 03:30 12/12/24 17:29 650 MG Ondansetron HCl 4 mg Q4HP PRN IV 12/04/24 03:30 Diagnostic Test (Pha) 1 strip ACHS 12/04/24 07:00 12/12/24 17:05 1 STRIP Pantoprazole Sodium 40 mg BID IV 12/04/24 06:45 12/12/24 09:18 40 MG Acetaminophen/ Hydrocodone Bitart 1 tab Q4HPRN PRN PO 12/04/24 14:30 12/10/24 20:25 1 TAB Morphine Sulfate 1 mg Q4HPRN PRN IV 12/04/24 14:30 Tamsulosin HCl 0.4 mg QPM PO 12/04/24 18:00 12/12/24 18:33 0.4 MG Metoprolol Succinate 25 mg DAILY PO 12/05/24 10:00 Hold 12/09/24 09:30 25 MG Meropenem 50 ml @ 17 mls/hr Q12HR IV 12/05/24 22:00 12/12/24 09:19 17 MLS/HR Norepinephrine Bitartrate 250 ml @ 3.75 mls/hr Q24H IV 12/05/24 18:15 12/11/24 10:10 3.75 MLS/HR Calcium Acetate 1,334 mg TIDWMEALS PO 12/08/24 12:00 12/12/24 18:33 1,334 MG Tbo-Filgrastim 300 mcg DAILY SC 12/08/24 12:30 12/12/24 09:27 300 MCG Albumin Human 100 ml @ 100 mls/hr BETTYE IV 12/09/24 10:30 12/09/24 12:11 100 MLS/HR Micafungin Sodium 100 mg/Sodium Chloride 100 ml @ 100 mls/hr DAILY IV 12/10/24 10:00 12/12/24 09:19 100 MLS/HR Gabapentin 200 mg HS PO 12/10/24 22:00 12/11/24 21:12 200 MG Nystatin 5 ml QID MT 12/10/24 16:00 12/12/24 18:34 5 ML Daptomycin 0 ml @ 0 mls/hr PER PHARMACY IV 12/10/24 20:30 Daptomycin 500 mg/ Sodium Chloride 50 ml @ 100 mls/hr Q48H IV 12/11/24 15:00 12/11/24 16:17 100 MLS/HR Multivit/Ca Carb/ B Cmplx/FA/Prenat 1 tab DAILY PO 12/12/24 10:00 12/12/24 09:17 1 TAB Enteral Nutritional Formula 27.5 gm DAILY PO 12/12/24 10:00 12/12/24 09:23 27.5 GM Ergocalciferol 50,000 unit Q7D PO 12/12/24 08:45 12/12/24 09:38 50,000 UNIT Enteral Nutritional Formula 240 ml BIDWM PO 12/13/24 08:00 objective Gen.: Patient lying in bed in no apparent distress. On supplemental oxygen. Head: Normocephalic, atraumatic. Eyes: EOMI/PERRLA. Ears: Normal hearing. Normal anatomy. Neck/trachea: Trachea midline, supple. Nose: Normal external anatomy. Mouth: Moist mucous membranes. Chest: Decreased air entry bilaterally. No wheezing or rhonchi. Cardiovascular: Positive S1, positive S2. Regular rate and rhythm. Abdomen: Positive bowel sounds in all 4 quadrants. Soft, non-tender, non- distended. : Deferred. Rectal: Deferred. Skin: Warm, dry. Intact. Extremities: 2+ radial pulses bilaterally. No lower extremity edema. Neuro: Awake, alert, oriented x3. No gross motor or sensory deficits. Cranial nerves II through XII intact. Gait not assessed. laboratory and microbiology Laboratory Tests 12/12/24 05:04 Test 12/12/24 05:04 Range/Units Serum Glucose 100 74-106 mg/dL Assessment/Plan Impression: Acute hypoxic respiratory failure Dependence on supplemental oxygen Possible urinary tract infection CAD, s/p 3-vessel CABG. Septic shock Cerebrovascular accident Left pleural effusion Atelectasis Events: Remains on supplemental oxygen, 2 LPM NC Taper O2 as tolerated Hodgkin's lymphoma - awaiting bone marrow biopsy results. Neutropenic precautions WBC of 1.0 Leukopenia - on Filgrastim Hemodialysis per Nephrology Off Levophed - requires Levophed during dialysis Pressors as necessary to maintain a mean arterial blood pressure greater than 65 mmHg. Monitor blood pressure Head of bed elevation Aspiration precautions Continue antibiotics Continue antifungals Incentive spirometry Accu-Cheks Protonix BID Monitor hemoglobin Monitor platelets d/t thrombocytopenia Wound care S/p left IJ Lamin cath placement. HD per Nephrology Monitor renal function Nephrology recommendations appreciated CT head - positive CVA - plan for higher level of care. Brain MRI showed e/o multiple strokes Labs and imaging reviewed. Rest of plan as noted below. Plan: Supplemental oxygen Titrate to keep O2 sats above 92%. Pressors as necessary for hemodynamic support Titrate to keep mean arterial pressure greater than 65 mmHg. Echocardiogram reviewed, notable for EF 50% Cardiology recs appreciated. Continue antibiotics Incentive spirometry Accu-Cheks, ISS PRN. Monitor renal function. Monitor electrolytes. Supplement as necessary. Monitor ins and outs. Pond for strict ins and outs Plan for HLOC due to CVA. DVT prophylaxis. Prognosis: Poor given patient's multiple co-morbidities. Condition: Critical Rest of plan per hospitalist and other consultants. A total of 35 minutes of critical care time was spent reviewing the patient record, examining the patient, making a diagnostic and therapeutic plan, discussing this plan with the medical personnel, following up on diagnostic studies and following the patient for clinical stability excluding any and all procedures. At least 50% of this time was spent in direct, [id number] contact. Thank you, Dr. Smith, for allowing me to participate in this patient's care. Further recommendations will depend on the patient's clinical course. Please do not hesitate to contact me if you have any questions or concerns. This medical document was created using an electronic medical record system with [employer] dictation system. Although these documentations are being carefully reviewed, there may still be some phonetic and typographical changes. The errors are purely typographical, due to imperfection on the software program, and do not reflect any compromise in the patient's medical care. Dietary Evaluation Review Comments: 1) Ergocalciferol 50,000IU weekly 2) Jose L 1 pk daily, MVI w/ mineral 1 tab, Vit C 500mg BID, Zinc sulfate 220mg daily x 10 days 3) Advance to [id number] + renal special 80gm protein diet 4) Continue current plan of care Expected Outcomes/Goals: Advance diet to meet at least 75% estimated needs FU 2-3 days Plan discussed with: Other (VIJAY Gasca) Critical Care Time(min): 35 CC Plasma Assessment Blood Product Administration S: 11:05 JERAMY CAMARA MD Dec 12, 2024 22:09
[2024-12-13] VITALS (99 sets, daily range): BP systolic 78–137; BP diastolic 23–84; PULSE 73–132; RESP 10–25; TEMP 97.2–101.2; O2SAT 87–100
[2024-12-13 04:55] LABS: Hematocrit 25.2 % (41.0-53.0); Hemoglobin 8.7 g/dL (13.5-17.5); Mean Corpuscular Hemoglobin 28.8 pg (28.0-32.0); Mean Corpuscular Hgb Conc. 34.7 g/dL (32.0-36.0); Mean Corpuscular Volume 83.1 fL (80.0-100.0); Platelet Count (auto) 67 10^3/uL (140-450); Red Blood Cells 3.03 10^6/uL (4.5-5.90); Red Cell Distribution Width 17.2 % (11.8-14.3)
[2024-12-13 05:00] LABS: Basophils % (manual) 0 (0.0-2.0); Blast Cells 0; Myelocytes % 0; Promyelocytes % 0; Reactive Lymphocytes 0
[2024-12-13 05:05] LABS: Anion Gap 6 (5-15); Carbon Dioxide 28 mmol/L (20-31); Potassium 3.9 mmol/L (3.5-5.1)
[2024-12-13 05:11] LABS: BUN/Creatinine Ratio 14.1 (10.0-20.0)
[2024-12-13 05:13] LABS: Blood Urea Nitrogen 69 mg/dL (9-23); Calcium 8.3 mg/dL (8.7-10.4); Chloride 98 mmol/L (98-107); Glucose 140 mg/dL (74-106); Sodium 132 mmol/L (136-145)
[2024-12-13 06:53] LABS: Band Neutrophils % (manual) 2; Eosinophils % (manual) 1 (0-7); Lymphocytes % (manual) 16 (10.0-50.0); Metamyelocytes % 1; Monocytes % (manual) 10 (0-12)
[2024-12-13 06:54] LABS: Anisocytosis Slight; Ovalocytes FEW; Platelet Estimate Decreased
[2024-12-13] MEDS: Nepro With Carbsteady Vanilla 8oz Carton PO SCH (08:36)
[2024-12-13] MEDS: MIDODRINE HCL 10 MG TAB PO SCH (08:43)
--- NOTE | 2024-12-13 09:09 | DVHPNRES ---
Progress Note Date Seen: Dec 13, 2024 Resident Creating Document: KAMILLE VÁSQUEZ RESIDENT Has the PT tested + for MRSA If YES, has PT been informed?: No Medical Necessity Reason Pt with a Central, PICC or Fol: Yes The following are medically ne: Pond Catheter Reason for pond catheter: Bladder Retention/Obstruc, Strict I&O Subjective Review of Systems Mr. Vu is a 59-year-old male with a past medical history of coronary artery disease status post CABG in October 2024, ischemic stroke oct 2024, status post bed bound and chronic indwelling Pond, hypertension, and hyperlipidemia. He was brought to the ER by the family with a chief complaint of heavy breathing, fever, chills, and anuria for the past 3 days. Per the daughter at bedside, the patient had never followed up with urology or cardiology after he was discharged from this facility on 11/07/24. He usually makes 1600 cc of urine a day. Per daughter, patient has a wound in his back and is also draining a white pus-like substance. Patient also reported dysuria and abdominal discomfort. He also reports heavy breathing and mild nonproductive cough. On arrival, patient was febrile at 101.2F, tachycardic, blood pressure 144/77, and requiring 4 L oxygen supplementation. White cell count was 3.6, hemoglobin 8.8, and hematocrit 23. Patient had hyperkalemia, potassium was 6 which downtrended to 5.4. Creatinine was 2.9 and BUN 77. Patient's Pond catheter was removed in ED after being in place for more than a month, the patient does not urinate on his own, bladder scan showed empty bladder, nephrology was consulted. Chest x-ray shows bibasilar consolidation. The patient has mildly elevated transaminases. 12/05/[address] findings of substernal soft tissue density: new echo ordered, azithromycin was added to cover atypicals and hyperkalemia protocol was done, patient is having febrile neutropenia, CT scan of abdomen showed right groin lymphadenopathy, lymphadenopathy biopsy was done. 1 RBC was transfused per cardiology. 12/06/24 at 5:30 pm, patient had an episode of AMS, weakness, and hypotension, increased left leg weakness and left facial droop. CT scan negative for stroke or hemorrhage, patient was placed on Levophed and weaned off at 8 pm, fluids IV 100 cc during the night, today x-ray showed mild congestion. IV fluids reduced to 60cc and furosemide IV was started. New MRI showed multiple small strokes in different places; probably cardiembolic etiology. Neurology Dr. Cabral, stated no need for CTA or thrombectomy, also transfer to [facility] was planned but according to the center he had his CABG, patient can be managed in [facility]. Also, nephrology consulted. 12/07/24: EMILY was ordered and will be done today. Worsening renal function; nephrology will discuss possible hemodialysis with the patient and his family. 12/08/24: EMILY negative, neupogen started, patient had fever last night, new pancultures, renal function is trending high, dialysis catheter placed on the left, new K normal on place, possible HD today. 12/10/24: Stop plavix, patient continues to have fevers, cultures prelim negative, pending bone marrow biopsy. 12/11/24: ID was consulted, vancomycin was changed for daptomycin, further studies were ordered to study possible source of infection, WBC is trending high, last fever 12/10 4pm, HD was done but patient needed levophed 2mcg, bilirubin is trending high, EPO was started by Nephro 12/12/24: lymph node biopsy: Hodgkin lymphoma, diagnosis disccused with family, patient still having fevers and diarrhea, necrotic ulcer assessed by dr Jacinto no need of intervention. 12/13/24: wbc is trending high, 6 episodes of diarrhea, today we are going to continue with metamucil and start midodrine, pending HD Objective vital signs Vital Sign Date Time Temp Pulse Resp B/P (MAP) Pulse Ox O2 Delivery O2 Flow Rate FiO2 12/13/24 06:45 80 15 102/57 (72) 96 12/13/24 06:00 Nasal Cannula* 2 28 12/13/24 05:13 98.7 Total Intake and Output 12/12/24 12/12/24 12/13/24 15:00 23:00 07:00 Intake Total 150 ml 600 ml 250 ml Output Total 30 ml 5 ml Balance 150 ml 570 ml 245 ml medications Current Medications Medications Dose Ordered Sig/Shavon Route Start Time Stop Time Status Last Admin Dose Admin Acetaminophen 650 mg Q6HP PRN PO 12/04/24 03:30 12/13/24 04:13 650 MG Ondansetron HCl 4 mg Q4HP PRN IV 12/04/24 03:30 Diagnostic Test (Pha) 1 strip ACHS 12/04/24 07:00 12/13/24 06:06 1 STRIP Pantoprazole Sodium 40 mg BID IV 12/04/24 06:45 12/12/24 22:00 40 MG Acetaminophen/ Hydrocodone Bitart 1 tab Q4HPRN PRN PO 12/04/24 14:30 12/10/24 20:25 1 TAB Morphine Sulfate 1 mg Q4HPRN PRN IV 12/04/24 14:30 Tamsulosin HCl 0.4 mg QPM PO 12/04/24 18:00 12/12/24 18:33 0.4 MG Metoprolol Succinate 25 mg DAILY PO 12/05/24 10:00 Hold 12/09/24 09:30 25 MG Meropenem 50 ml @ 17 mls/hr Q12HR IV 12/05/24 22:00 12/12/24 22:01 17 MLS/HR Norepinephrine Bitartrate 250 ml @ 3.75 mls/hr Q24H IV 12/05/24 18:15 12/11/24 10:10 3.75 MLS/HR Calcium Acetate 1,334 mg TIDWMEALS PO 12/08/24 12:00 12/12/24 18:33 1,334 MG Tbo-Filgrastim 300 mcg DAILY SC 12/08/24 12:30 12/12/24 09:27 300 MCG Albumin Human 100 ml @ 100 mls/hr BETTYE IV 12/09/24 10:30 12/09/24 12:11 100 MLS/HR Micafungin Sodium 100 mg/Sodium Chloride 100 ml @ 100 mls/hr DAILY IV 12/10/24 10:00 12/12/24 09:19 100 MLS/HR Gabapentin 200 mg HS PO 12/10/24 22:00 12/12/24 22:01 200 MG Nystatin 5 ml QID MT 12/10/24 16:00 12/13/24 06:06 5 ML Daptomycin 0 ml @ 0 mls/hr PER PHARMACY IV 12/10/24 20:30 Daptomycin 500 mg/ Sodium Chloride 50 ml @ 100 mls/hr Q48H IV 12/11/24 15:00 12/11/24 16:17 100 MLS/HR Multivit/Ca Carb/ B Cmplx/FA/Prenat 1 tab DAILY PO 12/12/24 10:00 12/12/24 09:17 1 TAB Enteral Nutritional Formula 27.5 gm DAILY PO 12/12/24 10:00 12/12/24 09:23 27.5 GM Ergocalciferol 50,000 unit Q7D PO 12/12/24 08:45 12/12/24 09:38 50,000 UNIT Enteral Nutritional Formula 240 ml BIDWM PO 12/13/24 08:00 12/13/24 08:36 240 ML Midodrine 10 mg TID@0600,1200,1800 PO 12/13/24 08:15 12/13/24 08:43 10 MG Examination General: Afebrile, palor, mucosae are moist Cardiovascular: sternal wound clean, sternum stable, regular S1 and S2. No murmurs, gallops or rubs. No JVD elevation. No pedal edema. HD cath placed Respiratory: Normal B/L air entry on 2 L NC. Clear lung sounds on auscultation Abdomen: Soft, nontender, nondistended, normoactive bowel sounds, no rebound tenderness, no organomegaly, no masses. Neurological: Residual left lower extremity weakness.. Pupils are isocoric and reactive. Psych/Mental Status: A/Ox3 Patient has a stage II sacral decubitus ulcer, necrotic laboratory and microbiology Laboratory Tests 12/13/24 04:29 Test 12/13/24 04:29 Range/Units Serum Glucose 140 H 74-106 mg/dL Microbiology Date/Time Source Procedure Growth Status 12/11/24 15:31 Sputum Gram Stain - Final Resulted 12/11/24 15:31 Sputum Respiratory Culture - Preliminary Resulted 12/10/24 10:17 Sacrum Gram Stain - Final Resulted 12/10/24 10:17 Sacrum Wound Culture - Preliminary Resulted 12/10/24 10:17 Voided Urine Urine Culture - Preliminary Resulted 12/08/24 14:39 Blood Blood Culture - Preliminary NO GROWTH AFTER 72 HOURS OF INCUBATION. 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 board Neupogen 6 days today: wbc stable Dr Pastor stated that the patient will need chemotherapy when he is stable as outpatient Neurology #Acute metabolic/hypoxic encephalopathy due to stroke and sepsis #Possible acute cardioembolic stroke: corpus callosum, bilateral frontal and right parietal #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 There is no evidence of acute hemorrhage. There is no mass effect. There are additional scattered punctate foci of restricted diffusion in the bilateral frontal and right parietal lobe deep white matter which may represent tiny foci of acute to subacute infarcts. Bran MRI oct 2024: There prominent diffusion restriction also seen within the genu and anterior body of the corpus callosum. There is an apparent punctate additional focus of diffusion restriction in the medulla Neurology on board Aspirin continue Continue atorvastatin 40 mg EMILY normal Carotid duplex: No hemodynamically significant stenosis within the carotid arteries Pregabalin trial per neuro Need of PT Cardiology #Severe coronary artery disease status post triple-vessel CABG #Substernal soft tissue density likely secondary to recent CABG #Possible acute on Chronic HFpEF, NYHA class III Cardiology signed off 12/05/24 ECHO: Left atrial enlargement with dilation of the sinuses of Valsalva. Mild RV enlargement. Moderate aortic sclerosis with diminished excursion of the leaflets and calcification of what appears to be the right and non coronary cusps. Left ventricular function appears preserved. EF of about 50% with normal RV function. The tricuspid is normal. Doppler reveals some mild to moderate TR. No pericardial effusion masses or vegetations. 12/04/24: Substernal soft tissue density and stranding without a large fluid collection. Fat stranding is nonspecific and should be correlated with timing of surgery. Alternatively this could reflect an infectious or inflammatory etiology. Small bilateral pleural effusions and passive atelectasis. Cardiomegaly. 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 Trace ascites. Partially visualized trace right pleural effusion. 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 #Possible septic emboli? #sacral wound #Rule out opportunistic infections #Possible tiflitis EMILY neg Daptomycin + Meropenem + Micafungin Patient had a sacral wound, cultures ordered: prelim yeast and gram + Multiple studies ordered to rule out opportunistic infection on severe immunocompromised patient Last fever 12/11 Dr Jacinto assessed the wound: no need for surgery for now Endocrinology #Hypoglycemia #Prediabetes Diabetic diet Stop insulin Case discussed with Dr Mi Plan discussed with: Patient, Other (rn) My Orders My Orders Orders - KAMILLE VÁSQUEZ RESIDENT Procedure Category Date Status Time * Surgical Consult CONS 12/12/24 Transmitted Nutritional PHA 12/13/24 In Process Supplements (Nepro 08:00 Midodrine Tablet PHA 12/13/24 In Process (Proamatine Tablet) 08:15 Dietary Evaluation Review Comments: 1) Ergocalciferol 50,000IU weekly 2) Jose L 1 pk daily, MVI w/ mineral 1 tab, Vit C 500mg BID, Zinc sulfate 220mg daily x 10 days 3) Advance to [id number] + renal special 80gm protein diet 4) Continue current plan of care Expected Outcomes/Goals: Advance diet to meet at least 75% estimated needs FU 2-3 days CC Plasma Assessment Blood Product Administration S: 11:05 Date of Service: Dec 13, 2024 Billing Provider: AKILAH MI DO Common Visit Codes: [id number] CARE 30-74 MIN KAMILLE VÁSQUEZ RESIDENT Dec 13, 2024 09:09 AKILAH MI DO Dec 14, 2024 11:43
[2024-12-13] MEDS: PSYLLIUM PWD 5.8GM PKG GT ONE (09:35)
[2024-12-13 10:06] LABS: Albumin 1.6 g/dL (2.9-4.4); Alpha-1-Globulin 0.5 g/dL (0.0-0.4); Alpha-2-Globulin 1.2 g/dL (0.4-1.0); Gamma Globulin 1.2 g/dL (0.4-1.8); Globulin Total 3.7 g/dL (2.2-3.9); Protein Total Serum 5.3 g/dL (6.0-8.5)
[2024-12-13 10:32] LABS: Albumin 2.3 g/dL (3.2-4.8); Bilirubin, Direct 4.8 mg/dL (<0.3); Bilirubin, Total 6.3 mg/dL (0.2-1.0); Total Protein 5.2 g/dL (5.7-8.2)
--- NOTE | 2024-12-13 10:49 | DVHPN2 ---
Progress Note - Dictate Date Seen: Dec 13, 2024 Has the PT tested + for MRSA If YES, has PT been informed?: No Medical Necessity Reason Pt with a Central, PICC or Fol: Yes The following are medically ne: Pond Catheter Reason for pond catheter: Bladder Retention/Obstruc, Strict I&O Subjective Mr. Narciso White is a 59 years old right-handed gentleman with a history of hypertension, diabetes, dyslipidemia, coronary artery disease, heart attack, recent CABG, he was taken to the [facility] on 12/03/2024 with a chief company of fever. But he was also developed acute stroke syndrome I have seen and examined the patient, discussed with his nurse, in the room with him, he was doing better today, awake, oriented x3 Bone marrow biopsy on 12/11/2024 WBC is 3 today UDS, 12/04/2024: Negative Urinalysis, 12/04/2024: WBC: 1, urine leukocyte esterase: Negative WBC/HB/PLT/MCV, 12/06/2024: 0.6/7.8/147/84.5 12/07/2024: 0.8/8.2/141/84.2 PTT/INR/PTT, 12/05/2024: 12.4/1.19/37.2 BUN/CR, 12/06/2024: 82/3.64, 12/12/2024: 48/3.67 HGB A1c, 12/04/2024: 5.9 TBI/AST/ALT/AP, 12/06/2024: 1.5/68/37/454, 12/10/2024: 3.5/88/36/616 12/12/2024: 5/76/29/825 TG/HDL/LDL/HDL, 12/06/2024: 138/79/20/11, 12/07/2024: 141/77/20/9 Vitamin B12, 11/2024: 1395 TSH, 11/2024: 0.7 SIFE, 12/06/2024: Iron/TIBC/Sat, 12/10/2024: 34/123/27.5 Ferritin, 12/10/2024: >3300 Bone marrow biopsy (12/11/24) Carotid Doppler, 12/07/2024: No hemodynamically significant stenosis within the carotid arteries Echocardiogram, 12/05/2024: Sinus rhythm. Left atrial enlargement with dilation of the sinuses of Valsalva. Mild RV enlargement. Moderate aortic sclerosis with diminished excursion of the leaflets and calcification of what appears to be the right and non coronary cusps. From the short axis view there does not appear to be limitation in motion. Normal pulmonic valve. Left ventricular function appears preserved. EF of about 50% with normal RV function. The tricuspid is normal. Doppler reveals some mild to moderate TR. No pericardial effusion masses or vegetations EMILY, 12/07/2024: Normal chamber dimensions. Valves appear to be structurally normal. Normal aortic mitral tricuspid and pulmonic valves Left ventricular function was preserved at 60% with normal RV function. Doppler reveals mild tricuspid insufficiency. Mild mitral insufficiency. No pericardial effusion masses or vegetations noted. The atrial appendage is normal. There are no thrombi present. Bubble study did not reveal crossover into the left side. Abnormal shunting otherwise present. MRI brain, 12/06/2024: 1. There is a small area of restricted diffusion involving the anterior body / genu of the corpus callosum consistent with an acute to subacute infarct. There is no evidence of acute hemorrhage. There is no mass effect. 2. There are additional scattered punctate foci of restricted diffusion in the bilateral frontal and right parietal lobe deep white matter which may represent tiny foci of acute to subacute infarcts Lymph node biopsy, 12/06/24: Hodgkin's lymphoma vital signs Vital Sign Date Time Temp Pulse Resp B/P (MAP) Pulse Ox O2 Delivery O2 Flow Rate FiO2 12/13/24 06:45 80 15 102/57 (72) 96 12/13/24 06:00 Nasal Cannula* 2 28 12/13/24 05:13 98.7 Total Intake and Output 12/12/24 12/12/24 12/13/24 15:00 23:00 07:00 Intake Total 150 ml 600 ml 250 ml Output Total 30 ml 5 ml Balance 150 ml 570 ml 245 ml medications Current Medications Medications Dose Ordered Sig/Shavon Route Start Time Stop Time Status Last Admin Dose Admin Acetaminophen 650 mg Q6HP PRN PO 12/04/24 03:30 12/13/24 04:13 650 MG Ondansetron HCl 4 mg Q4HP PRN IV 12/04/24 03:30 Diagnostic Test (Pha) 1 strip ACHS 12/04/24 07:00 12/13/24 06:06 1 STRIP Pantoprazole Sodium 40 mg BID IV 12/04/24 06:45 12/12/24 22:00 40 MG Acetaminophen/ Hydrocodone Bitart 1 tab Q4HPRN PRN PO 12/04/24 14:30 12/10/24 20:25 1 TAB Morphine Sulfate 1 mg Q4HPRN PRN IV 12/04/24 14:30 Tamsulosin HCl 0.4 mg QPM PO 12/04/24 18:00 12/12/24 18:33 0.4 MG Metoprolol Succinate 25 mg DAILY PO 12/05/24 10:00 Hold 12/09/24 09:30 25 MG Meropenem 50 ml @ 17 mls/hr Q12HR IV 12/05/24 22:00 12/12/24 22:01 17 MLS/HR Norepinephrine Bitartrate 250 ml @ 3.75 mls/hr Q24H IV 12/05/24 18:15 12/11/24 10:10 3.75 MLS/HR Calcium Acetate 1,334 mg TIDWMEALS PO 12/08/24 12:00 12/12/24 18:33 1,334 MG Tbo-Filgrastim 300 mcg DAILY SC 12/08/24 12:30 12/12/24 09:27 300 MCG Albumin Human 100 ml @ 100 mls/hr BETTYE IV 12/09/24 10:30 12/09/24 12:11 100 MLS/HR Micafungin Sodium 100 mg/Sodium Chloride 100 ml @ 100 mls/hr DAILY IV 12/10/24 10:00 12/12/24 09:19 100 MLS/HR Gabapentin 200 mg HS PO 12/10/24 22:00 12/12/24 22:01 200 MG Nystatin 5 ml QID MT 12/10/24 16:00 12/13/24 06:06 5 ML Daptomycin 0 ml @ 0 mls/hr PER PHARMACY IV 12/10/24 20:30 Daptomycin 500 mg/ Sodium Chloride 50 ml @ 100 mls/hr Q48H IV 12/11/24 15:00 12/11/24 16:17 100 MLS/HR Multivit/Ca Carb/ B Cmplx/FA/Prenat 1 tab DAILY PO 12/12/24 10:00 12/12/24 09:17 1 TAB Enteral Nutritional Formula 27.5 gm DAILY PO 12/12/24 10:00 12/12/24 09:23 27.5 GM Ergocalciferol 50,000 unit Q7D PO 12/12/24 08:45 12/12/24 09:38 50,000 UNIT Enteral Nutritional Formula 240 ml BIDWM PO 12/13/24 08:00 12/13/24 08:36 240 ML Midodrine 10 mg TID@0600,1200,1800 PO 12/13/24 08:15 12/13/24 08:43 10 MG objective General: the patient is well developed and nourished. No acute distress. MENTAL STATUS: Subjective SPEECH, LANGUAGE, HIGHER CORTICAL FUNCTION: no aphasia or dysathria. CRANIAL NERVES: Pupils are equal, round and reactive. EOMs full and conjugate. No nystagmus. Facial sensation intact in all three divisions bilaterally. Mandibular strength intact. Facial muscles symmetrical and strength intact. SENSATION: Sensation to touch and pinprick is diminished distally in the lower extremities, but no [id number] differences MOTOR: Normal tone in the upper and lower extremity. Normal muscle bulk. No fasciculations. No abnormal movements or posturing. Muscle strength of the major groups in the upper extremities is: close to 4/5. He can move both legs, muscle power feels 3-4/5. REFLEXES: Deep tendon reflexes are symmetrical. No pathological reflexes. CEREBELLAR/COORDINATION: No ataxia in the upper extremities GAIT/STATION: deferred. laboratory and microbiology Laboratory Tests 12/13/24 04:29 Test 12/13/24 04:29 Range/Units Serum Glucose 140 H 74-106 mg/dL Problem List Recent acute stroke with left-sided weakness Acute stroke syndrome MRI evident multiple acute strokes (11/08/2024) Pancytopenia/rule out malignancy Anemia Fever/sepsis Septic shock Coronary artery disease with recent CABG Diabetic polyneuropathy Restless leg syndrome Anemia Elevated liver function tests Hodgkin's lymphoma Assessment/Plan Monitoring Supportive treatment LINDA Care IV antibiotics Aspirin 81 mg daily Lipitor 75 mg daily Gabapentin 200 mg in the evening Physical therapist GI prophylaxis Up to chair He is aware of neuropathy related foot care More recommendation per clinical course This medical document was created using an electronic medical record system with [employer] dictation system. Although this document has been carefully reviewed, there may still be some phonetic and typographical errors. These areas are purely typographical due to imperfections of the software programs, and do not reflect any compromise in the patient's medical care. Prognosis poor Dietary Evaluation Review Comments: 1) Ergocalciferol 50,000IU weekly 2) Jose L 1 pk daily, MVI w/ mineral 1 tab, Vit C 500mg BID, Zinc sulfate 220mg daily x 10 days 3) Advance to [id number] + renal special 80gm protein diet 4) Continue current plan of care Expected Outcomes/Goals: Advance diet to meet at least 75% estimated needs FU 2-3 days Plan discussed with: Other CC Plasma Assessment Blood Product Administration S: 11:05 NIKOLAS PRATT MD Dec 13, 2024 10:49
--- NOTE | 2024-12-13 11:59 | DVHPN2 ---
Consult Progress Note Date Seen: Dec 13, 2024 Objective vital signs Vital Sign Date Time Temp Pulse Resp B/P (MAP) Pulse Ox O2 Delivery O2 Flow Rate FiO2 12/13/24 06:45 80 15 102/57 (72) 96 12/13/24 06:00 Nasal Cannula* 2 28 12/13/24 05:13 98.7 Total Intake and Output 12/12/24 12/12/24 12/13/24 15:00 23:00 07:00 Intake Total 150 ml 600 ml 250 ml Output Total 30 ml 5 ml Balance 150 ml 570 ml 245 ml medications Current Medications Medications Dose Ordered Sig/Shavon Route Start Time Stop Time Status Last Admin Dose Admin Acetaminophen 650 mg Q6HP PRN PO 12/04/24 03:30 12/13/24 04:13 650 MG Ondansetron HCl 4 mg Q4HP PRN IV 12/04/24 03:30 Diagnostic Test (Pha) 1 strip ACHS 12/04/24 07:00 12/13/24 06:06 1 STRIP Pantoprazole Sodium 40 mg BID IV 12/04/24 06:45 12/13/24 11:00 40 MG Acetaminophen/ Hydrocodone Bitart 1 tab Q4HPRN PRN PO 12/04/24 14:30 12/10/24 20:25 1 TAB Morphine Sulfate 1 mg Q4HPRN PRN IV 12/04/24 14:30 Tamsulosin HCl 0.4 mg QPM PO 12/04/24 18:00 12/12/24 18:33 0.4 MG Metoprolol Succinate 25 mg DAILY PO 12/05/24 10:00 Hold 12/09/24 09:30 25 MG Meropenem 50 ml @ 17 mls/hr Q12HR IV 12/05/24 22:00 12/13/24 10:56 17 MLS/HR Norepinephrine Bitartrate 250 ml @ 3.75 mls/hr Q24H IV 12/05/24 18:15 12/11/24 10:10 3.75 MLS/HR Calcium Acetate 1,334 mg TIDWMEALS PO 12/08/24 12:00 12/12/24 18:33 1,334 MG Tbo-Filgrastim 300 mcg DAILY SC 12/08/24 12:30 12/13/24 11:25 300 MCG Albumin Human 100 ml @ 100 mls/hr BETTYE IV 12/09/24 10:30 12/09/24 12:11 100 MLS/HR Micafungin Sodium 100 mg/Sodium Chloride 100 ml @ 100 mls/hr DAILY IV 12/10/24 10:00 12/13/24 11:24 100 MLS/HR Gabapentin 200 mg HS PO 12/10/24 22:00 12/12/24 22:01 200 MG Nystatin 5 ml QID MT 12/10/24 16:00 12/13/24 06:06 5 ML Daptomycin 0 ml @ 0 mls/hr PER PHARMACY IV 12/10/24 20:30 Daptomycin 500 mg/ Sodium Chloride 50 ml @ 100 mls/hr Q48H IV 12/11/24 15:00 12/11/24 16:17 100 MLS/HR Multivit/Ca Carb/ B Cmplx/FA/Prenat 1 tab DAILY PO 12/12/24 10:00 12/13/24 11:00 1 TAB Enteral Nutritional Formula 27.5 gm DAILY PO 12/12/24 10:00 12/12/24 09:23 27.5 GM Ergocalciferol 50,000 unit Q7D PO 12/12/24 08:45 12/12/24 09:38 50,000 UNIT Enteral Nutritional Formula 240 ml BIDWM PO 12/13/24 08:00 12/13/24 08:36 240 ML Midodrine 10 mg TID@0600,1200,1800 PO 12/13/24 08:15 12/13/24 08:43 10 MG laboratory and microbiology Laboratory Tests 12/13/24 04:29 Test 12/13/24 04:29 Range/Units Serum Glucose 140 H 74-106 mg/dL Problem List/Assessment/Plan Problem List/Assessment/Plan Wolfgang White is a 59-year-old male patient who presents to the ED brought by family with chief complaint of progressive dyspnea in functional class IV, fever, chills, generalized weakness, confusion and anuria three days before his admission. Patient was recently discharged to a SNF from this facility after completing a triple-vessel CABG complicated with cardiac arrest and multiple strokes, currently patient is status bed-bound with chronic indwelling Jones. Denies palpitation, syncope, chest pain, abdominal pain, nausea, vomiting, diarrhea, dysuria and new motor or sensory deficits. Past medical history: Hypertension, diabetes, dyslipidemia, obesity, coronary artery disease status post triple-vessel CABG on October 2024 complicated with cardiac arrest and multiple strokes currently patient is bed-bound, HFpEF (LVEF 50%), CKD. Surgical history: October 2024 CABG Family history: Noncontributory Social history: Lives with family in [place]. 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 Ex-smoker (approximately 30 pack-year history of smoking). Denies current tobacco, alcohol and other drug abuse Allergies: Fish, shellfish, milk Home medication: Aspirin, clopidogrel, atorvastatin 80 mg p.o. daily, benzonatate, famotidine 20 mg p.o. b.i.d., furosemide 20 mg p.o. b.i.d., lisinopril 10 mg p.o. daily, melatonin 3 mg p.o. daily, metformin 500 mg p.o. daily, metoprolol 25 mg p.o. daily, tamsulosin 0.4 mg p.o. daily, tramadol 50 mg p.o. p.r.n. Patient seen and examined at bedside. Currently on LINDA status with intermittent requirement of norepinephrine during hemodialysis session, isolated with neutropenic precautions. WBCs 3 (neutrophils 70%), isolation can be removed. Currently has no new complaints. Per primary team, hematology asset recovery specialist described classic Hodgkin lymphoma in lymph node biopsy results. Physical Exam Patient lying in bed, in no acute distress General: Lucid, afebrile, mucosae are moist. Mucositis of tongue Cardiovascular: Normal S1 and S2. No murmurs, gallops or rubs. Sternotomy is stable, with no secretions or erythema, no cracking Respiratory: Normal ventilation mechanics. Clear lung sounds on auscultation. With requirement of nasal cannula at 4 liters/minute Abdomen: Soft, nontender, no organomegaly, normal bowel sounds MSK/skin: Mobilizes 4 limbs. Skin is dry and warm. Decubitus ulcer grade 3, with mild yellow-greenish secretion Neurological: Oriented in 3 spheres. Presents motor weakness of four limbs predominantly on right side, no motor no sensitive deficits. Bradypsychia. Pupils are isocoric and reactive Assessment Febrile neutropenia Questionable typhlitis Hodgkin lymphoma Rule out opportunistic infection Ruled out cholangitis Rule out mediastinitis Transaminitis Ruled out hemolysis Multiple CVAs - Ruled out infective endocarditis GOPAL hemodynamically mediated on CKD - currently on hemodialysis Pancytopenia - status post lymph node resection and bone marrow biopsy (rule out malignancy) Coronary artery disease status post triple-vessel CABG complicated with cardiac arrest and multiple strokes Decubitus ulcer - present on admission Plan/Recommendation Ordered QuantiFERON (tuberculosis suspicion is low), HIV (negative), cocci serology, Aspergillus and histoplasmosis antibodies, wound culture (preliminary yeast, Streptococcus viridans and Enterococcus), and sputum culture (normal oropharyngeal la). All three blood cultures sets negative at the moment. Urine culture negative. MRSA swabs were negative. Low probability of MRSA pneumonia. If considering infection source, high suspicion of neutropenic enterocolitis/typhlitis. Per primary team, lymph node biopsy revealed classic Hodgkin lymphoma. Heme oncologist specialist on board. We will continue empiric IV antibiotics (cefepime, daptomycin and micafungin, previously on meropenem). De-escalated meropenem to cefepime to reduce risk of carbapenem resistance Currently patient is on meropenem, daptomycin (to cover MRSA sepsis, not pneumonia), and micafungin. May consider switching to voriconazole depending on results of fungal serology Positive GGT (approximately 400), elevated alkaline phosphate probable biliary origin. MRCP ruled out bile duct or gallbladder distention, evidence trace ascites and splenomegaly. Negative direct Farrukh and haptoglobin, ruled out hemolysis Mediastinitis still not ruled out due to imaging without IV contrast, but diagnosis is highly unlikely due to stable sternotomy with no presence of secretion. Biopsy of lymph node showed activated T lymphocytes (nonconclusive). Pending bone marrow biopsy results Appreciate input of neurologist, phlebotomist associate, semiconductor testing group leader and station installation supervisor specialist. Evaluate continuing DAPT per phlebotomist associate recommendation Rest of recommendations per primary team. Discussed plan with Dr. Reeder, patient and nurses: Have ordered complementary study for opportunistic infections, mostly negative, some pending. Patient is currently under broad spectrum empiric IV antibiotics and antifungal medication (Cefepime, daptomycin and micafungin), we will modify antibiotic treatment as complementary workup is resulted. Lymph node biopsy shows probable classic Hodgkin lymphoma, Heme-Onc input appreciated. Patient has poor prognosis Plan discussed with: Patient, Daughter, Other (Nurses) Dietary Evaluation Review Comments: 1) Ergocalciferol 50,000IU weekly 2) Jose L 1 pk daily, MVI w/ mineral 1 tab, Vit C 500mg BID, Zinc sulfate 220mg daily x 10 days 3) Advance to [id number] + renal special 80gm protein diet 4) Continue current plan of care Expected Outcomes/Goals: Advance diet to meet at least 75% estimated needs FU 2-3 days CC Plasma Assessment Blood Product Administration S: 11:05 MALLORY SANTAMARIA RESIDENT Dec 13, 2024 11:59 MARC REEDER MD Dec 22, 2024 20:22
[2024-12-13 13:07] LABS: Kappa Lite Chain Free Serum 137.6 mg/L (3.3-19.4)
--- NOTE | 2024-12-13 13:12 | DVHPN2 ---
Progress Note Date Seen: Dec 13, 2024 Has the PT tested + for MRSA If YES, has PT been informed?: No Medical Necessity Reason Pt with a Central, PICC or Fol: Yes The following are medically ne: Pond Catheter Reason for pond catheter: Bladder Retention/Obstruc, Strict I&O Subjective Patient reports: No new complaints Review of Systems: Deferred Objective vital signs Vital Sign Date Time Temp Pulse Resp B/P (MAP) Pulse Ox O2 Delivery O2 Flow Rate FiO2 12/13/24 12:00 98.7 90 16 87/47 (60) 97 98.7 12/13/24 06:00 Nasal Cannula* 2 28 Total Intake and Output 12/12/24 12/12/24 12/13/24 15:00 23:00 07:00 Intake Total 150 ml 600 ml 250 ml Output Total 30 ml 5 ml Balance 150 ml 570 ml 245 ml medications Current Medications Medications Dose Ordered Sig/Shavon Route Start Time Stop Time Status Last Admin Dose Admin Acetaminophen 650 mg Q6HP PRN PO 12/04/24 03:30 12/13/24 04:13 650 MG Ondansetron HCl 4 mg Q4HP PRN IV 12/04/24 03:30 Diagnostic Test (Pha) 1 strip ACHS 12/04/24 07:00 12/13/24 12:06 1 STRIP Pantoprazole Sodium 40 mg BID IV 12/04/24 06:45 12/13/24 11:00 40 MG Acetaminophen/ Hydrocodone Bitart 1 tab Q4HPRN PRN PO 12/04/24 14:30 12/10/24 20:25 1 TAB Morphine Sulfate 1 mg Q4HPRN PRN IV 12/04/24 14:30 Tamsulosin HCl 0.4 mg QPM PO 12/04/24 18:00 12/12/24 18:33 0.4 MG Metoprolol Succinate 25 mg DAILY PO 12/05/24 10:00 Hold 12/09/24 09:30 25 MG Meropenem 50 ml @ 17 mls/hr Q12HR IV 12/05/24 22:00 12/13/24 10:56 17 MLS/HR Norepinephrine Bitartrate 250 ml @ 3.75 mls/hr Q24H IV 12/05/24 18:15 12/11/24 10:10 3.75 MLS/HR Calcium Acetate 1,334 mg TIDWMEALS PO 12/08/24 12:00 12/12/24 18:33 1,334 MG Tbo-Filgrastim 300 mcg DAILY SC 12/08/24 12:30 12/13/24 11:25 300 MCG Albumin Human 100 ml @ 100 mls/hr BETTYE IV 12/09/24 10:30 12/09/24 12:11 100 MLS/HR Micafungin Sodium 100 mg/Sodium Chloride 100 ml @ 100 mls/hr DAILY IV 12/10/24 10:00 12/13/24 11:24 100 MLS/HR Gabapentin 200 mg HS PO 12/10/24 22:00 12/12/24 22:01 200 MG Nystatin 5 ml QID MT 12/10/24 16:00 12/13/24 06:06 5 ML Daptomycin 0 ml @ 0 mls/hr PER PHARMACY IV 12/10/24 20:30 Daptomycin 500 mg/ Sodium Chloride 50 ml @ 100 mls/hr Q48H IV 12/11/24 15:00 12/11/24 16:17 100 MLS/HR Multivit/Ca Carb/ B Cmplx/FA/Prenat 1 tab DAILY PO 12/12/24 10:00 12/13/24 11:00 1 TAB Enteral Nutritional Formula 27.5 gm DAILY PO 12/12/24 10:00 12/12/24 09:23 27.5 GM Ergocalciferol 50,000 unit Q7D PO 12/12/24 08:45 12/12/24 09:38 50,000 UNIT Enteral Nutritional Formula 240 ml BIDWM PO 12/13/24 08:00 12/13/24 08:36 240 ML Midodrine 10 mg TID@0600,1200,1800 PO 12/13/24 08:15 12/13/24 08:43 10 MG Examination: GENERAL:Abnormal, LUNGS:Abnormal, MSK:Abnormal laboratory and microbiology Laboratory Tests 12/13/24 04:29 Test 12/13/24 04:29 Range/Units Serum Glucose 140 H 74-106 mg/dL Microbiology Date/Time Source Procedure Growth Status 12/11/24 15:31 Sputum Gram Stain - Final Resulted 12/11/24 15:31 Sputum Respiratory Culture - Preliminary Resulted 12/10/24 10:17 Sacrum Gram Stain - Final Resulted 12/10/24 10:17 Sacrum Wound Culture - Preliminary Resulted 12/10/24 10:17 Voided Urine Urine Culture - Preliminary Resulted 12/08/24 14:39 Blood Blood Culture - Preliminary NO GROWTH AFTER 72 HOURS OF INCUBATION. Resulted Problem List/Assessment/Plan Problem List/Assessment/Plan Acute kidney injury due to sepsis +urinary obstruction now needing HD subacute Gopal patient noted to have severe GOPAL post CABG 10/2024 Chronic kidney disease stage IIIB 09/2024 GFR 44 pancytopenia s/p BM biopsy 12/10/24 anemia status post PRBC Sepsis secondary to urinary tract infection Chronic urinary retention Pond catheter was removed by ER on this admission -> replaced Hyperkalemia Chronic CVA w/ residual left sided weakness Acute TIA (12/05/24) due to hypotension Hodgkin's lymphoma --GOPAL hemodynamic requiring HD , first treatment 12/08 recs HD today s/p BM biopsy pending results and Lymph node biopsy showing Hodgkin's lymphoma will f/u Once patient is off neutropenic precautions patient will need tunneled catheter for dialysis web services manager for chair time with [facility] dialysis Plan discussed with: Patient, Spouse My Orders My Orders Orders - SHARON HUERTA MD Procedure Category Date Status Time Hemodialysis Orders ORDERS 12/13/24 Transmitted 04:00 * Automobile Mechanic Assistant CONS 12/13/24 Transmitted Consult Dietary Evaluation Review Comments: 1) Ergocalciferol 50,000IU weekly 2) Jose L 1 pk daily, MVI w/ mineral 1 tab, Vit C 500mg BID, Zinc sulfate 220mg daily x 10 days 3) Advance to [id number] + renal special 80gm protein diet 4) Continue current plan of care Expected Outcomes/Goals: Advance diet to meet at least 75% estimated needs FU 2-3 days CC Plasma Assessment Blood Product Administration S: 11:05 SHARON HUERTA MD Dec 13, 2024 13:12
[2024-12-13] MEDS: MIDAZOLAM HCL 2MG/2ML 2ml VIAL (1mg/ml) ONE (13:34)
[2024-12-13] MEDS: HEPARIN SODIUM (PORCINE) 5000 UNITS/ML 1ML VIAL ONE (13:34)
[2024-12-13] MEDS: fentaNYL CITRATE 100 MCG/2 ML VL ONE (13:34)
[2024-12-13] MEDS: LIDOCAINE 2%HCL (LOCAL ANESTH.) INJ 20ML MDV ONE (13:35)
--- NOTE | 2024-12-13 14:34 | DVH ---
XY Insertion of Venous Cath, HISTORY: TD CATH PROCEDURE: Informed consent was obtained. The patient was placed supine on the interventional table. A limited localization ultrasound of the right neck base was obtained. The right neck base and upper chest were prepped with chlorhexidine which was allowed to dry and draped in the usual sterile fashio n. Time out was performed. IV sedation was administered. The skin and the soft tissues were infiltrat ed with 1% Lidocaine. With real-time ultrasound guidance, the internal jugular vein was accessed with a micropuncture kit, and an image documenting patency was recorded to PACS. A subcutaneous tunneled tract was created from the right upper chest to the venotomy site. A 14.5 [place] Path, 19 cm lo ng hemodialysis catheter was advanced through the tunneled tract. Fluoroscopy was used to advance a guidewire through the internal jugular vein into the inferior vena cava. Following serial dilatation, a 15 [place] peel-away sheath was introduced, though which was adva nced the catheter into the right atrium. The catheter tip position was confirmed with fluoroscopy. Th ere was satisfactory flow in both lumens. The catheter lumens were flushed with saline and heparin wa s left indwelling in the catheter. A post-procedure image of the chest was obtained. The neck incisio n site was closed with a Dermabond and dressed sterilely. The catheter was sutured at the skin surfac e and exit site also dressed sterilely. No immediate complication was identified. DAP 179 FLUOROSCOPY TIME: 1.8 minutes. SEDATION: Dr. Cristina Cabral was personally responsible for the administration of moderate sedation during the procedure performed, including the use of an independent trained observer who had no other duties during the procedure. The drugs utilized were IV fentanyl and versed (see nursing log for details). The total time of supervision by the attending physician was approximately 30 minutes. FINDINGS: Widely patent right IJV. Post procedure image demonstrates smooth course of the hemodialysi s catheter with the tip in the right atrium. IMPRESSION: Successful placement of 14.5 [place], 19 cm long hemodialysis catheter through right sourcing intern al jugular vein. Plan: Please contact IR for removal when no longer needed.
[2024-12-13] MEDS ORDERED: CEFEPIME 1GM/ 50ML 50 ML IV ONE (20:45)
[2024-12-13] MEDS: CEFEPIME 1GM/ 50ML 50 ML IV ONE (21:29)
--- NOTE | 2024-12-13 23:38 | DVHPN2 ---
Progress Note - Dictate Date Seen: Dec 13, 2024 Has the PT tested + for MRSA If YES, has PT been informed?: No Medical Necessity Reason Pt with a Central, PICC or Fol: Yes The following are medically ne: Pond Catheter Reason for pond catheter: Bladder Retention/Obstruc, Strict I&O Subjective Patient seen and examined at bedside. Remains on supplemental oxygen Overnight events reviewed. vital signs Vital Sign Date Time Temp Pulse Resp B/P (MAP) Pulse Ox O2 Delivery O2 Flow Rate FiO2 12/13/24 22:35 83/46 12/13/24 22:00 107 12/13/24 22:00 23 96 Nasal Cannula* 2 28 12/13/24 20:00 98.9 98.9 Total Intake and Output 12/12/24 12/12/24 12/13/24 15:00 23:00 07:00 Intake Total 150 ml 600 ml 250 ml Output Total 30 ml 5 ml Balance 150 ml 570 ml 245 ml medications Current Medications Medications Dose Ordered Sig/Shavon Route Start Time Stop Time Status Last Admin Dose Admin Acetaminophen 650 mg Q6HP PRN PO 12/04/24 03:30 12/13/24 04:13 650 MG Ondansetron HCl 4 mg Q4HP PRN IV 12/04/24 03:30 Diagnostic Test (Pha) 1 strip ACHS 12/04/24 07:00 12/13/24 21:44 1 STRIP Pantoprazole Sodium 40 mg BID IV 12/04/24 06:45 12/13/24 21:29 40 MG Tamsulosin HCl 0.4 mg QPM PO 12/04/24 18:00 12/13/24 18:20 0.4 MG Metoprolol Succinate 25 mg DAILY PO 12/05/24 10:00 Hold 12/09/24 09:30 25 MG Norepinephrine Bitartrate 250 ml @ 3.75 mls/hr Q24H IV 12/05/24 18:15 12/13/24 18:22 7.5 MLS/HR Calcium Acetate 1,334 mg TIDWMEALS PO 12/08/24 12:00 12/13/24 18:20 1,334 MG Tbo-Filgrastim 300 mcg DAILY SC 12/08/24 12:30 12/13/24 11:25 300 MCG Albumin Human 100 ml @ 100 mls/hr BETTYE IV 12/09/24 10:30 12/09/24 12:11 100 MLS/HR Micafungin Sodium 100 mg/Sodium Chloride 100 ml @ 100 mls/hr DAILY IV 12/10/24 10:00 12/13/24 11:24 100 MLS/HR Gabapentin 200 mg HS PO 12/10/24 22:00 12/13/24 21:34 200 MG Nystatin 5 ml QID MT 12/10/24 16:00 12/13/24 21:29 5 ML Daptomycin 0 ml @ 0 mls/hr PER PHARMACY IV 12/10/24 20:30 Daptomycin 500 mg/ Sodium Chloride 50 ml @ 100 mls/hr Q48H IV 12/11/24 15:00 12/11/24 16:17 100 MLS/HR Multivit/Ca Carb/ B Cmplx/FA/Prenat 1 tab DAILY PO 12/12/24 10:00 12/13/24 11:00 1 TAB Enteral Nutritional Formula 27.5 gm DAILY PO 12/12/24 10:00 12/12/24 09:23 27.5 GM Ergocalciferol 50,000 unit Q7D PO 12/12/24 08:45 12/12/24 09:38 50,000 UNIT Enteral Nutritional Formula 240 ml BIDWM PO 12/13/24 08:00 12/13/24 18:24 240 ML Midodrine 10 mg TID@0600,1200,1800 PO 12/13/24 08:15 12/13/24 18:19 10 MG Cefepime HCl 50 ml @ 12.5 mls/hr DAILY@2200 IV 12/14/24 22:00 objective Gen.: Patient lying in bed in no apparent distress. On supplemental oxygen. Head: Normocephalic, atraumatic. Eyes: EOMI/PERRLA. Ears: Normal hearing. Normal anatomy. Neck/trachea: Trachea midline, supple. Nose: Normal external anatomy. Mouth: Moist mucous membranes. Chest: Decreased air entry bilaterally. No wheezing or rhonchi. Cardiovascular: Positive S1, positive S2. Regular rate and rhythm. Abdomen: Positive bowel sounds in all 4 quadrants. Soft, non-tender, non- distended. : Deferred. Rectal: Deferred. Skin: Warm, dry. Intact. Extremities: 2+ radial pulses bilaterally. No lower extremity edema. Neuro: Awake, alert, oriented x3. No gross motor or sensory deficits. Cranial nerves II through XII intact. Gait not assessed. laboratory and microbiology Laboratory Tests 12/13/24 04:29 Test 12/13/24 04:29 Range/Units Serum Glucose 140 H 74-106 mg/dL Assessment/Plan Impression: Acute hypoxic respiratory failure Dependence on supplemental oxygen Possible urinary tract infection CAD, s/p 3-vessel CABG. Septic shock Cerebrovascular accident Left pleural effusion Atelectasis Events: Remains on supplemental oxygen, 2 LPM NC Taper O2 as tolerated Pt undergoing hemodialysis this PM Hodgkin's lymphoma - awaiting bone marrow biopsy results. On pressors for hemodynamic support Levophed 4 mcg/min Titrate to keep mean arterial pressure greater than 65 mmHg. Monitor blood pressure S/p tunneled catheter placement Arranging for chair time. Neutropenic precautions Leukopenia - on Filgrastim WBC trended up to 3.0 Hemodialysis per Nephrology Requiring Levophed during dialysis Head of bed elevation Aspiration precautions Continue antibiotics Continue antifungals Incentive spirometry Accu-Cheks Protonix BID Monitor hemoglobin Monitor platelets d/t thrombocytopenia Wound care HD per Nephrology Monitor renal function Nephrology recommendations appreciated CT head - positive CVA - plan for higher level of care. Brain MRI showed e/o multiple strokes Labs and imaging reviewed. Rest of plan as noted below. Plan: Supplemental oxygen Titrate to keep O2 sats above 92%. Pressors as necessary for hemodynamic support Titrate to keep mean arterial pressure greater than 65 mmHg. Echocardiogram reviewed, notable for EF 50% Cardiology recs appreciated. Continue antibiotics Incentive spirometry Accu-Cheks, ISS PRN. Monitor renal function. Monitor electrolytes. Supplement as necessary. Monitor ins and outs. Pond for strict ins and outs Plan for HLOC due to CVA. DVT prophylaxis. Prognosis: Poor given patient's multiple co-morbidities. Condition: Critical Rest of plan per hospitalist and other consultants. A total of 35 minutes of critical care time was spent reviewing the patient record, examining the patient, making a diagnostic and therapeutic plan, discussing this plan with the medical personnel, following up on diagnostic studies and following the patient for clinical stability excluding any and all procedures. At least 50% of this time was spent in direct, [id number] contact. Thank you, Dr. Smith, for allowing me to participate in this patient's care. Further recommendations will depend on the patient's clinical course. Please do not hesitate to contact me if you have any questions or concerns. This medical document was created using an electronic medical record system with [employer] dictation system. Although these documentations are being carefully reviewed, there may still be some phonetic and typographical changes. The errors are purely typographical, due to imperfection on the software program, and do not reflect any compromise in the patient's medical care. Dietary Evaluation Review Comments: 1) Ergocalciferol 50,000IU weekly 2) Jose L 1 pk daily, MVI w/ mineral 1 tab, Vit C 500mg BID, Zinc sulfate 220mg daily x 10 days 3) Advance to [id number] + renal special 80gm protein diet 4) Continue current plan of care Expected Outcomes/Goals: Advance diet to meet at least 75% estimated needs FU 2-3 days Plan discussed with: Other (VIJAY Gasca) Critical Care Time(min): 35 CC Plasma Assessment Blood Product Administration S: 11:05 JERAMY CAMARA MD Dec 13, 2024 23:38
[2024-12-14] VITALS (85 sets, daily range): BP systolic 81–142; BP diastolic 44–78; PULSE 83–120; RESP 11–23; TEMP 98.1–102.5; O2SAT 94–100
[2024-12-14] MEDS: NOREPINEPHRINE 8 MG/250ML KIT 250 ML IV SCH (05:15)
[2024-12-14 07:30] LABS: Hematocrit 28.9 % (41.0-53.0); Hemoglobin 9.6 g/dL (13.5-17.5); Mean Corpuscular Hemoglobin 28.3 pg (28.0-32.0); Mean Corpuscular Volume 85.8 fL (80.0-100.0); Platelet Count (auto) 69 10^3/uL (140-450); Red Blood Cells 3.37 10^6/uL (4.5-5.90); Red Cell Distribution Width 17.8 % (11.8-14.3); White Blood Cell 6.8 10^3/uL (4.4-10.8)
[2024-12-14 07:33] LABS: Alanine Aminotransferase 39 U/L (7-40); Anion Gap 10 (5-15); BUN/Creatinine Ratio 10.5 (10.0-20.0); Carbon Dioxide 23 mmol/L (20-31); Chloride 99 mmol/L (98-107); Potassium 3.7 mmol/L (3.5-5.1)
[2024-12-14 07:34] LABS: Aspartate Aminotransferase 99 U/L (13-40); Bilirubin, Total 7.4 mg/dL (0.2-1.0); Blood Urea Nitrogen 41 mg/dL (9-23); Calcium 8.2 mg/dL (8.7-10.4); Glucose 133 mg/dL (74-106); Sodium 132 mmol/L (136-145); Total Protein 5.1 g/dL (5.7-8.2)
[2024-12-14 07:37] LABS: Basophils % (manual) 0 (0.0-2.0); Blast Cells 0; Eosinophils % (manual) 0 (0-7); Metamyelocytes % 0; Myelocytes % 0; Promyelocytes % 0; Reactive Lymphocytes 0
[2024-12-14 07:43] LABS: Alkaline Phosphatase 1027 U/L (46-116)
[2024-12-14 08:36] LABS: Band Neutrophils % (manual) 4
[2024-12-14 08:37] LABS: Lymphocytes % (manual) 13 (10.0-50.0); Monocytes % (manual) 11 (0-12)
[2024-12-14 08:38] LABS: Anisocytosis Slight; Platelet Estimate Decreased; Tear Drop Cells FEW
[2024-12-14 10:07] LABS: QuantiFERON-TB Gold Plus Indeterminate (Negative)
--- NOTE | 2024-12-14 15:04 | DVHPN2 ---
Progress Note - Dictate Date Seen: Dec 14, 2024 Has the PT tested + for MRSA If YES, has PT been informed?: No Medical Necessity Reason Pt with a Central, PICC or Fol: Yes The following are medically ne: Pond Catheter Reason for pond catheter: Bladder Retention/Obstruc, Strict I&O Subjective Mr. Narciso White is a 59 years old right-handed gentleman with a history of hypertension, diabetes, dyslipidemia, coronary artery disease, heart attack, recent CABG, he was taken to the [facility] on 12/[facility]/2024 with a chief company of fever. But he was also developed acute stroke syndrome I have seen and examined the patient, discussed with his nurse, he was awake, oriented x3, but is very weak, he was going through hemodialysis he reports paresthesia and leg is under good control Bone marrow biopsy on 12/11/2024 WBC is 6.8 today UDS, 12/04/2024: Negative Urinalysis, 12/04/2024: WBC: 1, urine leukocyte esterase: Negative WBC/HB/PLT/MCV, 12/06/2024: 0.6/7.8/147/84.5 12/07/2024: 0.8/8.2/141/84.2 PTT/INR/PTT, 12/05/2024: 12.4/1.19/37.2 BUN/CR, 12/06/2024: 82/3.64, 12/12/2024: 48/3.67 HGB A1c, 12/04/2024: 5.9 TBI/AST/ALT/AP, 12/06/2024: 1.5/68/37/454, 12/10/2024: 3.5/88/36/616 12/12/2024: 5/76/29/825 TG/HDL/LDL/HDL, 12/06/2024: 138/79/20/11, 12/07/2024: 141/77/20/9 Vitamin B12, 11/2024: 1395 TSH, 11/2024: 0.7 SIFE, 12/06/2024: Iron/TIBC/Sat, 12/10/2024: 34/123/27.5 Ferritin, 12/10/2024: >3300 Bone marrow biopsy (12/11/24) Carotid Doppler, 12/07/2024: No hemodynamically significant stenosis within the carotid arteries Echocardiogram, 12/05/2024: Sinus rhythm. Left atrial enlargement with dilation of the sinuses of Valsalva. Mild RV enlargement. Moderate aortic sclerosis with diminished excursion of the leaflets and calcification of what appears to be the right and non coronary cusps. From the short axis view there does not appear to be limitation in motion. Normal pulmonic valve. Left ventricular function appears preserved. EF of about 50% with normal RV function. The tricuspid is normal. Doppler reveals some mild to moderate TR. No pericardial effusion masses or vegetations EMILY, 12/07/2024: Normal chamber dimensions. Valves appear to be structurally normal. Normal aortic mitral tricuspid and pulmonic valves Left ventricular function was preserved at 60% with normal RV function. Doppler reveals mild tricuspid insufficiency. Mild mitral insufficiency. No pericardial effusion masses or vegetations noted. The atrial appendage is normal. There are no thrombi present. Bubble study did not reveal crossover into the left side. Abnormal shunting otherwise present. MRI brain, 12/06/2024: 1. There is a small area of restricted diffusion involving the anterior body / genu of the corpus callosum consistent with an acute to subacute infarct. There is no evidence of acute hemorrhage. There is no mass effect. 2. There are additional scattered punctate foci of restricted diffusion in the bilateral frontal and right parietal lobe deep white matter which may represent tiny foci of acute to subacute infarcts Lymph node biopsy, 12/06/24: Hodgkin's lymphoma vital signs Vital Sign Date Time Temp Pulse Resp B/P (MAP) Pulse Ox O2 Delivery O2 Flow Rate FiO2 12/14/24 13:30 111 17 99/61 (74) 100 12/14/24 12:00 Nasal Cannula* 2 28 12/14/24 12:00 98.5 98.5 Total Intake and Output 12/13/24 12/13/24 12/14/24 15:00 23:00 07:00 Intake Total 50 ml 626.50 ml 268.75 ml Output Total 5 ml 20 ml Balance 50 ml 621.50 ml 248.75 ml medications Current Medications Medications Dose Ordered Sig/Shavon Route Start Time Stop Time Status Last Admin Dose Admin Acetaminophen 650 mg Q6HP PRN PO 12/04/24 03:30 12/14/24 06:24 650 MG Ondansetron HCl 4 mg Q4HP PRN IV 12/04/24 03:30 Diagnostic Test (Pha) 1 strip ACHS 12/04/24 07:00 12/14/24 11:49 1 STRIP Pantoprazole Sodium 40 mg BID IV 12/04/24 06:45 12/14/24 09:43 40 MG Tamsulosin HCl 0.4 mg QPM PO 12/04/24 18:00 12/13/24 18:20 0.4 MG Metoprolol Succinate 25 mg DAILY PO 12/05/24 10:00 Hold 12/09/24 09:30 25 MG Calcium Acetate 1,334 mg TIDWMEALS PO 12/08/24 12:00 12/14/24 12:17 1,334 MG Tbo-Filgrastim 300 mcg DAILY SC 12/08/24 12:30 12/14/24 09:45 300 MCG Albumin Human 100 ml @ 100 mls/hr BETTYE IV 12/09/24 10:30 12/09/24 12:11 100 MLS/HR Micafungin Sodium 100 mg/Sodium Chloride 100 ml @ 100 mls/hr DAILY IV 12/10/24 10:00 12/14/24 09:45 100 MLS/HR Gabapentin 200 mg HS PO 12/10/24 22:00 12/13/24 21:34 200 MG Nystatin 5 ml QID MT 12/10/24 16:00 12/14/24 12:17 5 ML Daptomycin 0 ml @ 0 mls/hr PER PHARMACY IV 12/10/24 20:30 Daptomycin 500 mg/ Sodium Chloride 50 ml @ 100 mls/hr Q48H IV 12/11/24 15:00 12/11/24 16:17 100 MLS/HR Multivit/Ca Carb/ B Cmplx/FA/Prenat 1 tab DAILY PO 12/12/24 10:00 12/13/24 11:00 1 TAB Enteral Nutritional Formula 27.5 gm DAILY PO 12/12/24 10:00 12/14/24 09:26 27.5 GM Ergocalciferol 50,000 unit Q7D PO 12/12/24 08:45 12/12/24 09:38 50,000 UNIT Enteral Nutritional Formula 240 ml BIDWM PO 12/13/24 08:00 12/14/24 08:00 240 ML Midodrine 10 mg TID@0600,1200,1800 PO 12/13/24 08:15 12/14/24 12:17 10 MG Cefepime HCl 50 ml @ 12.5 mls/hr DAILY@2200 IV 12/14/24 22:00 Norepinephrine Bitartrate 250 ml @ 1.875 mls/ hr Q24H IV 12/14/24 05:15 objective General: the patient is well developed and nourished. No acute distress. MENTAL STATUS: Subjective SPEECH, LANGUAGE, HIGHER CORTICAL FUNCTION: no aphasia or dysathria. CRANIAL NERVES: Pupils are equal, round and reactive. EOMs full and conjugate. No nystagmus. Facial sensation intact in all three divisions bilaterally. Mandibular strength intact. Facial muscles symmetrical and strength intact. SENSATION: Sensation to touch and pinprick is diminished distally in the lower extremities, but no kucd-jj-jarp differences MOTOR: Normal tone in the upper and lower extremity. Normal muscle bulk. No fasciculations. No abnormal movements or posturing. Muscle strength of the major groups in the upper extremities is: close to 4/5. He can move both legs, muscle power feels 3-4/5. REFLEXES: Deep tendon reflexes are symmetrical. No pathological reflexes. CEREBELLAR/COORDINATION: No ataxia in the upper extremities GAIT/STATION: deferred. laboratory and microbiology Laboratory Tests 12/14/24 06:36 Test 12/14/24 06:36 Range/Units Serum Glucose 133 H 74-106 mg/dL Problem List Recent acute stroke with left-sided weakness Acute stroke syndrome MRI evident multiple acute strokes (11/08/2024) Pancytopenia/rule out malignancy Anemia Fever/sepsis Septic shock Coronary artery disease with recent CABG Diabetic polyneuropathy Restless leg syndrome Anemia Elevated liver function tests Hodgkin's lymphoma Assessment/Plan Monitoring Supportive treatment LINDA Care IV antibiotics Aspirin 81 mg daily Lipitor 75 mg daily Gabapentin 200 mg in the evening Physical therapist GI prophylaxis Up to chair He is aware of neuropathy related foot care More recommendation per clinical course This medical document was created using an electronic medical record system with [employer] system. Although this document has been carefully reviewed, there may still be some phonetic and typographical errors. These areas are purely typographical due to imperfections of the software programs, and do not reflect any compromise in the patient's medical care. Prognosis poor Dietary Evaluation Review Comments: 1) Ergocalciferol 50,000IU weekly 2) Jose L 1 pk daily, MVI w/ mineral 1 tab, Vit C 500mg BID, Zinc sulfate 220mg daily x 10 days 3) Advance to [id number] + renal special 80gm protein diet 4) Continue current plan of care Expected Outcomes/Goals: Advance diet to meet at least 75% estimated needs FU 2-3 days Plan discussed with: Other CC Plasma Assessment Blood Product Administration S: 11:05 NIKOLAS PRATT MD Dec 14, 2024 15:04
--- NOTE | 2024-12-14 15:31 | DVHPN2 ---
Progress Note Date Seen: Dec 14, 2024 Has the PT tested + for MRSA If YES, has PT been informed?: No Medical Necessity Reason Pt with a Central, PICC or Fol: Yes The following are medically ne: Pond Catheter Reason for pond catheter: Bladder Retention/Obstruc, Strict I&O Subjective Patient reports: No new complaints Review of Systems: Deferred Objective vital signs Vital Sign Date Time Temp Pulse Resp B/P (MAP) Pulse Ox O2 Delivery O2 Flow Rate FiO2 12/14/24 13:30 111 17 99/61 (74) 100 12/14/24 12:00 Nasal Cannula* 2 28 12/14/24 12:00 98.5 98.5 Total Intake and Output 12/13/24 12/13/24 12/14/24 15:00 23:00 07:00 Intake Total 50 ml 626.50 ml 268.75 ml Output Total 5 ml 20 ml Balance 50 ml 621.50 ml 248.75 ml medications Current Medications Medications Dose Ordered Sig/Shavon Route Start Time Stop Time Status Last Admin Dose Admin Acetaminophen 650 mg Q6HP PRN PO 12/04/24 03:30 12/14/24 06:24 650 MG Ondansetron HCl 4 mg Q4HP PRN IV 12/04/24 03:30 Diagnostic Test (Pha) 1 strip ACHS 12/04/24 07:00 12/14/24 11:49 1 STRIP Pantoprazole Sodium 40 mg BID IV 12/04/24 06:45 12/14/24 09:43 40 MG Tamsulosin HCl 0.4 mg QPM PO 12/04/24 18:00 12/13/24 18:20 0.4 MG Metoprolol Succinate 25 mg DAILY PO 12/05/24 10:00 Hold 12/09/24 09:30 25 MG Calcium Acetate 1,334 mg TIDWMEALS PO 12/08/24 12:00 12/14/24 12:17 1,334 MG Tbo-Filgrastim 300 mcg DAILY SC 12/08/24 12:30 12/14/24 09:45 300 MCG Albumin Human 100 ml @ 100 mls/hr BETTYE IV 12/09/24 10:30 12/09/24 12:11 100 MLS/HR Micafungin Sodium 100 mg/Sodium Chloride 100 ml @ 100 mls/hr DAILY IV 12/10/24 10:00 12/14/24 09:45 100 MLS/HR Gabapentin 200 mg HS PO 12/10/24 22:00 12/13/24 21:34 200 MG Nystatin 5 ml QID MT 12/10/24 16:00 12/14/24 12:17 5 ML Daptomycin 0 ml @ 0 mls/hr PER PHARMACY IV 12/10/24 20:30 Daptomycin 500 mg/ Sodium Chloride 50 ml @ 100 mls/hr Q48H IV 12/11/24 15:00 12/11/24 16:17 100 MLS/HR Multivit/Ca Carb/ B Cmplx/FA/Prenat 1 tab DAILY PO 12/12/24 10:00 12/13/24 11:00 1 TAB Enteral Nutritional Formula 27.5 gm DAILY PO 12/12/24 10:00 12/14/24 09:26 27.5 GM Ergocalciferol 50,000 unit Q7D PO 12/12/24 08:45 12/12/24 09:38 50,000 UNIT Enteral Nutritional Formula 240 ml BIDWM PO 12/13/24 08:00 12/14/24 08:00 240 ML Midodrine 10 mg TID@0600,1200,1800 PO 12/13/24 08:15 12/14/24 12:17 10 MG Cefepime HCl 50 ml @ 12.5 mls/hr DAILY@2200 IV 12/14/24 22:00 Norepinephrine Bitartrate 250 ml @ 1.875 mls/ hr Q24H IV 12/14/24 05:15 Examination: GENERAL:Abnormal, MSK:Abnormal, SKIN:Abnormal laboratory and microbiology Laboratory Tests 12/14/24 06:36 Test 12/14/24 06:36 Range/Units Serum Glucose 133 H 74-106 mg/dL Microbiology Date/Time Source Procedure Growth Status 12/12/24 13:20 Stool Stool Culture - Final Complete 12/12/24 13:20 Stool Shiga Toxin I & II - Final Complete 12/11/24 15:31 Sputum Gram Stain - Final Complete 12/11/24 15:31 Sputum Respiratory Culture - Final Complete 12/10/24 10:17 Sacrum Gram Stain - Final Complete 12/10/24 10:17 Wound Culture - Final Enterococcus faecalis Presumptive Halima albicans Complete 12/10/24 10:17 Voided Urine Urine Culture - Final Complete 12/08/24 14:39 Blood Blood Culture - Final NO GROWTH AFTER 5 DAYS OF INCUBATION. 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 for chair time with [facility] dialysis Plan discussed with: Other My Orders My Orders Orders - SHARON HUERTA MD Procedure Category Date Status Time Hemodialysis Orders ORDERS 12/14/24 Transmitted 12:42 Dietary Evaluation Review Comments: 1) Ergocalciferol 50,000IU weekly 2) Jose L 1 pk daily, MVI w/ mineral 1 tab, Vit C 500mg BID, Zinc sulfate 220mg daily x 10 days 3) Advance to [id number] + renal special 80gm protein diet 4) Continue current plan of care Expected Outcomes/Goals: Advance diet to meet at least 75% estimated needs FU 2-3 days CC Plasma Assessment Blood Product Administration S: 11:05 SHARON HUERTA MD Dec 14, 2024 15:31
--- NOTE | 2024-12-14 20:27 | DVHPN2 ---
Assessment/Plan Assessment/Plan Mr. Vu is a 59-year-old male with a past medical history of coronary artery disease status post CABG in October 2024, ischemic stroke oct 2024, status post bed bound and chronic indwelling Jones, hypertension, and hyperlipidemia. He was brought to the ER by the family with a chief complaint of heavy breathing, f ever, chills, and anuria for the past 3 days. Per the daughter at bedside, the patient had never followed up with urology or cardiology after he was discharged from this facility on 11/07/24. He usually makes 1600 cc of urine a day. Per daughter, patient has a wound in his back and is also draining a white pus-like substance. Patient also reported dysuria and abdominal discomfort. He also reports heavy breathing and mild nonproductive cough. On arrival, patient was febrile at 101.2F, tachycardic, blood pressure 144/77, and requiring 4 L oxygen supplementation. White cell count was 3.6, hemoglobin 8.8, and hematocrit 23. Patient had hyperkalemia, potassium was 6 which downtrended to 5.4. Creatinine was 2.9 and BUN 77. Patient's Jones catheter was removed in ED after being in place for more than a month, the patient does not urinate on his own, bladder scan showed empty bladder, nephrology was consulted. Chest x-ray shows bibasilar consolidation. The patient has mildly elevated transaminases. Cardiology consult ed given CT findings of substernal soft tissue density: new echo ordered, azithromycin was added to cover atypicals and hyperkalemia protocol was done, patient is having febrile neutropenia, CT scan of abdomen showed right groin lymphadenopathy, lymphadenopathy biopsy was done. 1 RBC was transfused per cardiology. 12/06/24 at 5:30 pm, patient had an episode of AMS, weakness, and hy potension, increased left leg weakness and left facial droop. CT scan negative for stroke or hemorrhage, patient was placed on Levophed and weaned off at 8 pm, fluids IV 100 cc during the night, today x-ray showed mild congestion. IV fluids reduced to 60cc and furosemide IV was started. New MRI showed multiple small strokes in different places; probably cardiembolic etiology. Neurology Dr. Cabral, stated no need for CTA or thrombectomy, also transfer to [facility] was planned but according to the center he had his CABG, patient can be managed in [facility]. Also, nephrology consulted. EMILY was ordered and will be done today. Worsening renal function; nephrology will discuss possible hemodialysis with the patient and his family. EMILY negative, neupogen started, patient had fever last night, new pancultures, renal function is trending high, dialysis catheter placed on the left, new K normal on place, possible HD. ID was consulted, vancomycin was changed for daptomycin, further studies were ordered to study possible source of infection, WBC is trending high, last fever 12/10 4pm, HD was done but patient needed levophed 2mcg, bilirubin is trending high, EPO was started by Nephro. lymph node biopsy: Hodgkin lymphoma, diagnosis disccused with family, patient still having fevers and diarrhea, necrotic ulcer assessed by dr Jacinto no need of intervention. seen by me today during rounds, conversing with family, midodrine increased further. HD running. physical exam alert oriented x3 clear breath sounds s1 s2 rrr no murmur abdomen soft nontender trace LE edema R IJ permacath, L IJ squinton labs ekg imaging reviewed assessment and plan Problem List/Assessment/Plan Hematology #Hodgkin Lymphoma #Pancitopenia #Febrile neutropenia #Retroperitoneal lymphadenopathy #Normochromic and normocytic Anemia multifactorial: rule out neoplasm, CKD Lymph node biopsy done: Hodgkin Lymphoma Bone marrow biopsy pending Check hepatitis panel NOLBERTO double-stranded DNA CMV Christine-Deshpande virus, protein electrophoresis: Igg for CMV and EBV positive 2RBC given FOB negative Dry Plasterer Helper on board Neupogen 6 days today: wbc stable Dr Pastor stated that the patient will need chemotherapy when he is stable as outpatient Neurology #Acute metabolic/hypoxic encephalopathy due to stroke and sepsis #Possible acute cardioembolic stroke: corpus callosum, bilateral frontal and right parietal #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 There is no evidence of acute hemorrhage. There is no mass effect. There are additional scattered punctate foci of restricted diffusion in the bilateral frontal and right parietal lobe deep white matter which may represent tiny foci of acute to subacute infarcts. Bran MRI oct 2024: There prominent diffusion restriction also seen within the genu and anterior body of the corpus callosum. There is an apparent punctate additional focus of diffusion restriction in the medulla Neurology on board Aspirin continue Continue atorvastatin 40 mg EMILY normal Carotid duplex: No hemodynamically significant stenosis within the carotid arteries Pregabalin trial per neuro Need of PT Cardiology #Severe coronary artery disease status post triple-vessel CABG #Substernal soft tissue density likely secondary to recent CABG #Possible acute on Chronic HFpEF, NYHA class III Cardiology signed off 12/05/24 ECHO: Left atrial enlargement with dilation of the sinuses of Valsalva. Mild RV enlargement. Moderate aortic sclerosis with diminished excursion of the leaflets and calcification of what appears to be the right and non coronary cusps. Left ventricular function appears preserved. EF of about 50% with normal RV function. The tricuspid is normal. Doppler reveals some mild to moderate TR. No pericardial effusion masses or vegetations. 12/04/24: Substernal soft tissue density and stranding without a large fluid collection. Fat stranding is nonspecific and should be correlated with timing of surgery. Alternatively this could reflect an infectious or inflammatory etiology. Small bilateral pleural effusions and passive atelectasis. Cardiomegaly. Aspirin continue Continue atorvastatin 40 mg Hold on other GDMT: GOPAL and shock HD Levophed needed during dialysis Albumin IV Midodrine increase Pulmonology #Septic shock due to possible pneumonia #Acute respiratory failure #PNA gram+/gram- #Small bilateral pleural effusions #Passive atelectasis #Mixed base disorder: respiratory alkalosis and metabolic acidosis Outside Event Sales Specialist and critical care on board Meropenem + Micafungin MRSA nares negative O2 2LT GI #Transaminitis secondary to chronic liver disease #Gallbladder polyps #Hyperbilirubinemia #Questionable typhlitis #Diarrhea in immunocompromised patoent Coarsened liver echotexture suggestive of chronic liver disease. Trace ascites. Partially visualized trace right pleural effusion. Gallbladder polyps measuring up to 0.4 cm FOB negative MRCP negative for acute pathology GGT high, AP high, bilirubins are trending high Metamucil Renal #GOPAL due to septic shock #ESRD #Dialysis urgency #Severe fluid overload #Hyperkalemia secondary to CKD #Hyperparathyroidism #Mixed base disorder: respiratory alkalosis and metabolic acidosis #Chronic indwelling Jones Urine culture came negative Trolley Coach Driver on board HD on the 12/08, 12/09, 12/11: possible today EPO per nephro Infectious #Febrile neutropenia #Septic shock due to possible pneumonia? #Possible septic emboli? #sacral wound #Rule out opportunistic infections #Possible tiflitis EMILY neg Daptomycin + Meropenem + Micafungin Patient had a sacral wound, cultures ordered: prelim yeast and gram + Multiple studies ordered to rule out opportunistic infection on severe immunocompromised patient Last fever 12/11 Dr Jacinto assessed the wound: no need for surgery for now Endocrinology #Hypoglycemia #Prediabetes Diabetic diet Stop insulin critical care tanmya spent 55 minutes Plan discussed with: Patient, Spouse Date of Service: Dec 14, 2024 Billing Provider: RADHA ROWLEY MD Common Visit Codes: 01488-[id number] CARE 30-74 MIN RADHA ROWLEY MD Dec 14, 2024 20:27
[2024-12-14] MEDS: CEFEPIME 1GM/ 50ML 50 ML IV SCH (22:09)
[2024-12-15] VITALS (96 sets, daily range): BP systolic 83–155; BP diastolic 47–79; PULSE 68–126; RESP 13–22; TEMP 98.1–101.2; O2SAT 89–100
--- NOTE | 2024-12-15 09:04 | DVHPN2 ---
Progress Note - Dictate Date Seen: Dec 14, 2024 Has the PT tested + for MRSA If YES, has PT been informed?: No Medical Necessity Reason Pt with a Central, PICC or Fol: Yes The following are medically ne: Pond Catheter Reason for pond catheter: Bladder Retention/Obstruc, Strict I&O Subjective Patient seen and examined at bedside. Remains on supplemental oxygen Overnight events reviewed. vital signs Vital Sign Date Time Temp Pulse Resp B/P (MAP) Pulse Ox O2 Delivery O2 Flow Rate FiO2 12/15/24 08:00 98.1 73 15 90/52 (65) 99 98.1 12/15/24 06:00 Nasal Cannula* 2 28 Total Intake and Output 12/14/24 12/14/24 12/15/24 15:00 23:00 07:00 Intake Total 141.250 ml 545.000 ml 566.875 ml Output Total 15 ml 0 ml Balance 141.250 ml 530.000 ml 566.875 ml medications Current Medications Medications Dose Ordered Sig/Shavon Route Start Time Stop Time Status Last Admin Dose Admin Acetaminophen 650 mg Q6HP PRN PO 12/04/24 03:30 12/15/24 04:19 650 MG Ondansetron HCl 4 mg Q4HP PRN IV 12/04/24 03:30 Diagnostic Test (Pha) 1 strip ACHS 12/04/24 07:00 12/15/24 06:21 1 STRIP Pantoprazole Sodium 40 mg BID IV 12/04/24 06:45 12/15/24 08:33 40 MG Tamsulosin HCl 0.4 mg QPM PO 12/04/24 18:00 12/14/24 17:07 0.4 MG Metoprolol Succinate 25 mg DAILY PO 12/05/24 10:00 Hold 12/09/24 09:30 25 MG Calcium Acetate 1,334 mg TIDWMEALS PO 12/08/24 12:00 12/15/24 08:33 1,334 MG Tbo-Filgrastim 300 mcg DAILY SC 12/08/24 12:30 12/15/24 08:34 300 MCG Albumin Human 100 ml @ 100 mls/hr BETTYE IV 12/09/24 10:30 12/09/24 12:11 100 MLS/HR Micafungin Sodium 100 mg/Sodium Chloride 100 ml @ 100 mls/hr DAILY IV 12/10/24 10:00 12/15/24 08:34 100 MLS/HR Gabapentin 200 mg HS PO 12/10/24 22:00 12/14/24 22:06 200 MG Nystatin 5 ml QID MT 12/10/24 16:00 12/15/24 05:27 5 ML Daptomycin 0 ml @ 0 mls/hr PER PHARMACY IV 12/10/24 20:30 Daptomycin 500 mg/ Sodium Chloride 50 ml @ 100 mls/hr Q48H IV 12/11/24 15:00 12/11/24 16:17 100 MLS/HR Multivit/Ca Carb/ B Cmplx/FA/Prenat 1 tab DAILY PO 12/12/24 10:00 12/15/24 08:33 1 TAB Enteral Nutritional Formula 27.5 gm DAILY PO 12/12/24 10:00 12/14/24 09:26 27.5 GM Ergocalciferol 50,000 unit Q7D PO 12/12/24 08:45 12/12/24 09:38 50,000 UNIT Enteral Nutritional Formula 240 ml BIDWM PO 12/13/24 08:00 12/15/24 08:35 240 ML Midodrine 10 mg TID@0600,1200,1800 PO 12/13/24 08:15 12/15/24 05:27 10 MG Cefepime HCl 50 ml @ 12.5 mls/hr DAILY@2200 IV 12/14/24 22:00 12/14/24 22:09 12.5 MLS/HR Norepinephrine Bitartrate 250 ml @ 1.875 mls/ hr Q24H IV 12/14/24 05:15 12/15/24 02:15 3.75 MLS/HR objective Gen.: Patient lying in bed in no apparent distress. On supplemental oxygen. Head: Normocephalic, atraumatic. Eyes: EOMI/PERRLA. Ears: Normal hearing. Normal anatomy. Neck/trachea: Trachea midline, supple. Nose: Normal external anatomy. Mouth: Moist mucous membranes. Chest: Decreased air entry bilaterally. No wheezing or rhonchi. Cardiovascular: Positive S1, positive S2. Regular rate and rhythm. Abdomen: Positive bowel sounds in all 4 quadrants. Soft, non-tender, non- distended. : Deferred. Rectal: Deferred. Skin: Warm, dry. Intact. Extremities: 2+ radial pulses bilaterally. No lower extremity edema. Neuro: Awake, alert, oriented x3. No gross motor or sensory deficits. Cranial nerves II through XII intact. Gait not assessed. laboratory and microbiology Laboratory Tests 12/14/24 06:36 Test 12/14/24 06:36 Range/Units Serum Glucose 133 H 74-106 mg/dL Assessment/Plan Impression: Acute hypoxic respiratory failure Dependence on supplemental oxygen Possible urinary tract infection CAD, s/p 3-vessel CABG. Septic shock Cerebrovascular accident Left pleural effusion Atelectasis Events: Remains on supplemental oxygen, 3 LPM NC Taper O2 as tolerated Pt uinderwent hemodialysis yesterday Hodgkin's lymphoma - awaiting bone marrow biopsy results. On pressors for hemodynamic support Levophed 3 mcg/min Titrate to keep mean arterial pressure greater than 65 mmHg. Improving pressor requirements Monitor blood pressure S/p tunneled catheter placement Arranging for chair time. Neutropenic precautions Leukopenia - on Filgrastim WBC trended up to 6.8 Hemodialysis per Nephrology Requiring Levophed during dialysis Head of bed elevation Aspiration precautions Continue antibiotics Continue antifungals Incentive spirometry Accu-Cheks Protonix BID Monitor hemoglobin Monitor platelets d/t thrombocytopenia Wound care HD per Nephrology Monitor renal function Nephrology recommendations appreciated Family updated at bedside. CT head - positive CVA - plan for higher level of care. Brain MRI showed e/o multiple strokes Labs and imaging reviewed. Rest of plan as noted below. Plan: Supplemental oxygen Titrate to keep O2 sats above 92%. Pressors as necessary for hemodynamic support Titrate to keep mean arterial pressure greater than 65 mmHg. Echocardiogram reviewed, notable for EF 50% Cardiology recs appreciated. Continue antibiotics Incentive spirometry Accu-Cheks, ISS PRN. Monitor renal function. Monitor electrolytes. Supplement as necessary. Monitor ins and outs. Pond for strict ins and outs Plan for HLOC due to CVA. DVT prophylaxis. Prognosis: Poor given patient's multiple co-morbidities. Condition: Critical Rest of plan per hospitalist and other consultants. A total of 35 minutes of critical care time was spent reviewing the patient record, examining the patient, making a diagnostic and therapeutic plan, discussing this plan with the medical personnel, following up on diagnostic studies and following the patient for clinical stability excluding any and all procedures. At least 50% of this time was spent in direct, [id number] contact. Thank you, Dr. Smith, for allowing me to participate in this patient's care. Further recommendations will depend on the patient's clinical course. Please do not hesitate to contact me if you have any questions or concerns. This medical document was created using an electronic medical record system with [employer] system. Although these documentations are being carefully reviewed, there may still be some phonetic and typographical changes. The errors are purely typographical, due to imperfection on the software program, and do not reflect any compromise in the patient's medical care. Dietary Evaluation Review Comments: 1) Ergocalciferol 50,000IU weekly 2) Jose L 1 pk daily, MVI w/ mineral 1 tab, Vit C 500mg BID, Zinc sulfate 220mg daily x 10 days 3) Advance to [id number] + renal special 80gm protein diet 4) Continue current plan of care Expected Outcomes/Goals: Advance diet to meet at least 75% estimated needs FU 2-3 days Plan discussed with: Patient, Other (VIJAY Latif) CC Plasma Assessment Blood Product Administration S: 11:05 JERAMY CAMARA MD Dec 15, 2024 09:04
--- NOTE | 2024-12-15 11:29 | DVHPN2 ---
Assessment/Plan Assessment/Plan Mr. Vu is a 59-year-old male with a past medical history of coronary artery disease status post CABG in October 2024, ischemic stroke oct 2024, status post bed bound and chronic indwelling Jones, hypertension, and hyperlipidemia. He was brought to the ER by the family with a chief complaint of heavy breathing, f ever, chills, and anuria for the past 3 days. Per the daughter at bedside, the patient had never followed up with urology or cardiology after he was discharged from this facility on 11/07/24. He usually makes 1600 cc of urine a day. Per daughter, patient has a wound in his back and is also draining a white pus-like substance. Patient also reported dysuria and abdominal discomfort. He also reports heavy breathing and mild nonproductive cough. On arrival, patient was febrile at 101.2F, tachycardic, blood pressure 144/77, and requiring 4 L oxygen supplementation. White cell count was 3.6, hemoglobin 8.8, and hematocrit 23. Patient had hyperkalemia, potassium was 6 which downtrended to 5.4. Creatinine was 2.9 and BUN 77. Patient's Jones catheter was removed in ED after being in place for more than a month, the patient does not urinate on his own, bladder scan showed empty bladder, nephrology was consulted. Chest x-ray shows bibasilar consolidation. The patient has mildly elevated transaminases. Cardiology consult ed given CT findings of substernal soft tissue density: new echo ordered, azithromycin was added to cover atypicals and hyperkalemia protocol was done, patient is having febrile neutropenia, CT scan of abdomen showed right groin lymphadenopathy, lymphadenopathy biopsy was done. 1 RBC was transfused per cardiology. 12/06/24 at 5:30 pm, patient had an episode of AMS, weakness, and hy potension, increased left leg weakness and left facial droop. CT scan negative for stroke or hemorrhage, patient was placed on Levophed and weaned off at 8 pm, fluids IV 100 cc during the night, today x-ray showed mild congestion. IV fluids reduced to 60cc and furosemide IV was started. New MRI showed multiple small strokes in different places; probably cardiembolic etiology. Neurology Dr. Cabral, stated no need for CTA or thrombectomy, also transfer to [facility] was planned but according to the center he had his CABG, patient can be managed in [facility]. Also, nephrology consulted. EMILY was ordered and will be done today. Worsening renal function; nephrology will discuss possible hemodialysis with the patient and his family. EMILY negative, neupogen started, patient had fever last night, new pancultures, renal function is trending high, dialysis catheter placed on the left, new K normal on place, possible HD. ID was consulted, vancomycin was changed for daptomycin, further studies were ordered to study possible source of infection, WBC is trending high, last fever 12/10 4pm, HD was done but patient needed levophed 2mcg, bilirubin is trending high, EPO was started by Nephro. lymph node biopsy: Hodgkin lymphoma, diagnosis disccused with family, patient still having fevers and diarrhea, necrotic ulcer assessed by dr Jacinto no need of intervention. seen by me today during rounds, increased midodrine to 15 TID. levo off overnight, restarted in the morning. titrate as tolerable physical exam alert oriented x3 clear breath sounds s1 s2 rrr no murmur abdomen soft nontender trace LE edema R IJ permacath, L IJ de labs ekg imaging reviewed assessment and plan Problem List/Assessment/Plan Hematology #Hodgkin Lymphoma #Pancitopenia #Febrile neutropenia #Retroperitoneal lymphadenopathy #Normochromic and normocytic Anemia multifactorial: rule out neoplasm, CKD Lymph node biopsy done: Hodgkin Lymphoma Bone marrow biopsy pending Check hepatitis panel NOLBERTO double-stranded DNA CMV Christine-Deshpande virus, protein electrophoresis: Igg for CMV and EBV positive 2RBC given FOB negative 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 Neupogen 6 days today: wbc stable Dr Pastor stated that the patient will need chemotherapy when he is stable as outpatient Neurology #Acute metabolic/hypoxic encephalopathy due to stroke and sepsis #Possible acute cardioembolic stroke: corpus callosum, bilateral frontal and right parietal #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 There is no evidence of acute hemorrhage. There is no mass effect. There are additional scattered punctate foci of restricted diffusion in the bilateral frontal and right parietal lobe deep white matter which may represent tiny foci of acute to subacute infarcts. Bran MRI oct 2024: There prominent diffusion restriction also seen within the genu and anterior body of the corpus callosum. There is an apparent punctate additional focus of diffusion restriction in the medulla Neurology on board Aspirin continue Continue atorvastatin 40 mg EMILY normal Carotid duplex: No hemodynamically significant stenosis within the carotid arteries Pregabalin trial per neuro Need of PT Cardiology #Severe coronary artery disease status post triple-vessel CABG #Substernal soft tissue density likely secondary to recent CABG #Possible acute on Chronic HFpEF, NYHA class III Cardiology signed off 12/05/24 ECHO: Left atrial enlargement with dilation of the sinuses of Valsalva. Mild RV enlargement. Moderate aortic sclerosis with diminished excursion of the leaflets and calcification of what appears to be the right and non coronary cusps. Left ventricular function appears preserved. EF of about 50% with normal RV function. The tricuspid is normal. Doppler reveals some mild to moderate TR. No pericardial effusion masses or vegetations. 12/04/24: Substernal soft tissue density and stranding without a large fluid collection. Fat stranding is nonspecific and should be correlated with timing of surgery. Alternatively this could reflect an infectious or inflammatory etiology. Small bilateral pleural effusions and passive atelectasis. Cardiomegaly. Aspirin continue Continue atorvastatin 40 mg Hold on other GDMT: GOPAL and shock HD Levophed needed during dialysis Albumin IV Midodrine increase Pulmonology #Septic shock due to possible pneumonia #Acute respiratory failure #PNA gram+/gram- #Small bilateral pleural effusions #Passive atelectasis #Mixed base disorder: respiratory alkalosis and metabolic acidosis Medicaid Specialist and critical care on board Meropenem + Micafungin MRSA nares negative O2 2LT GI #Transaminitis secondary to chronic liver disease #Gallbladder polyps #Hyperbilirubinemia #Questionable typhlitis #Diarrhea in immunocompromised patoent Coarsened liver echotexture suggestive of chronic liver disease. Trace ascites. Partially visualized trace right pleural effusion. Gallbladder polyps measuring up to 0.4 cm FOB negative MRCP negative for acute pathology GGT high, AP high, bilirubins are trending high Metamucil Renal #GOPAL due to septic shock #ESRD #Dialysis urgency #Severe fluid overload #Hyperkalemia secondary to CKD #Hyperparathyroidism #Mixed base disorder: respiratory alkalosis and metabolic acidosis #Chronic indwelling Jones Urine culture came negative [employer] on board HD on the 12/08, 12/09, 12/11: possible today EPO per nephro Infectious #Febrile neutropenia #Septic shock due to possible pneumonia? #Possible septic emboli? #sacral wound #Rule out opportunistic infections #Possible tiflitis EMILY neg Daptomycin + Meropenem + Micafungin Patient had a sacral wound, cultures ordered: prelim yeast and gram + Multiple studies ordered to rule out opportunistic infection on severe immunocompromised patient Last fever 12/11 Dr Jacinto assessed the wound: no need for surgery for now Endocrinology #Hypoglycemia #Prediabetes Diabetic diet Stop insulin critical care timashley spent 55 minutes Plan discussed with: Patient My Orders Orders - RADHA ROWLEY MD Procedure Category Date Status Time Midodrine Tablet PHA 12/15/24 Verified (Proamatine Tablet) 12:00 Date of Service: Dec 15, 2024 Billing Provider: RADHA ROWLEY MD Common Visit Codes: 19769-[id number] CARE 30-74 MIN RADHA ROWLEY MD Dec 15, 2024 11:29
[2024-12-15] MEDS: MIDODRINE HCL 10 MG TAB PO SCH (12:00)
--- NOTE | 2024-12-15 19:47 | DVHPN2 ---
Progress Note - Dictate Date Seen: Dec 15, 2024 Has the PT tested + for MRSA If YES, has PT been informed?: No Medical Necessity Reason Pt with a Central, PICC or Fol: Yes The following are medically ne: Pond Catheter Reason for pond catheter: Bladder Retention/Obstruc, Strict I&O Subjective Patient seen and examined at bedside. Remains on supplemental oxygen Overnight events reviewed. vital signs Vital Sign Date Time Temp Pulse Resp B/P (MAP) Pulse Ox O2 Delivery O2 Flow Rate FiO2 12/15/24 18:15 92 15 122/58 (79) 99 12/15/24 18:00 Nasal Cannula* 2 28 12/15/24 16:00 99.8 99.8 Total Intake and Output 12/14/24 12/14/24 12/15/24 15:00 23:00 07:00 Intake Total 141.250 ml 545.000 ml 566.875 ml Output Total 15 ml 0 ml Balance 141.250 ml 530.000 ml 566.875 ml medications Current Medications Medications Dose Ordered Sig/Shavon Route Start Time Stop Time Status Last Admin Dose Admin Acetaminophen 650 mg Q6HP PRN PO 12/04/24 03:30 12/15/24 04:19 650 MG Ondansetron HCl 4 mg Q4HP PRN IV 12/04/24 03:30 Diagnostic Test (Pha) 1 strip ACHS 12/04/24 07:00 12/15/24 17:28 1 STRIP Pantoprazole Sodium 40 mg BID IV 12/04/24 06:45 12/15/24 08:33 40 MG Calcium Acetate 1,334 mg TIDWMEALS PO 12/08/24 12:00 12/15/24 17:26 1,334 MG Tbo-Filgrastim 300 mcg DAILY SC 12/08/24 12:30 12/15/24 08:34 300 MCG Albumin Human 100 ml @ 100 mls/hr BETTYE IV 12/09/24 10:30 12/09/24 12:11 100 MLS/HR Micafungin Sodium 100 mg/Sodium Chloride 100 ml @ 100 mls/hr DAILY IV 12/10/24 10:00 12/15/24 08:34 100 MLS/HR Gabapentin 200 mg HS PO 12/10/24 22:00 12/14/24 22:06 200 MG Nystatin 5 ml QID MT 12/10/24 16:00 12/15/24 17:26 5 ML Daptomycin 0 ml @ 0 mls/hr PER PHARMACY IV 12/10/24 20:30 Daptomycin 500 mg/ Sodium Chloride 50 ml @ 100 mls/hr Q48H IV 12/11/24 15:00 12/15/24 16:01 100 MLS/HR Multivit/Ca Carb/ B Cmplx/FA/Prenat 1 tab DAILY PO 12/12/24 10:00 12/15/24 08:33 1 TAB Enteral Nutritional Formula 27.5 gm DAILY PO 12/12/24 10:00 12/14/24 09:26 27.5 GM Ergocalciferol 50,000 unit Q7D PO 12/12/24 08:45 12/12/24 09:38 50,000 UNIT Enteral Nutritional Formula 240 ml BIDWM PO 12/13/24 08:00 12/15/24 18:07 240 ML Cefepime HCl 50 ml @ 12.5 mls/hr DAILY@2200 IV 12/14/24 22:00 12/14/24 22:09 12.5 MLS/HR Norepinephrine Bitartrate 250 ml @ 1.875 mls/ hr Q24H IV 12/14/24 05:15 12/15/24 02:15 3.75 MLS/HR Midodrine 15 mg TID@0600,1200,1800 PO 12/15/24 12:00 12/15/24 17:26 15 MG objective Gen.: Patient lying in bed in no apparent distress. On supplemental oxygen. Head: Normocephalic, atraumatic. Eyes: EOMI/PERRLA. Ears: Normal hearing. Normal anatomy. Neck/trachea: Trachea midline, supple. Nose: Normal external anatomy. Mouth: Moist mucous membranes. Chest: Decreased air entry bilaterally. No wheezing or rhonchi. Cardiovascular: Positive S1, positive S2. Regular rate and rhythm. Abdomen: Positive bowel sounds in all 4 quadrants. Soft, non-tender, non- distended. : Deferred. Rectal: Deferred. Skin: Warm, dry. Intact. Extremities: 2+ radial pulses bilaterally. No lower extremity edema. Neuro: Awake, alert, oriented x3. No gross motor or sensory deficits. Cranial nerves II through XII intact. Gait not assessed. laboratory and microbiology Laboratory Tests 12/14/24 06:36 Test 12/14/24 06:36 Range/Units Serum Glucose 133 H 74-106 mg/dL Assessment/Plan Impression: Acute hypoxic respiratory failure Dependence on supplemental oxygen Possible urinary tract infection CAD, s/p 3-vessel CABG. Septic shock Cerebrovascular accident Left pleural effusion Atelectasis Events: Remains on supplemental oxygen, 3 LPM NC Taper O2 as tolerated Hemodialysis per Nephrology - HD on 12/17/24 next Hodgkin's lymphoma - awaiting bone marrow biopsy results. On pressors for hemodynamic support On Levophed Titrate to keep mean arterial pressure greater than 65 mmHg. Levophed was off for a few hours, resumed due to low blood pressure Monitor blood pressure On midodrine S/p tunneled catheter placement Arranging for chair time. Neutropenic precautions Leukopenia - on Filgrastim Monitor WBC Hemodialysis per Nephrology Requiring Levophed during dialysis Nephrology recommendations appreciated Head of bed elevation Aspiration precautions Continue antibiotics Incentive spirometry Accu-Cheks Protonix BID Monitor hemoglobin Monitor platelets d/t thrombocytopenia Wound care Family updated at bedside. CT head - positive CVA - plan for higher level of care. Brain MRI showed e/o multiple strokes Labs and imaging reviewed. Rest of plan as noted below. Plan: Supplemental oxygen Titrate to keep O2 sats above 92%. Pressors as necessary for hemodynamic support Titrate to keep mean arterial pressure greater than 65 mmHg. Echocardiogram reviewed, notable for EF 50% Cardiology recs appreciated. Continue antibiotics Incentive spirometry Accu-Cheks, ISS PRN. Monitor renal function. Monitor electrolytes. Supplement as necessary. Monitor ins and outs. Pond for strict ins and outs Plan for HLOC due to CVA. DVT prophylaxis. Prognosis: Poor given patient's multiple co-morbidities. Condition: Critical Rest of plan per hospitalist and other consultants. A total of 35 minutes of critical care time was spent reviewing the patient record, examining the patient, making a diagnostic and therapeutic plan, discussing this plan with the medical personnel, following up on diagnostic studies and following the patient for clinical stability excluding any and all procedures. At least 50% of this time was spent in direct, [id number] contact. Thank you, Dr. Smith, for allowing me to participate in this patient's care. Further recommendations will depend on the patient's clinical course. Please do not hesitate to contact me if you have any questions or concerns. This medical document was created using an electronic medical record system with [employer]ation system. Although these documentations are being carefully reviewed, there may still be some phonetic and typographical changes. The errors are purely typographical, due to imperfection on the software program, and do not reflect any compromise in the patient's medical care. Dietary Evaluation Review Comments: 1) Ergocalciferol 50,000IU weekly 2) Jose L 1 pk daily, MVI w/ mineral 1 tab, Vit C 500mg BID, Zinc sulfate 220mg daily x 10 days 3) Advance to [id number] + renal special 80gm protein diet 4) Continue current plan of care Expected Outcomes/Goals: Advance diet to meet at least 75% estimated needs FU 2-3 days Plan discussed with: Patient, Other (VIJAY Latif) CC Plasma Assessment Blood Product Administration S: 11:05 JERAMY CAMARA MD Dec 15, 2024 19:47
[2024-12-16] VITALS (97 sets, daily range): BP systolic 77–139; BP diastolic 44–78; PULSE 66–100; RESP 11–23; TEMP 98.1–100.9; O2SAT 90–100
[2024-12-16 00:08] LABS: Coccidioides CF Antibody <1:2 (<1:2)
[2024-12-16 10:06] LABS: Aspergillus flavus Negative (Neg:<1:1); Aspergillus fumigatus Negative (Neg:<1:1); Aspergillus niger Negative (Neg:<1:1); Blastomyces Antibody DID Negative (Neg:<1:1)
--- NOTE | 2024-12-16 12:32 | DVHPN2 ---
Assessment/Plan Assessment/Plan Progress note Mr. Vu is a 59-year-old male with a past medical history of coronary artery disease status post CABG in October 2024, ischemic stroke oct 2024, status post bed bound and chronic indwelling Jones, hypertension, and hyperlipidemia. He was brought to the ER by the family with a chief complaint of heavy breathing, fever, chills, and anuria for the past 3 days. Per the daughter at bedside, the patient had never followed up with urology or cardiology after he was discharged from this facility on 11/07/24. He usually makes 1600 cc of urine a day. Per daughter, patient has a wound in his back and is also draining a white pus-like substance. Patient also reported dysuria and abdominal discomfort. He also reports heavy breathing and mild nonproductive cough. On arrival, patient was febrile at 101.2F, tachycardic, blood pressure 144/77, and requiring 4 L oxygen supplementation. White cell count was 3.6, hemoglobin 8.8, and hematocrit 23. Patient had hyperkalemia, potassium was 6 which downtrended to 5.4. Creatinine was 2.9 and BUN 77. Patient's Jones catheter was removed in ED after being in place for more than a month, the patient does not urinate on his own, bladder scan showed empty bladder, nephrology was consulted. Chest x-ray shows bibasilar consolidation. The patient has mildly elevated transaminases. Cardiology consulted given CT findings of substernal soft tissue density: new echo ordered, azithromycin was added to cover atypicals and hyperkalemia protocol was done, patient is having febrile neutropenia, CT scan of abdomen showed right groin lymphadenopathy, lymphadenopathy biopsy was done. 1 RBC was transfused per cardiology. 12/06/24 at 5:30 pm, patient had an episode of AMS, weakness, and hypotension, increased left leg weakness and left facial droop. CT scan negative for stroke or hemorrhage, patient was placed on Levophed and weaned off at 8 pm, fluids IV 100 cc during the night, today x-ray showed mild congestion. IV fluids reduced to 60cc and furosemide IV was started. New MRI showed multiple small strokes in different places; probably cardiembolic etiology. Neurology Dr. Cabral, stated no need for CTA or thrombectomy, also transfer to [facility] was planned but according to the center he had his CABG, patient can be managed in [facility]. Also, nephrology consulted. EMILY was ordered and will be done today. Worsening renal function; nephrology will discuss possible hemodialysis with the patient and his family. EMILY negative, neupogen started, patient had fever last night, new pancultures, renal function is trending high, dialysis catheter placed on the left, new K normal on place, possible HD. ID was consulted, vancomycin was changed for daptomycin, further studies were ordered to study possible source of infection, WBC is trending high, last fever 12/10 4pm, HD was done but patient needed levophed 2mcg, bilirubin is trending high, EPO was started by Nephro. lymph node biopsy: Hodgkin lymphoma, diagnosis disccused with family, patient still having fevers and diarrhea, necrotic ulcer assessed by dr Jacinto no need of intervention. seen by me today during rounds, on and off levo. PICC line. quantiferon neg physical exam alert oriented x3 clear breath sounds JVD clavicles s1 s2 rrr no murmur abdomen soft nontender trace LE edema R IJ permacath labs ekg imaging reviewed assessment and plan Problem List/Assessment/Plan Hematology #Hodgkin Lymphoma #Pancitopenia #Febrile neutropenia #Retroperitoneal lymphadenopathy #Normochromic and normocytic Anemia multifactorial: rule out neoplasm, CKD Lymph node biopsy done: Hodgkin Lymphoma Bone marrow biopsy pending Check hepatitis panel NOLBERTO double-stranded DNA CMV Christine-Deshpande virus, protein electrophoresis: Igg for CMV and EBV positive 2RBC given FOB negative 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 Neupogen 6 days today: wbc stable Dr Pastor stated that the patient will need chemotherapy when he is stable as outpatient Neurology #Acute metabolic/hypoxic encephalopathy due to stroke and sepsis #Possible acute cardioembolic stroke: corpus callosum, bilateral frontal and right parietal #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 There is no evidence of acute hemorrhage. There is no mass effect. There are additional scattered punctate foci of restricted diffusion in the bilateral frontal and right parietal lobe deep white matter which may represent tiny foci of acute to subacute infarcts. Bran MRI oct 2024: There prominent diffusion restriction also seen within the genu and anterior body of the corpus callosum. There is an apparent punctate additional focus of diffusion restriction in the medulla Neurology on board Aspirin continue Continue atorvastatin 40 mg EMILY normal Carotid duplex: No hemodynamically significant stenosis within the carotid arteries Pregabalin trial per neuro Need of PT Cardiology #Severe coronary artery disease status post triple-vessel CABG #Substernal soft tissue density likely secondary to recent CABG #Possible acute on Chronic HFpEF, NYHA class III Cardiology signed off 12/05/24 ECHO: Left atrial enlargement with dilation of the sinuses of Valsalva. Mild RV enlargement. Moderate aortic sclerosis with diminished excursion of the leaflets and calcification of what appears to be the right and non coronary cusps. Left ventricular function appears preserved. EF of about 50% with normal RV function. The tricuspid is normal. Doppler reveals some mild to moderate TR. No pericardial effusion masses or vegetations. 12/04/24: Substernal soft tissue density and stranding without a large fluid collection. Fat stranding is nonspecific and should be correlated with timing of surgery. Alternatively this could reflect an infectious or inflammatory etiology. Small bilateral pleural effusions and passive atelectasis. Cardiomegaly. Aspirin continue Continue atorvastatin 40 mg Hold on other GDMT: GOPAL and shock HD Levophed needed during dialysis Albumin IV Midodrine increase Pulmonology #Septic shock due to possible pneumonia #Acute respiratory failure #PNA gram+/gram- #Small bilateral pleural effusions #Passive atelectasis #Mixed base disorder: respiratory alkalosis and metabolic acidosis Marketing Communications Assistant and critical care on board Meropenem + Micafungin MRSA nares negative O2 2LT GI #Transaminitis secondary to chronic liver disease #Gallbladder polyps #Hyperbilirubinemia #Questionable typhlitis #Diarrhea in immunocompromised patoent Coarsened liver echotexture suggestive of chronic liver disease. Trace ascites. Partially visualized trace right pleural effusion. 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 #Possible septic emboli? #sacral wound #Rule out opportunistic infections #Possible tiflitis EMILY neg Daptomycin + Meropenem + Micafungin Patient had a sacral wound, cultures ordered: prelim yeast and gram + Multiple studies ordered to rule out opportunistic infection on severe immuno compromised patient Last fever 12/11 Dr Jacinto assessed the wound: no need for surgery for now Endocrinology #Hypoglycemia #Prediabetes Diabetic diet Stop insulin critical care tanmay spent 50 minutes Plan discussed with: Patient Date of Service: Dec 16, 2024 Billing Provider: RADHA ROWLEY MD Common Visit Codes: 86621-[id number] CARE 30-74 MIN RADHA ROWLEY MD Dec 16, 2024 12:32
[2024-12-16 13:27] LABS: INR 1.44 (0.9-1.15); Partial Thromboplastin Time 50.2 SEC (24.5-34.5); Prothrombin Time 14.7 sec (9.3-11.8)
[2024-12-16] MEDS: LIDOCAINE 1% (LOCAL ANESTH.) PF 5ml SDV ID ONE (14:55)
--- NOTE | 2024-12-16 15:57 | DVHPN2 ---
Progress Note Date Seen: Dec 16, 2024 Has the PT tested + for MRSA If YES, has PT been informed?: No Medical Necessity Reason Pt with a Central, PICC or Fol: Yes The following are medically ne: Pond Catheter Reason for pond catheter: Bladder Retention/Obstruc, Strict I&O Subjective Patient reports: No new complaints Review of Systems: Deferred Objective vital signs Vital Sign Date Time Temp Pulse Resp B/P (MAP) Pulse Ox O2 Delivery O2 Flow Rate FiO2 12/16/24 14:45 91 13 103/60 (74) 99 12/16/24 14:00 Nasal Cannula* 2 28 12/16/24 12:00 98.9 98.9 Total Intake and Output 12/15/24 12/15/24 12/16/24 15:00 23:00 07:00 Intake Total 133.750 ml 565.000 ml 175.625 ml Output Total 10 ml 10 ml Balance 133.750 ml 555.000 ml 165.625 ml medications Current Medications Medications Dose Ordered Sig/Shavon Route Start Time Stop Time Status Last Admin Dose Admin Acetaminophen 650 mg Q6HP PRN PO 12/04/24 03:30 12/16/24 00:57 650 MG Ondansetron HCl 4 mg Q4HP PRN IV 12/04/24 03:30 Diagnostic Test (Pha) 1 strip ACHS 12/04/24 07:00 12/16/24 11:59 1 STRIP Pantoprazole Sodium 40 mg BID IV 12/04/24 06:45 12/16/24 15:34 40 MG Calcium Acetate 1,334 mg TIDWMEALS PO 12/08/24 12:00 12/16/24 12:11 1,334 MG Tbo-Filgrastim 300 mcg DAILY SC 12/08/24 12:30 12/16/24 09:42 300 MCG Albumin Human 100 ml @ 100 mls/hr BETTYE IV 12/09/24 10:30 12/09/24 12:11 100 MLS/HR Micafungin Sodium 100 mg/Sodium Chloride 100 ml @ 100 mls/hr DAILY IV 12/10/24 10:00 12/16/24 15:34 100 MLS/HR Gabapentin 200 mg HS PO 12/10/24 22:00 12/15/24 21:31 200 MG Nystatin 5 ml QID MT 12/10/24 16:00 12/16/24 12:11 5 ML Daptomycin 0 ml @ 0 mls/hr PER PHARMACY IV 12/10/24 20:30 Daptomycin 500 mg/ Sodium Chloride 50 ml @ 100 mls/hr Q48H IV 12/11/24 15:00 12/15/24 16:01 100 MLS/HR Multivit/Ca Carb/ B Cmplx/FA/Prenat 1 tab DAILY PO 12/12/24 10:00 12/16/24 09:37 1 TAB Enteral Nutritional Formula 27.5 gm DAILY PO 12/12/24 10:00 12/14/24 09:26 27.5 GM Ergocalciferol 50,000 unit Q7D PO 12/12/24 08:45 12/12/24 09:38 50,000 UNIT Enteral Nutritional Formula 240 ml BIDWM PO 12/13/24 08:00 12/16/24 08:00 240 ML Cefepime HCl 50 ml @ 12.5 mls/hr DAILY@2200 IV 12/14/24 22:00 12/15/24 21:31 12.5 MLS/HR Norepinephrine Bitartrate 250 ml @ 1.875 mls/ hr Q24H IV 12/14/24 05:15 12/16/24 05:01 1.875 MLS/HR Midodrine 15 mg TID@0600,1200,1800 PO 12/15/24 12:00 12/16/24 12:10 15 MG Sodium Chloride 10 ml QSHIFT@10,22 IV 12/16/24 22:00 laboratory and microbiology Laboratory Tests 12/14/24 06:36 Test 12/14/24 06:36 Range/Units Serum Glucose 133 H 74-106 mg/dL Microbiology Date/Time Source Procedure Growth Status 12/12/24 13:20 Stool Stool Culture - Final Complete 12/12/24 13:20 Stool Shiga Toxin I & II - Final Complete 12/11/24 15:31 Sputum Gram Stain - Final Complete 12/11/24 15:31 Sputum Respiratory Culture - Final Complete 12/10/24 10:17 Sacrum Gram Stain - Final Complete 12/10/24 10:17 Wound Culture - Final Enterococcus faecalis Presumptive Halima albicans Complete 12/10/24 10:17 Voided Urine Urine Culture - Final Complete 12/08/24 14:39 Blood Blood Culture - Final NO GROWTH AFTER 5 DAYS OF INCUBATION. Complete Problem List/Assessment/Plan Problem List/Assessment/Plan Acute kidney injury due to ATN 2/2 sepsis +urinary obstruction now needing HD subacute Gopal patient noted to have severe GOPAL post CABG 10/2024 Chronic kidney disease stage IIIB 09/2024 GFR 44 pancytopenia s/p BM biopsy 12/10/24 anemia status post PRBC Sepsis secondary to urinary tract infection Chronic urinary retention Pond catheter was removed by ER on this admission -> replaced Hyperkalemia Chronic CVA w/ residual left sided weakness Acute TIA (12/05/24) due to hypotension Hodgkin's lymphoma --GOPAL hemodynamic requiring HD , first treatment 12/08 recs next HD tuesday s/p BM biopsy pending results and Lymph node biopsy showing Hodgkin's lymphoma s/p tunneled catheter for dialysis,remove [place] Vortal for chair time with [facility] dialysis on levophed Plan discussed with: Spouse My Orders My Orders Orders - SHARON HUERTA MD Procedure Category Date Status Time * Picc Line Consult CONS 12/16/24 Transmitted 11:43 Us Guided Vascular US 12/16/24 Taken Access 15:31 Change Dressing Prn DUGLAS 12/16/24 In Process 15:31 Sodium Chloride Lock PHA 12/16/24 In Process (Saline Lock Ns) 22:00 Do Not Use Picc For DUGLAS 12/16/24 In Process Blood Cult 15:31 May Draw Blood From DUGLAS 12/16/24 In Process Picc 15:31 Ok To Use Picc DUGLAS 12/16/24 In Process 15:31 Change Picc Dressing DUGLAS 12/16/24 In Process Q7 Days 15:31 Dietary Evaluation Review Comments: 1) Ergocalciferol 50,000IU weekly 2) Jose L 1 pk daily, MVI w/ mineral 1 tab, Vit C 500mg BID, Zinc sulfate 220mg daily x 10 days 3) Advance to [id number] + renal special 80gm protein diet 4) Continue current plan of care Expected Outcomes/Goals: Advance diet to meet at least 75% estimated needs FU 2-3 days CC Plasma Assessment Blood Product Administration S: 11:05 SHARON HUERTA MD Dec 16, 2024 15:57
--- NOTE | 2024-12-16 19:33 | DVHPN2 ---
Progress Note - Dictate Date Seen: Dec 16, 2024 Has the PT tested + for MRSA If YES, has PT been informed?: No Medical Necessity Reason Pt with a Central, PICC or Fol: Yes The following are medically ne: Pond Catheter Reason for pond catheter: Bladder Retention/Obstruc, Strict I&O Subjective Patient seen and examined at bedside. Remains on supplemental oxygen Overnight events reviewed. vital signs Vital Sign Date Time Temp Pulse Resp B/P (MAP) Pulse Ox O2 Delivery O2 Flow Rate FiO2 12/16/24 19:00 89 13 105/66 (79) 98 12/16/24 18:00 Nasal Cannula* 2 28 12/16/24 16:00 98.7 98.7 Total Intake and Output 12/15/24 12/15/24 12/16/24 15:00 23:00 07:00 Intake Total 133.750 ml 565.000 ml 175.625 ml Output Total 10 ml 10 ml Balance 133.750 ml 555.000 ml 165.625 ml medications Current Medications Medications Dose Ordered Sig/Shavon Route Start Time Stop Time Status Last Admin Dose Admin Acetaminophen 650 mg Q6HP PRN PO 12/04/24 03:30 12/16/24 00:57 650 MG Ondansetron HCl 4 mg Q4HP PRN IV 12/04/24 03:30 Diagnostic Test (Pha) 1 strip ACHS 12/04/24 07:00 12/16/24 17:00 1 STRIP Pantoprazole Sodium 40 mg BID IV 12/04/24 06:45 12/16/24 15:34 40 MG Calcium Acetate 1,334 mg TIDWMEALS PO 12/08/24 12:00 12/16/24 12:11 1,334 MG Tbo-Filgrastim 300 mcg DAILY SC 12/08/24 12:30 12/16/24 09:42 300 MCG Albumin Human 100 ml @ 100 mls/hr BETTYE IV 12/09/24 10:30 12/09/24 12:11 100 MLS/HR Micafungin Sodium 100 mg/Sodium Chloride 100 ml @ 100 mls/hr DAILY IV 12/10/24 10:00 12/16/24 15:34 100 MLS/HR Gabapentin 200 mg HS PO 12/10/24 22:00 12/15/24 21:31 200 MG Nystatin 5 ml QID MT 12/10/24 16:00 4/6/25 12:11 5 ML Daptomycin 0 ml @ 0 mls/hr PER PHARMACY IV 12/10/24 20:30 Daptomycin 500 mg/ Sodium Chloride 50 ml @ 100 mls/hr Q48H IV 12/11/24 15:00 12/15/24 16:01 100 MLS/HR Multivit/Ca Carb/ B Cmplx/FA/Prenat 1 tab DAILY PO 12/12/24 10:00 12/16/24 09:37 1 TAB Enteral Nutritional Formula 27.5 gm DAILY PO 12/12/24 10:00 12/14/24 09:26 27.5 GM Ergocalciferol 50,000 unit Q7D PO 12/12/24 08:45 12/12/24 09:38 50,000 UNIT Enteral Nutritional Formula 240 ml BIDWM PO 12/13/24 08:00 12/16/24 08:00 240 ML Cefepime HCl 50 ml @ 12.5 mls/hr DAILY@2200 IV 12/14/24 22:00 12/15/24 21:31 12.5 MLS/HR Norepinephrine Bitartrate 250 ml @ 1.875 mls/ hr Q24H IV 12/14/24 05:15 12/16/24 05:01 1.875 MLS/HR Midodrine 15 mg TID@0600,1200,1800 PO 12/15/24 12:00 12/16/24 17:36 15 MG Sodium Chloride 10 ml QSHIFT@10,22 IV 12/16/24 22:00 objective Gen.: Patient lying in bed in no apparent distress. On supplemental oxygen. Head: Normocephalic, atraumatic. Eyes: EOMI/PERRLA. Ears: Normal hearing. Normal anatomy. Neck/trachea: Trachea midline, supple. Nose: Normal external anatomy. Mouth: Moist mucous membranes. Chest: Decreased air entry bilaterally. No wheezing or rhonchi. Cardiovascular: Positive S1, positive S2. Regular rate and rhythm. Abdomen: Positive bowel sounds in all 4 quadrants. Soft, non-tender, non- distended. : Deferred. Rectal: Deferred. Skin: Warm, dry. Intact. Extremities: 2+ radial pulses bilaterally. No lower extremity edema. Neuro: Awake, alert, oriented x3. No gross motor or sensory deficits. Cranial nerves II through XII intact. Gait not assessed. laboratory and microbiology Laboratory Tests 12/14/24 06:36 Test 12/14/24 06:36 Range/Units Serum Glucose 133 H 74-106 mg/dL Assessment/Plan Impression: Acute hypoxic respiratory failure Dependence on supplemental oxygen Possible urinary tract infection CAD, s/p 3-vessel CABG. Septic shock Cerebrovascular accident Left pleural effusion Atelectasis Events: Remains on supplemental oxygen, 3 LPM NC Taper O2 as tolerated Patient is resting. No distress. Hemodialysis per Nephrology - HD tomorrow Hodgkin's lymphoma - awaiting bone marrow biopsy results. On pressors for hemodynamic support On Levophed at 2 mcg/min Titrate to keep mean arterial pressure greater than 65 mmHg. Levophed was off for a few hours, resumed due to low blood pressure Monitor blood pressure On midodrine Neutropenic precautions Leukopenia - on Filgrastim Monitor WBC Hemodialysis per Nephrology Requiring Levophed during dialysis Nephrology recommendations appreciated Head of bed elevation Aspiration precautions Continue antibiotics Continue antifungal Incentive spirometry Continue PT/OT Accu-Cheks Protonix BID Monitor hemoglobin Monitor platelets d/t thrombocytopenia Wound care CT head - positive CVA - plan for higher level of care. Brain MRI showed e/o multiple strokes Labs and imaging reviewed. Rest of plan as noted below. Plan: Supplemental oxygen Titrate to keep O2 sats above 92%. Pressors as necessary for hemodynamic support Titrate to keep mean arterial pressure greater than 65 mmHg. Echocardiogram reviewed, notable for EF 50% Cardiology recs appreciated. Continue antibiotics Continue antifungal Incentive spirometry Accu-Cheks, ISS PRN. Monitor renal function. Monitor electrolytes. Supplement as necessary. Monitor ins and outs. Pond for strict ins and outs Plan for HLOC due to CVA. DVT prophylaxis. Prognosis: Poor given patient's multiple co-morbidities. Condition: Critical Rest of plan per hospitalist and other consultants. A total of 35 minutes of critical care time was spent reviewing the patient record, examining the patient, making a diagnostic and therapeutic plan, discussing this plan with the medical personnel, following up on diagnostic studies and following the patient for clinical stability excluding any and all procedures. At least 50% of this time was spent in direct, [id number] contact. Thank you, Dr. Smith, for allowing me to participate in this patient's care. Further recommendations will depend on the patient's clinical course. Please do not hesitate to contact me if you have any questions or concerns. This medical document was created using an electronic medical record system with [employer] dictation system. Although these documentations are being carefully reviewed, there may still be some phonetic and typographical changes. The errors are purely typographical, due to imperfection on the software program, and do not reflect any compromise in the patient's medical care. Dietary Evaluation Review Comments: 1) Ergocalciferol 50,000IU weekly 2) Jose L 1 pk daily, MVI w/ mineral 1 tab, Vit C 500mg BID, Zinc sulfate 220mg daily x 10 days 3) Advance to [id number] + renal special 80gm protein diet 4) Continue current plan of care Expected Outcomes/Goals: Advance diet to meet at least 75% estimated needs FU 2-3 days Plan discussed with: Other (VIJAY Lowe) Critical Care Time(min): 35 CC Plasma Assessment Blood Product Administration S: 11:05 JERAMY CAMARA MD Dec 16, 2024 19:33
[2024-12-16] MEDS: SODIUM CHLOR 0.9% PF (SALINE LOCK) 10ML VIAL/SYR IV SCH (21:43)
[2024-12-17] VITALS (85 sets, daily range): BP systolic 79–137; BP diastolic 41–84; PULSE 73–139; RESP 12–24; TEMP 98.2–101.8; O2SAT 92–100
[2024-12-17 05:50] LABS: Eosinophils # (auto) 0 10 ^3/uL (0-0.8); Eosinophils % (auto) 0.1 % (0.0-7.0); Monocytes # (auto) 0.4 10 ^3/uL (0-1.3); Platelet Count (auto) 67 10^3/uL (140-450); White Blood Cell 16.3 10^3/uL (4.4-10.8)
[2024-12-17 05:53] LABS: Alanine Aminotransferase 30 U/L (7-40); Anion Gap 9 (5-15); BUN/Creatinine Ratio 15.5 (10.0-20.0); Carbon Dioxide 25 mmol/L (20-31); Magnesium 2.3 mg/dL (1.6-2.6); Phosphorus 3.8 mg/dL (2.4-5.1); Potassium 4.3 mmol/L (3.5-5.1)
[2024-12-17 06:06] LABS: Basophils # (auto) 0 10 ^3/uL (0-0.2); Basophils % (auto) 0.2 % (0.0-2.0); Hematocrit 24.6 % (41.0-53.0); Hemoglobin 8.4 g/dL (13.5-17.5); Lymphocytes # (auto) 0.4 10 ^3/uL (0.4-5.4); Lymphocytes % (auto) 2.7 % (10.0-50.0); Mean Corpuscular Hemoglobin 28.1 pg (28.0-32.0); Mean Corpuscular Hgb Conc. 34.2 g/dL (32.0-36.0); Mean Corpuscular Volume 82.3 fL (80.0-100.0); Monocytes % (auto) 2.6 % (0.0-12.0); Neutrophils # (auto) 15.4 10 ^3/uL (1.6-8.6); Neutrophils % (auto) 94.4 % (37.0-80.0); Nucleated Red Blood Cells % 0.1 %; Red Blood Cells 2.99 10^6/uL (4.5-5.90); Red Cell Distribution Width 17.8 % (11.8-14.3)
[2024-12-17 06:26] LABS: Alkaline Phosphatase 896 U/L (46-116); Aspartate Aminotransferase 70 U/L (13-40); Bilirubin, Total 9.8 mg/dL (0.2-1.0); Blood Urea Nitrogen 77 mg/dL (9-23); Calcium 8.1 mg/dL (8.7-10.4); Chloride 96 mmol/L (98-107); Glucose 143 mg/dL (74-106); Sodium 130 mmol/L (136-145); Total Protein 4.7 g/dL (5.7-8.2)
[2024-12-17] MEDS ORDERED: ACETAMINOPHEN 325 MG RECT SUPP PR PRN (06:45)
[2024-12-17 07:48] LABS: Tear Drop Cells FEW
[2024-12-17 07:49] LABS: Anisocytosis Slight; Ovalocytes FEW
[2024-12-17 07:50] LABS: Platelet Estimate Decreased
--- NOTE | 2024-12-17 10:03 | DVHPN2 ---
Progress Note - Dictate Date Seen: Dec 17, 2024 Has the PT tested + for MRSA If YES, has PT been informed?: No Medical Necessity Reason Pt with a Central, PICC or Fol: Yes The following are medically ne: Pond Catheter Reason for pond catheter: Bladder Retention/Obstruc, Strict I&O Subjective Mr. Narciso White is a 59 years old right-handed gentleman with a history of hypertension, diabetes, dyslipidemia, coronary artery disease, heart attack, recent CABG, he was taken to the [facility] on 12/03/2024 with a chief company of fever. But he was also developed acute stroke syndrome I have seen and examined the patient, discussed with his nurse, is in the room with him. He is awake, oriented to person only, his voice is weak, he does not move the extremities RN, who has had him since 12/16/2024 reported he was weak, difficulty swallowing on 12/16/2024 : The patient was has been the same all the time last week WBC is 16.3 today UDS, 12/04/2024: Negative Urinalysis, 12/04/2024: WBC: 1, urine leukocyte esterase: Negative WBC/HB/PLT/MCV, 12/06/2024: 0.6/7.8/147/84.5 12/07/2024: 0.8/8.2/141/84.2, 12/17/2024: 16.3/8.4/67/82.3 PTT/INR/PTT, 12/05/2024: 12.4/1.19/37.2 BUN/CR, 12/06/2024: 82/3.64, 12/12/2024: 48/3.67 HGB A1c, 12/04/2024: 5.9 TBI/AST/ALT/AP, 12/06/2024: 1.5/68/37/454, 12/10/2024: 3.5/88/36/616 12/12/2024: 5/76/29/825 TG/HDL/LDL/HDL, 12/06/2024: 138/79/20/11, 12/07/2024: 141/77/20/9 Vitamin B12, 11/2024: 1395 TSH, 11/2024: 0.7 SIFE, 12/06/2024: Iron/TIBC/Sat, 12/10/2024: 34/123/27.5 Ferritin, 12/10/2024: >3300 Bone marrow biopsy (12/11/24) Carotid Doppler, 12/07/2024: No hemodynamically significant stenosis within the carotid arteries Echocardiogram, 12/05/2024: Sinus rhythm. Left atrial enlargement with dilation of the sinuses of Valsalva. Mild RV enlargement. Moderate aortic sclerosis with diminished excursion of the leaflets and calcification of what appears to be the right and non coronary cusps. From the short axis view there does not appear to be limitation in motion. Normal pulmonic valve. Left ventricular function appears preserved. EF of about 50% with normal RV function. The tricuspid is normal. Doppler reveals some mild to moderate TR. No pericardial effusion masses or vegetations EMILY, 12/07/2024: Normal chamber dimensions. Valves appear to be structurally normal. Normal aortic mitral tricuspid and pulmonic valves Left ventricular function was preserved at 60% with normal RV function. Doppler reveals mild tricuspid insufficiency. Mild mitral insufficiency. No pericardial effusion masses or vegetations noted. The atrial appendage is normal. There are no thrombi present. Bubble study did not reveal crossover into the left side. Abnormal shunting otherwise present. MRI brain, 12/06/2024: 1. There is a small area of restricted diffusion involving the anterior body / genu of the corpus callosum consistent with an acute to subacute infarct. There is no evidence of acute hemorrhage. There is no mass effect. 2. There are additional scattered punctate foci of restricted diffusion in the bilateral frontal and right parietal lobe deep white matter which may represent tiny foci of acute to subacute infarcts Lymph node biopsy, 12/06/24: Hodgkin's lymphoma vital signs Vital Sign Date Time Temp Pulse Resp B/P (MAP) Pulse Ox O2 Delivery O2 Flow Rate FiO2 12/17/24 08:00 99.1 74 17 89/52 (64) 96 99.1 12/17/24 08:00 Nasal Cannula* 2 28 Total Intake and Output 12/16/24 12/16/24 12/17/24 15:00 23:00 07:00 Intake Total 15.000 ml 215.000 ml 53.750 ml Output Total 20 ml 15 ml Balance 15.000 ml 195.000 ml 38.750 ml medications Current Medications Medications Dose Ordered Sig/Shavon Route Start Time Stop Time Status Last Admin Dose Admin Acetaminophen 650 mg Q6HP PRN PO 12/04/24 03:30 12/16/24 00:57 650 MG Ondansetron HCl 4 mg Q4HP PRN IV 12/04/24 03:30 Diagnostic Test (Pha) 1 strip ACHS 12/04/24 07:00 12/17/24 06:37 1 STRIP Pantoprazole Sodium 40 mg BID IV 12/04/24 06:45 12/17/24 09:21 40 MG Calcium Acetate 1,334 mg TIDWMEALS PO 12/08/24 12:00 12/16/24 12:11 1,334 MG Albumin Human 100 ml @ 100 mls/hr BETTYE IV 12/09/24 10:30 12/09/24 12:11 100 MLS/HR Micafungin Sodium 100 mg/Sodium Chloride 100 ml @ 100 mls/hr DAILY IV 12/10/24 10:00 12/17/24 09:21 100 MLS/HR Gabapentin 200 mg HS PO 12/10/24 22:00 12/15/24 21:31 200 MG Nystatin 5 ml QID MT 12/10/24 16:00 12/16/24 12:11 5 ML Daptomycin 0 ml @ 0 mls/hr PER PHARMACY IV 12/10/24 20:30 Daptomycin 500 mg/ Sodium Chloride 50 ml @ 100 mls/hr Q48H IV 12/11/24 15:00 12/15/24 16:01 100 MLS/HR Multivit/Ca Carb/ B Cmplx/FA/Prenat 1 tab DAILY PO 12/12/24 10:00 12/16/24 09:37 1 TAB Enteral Nutritional Formula 27.5 gm DAILY PO 12/12/24 10:00 12/14/24 09:26 27.5 GM Ergocalciferol 50,000 unit Q7D PO 12/12/24 08:45 12/12/24 09:38 50,000 UNIT Enteral Nutritional Formula 240 ml BIDWM PO 12/13/24 08:00 12/17/24 08:21 240 ML Cefepime HCl 50 ml @ 12.5 mls/hr DAILY@2200 IV 12/14/24 22:00 12/16/24 21:43 12.5 MLS/HR Norepinephrine Bitartrate 250 ml @ 1.875 mls/ hr Q24H IV 12/14/24 05:15 12/16/24 05:01 1.875 MLS/HR Midodrine 15 mg TID@0600,1200,1800 PO 12/15/24 12:00 12/17/24 05:53 15 MG Sodium Chloride 10 ml QSHIFT@10,22 IV 12/16/24 22:00 12/17/24 09:21 10 ML Acetaminophen 325 mg Q6HP PRN VT 12/17/24 06:45 objective General: the patient is well developed and nourished. No acute distress. MENTAL STATUS: Subjective SPEECH, LANGUAGE, HIGHER CORTICAL FUNCTION: no aphasia or dysathria. CRANIAL NERVES: Pupils are equal, round and reactive. EOMs full and conjugate. No nystagmus. Facial sensation intact in all three divisions bilaterally. Mandibular strength intact. Facial muscles symmetrical and strength intact. SENSATION: Sensation to touch and pinprick is diminished distally in the lower extremities, but no [id number] differences MOTOR: Normal tone in the upper and lower extremity. Normal muscle bulk. No fasciculations. No abnormal movements or posturing. Subjective REFLEXES: Deep tendon reflexes are symmetrical. No pathological reflexes. CEREBELLAR/COORDINATION: No ataxia in the upper extremities GAIT/STATION: deferred. laboratory and microbiology Laboratory Tests 12/17/24 05:11 Test 12/17/24 05:11 Range/Units Serum Glucose 143 H 74-106 mg/dL Problem List Altered mental status, general weakness Metabolic encephalopathy ? New stroke Recent acute stroke with left-sided weakness Acute stroke syndrome MRI evident multiple acute strokes (11/08/2024) Pancytopenia/rule out malignancy Anemia Fever/sepsis Septic shock Coronary artery disease with recent CABG Diabetic polyneuropathy Restless leg syndrome Anemia Elevated liver function tests Hodgkin's lymphoma Assessment/Plan Monitoring Supportive treatment Follow-up MR brain ICU care IV antibiotics Aspirin 81 mg daily Lipitor 75 mg daily Gabapentin 200 mg in the evening Physical therapist GI prophylaxis Up to chair He is aware of neuropathy related foot care More recommendation per clinical course This medical document was created using an electronic medical record system with [employer] system. Although this document has been carefully reviewed, there may still be some phonetic and typographical errors. These areas are purely typographical due to imperfections of the software programs, and do not reflect any compromise in the patient's medical care. Prognosis poor Dietary Evaluation Review Comments: 1) Ergocalciferol 50,000IU weekly 2) Jos El 1 pk daily, MVI w/ mineral 1 tab, Vit C 500mg BID, Zinc sulfate 220mg daily x 10 days 3) Advance to [id number] + renal special 80gm protein diet 4) Continue current plan of care Expected Outcomes/Goals: Advance diet to meet at least 75% estimated needs FU 2-3 days Plan discussed with: Spouse, Other Critical Care Time(min): 35 CC Plasma Assessment Blood Product Administration S: 11:05 NIKOLAS PRATT MD Dec 17, 2024 10:03
--- NOTE | 2024-12-17 11:34 | DVHPN2 ---
Progress Note Date Seen: Dec 17, 2024 Has the PT tested + for MRSA If YES, has PT been informed?: No Medical Necessity Reason Pt with a Central, PICC or Fol: Yes The following are medically ne: Pond Catheter Reason for pond catheter: Bladder Retention/Obstruc, Strict I&O Subjective Review of Systems: NEURO:Abnormal Other Systems: Patient seen and examined by myself today in follow-up Patient examined hemodialysis, blood pressure stable Objective vital signs Vital Sign Date Time Temp Pulse Resp B/P (MAP) Pulse Ox O2 Delivery O2 Flow Rate FiO2 12/17/24 11:00 84 16 104/62 (76) 99 12/17/24 10:00 Nasal Cannula* 2 28 12/17/24 08:00 99.1 99.1 Total Intake and Output 12/16/24 12/16/24 12/17/24 15:00 23:00 07:00 Intake Total 15.000 ml 215.000 ml 53.750 ml Output Total 20 ml 15 ml Balance 15.000 ml 195.000 ml 38.750 ml medications Current Medications Medications Dose Ordered Sig/Shavon Route Start Time Stop Time Status Last Admin Dose Admin Acetaminophen 650 mg Q6HP PRN PO 12/04/24 03:30 12/16/24 00:57 650 MG Ondansetron HCl 4 mg Q4HP PRN IV 12/04/24 03:30 Diagnostic Test (Pha) 1 strip ACHS 12/04/24 07:00 12/17/24 06:37 1 STRIP Pantoprazole Sodium 40 mg BID IV 12/04/24 06:45 12/17/24 09:21 40 MG Calcium Acetate 1,334 mg TIDWMEALS PO 12/08/24 12:00 12/16/24 12:11 1,334 MG Albumin Human 100 ml @ 100 mls/hr BETTYE IV 12/09/24 10:30 12/09/24 12:11 100 MLS/HR Micafungin Sodium 100 mg/Sodium Chloride 100 ml @ 100 mls/hr DAILY IV 12/10/24 10:00 12/17/24 09:21 100 MLS/HR Gabapentin 200 mg HS PO 12/10/24 22:00 12/15/24 21:31 200 MG Nystatin 5 ml QID MT 12/10/24 16:00 12/16/24 12:11 5 ML Daptomycin 0 ml @ 0 mls/hr PER PHARMACY IV 12/10/24 20:30 Daptomycin 500 mg/ Sodium Chloride 50 ml @ 100 mls/hr Q48H IV 12/11/24 15:00 12/15/24 16:01 100 MLS/HR Multivit/Ca Carb/ B Cmplx/FA/Prenat 1 tab DAILY PO 12/12/24 10:00 12/16/24 09:37 1 TAB Enteral Nutritional Formula 27.5 gm DAILY PO 12/12/24 10:00 12/14/24 09:26 27.5 GM Ergocalciferol 50,000 unit Q7D PO 12/12/24 08:45 12/12/24 09:38 50,000 UNIT Enteral Nutritional Formula 240 ml BIDWM PO 12/13/24 08:00 12/17/24 08:21 240 ML Cefepime HCl 50 ml @ 12.5 mls/hr DAILY@2200 IV 12/14/24 22:00 12/16/24 21:43 12.5 MLS/HR Norepinephrine Bitartrate 250 ml @ 1.875 mls/ hr Q24H IV 12/14/24 05:15 12/16/24 05:01 1.875 MLS/HR Midodrine 15 mg TID@0600,1200,1800 PO 12/15/24 12:00 12/17/24 05:53 15 MG Sodium Chloride 10 ml QSHIFT@10,22 IV 12/16/24 22:00 12/17/24 09:21 10 ML Acetaminophen 325 mg Q6HP PRN DC 12/17/24 06:45 Examination: LUNGS:Normal, CVS:Normal, MSK:Normal laboratory and microbiology Laboratory Tests 12/17/24 05:11 Test 12/17/24 05:11 Range/Units Serum Glucose 143 H 74-106 mg/dL Microbiology Date/Time Source Procedure Growth Status 12/12/24 13:20 Stool Stool Culture - Final Complete 12/12/24 13:20 Stool Shiga Toxin I & II - Final Complete 12/11/24 15:31 Sputum Gram Stain - Final Complete 12/11/24 15:31 Sputum Respiratory Culture - Final Complete 12/10/24 10:17 Sacrum Gram Stain - Final Complete 12/10/24 10:17 Wound Culture - Final Enterococcus faecalis Presumptive Halima albicans Complete 12/10/24 10:17 Voided Urine Urine Culture - Final Complete 12/08/24 14:39 Blood Blood Culture - Final NO GROWTH AFTER 5 DAYS OF INCUBATION. 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 hemodialysis s/p BM biopsy pending results and Lymph node biopsy showing Hodgkin's lymphoma s/p tunneled catheter for dialysis services host for chair time with [facility] dialysis IV Levophed for blood pressure support We will continue to follow up Plan discussed with: Other (Nurse) My Orders My Orders Orders - RITA SANDS MD Procedure Category Date Status Time Urine Creatinine LAB 12/17/24 Logged 10:55 Urine Sodium LAB 12/17/24 Logged 10:55 Dietary Evaluation Review Comments: 1) Ergocalciferol 50,000IU weekly 2) Jose L 1 pk daily, MVI w/ mineral 1 tab, Vit C 500mg BID, Zinc sulfate 220mg daily x 10 days 3) Advance to [id number] + renal special 80gm protein diet 4) Continue current plan of care Expected Outcomes/Goals: Advance diet to meet at least 75% estimated needs FU 2-3 days CC Plasma Assessment Blood Product Administration S: 11:05 RITA SANDS MD Dec 17, 2024 11:34
[2024-12-17] MEDS ORDERED: ALBUMIN 25% 100 ML IV PRN (11:45)
[2024-12-17] MEDS: EPOETIN ALFA-EPBX 10,000 UNIT/1ML VIAL SC SCH (12:00)
--- NOTE | 2024-12-17 13:32 | DVHPNRES ---
Progress Note Date Seen: Dec 17, 2024 Resident Creating Document: KAMILLE VÁSQUEZ RESIDENT Has the PT tested + for MRSA If YES, has PT been informed?: No Medical Necessity Reason Pt with a Central, PICC or Fol: Yes The following are medically ne: Pond Catheter Reason for pond catheter: Bladder Retention/Obstruc, Strict I&O Subjective Review of Systems A 59-year-old male with a past medical history of coronary artery disease status post CABG in October 2024, ischemic stroke oct 2024, status post bed bound and chronic indwelling Pond, hypertension, and hyperlipidemia. He was brought to the ER by the family with a chief complaint of heavy breathing, fever, chills, and anuria for the past 3 days. Per the daughter at bedside, the patient had never followed up with urology or cardiology after he was discharged from this facility on 11/07/24. He usually makes 1600 cc of urine a day. Per daughter, patient has a wound in his back and is also draining a white pus-like substance. Patient also reported dysuria and abdominal discomfort. He also reports heavy breathing and mild nonproductive cough. On arrival, patient was febrile at 101.2F, tachycardic, blood pressure 144/77, and requiring 4 L oxygen supplementation. White cell count was 3.6, hemoglobin 8.8, and hematocrit 23. Patient had hyperkalemia, potassium was 6 which downtrended to 5.4. Creatinine was 2.9 and BUN 77. Patient's Pond catheter was removed in ED after being in place for more than a month, the patient does not urinate on his own, bladder scan showed empty bladder, nephrology was consulted. Chest x-ray shows bibasilar consolidation. The patient has mildly elevated transaminases. 12/05/[address] findings of substernal soft tissue density: new echo ordered, azithromycin was added to cover atypicals and hyperkalemia protocol was done, patient is having febrile neutropenia, CT scan of abdomen showed right groin lymphadenopathy, lymphadenopathy biopsy was done. 1 RBC was transfused per cardiology. 12/06/24 at 5:30 pm, patient had an episode of AMS, weakness, and hypotension, increased left leg weakness and left facial droop. CT scan negative for stroke or hemorrhage, patient was placed on Levophed and weaned off at 8 pm, fluids IV 100 cc during the night, today x-ray showed mild congestion. IV fluids reduced to 60cc and furosemide IV was started. New MRI showed multiple small strokes in different places; probably cardiembolic etiology. Neurology Dr. Cabral, stated no need for CTA or thrombectomy, also transfer to [facility] was planned but according to the center he had his CABG, [facility]. Also, nephrology consulted. 12/07/24: EMILY was ordered and will be done today. Worsening renal function; nephrology will discuss possible hemodialysis with the patient and his family. 12/08/24: EMILY negative, neupogen started, patient had fever last night, new pancultures, renal function is trending high, dialysis catheter placed on the left, new K normal on place, possible HD today. 12/10/24: Stop plavix, patient continues to have fevers, cultures prelim negative, pending bone marrow biopsy. 12/11/24: ID was consulted, vancomycin was changed for daptomycin, further studies were ordered to study possible source of infection, WBC is trending high, last fever 12/10 4pm, HD was done but patient needed levophed 2mcg, bilirubin is trending high, EPO was started by Nephro 12/12/24: lymph node biopsy: Hodgkin lymphoma, diagnosis disccused with family, patient still having fevers and diarrhea, necrotic ulcer assessed by dr Jacinto no need of intervention. 12/13/24: wbc is trending high, 6 episodes of diarrhea, today we are going to continue with metamucil and start midodrine, pending HD 12/17/24: WBC is trending high, DC filgastrim, patient still having fevers, less episodes of diarrhea, on and off levophed, after HD the idea is to DC levophed, keep MAP > 60 no 65 Objective vital signs Vital Sign Date Time Temp Pulse Resp B/P (MAP) Pulse Ox O2 Delivery O2 Flow Rate FiO2 12/17/24 12:30 84 15 113/62 (79) 97 12/17/24 12:00 99.0 99.0 12/17/24 10:00 Nasal Cannula* 2 28 Total Intake and Output 12/16/24 12/16/24 12/17/24 15:00 23:00 07:00 Intake Total 15.000 ml 215.000 ml 53.750 ml Output Total 20 ml 15 ml Balance 15.000 ml 195.000 ml 38.750 ml medications Current Medications Medications Dose Ordered Sig/Shavon Route Start Time Stop Time Status Last Admin Dose Admin Acetaminophen 650 mg Q6HP PRN PO 12/04/24 03:30 12/16/24 00:57 650 MG Ondansetron HCl 4 mg Q4HP PRN IV 12/04/24 03:30 Diagnostic Test (Pha) 1 strip ACHS 12/04/24 07:00 12/17/24 11:46 1 STRIP Pantoprazole Sodium 40 mg BID IV 12/04/24 06:45 12/17/24 09:21 40 MG Calcium Acetate 1,334 mg TIDWMEALS PO 12/08/24 12:00 12/16/24 12:11 1,334 MG Albumin Human 100 ml @ 100 mls/hr BETTYE IV 12/09/24 10:30 12/09/24 12:11 100 MLS/HR Micafungin Sodium 100 mg/Sodium Chloride 100 ml @ 100 mls/hr DAILY IV 12/10/24 10:00 12/17/24 09:21 100 MLS/HR Gabapentin 200 mg HS PO 12/10/24 22:00 12/15/24 21:31 200 MG Nystatin 5 ml QID MT 12/10/24 16:00 12/16/24 12:11 5 ML Daptomycin 0 ml @ 0 mls/hr PER PHARMACY IV 12/10/24 20:30 Daptomycin 500 mg/ Sodium Chloride 50 ml @ 100 mls/hr Q48H IV 12/11/24 15:00 12/15/24 16:01 100 MLS/HR Multivit/Ca Carb/ B Cmplx/FA/Prenat 1 tab DAILY PO 12/12/24 10:00 12/16/24 09:37 1 TAB Enteral Nutritional Formula 27.5 gm DAILY PO 12/12/24 10:00 12/14/24 09:26 27.5 GM Ergocalciferol 50,000 unit Q7D PO 12/12/24 08:45 12/12/24 09:38 50,000 UNIT Enteral Nutritional Formula 240 ml BIDWM PO 12/13/24 08:00 12/17/24 08:21 240 ML Cefepime HCl 50 ml @ 12.5 mls/hr DAILY@2200 IV 12/14/24 22:00 12/16/24 21:43 12.5 MLS/HR Norepinephrine Bitartrate 250 ml @ 1.875 mls/ hr Q24H IV 12/14/24 05:15 12/16/24 05:01 1.875 MLS/HR Midodrine 15 mg TID@0600,1200,1800 PO 12/15/24 12:00 12/17/24 05:53 15 MG Sodium Chloride 10 ml QSHIFT@10,22 IV 12/16/24 22:00 12/17/24 09:21 10 ML Acetaminophen 325 mg Q6HP PRN ND 12/17/24 06:45 Epoetin Tonio-epbx 10,000 unit 2XW SC 12/17/24 12:00 UNV Albumin Human 100 ml @ 100 mls/hr Q1HR PRN IV 12/17/24 11:45 12/17/24 13:59 UNV Examination General: Afebrile, icteric, mucosae are moist Cardiovascular: sternal wound clean, sternum stable, regular S1 and S2. No murmurs, gallops or rubs. No JVD elevation. No pedal edema. HD cath placed Respiratory: Normal B/L air entry on 2 L NC. Clear lung sounds on auscultation Abdomen: Soft, nontender, nondistended, normoactive bowel sounds, no rebound tenderness, no organomegaly, no masses. Neurological: Residual left lower extremity weakness.. Pupils are isocoric and reactive. Psych/Mental Status: A/Ox3 Patient has a stage II sacral decubitus ulcer, necrotic laboratory and microbiology Laboratory Tests 12/17/24 05:11 Test 12/17/24 05:11 Range/Units Serum Glucose 143 H 74-106 mg/dL Microbiology Date/Time Source Procedure Growth Status 12/12/24 13:20 Stool Stool Culture - Final Complete 12/12/24 13:20 Stool Shiga Toxin I & II - Final Complete 12/11/24 15:31 Sputum Gram Stain - Final Complete 12/11/24 15:31 Sputum Respiratory Culture - Final Complete 12/10/24 10:17 Sacrum Gram Stain - Final Complete 12/10/24 10:17 Wound Culture - Final Enterococcus faecalis Presumptive Halima albicans Complete 12/10/24 10:17 Voided Urine Urine Culture - Final Complete 12/08/24 14:39 Blood Blood Culture - Final NO GROWTH AFTER 5 DAYS OF INCUBATION. Complete Problem List/Assessment/Plan Problem List/Assessment/Plan Hematology #Hodgkin Lymphoma #Pancitopenia #neutropenia resolved #Retroperitoneal lymphadenopathy #Normochromic and normocytic Anemia multifactorial: rule out neoplasm, CKD Lymph node biopsy done: Hodgkin Lymphoma Bone marrow biopsy pending Check hepatitis panel NOLBERTO double-stranded DNA CMV Christine-Deshpande virus, protein electrophoresis: Igg for CMV and EBV positive 2RBC given FOB negative Construction Project Administrator on board MAURICE Pastor stated that the patient will need chemotherapy when he is stable as outpatient Patient still having fevers BM aspiration: myeloid dysmaturation without overt increase in blasts, monocytes 32% Neurology #Acute metabolic/hypoxic encephalopathy due to stroke and sepsis #Possible acute cardioembolic stroke: corpus callosum, bilateral frontal and right parietal #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 There is no evidence of acute hemorrhage. There is no mass effect. There are additional scattered punctate foci of restricted diffusion in the bilateral frontal and right parietal lobe deep white matter which may represent tiny foci of acute to subacute infarcts. Bran MRI oct 2024: There prominent diffusion restriction also seen within the genu and anterior body of the corpus callosum. There is an apparent punctate additional focus of diffusion restriction in the medulla Neurology on board Aspirin continue Continue atorvastatin 40 mg EMILY normal Carotid duplex: No hemodynamically significant stenosis within the carotid arteries Pregabalin trial per neuro Need of PT Cardiology #Severe coronary artery disease status post triple-vessel CABG #Substernal soft tissue density likely secondary to recent CABG #Possible acute on Chronic HFpEF, NYHA class III Cardiology signed off 12/05/24 ECHO: Left atrial enlargement with dilation of the sinuses of Valsalva. Mild RV enlargement. Moderate aortic sclerosis with diminished excursion of the leaflets and calcification of what appears to be the right and non coronary cusps. Left ventricular function appears preserved. EF of about 50% with normal RV function. The tricuspid is normal. Doppler reveals some mild to moderate TR. No pericardial effusion masses or vegetations. 12/04/24: Substernal soft tissue density and stranding without a large fluid collection. Fat stranding is nonspecific and should be correlated with timing of surgery. Alternatively this could reflect an infectious or inflammatory etiology. Small bilateral pleural effusions and passive atelectasis. Cardiomegaly. Aspirin continue Continue atorvastatin 40 mg Hold on other GDMT: GOPAL and shock HD Levophed needed during dialysis DC levophed MAP> 60 Albumin IV Midodrine Pulmonology #Septic shock due to possible pneumonia #Acute respiratory failure #PNA gram+/gram- #Small bilateral pleural effusions #Passive atelectasis #Mixed base disorder: respiratory alkalosis and metabolic acidosis Metallurgical Engineer and critical care on board Cefepime + Micafungin MRSA nares negative O2 2LT GI #Transaminitis secondary to chronic liver disease #Gallbladder polyps #Hyperbilirubinemia #Questionable typhlitis #Diarrhea in immunocompromised patoent Coarsened liver echotexture suggestive of chronic liver disease. Trace ascites. Partially visualized trace right pleural effusion. Gallbladder polyps measuring up to 0.4 cm FOB negative MRCP negative for acute pathology GGT high, AP high, bilirubins are trending high Metamucil Renal #GOPAL due to septic shock #ESRD #Dialysis urgency #Severe fluid overload #Hyperkalemia secondary to CKD #Hyperparathyroidism #Mixed base disorder: respiratory alkalosis and metabolic acidosis #Chronic indwelling Pond Urine culture came negative Cigarette Stamper on board HD today, after that please DC levophed EPO per nephro Infectious #Febrile neutropenia #Septic shock due to possible pneumonia? #Possible septic emboli? #sacral wound #Rule out opportunistic infections #Possible tiflitis EMILY neg Daptomycin + Cefepime + Micafungin Patient had a sacral wound, cultures ordered: prelim yeast and gram + Multiple studies ordered to rule out opportunistic infection on severe immunocompromised patient Last fever 12/11 Dr Jacinto assessed the wound: no need for surgery for now Endocrinology #Hypoglycemia #Prediabetes Diabetic diet Stop insulin Patient overall prognosis is poor, multiple comorbidities, still running fevers, the idea is to DC levophed, keep MAP> 60 after dialysis, prognosis was explained to the family Case discussed with Dr Salas Plan discussed with: Patient, Other (rn) Dietary Evaluation Review Comments: 1) Ergocalciferol 50,000IU weekly 2) Josel 1 pk daily, MVI w/ mineral 1 tab, Vit C 500mg BID, Zinc sulfate 220mg daily x 10 days 3) Advance to [id number] + renal special 80gm protein diet 4) Continue current plan of care Expected Outcomes/Goals: Advance diet to meet at least 75% estimated needs FU 2-3 days CC Plasma Assessment Blood Product Administration S: 11:05 Date of Service: Dec 17, 2024 Billing Provider: RADHA SALAS MD Common Visit Codes: 86810-[id number] CARE 30-74 MIN KAMILLE VÁSQUEZ RESIDENT Dec 17, 2024 13:32 RADHA SALAS MD Dec 25, 2024 21:04
[2024-12-17 13:59] LABS: Creatinine, Urine 38.35 mg/dL (30.0-125.0)
--- NOTE | 2024-12-17 23:25 | DVHPN2 ---
Progress Note - Dictate Date Seen: Dec 17, 2024 Has the PT tested + for MRSA If YES, has PT been informed?: No Medical Necessity Reason Pt with a Central, PICC or Fol: Yes The following are medically ne: Pond Catheter Reason for pond catheter: Bladder Retention/Obstruc, Strict I&O Subjective Patient seen and examined at bedside. Remains on supplemental oxygen Overnight events reviewed. vital signs Vital Sign Date Time Temp Pulse Resp B/P (MAP) Pulse Ox O2 Delivery O2 Flow Rate FiO2 12/17/24 22:30 83 21 94/48 (63) 96 12/17/24 22:00 Nasal Cannula* 2 28 12/17/24 20:00 98.9 98.9 Total Intake and Output 12/16/24 12/16/24 12/17/24 15:00 23:00 07:00 Intake Total 15.000 ml 215.000 ml 53.750 ml Output Total 20 ml 15 ml Balance 15.000 ml 195.000 ml 38.750 ml medications Current Medications Medications Dose Ordered Sig/Shavon Route Start Time Stop Time Status Last Admin Dose Admin Acetaminophen 650 mg Q6HP PRN PO 12/04/24 03:30 12/16/24 00:57 650 MG Ondansetron HCl 4 mg Q4HP PRN IV 12/04/24 03:30 Diagnostic Test (Pha) 1 strip ACHS 12/04/24 07:00 12/17/24 17:00 1 STRIP Pantoprazole Sodium 40 mg BID IV 12/04/24 06:45 12/17/24 21:41 40 MG Calcium Acetate 1,334 mg TIDWMEALS PO 12/08/24 12:00 12/16/24 12:11 1,334 MG Micafungin Sodium 100 mg/Sodium Chloride 100 ml @ 100 mls/hr DAILY IV 12/10/24 10:00 12/17/24 09:21 100 MLS/HR Gabapentin 200 mg HS PO 12/10/24 22:00 12/15/24 21:31 200 MG Nystatin 5 ml QID MT 12/10/24 16:00 12/16/24 12:11 5 ML Daptomycin 0 ml @ 0 mls/hr PER PHARMACY IV 12/10/24 20:30 Daptomycin 500 mg/ Sodium Chloride 50 ml @ 100 mls/hr Q48H IV 12/11/24 15:00 12/17/24 18:06 100 MLS/HR Multivit/Ca Carb/ B Cmplx/FA/Prenat 1 tab DAILY PO 12/12/24 10:00 12/16/24 09:37 1 TAB Enteral Nutritional Formula 27.5 gm DAILY PO 12/12/24 10:00 12/14/24 09:26 27.5 GM Ergocalciferol 50,000 unit Q7D PO 12/12/24 08:45 12/12/24 09:38 50,000 UNIT Enteral Nutritional Formula 240 ml BIDWM PO 12/13/24 08:00 12/17/24 08:21 240 ML Cefepime HCl 50 ml @ 12.5 mls/hr DAILY@2200 IV 12/14/24 22:00 12/17/24 21:41 12.5 MLS/HR Norepinephrine Bitartrate 250 ml @ 1.875 mls/ hr Q24H IV 12/14/24 05:15 12/16/24 05:01 1.875 MLS/HR Midodrine 15 mg TID@0600,1200,1800 PO 12/15/24 12:00 12/17/24 05:53 15 MG Sodium Chloride 10 ml QSHIFT@10,22 IV 12/16/24 22:00 12/17/24 21:41 10 ML Acetaminophen 325 mg Q6HP PRN AR 12/17/24 06:45 Epoetin Tonio-epbx 10,000 unit 2XW SC 12/17/24 12:00 objective Gen.: Patient lying in bed in no apparent distress. On supplemental oxygen. Head: Normocephalic, atraumatic. Eyes: EOMI/PERRLA. Ears: Normal hearing. Normal anatomy. Neck/trachea: Trachea midline, supple. Nose: Normal external anatomy. Mouth: Moist mucous membranes. Chest: Decreased air entry bilaterally. No wheezing or rhonchi. Cardiovascular: Positive S1, positive S2. Regular rate and rhythm. Abdomen: Positive bowel sounds in all 4 quadrants. Soft, non-tender, non- distended. : Deferred. Rectal: Deferred. Skin: Warm, dry. Intact. Extremities: 2+ radial pulses bilaterally. No lower extremity edema. Neuro: Awake, alert, oriented x3. No gross motor or sensory deficits. Cranial nerves II through XII intact. Gait not assessed. laboratory and microbiology Laboratory Tests 12/17/24 05:11 Test 12/17/24 05:11 Range/Units Serum Glucose 143 H 74-106 mg/dL Assessment/Plan Impression: Acute hypoxic respiratory failure Dependence on supplemental oxygen Possible urinary tract infection CAD, s/p 3-vessel CABG. Septic shock Cerebrovascular accident Left pleural effusion Atelectasis Events: Remains on supplemental oxygen, 2 LPM NC Taper O2 as tolerated No distress. Hemodialysis per Nephrology - HD today, removed 800 mL Hodgkin's lymphoma - awaiting bone marrow biopsy results. On pressors for hemodynamic support On Levophed at 1 mcg/min Titrate to keep mean arterial pressure greater than 65 mmHg. Monitor blood pressure Neutropenic precautions WBC currently elevated at 16.3 Hemodialysis per Nephrology Requiring Levophed during dialysis Nephrology recommendations appreciated Head of bed elevation Aspiration precautions Continue antibiotics Continue antifungal Incentive spirometry Continue PT/OT Accu-Cheks Protonix BID Monitor hemoglobin Monitor platelets d/t thrombocytopenia Wound care CT head - positive CVA - plan for higher level of care. Brain MRI showed e/o multiple strokes Labs and imaging reviewed. Rest of plan as noted below. Plan: Supplemental oxygen Titrate to keep O2 sats above 92%. Pressors as necessary for hemodynamic support Titrate to keep mean arterial pressure greater than 65 mmHg. Echocardiogram reviewed, notable for EF 50% Cardiology recs appreciated. Continue antibiotics Continue antifungal Incentive spirometry Accu-Cheks, ISS PRN. Monitor renal function. Monitor electrolytes. Supplement as necessary. Monitor ins and outs. Pond for strict ins and outs Plan for HLOC due to CVA. DVT prophylaxis. Prognosis: Poor given patient's multiple co-morbidities. Condition: Critical Rest of plan per hospitalist and other consultants. A total of 35 minutes of critical care time was spent reviewing the patient record, examining the patient, making a diagnostic and therapeutic plan, discussing this plan with the medical personnel, following up on diagnostic studies and following the patient for clinical stability excluding any and all procedures. At least 50% of this time was spent in direct, [id number] contact. Thank you, Dr. Smith, for allowing me to participate in this patient's care. Further recommendations will depend on the patient's clinical course. Please do not hesitate to contact me if you have any questions or concerns. This medical document was created using an electronic medical record system with Dragon computerized dictation system. Although these documentations are being carefully reviewed, there may still be some phonetic and typographical changes. The errors are purely typographical, due to imperfection on the software program, and do not reflect any compromise in the patient's medical care. Dietary Evaluation Review Comments: 1) Ergocalciferol 50,000IU weekly 2) Jose L 1 pk daily, MVI w/ mineral 1 tab, Vit C 500mg BID, Zinc sulfate 220mg daily x 10 days 3) Advance to [id number] + renal special 80gm protein diet 4) Continue current plan of care Expected Outcomes/Goals: Advance diet to meet at least 75% estimated needs FU 2-3 days Plan discussed with: Other (VIJAY Cruz) Critical Care Time(min): 35 CC Plasma Assessment Blood Product Administration S: 11:05 JERAMY CAMARA MD Dec 17, 2024 23:25
[2024-12-18] VITALS (76 sets, daily range): BP systolic 77–149; BP diastolic 41–77; PULSE 72–106; RESP 13–20; TEMP 98.2–99.5; O2SAT 92–100
[2024-12-18 06:07] LABS: Basophils # (auto) 0 10 ^3/uL (0-0.2); Basophils % (auto) 0.1 % (0.0-2.0); Eosinophils # (auto) 0 10 ^3/uL (0-0.8); Hemoglobin 8.4 g/dL (13.5-17.5); Lymphocytes # (auto) 0.4 10 ^3/uL (0.4-5.4); Lymphocytes % (auto) 2.6 % (10.0-50.0); Mean Corpuscular Hemoglobin 27.7 pg (28.0-32.0); Mean Corpuscular Hgb Conc. 33.8 g/dL (32.0-36.0); Mean Corpuscular Volume 81.9 fL (80.0-100.0); Monocytes # (auto) 0.7 10 ^3/uL (0-1.3); Monocytes % (auto) 4.5 % (0.0-12.0); Neutrophils # (auto) 14.8 10 ^3/uL (1.6-8.6); Neutrophils % (auto) 92.8 % (37.0-80.0); Platelet Count (auto) 72 10^3/uL (140-450); Red Blood Cells 3.05 10^6/uL (4.5-5.90); White Blood Cell 15.9 10^3/uL (4.4-10.8)
[2024-12-18] MEDS: NOREPINEPHRINE 8 MG/250ML KIT 250 ML IV SCH (06:30)
[2024-12-18 06:57] LABS: Alanine Aminotransferase 35 U/L (7-40); Albumin 2.1 g/dL (3.2-4.8); Alkaline Phosphatase 984 U/L (46-116); Anion Gap 9 (5-15); Aspartate Aminotransferase 82 U/L (13-40); Bilirubin, Total 11.1 mg/dL (0.2-1.0); Blood Urea Nitrogen 62 mg/dL (9-23); Calcium 7.9 mg/dL (8.7-10.4); Carbon Dioxide 26 mmol/L (20-31); Chloride 97 mmol/L (98-107); Glucose 109 mg/dL (74-106); Potassium 4.3 mmol/L (3.5-5.1); Sodium 132 mmol/L (136-145)
[2024-12-18 07:00] LABS: BUN/Creatinine Ratio 14.7 (10.0-20.0); Total Protein 4.8 g/dL (5.7-8.2)
--- NOTE | 2024-12-18 09:38 | DVHPN2 ---
Progress Note Date Seen: Dec 18, 2024 Has the PT tested + for MRSA If YES, has PT been informed?: No Medical Necessity Reason Pt with a Central, PICC or Fol: Yes The following are medically ne: Pond Catheter Reason for pond catheter: Bladder Retention/Obstruc, Strict I&O Subjective Patient reports: No new complaints Other Systems: Patient seen and examined by myself today in follow-up Objective vital signs Vital Sign Date Time Temp Pulse Resp B/P (MAP) Pulse Ox O2 Delivery O2 Flow Rate FiO2 12/18/24 09:15 84 18 99/59 (72) 97 12/18/24 08:00 Nasal Cannula* 2 28 12/18/24 08:00 99.5 99.5 Total Intake and Output 12/17/24 12/17/24 12/18/24 15:00 23:00 07:00 Intake Total 124.375 ml 109.375 ml 55.626 ml Output Total 10 ml 5 ml Balance 124.375 ml 99.375 ml 50.626 ml medications Current Medications Medications Dose Ordered Sig/Shavon Route Start Time Stop Time Status Last Admin Dose Admin Acetaminophen 650 mg Q6HP PRN PO 12/04/24 03:30 12/16/24 00:57 650 MG Ondansetron HCl 4 mg Q4HP PRN IV 12/04/24 03:30 Diagnostic Test (Pha) 1 strip ACHS 12/04/24 07:00 12/18/24 06:12 1 STRIP Pantoprazole Sodium 40 mg BID IV 12/04/24 06:45 12/17/24 21:41 40 MG Calcium Acetate 1,334 mg TIDWMEALS PO 12/08/24 12:00 12/16/24 12:11 1,334 MG Micafungin Sodium 100 mg/Sodium Chloride 100 ml @ 100 mls/hr DAILY IV 12/10/24 10:00 12/17/24 09:21 100 MLS/HR Gabapentin 200 mg HS PO 12/10/24 22:00 12/15/24 21:31 200 MG Nystatin 5 ml QID MT 12/10/24 16:00 12/16/24 12:11 5 ML Daptomycin 0 ml @ 0 mls/hr PER PHARMACY IV 12/10/24 20:30 Daptomycin 500 mg/ Sodium Chloride 50 ml @ 100 mls/hr Q48H IV 12/11/24 15:00 12/17/24 18:06 100 MLS/HR Multivit/Ca Carb/ B Cmplx/FA/Prenat 1 tab DAILY PO 12/12/24 10:00 12/16/24 09:37 1 TAB Enteral Nutritional Formula 27.5 gm DAILY PO 12/12/24 10:00 12/14/24 09:26 27.5 GM Ergocalciferol 50,000 unit Q7D PO 12/12/24 08:45 12/12/24 09:38 50,000 UNIT Enteral Nutritional Formula 240 ml BIDWM PO 12/13/24 08:00 12/17/24 08:21 240 ML Cefepime HCl 50 ml @ 12.5 mls/hr DAILY@2200 IV 12/14/24 22:00 12/17/24 21:41 12.5 MLS/HR Midodrine 15 mg TID@0600,1200,1800 PO 12/15/24 12:00 12/17/24 05:53 15 MG Sodium Chloride 10 ml QSHIFT@10,22 IV 12/16/24 22:00 12/17/24 21:41 10 ML Acetaminophen 325 mg Q6HP PRN NV 12/17/24 06:45 Epoetin Tonio-epbx 10,000 unit 2XW SC 12/17/24 12:00 Norepinephrine Bitartrate 250 ml @ 0.938 mls/ hr Q24H IV 12/18/24 06:30 Examination: LUNGS:Normal, CVS:Normal, MSK:Normal laboratory and microbiology Laboratory Tests 12/18/24 04:58 Test 12/18/24 04:58 Range/Units Serum Glucose 109 H 74-106 mg/dL Microbiology Date/Time Source Procedure Growth Status 12/12/24 13:20 Stool Stool Culture - Final Complete 12/12/24 13:20 Stool Shiga Toxin I & II - Final Complete 12/11/24 15:31 Sputum Gram Stain - Final Complete 12/11/24 15:31 Sputum Respiratory Culture - Final Complete 12/10/24 10:17 Sacrum Gram Stain - Final Complete 12/10/24 10:17 Wound Culture - Final Enterococcus faecalis Presumptive Halima albicans Complete 12/10/24 10:17 Voided Urine Urine Culture - Final Complete 12/08/24 14:39 Blood Blood Culture - Final NO GROWTH AFTER 5 DAYS OF INCUBATION. 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 with [facility] dialysis IV Levophed for blood pressure support We will continue to follow up Plan discussed with: Patient My Orders My Orders Orders - RITA SANDS MD Procedure Category Date Status Time Epoetin Tonio-Epbx PHA 12/17/24 In Process (Retacrit) 12:00 Octreotide Acetate PHA 12/18/24 Transmitted (Sandostatin) 14:00 Dopamine Drip PHA 12/18/24 Transmitted 09:45 Dietary Evaluation Review Comments: 1) Ergocalciferol 50,000IU weekly 2) Jose L 1 pk daily, MVI w/ mineral 1 tab, Vit C 500mg BID, Zinc sulfate 220mg daily x 10 days 3) Advance to [id number] + renal special 80gm protein diet 4) Continue current plan of care Expected Outcomes/Goals: Advance diet to meet at least 75% estimated needs FU 2-3 days CC Plasma Assessment Blood Product Administration S: 11:05 RITA SANDS MD Dec 18, 2024 09:38
[2024-12-18] MEDS: DOPamine 1600MCG/ML D5W 250 ML IV SCH (09:53)
--- NOTE | 2024-12-18 11:07 | DVHPN2 ---
Progress Note - Dictate Date Seen: Dec 18, 2024 Has the PT tested + for MRSA If YES, has PT been informed?: No Medical Necessity Reason Pt with a Central, PICC or Fol: Yes The following are medically ne: Pond Catheter Reason for pond catheter: Bladder Retention/Obstruc, Strict I&O Subjective Mr. Narciso White is a 59 years old right-handed gentleman with a history of hypertension, diabetes, dyslipidemia, coronary artery disease, heart attack, recent CABG, he was taken to the [facility] on 12/03/2024 with a chief company of fever. But he was also developed acute stroke syndrome I have seen and examined the patient, discussed with his nurse, is in the room with him. He is awake, oriented to person only, his voice is weak, he does not move the extremities He has jaundice UDS, 12/04/2024: Negative Urinalysis, 12/04/2024: WBC: 1, urine leukocyte esterase: Negative WBC/HB/PLT/MCV, 12/06/2024: 0.6/7.8/147/84.5 12/07/2024: 0.8/8.2/141/84.2, 12/17/2024: 16.3/8.4/67/82.3 PTT/INR/PTT, 12/05/2024: 12.4/1.19/37.2 BUN/CR, 12/06/2024: 82/3.64, 12/12/2024: 48/3.67, 12/18/2024: 62/4.21 HGB A1c, 12/04/2024: 5.9 TBI/AST/ALT/AP, 12/06/2024: 1.5/68/37/454, 12/10/2024: 3.5/88/36/616 12/12/2024: 5/76/29/825, both 05/06: 11.1/82/35/184 TG/HDL/LDL/HDL, 12/06/2024: 138/79/20/11, 12/07/2024: 141/77/20/9 Vitamin B12, 11/2024: 1395 TSH, 11/2024: 0.7 SIFE, 12/06/2024: Iron/TIBC/Sat, 12/10/2024: 34/123/27.5 Ferritin, 12/10/2024: >3300 Bone marrow biopsy (12/11/24) Carotid Doppler, 12/07/2024: No hemodynamically significant stenosis within the carotid arteries Echocardiogram, 12/05/2024: Sinus rhythm. Left atrial enlargement with dilation of the sinuses of Valsalva. Mild RV enlargement. Moderate aortic sclerosis with diminished excursion of the leaflets and calcification of what appears to be the right and non coronary cusps. From the short axis view there does not appear to be limitation in motion. Normal pulmonic valve. Left ventricular function appears preserved. EF of about 50% with normal RV function. The tricuspid is normal. Doppler reveals some mild to moderate TR. No pericardial effusion masses or vegetations EMILY, 12/07/2024: Normal chamber dimensions. Valves appear to be structurally normal. Normal aortic mitral tricuspid and pulmonic valves Left ventricular function was preserved at 60% with normal RV function. Doppler reveals mild tricuspid insufficiency. Mild mitral insufficiency. No pericardial effusion masses or vegetations noted. The atrial appendage is normal. There are no thrombi present. Bubble study did not reveal crossover into the left side. Abnormal shunting otherwise present. MRI brain, 12/06/2024: 1. There is a small area of restricted diffusion involving the anterior body / genu of the corpus callosum consistent with an acute to subacute infarct. There is no evidence of acute hemorrhage. There is no mass effect. 2. There are additional scattered punctate foci of restricted diffusion in the bilateral frontal and right parietal lobe deep white matter which may represent tiny foci of acute to subacute infarcts Lymph node biopsy, 12/06/24: Hodgkin's lymphoma Bone marrow aspiration: myeloid dysmaturation without overt increase in blasts, monocytes 32% vital signs Vital Sign Date Time Temp Pulse Resp B/P (MAP) Pulse Ox O2 Delivery O2 Flow Rate FiO2 12/18/24 10:30 95 15 113/63 (80) 97 12/18/24 10:00 Nasal Cannula* 2 28 12/18/24 08:00 99.5 99.5 Total Intake and Output 12/17/24 12/17/24 12/18/24 14:59 22:59 06:59 Intake Total 116.875 ml 118.750 ml 54.688 ml Output Total 10 ml 5 ml Balance 116.875 ml 108.750 ml 49.688 ml medications Current Medications Medications Dose Ordered Sig/Shavon Route Start Time Stop Time Status Last Admin Dose Admin Acetaminophen 650 mg Q6HP PRN PO 12/04/24 03:30 12/16/24 00:57 650 MG Ondansetron HCl 4 mg Q4HP PRN IV 12/04/24 03:30 Diagnostic Test (Pha) 1 strip ACHS 12/04/24 07:00 12/18/24 06:12 1 STRIP Pantoprazole Sodium 40 mg BID IV 12/04/24 06:45 12/18/24 09:52 40 MG Calcium Acetate 1,334 mg TIDWMEALS PO 12/08/24 12:00 12/16/24 12:11 1,334 MG Micafungin Sodium 100 mg/Sodium Chloride 100 ml @ 100 mls/hr DAILY IV 12/10/24 10:00 12/18/24 10:18 100 MLS/HR Gabapentin 200 mg HS PO 12/10/24 22:00 12/15/24 21:31 200 MG Nystatin 5 ml QID MT 12/10/24 16:00 12/16/24 12:11 5 ML Daptomycin 0 ml @ 0 mls/hr PER PHARMACY IV 12/10/24 20:30 Daptomycin 500 mg/ Sodium Chloride 50 ml @ 100 mls/hr Q48H IV 12/11/24 15:00 12/17/24 18:06 100 MLS/HR Multivit/Ca Carb/ B Cmplx/FA/Prenat 1 tab DAILY PO 12/12/24 10:00 12/16/24 09:37 1 TAB Enteral Nutritional Formula 27.5 gm DAILY PO 12/12/24 10:00 12/14/24 09:26 27.5 GM Ergocalciferol 50,000 unit Q7D PO 12/12/24 08:45 12/12/24 09:38 50,000 UNIT Enteral Nutritional Formula 240 ml BIDWM PO 12/13/24 08:00 12/17/24 08:21 240 ML Cefepime HCl 50 ml @ 12.5 mls/hr DAILY@2200 IV 12/14/24 22:00 12/18/24 09:54 12.5 MLS/HR Midodrine 15 mg TID@0600,1200,1800 PO 12/15/24 12:00 12/17/24 05:53 15 MG Sodium Chloride 10 ml QSHIFT@10,22 IV 12/16/24 22:00 12/18/24 10:18 10 ML Acetaminophen 325 mg Q6HP PRN MN 12/17/24 06:45 Epoetin Tonio-epbx 10,000 unit 2XW SC 12/17/24 12:00 Norepinephrine Bitartrate 250 ml @ 0.938 mls/ hr Q24H IV 12/18/24 06:30 Octreotide Acetate 100 mcg TID SUBCUT 12/18/24 14:00 Dopamine HCl/ Dextrose 250 ml @ 6.413 mls/ hr Q24H IV 12/18/24 09:45 12/18/24 09:53 6.413 MLS/HR objective General: the patient is well developed and nourished. No acute distress. MENTAL STATUS: Subjective SPEECH, LANGUAGE, HIGHER CORTICAL FUNCTION: no aphasia or dysathria. CRANIAL NERVES: Pupils are equal, round and reactive. EOMs full and conjugate. No nystagmus. Facial sensation intact in all three divisions bilaterally. Mandibular strength intact. Facial muscles symmetrical and strength intact. SENSATION: Sensation to touch and pinprick is diminished distally in the lower extremities, but no [id number] differences MOTOR: Normal tone in the upper and lower extremity. Normal muscle bulk. No fasciculations. No abnormal movements or posturing. Subjective REFLEXES: Deep tendon reflexes are symmetrical. No pathological reflexes. CEREBELLAR/COORDINATION: No ataxia in the upper extremities GAIT/STATION: deferred. laboratory and microbiology Laboratory Tests 12/18/24 04:58 Test 12/18/24 04:58 Range/Units Serum Glucose 109 H 74-106 mg/dL Problem List Altered mental status, general weakness Metabolic encephalopathy ? New stroke Recent acute stroke with left-sided weakness Acute stroke syndrome MRI evident multiple acute strokes (11/08/2024) Pancytopenia/rule out malignancy Anemia Fever/sepsis Septic shock Coronary artery disease with recent CABG Diabetic polyneuropathy Restless leg syndrome Anemia Elevated liver function tests Hodgkin's lymphoma Jaundice Assessment/Plan Monitoring Supportive treatment Follow-up MR brain ICU care IV antibiotics Aspirin 81 mg daily Lipitor 75 mg daily Gabapentin 200 mg in the evening Physical therapist GI prophylaxis Up to chair He is aware of neuropathy related foot care More recommendation per clinical course This medical document was created using an electronic medical record system with Dragon computerized dictation system. Although this document has been carefully reviewed, there may still be some phonetic and typographical errors. These areas are purely typographical due to imperfections of the software programs, and do not reflect any compromise in the patient's medical care. Prognosis poor Dietary Evaluation Review Comments: 1) Ergocalciferol 50,000IU weekly 2) Jose L 1 pk daily, MVI w/ mineral 1 tab, Vit C 500mg BID, Zinc sulfate 220mg daily x 10 days 3) Advance to [id number] + renal special 80gm protein diet 4) Continue current plan of care Expected Outcomes/Goals: Advance diet to meet at least 75% estimated needs FU 2-3 days Plan discussed with: Spouse, Other Critical Care Time(min): 30 CC Plasma Assessment Blood Product Administration S: 11:05 NIKOLAS PRATT MD Dec 18, 2024 11:07
[2024-12-18] MEDS: OCTREOTIDE ACETATE 100 MCG/ML VL SUBCUT SCH (14:02)
--- NOTE | 2024-12-18 14:20 | DVHPNRES ---
Progress Note Date Seen: Dec 18, 2024 Resident Creating Document: KAMILLE VÁSQUEZ RESIDENT Has the PT tested + for MRSA If YES, has PT been informed?: No Medical Necessity Reason Pt with a Central, PICC or Fol: Yes The following are medically ne: Pond Catheter Reason for pond catheter: Bladder Retention/Obstruc, Strict I&O Subjective Review of Systems A 59-year-old male with a past medical history of coronary artery disease status post CABG in October 2024, ischemic stroke oct 2024, status post bed bound and chronic indwelling Pond, hypertension, and hyperlipidemia. He was brought to the ER by the family with a chief complaint of heavy breathing, fever, chills, and anuria for the past 3 days. Per the daughter at bedside, the patient had never followed up with urology or cardiology after he was discharged from this facility on 11/07/24. He usually makes 1600 cc of urine a day. Per daughter, patient has a wound in his back and is also draining a white pus-like substance. Patient also reported dysuria and abdominal discomfort. He also reports heavy breathing and mild nonproductive cough. On arrival, patient was febrile at 101.2F, tachycardic, blood pressure 144/77, and requiring 4 L oxygen supplementation. White cell count was 3.6, hemoglobin 8.8, and hematocrit 23. Patient had hyperkalemia, potassium was 6 which downtrended to 5.4. Creatinine was 2.9 and BUN 77. Patient's Pond catheter was removed in ED after being in place for more than a month, the patient does not urinate on his own, bladder scan showed empty bladder, nephrology was consulted. Chest x-ray shows bibasilar consolidation. The patient has mildly elevated transaminases. 12/05/[address] findings of substernal soft tissue density: new echo ordered, azithromycin was added to cover atypicals and hyperkalemia protocol was done, patient is having febrile neutropenia, CT scan of abdomen showed right groin lymphadenopathy, lymphadenopathy biopsy was done. 1 RBC was transfused per cardiology. 12/06/24 at 5:30 pm, patient had an episode of AMS, weakness, and hypotension, increased left leg weakness and left facial droop. CT scan negative for stroke or hemorrhage, patient was placed on Levophed and weaned off at 8 pm, fluids IV 100 cc during the night, today x-ray showed mild congestion. IV fluids reduced to 60cc and furosemide IV was started. New MRI showed multiple small strokes in different places; probably cardiembolic etiology. Neurology Dr. Cabral, stated no need for CTA or thrombectomy, also transfer to [facility] was planned but according to the center he had his CABG, [facility] Also, nephrology consulted. 12/07/24: EMILY was ordered and will be done today. Worsening renal function; nephrology will discuss possible hemodialysis with the patient and his family. 12/08/24: EMILY negative, neupogen started, patient had fever last night, new pancultures, renal function is trending high, dialysis catheter placed on the left, new K normal on place, possible HD today. 12/10/24: Stop plavix, patient continues to have fevers, cultures prelim negative, pending bone marrow biopsy. 12/11/24: ID was consulted, vancomycin was changed for daptomycin, further studies were ordered to study possible source of infection, WBC is trending high, last fever 12/10 4pm, HD was done but patient needed levophed 2mcg, bilirubin is trending high, EPO was started by Nephro 12/12/24: lymph node biopsy: Hodgkin lymphoma, diagnosis disccused with family, patient still having fevers and diarrhea, necrotic ulcer assessed by dr Jacinto no need of intervention. 12/13/24: wbc is trending high, 6 episodes of diarrhea, today we are going to continue with metamucil and start midodrine, pending HD 12/17/24: WBC is trending high, DC filgastrim, patient still having fevers, less episodes of diarrhea, on and off levophed, after HD the idea is to DC levophed, keep MAP > 60 no 65 12/18/24: wbc is stable, patient still having fevers, levophed was up 1 mcg, MRI ordered by neurology didn't show acute changes, case extensively discussed with the , explaining her about the poor prognosis and the hospice option Objective vital signs Vital Sign Date Time Temp Pulse Resp B/P (MAP) Pulse Ox O2 Delivery O2 Flow Rate FiO2 12/18/24 14:00 94 12/18/24 14:00 19 98 Nasal Cannula* 2 28 12/18/24 13:30 86/47 (60) 12/18/24 08:00 99.5 99.5 Total Intake and Output 12/17/24 12/17/24 12/18/24 15:00 23:00 07:00 Intake Total 124.375 ml 109.375 ml 55.626 ml Output Total 10 ml 5 ml Balance 124.375 ml 99.375 ml 50.626 ml medications Current Medications Medications Dose Ordered Sig/Shavon Route Start Time Stop Time Status Last Admin Dose Admin Acetaminophen 650 mg Q6HP PRN PO 12/04/24 03:30 12/16/24 00:57 650 MG Ondansetron HCl 4 mg Q4HP PRN IV 12/04/24 03:30 Diagnostic Test (Pha) 1 strip ACHS 12/04/24 07:00 12/18/24 11:36 1 STRIP Pantoprazole Sodium 40 mg BID IV 12/04/24 06:45 12/18/24 09:52 40 MG Calcium Acetate 1,334 mg TIDWMEALS PO 12/08/24 12:00 12/16/24 12:11 1,334 MG Micafungin Sodium 100 mg/Sodium Chloride 100 ml @ 100 mls/hr DAILY IV 12/10/24 10:00 12/18/24 10:18 100 MLS/HR Gabapentin 200 mg HS PO 12/10/24 22:00 12/15/24 21:31 200 MG Nystatin 5 ml QID MT 12/10/24 16:00 12/16/24 12:11 5 ML Daptomycin 0 ml @ 0 mls/hr PER PHARMACY IV 12/10/24 20:30 Daptomycin 500 mg/ Sodium Chloride 50 ml @ 100 mls/hr Q48H IV 12/11/24 15:00 12/17/24 18:06 100 MLS/HR Multivit/Ca Carb/ B Cmplx/FA/Prenat 1 tab DAILY PO 12/12/24 10:00 12/16/24 09:37 1 TAB Enteral Nutritional Formula 27.5 gm DAILY PO 12/12/24 10:00 12/14/24 09:26 27.5 GM Ergocalciferol 50,000 unit Q7D PO 12/12/24 08:45 12/12/24 09:38 50,000 UNIT Enteral Nutritional Formula 240 ml BIDWM PO 12/13/24 08:00 12/17/24 08:21 240 ML Cefepime HCl 50 ml @ 12.5 mls/hr DAILY@2200 IV 12/14/24 22:00 12/17/24 21:41 12.5 MLS/HR Midodrine 15 mg TID@0600,1200,1800 PO 12/15/24 12:00 12/17/24 05:53 15 MG Sodium Chloride 10 ml QSHIFT@10,22 IV 12/16/24 22:00 12/18/24 10:18 10 ML Acetaminophen 325 mg Q6HP PRN [place] 12/17/24 06:45 Epoetin Tonio-epbx 10,000 unit 2XW SC 12/17/24 12:00 Norepinephrine Bitartrate 250 ml @ 0.938 mls/ hr Q24H IV 12/18/24 06:30 Octreotide Acetate 100 mcg TID SUBCUT 12/18/24 14:00 12/18/24 14:02 100 MCG Dopamine HCl/ Dextrose 250 ml @ 6.413 mls/ hr Q24H IV 12/18/24 09:45 12/18/24 09:53 6.413 MLS/HR Examination General: Afebrile, icteric, mucosae are moist Cardiovascular: sternal wound clean, sternum stable, regular S1 and S2. No murmurs, gallops or rubs. No JVD elevation. No pedal edema. HD cath placed Respiratory: Normal B/L air entry on 2 L NC. Clear lung sounds on auscultation Abdomen: Soft, nontender, nondistended, normoactive bowel sounds, no rebound tenderness, no organomegaly, no masses. Neurological: Residual left lower extremity weakness.. Pupils are isocoric and reactive. Psych/Mental Status: A/Ox3 Patient has a stage II sacral decubitus ulcer, necrotic laboratory and microbiology Laboratory Tests 12/18/24 04:58 Test 12/18/24 04:58 Range/Units Serum Glucose 109 H 74-106 mg/dL Microbiology Date/Time Source Procedure Growth Status 12/12/24 13:20 Stool Stool Culture - Final Complete 12/12/24 13:20 Stool Shiga Toxin I & II - Final Complete 12/11/24 15:31 Sputum Gram Stain - Final Complete 12/11/24 15:31 Sputum Respiratory Culture - Final Complete 12/10/24 10:17 Sacrum Gram Stain - Final Complete 12/10/24 10:17 Wound Culture - Final Enterococcus faecalis Presumptive Halima albicans Complete 12/10/24 10:17 Voided Urine Urine Culture - Final Complete 12/08/24 14:39 Blood Blood Culture - Final NO GROWTH AFTER 5 DAYS OF INCUBATION. 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 Pastor stated that the patient will need chemotherapy when he is stable as outpatient Patient still having fevers BM aspiration: myeloid dysmaturation without overt increase in blasts, monocytes 32% Neurology #Acute metabolic/hypoxic encephalopathy due to stroke and sepsis #Possible acute cardioembolic stroke: corpus callosum, bilateral frontal and right parietal #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 There is no evidence of acute hemorrhage. There is no mass effect. There are additional scattered punctate foci of restricted diffusion in the bilateral frontal and right parietal lobe deep white matter which may represent tiny foci of acute to subacute infarcts. Bran MRI oct 2024: There prominent diffusion restriction also seen within the genu and anterior body of the corpus callosum. There is an apparent punctate additional focus of diffusion restriction in the medulla Neurology on board Aspirin continue Continue atorvastatin 40 mg EMILY normal Carotid duplex: No hemodynamically significant stenosis within the carotid arteries Pregabalin trial per neuro Need of PT Cardiology #Severe coronary artery disease status post triple-vessel CABG #Substernal soft tissue density likely secondary to recent CABG #Possible acute on Chronic HFpEF, NYHA class III Cardiology signed off 12/05/24 ECHO: Left atrial enlargement with dilation of the sinuses of Valsalva. Mild RV enlargement. Moderate aortic sclerosis with diminished excursion of the leaflets and calcification of what appears to be the right and non coronary cusps. Left ventricular function appears preserved. EF of about 50% with normal RV function. The tricuspid is normal. Doppler reveals some mild to moderate TR. No pericardial effusion masses or vegetations. 12/04/24: Substernal soft tissue density and stranding without a large fluid collection. Fat stranding is nonspecific and should be correlated with timing of surgery. Alternatively this could reflect an infectious or inflammatory etiology. Small bilateral pleural effusions and passive atelectasis. Cardiomegaly. 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 Trace ascites. Partially visualized trace right pleural effusion. 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 #Possible septic emboli? #sacral wound #Rule out opportunistic infections #Possible tiflitis EMILY neg Daptomycin + Cefepime + Micafungin Patient had a sacral wound, cultures ordered: prelim yeast and gram + Multiple studies ordered to rule out opportunistic infection on severe immunocompromised patient Last fever 12/11 Dr Jacinto assessed the wound: no need for surgery for now Endocrinology #Hypoglycemia #Prediabetes Diabetic diet Stop insulin Cortisol AM 12/18/24: wbc is stable, patient still having fevers, levophed was up 1 mcg, MRI ordered by neurology didn't show acute changes, case extensively discussed with the , explaining her about the poor prognosis and the hospice option Case discussed with Dr Salas Plan discussed with: Patient My Orders My Orders Orders - KAMILLE VÁSQUEZ RESIDENT Procedure Category Date Status Time Pureed DIET 12/18/24 Transmitted Breakfast Cortisol Am LAB 12/18/24 Logged 11:30 Dietary Evaluation Review Comments: 1) Ergocalciferol 50,000IU weekly 2) Jose L 1 pk daily, MVI w/ mineral 1 tab, Vit C 500mg BID, Zinc sulfate 220mg daily x 10 days 3) Advance to [id number] + renal special 80gm protein diet 4) Continue current plan of care Expected Outcomes/Goals: Advance diet to meet at least 75% estimated needs FU 2-3 days CC Plasma Assessment Blood Product Administration S: 11:05 Date of Service: Dec 18, 2024 Billing Provider: RADHA SALAS MD Common Visit Codes: [id number] CARE 30-74 MIN KAMILLE VÁSQUEZ RESIDENT Dec 18, 2024 14:20 RADHA SALAS MD Dec 25, 2024 21:11
[2024-12-18] MEDS: SODIUM CHLORIDE 0.9% 500 ML IV ONE (15:45)
--- NOTE | 2024-12-18 18:42 | DVH ---
EXAM: MRI BRAIN HEAD WO CONTRAST CLINICAL HISTORY: NEURO CHANGE COMPARISON: MRI BRAIN HEAD WO CONTRAST on DOS: 11/03/24 TECHNIQUE: Multiplanar, multisequence magnetic resonance imaging of the brain was performed without intravenous contrast. FINDINGS: Limited views of the brain with only the diffusion weighted imaging, T2 and blood sensitive sequence obtained. Study is limited by motion artifact. There is interval decrease in the hyperintensity over the anterior body/ genu of the corpus callosum on the b 1000 with interval decrease in the hypointensity on the ADC . The additional scattered foci of diffusion restriction over the frontal and parietal lobes appear significantly less conspicuous on current study. Mild diffuse brain atrophy. Mild chronic small-vessel ischemic changes. No evidence of hydrocephalus. The basal cisterns are patent. The visualized vascular flow voids are maintained. No large intracran ial hemorrhage. The orbits and globes areunremarkable. Mild mucoperiosteal thickening of the ethmoid and maxillary si nuses. Mucous retention cyst within the left sphenoid sinus. Minimal mucoperiosteal thickening of t he frontal sinuses. IMPRESSION: Limited views of the brain are provided with limited evaluation of the provided views due to motion a rtifact. Subacute appearing infarct of the genu/anterior body of the corpus callosum. The additional scattered punctate foci of diffusion restriction within the bilateral frontal and elliot etal lobes noted on prior imaging appear significantly less conspicuous on current study. No new areas of diffusion restriction are noted within the limitations of motion artifact.
--- NOTE | 2024-12-18 20:54 | DVHPN2 ---
Progress Note - Dictate Date Seen: Dec 18, 2024 Has the PT tested + for MRSA If YES, has PT been informed?: No Medical Necessity Reason Pt with a Central, PICC or Fol: Yes The following are medically ne: Pond Catheter Reason for pond catheter: Bladder Retention/Obstruc, Strict I&O Subjective Patient seen and examined at bedside. Remains on supplemental oxygen Overnight events reviewed. vital signs Vital Sign Date Time Temp Pulse Resp B/P (MAP) Pulse Ox O2 Delivery O2 Flow Rate FiO2 12/18/24 20:00 98.4 84 16 102/58 (73) 99 98.4 12/18/24 18:00 Nasal Cannula* 2 28 Total Intake and Output 12/17/24 12/17/24 12/18/24 15:00 23:00 07:00 Intake Total 124.375 ml 109.375 ml 55.626 ml Output Total 10 ml 5 ml Balance 124.375 ml 99.375 ml 50.626 ml medications Current Medications Medications Dose Ordered Sig/Shavon Route Start Time Stop Time Status Last Admin Dose Admin Acetaminophen 650 mg Q6HP PRN PO 12/04/24 03:30 12/18/24 18:46 650 MG Ondansetron HCl 4 mg Q4HP PRN IV 12/04/24 03:30 Diagnostic Test (Pha) 1 strip ACHS 12/04/24 07:00 12/18/24 17:00 1 STRIP Pantoprazole Sodium 40 mg BID IV 12/04/24 06:45 12/18/24 09:52 40 MG Calcium Acetate 1,334 mg TIDWMEALS PO 12/08/24 12:00 12/16/24 12:11 1,334 MG Micafungin Sodium 100 mg/Sodium Chloride 100 ml @ 100 mls/hr DAILY IV 12/10/24 10:00 12/18/24 10:18 100 MLS/HR Gabapentin 200 mg HS PO 12/10/24 22:00 12/15/24 21:31 200 MG Nystatin 5 ml QID MT 12/10/24 16:00 12/16/24 12:11 5 ML Daptomycin 0 ml @ 0 mls/hr PER PHARMACY IV 12/10/24 20:30 Daptomycin 500 mg/ Sodium Chloride 50 ml @ 100 mls/hr Q48H IV 12/11/24 15:00 12/17/24 18:06 100 MLS/HR Multivit/Ca Carb/ B Cmplx/FA/Prenat 1 tab DAILY PO 12/12/24 10:00 12/16/24 09:37 1 TAB Enteral Nutritional Formula 27.5 gm DAILY PO 12/12/24 10:00 12/14/24 09:26 27.5 GM Ergocalciferol 50,000 unit Q7D PO 12/12/24 08:45 12/12/24 09:38 50,000 UNIT Enteral Nutritional Formula 240 ml BIDWM PO 12/13/24 08:00 12/17/24 08:21 240 ML Cefepime HCl 50 ml @ 12.5 mls/hr DAILY@2200 IV 12/14/24 22:00 12/17/24 21:41 12.5 MLS/HR Midodrine 15 mg TID@0600,1200,1800 PO 12/15/24 12:00 12/18/24 18:45 15 MG Sodium Chloride 10 ml QSHIFT@10,22 IV 12/16/24 22:00 12/18/24 10:18 10 ML Acetaminophen 325 mg Q6HP PRN AR 12/17/24 06:45 Epoetin Tonio-epbx 10,000 unit 2XW SC 12/17/24 12:00 Norepinephrine Bitartrate 250 ml @ 0.938 mls/ hr Q24H IV 12/18/24 06:30 Octreotide Acetate 100 mcg TID SUBCUT 12/18/24 14:00 12/18/24 14:02 100 MCG Dopamine HCl/ Dextrose 250 ml @ 6.413 mls/ hr Q24H IV 12/18/24 09:45 12/18/24 09:53 6.413 MLS/HR objective Gen.: Patient lying in bed in no apparent distress. On supplemental oxygen. Head: Normocephalic, atraumatic. Eyes: EOMI/PERRLA. Ears: Normal hearing. Normal anatomy. Neck/trachea: Trachea midline, supple. Nose: Normal external anatomy. Mouth: Moist mucous membranes. Chest: Decreased air entry bilaterally. No wheezing or rhonchi. Cardiovascular: Positive S1, positive S2. Regular rate and rhythm. Abdomen: Positive bowel sounds in all 4 quadrants. Soft, non-tender, non- distended. : Deferred. Rectal: Deferred. Skin: Warm, dry. Intact. Extremities: 2+ radial pulses bilaterally. No lower extremity edema. Neuro: Awake, alert, oriented x3. No gross motor or sensory deficits. Cranial nerves II through XII intact. Gait not assessed. laboratory and microbiology Laboratory Tests 12/18/24 04:58 Test 12/18/24 04:58 Range/Units Serum Glucose 109 H 74-106 mg/dL Assessment/Plan Impression: Acute hypoxic respiratory failure Dependence on supplemental oxygen Possible urinary tract infection CAD, s/p 3-vessel CABG. Septic shock Cerebrovascular accident Left pleural effusion Atelectasis Events: Remains on supplemental oxygen, 2 LPM NC Taper O2 as tolerated No distress. Hemodialysis per Nephrology - HD yesterday, removed 800 mL Hodgkin's lymphoma - awaiting bone marrow biopsy results. Pressors for hemodynamic support On dopamine at 2 mcg, renally dosed. Titrate to keep mean arterial pressure greater than 65 mmHg. Off Levophed Monitor blood pressure WBC trending down at 15.9 Hemodialysis per Nephrology Requiring Levophed during dialysis Monitor renal function. Monitor electrolytes. Supplement as necessary. Nephrology recommendations appreciated Head of bed elevation Aspiration precautions Pain control Avoid oversedation Continue antibiotics Continue antifungal Incentive spirometry Continue PT/OT Accu-Cheks Protonix BID Monitor hemoglobin Monitor platelets d/t thrombocytopenia Wound care Plan for hospice evaluation Labs and imaging reviewed. Rest of plan as noted below. Plan: Supplemental oxygen Titrate to keep O2 sats above 92%. Pressors as necessary for hemodynamic support Titrate to keep mean arterial pressure greater than 65 mmHg. Echocardiogram reviewed, notable for EF 50% Cardiology recs appreciated. Continue antibiotics Continue antifungal Incentive spirometry Accu-Cheks, ISS PRN. Monitor renal function. Monitor electrolytes. Supplement as necessary. Monitor ins and outs. Pond for strict ins and outs Plan for hospice evaluation. DVT prophylaxis. Prognosis: Poor given patient's multiple co-morbidities. Condition: Critical Rest of plan per hospitalist and other consultants. A total of 35 minutes of critical care time was spent reviewing the patient record, examining the patient, making a diagnostic and therapeutic plan, discussing this plan with the medical personnel, following up on diagnostic studies and following the patient for clinical stability excluding any and all procedures. At least 50% of this time was spent in direct, [id number] contact. Thank you, Dr. Smith, for allowing me to participate in this patient's care. Further recommendations will depend on the patient's clinical course. Please do not hesitate to contact me if you have any questions or concerns. This medical document was created using an electronic medical record system with [employer] dictation system. Although these documentations are being carefully reviewed, there may still be some phonetic and typographical changes. The errors are purely typographical, due to imperfection on the software program, and do not reflect any compromise in the patient's medical care. Dietary Evaluation Review Comments: 1) Ergocalciferol 50,000IU weekly 2) Jose L 1 pk daily, MVI w/ mineral 1 tab, Vit C 500mg BID, Zinc sulfate 220mg daily x 10 days 3) Advance to [id number] + renal special 80gm protein diet 4) Continue current plan of care Expected Outcomes/Goals: Advance diet to meet at least 75% estimated needs FU 2-3 days Plan discussed with: Other (VIJAY Ponce) Critical Care Time(min): 35 CC Plasma Assessment Blood Product Administration S: 11:05 JERAMY CAMARA MD Dec 18, 2024 20:54
[2024-12-19] VITALS (91 sets, daily range): BP systolic 98–143; BP diastolic 46–79; PULSE 75–92; RESP 11–23; TEMP 98.1–100; O2SAT 95–100
[2024-12-19 05:52] LABS: Hemoglobin 8.2 g/dL (13.5-17.5); Mean Corpuscular Hemoglobin 27.5 pg (28.0-32.0); Platelet Count (auto) 73 10^3/uL (140-450); Red Blood Cells 2.98 10^6/uL (4.5-5.90)
[2024-12-19 05:54] LABS: Hematocrit 24.5 % (41.0-53.0); Mean Corpuscular Hgb Conc. 33.5 g/dL (32.0-36.0); Mean Corpuscular Volume 82.1 fL (80.0-100.0); Red Cell Distribution Width 18.4 % (11.8-14.3)
[2024-12-19 05:58] LABS: Basophils % (manual) 0 (0.0-2.0); Blast Cells 0; Eosinophils % (manual) 0 (0-7); Promyelocytes % 0; Reactive Lymphocytes 0
[2024-12-19 06:03] LABS: Alanine Aminotransferase 36 U/L (7-40); Anion Gap 11 (5-15); Carbon Dioxide 24 mmol/L (20-31); Potassium 4.8 mmol/L (3.5-5.1)
[2024-12-19 06:05] LABS: Albumin 2.1 g/dL (3.2-4.8); Alkaline Phosphatase 927 U/L (46-116); Aspartate Aminotransferase 69 U/L (13-40); Blood Urea Nitrogen 79 mg/dL (9-23); Calcium 7.4 mg/dL (8.7-10.4); Chloride 96 mmol/L (98-107); Glucose 185 mg/dL (74-106); Sodium 131 mmol/L (136-145)
[2024-12-19 06:08] LABS: BUN/Creatinine Ratio 15.8 (10.0-20.0); Total Protein 4.9 g/dL (5.7-8.2)
[2024-12-19 06:47] LABS: Band Neutrophils % (manual) 5; Lymphocytes % (manual) 5 (10.0-50.0); Metamyelocytes % 1; Monocytes % (manual) 2 (0-12); Myelocytes % 1; Platelet Estimate Decreased
[2024-12-19 06:53] LABS: Large Platelets FEW
[2024-12-19 06:54] LABS: Anisocytosis Slight; Giant Platelets Few; Ovalocytes FEW; Target Cell FEW
[2024-12-19] MEDS: SODIUM CHL 0.9% 1000 ML BAG XX ONE (07:00)
--- NOTE | 2024-12-19 09:06 | DVHPN2 ---
Progress Note - Dictate Date Seen: Dec 19, 2024 Has the PT tested + for MRSA If YES, has PT been informed?: No Medical Necessity Reason Pt with a Central, PICC or Fol: Yes The following are medically ne: Pond Catheter Reason for pond catheter: Bladder Retention/Obstruc, Strict I&O Subjective Mr. Narciso White is a 59 years old right-handed gentleman with a history of hypertension, diabetes, dyslipidemia, coronary artery disease, heart attack, recent CABG, he was taken to the [facility] on 12/03/2024 with a chief company of fever. But he was also developed acute stroke syndrome I have seen and examined the patient, discussed with his nurse, is in the room with him. He is awake, oriented to person only, his voice is weak and he only talks a little bit, he does not move the extremities He has jaundice The case was discussed with primary care team, agreed the patient was may have depression UDS, 12/04/2024: Negative Urinalysis, 12/04/2024: WBC: 1, urine leukocyte esterase: Negative WBC/HB/PLT/MCV, 12/06/2024: 0.6/7.8/147/84.5 12/07/2024: 0.8/8.2/141/84.2, 12/17/2024: 16.3/8.4/67/82.3 PTT/INR/PTT, 12/05/2024: 12.4/1.19/37.2 BUN/CR, 12/06/2024: 82/3.64, 12/12/2024: 48/3.67, 12/18/2024: 62/4.21 HGB A1c, 12/04/2024: 5.9 TBI/AST/ALT/AP, 12/06/2024: 1.5/68/37/454, 12/10/2024: 3.5/88/36/616 12/12/2024: 5/76/29/825, both 05/06: 11.1/82/35/184 TG/HDL/LDL/HDL, 12/06/2024: 138/79/20/11, 12/07/2024: 141/77/20/9 Vitamin B12, 11/2024: 1395 TSH, 11/2024: 0.7 SIFE, 12/06/2024: Iron/TIBC/Sat, 12/10/2024: 34/123/27.5 Ferritin, 12/10/2024: >3300 Carotid Doppler, 12/07/2024: No hemodynamically significant stenosis within the carotid arteries Echocardiogram, 12/05/2024: Sinus rhythm. Left atrial enlargement with dilation of the sinuses of Valsalva. Mild RV enlargement. Moderate aortic sclerosis with diminished excursion of the leaflets and calcification of what appears to be the right and non coronary cusps. From the short axis view there does not appear to be limitation in motion. Normal pulmonic valve. Left ventricular function appears preserved. EF of about 50% with normal RV function. The tricuspid is normal. Doppler reveals some mild to moderate TR. No pericardial effusion masses or vegetations EMILY, 12/07/2024: Normal chamber dimensions. Valves appear to be structurally normal. Normal aortic mitral tricuspid and pulmonic valves Left ventricular function was preserved at 60% with normal RV function. Doppler reveals mild tricuspid insufficiency. Mild mitral insufficiency. No pericardial effusion masses or vegetations noted. The atrial appendage is normal. There are no thrombi present. Bubble study did not reveal crossover into the left side. Abnormal shunting otherwise present. MRI brain, 12/06/2024: 1. There is a small area of restricted diffusion involving the anterior body / genu of the corpus callosum consistent with an acute to subacute infarct. There is no evidence of acute hemorrhage. There is no mass effect. 2. There are additional scattered punctate foci of restricted diffusion in the bilateral frontal and right parietal lobe deep white matter which may represent tiny foci of acute to subacute infarcts Lymph node biopsy, 12/06/24: Hodgkin's lymphoma MRI brain, 12/18/2024: Limited views of the brain are provided with limited evaluation of the provided views due to motion artifact. Subacute appearing infarct of the genu/anterior body of the corpus callosum. The additional scattered punctate foci of diffusion restriction within the bilateral frontal and parietal lobes noted on prior imaging appear significantly less conspicuous on current study. No new areas of diffusion restriction are noted within the limitations of motion artifact. Bone marrow aspiration: myeloid dysmaturation without overt increase in blasts, monocytes 32% vital signs Vital Sign Date Time Temp Pulse Resp B/P (MAP) Pulse Ox O2 Delivery O2 Flow Rate FiO2 12/19/24 07:15 77 17 116/64 (81) 100 12/19/24 06:00 Nasal Cannula* 2 28 12/19/24 04:00 98.8 98.8 Total Intake and Output 12/18/24 12/18/24 12/19/24 15:00 23:00 07:00 Intake Total 147.856 ml 161.704 ml 237.304 ml Output Total 5 ml 25 ml Balance 147.856 ml 156.704 ml 212.304 ml medications Current Medications Medications Dose Ordered Sig/Shavon Route Start Time Stop Time Status Last Admin Dose Admin Acetaminophen 650 mg Q6HP PRN PO 12/04/24 03:30 12/18/24 18:46 650 MG Ondansetron HCl 4 mg Q4HP PRN IV 12/04/24 03:30 Diagnostic Test (Pha) 1 strip ACHS 12/04/24 07:00 12/19/24 06:26 1 STRIP Pantoprazole Sodium 40 mg BID IV 12/04/24 06:45 12/18/24 21:52 40 MG Calcium Acetate 1,334 mg TIDWMEALS PO 12/08/24 12:00 12/16/24 12:11 1,334 MG Micafungin Sodium 100 mg/Sodium Chloride 100 ml @ 100 mls/hr DAILY IV 12/10/24 10:00 12/18/24 10:18 100 MLS/HR Gabapentin 200 mg HS PO 12/10/24 22:00 12/18/24 21:53 200 MG Nystatin 5 ml QID MT 12/10/24 16:00 12/16/24 12:11 5 ML Daptomycin 0 ml @ 0 mls/hr PER PHARMACY IV 12/10/24 20:30 Daptomycin 500 mg/ Sodium Chloride 50 ml @ 100 mls/hr Q48H IV 12/11/24 15:00 12/17/24 18:06 100 MLS/HR Multivit/Ca Carb/ B Cmplx/FA/Prenat 1 tab DAILY PO 12/12/24 10:00 12/16/24 09:37 1 TAB Enteral Nutritional Formula 27.5 gm DAILY PO 12/12/24 10:00 12/14/24 09:26 27.5 GM Ergocalciferol 50,000 unit Q7D PO 12/12/24 08:45 12/12/24 09:38 50,000 UNIT Enteral Nutritional Formula 240 ml BIDWM PO 12/13/24 08:00 12/17/24 08:21 240 ML Cefepime HCl 50 ml @ 12.5 mls/hr DAILY@2200 IV 12/14/24 22:00 12/18/24 21:52 12.5 MLS/HR Midodrine 15 mg TID@0600,1200,1800 PO 12/15/24 12:00 12/19/24 06:25 15 MG Sodium Chloride 10 ml QSHIFT@10,22 IV 12/16/24 22:00 12/18/24 21:52 10 ML Acetaminophen 325 mg Q6HP PRN DC 12/17/24 06:45 Epoetin Tonio-epbx 10,000 unit 2XW SC 12/17/24 12:00 Norepinephrine Bitartrate 250 ml @ 0.938 mls/ hr Q24H IV 12/18/24 06:30 Octreotide Acetate 100 mcg TID SUBCUT 12/18/24 14:00 12/19/24 06:25 100 MCG Dopamine HCl/ Dextrose 250 ml @ 6.413 mls/ hr Q24H IV 12/18/24 09:45 12/18/24 09:53 6.413 MLS/HR objective General: the patient is well developed and nourished. No acute distress. MENTAL STATUS: Subjective SPEECH, LANGUAGE, HIGHER CORTICAL FUNCTION: no aphasia or dysathria. CRANIAL NERVES: Pupils are equal, round and reactive. EOMs full and conjugate. No nystagmus. Facial sensation intact in all three divisions bilaterally. Mandibular strength intact. Facial muscles symmetrical and strength intact. SENSATION: Sensation to touch and pinprick is diminished distally in the lower extremities, but no [id number] differences MOTOR: Normal tone in the upper and lower extremity. Normal muscle bulk. No fasciculations. No abnormal movements or posturing. Subjective REFLEXES: Deep tendon reflexes are symmetrical. No pathological reflexes. CEREBELLAR/COORDINATION: No ataxia in the upper extremities GAIT/STATION: deferred. laboratory and microbiology Laboratory Tests 12/19/24 04:50 Test 12/19/24 04:50 Range/Units Serum Glucose 185 H 74-106 mg/dL Problem List Altered mental status, general weakness Metabolic encephalopathy ? New stroke Recent acute stroke with left-sided weakness Acute stroke syndrome MRI evident multiple acute strokes (11/08/2024) Pancytopenia/rule out malignancy Anemia Fever/sepsis Septic shock Coronary artery disease with recent CABG Diabetic polyneuropathy Restless leg syndrome Anemia Elevated liver function tests Hodgkin's lymphoma Jaundice Depression Assessment/Plan Monitoring Supportive treatment Psychiatry evaluation ICU care IV antibiotics Aspirin 81 mg daily Lipitor 75 mg daily Gabapentin 200 mg in the evening Physical therapist GI prophylaxis Up to chair He is aware of neuropathy related foot care More recommendation per clinical course This medical document was created using an electronic medical record system with [employer] dictation system. Although this document has been carefully reviewed, there may still be some phonetic and typographical errors. These areas are purely typographical due to imperfections of the software programs, and do not reflect any compromise in the patient's medical care. Prognosis poor Dietary Evaluation Review Comments: 1) Ergocalciferol 50,000IU weekly 2) Jose L 1 pk daily, MVI w/ mineral 1 tab, Vit C 500mg BID, Zinc sulfate 220mg daily x 10 days 3) Advance to [id number] + renal special 80gm protein diet 4) Continue current plan of care Expected Outcomes/Goals: Advance diet to meet at least 75% estimated needs FU 2-3 days Plan discussed with: Other CC Plasma Assessment Blood Product Administration S: 11:05 NIKOLAS PRATT MD Dec 19, 2024 09:06
--- NOTE | 2024-12-19 09:19 | DVHPNRES ---
Progress Note Date Seen: Dec 19, 2024 Resident Creating Document: KAMILLE VÁSQUEZ RESIDENT Has the PT tested + for MRSA If YES, has PT been informed?: No Medical Necessity Reason Pt with a Central, PICC or Fol: Yes The following are medically ne: Pond Catheter Reason for pond catheter: Bladder Retention/Obstruc, Strict I&O Subjective Review of Systems A 59-year-old male with a past medical history of coronary artery disease status post CABG in October 2024, ischemic stroke oct 2024, status post bed bound and chronic indwelling Pond, hypertension, and hyperlipidemia. He was brought to the ER by the family with a chief complaint of heavy breathing, fever, chills, and anuria for the past 3 days. Per the daughter at bedside, the patient had never followed up with urology or cardiology after he was discharged from this facility on 11/07/24. He usually makes 1600 cc of urine a day. Per daughter, patient has a wound in his back and is also draining a white pus-like substance. Patient also reported dysuria and abdominal discomfort. He also reports heavy breathing and mild nonproductive cough. On arrival, patient was febrile at 101.2F, tachycardic, blood pressure 144/77, and requiring 4 L oxygen supplementation. White cell count was 3.6, hemoglobin 8.8, and hematocrit 23. Patient had hyperkalemia, potassium was 6 which downtrended to 5.4. Creatinine was 2.9 and BUN 77. Patient's Pond catheter was removed in ED after being in place for more than a month, the patient does not urinate on his own, bladder scan showed empty bladder, nephrology was consulted. Chest x-ray shows bibasilar consolidation. The patient has mildly elevated transaminases. 12/05/[address] findings of substernal soft tissue density: new echo ordered, azithromycin was added to cover atypicals and hyperkalemia protocol was done, patient is having febrile neutropenia, CT scan of abdomen showed right groin lymphadenopathy, lymphadenopathy biopsy was done. 1 RBC was transfused per cardiology. 12/06/24 at 5:30 pm, patient had an episode of AMS, weakness, and hypotension, increased left leg weakness and left facial droop. CT scan negative for stroke or hemorrhage, patient was placed on Levophed and weaned off at 8 pm, fluids IV 100 cc during the night, today x-ray showed mild congestion. IV fluids reduced to 60cc and furosemide IV was started. New MRI showed multiple small strokes in different places; probably cardiembolic etiology. Neurology Dr. Cabral, stated no need for CTA or thrombectomy, also transfer to [facility] was planned but according to the center he had his CABG, patient can be managed in [facility]. Also, nephrology consulted. 12/07/24: EMILY was ordered and will be done today. Worsening renal function; nephrology will discuss possible hemodialysis with the patient and his family. 12/08/24: EMILY negative, neupogen started, patient had fever last night, new pancultures, renal function is trending high, dialysis catheter placed on the left, new K normal on place, possible HD today. 12/10/24: Stop plavix, patient continues to have fevers, cultures prelim negative, pending bone marrow biopsy. 12/11/24: ID was consulted, vancomycin was changed for daptomycin, further studies were ordered to study possible source of infection, WBC is trending high, last fever 12/10 4pm, HD was done but patient needed levophed 2mcg, bilirubin is trending high, EPO was started by Nephro 12/12/24: lymph node biopsy: Hodgkin lymphoma, diagnosis disccused with family, patient still having fevers and diarrhea, necrotic ulcer assessed by dr Jacinto no need of intervention. 12/13/24: wbc is trending high, 6 episodes of diarrhea, today we are going to continue with metamucil and start midodrine, pending HD 12/17/24: WBC is trending high, DC filgastrim, patient still having fevers, less episodes of diarrhea, on and off levophed, after HD the idea is to DC levophed, keep MAP > 60 no 65 12/18/24: wbc is stable, patient still having fevers, levophed was up 1 mcg, MRI ordered by neurology didn't show acute changes, case extensively discussed with the , explaining her about the poor prognosis and the hospice option 12/19/24: patient still having fevers, the sacral wound looks more necrotic than before, Dr Jacinto will take the patient to [facility] tomorrow am, off levophed, still on dopamine drip, today dialysis, patient is depressed, telepsych consult, start citalopram Objective vital signs Vital Sign Date Time Temp Pulse Resp B/P (MAP) Pulse Ox O2 Delivery O2 Flow Rate FiO2 12/19/24 08:00 13 100 Nasal Cannula* 2 28 12/19/24 07:15 77 116/64 (81) 12/19/24 04:00 98.8 98.8 Total Intake and Output 12/18/24 12/18/24 12/19/24 15:00 23:00 07:00 Intake Total 147.856 ml 161.704 ml 237.304 ml Output Total 5 ml 25 ml Balance 147.856 ml 156.704 ml 212.304 ml medications Current Medications Medications Dose Ordered Sig/Shavon Route Start Time Stop Time Status Last Admin Dose Admin Acetaminophen 650 mg Q6HP PRN PO 12/04/24 03:30 12/18/24 18:46 650 MG Ondansetron HCl 4 mg Q4HP PRN IV 12/04/24 03:30 Diagnostic Test (Pha) 1 strip ACHS 12/04/24 07:00 12/19/24 06:26 1 STRIP Pantoprazole Sodium 40 mg BID IV 12/04/24 06:45 12/18/24 21:52 40 MG Calcium Acetate 1,334 mg TIDWMEALS PO 12/08/24 12:00 12/16/24 12:11 1,334 MG Micafungin Sodium 100 mg/Sodium Chloride 100 ml @ 100 mls/hr DAILY IV 12/10/24 10:00 12/18/24 10:18 100 MLS/HR Gabapentin 200 mg HS PO 12/10/24 22:00 12/18/24 21:53 200 MG Nystatin 5 ml QID MT 12/10/24 16:00 12/16/24 12:11 5 ML Daptomycin 0 ml @ 0 mls/hr PER PHARMACY IV 12/10/24 20:30 Daptomycin 500 mg/ Sodium Chloride 50 ml @ 100 mls/hr Q48H IV 12/11/24 15:00 12/17/24 18:06 100 MLS/HR Multivit/Ca Carb/ B Cmplx/FA/Prenat 1 tab DAILY PO 12/12/24 10:00 12/16/24 09:37 1 TAB Enteral Nutritional Formula 27.5 gm DAILY PO 12/12/24 10:00 12/14/24 09:26 27.5 GM Ergocalciferol 50,000 unit Q7D PO 12/12/24 08:45 12/12/24 09:38 50,000 UNIT Enteral Nutritional Formula 240 ml BIDWM PO 12/13/24 08:00 12/17/24 08:21 240 ML Cefepime HCl 50 ml @ 12.5 mls/hr DAILY@2200 IV 12/14/24 22:00 12/18/24 21:52 12.5 MLS/HR Midodrine 15 mg TID@0600,1200,1800 PO 12/15/24 12:00 12/19/24 06:25 15 MG Sodium Chloride 10 ml QSHIFT@10,22 IV 12/16/24 22:00 12/18/24 21:52 10 ML Acetaminophen 325 mg Q6HP PRN [place] 12/17/24 06:45 Epoetin Tonio-epbx 10,000 unit 2XW SC 12/17/24 12:00 Norepinephrine Bitartrate 250 ml @ 0.938 mls/ hr Q24H IV 12/18/24 06:30 Octreotide Acetate 100 mcg TID SUBCUT 12/18/24 14:00 12/19/24 06:25 100 MCG Dopamine HCl/ Dextrose 250 ml @ 6.413 mls/ hr Q24H IV 12/18/24 09:45 12/18/24 09:53 6.413 MLS/HR Examination General: Afebrile, icteric, mucosae are moist Cardiovascular: sternal wound clean, sternum stable, regular S1 and S2. No murmurs, gallops or rubs. No JVD elevation. No pedal edema. HD cath placed Respiratory: Normal B/L air entry on 2 L NC. Clear lung sounds on auscultation Abdomen: Soft, nontender, nondistended, normoactive bowel sounds, no rebound tenderness, no organomegaly, no masses. Neurological: Residual left lower extremity weakness.. Pupils are isocoric and reactive. Psych/Mental Status: A/Ox3 Patient has a sacral decubitus ulcer, necrotic laboratory and microbiology Laboratory Tests 12/19/24 04:50 Test 12/19/24 04:50 Range/Units Serum Glucose 185 H 74-106 mg/dL Microbiology Date/Time Source Procedure Growth Status 12/12/24 13:20 Stool Stool Culture - Final Complete 12/12/24 13:20 Stool Shiga Toxin I & II - Final Complete 12/11/24 15:31 Sputum Gram Stain - Final Complete 12/11/24 15:31 Sputum Respiratory Culture - Final Complete 12/10/24 10:17 Sacrum Gram Stain - Final Complete 12/10/24 10:17 Wound Culture - Final Enterococcus faecalis Presumptive Halima albicans Complete 12/10/24 10:17 Voided Urine Urine Culture - Final Complete 12/08/24 14:39 Blood Blood Culture - Final NO GROWTH AFTER 5 DAYS OF INCUBATION. Complete Problem List/Assessment/Plan Problem List/Assessment/Plan Hematology #Hodgkin Lymphoma #Pancitopenia resolved #neutropenia resolved #Retroperitoneal lymphadenopathy #Normochromic and normocytic Anemia multifactorial: rule out neoplasm, CKD #Thrombocytopenia Lymph node biopsy done: Hodgkin Lymphoma Check hepatitis panel NOLBERTO double-stranded DNA CMV Christine-Deshpande virus, protein electrophoresis: Igg for CMV and EBV positive 2RBC given FOB negative Shank Pinner on board MAURICE Pastor stated that the patient will need chemotherapy when he is stable as outpatient Patient still having fevers BM aspiration: myeloid dysmaturation without overt increase in blasts, monocytes 32% Neurology #Acute metabolic/hypoxic encephalopathy due to stroke and sepsis #Possible acute cardioembolic stroke: corpus callosum, bilateral frontal and right parietal #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 There is no evidence of acute hemorrhage. There is no mass effect. There are additional scattered punctate foci of restricted diffusion in the bilateral frontal and right parietal lobe deep white matter which may represent tiny foci of acute to subacute infarcts. Bran MRI oct 2024: There prominent diffusion restriction also seen within the genu and anterior body of the corpus callosum. There is an apparent punctate additional focus of diffusion restriction in the medulla Neurology on board Aspirin continue Continue atorvastatin 40 mg EMILY normal Carotid duplex: No hemodynamically significant stenosis within the carotid arteries Pregabalin trial per neuro Need of PT Cardiology #Severe coronary artery disease status post triple-vessel CABG #Substernal soft tissue density likely secondary to recent CABG #Possible acute on Chronic HFpEF, NYHA class III Cardiology signed off 12/05/24 ECHO: Left atrial enlargement with dilation of the sinuses of Valsalva. Mild RV enlargement. Moderate aortic sclerosis with diminished excursion of the leaflets and calcification of what appears to be the right and non coronary cusps. Left ventricular function appears preserved. EF of about 50% with normal RV function. The tricuspid is normal. Doppler reveals some mild to moderate TR. No pericardial effusion masses or vegetations. 12/04/24: Substernal soft tissue density and stranding without a large fluid collection. Fat stranding is nonspecific and should be correlated with timing of surgery. Alternatively this could reflect an infectious or inflammatory etiology. Small bilateral pleural effusions and passive atelectasis. Cardiomegaly. Aspirin continue Continue atorvastatin 40 mg Hold on other GDMT: GOPAL and shock HD Levophed off and dopamine drip Albumin IV Midodrine Pulmonology #Septic shock due to possible pneumonia #Acute respiratory failure #PNA gram+/gram- #Small bilateral pleural effusions #Passive atelectasis #Mixed base disorder: respiratory alkalosis and metabolic acidosis Inventory Assistant and critical care on board Cefepime + Micafungin MRSA nares negative O2 2LT GI #Transaminitis secondary to chronic liver disease #Gallbladder polyps #Hyperbilirubinemia #Questionable typhlitis #Diarrhea in immunocompromised patoent Coarsened liver echotexture suggestive of chronic liver disease. Trace ascites. Partially visualized trace right pleural effusion. Gallbladder polyps measuring up to 0.4 cm FOB negative MRCP negative for acute pathology GGT high, AP high, bilirubins are trending high Renal #GOPAL due to septic shock #ESRD #Dialysis urgency #Severe fluid overload #Hyperkalemia secondary to CKD #Hyperparathyroidism #Mixed base disorder: respiratory alkalosis and metabolic acidosis #Chronic indwelling Pond Urine culture came negative Community Facilitator on board EPO, dopamine drip and octeotride per nephro Infectious #Febrile neutropenia #Septic shock due to possible pneumonia? #Possible septic emboli? #sacral wound #Rule out opportunistic infections #Possible tiflitis EMILY neg Daptomycin + Cefepime + Micafungin Patient had a sacral wound, cultures ordered: prelim yeast and gram + Multiple studies ordered to rule out opportunistic infection on severe immunocompromised patient Last fever 12/11 Dr Jacinto assessed the wound: no need for surgery for now Endocrinology #Hypoglycemia #Prediabetes Diabetic diet Stop insulin Cortisol AM: normal 12/19/24: patient still having fevers, the sacral wound looks more necrotic than before, Dr Jacinto will take the patient to [facility] tomorrow am, off levophed, still on dopamine drip, today dialysis, patient is depressed, telepsych consult, start citalopram Case discussed with Dr Salas Plan discussed with: Patient, Other (rn) My Orders My Orders Orders - KAMILLE VÁSQUEZ Procedure Category Date Status Time Cortisol Am LAB 12/18/24 In Process 11:30 Phosphorus LAB 12/19/24 In Process 08:48 Dietary Evaluation Review Comments: 1) Ergocalciferol 50,000IU weekly 2) Jose L 1 pk daily, MVI w/ mineral 1 tab, Vit C 500mg BID, Zinc sulfate 220mg daily x 10 days 3) Advance to [id number] + renal special 80gm protein diet 4) Continue current plan of care Expected Outcomes/Goals: Advance diet to meet at least 75% estimated needs FU 2-3 days CC Plasma Assessment Blood Product Administration S: 11:05 Date of Service: Dec 19, 2024 Billing Provider: RADHA SALAS MD Common Visit Codes: [id number] INP/OBS CARE(HIGH) KAMILLE VÁSQUEZ RESIDENT Dec 19, 2024 09:19 RADHA SALAS MD Dec 25, 2024 21:17
[2024-12-19] MEDS: ALBUMIN 25% 100 ML IV ONE ×4 (10:29→14:28)
--- NOTE | 2024-12-19 11:22 | DVHPNRES ---
Progress Note Has the PT tested + for MRSA If YES, has PT been informed?: No Medical Necessity Reason Pt with a Central, PICC or Fol: Yes The following are medically ne: Pond Catheter Reason for pond catheter: Bladder Retention/Obstruc, Strict I&O Objective vital signs Vital Sign Date Time Temp Pulse Resp B/P (MAP) Pulse Ox O2 Delivery O2 Flow Rate FiO2 12/19/24 10:45 75 17 100/57 (71) 100 12/19/24 10:00 Nasal Cannula* 2 28 12/19/24 08:00 98.1 98.1 Total Intake and Output 12/18/24 12/18/24 12/19/24 15:00 23:00 07:00 Intake Total 147.856 ml 161.704 ml 237.304 ml Output Total 5 ml 25 ml Balance 147.856 ml 156.704 ml 212.304 ml medications Current Medications Medications Dose Ordered Sig/Shavon Route Start Time Stop Time Status Last Admin Dose Admin Acetaminophen 650 mg Q6HP PRN PO 12/04/24 03:30 12/18/24 18:46 650 MG Ondansetron HCl 4 mg Q4HP PRN IV 12/04/24 03:30 Diagnostic Test (Pha) 1 strip ACHS 12/04/24 07:00 12/19/24 06:26 1 STRIP Pantoprazole Sodium 40 mg BID IV 12/04/24 06:45 12/19/24 10:28 40 MG Calcium Acetate 1,334 mg TIDWMEALS PO 12/08/24 12:00 12/16/24 12:11 1,334 MG Micafungin Sodium 100 mg/Sodium Chloride 100 ml @ 100 mls/hr DAILY IV 12/10/24 10:00 12/19/24 10:28 100 MLS/HR Gabapentin 200 mg HS PO 12/10/24 22:00 12/18/24 21:53 200 MG Nystatin 5 ml QID MT 12/10/24 16:00 12/16/24 12:11 5 ML Daptomycin 0 ml @ 0 mls/hr PER PHARMACY IV 12/10/24 20:30 Daptomycin 500 mg/ Sodium Chloride 50 ml @ 100 mls/hr Q48H IV 12/11/24 15:00 12/17/24 18:06 100 MLS/HR Multivit/Ca Carb/ B Cmplx/FA/Prenat 1 tab DAILY PO 12/12/24 10:00 12/16/24 09:37 1 TAB Enteral Nutritional Formula 27.5 gm DAILY PO 12/12/24 10:00 12/14/24 09:26 27.5 GM Ergocalciferol 50,000 unit Q7D PO 12/12/24 08:45 12/12/24 09:38 50,000 UNIT Enteral Nutritional Formula 240 ml BIDWM PO 12/13/24 08:00 12/17/24 08:21 240 ML Cefepime HCl 50 ml @ 12.5 mls/hr DAILY@2200 IV 12/14/24 22:00 12/18/24 21:52 12.5 MLS/HR Midodrine 15 mg TID@0600,1200,1800 PO 12/15/24 12:00 12/19/24 06:25 15 MG Sodium Chloride 10 ml QSHIFT@10,22 IV 12/16/24 22:00 12/19/24 10:06 10 ML Acetaminophen 325 mg Q6HP PRN LA 12/17/24 06:45 Epoetin Tonio-epbx 10,000 unit 2XW SC 12/17/24 12:00 Norepinephrine Bitartrate 250 ml @ 0.938 mls/ hr Q24H IV 12/18/24 06:30 Octreotide Acetate 100 mcg TID SUBCUT 12/18/24 14:00 12/19/24 06:25 100 MCG Dopamine HCl/ Dextrose 250 ml @ 6.413 mls/ hr Q24H IV 12/18/24 09:45 12/18/24 09:53 6.413 MLS/HR Citalopram Hydrobromide 10 mg DAILY PO 12/20/24 10:00 UNV laboratory and microbiology Laboratory Tests 12/19/24 04:50 Test 12/19/24 04:50 Range/Units Serum Glucose 185 H 74-106 mg/dL Microbiology Date/Time Source Procedure Growth Status 12/12/24 13:20 Stool Stool Culture - Final Complete 12/12/24 13:20 Stool Shiga Toxin I & II - Final Complete 12/11/24 15:31 Sputum Gram Stain - Final Complete 12/11/24 15:31 Sputum Respiratory Culture - Final Complete 12/10/24 10:17 Sacrum Gram Stain - Final Complete 12/10/24 10:17 Wound Culture - Final Enterococcus faecalis Presumptive Halima albicans Complete 12/10/24 10:17 Voided Urine Urine Culture - Final Complete 12/08/24 14:39 Blood Blood Culture - Final NO GROWTH AFTER 5 DAYS OF INCUBATION. Complete Problem List/Assessment/Plan Problem List/Assessment/Plan Hematology #Hodgkin Lymphoma #Pancitopenia #neutropenia resolved #Retroperitoneal lymphadenopathy #Normochromic and normocytic Anemia multifactorial: rule out neoplasm, CKD Lymph node biopsy done: Hodgkin Lymphoma Check hepatitis panel NOLBERTO double-stranded DNA CMV Christine-Deshpande virus, protein electrophoresis: Igg for CMV and EBV positive 2RBC given FOB negative House Fellow on board DC Neupogen Dr Pastor stated that the patient will need chemotherapy when he is stable as outpatient Patient still having fevers BM aspiration: myeloid dysmaturation without overt increase in blasts, monocytes 32% Neurology #Acute metabolic/hypoxic encephalopathy due to stroke and sepsis #Possible acute cardioembolic stroke: corpus callosum, bilateral frontal and right parietal #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 There is no evidence of acute hemorrhage. There is no mass effect. There are additional scattered punctate foci of restricted diffusion in the bilateral frontal and right parietal lobe deep white matter which may represent tiny foci of acute to subacute infarcts. Bran MRI oct 2024: There prominent diffusion restriction also seen within the genu and anterior body of the corpus callosum. There is an apparent punctate additional focus of diffusion restriction in the medulla Neurology on board Aspirin continue Continue atorvastatin 40 mg EMILY normal Carotid duplex: No hemodynamically significant stenosis within the carotid arteries Pregabalin trial per neuro Need of PT Cardiology #Severe coronary artery disease status post triple-vessel CABG #Substernal soft tissue density likely secondary to recent CABG #Possible acute on Chronic HFpEF, NYHA class III Cardiology signed off 12/05/24 ECHO: Left atrial enlargement with dilation of the sinuses of Valsalva. Mild RV enlargement. Moderate aortic sclerosis with diminished excursion of the leaflets and calcification of what appears to be the right and non coronary cusps. Left ventricular function appears preserved. EF of about 50% with normal RV function. The tricuspid is normal. Doppler reveals some mild to moderate TR. No pericardial effusion masses or vegetations. 12/04/24: Substernal soft tissue density and stranding without a large fluid collection. Fat stranding is nonspecific and should be correlated with timing of surgery. Alternatively this could reflect an infectious or inflammatory etiology. Small bilateral pleural effusions and passive atelectasis. Cardiomegaly. Aspirin continue Continue atorvastatin 40 mg Hold on other GDMT: GOPAL and shock HD Levophed 1 mcg Albumin IV Midodrine Pulmonology #Septic shock due to possible pneumonia #Acute respiratory failure #PNA gram+/gram- #Small bilateral pleural effusions #Passive atelectasis #Mixed base disorder: respiratory alkalosis and metabolic acidosis Job Superintendent and critical care on board Cefepime + Micafungin MRSA nares negative O2 2LT GI #Transaminitis secondary to chronic liver disease #Gallbladder polyps #Hyperbilirubinemia #Questionable typhlitis #Diarrhea in immunocompromised patoent Coarsened liver echotexture suggestive of chronic liver disease. Trace ascites. Partially visualized trace right pleural effusion. Gallbladder polyps measuring up to 0.4 cm FOB negative MRCP negative for acute pathology GGT high, AP high, bilirubins are trending high Renal #GOPAL due to septic shock #ESRD #Dialysis urgency #Severe fluid overload #Hyperkalemia secondary to CKD #Hyperparathyroidism #Mixed base disorder: respiratory alkalosis and metabolic acidosis #Chronic indwelling Pond Urine culture came negative Computer Forensics Analyst on board EPO per nephro HD tomorrow Infectious #Febrile neutropenia #Septic shock due to possible pneumonia? #Possible septic emboli? #sacral wound #Rule out opportunistic infections #Possible tiflitis EMILY neg Daptomycin + Cefepime + Micafungin Patient had a sacral wound, cultures ordered: prelim yeast and gram + Multiple studies ordered to rule out opportunistic infection on severe immunocompromised patient Last fever 12/11 Dr Jacinto assessed the wound: no need for surgery for now Endocrinology #Hypoglycemia #Prediabetes Diabetic diet Stop insulin Cortisol AM 12/18/24: wbc is stable, patient still having fevers, levophed was up 1 mcg, MRI ordered by neurology didn't show acute changes, case extensively discussed with the , explaining her about the poor prognosis and the hospice option Case discussed with Dr Salas My Orders My Orders Orders - KAMILLE VÁSQUEZ RESIDENT Procedure Category Date Status Time *Tele Psych Consult CONS 12/19/24 Transmitted 10:35 Citalopram Tablet PHA 12/20/24 Logged (Celexa Tablet) 10:00 * Swallow Request ST 12/19/24 Transmitted 10:35 Dietary Evaluation Review Comments: 1) Ergocalciferol 50,000IU weekly 2) Jose L 1 pk daily, MVI w/ mineral 1 tab, Vit C 500mg BID, Zinc sulfate 220mg daily x 10 days 3) Advance to [id number] + renal special 80gm protein diet 4) Continue current plan of care Expected Outcomes/Goals: Advance diet to meet at least 75% estimated needs FU 2-3 days CC Plasma Assessment Blood Product Administration S: 11:05 KAMILLE VÁSQUEZ RESIDENT Dec 19, 2024 11:22
--- NOTE | 2024-12-19 11:57 | DVHPN2 ---
Progress Note Date Seen: Dec 19, 2024 Has the PT tested + for MRSA If YES, has PT been informed?: No Medical Necessity Reason Pt with a Central, PICC or Fol: Yes The following are medically ne: Pond Catheter Reason for pond catheter: Bladder Retention/Obstruc, Strict I&O Subjective Patient reports: No new complaints Other Systems: Patient seen and examined by myself today in follow-up, at the bedside Patient examined hemodialysis, blood pressure stable Objective vital signs Vital Sign Date Time Temp Pulse Resp B/P (MAP) Pulse Ox O2 Delivery O2 Flow Rate FiO2 12/19/24 11:30 76 19 112/56 (74) 100 12/19/24 11:00 100.0 100.0 12/19/24 10:00 Nasal Cannula* 2 28 Total Intake and Output 12/18/24 12/18/24 12/19/24 15:00 23:00 07:00 Intake Total 147.856 ml 161.704 ml 237.304 ml Output Total 5 ml 25 ml Balance 147.856 ml 156.704 ml 212.304 ml medications Current Medications Medications Dose Ordered Sig/Shavon Route Start Time Stop Time Status Last Admin Dose Admin Acetaminophen 650 mg Q6HP PRN PO 12/04/24 03:30 12/18/24 18:46 650 MG Ondansetron HCl 4 mg Q4HP PRN IV 12/04/24 03:30 Diagnostic Test (Pha) 1 strip ACHS 12/04/24 07:00 12/19/24 11:36 1 STRIP Pantoprazole Sodium 40 mg BID IV 12/04/24 06:45 12/19/24 10:28 40 MG Calcium Acetate 1,334 mg TIDWMEALS PO 12/08/24 12:00 12/16/24 12:11 1,334 MG Micafungin Sodium 100 mg/Sodium Chloride 100 ml @ 100 mls/hr DAILY IV 12/10/24 10:00 12/19/24 10:28 100 MLS/HR Gabapentin 200 mg HS PO 12/10/24 22:00 12/18/24 21:53 200 MG Nystatin 5 ml QID MT 12/10/24 16:00 12/16/24 12:11 5 ML Daptomycin 0 ml @ 0 mls/hr PER PHARMACY IV 12/10/24 20:30 Daptomycin 500 mg/ Sodium Chloride 50 ml @ 100 mls/hr Q48H IV 12/11/24 15:00 12/17/24 18:06 100 MLS/HR Multivit/Ca Carb/ B Cmplx/FA/Prenat 1 tab DAILY PO 12/12/24 10:00 12/16/24 09:37 1 TAB Enteral Nutritional Formula 27.5 gm DAILY PO 12/12/24 10:00 12/14/24 09:26 27.5 GM Ergocalciferol 50,000 unit Q7D PO 12/12/24 08:45 12/12/24 09:38 50,000 UNIT Enteral Nutritional Formula 240 ml BIDWM PO 12/13/24 08:00 12/17/24 08:21 240 ML Cefepime HCl 50 ml @ 12.5 mls/hr DAILY@2200 IV 12/14/24 22:00 12/18/24 21:52 12.5 MLS/HR Midodrine 15 mg TID@0600,1200,1800 PO 12/15/24 12:00 12/19/24 06:25 15 MG Sodium Chloride 10 ml QSHIFT@10,22 IV 12/16/24 22:00 12/19/24 10:06 10 ML Acetaminophen 325 mg Q6HP PRN HI 12/17/24 06:45 Epoetin Tonio-epbx 10,000 unit 2XW SC 12/17/24 12:00 Norepinephrine Bitartrate 250 ml @ 0.938 mls/ hr Q24H IV 12/18/24 06:30 Octreotide Acetate 100 mcg TID SUBCUT 12/18/24 14:00 12/19/24 06:25 100 MCG Dopamine HCl/ Dextrose 250 ml @ 6.413 mls/ hr Q24H IV 12/18/24 09:45 12/18/24 09:53 6.413 MLS/HR Citalopram Hydrobromide 10 mg DAILY PO 12/20/24 10:00 Examination: LUNGS:Normal, CVS:Normal, MSK:Abnormal laboratory and microbiology Laboratory Tests 12/19/24 04:50 Test 12/19/24 04:50 Range/Units Serum Glucose 185 H 74-106 mg/dL Microbiology Date/Time Source Procedure Growth Status 12/12/24 13:20 Stool Stool Culture - Final Complete 12/12/24 13:20 Stool Shiga Toxin I & II - Final Complete 12/11/24 15:31 Sputum Gram Stain - Final Complete 12/11/24 15:31 Sputum Respiratory Culture - Final Complete 12/10/24 10:17 Sacrum Gram Stain - Final Complete 12/10/24 10:17 Wound Culture - Final Enterococcus faecalis Presumptive Halima albicans Complete 12/10/24 10:17 Voided Urine Urine Culture - Final Complete 12/08/24 14:39 Blood Blood Culture - Final NO GROWTH AFTER 5 DAYS OF INCUBATION. 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 hemodialysis s/p BM biopsy pending results and Lymph node biopsy showing Hodgkin's lymphoma s/p tunneled catheter for dialysis Low-dose dopamine Octreotide visitor services specialist for chair time with [facility] dialysis IV Levophed for blood pressure support We will continue to follow up Plan discussed with: Spouse, Other (Nurse) Dietary Evaluation Review Comments: 1) Ergocalciferol 50,000IU weekly 2) Jose L 1 pk daily, MVI w/ mineral 1 tab, Vit C 500mg BID, Zinc sulfate 220mg daily x 10 days 3) Advance to [id number] + renal special 80gm protein diet 4) Continue current plan of care Expected Outcomes/Goals: Advance diet to meet at least 75% estimated needs FU 2-3 days CC Plasma Assessment Blood Product Administration S: 11:05 RITA SANDS MD Dec 19, 2024 11:57
[2024-12-19] MEDS ORDERED: HYDROMORPHONE HCL 1 MG/ML INJ IV ONE (14:15)
--- NOTE | 2024-12-19 15:16 | DVHPN2 ---
Progress Note Date Seen: Dec 19, 2024 Has the PT tested + for MRSA If YES, has PT been informed?: No Medical Necessity Reason Pt with a Central, PICC or Fol: Yes The following are medically ne: Pond Catheter Reason for pond catheter: Bladder Retention/Obstruc, Strict I&O Objective vital signs Vital Sign Date Time Temp Pulse Resp B/P (MAP) Pulse Ox O2 Delivery O2 Flow Rate FiO2 12/19/24 14:45 81 15 135/71 (92) 98 12/19/24 14:00 Nasal Cannula* 2 28 12/19/24 13:30 99.2 99.2 Total Intake and Output 12/18/24 12/18/24 12/19/24 15:00 23:00 07:00 Intake Total 147.856 ml 161.704 ml 237.304 ml Output Total 5 ml 25 ml Balance 147.856 ml 156.704 ml 212.304 ml medications Current Medications Medications Dose Ordered Sig/Shavon Route Start Time Stop Time Status Last Admin Dose Admin Acetaminophen 650 mg Q6HP PRN PO 12/04/24 03:30 12/18/24 18:46 650 MG Ondansetron HCl 4 mg Q4HP PRN IV 12/04/24 03:30 Diagnostic Test (Pha) 1 strip ACHS 12/04/24 07:00 12/19/24 11:36 1 STRIP Pantoprazole Sodium 40 mg BID IV 12/04/24 06:45 12/19/24 10:28 40 MG Calcium Acetate 1,334 mg TIDWMEALS PO 12/08/24 12:00 12/16/24 12:11 1,334 MG Micafungin Sodium 100 mg/Sodium Chloride 100 ml @ 100 mls/hr DAILY IV 12/10/24 10:00 12/19/24 10:28 100 MLS/HR Gabapentin 200 mg HS PO 12/10/24 22:00 12/18/24 21:53 200 MG Nystatin 5 ml QID MT 12/10/24 16:00 12/16/24 12:11 5 ML Daptomycin 0 ml @ 0 mls/hr PER PHARMACY IV 12/10/24 20:30 Daptomycin 500 mg/ Sodium Chloride 50 ml @ 100 mls/hr Q48H IV 12/11/24 15:00 12/19/24 14:29 100 MLS/HR Multivit/Ca Carb/ B Cmplx/FA/Prenat 1 tab DAILY PO 12/12/24 10:00 12/16/24 09:37 1 TAB Enteral Nutritional Formula 27.5 gm DAILY PO 12/12/24 10:00 12/14/24 09:26 27.5 GM Ergocalciferol 50,000 unit Q7D PO 12/12/24 08:45 12/12/24 09:38 50,000 UNIT Enteral Nutritional Formula 240 ml BIDWM PO 12/13/24 08:00 12/17/24 08:21 240 ML Cefepime HCl 50 ml @ 12.5 mls/hr DAILY@2200 IV 12/14/24 22:00 12/18/24 21:52 12.5 MLS/HR Midodrine 15 mg TID@0600,1200,1800 PO 12/15/24 12:00 12/19/24 06:25 15 MG Sodium Chloride 10 ml QSHIFT@10,22 IV 12/16/24 22:00 12/19/24 10:06 10 ML Acetaminophen 325 mg Q6HP PRN MT 12/17/24 06:45 Epoetin Tonio-epbx 10,000 unit 2XW SC 12/17/24 12:00 Norepinephrine Bitartrate 250 ml @ 0.938 mls/ hr Q24H IV 12/18/24 06:30 Octreotide Acetate 100 mcg TID SUBCUT 12/18/24 14:00 12/19/24 13:38 100 MCG Dopamine HCl/ Dextrose 250 ml @ 6.413 mls/ hr Q24H IV 12/18/24 09:45 12/18/24 09:53 6.413 MLS/HR Citalopram Hydrobromide 10 mg DAILY PO 12/20/24 10:00 laboratory and microbiology Laboratory Tests 12/19/24 04:50 Test 12/19/24 04:50 Range/Units Serum Glucose 185 H 74-106 mg/dL Microbiology Date/Time Source Procedure Growth Status 12/12/24 13:20 Stool Stool Culture - Final Complete 12/12/24 13:20 Stool Shiga Toxin I & II - Final Complete 12/11/24 15:31 Sputum Gram Stain - Final Complete 12/11/24 15:31 Sputum Respiratory Culture - Final Complete 12/10/24 10:17 Sacrum Gram Stain - Final Complete 12/10/24 10:17 Wound Culture - Final Enterococcus faecalis Presumptive Halima albicans Complete 12/10/24 10:17 Voided Urine Urine Culture - Final Complete 12/08/24 14:39 Blood Blood Culture - Final NO GROWTH AFTER 5 DAYS OF INCUBATION. Complete Problem List/Assessment/Plan Problem List/Assessment/Plan AFEBRILE VSS LOW ACK WOUND NON HEALING WITH NECROSIS IN DIALYSIS TODAY CONSIDER TISSUE DEBRIDEMENT LOW BACK WOUND AM Plan discussed with: Other My Orders My Orders Orders - SPEEDY DOYLE MD Procedure Category Date Status Time Npo After Midnight ORDERS 12/19/24 Transmitted Npo (Nothing By DIET 12/20/24 Transmitted Mouth) Diet Breakfast Obtain Consent For: ORDERS 12/19/24 Transmitted 15:13 Dietary Evaluation Review Comments: 1) Ergocalciferol 50,000IU weekly 2) Jose L 1 pk daily, MVI w/ mineral 1 tab, Vit C 500mg BID, Zinc sulfate 220mg daily x 10 days 3) Advance to [id number] + renal special 80gm protein diet 4) Continue current plan of care Expected Outcomes/Goals: Advance diet to meet at least 75% estimated needs FU 2-3 days CC Plasma Assessment Blood Product Administration S: 11:05 SPEEDY DOYLE MD Dec 19, 2024 15:16
[2024-12-19] MEDS: HYDROmorphone HCL 2 MG/ML VL/or syr IV ONE (18:00)
--- NOTE | 2024-12-19 20:16 | DVHPN2 ---
Progress Note - Dictate Date Seen: Dec 19, 2024 Has the PT tested + for MRSA If YES, has PT been informed?: No Medical Necessity Reason Pt with a Central, PICC or Fol: Yes The following are medically ne: Pond Catheter Reason for pond catheter: Bladder Retention/Obstruc, Strict I&O Subjective Patient seen and examined at bedside. Remains on supplemental oxygen Overnight events reviewed. vital signs Vital Sign Date Time Temp Pulse Resp B/P (MAP) Pulse Ox O2 Delivery O2 Flow Rate FiO2 12/19/24 19:53 132/70 12/19/24 19:00 88 13 98 12/19/24 18:00 Nasal Cannula* 2 28 12/19/24 17:30 98.1 98.1 Total Intake and Output 12/18/24 12/18/24 12/19/24 15:00 23:00 07:00 Intake Total 147.856 ml 161.704 ml 237.304 ml Output Total 5 ml 25 ml Balance 147.856 ml 156.704 ml 212.304 ml medications Current Medications Medications Dose Ordered Sig/Shavon Route Start Time Stop Time Status Last Admin Dose Admin Acetaminophen 650 mg Q6HP PRN PO 12/04/24 03:30 12/18/24 18:46 650 MG Ondansetron HCl 4 mg Q4HP PRN IV 12/04/24 03:30 Diagnostic Test (Pha) 1 strip ACHS 12/04/24 07:00 12/19/24 17:00 1 STRIP Pantoprazole Sodium 40 mg BID IV 12/04/24 06:45 12/19/24 10:28 40 MG Calcium Acetate 1,334 mg TIDWMEALS PO 12/08/24 12:00 12/16/24 12:11 1,334 MG Micafungin Sodium 100 mg/Sodium Chloride 100 ml @ 100 mls/hr DAILY IV 12/10/24 10:00 12/19/24 10:28 100 MLS/HR Gabapentin 200 mg HS PO 12/10/24 22:00 12/18/24 21:53 200 MG Nystatin 5 ml QID MT 12/10/24 16:00 12/16/24 12:11 5 ML Daptomycin 0 ml @ 0 mls/hr PER PHARMACY IV 12/10/24 20:30 Daptomycin 500 mg/ Sodium Chloride 50 ml @ 100 mls/hr Q48H IV 12/11/24 15:00 12/19/24 14:29 100 MLS/HR Multivit/Ca Carb/ B Cmplx/FA/Prenat 1 tab DAILY PO 12/12/24 10:00 12/16/24 09:37 1 TAB Enteral Nutritional Formula 27.5 gm DAILY PO 12/12/24 10:00 12/14/24 09:26 27.5 GM Ergocalciferol 50,000 unit Q7D PO 12/12/24 08:45 12/12/24 09:38 50,000 UNIT Enteral Nutritional Formula 240 ml BIDWM PO 12/13/24 08:00 12/17/24 08:21 240 ML Cefepime HCl 50 ml @ 12.5 mls/hr DAILY@2200 IV 12/14/24 22:00 12/18/24 21:52 12.5 MLS/HR Midodrine 15 mg TID@0600,1200,1800 PO 12/15/24 12:00 12/19/24 06:25 15 MG Sodium Chloride 10 ml QSHIFT@10,22 IV 12/16/24 22:00 12/19/24 10:06 10 ML Acetaminophen 325 mg Q6HP PRN [place] 12/17/24 06:45 Epoetin Tonio-epbx 10,000 unit 2XW SC 12/17/24 12:00 Norepinephrine Bitartrate 250 ml @ 0.938 mls/ hr Q24H IV 12/18/24 06:30 Octreotide Acetate 100 mcg TID SUBCUT 12/18/24 14:00 12/19/24 13:38 100 MCG Dopamine HCl/ Dextrose 250 ml @ 6.413 mls/ hr Q24H IV 12/18/24 09:45 12/19/24 19:53 6.413 MLS/HR Citalopram Hydrobromide 10 mg DAILY PO 12/20/24 10:00 objective Gen.: Patient lying in bed in no apparent distress. On supplemental oxygen. Head: Normocephalic, atraumatic. Eyes: EOMI/PERRLA. Ears: Normal hearing. Normal anatomy. Neck/trachea: Trachea midline, supple. Nose: Normal external anatomy. Mouth: Moist mucous membranes. Chest: Decreased air entry bilaterally. No wheezing or rhonchi. Cardiovascular: Positive S1, positive S2. Regular rate and rhythm. Abdomen: Positive bowel sounds in all 4 quadrants. Soft, non-tender, non- distended. : Deferred. Rectal: Deferred. Skin: Warm, dry. Intact. Extremities: 2+ radial pulses bilaterally. No lower extremity edema. Neuro: Awake, alert, oriented x3. No gross motor or sensory deficits. Cranial nerves II through XII intact. Gait not assessed. laboratory and microbiology Laboratory Tests 12/19/24 04:50 Test 12/19/24 04:50 Range/Units Serum Glucose 185 H 74-106 mg/dL Assessment/Plan Impression: Acute hypoxic respiratory failure Dependence on supplemental oxygen Possible urinary tract infection CAD, s/p 3-vessel CABG. Septic shock Cerebrovascular accident Left pleural effusion Atelectasis Events: Remains on supplemental oxygen, 2 LPM NC Taper O2 as tolerated No distress. Hemodialysis per Nephrology Hodgkin's lymphoma - awaiting bone marrow biopsy results. Swallow eval. Pressors for hemodynamic support On dopamine at 2 mcg, renally dosed. Titrate to keep mean arterial pressure greater than 65 mmHg. Remains off Levophed Monitor blood pressure WBC trending down at 14.0 Hemodialysis per Nephrology Requiring Levophed during dialysis Monitor renal function. Monitor electrolytes. Supplement as necessary. Nephrology recommendations appreciated Head of bed elevation Aspiration precautions Pain control Avoid oversedation Continue antibiotics Continue antifungal Incentive spirometry Continue PT/OT Accu-Cheks Protonix BID Monitor hemoglobin Monitor platelets d/t thrombocytopenia Wound care Plan for hospice evaluation Labs and imaging reviewed. Rest of plan as noted below. Plan: Supplemental oxygen Titrate to keep O2 sats above 92%. Pressors as necessary for hemodynamic support Titrate to keep mean arterial pressure greater than 65 mmHg. Echocardiogram reviewed, notable for EF 50% Cardiology recs appreciated. Continue antibiotics Continue antifungal Incentive spirometry Accu-Cheks, ISS PRN. Monitor renal function. Monitor electrolytes. Supplement as necessary. Monitor ins and outs. Pond for strict ins and outs Plan for hospice evaluation. DVT prophylaxis. Prognosis: Poor given patient's multiple co-morbidities. Condition: Critical Rest of plan per hospitalist and other consultants. A total of 35 minutes of critical care time was spent reviewing the patient record, examining the patient, making a diagnostic and therapeutic plan, discussing this plan with the medical personnel, following up on diagnostic studies and following the patient for clinical stability excluding any and all procedures. At least 50% of this time was spent in direct, [id number] contact. Thank you, Dr. Smith, for allowing me to participate in this patient's care. Further recommendations will depend on the patient's clinical course. Please do not hesitate to contact me if you have any questions or concerns. This medical document was created using an electronic medical record system with [employer] dictation system. Although these documentations are being carefully reviewed, there may still be some phonetic and typographical changes. The errors are purely typographical, due to imperfection on the software program, and do not reflect any compromise in the patient's medical care. Dietary Evaluation Review Comments: 1) Ergocalciferol 50,000IU weekly 2) Jose L 1 pk daily, MVI w/ mineral 1 tab, Vit C 500mg BID, Zinc sulfate 220mg daily x 10 days 3) Advance to TUID11ol + renal special 80gm protein diet 4) Continue current plan of care Expected Outcomes/Goals: Advance diet to meet at least 75% estimated needs FU 2-3 days Plan discussed with: Patient, Other (VIJAY Buckner) Critical Care Time(min): 35 CC Plasma Assessment Blood Product Administration S: 11:05 JERAMY CAMARA MD Dec 19, 2024 20:16
[2024-12-19] MEDS: EPOETIN ALFA-EPBX 10,000 UNIT/1ML VIAL SC ONE (22:22)
[2024-12-20] VITALS (82 sets, daily range): BP systolic 97–136; BP diastolic 47–75; PULSE 80–90; RESP 11–22; TEMP 98.5–100.4; O2SAT 77–100
[2024-12-20 05:32] LABS: Hemoglobin 7.5 g/dL (13.5-17.5); Mean Corpuscular Volume 81.4 fL (80.0-100.0); White Blood Cell 12.4 10^3/uL (4.4-10.8)
[2024-12-20 05:34] LABS: Mean Corpuscular Hemoglobin 27.9 pg (28.0-32.0); Mean Corpuscular Hgb Conc. 34.2 g/dL (32.0-36.0); Platelet Count (auto) 72 10^3/uL (140-450); Red Blood Cells 2.71 10^6/uL (4.5-5.90)
[2024-12-20 05:45] LABS: INR 1.78 (0.9-1.15); Partial Thromboplastin Time 56.9 SEC (24.5-34.5); Prothrombin Time 17.8 sec (9.3-11.8)
[2024-12-20 05:47] LABS: Alanine Aminotransferase 31 U/L (7-40); Anion Gap 12 (5-15); Carbon Dioxide 24 mmol/L (20-31); Potassium 4.2 mmol/L (3.5-5.1)
[2024-12-20 05:50] LABS: BUN/Creatinine Ratio 14.3 (10.0-20.0)
[2024-12-20 05:52] LABS: Basophils % (manual) 0 (0.0-2.0); Blast Cells 0; Eosinophils % (manual) 0 (0-7); Metamyelocytes % 0; Myelocytes % 0; Promyelocytes % 0; Reactive Lymphocytes 0
[2024-12-20 06:03] LABS: Alkaline Phosphatase 702 U/L (46-116); Aspartate Aminotransferase 56 U/L (13-40); Bilirubin, Total 16.7 mg/dL (0.2-1.0); Blood Urea Nitrogen 64 mg/dL (9-23); Calcium 7.6 mg/dL (8.7-10.4); Chloride 97 mmol/L (98-107); Glucose 117 mg/dL (74-106); Sodium 133 mmol/L (136-145); Total Protein 5.4 g/dL (5.7-8.2)
[2024-12-20 06:52] LABS: Band Neutrophils % (manual) 1; Giant Platelets Few; Large Platelets FEW; Lymphocytes % (manual) 3 (10.0-50.0); Monocytes % (manual) 4 (0-12); Platelet Estimate Decreased
[2024-12-20 06:53] LABS: Anisocytosis Slight; Target Cell FEW
[2024-12-20 06:54] LABS: Ovalocytes FEW; Stomatocytes Few
--- NOTE | 2024-12-20 07:56 | ECG ---
[facility] Test Date: 2024-12-17 Test Time: 15:16:53 Pat Name: HEAVEN ALANIS Department: Respiratoy Room: 0262 A Gender: M Mangle Feeder: : 1965 Requested By: KAMILLE ARCHULETA Order Number: [id number] Reading MD: Brad Sutton Measurements Intervals Campbell Rate: 138 P: 52 ND: 164 QRS: 15 QRSD: 89 T: 85 QT: 266 QTc: 403 Interpretive Statements Sinus tachycardia Electronically Signed On 12-20-2024 20:23:27 PDT by Brad Stuton Please click the below link to view image of tracing.
--- NOTE | 2024-12-20 08:22 | DVH ---
EXAM: XY CHEST PORTABLE Indication: Pain Technique: Single frontal view of the chest was obtained Comparison: XY CHEST XRAY 1 VIEW on DOS: 12/12/24, XY CHEST XRAY 1 VIEW on DOS: 11/02/24, XY CHEST XRAY 1 VIEW on DOS: 10/17/24, XY CHEST PORTABLE on DOS: 10/14/24 FINDINGS: Lines and Tubes: Right internal jugular central venous catheter tip projects over the cavoatrial junc tion. Left PICC tip projects over the superior vena cava.. Lungs: Pulmonary edema. Bibasilar opacities. Artifact limits evaluation of the right and left upper t horax. Pleura: Possible trace left pleural effusion. No pneumothorax. Cardiomediastinal contours: Cardiomegaly. Bones: No acute osseous abnormality. IMPRESSION: Cardiomegaly with pulmonary edema and bibasilar opacities. Possible trace left pleural effusion. Amaris vation of the right hemidiaphragm with low lung volumes.
[2024-12-20] MEDS: CITALOPRAM HYDROBR 20 MG TAB PO SCH (08:53)
--- NOTE | 2024-12-20 09:03 | DVHPNRES ---
Progress Note Date Seen: Dec 20, 2024 Resident Creating Document: KAMILLE VÁSQUEZ RESIDENT Has the PT tested + for MRSA If YES, has PT been informed?: No Medical Necessity Reason Pt with a Central, PICC or Fol: Yes The following are medically ne: Pond Catheter Reason for pond catheter: Bladder Retention/Obstruc, Strict I&O Subjective Review of Systems Mr. Goss is a 59-year-old male with a past medical history of coronary artery disease status post CABG in October 2024, ischemic stroke oct 2024, status post bed bound and chronic indwelling Pond, hypertension, and hyperlipidemia. He was brought to the ER by the family with a chief complaint of heavy breathing, fever, chills, and anuria for the past 3 days. Per the daughter at bedside, the patient had never followed up with urology or cardiology after he was discharged from this facility on 11/07/24. He usually makes 1600 cc of urine a day. Per daughter, patient has a wound in his back and is also draining a white pus-like substance. Patient also reported dysuria and abdominal discomfort. He also reports heavy breathing and mild nonproductive cough. On arrival, patient was febrile at 101.2F, tachycardic, blood pressure 144/77, and requiring 4 L oxygen supplementation. White cell count was 3.6, hemoglobin 8.8, and hematocrit 23. Patient had hyperkalemia, potassium was 6 which downtrended to 5.4. Creatinine was 2.9 and BUN 77. Patient's Pond catheter was removed in ED after being in place for more than a month, the patient does not urinate on his own, bladder scan showed empty bladder, nephrology was consulted. Chest x-ray shows bibasilar consolidation. The patient has mildly elevated transaminases. 12/05/[address] findings of substernal soft tissue density: new echo ordered, azithromycin was added to cover atypicals and hyperkalemia protocol was done, patient is having febrile neutropenia, CT scan of abdomen showed right groin lymphadenopathy, lymphadenopathy biopsy was done. 1 RBC was transfused per cardiology. 12/06/24 at 5:30 pm, patient had an episode of AMS, weakness, and hypotension, increased left leg weakness and left facial droop. CT scan negative for stroke or hemorrhage, patient was placed on Levophed and weaned off at 8 pm, fluids IV 100 cc during the night, today x-ray showed mild congestion. IV fluids reduced to 60cc and furosemide IV was started. New MRI showed multiple small strokes in different places; probably cardiembolic etiology. Neurology Dr. Cabral, stated no need for CTA or thrombectomy, also transfer to [facility] was planned but according to the center he had his CABG, patient can be managed in [facility]. Also, nephrology consulted. 12/07/24: EMILY was ordered and will be done today. Worsening renal function; nephrology will discuss possible hemodialysis with the patient and his family. 12/08/24: EMILY negative, neupogen started, patient had fever last night, new pancultures, renal function is trending high, dialysis catheter placed on the left, new K normal on place, possible HD today. 12/10/24: Stop plavix, patient continues to have fevers, cultures prelim negative, pending bone marrow biopsy. 12/11/24: ID was consulted, vancomycin was changed for daptomycin, further studies were ordered to study possible source of infection, WBC is trending high, last fever 12/10 4pm, HD was done but patient needed levophed 2mcg, bilirubin is trending high, EPO was started by Nephro 12/12/24: lymph node biopsy: Hodgkin lymphoma, diagnosis disccused with family, patient still having fevers and diarrhea, necrotic ulcer assessed by dr Jacinto no need of intervention. 12/13/24: wbc is trending high, 6 episodes of diarrhea, today we are going to continue with metamucil and start midodrine, pending HD 12/17/24: WBC is trending high, DC filgastrim, patient still having fevers, less episodes of diarrhea, on and off levophed, after HD the idea is to DC levophed, keep MAP > 60 no 65 12/18/24: wbc is stable, patient still having fevers, levophed was up 1 mcg, MRI ordered by neurology didn't show acute changes, case extensively discussed with the , explaining her about the poor prognosis and the hospice option 12/19/24: patient still having fevers, the sacral wound looks more necrotic than before, Dr Jacinto will take the patient to [facility] tomorrow am, off levophed, still on dopamine drip, today dialysis, patient is depressed, telepsych consult, start citalopram 12/20/24: wbc is getting to normal levels, low grade fevers, possible surgery at noon, dialysis yesterday, dopamine drip 2 mcg, patient still apathetic, pending telepsych consult, ng tube placed, start tube feedings Mr. Goss is a 59-year-old male with CAD s/p CABG, stroke, and CKD who presented with fever, AMS, and anuria. Workup revealed febrile neutropenia, acute renal failure requiring dialysis, and later diagnosed Hodgkin lymphoma. He developed multiple complications including cardiogenic strokes, persistent fevers, diarrhea, and sacral necrosis. Despite treatment, he still, intermittently requiring vasopressors. Prognosis is poor and hospice discussions have started with the family . Objective vital signs Vital Sign Date Time Temp Pulse Resp B/P (MAP) Pulse Ox O2 Delivery O2 Flow Rate FiO2 12/20/24 08:15 83 15 123/62 (82) 99 12/20/24 08:00 Nasal Cannula* 3 32 12/20/24 08:00 99.4 99.4 Total Intake and Output 12/19/24 12/19/24 12/20/24 15:00 23:00 07:00 Intake Total 51.304 ml 19.239 ml 6.413 ml Output Total 50 ml 50 ml Balance 51.304 ml -30.761 ml -43.587 ml medications Current Medications Medications Dose Ordered Sig/Shavon Route Start Time Stop Time Status Last Admin Dose Admin Acetaminophen 650 mg Q6HP PRN PO 12/04/24 03:30 12/18/24 18:46 650 MG Ondansetron HCl 4 mg Q4HP PRN IV 12/04/24 03:30 Diagnostic Test (Pha) 1 strip ACHS 12/04/24 07:00 12/20/24 06:25 1 STRIP Pantoprazole Sodium 40 mg BID IV 12/04/24 06:45 12/19/24 22:20 40 MG Calcium Acetate 1,334 mg TIDWMEALS PO 12/08/24 12:00 12/16/24 12:11 1,334 MG Micafungin Sodium 100 mg/Sodium Chloride 100 ml @ 100 mls/hr DAILY IV 12/10/24 10:00 12/19/24 10:28 100 MLS/HR Gabapentin 200 mg HS PO 12/10/24 22:00 12/18/24 21:53 200 MG Nystatin 5 ml QID MT 12/10/24 16:00 12/16/24 12:11 5 ML Daptomycin 0 ml @ 0 mls/hr PER PHARMACY IV 12/10/24 20:30 Daptomycin 500 mg/ Sodium Chloride 50 ml @ 100 mls/hr Q48H IV 12/11/24 15:00 12/19/24 14:29 100 MLS/HR Multivit/Ca Carb/ B Cmplx/FA/Prenat 1 tab DAILY PO 12/12/24 10:00 12/16/24 09:37 1 TAB Enteral Nutritional Formula 27.5 gm DAILY PO 12/12/24 10:00 12/14/24 09:26 27.5 GM Ergocalciferol 50,000 unit Q7D PO 12/12/24 08:45 12/12/24 09:38 50,000 UNIT Enteral Nutritional Formula 240 ml BIDWM PO 12/13/24 08:00 12/17/24 08:21 240 ML Cefepime HCl 50 ml @ 12.5 mls/hr DAILY@2200 IV 12/14/24 22:00 12/19/24 22:00 12.5 MLS/HR Midodrine 15 mg TID@0600,1200,1800 PO 12/15/24 12:00 12/19/24 06:25 15 MG Sodium Chloride 10 ml QSHIFT@10,22 IV 12/16/24 22:00 12/19/24 22:24 10 ML Acetaminophen 325 mg Q6HP PRN [place] 12/17/24 06:45 Epoetin Tonio-epbx 10,000 unit 2XW SC 12/17/24 12:00 Norepinephrine Bitartrate 250 ml @ 0.938 mls/ hr Q24H IV 12/18/24 06:30 Octreotide Acetate 100 mcg TID SUBCUT 12/18/24 14:00 12/20/24 06:25 100 MCG Dopamine HCl/ Dextrose 250 ml @ 6.413 mls/ hr Q24H IV 12/18/24 09:45 12/19/24 19:53 6.413 MLS/HR Citalopram Hydrobromide 10 mg DAILY PO 12/20/24 10:00 Examination General: Afebrile, icteric, mucosae are moist Cardiovascular: sternal wound clean, sternum stable, regular S1 and S2. No murmurs, gallops or rubs. No JVD elevation. No pedal edema. HD cath placed Respiratory: Normal B/L air entry on 2 L NC. Clear lung sounds on auscultation Abdomen: Soft, nontender, nondistended, normoactive bowel sounds, no rebound tenderness, no organomegaly, no masses. Neurological: Residual left lower extremity weakness.. Pupils are isocoric and reactive. Psych/Mental Status: apathy Patient has a sacral decubitus ulcer, necrotic laboratory and microbiology Laboratory Tests 12/20/24 04:56 Test 12/20/24 04:56 Range/Units Serum Glucose 117 H 74-106 mg/dL Microbiology Date/Time Source Procedure Growth Status 12/12/24 13:20 Stool Stool Culture - Final Complete 12/12/24 13:20 Stool Shiga Toxin I & II - Final Complete 12/11/24 15:31 Sputum Gram Stain - Final Complete 12/11/24 15:31 Sputum Respiratory Culture - Final Complete 12/10/24 10:17 Sacrum Gram Stain - Final Complete 12/10/24 10:17 Wound Culture - Final Enterococcus faecalis Presumptive Halima albicans Complete 12/10/24 10:17 Voided Urine Urine Culture - Final Complete 12/08/24 14:39 Blood Blood Culture - Final NO GROWTH AFTER 5 DAYS OF INCUBATION. Complete Problem List/Assessment/Plan Problem List/Assessment/Plan Hematology #Hodgkin Lymphoma #Pancitopenia resolved #neutropenia resolved #Retroperitoneal lymphadenopathy #Normochromic and normocytic Anemia multifactorial: rule out neoplasm, CKD #Thrombocytopenia Lymph node biopsy done: Hodgkin Lymphoma Check hepatitis panel NOLBERTO double-stranded DNA CMV Christine-Deshpande virus, protein electrophoresis: Igg for CMV and EBV positive 2RBC given FOB negative Booth Cashier on board [facility] Dr Pastor stated that the patient will need chemotherapy when he is stable as outpatient Patient still having fevers BM aspiration: myeloid dysmaturation without overt increase in blasts, monocytes 32% Neurology #Acute metabolic/hypoxic encephalopathy due to stroke and sepsis #Possible acute cardioembolic stroke: corpus callosum, bilateral frontal and right parietal #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 There is no evidence of acute hemorrhage. There is no mass effect. There are additional scattered punctate foci of restricted diffusion in the bilateral frontal and right parietal lobe deep white matter which may represent tiny foci of acute to subacute infarcts. Bran MRI oct 2024: There prominent diffusion restriction also seen within the genu and anterior body of the corpus callosum. There is an apparent punctate additional focus of diffusion restriction in the medulla Neurology on board Aspirin continue Continue atorvastatin 40 mg EMILY normal Carotid duplex: No hemodynamically significant stenosis within the carotid arteries Pregabalin trial per neuro Need of PT apathy, continue citalopram, pending telepsych consult Cardiology #Severe coronary artery disease status post triple-vessel CABG #Substernal soft tissue density likely secondary to recent CABG #Possible acute on Chronic HFpEF, NYHA class III Cardiology signed off 12/05/24 ECHO: Left atrial enlargement with dilation of the sinuses of Valsalva. Mild RV enlargement. Moderate aortic sclerosis with diminished excursion of the leaflets and calcification of what appears to be the right and non coronary cusps. Left ventricular function appears preserved. EF of about 50% with normal RV function. The tricuspid is normal. Doppler reveals some mild to moderate TR. No pericardial effusion masses or vegetations. 12/04/24: Substernal soft tissue density and stranding without a large fluid collection. Fat stranding is nonspecific and should be correlated with timing of surgery. Alternatively this could reflect an infectious or inflammatory etiology. Small bilateral pleural effusions and passive atelectasis. Cardiomegaly. Aspirin continue Continue atorvastatin 40 mg Hold on other GDMT: GOPAL and shock HD Levophed off dopamine drip Albumin IV given Midodrine Pulmonology #Septic shock due to possible pneumonia #Acute respiratory failure #PNA gram+/gram- #Small bilateral pleural effusions #Passive atelectasis #Mixed base disorder: respiratory alkalosis and metabolic acidosis Comp Field Case Manager and critical care on board Cefepime + Micafungin MRSA nares negative O2 2LT GI #Transaminitis secondary to chronic liver disease #Gallbladder polyps #Hyperbilirubinemia #Questionable typhlitis #Diarrhea in immunocompromised patoent Coarsened liver echotexture suggestive of chronic liver disease. Trace ascites. Partially visualized trace right pleural effusion. Gallbladder polyps measuring up to 0.4 cm FOB negative MRCP negative for acute pathology GGT high, AP high, bilirubins are trending high NG tube placed please start enteral feedings Renal #GOPAL due to septic shock #ESRD #Dialysis urgency #Severe fluid overload #Hyperkalemia secondary to CKD #Hyperparathyroidism #Mixed base disorder: respiratory alkalosis and metabolic acidosis #Chronic indwelling Pond Urine culture came negative Screen Print Operator on board EPO, dopamine drip and octeotride per nephro Infectious #Febrile neutropenia #Septic shock due to possible pneumonia? #Possible septic emboli? #sacral wound #Rule out opportunistic infections #Possible tiflitis #s/p debridement of sacral wound EMILY neg Daptomycin + Cefepime + Micafungin Patient had a sacral wound, cultures ordered: prelim yeast and gram + Multiple studies ordered to rule out opportunistic infection on severe immunocompromised patient Debridement today without complications Endocrinology #Hypoglycemia #Prediabetes Diabetic diet Stop insulin Cortisol AM: normal 12/19/24: patient still having fevers, the sacral wound looks more necrotic than before, Dr Jacnito will take the patient to [facility] tomorrow am, off levophed, still on dopamine drip, today dialysis, patient is depressed, telepsych consult, start citalopram Case discussed with Dr Salas Plan discussed with: Patient, Other (rn) My Orders My Orders Orders - KAMILLE VÁSQUEZ Procedure Category Date Status Time *Tele Psych Consult CONS 12/19/24 Transmitted 10:35 Citalopram Tablet PHA 12/20/24 In Process (Celexa Tablet) 10:00 * Swallow Request ST 12/19/24 Transmitted 10:35 Npo (Nothing By DIET 12/19/24 Transmitted Mouth) Diet Dinner Chest Portable XY 12/20/24 Resulted 04:00 Dietary Evaluation Review Comments: 1) Ergocalciferol 50,000IU weekly 2) Jose L 1 pk daily, MVI w/ mineral 1 tab, Vit C 500mg BID, Zinc sulfate 220mg daily x 10 days 3) Advance to [id number] + renal special 80gm protein diet 4) Continue current plan of care Expected Outcomes/Goals: Advance diet to meet at least 75% estimated needs FU 2-3 days CC Plasma Assessment Blood Product Administration S: 11:05 Date of Service: Dec 20, 2024 Billing Provider: RADHA SALAS MD Common Visit Codes: [id number] CARE 30-74 MIN KAMILLE VÁSQUEZ RESIDENT Dec 20, 2024 09:03 RADHA SALAS MD Dec 25, 2024 21:24
[2024-12-20] MEDS ORDERED: GLYCOPYRROLATE 0.2 MG/ML 1ML VIAL ONE (10:11)
[2024-12-20] MEDS ORDERED: KETOROLAC TROMETH 30 MG/ML 1ML VIAL ONE (10:11)
[2024-12-20] MEDS ORDERED: LIDOCAINE 1% INJ PF 5ML AMP ONE (10:11)
[2024-12-20] MEDS ORDERED: PROPOFOL 10 MG/ML 20 ML IV ONE (10:11)
[2024-12-20] MEDS ORDERED: DexAMETHasone SOD PHOS 10MG/1ML VIAL INJ ONE (10:11)
[2024-12-20] MEDS ORDERED: ONDANSETRON HCL 4 MG/2 ML VIAL ONE (10:11)
[2024-12-20] MEDS ORDERED: KETAMINE 50mg/ML 1ml syringe ONE (10:12)
--- NOTE | 2024-12-20 10:17 | DVHPN2 ---
Progress Note Date Seen: Dec 20, 2024 Has the PT tested + for MRSA If YES, has PT been informed?: No Medical Necessity Reason Pt with a Central, PICC or Fol: Yes The following are medically ne: Pond Catheter Reason for pond catheter: Bladder Retention/Obstruc, Strict I&O Subjective Patient reports: No new complaints Other Systems: Patient seen and examined by myself today in follow-up, at the bedside Objective vital signs Vital Sign Date Time Temp Pulse Resp B/P (MAP) Pulse Ox O2 Delivery O2 Flow Rate FiO2 12/20/24 08:15 83 15 123/62 (82) 99 12/20/24 08:00 Nasal Cannula* 3 32 12/20/24 08:00 99.4 99.4 Total Intake and Output 12/19/24 12/19/24 12/20/24 15:00 23:00 07:00 Intake Total 51.304 ml 19.239 ml 6.413 ml Output Total 50 ml 50 ml Balance 51.304 ml -30.761 ml -43.587 ml medications Current Medications Medications Dose Ordered Sig/Shavon Route Start Time Stop Time Status Last Admin Dose Admin Acetaminophen 650 mg Q6HP PRN PO 12/04/24 03:30 12/18/24 18:46 650 MG Ondansetron HCl 4 mg Q4HP PRN IV 12/04/24 03:30 Diagnostic Test (Pha) 1 strip ACHS 12/04/24 07:00 12/20/24 06:25 1 STRIP Pantoprazole Sodium 40 mg BID IV 12/04/24 06:45 12/20/24 09:31 40 MG Calcium Acetate 1,334 mg TIDWMEALS PO 12/08/24 12:00 12/16/24 12:11 1,334 MG Micafungin Sodium 100 mg/Sodium Chloride 100 ml @ 100 mls/hr DAILY IV 12/10/24 10:00 12/20/24 09:31 100 MLS/HR Gabapentin 200 mg HS PO 12/10/24 22:00 12/18/24 21:53 200 MG Nystatin 5 ml QID MT 12/10/24 16:00 12/16/24 12:11 5 ML Daptomycin 0 ml @ 0 mls/hr PER PHARMACY IV 12/10/24 20:30 Daptomycin 500 mg/ Sodium Chloride 50 ml @ 100 mls/hr Q48H IV 12/11/24 15:00 12/19/24 14:29 100 MLS/HR Multivit/Ca Carb/ B Cmplx/FA/Prenat 1 tab DAILY PO 12/12/24 10:00 12/16/24 09:37 1 TAB Enteral Nutritional Formula 27.5 gm DAILY PO 12/12/24 10:00 12/14/24 09:26 27.5 GM Ergocalciferol 50,000 unit Q7D PO 12/12/24 08:45 12/12/24 09:38 50,000 UNIT Enteral Nutritional Formula 240 ml BIDWM PO 12/13/24 08:00 12/17/24 08:21 240 ML Cefepime HCl 50 ml @ 12.5 mls/hr DAILY@2200 IV 12/14/24 22:00 12/19/24 22:00 12.5 MLS/HR Midodrine 15 mg TID@0600,1200,1800 PO 12/15/24 12:00 12/19/24 06:25 15 MG Sodium Chloride 10 ml QSHIFT@10,22 IV 12/16/24 22:00 12/20/24 09:31 10 ML Acetaminophen 325 mg Q6HP PRN NE 12/17/24 06:45 Epoetin Tonio-epbx 10,000 unit 2XW SC 12/17/24 12:00 Norepinephrine Bitartrate 250 ml @ 0.938 mls/ hr Q24H IV 12/18/24 06:30 Octreotide Acetate 100 mcg TID SUBCUT 12/18/24 14:00 12/20/24 06:25 100 MCG Dopamine HCl/ Dextrose 250 ml @ 6.413 mls/ hr Q24H IV 12/18/24 09:45 12/19/24 19:53 6.413 MLS/HR Citalopram Hydrobromide 10 mg DAILY PO 12/20/24 10:00 Examination: LUNGS:Normal, CVS:Normal, MSK:Abnormal laboratory and microbiology Laboratory Tests 12/20/24 04:56 Test 12/20/24 04:56 Range/Units Serum Glucose 117 H 74-106 mg/dL Microbiology Date/Time Source Procedure Growth Status 12/12/24 13:20 Stool Stool Culture - Final Complete 12/12/24 13:20 Stool Shiga Toxin I & II - Final Complete 12/11/24 15:31 Sputum Gram Stain - Final Complete 12/11/24 15:31 Sputum Respiratory Culture - Final Complete 12/10/24 10:17 Sacrum Gram Stain - Final Complete 12/10/24 10:17 Wound Culture - Final Enterococcus faecalis Presumptive Halima albicans Complete 12/10/24 10:17 Voided Urine Urine Culture - Final Complete 12/08/24 14:39 Blood Blood Culture - Final NO GROWTH AFTER 5 DAYS OF INCUBATION. 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 hemodialysis s/p BM biopsy pending results and Lymph node biopsy showing Hodgkin's lymphoma s/p tunneled catheter for dialysis Low-dose dopamine Octreotide IV Levophed for blood pressure support We will continue to follow up Plan discussed with: Spouse, Other (Nurse) My Orders My Orders Orders - RITA SANDS MD Procedure Category Date Status Time Communication Order ORDERS 12/19/24 Transmitted 13:01 Dietary Evaluation Review Comments: 1) Ergocalciferol 50,000IU weekly 2) Jose L 1 pk daily, MVI w/ mineral 1 tab, Vit C 500mg BID, Zinc sulfate 220mg daily x 10 days 3) Advance to [id number] + renal special 80gm protein diet 4) Continue current plan of care Expected Outcomes/Goals: Advance diet to meet at least 75% estimated needs FU 2-3 days CC Plasma Assessment Blood Product Administration S: 11:05 RITA SANDS MD Dec 20, 2024 10:17
--- NOTE | 2024-12-20 10:46 | DVHPN2 ---
Progress Note - Dictate Date Seen: Dec 20, 2024 Has the PT tested + for MRSA If YES, has PT been informed?: No Medical Necessity Reason Pt with a Central, PICC or Fol: Yes The following are medically ne: Pond Catheter Reason for pond catheter: Bladder Retention/Obstruc, Strict I&O Subjective Mr. Narciso White is a 59 years old right-handed gentleman with a history of hypertension, diabetes, dyslipidemia, coronary artery disease, heart attack, recent CABG, he was taken to the [facility] on 12/03/2024 with a chief company of fever. But he was also developed acute stroke syndrome I have seen and examined the patient, discussed with his nurse, is in the room with him. He is awake, he responded to me socially, but he does not answer questions or follow verbal commands, he does not move the extremities, he only talks occasionally with weak voice UDS, 12/04/2024: Negative Urinalysis, 12/04/2024: WBC: 1, urine leukocyte esterase: Negative WBC/HB/PLT/MCV, 12/06/2024: 0.6/7.8/147/84.5 12/07/2024: 0.8/8.2/141/84.2, 12/17/2024: 16.3/8.4/67/82.3 PTT/INR/PTT, 12/05/2024: 12.4/1.19/37.2 BUN/CR, 12/06/2024: 82/3.64, 12/12/2024: 48/3.67, 12/18/2024: 62/4.21 HGB A1c, 12/04/2024: 5.9 TBI/AST/ALT/AP, 12/06/2024: 1.5/68/37/454, 12/10/2024: 3.5/88/36/616 12/12/2024: 5/76/29/825, both 05/06: 11.1/82/35/184 TG/HDL/LDL/HDL, 12/06/2024: 138/79/20/11, 12/07/2024: 141/77/20/9 Vitamin B12, 11/2024: 1395 TSH, 11/2024: 0.7 SIFE, 12/06/2024: Iron/TIBC/Sat, 12/10/2024: 34/123/27.5 Ferritin, 12/10/2024: >3300 Carotid Doppler, 12/07/2024: No hemodynamically significant stenosis within the carotid arteries Echocardiogram, 12/05/2024: Sinus rhythm. Left atrial enlargement with dilation of the sinuses of Valsalva. Mild RV enlargement. Moderate aortic sclerosis with diminished excursion of the leaflets and calcification of what appears to be the right and non coronary cusps. From the short axis view there does not appear to be limitation in motion. Normal pulmonic valve. Left ventricular function appears preserved. EF of about 50% with normal RV function. The tricuspid is normal. Doppler reveals some mild to moderate TR. No pericardial effusion masses or vegetations EMILY, 12/07/2024: Normal chamber dimensions. Valves appear to be structurally normal. Normal aortic mitral tricuspid and pulmonic valves Left ventricular function was preserved at 60% with normal RV function. Doppler reveals mild tricuspid insufficiency. Mild mitral insufficiency. No pericardial effusion masses or vegetations noted. The atrial appendage is normal. There are no thrombi present. Bubble study did not reveal crossover into the left side. Abnormal shunting otherwise present. MRI brain, 12/06/2024: 1. There is a small area of restricted diffusion involving the anterior body / genu of the corpus callosum consistent with an acute to subacute infarct. There is no evidence of acute hemorrhage. There is no mass effect. 2. There are additional scattered punctate foci of restricted diffusion in the bilateral frontal and right parietal lobe deep white matter which may represent tiny foci of acute to subacute infarcts Lymph node biopsy, 12/06/24: Hodgkin's lymphoma MRI brain, 12/18/2024: Limited views of the brain are provided with limited evaluation of the provided views due to motion artifact. Subacute appearing infarct of the genu/anterior body of the corpus callosum. The additional scattered punctate foci of diffusion restriction within the bilateral frontal and parietal lobes noted on prior imaging appear significantly less conspicuous on current study. No new areas of diffusion restriction are noted within the limitations of motion artifact. Bone marrow aspiration: myeloid dysmaturation without overt increase in blasts, monocytes 32% vital signs Vital Sign Date Time Temp Pulse Resp B/P (MAP) Pulse Ox O2 Delivery O2 Flow Rate FiO2 12/20/24 10:15 100.4 84 16 126/70 (88) 97 100.4 12/20/24 10:00 Nasal Cannula* 3 32 Total Intake and Output 12/19/24 12/19/24 12/20/24 15:00 23:00 07:00 Intake Total 51.304 ml 19.239 ml 6.413 ml Output Total 50 ml 50 ml Balance 51.304 ml -30.761 ml -43.587 ml medications Current Medications Medications Dose Ordered Sig/Shavon Route Start Time Stop Time Status Last Admin Dose Admin Acetaminophen 650 mg Q6HP PRN PO 12/04/24 03:30 12/18/24 18:46 650 MG Ondansetron HCl 4 mg Q4HP PRN IV 12/04/24 03:30 Diagnostic Test (Pha) 1 strip ACHS 12/04/24 07:00 12/20/24 06:25 1 STRIP Pantoprazole Sodium 40 mg BID IV 12/04/24 06:45 12/20/24 09:31 40 MG Calcium Acetate 1,334 mg TIDWMEALS PO 12/08/24 12:00 12/16/24 12:11 1,334 MG Micafungin Sodium 100 mg/Sodium Chloride 100 ml @ 100 mls/hr DAILY IV 12/10/24 10:00 12/20/24 09:31 100 MLS/HR Gabapentin 200 mg HS PO 12/10/24 22:00 12/18/24 21:53 200 MG Nystatin 5 ml QID MT 12/10/24 16:00 12/16/24 12:11 5 ML Daptomycin 0 ml @ 0 mls/hr PER PHARMACY IV 12/10/24 20:30 Daptomycin 500 mg/ Sodium Chloride 50 ml @ 100 mls/hr Q48H IV 12/11/24 15:00 12/19/24 14:29 100 MLS/HR Multivit/Ca Carb/ B Cmplx/FA/Prenat 1 tab DAILY PO 12/12/24 10:00 12/16/24 09:37 1 TAB Enteral Nutritional Formula 27.5 gm DAILY PO 12/12/24 10:00 12/14/24 09:26 27.5 GM Ergocalciferol 50,000 unit Q7D PO 12/12/24 08:45 12/12/24 09:38 50,000 UNIT Enteral Nutritional Formula 240 ml BIDWM PO 12/13/24 08:00 12/17/24 08:21 240 ML Cefepime HCl 50 ml @ 12.5 mls/hr DAILY@2200 IV 12/14/24 22:00 12/19/24 22:00 12.5 MLS/HR Midodrine 15 mg TID@0600,1200,1800 PO 12/15/24 12:00 12/19/24 06:25 15 MG Sodium Chloride 10 ml QSHIFT@10,22 IV 12/16/24 22:00 12/20/24 09:31 10 ML Acetaminophen 325 mg Q6HP PRN AL 12/17/24 06:45 Epoetin Tonio-epbx 10,000 unit 2XW SC 12/17/24 12:00 Norepinephrine Bitartrate 250 ml @ 0.938 mls/ hr Q24H IV 12/18/24 06:30 Octreotide Acetate 100 mcg TID SUBCUT 12/18/24 14:00 12/20/24 06:25 100 MCG Dopamine HCl/ Dextrose 250 ml @ 6.413 mls/ hr Q24H IV 12/18/24 09:45 12/19/24 19:53 6.413 MLS/HR Citalopram Hydrobromide 10 mg DAILY PO 12/20/24 10:00 objective General: the patient is well developed and nourished. No acute distress. Jaundice MENTAL STATUS: Subjective SPEECH, LANGUAGE, HIGHER CORTICAL FUNCTION: no aphasia or dysathria. CRANIAL NERVES: Pupils are equal, round and reactive. EOMs full and conjugate. No nystagmus. Facial sensation intact in all three divisions bilaterally. Mandibular strength intact. Facial muscles symmetrical and strength intact. SENSATION: Sensation to touch and pinprick is diminished distally in the lower extremities, but no [id number] differences MOTOR: Normal tone in the upper and lower extremity. Normal muscle bulk. No fasciculations. No abnormal movements or posturing. Subjective REFLEXES: Deep tendon reflexes are symmetrical. No pathological reflexes. CEREBELLAR/COORDINATION: No ataxia in the upper extremities GAIT/STATION: deferred. laboratory and microbiology Laboratory Tests 12/20/24 04:56 Test 12/20/24 04:56 Range/Units Serum Glucose 117 H 74-106 mg/dL Problem List Altered mental status, general weakness Metabolic encephalopathy Recent acute stroke with left-sided weakness Acute stroke syndrome MRI evident multiple acute strokes (11/08/2024) Pancytopenia/rule out malignancy Anemia Fever/sepsis Septic shock Coronary artery disease with recent CABG Diabetic polyneuropathy Restless leg syndrome Anemia Elevated liver function tests Hodgkin's lymphoma Jaundice Depression Assessment/Plan Monitoring Supportive treatment Psychiatry evaluation ICU care IV antibiotics Aspirin 81 mg daily Lipitor 75 mg daily Gabapentin 200 mg in the evening Physical therapist GI prophylaxis Up to chair He is aware of neuropathy related foot care More recommendation per clinical course This medical document was created using an electronic medical record system with [employer] dictation system. Although this document has been carefully reviewed, there may still be some phonetic and typographical errors. These areas are purely typographical due to imperfections of the software programs, and do not reflect any compromise in the patient's medical care. Prognosis poor Dietary Evaluation Review Comments: 1) Ergocalciferol 50,000IU weekly 2) Jose L 1 pk daily, MVI w/ mineral 1 tab, Vit C 500mg BID, Zinc sulfate 220mg daily x 10 days 3) Advance to [id number] + renal special 80gm protein diet 4) Continue current plan of care Expected Outcomes/Goals: Advance diet to meet at least 75% estimated needs FU 2-3 days Plan discussed with: Other CC Plasma Assessment Blood Product Administration S: 11:05 NIKOLAS PRATT MD Dec 20, 2024 10:46
[2024-12-20] MEDS: ceFAZolin 2 GM/D5W50ml 50 ML IV ONE (10:47)
[2024-12-20] MEDS: ceFAZolin 1GM VL ONE (11:23)
[2024-12-20] MEDS: BUPIVACAINE 0.5% P/F INJ 10 ML VIAL ONE (11:30)
--- NOTE | 2024-12-20 11:43 | DVHOP2 ---
Operative Report [id number] NON HEALING LOW BACK WOUND WITH TISSUE NECROSIS TISSUE DEBRIDEMENT NO HEALING LOW BACK WOUND EBL 5 CC NO DRAINS NO COMPLICATIONS SPEEDY DOYLE MD Dec 20, 2024 11:43
[2024-12-20] MEDS ORDERED: ONDANSETRON HCL 4 MG/2 ML VIAL IV PRN (12:00)
[2024-12-20] MEDS ORDERED: ePHEDrine SULFATE 50 MG/ML AMP IV PRN (12:00)
[2024-12-20] MEDS ORDERED: HYDROmorphone HCL 2 MG/ML VL/or syr IV PRN (12:00)
[2024-12-20] MEDS ORDERED: hydrALAZINE HCL 20 MG/ML VL IV PRN (12:00)
[2024-12-20] MEDS ORDERED: fentaNYL CITRATE 100 MCG/2 ML VL IV PRN (12:00)
[2024-12-20] MEDS ORDERED: FLUMAZENIL 0.1 MG/ML INJ 10ML MDV IV PRN (12:00)
[2024-12-20] MEDS ORDERED: NALOXONE HCL 0.4 MG/ML VIAL IV PRN (12:00)
--- NOTE | 2024-12-20 12:01 | DVHOP ---
DATE OF SURGERY: 12/20/2024 PREOPERATIVE DIAGNOSIS: Nonhealing low back wound. POSTOPERATIVE DIAGNOSIS: Nonhealing low back wound. PROCEDURE: Tissue debridement of the nonhealing low back wound. SURGEON: Andrade Jacinto MD. DIGITAL MARKETING LEAD: None. ANESTHESIA: Local, IV sedation. DESCRIPTION OF PROCEDURE: The patient was prepped and draped in the usual sterile fashion in the lateral position with the left side up and lidocaine was infiltrated in the vicinity. There were 2 wounds, right next to each other. One was smaller in diameter, the other was bigger and they were both removed using cautery going up to the subcutaneous tissues the smaller one and the bigger wound, it was the right next to it. It was the one going into the muscle and there was some purulent activity noted here as well and that was cultured and the cautery was used to take the necrotic tissue off and based upon this, the irrigation performed. Hemostasis was secured. Dressing was applied with no complications and the patient was taken back to the ICU in a stable condition. MD DEBORAH Hernandez/MESFIN TID: [id number] RECEIPT: [id number]
[2024-12-20] MEDS ORDERED: MORPHINE SULFATE 4 MG/ML SYR/VIAL IV PRN (15:30)
--- NOTE | 2024-12-20 19:39 | DVHPN2 ---
Progress Note - Dictate Date Seen: Dec 20, 2024 Has the PT tested + for MRSA If YES, has PT been informed?: No Medical Necessity Reason Pt with a Central, PICC or Fol: Yes The following are medically ne: Pond Catheter Reason for pond catheter: Bladder Retention/Obstruc, Strict I&O Subjective Patient seen and examined at bedside. Remains on supplemental oxygen Overnight events reviewed. vital signs Vital Sign Date Time Temp Pulse Resp B/P (MAP) Pulse Ox O2 Delivery O2 Flow Rate FiO2 12/20/24 18:30 82 20 119/66 (83) 98 12/20/24 18:00 Nasal Cannula* 3 32 12/20/24 16:00 98.5 98.5 Total Intake and Output 12/19/24 12/19/24 12/20/24 15:00 23:00 07:00 Intake Total 51.304 ml 19.239 ml 6.413 ml Output Total 50 ml 50 ml Balance 51.304 ml -30.761 ml -43.587 ml medications Current Medications Medications Dose Ordered Sig/Shavon Route Start Time Stop Time Status Last Admin Dose Admin Acetaminophen 650 mg Q6HP PRN PO 12/04/24 03:30 12/18/24 18:46 650 MG Ondansetron HCl 4 mg Q4HP PRN IV 12/04/24 03:30 Diagnostic Test (Pha) 1 strip ACHS 12/04/24 07:00 12/20/24 16:50 1 STRIP Pantoprazole Sodium 40 mg BID IV 12/04/24 06:45 12/20/24 09:31 40 MG Calcium Acetate 1,334 mg TIDWMEALS PO 12/08/24 12:00 12/16/24 12:11 1,334 MG Micafungin Sodium 100 mg/Sodium Chloride 100 ml @ 100 mls/hr DAILY IV 12/10/24 10:00 12/20/24 09:31 100 MLS/HR Gabapentin 200 mg HS PO 12/10/24 22:00 12/18/24 21:53 200 MG Nystatin 5 ml QID MT 12/10/24 16:00 12/16/24 12:11 5 ML Daptomycin 0 ml @ 0 mls/hr PER PHARMACY IV 12/10/24 20:30 Daptomycin 500 mg/ Sodium Chloride 50 ml @ 100 mls/hr Q48H IV 12/11/24 15:00 12/19/24 14:29 100 MLS/HR Multivit/Ca Carb/ B Cmplx/FA/Prenat 1 tab DAILY PO 12/12/24 10:00 12/16/24 09:37 1 TAB Enteral Nutritional Formula 27.5 gm DAILY PO 12/12/24 10:00 12/14/24 09:26 27.5 GM Ergocalciferol 50,000 unit Q7D PO 12/12/24 08:45 12/12/24 09:38 50,000 UNIT Enteral Nutritional Formula 240 ml BIDWM PO 12/13/24 08:00 12/17/24 08:21 240 ML Cefepime HCl 50 ml @ 12.5 mls/hr DAILY@2200 IV 12/14/24 22:00 12/19/24 22:00 12.5 MLS/HR Midodrine 15 mg TID@0600,1200,1800 PO 12/15/24 12:00 12/19/24 06:25 15 MG Sodium Chloride 10 ml QSHIFT@10,22 IV 12/16/24 22:00 12/20/24 09:31 10 ML Acetaminophen 325 mg Q6HP PRN MS 12/17/24 06:45 Epoetin Tonio-epbx 10,000 unit 2XW SC 12/17/24 12:00 Norepinephrine Bitartrate 250 ml @ 0.938 mls/ hr Q24H IV 12/18/24 06:30 Octreotide Acetate 100 mcg TID SUBCUT 12/18/24 14:00 12/20/24 14:38 100 MCG Dopamine HCl/ Dextrose 250 ml @ 6.413 mls/ hr Q24H IV 12/18/24 09:45 12/19/24 19:53 6.413 MLS/HR Citalopram Hydrobromide 10 mg DAILY PO 12/20/24 10:00 Morphine Sulfate 2 mg Q4H PRN IV 12/20/24 15:30 Morphine Sulfate 4 mg Q4HPRN PRN IV 12/20/24 15:30 Enteral Nutritional Formula 1,000 ml 30ML/HR GT 12/20/24 18:00 objective Gen.: Patient lying in bed in no apparent distress. On supplemental oxygen. Head: Normocephalic, atraumatic. Eyes: EOMI/PERRLA. Ears: Normal hearing. Normal anatomy. Neck/trachea: Trachea midline, supple. Nose: Normal external anatomy. Mouth: Moist mucous membranes. Chest: Decreased air entry bilaterally. No wheezing or rhonchi. Cardiovascular: Positive S1, positive S2. Regular rate and rhythm. Abdomen: Positive bowel sounds in all 4 quadrants. Soft, non-tender, non- distended. : Deferred. Rectal: Deferred. Skin: Warm, dry. Intact. Extremities: 2+ radial pulses bilaterally. No lower extremity edema. Neuro: Awake, alert, oriented x3. No gross motor or sensory deficits. Cranial nerves II through XII intact. Gait not assessed. laboratory and microbiology Laboratory Tests 12/20/24 04:56 Test 12/20/24 04:56 Range/Units Serum Glucose 117 H 74-106 mg/dL Assessment/Plan Impression: Acute hypoxic respiratory failure Dependence on supplemental oxygen Possible urinary tract infection CAD, s/p 3-vessel CABG. Septic shock Cerebrovascular accident Left pleural effusion Atelectasis Events: Remains on supplemental oxygen, 3 LPM NC Taper O2 as tolerated No distress. Status post wound debridement Wound care S/p NG tube Hodgkin's lymphoma - awaiting bone marrow biopsy results. Pressors for hemodynamic support On dopamine at 2 mcg, renally dosed. Titrate to keep mean arterial pressure greater than 65 mmHg. Monitor blood pressure WBC trending down at 12.4 Hemodialysis per Nephrology Requiring Levophed during dialysis Monitor renal function. Monitor electrolytes. Supplement as necessary. Nephrology recommendations appreciated Head of bed elevation Aspiration precautions Continue antibiotics Continue antifungal Incentive spirometry Continue PT/OT Accu-Cheks Protonix BID Monitor hemoglobin Monitor platelets d/t thrombocytopenia Plan for hospice evaluation Labs and imaging reviewed. Rest of plan as noted below. Plan: Supplemental oxygen Titrate to keep O2 sats above 92%. Pressors as necessary for hemodynamic support Titrate to keep mean arterial pressure greater than 65 mmHg. Echocardiogram reviewed, notable for EF 50% Cardiology recs appreciated. Continue antibiotics Continue antifungal Incentive spirometry Accu-Cheks, ISS PRN. Pain control Avoid oversedation Monitor renal function. Monitor electrolytes. Supplement as necessary. Monitor ins and outs. Karen for strict ins and outs Plan for hospice evaluation. DVT prophylaxis. Prognosis: Poor given patient's multiple co-morbidities. Condition: Critical Rest of plan per hospitalist and other consultants. A total of 35 minutes of critical care time was spent reviewing the patient record, examining the patient, making a diagnostic and therapeutic plan, discussing this plan with the medical personnel, following up on diagnostic studies and following the patient for clinical stability excluding any and all procedures. At least 50% of this time was spent in direct, [id number] contact. Thank you, Dr. Smith, for allowing me to participate in this patient's care. Further recommendations will depend on the patient's clinical course. Please do not hesitate to contact me if you have any questions or concerns. This medical document was created using an electronic medical record system with [employer] dictation system. Although these documentations are being carefully reviewed, there may still be some phonetic and typographical changes. The errors are purely typographical, due to imperfection on the software program, and do not reflect any compromise in the patient's medical care. Dietary Evaluation Review Comments: 1) Ergocalciferol 50,000IU weekly 2) Jose L 1 pk daily, MVI w/ mineral 1 tab, Vit C 500mg BID, Zinc sulfate 220mg daily x 10 days 3) Advance to [id number] + renal special 80gm protein diet 4) Continue current plan of care Expected Outcomes/Goals: Advance diet to meet at least 75% estimated needs FU 2-3 days Plan discussed with: Other (VIJAY Bhatti) Critical Care Time(min): 35 CC Plasma Assessment Blood Product Administration S: 11:05 JERAMY CAMARA MD Dec 20, 2024 19:39
--- NOTE | 2024-12-20 21:51 | DVH ---
EXAM: XY CHEST PORTABLE TECHNIQUE: Single frontal chest radiograph CLINICAL HISTORY: Verify NG Placement COMPARISON: XY CHEST PORTABLE on DOS: 12/20/24, XY CHEST XRAY 1 VIEW on DOS: 12/12/24, XY CHEST XRAY 1 V IEW on DOS: 11/02/24 Findings/Impression: Frontal chest radiograph demonstrates no acute osseous or superficial soft tissue abnormalities. Tunneled right-sided HD catheter terminates in the right atrium. Enteric tube is overlying the plane of the stomach. The trachea is midline. The cardiac silhouette and mediastinum are within normal limits. Low lung volumes with bronchovascular crowding. No pneumothorax, pleural effusions, or consolidations.
[2024-12-20] MEDS: Nepro With Carb Steady 1 Liter Bottle GT SCH (23:51)
[2024-12-21] VITALS (102 sets, daily range): BP systolic 86–148; BP diastolic 50–80; PULSE 74–91; RESP 12–21; TEMP 98.2–100.3; O2SAT 79–100
[2024-12-21 05:05] LABS: Mean Corpuscular Hemoglobin 27.7 pg (28.0-32.0)
[2024-12-21 05:07] LABS: Hematocrit 21.6 % (41.0-53.0); Hemoglobin 7.3 g/dL (13.5-17.5); Mean Corpuscular Hgb Conc. 33.9 g/dL (32.0-36.0); Mean Corpuscular Volume 81.7 fL (80.0-100.0); Platelet Count (auto) 66 10^3/uL (140-450); Red Blood Cells 2.65 10^6/uL (4.5-5.90); Red Cell Distribution Width 18.4 % (11.8-14.3); White Blood Cell 15.4 10^3/uL (4.4-10.8)
[2024-12-21 05:20] LABS: Basophils % (manual) 0 (0.0-2.0); Blast Cells 0; Eosinophils % (manual) 0 (0-7); Metamyelocytes % 0; Myelocytes % 0; Promyelocytes % 0; Reactive Lymphocytes 0
[2024-12-21 05:48] LABS: Alanine Aminotransferase 29 U/L (7-40); Anion Gap 15 (5-15)
[2024-12-21 06:05] LABS: Albumin 2.7 g/dL (3.2-4.8); Alkaline Phosphatase 651 U/L (46-116); Aspartate Aminotransferase 64 U/L (13-40); Bilirubin, Total 16.7 mg/dL (0.2-1.0); Blood Urea Nitrogen 84 mg/dL (9-23); Calcium 6.9 mg/dL (8.7-10.4); Carbon Dioxide 20 mmol/L (20-31); Chloride 97 mmol/L (98-107); Glucose 186 mg/dL (74-106); Potassium 5.2 mmol/L (3.5-5.1); Sodium 132 mmol/L (136-145)
[2024-12-21 06:34] LABS: Band Neutrophils % (manual) 3; Lymphocytes % (manual) 3 (10.0-50.0); Monocytes % (manual) 2 (0-12); Ovalocytes FEW
[2024-12-21 06:35] LABS: Platelet Estimate Decreased
[2024-12-21 06:44] LABS: BUN/Creatinine Ratio 16.2 (10.0-20.0)
[2024-12-21 06:45] LABS: Total Protein 5.1 g/dL (5.7-8.2)
[2024-12-21] MEDS: SODIUM CHL 0.9% 1000 ML BAG XX ONE (07:00)
[2024-12-21] MEDS: ALBUMIN 25% 100 ML IV SCH (09:32)
--- NOTE | 2024-12-21 10:44 | DVHPN2 ---
Assessment/Plan Assessment/Plan Progress note Mr. Vu is a 59-year-old male with a past medical history of coronary artery disease status post CABG in October 2024, ischemic stroke oct 2024, status post bed bound and chronic indwelling Pond, hypertension, and hyperlipidemia. He was brought to the ER by the family with a chief complaint of heavy breathing, fever, chills, and anuria for the past 3 days. Per the daughter at bedside, the patient had never followed up with urology or cardiology after he was discharged from this facility on 11/07/24. He usually makes 1600 cc of urine a day. Per daughter, patient has a wound in his back and is also draining a white pus-like substance. Patient also reported dysuria and abdominal discomfort. He also reports heavy breathing and mild nonproductive cough. On arrival, patient was febrile at 101.2F, tachycardic, blood pressure 144/77, and requiring 4 L oxygen supplementation. White cell count was 3.6, hemoglobin 8.8, and hematocrit 23. Patient had hyperkalemia, potassium was 6 which downtrended to 5.4. Creatinine was 2.9 and BUN 77. Patient's Pond catheter was removed in ED after being in place for more than a month, the patient does not urinate on his own, bladder scan showed empty bladder, nephrology was consulted. Chest x-ray shows bibasilar consolidation. The patient has mildly elevated transaminases. Cardiology consulted given CT findings of substernal soft tissue density: new echo ordered, azithromycin was added to cover atypicals and hyperkalemia protocol was done, patient is having febrile neutropenia, CT scan of abdomen showed right groin lymphadenopathy, lymphadenopathy biopsy was done. 1 RBC was transfused per cardiology. 12/06/24 at 5:30 pm, patient had an episode of AMS, weakness, and hypotension, increased left leg weakness and left facial droop. CT scan negative for stroke or hemorrhage, patient was placed on Levophed and weaned off at 8 pm, fluids IV 100 cc during the night, today x-ray showed mild congestion. IV fluids reduced to 60cc and furosemide IV was started. New MRI showed multiple small strokes in different places; probably cardiembolic etiology. Neurology Dr. Cabral, stated no need for CTA or thrombectomy, also transfer to [facility] was planned but according to the center he had his CABG, patient can be managed in [facility]. Also, nephrology consulted. EMILY was ordered and will be done today. Worsening renal function; nephrology will discuss possible hemodialysis with the patient and his family. EMILY negative, neupogen started, patient had fever last night, new pancultures, renal function is trending high, dialysis catheter placed on the left, new K normal on place, possible HD. ID was consulted, vancomycin was changed for daptomycin, further studies were ordered to study possible source of infection, WBC is trending high, last fever 12/10 4pm, HD was done but patient needed levophed 2mcg, bilirubin is trending high, EPO was started by Nephro. lymph node biopsy: Hodgkin lymphoma, diagnosis disccused with family, patient still having fevers and diarrhea, necrotic ulcer debrided seen by me today during rounds, mental status apathic, spiking fever, bili co ntinued to trend up, GBUS ordered. on abx. physical exam alert oriented x3 clear breath sounds JVD clavicles s1 s2 rrr no murmur abdomen soft nontender trace LE edema R IJ permacath labs ekg imaging reviewed assessment and plan acute metabolic / toxic encephalopathy, uremic vs hepatic vs septic multiple CVA with residual stroke recurdescence shock, multifactorial acute on chronic diastolic heart failure HFpEF CAD s/p CABG acute hypoxic RF PNA gp vs gn atelectasis b/l PLEF cirrhosis gallblader polyps hyperbilirubinemia new diagnosed hodgkin lymphoma normoctyic anemia febrile neutropenia thrombocytopenia GOPAL ATN on CKD now ESRD on HD hyperkalemia secondary hyperparathyroidism stage III decub ulcer s/p debridement c/w o2 supp maintain spo2 >92% c/w dapto, cefepime, mycafungin c/w levo maintain MAP >65 [employer] per renal order GBUS hold telepsych for now mittens aspiration precaution delirium precaution low treshold for intubation decub ulcer precaution start TF no TPN high risk of fungemia lines R IJ permacath PICC line pond keep K4 Mg 2 diet TF dvt ppx lovenox gi ppx no indication critical care tanmay spent 50 minutes Plan discussed with: Spouse My Orders Orders - RADHA ROWLEY MD Procedure Category Date Status Time Place Ng ORDERS 12/20/24 Transmitted 10:41 Chest Portable XY 12/21/24 Logged 06:54 Gallbladder US 4/11/25 Logged 10:38 Date of Service: Dec 21, 2024 Billing Provider: RADHA ROWLEY MD Common Visit Codes: 77110-SIGIHSDY CARE 30-74 MIN RADHA ROWLEY MD Dec 21, 2024 10:44
--- NOTE | 2024-12-21 10:51 | DVHPN2 ---
Progress Note Date Seen: Dec 21, 2024 Has the PT tested + for MRSA If YES, has PT been informed?: No Medical Necessity Reason Pt with a Central, PICC or Fol: Yes The following are medically ne: Pond Catheter Reason for pond catheter: Bladder Retention/Obstruc, Strict I&O Subjective Patient reports: No new complaints Other Systems: Patient seen and examined by myself today in follow-up Patient examined hemodialysis, Objective vital signs Vital Sign Date Time Temp Pulse Resp B/P (MAP) Pulse Ox O2 Delivery O2 Flow Rate FiO2 12/21/24 10:11 84 17 108/72 (84) 100 12/21/24 09:39 Nasal Cannula* 3 32 12/21/24 08:00 98.4 98.4 Total Intake and Output 12/20/24 12/20/24 12/21/24 15:00 23:00 07:00 Intake Total 61.304 ml 51.304 ml 211.304 ml Output Total 20 ml 0 ml Balance 61.304 ml 31.304 ml 211.304 ml medications Current Medications Medications Dose Ordered Sig/Shavon Route Start Time Stop Time Status Last Admin Dose Admin Acetaminophen 650 mg Q6HP PRN PO 12/04/24 03:30 12/18/24 18:46 650 MG Ondansetron HCl 4 mg Q4HP PRN IV 12/04/24 03:30 Diagnostic Test (Pha) 1 strip ACHS 12/04/24 07:00 12/20/24 22:11 1 STRIP Pantoprazole Sodium 40 mg BID IV 12/04/24 06:45 12/20/24 21:56 40 MG Calcium Acetate 1,334 mg TIDWMEALS PO 12/08/24 12:00 12/16/24 12:11 1,334 MG Micafungin Sodium 100 mg/Sodium Chloride 100 ml @ 100 mls/hr DAILY IV 12/10/24 10:00 12/20/24 09:31 100 MLS/HR Gabapentin 200 mg HS PO 12/10/24 22:00 12/20/24 23:40 200 MG Nystatin 5 ml QID MT 12/10/24 16:00 12/20/24 21:56 5 ML Daptomycin 0 ml @ 0 mls/hr PER PHARMACY IV 12/10/24 20:30 Daptomycin 500 mg/ Sodium Chloride 50 ml @ 100 mls/hr Q48H IV 12/11/24 15:00 12/19/24 14:29 100 MLS/HR Multivit/Ca Carb/ B Cmplx/FA/Prenat 1 tab DAILY PO 12/12/24 10:00 12/16/24 09:37 1 TAB Enteral Nutritional Formula 27.5 gm DAILY PO 12/12/24 10:00 12/14/24 09:26 27.5 GM Ergocalciferol 50,000 unit Q7D PO 12/12/24 08:45 12/12/24 09:38 50,000 UNIT Enteral Nutritional Formula 240 ml BIDWM PO 12/13/24 08:00 12/17/24 08:21 240 ML Cefepime HCl 50 ml @ 12.5 mls/hr DAILY@2200 IV 12/14/24 22:00 12/20/24 21:57 12.5 MLS/HR Midodrine 15 mg TID@0600,1200,1800 PO 12/15/24 12:00 12/21/24 05:50 15 MG Sodium Chloride 10 ml QSHIFT@10,22 IV 12/16/24 22:00 12/21/24 07:38 10 ML Acetaminophen 325 mg Q6HP PRN OH 12/17/24 06:45 Epoetin Tonio-epbx 10,000 unit 2XW SC 12/17/24 12:00 Norepinephrine Bitartrate 250 ml @ 0.938 mls/ hr Q24H IV 12/18/24 06:30 Octreotide Acetate 100 mcg TID SUBCUT 12/18/24 14:00 12/21/24 05:50 100 MCG Dopamine HCl/ Dextrose 250 ml @ 6.413 mls/ hr Q24H IV 12/18/24 09:45 12/20/24 20:49 6.413 MLS/HR Citalopram Hydrobromide 10 mg DAILY PO 12/20/24 10:00 Morphine Sulfate 2 mg Q4H PRN IV 12/20/24 15:30 Morphine Sulfate 4 mg Q4HPRN PRN IV 12/20/24 15:30 Enteral Nutritional Formula 1,000 ml 30ML/HR GT 12/20/24 18:00 12/20/24 23:51 1,000 ML Albumin Human 100 ml @ 100 mls/hr Q1HR IV 12/21/24 10:00 12/21/24 11:59 12/21/24 10:33 100 MLS/HR Examination: LUNGS:Normal, CVS:Normal, MSK:Normal laboratory and microbiology Laboratory Tests 12/21/24 04:30 Test 12/21/24 04:30 Range/Units Serum Glucose 186 H 74-106 mg/dL Microbiology Date/Time Source Procedure Growth Status 12/20/24 12:54 Back Gram Stain Pending Resulted 12/20/24 12:54 Back Anaerobic Culture - Preliminary Resulted 12/20/24 12:54 Back Aerobic Culture Pending Resulted 12/12/24 13:20 Stool Stool Culture - Final Complete 12/12/24 13:20 Stool Shiga Toxin I & II - Final Complete 12/11/24 15:31 Sputum Gram Stain - Final Complete 12/11/24 15:31 Sputum Respiratory Culture - Final Complete 12/10/24 10:17 Voided Urine Urine Culture - Final Complete 12/08/24 14:39 Blood Blood Culture - Final NO GROWTH AFTER 5 DAYS OF INCUBATION. Complete Problem List/Assessment/Plan Problem List/Assessment/Plan Acute kidney injury due to ATN 2/2 sepsis +urinary obstruction, anuric needing HD Chronic kidney disease stage IIIB 09/2024 GFR 44 pancytopenia s/p BM biopsy 12/10/24 anemia status post PRBC Sepsis Chronic urinary retention Pond catheter was removed by ER on this admission -> replaced Hyperkalemia Chronic CVA w/ residual left sided weakness Acute TIA (12/05/24) due to hypotension Hodgkin's lymphoma Decubitus ulcer Jaundice Encephalopathy Recommendations Continue with UF 1-2 L as tolerated Epogen 74062 subQ 3 times weekly Albumin 25% p.r.n. hemodialysis s/p BM biopsy pending results and Lymph node biopsy showing Hodgkin's lymphoma s/p tunneled catheter for dialysis Low-dose dopamine Octreotide IV Levophed for blood pressure support We will continue to follow up I discussed my plan of care with and the primary nurse at the bedside Plan discussed with: Patient, Spouse, Other (Nurse) My Orders My Orders Orders - RITA SANDS MD Procedure Category Date Status Time Albumin 25% (Albutein) PHA 12/21/24 In Process 10:00 Dietary Evaluation Review Comments: 1) Ergocalciferol 50,000IU weekly 2) Jose L 1 pk daily, MVI w/ mineral 1 tab, Vit C 500mg BID, Zinc sulfate 220mg daily x 10 days 3) Advance to [id number] + renal special 80gm protein diet 4) Continue current plan of care Expected Outcomes/Goals: Advance diet to meet at least 75% estimated needs FU 2-3 days CC Plasma Assessment Blood Product Administration S: 11:05 RITA SANDS MD Dec 21, 2024 10:51
--- NOTE | 2024-12-21 12:56 | DVH ---
INDICATION: r/o acalculous rhona TECHNIQUE: Multiple real-time sonographic images were obtained of the right upper quadrant. COMPARISON: None FINDINGS: The liver demonstrates heterogeneous echotexture without focal mass lesions. The liver crista ures 15 cm. There is no intrahepatic or extrahepatic ductal dilatation. Common bile duct not visual ized Gallbladder wall is severely thickened measuring 14 mm. The right kidney measures 11 cm. Increased right renal echogenicity. The pancreas is not well visualized due to overlying bowel gas. IMPRESSION: Right medical renal disease. Severely thickened gallbladder wall. No gallstones. Small bilateral pleural effusions. Small volume ascites.
--- NOTE | 2024-12-21 13:43 | DVH ---
INDICATION: Verify NGT placement TECHNIQUE: Single frontal chest radiograph COMPARISON: XY CHEST PORTABLE on DOS: 12/20/24, XY CHEST PORTABLE on DOS: 12/20/24, XY CHEST XRAY 1 VIE W on DOS: 12/12/24, XY CHEST XRAY 1 VIEW on DOS: 11/02/24, XY CHEST XRAY 1 VIEW on DOS: 10/17/24, XY CHEST PORTABLE on DOS: 12/20/24 FINDINGS: 1. Frontal chest radiograph demonstrates no acute osseous or superficial soft tissue abnormalities. T unneled right-sided HD catheter terminates in the right atrium. Enteric tube is overlying the plane o f the stomach. The trachea is midline. The cardiac silhouette and mediastinum are within normal limit s. Low lung volumes with bronchovascular crowding. No pneumothorax, pleural effusions, or consolidati ons. IMPRESSION: Nasogastric tube tip in the stomach. Otherwise no interval change.
--- NOTE | 2024-12-21 14:56 | DVHPN2 ---
Progress Note - Dictate Date Seen: Dec 21, 2024 Has the PT tested + for MRSA If YES, has PT been informed?: No Medical Necessity Reason Pt with a Central, PICC or Fol: Yes The following are medically ne: Pond Catheter Reason for pond catheter: Bladder Retention/Obstruc, Strict I&O Subjective Mr. Narciso White is a 59 years old right-handed gentleman with a history of hypertension, diabetes, dyslipidemia, coronary artery disease, heart attack, recent CABG, he was taken to the [facility] on 12/03/2024 with a chief company of fever. But he was also developed acute stroke syndrome I have seen and examined the patient, discussed with his nurse, is in the room with him. He is awake, he responded to me socially, but he mumbles but does not answer questions or follow verbal commands. relates the patient was able to say simple words when his family was visiting earlier today He moves his right arm a little bit UDS, 12/04/2024: Negative Urinalysis, 12/04/2024: WBC: 1, urine leukocyte esterase: Negative WBC/HB/PLT/MCV, 12/06/2024: 0.6/7.8/147/84.5 12/07/2024: 0.8/8.2/141/84.2, 12/17/2024: 16.3/8.4/67/82.3 PTT/INR/PTT, 12/05/2024: 12.4/1.19/37.2, 12/20/2024: 17.8/1. BUN/CR, 12/06/2024: 82/3.64, 12/12/2024: 48/3.67, 12/18/2024: 62/4.21, 12/21/2024: 84/9.15 HGB A1c, 12/04/2024: 5.9 TBI/AST/ALT/AP, 12/06/2024: 1.5/68/37/454, 12/10/2024: 3.5/88/36/616 12/12/2024: 5/76/29/825, both 05/06: 11.1/82/35/184, 12/21/24: 16.7/64/29/651 TG/HDL/LDL/HDL, 12/06/2024: 138/79/20/11, 12/07/2024: 141/77/20/9 Vitamin B12, 11/2024: 1395 TSH, 11/2024: 0.7 SIFE, 12/06/2024: Iron/TIBC/Sat, 12/10/2024: 34/123/27.5 Ferritin, 12/10/2024: >3300 Carotid Doppler, 12/07/2024: No hemodynamically significant stenosis within the carotid arteries Echocardiogram, 12/05/2024: Sinus rhythm. Left atrial enlargement with dilation of the sinuses of Valsalva. Mild RV enlargement. Moderate aortic sclerosis with diminished excursion of the leaflets and calcification of what appears to be the right and non coronary cusps. From the short axis view there does not appear to be limitation in motion. Normal pulmonic valve. Left ventricular function appears preserved. EF of about 50% with normal RV function. The tricuspid is normal. Doppler reveals some mild to moderate TR. No pericardial effusion masses or vegetations EMILY, 12/07/2024: Normal chamber dimensions. Valves appear to be structurally normal. Normal aortic mitral tricuspid and pulmonic valves Left ventricular function was preserved at 60% with normal RV function. Doppler reveals mild tricuspid insufficiency. Mild mitral insufficiency. No pericardial effusion masses or vegetations noted. The atrial appendage is normal. There are no thrombi present. Bubble study did not reveal crossover into the left side. Abnormal shunting otherwise present. MRI brain, 12/06/2024: 1. There is a small area of restricted diffusion involving the anterior body / genu of the corpus callosum consistent with an acute to subacute infarct. There is no evidence of acute hemorrhage. There is no mass effect. 2. There are additional scattered punctate foci of restricted diffusion in the bilateral frontal and right parietal lobe deep white matter which may represent tiny foci of acute to subacute infarcts Lymph node biopsy, 12/06/24: Hodgkin's lymphoma MRI brain, 12/18/2024: Limited views of the brain are provided with limited evaluation of the provided views due to motion artifact. Subacute appearing infarct of the genu/anterior body of the corpus callosum. The additional scattered punctate foci of diffusion restriction within the bilateral frontal and parietal lobes noted on prior imaging appear significantly less conspicuous on current study. No new areas of diffusion restriction are noted within the limitations of motion artifact. Bone marrow aspiration: myeloid dysmaturation without overt increase in blasts, monocytes 32% vital signs Vital Sign Date Time Temp Pulse Resp B/P (MAP) Pulse Ox O2 Delivery O2 Flow Rate FiO2 12/21/24 14:20 88 17 137/73 (94) 100 12/21/24 14:07 Nasal Cannula* 3 32 12/21/24 12:00 98.3 98.3 Total Intake and Output 12/20/24 12/20/24 12/21/24 15:00 23:00 07:00 Intake Total 61.304 ml 51.304 ml 211.304 ml Output Total 20 ml 0 ml Balance 61.304 ml 31.304 ml 211.304 ml medications Current Medications Medications Dose Ordered Sig/Shavon Route Start Time Stop Time Status Last Admin Dose Admin Acetaminophen 650 mg Q6HP PRN PO 12/04/24 03:30 12/18/24 18:46 650 MG Ondansetron HCl 4 mg Q4HP PRN IV 12/04/24 03:30 Diagnostic Test (Pha) 1 strip ACHS 12/04/24 07:00 12/21/24 11:30 1 STRIP Pantoprazole Sodium 40 mg BID IV 12/04/24 06:45 12/21/24 10:58 40 MG Calcium Acetate 1,334 mg TIDWMEALS PO 12/08/24 12:00 12/16/24 12:11 1,334 MG Gabapentin 200 mg HS PO 12/10/24 22:00 12/20/24 23:40 200 MG Nystatin 5 ml QID MT 12/10/24 16:00 12/21/24 12:11 5 ML Daptomycin 0 ml @ 0 mls/hr PER PHARMACY IV 12/10/24 20:30 Daptomycin 500 mg/ Sodium Chloride 50 ml @ 100 mls/hr Q48H IV 12/11/24 15:00 12/19/24 14:29 100 MLS/HR Multivit/Ca Carb/ B Cmplx/FA/Prenat 1 tab DAILY PO 12/12/24 10:00 12/16/24 09:37 1 TAB Enteral Nutritional Formula 27.5 gm DAILY PO 12/12/24 10:00 12/14/24 09:26 27.5 GM Ergocalciferol 50,000 unit Q7D PO 12/12/24 08:45 12/12/24 09:38 50,000 UNIT Enteral Nutritional Formula 240 ml BIDWM PO 12/13/24 08:00 12/17/24 08:21 240 ML Cefepime HCl 50 ml @ 12.5 mls/hr DAILY@2200 IV 12/14/24 22:00 12/20/24 21:57 12.5 MLS/HR Midodrine 15 mg TID@0600,1200,1800 PO 12/15/24 12:00 12/21/24 05:50 15 MG Sodium Chloride 10 ml QSHIFT@10,22 IV 12/16/24 22:00 12/21/24 07:38 10 ML Acetaminophen 325 mg Q6HP PRN ME 12/17/24 06:45 Epoetin Tonio-epbx 10,000 unit 2XW SC 12/17/24 12:00 Norepinephrine Bitartrate 250 ml @ 0.938 mls/ hr Q24H IV 12/18/24 06:30 Octreotide Acetate 100 mcg TID SUBCUT 12/18/24 14:00 12/21/24 05:50 100 MCG Dopamine HCl/ Dextrose 250 ml @ 6.413 mls/ hr Q24H IV 12/18/24 09:45 12/20/24 20:49 6.413 MLS/HR Citalopram Hydrobromide 10 mg DAILY PO 12/20/24 10:00 Morphine Sulfate 2 mg Q4H PRN IV 12/20/24 15:30 Morphine Sulfate 4 mg Q4HPRN PRN IV 12/20/24 15:30 Enteral Nutritional Formula 1,000 ml 30ML/HR GT 12/20/24 18:00 12/20/24 23:51 1,000 ML objective General: the patient is well developed and nourished. No acute distress. Jaundice MENTAL STATUS: Subjective SPEECH, LANGUAGE, HIGHER CORTICAL FUNCTION: no aphasia or dysathria. CRANIAL NERVES: Pupils are equal, round and reactive. EOMs full and conjugate. No nystagmus. Facial sensation intact in all three divisions bilaterally. Mandibular strength intact. Facial muscles symmetrical and strength intact. SENSATION: Sensation to touch and pinprick is diminished distally in the lower extremities, but no [id number] differences MOTOR: Normal tone in the upper and lower extremity. Normal muscle bulk. No fasciculations. No abnormal movements or posturing. Subjective REFLEXES: Deep tendon reflexes are symmetrical. No pathological reflexes. CEREBELLAR/COORDINATION: No ataxia in the upper extremities GAIT/STATION: deferred. laboratory and microbiology Laboratory Tests 12/21/24 04:30 Test 12/21/24 04:30 Range/Units Serum Glucose 186 H 74-106 mg/dL Problem List Altered mental status, general weakness Metabolic encephalopathy Recent acute stroke with left-sided weakness Acute stroke syndrome MRI evident multiple acute strokes (11/08/2024) Pancytopenia/rule out malignancy Anemia Fever/sepsis Septic shock Coronary artery disease with recent CABG Diabetic polyneuropathy Restless leg syndrome Anemia Elevated liver function tests Hodgkin's lymphoma Jaundice Depression Assessment/Plan Monitoring Supportive treatment Psychiatry evaluation ICU care IV antibiotics Gabapentin 200 mg in the evening Physical therapist GI prophylaxis Up to chair He is aware of neuropathy related foot care More recommendation per clinical course This medical document was created using an electronic medical record system with [employer] dictation system. Although this document has been carefully reviewed, there may still be some phonetic and typographical errors. These areas are purely typographical due to imperfections of the software programs, and do not reflect any compromise in the patient's medical care. Prognosis poor Dietary Evaluation Review Comments: 1) Ergocalciferol 50,000IU weekly 2) Jose L 1 pk daily, MVI w/ mineral 1 tab, Vit C 500mg BID, Zinc sulfate 220mg daily x 10 days 3) Advance to [id number] + renal special 80gm protein diet 4) Continue current plan of care Expected Outcomes/Goals: Advance diet to meet at least 75% estimated needs FU 2-3 days Plan discussed with: Other CC Plasma Assessment Blood Product Administration S: 11:05 NIKOLAS PRATT MD Dec 21, 2024 14:56
--- NOTE | 2024-12-21 19:34 | DVHPN2 ---
Progress Note Date Seen: Dec 21, 2024 Has the PT tested + for MRSA If YES, has PT been informed?: No Medical Necessity Reason Pt with a Central, PICC or Fol: Yes The following are medically ne: Pond Catheter Reason for pond catheter: Bladder Retention/Obstruc, Strict I&O Objective vital signs Vital Sign Date Time Temp Pulse Resp B/P (MAP) Pulse Ox O2 Delivery O2 Flow Rate FiO2 12/21/24 18:30 82 18 130/70 (90) 100 12/21/24 17:54 Nasal Cannula* 3 32 12/21/24 17:24 99.9 Total Intake and Output 12/20/24 12/20/24 12/21/24 15:00 23:00 07:00 Intake Total 61.304 ml 51.304 ml 211.304 ml Output Total 20 ml 0 ml Balance 61.304 ml 31.304 ml 211.304 ml medications Current Medications Medications Dose Ordered Sig/Shavon Route Start Time Stop Time Status Last Admin Dose Admin Acetaminophen 650 mg Q6HP PRN PO 12/04/24 03:30 12/21/24 16:24 650 MG Ondansetron HCl 4 mg Q4HP PRN IV 12/04/24 03:30 Diagnostic Test (Pha) 1 strip ACHS 12/04/24 07:00 12/21/24 15:22 1 STRIP Pantoprazole Sodium 40 mg BID IV 12/04/24 06:45 12/21/24 10:58 40 MG Calcium Acetate 1,334 mg TIDWMEALS PO 12/08/24 12:00 12/16/24 12:11 1,334 MG Gabapentin 200 mg HS PO 12/10/24 22:00 12/20/24 23:40 200 MG Nystatin 5 ml QID MT 12/10/24 16:00 12/21/24 16:24 5 ML Daptomycin 0 ml @ 0 mls/hr PER PHARMACY IV 12/10/24 20:30 Daptomycin 500 mg/ Sodium Chloride 50 ml @ 100 mls/hr Q48H IV 12/11/24 15:00 12/21/24 15:22 100 MLS/HR Multivit/Ca Carb/ B Cmplx/FA/Prenat 1 tab DAILY PO 12/12/24 10:00 12/16/24 09:37 1 TAB Enteral Nutritional Formula 27.5 gm DAILY PO 12/12/24 10:00 4/4/25 09:26 27.5 GM Ergocalciferol 50,000 unit Q7D PO 12/12/24 08:45 12/12/24 09:38 50,000 UNIT Enteral Nutritional Formula 240 ml BIDWM PO 12/13/24 08:00 12/17/24 08:21 240 ML Cefepime HCl 50 ml @ 12.5 mls/hr DAILY@2200 IV 12/14/24 22:00 12/20/24 21:57 12.5 MLS/HR Midodrine 15 mg TID@0600,1200,1800 PO 12/15/24 12:00 12/21/24 05:50 15 MG Sodium Chloride 10 ml QSHIFT@ IV 12/16/24 22:00 12/21/24 07:38 10 ML Acetaminophen 325 mg Q6HP PRN [place] 12/17/24 06:45 Epoetin Tonio-epbx 10,000 unit 2XW SC 12/17/24 12:00 Norepinephrine Bitartrate 250 ml @ 0.938 mls/ hr Q24H IV 12/18/24 06:30 Octreotide Acetate 100 mcg TID SUBCUT 12/18/24 14:00 12/21/24 15:22 100 MCG Dopamine HCl/ Dextrose 250 ml @ 6.413 mls/ hr Q24H IV 12/18/24 09:45 12/20/24 20:49 6.413 MLS/HR Citalopram Hydrobromide 10 mg DAILY PO 12/20/24 10:00 Morphine Sulfate 2 mg Q4H PRN IV 12/20/24 15:30 Morphine Sulfate 4 mg Q4HPRN PRN IV 12/20/24 15:30 Enteral Nutritional Formula 1,000 ml 30ML/HR GT 12/20/24 18:00 12/20/24 23:51 1,000 ML laboratory and microbiology Laboratory Tests 12/21/24 04:30 Test 12/21/24 04:30 Range/Units Serum Glucose 186 H 74-106 mg/dL Microbiology Date/Time Source Procedure Growth Status 12/20/24 12:54 Back Gram Stain - Final Resulted 12/20/24 12:54 Back Anaerobic Culture - Preliminary Resulted 12/20/24 12:54 Back Aerobic Culture - Preliminary Resulted 12/12/24 13:20 Stool Stool Culture - Final Complete 12/12/24 13:20 Stool Shiga Toxin I & II - Final Complete 12/11/24 15:31 Sputum Gram Stain - Final Complete 12/11/24 15:31 Sputum Respiratory Culture - Final Complete 12/10/24 10:17 Voided Urine Urine Culture - Final Complete 12/08/24 14:39 Blood Blood Culture - Final NO GROWTH AFTER 5 DAYS OF INCUBATION. Complete Problem List/Assessment/Plan Problem List/Assessment/Plan AFEBRILE VSS S/P LOW BACK WOUND DEBRIDEMENT CONTINUE IV ABX WOUND CARE DRESSING Plan discussed with: Other Dietary Evaluation Review Comments: 1) Ergocalciferol 50,000IU weekly 2) Jose L 1 pk daily, MVI w/ mineral 1 tab, Vit C 500mg BID, Zinc sulfate 220mg daily x 10 days 3) Advance to [id number] + renal special 80gm protein diet 4) Continue current plan of care Expected Outcomes/Goals: Advance diet to meet at least 75% estimated needs FU 2-3 days CC Plasma Assessment Blood Product Administration S: 11:05 SPEEDY DOYLE MD Dec 21, 2024 19:34
[2024-12-21] MEDS: ONDANSETRON HCL 4 MG/2 ML VIAL IV PRN (21:17)
[2024-12-21] MEDS: MORPHINE SULFATE INJ 2 MG/ml SYRG IV PRN (21:20)
[2024-12-21] MEDS: EPOETIN ALFA-EPBX 10,000 UNIT/1ML VIAL SC ONE (21:49)
--- NOTE | 2024-12-21 22:41 | DVHPN2 ---
Progress Note - Dictate Date Seen: Dec 21, 2024 Has the PT tested + for MRSA If YES, has PT been informed?: No Medical Necessity Reason Pt with a Central, PICC or Fol: Yes The following are medically ne: Pond Catheter Reason for pond catheter: Bladder Retention/Obstruc, Strict I&O Subjective Patient seen and examined at bedside. Remains on supplemental oxygen Overnight events reviewed. vital signs Vital Sign Date Time Temp Pulse Resp B/P (MAP) Pulse Ox O2 Delivery O2 Flow Rate FiO2 12/21/24 22:00 19 100 Nasal Cannula* 3 32 12/21/24 22:00 80 115/62 (79) 12/21/24 20:00 98.2 98.2 Total Intake and Output 12/20/24 12/20/24 12/21/24 15:00 23:00 07:00 Intake Total 61.304 ml 51.304 ml 211.304 ml Output Total 20 ml 0 ml Balance 61.304 ml 31.304 ml 211.304 ml medications Current Medications Medications Dose Ordered Sig/Shavon Route Start Time Stop Time Status Last Admin Dose Admin Acetaminophen 650 mg Q6HP PRN PO 12/04/24 03:30 12/21/24 16:24 650 MG Ondansetron HCl 4 mg Q4HP PRN IV 12/04/24 03:30 12/21/24 21:17 4 MG Diagnostic Test (Pha) 1 strip ACHS 12/04/24 07:00 12/21/24 21:55 1 STRIP Pantoprazole Sodium 40 mg BID IV 12/04/24 06:45 12/21/24 21:50 40 MG Calcium Acetate 1,334 mg TIDWMEALS PO 12/08/24 12:00 12/16/24 12:11 1,334 MG Gabapentin 200 mg HS PO 12/10/24 22:00 12/21/24 21:52 200 MG Nystatin 5 ml QID MT 12/10/24 16:00 12/21/24 21:53 5 ML Daptomycin 0 ml @ 0 mls/hr PER PHARMACY IV 12/10/24 20:30 Daptomycin 500 mg/ Sodium Chloride 50 ml @ 100 mls/hr Q48H IV 12/11/24 15:00 12/21/24 15:22 100 MLS/HR Multivit/Ca Carb/ B Cmplx/FA/Prenat 1 tab DAILY PO 12/12/24 10:00 12/16/24 09:37 1 TAB Enteral Nutritional Formula 27.5 gm DAILY PO 12/12/24 10:00 12/14/24 09:26 27.5 GM Ergocalciferol 50,000 unit Q7D PO 12/12/24 08:45 12/12/24 09:38 50,000 UNIT Enteral Nutritional Formula 240 ml BIDWM PO 12/13/24 08:00 12/17/24 08:21 240 ML Cefepime HCl 50 ml @ 12.5 mls/hr DAILY@2200 IV 12/14/24 22:00 12/21/24 21:52 12.5 MLS/HR Midodrine 15 mg TID@0600,1200,1800 PO 12/15/24 12:00 12/21/24 05:50 15 MG Sodium Chloride 10 ml QSHIFT@10,22 IV 12/16/24 22:00 12/21/24 21:53 10 ML Acetaminophen 325 mg Q6HP PRN [place] 12/17/24 06:45 Epoetin Tonio-epbx 10,000 unit 2XW SC 12/17/24 12:00 Norepinephrine Bitartrate 250 ml @ 0.938 mls/ hr Q24H IV 12/18/24 06:30 Octreotide Acetate 100 mcg TID SUBCUT 12/18/24 14:00 12/21/24 21:46 100 MCG Dopamine HCl/ Dextrose 250 ml @ 6.413 mls/ hr Q24H IV 12/18/24 09:45 12/20/24 20:49 6.413 MLS/HR Citalopram Hydrobromide 10 mg DAILY PO 12/20/24 10:00 Morphine Sulfate 2 mg Q4H PRN IV 12/20/24 15:30 12/21/24 21:20 2 MG Morphine Sulfate 4 mg Q4HPRN PRN IV 12/20/24 15:30 Enteral Nutritional Formula 1,000 ml 30ML/HR GT 12/20/24 18:00 12/21/24 22:15 1,000 ML objective Gen.: Patient lying in bed in no apparent distress. On supplemental oxygen. Head: Normocephalic, atraumatic. Eyes: EOMI/PERRLA. Ears: Normal hearing. Normal anatomy. Neck/trachea: Trachea midline, supple. Nose: Normal external anatomy. Mouth: Moist mucous membranes. Chest: Decreased air entry bilaterally. No wheezing or rhonchi. Cardiovascular: Positive S1, positive S2. Regular rate and rhythm. Abdomen: Positive bowel sounds in all 4 quadrants. Soft, non-tender, non- distended. : Deferred. Rectal: Deferred. Skin: Warm, dry. Intact. Extremities: 2+ radial pulses bilaterally. No lower extremity edema. Neuro: Awake, alert, oriented x3. No gross motor or sensory deficits. Cranial nerves II through XII intact. Gait not assessed. laboratory and microbiology Laboratory Tests 12/21/24 04:30 Test 12/21/24 04:30 Range/Units Serum Glucose 186 H 74-106 mg/dL Assessment/Plan Impression: Acute hypoxic respiratory failure Dependence on supplemental oxygen Possible urinary tract infection CAD, s/p 3-vessel CABG. Septic shock Cerebrovascular accident Left pleural effusion Atelectasis Events: Remains on supplemental oxygen, 2 LPM NC Taper O2 as tolerated No distress. Patient w/ jaundice altered level On dopamine at 2 mcg, renally dosed. NG tube in place Status post wound debridement Wound care Hodgkin's lymphoma - awaiting bone marrow biopsy results. Monitor blood pressure Hemodialysis per Nephrology Requiring Levophed during dialysis Monitor renal function. Monitor electrolytes. Supplement as necessary. Nephrology recommendations appreciated Head of bed elevation Aspiration precautions Continue antibiotics WBC trending up at 15.4 Continue antifungal Incentive spirometry Continue PT/OT Accu-Cheks Protonix BID Monitor hemoglobin Monitor platelets d/t thrombocytopenia Plan for hospice evaluation Labs and imaging reviewed. Rest of plan as noted below. Plan: Supplemental oxygen Titrate to keep O2 sats above 92%. Pressors as necessary for hemodynamic support Titrate to keep mean arterial pressure greater than 65 mmHg. Echocardiogram reviewed, notable for EF 50% Cardiology recs appreciated. Continue antibiotics Continue antifungal Incentive spirometry Accu-Cheks, ISS PRN. Pain control Avoid oversedation Monitor renal function. Monitor electrolytes. Supplement as necessary. Monitor ins and outs. Karen for strict ins and outs Plan for hospice evaluation. DVT prophylaxis. Prognosis: Poor given patient's multiple co-morbidities. Condition: Critical Rest of plan per hospitalist and other consultants. A total of 35 minutes of critical care time was spent reviewing the patient record, examining the patient, making a diagnostic and therapeutic plan, discussing this plan with the medical personnel, following up on diagnostic studies and following the patient for clinical stability excluding any and all procedures. At least 50% of this time was spent in direct, [id number] contact. Thank you, Dr. Smith, for allowing me to participate in this patient's care. Further recommendations will depend on the patient's clinical course. Please do not hesitate to contact me if you have any questions or concerns. This medical document was created using an electronic medical record system with [employer] dictation system. Although these documentations are being carefully reviewed, there may still be some phonetic and typographical changes. The errors are purely typographical, due to imperfection on the software program, and do not reflect any compromise in the patient's medical care. Dietary Evaluation Review Comments: 1) Ergocalciferol 50,000IU weekly 2) Jose L 1 pk daily, MVI w/ mineral 1 tab, Vit C 500mg BID, Zinc sulfate 220mg daily x 10 days 3) Advance to [id number] + renal special 80gm protein diet 4) Continue current plan of care Expected Outcomes/Goals: Advance diet to meet at least 75% estimated needs FU 2-3 days Plan discussed with: Other (RN) Critical Care Time(min): 35 CC Plasma Assessment Blood Product Administration S: 11:05 JERAMY CAMARA MD Dec 21, 2024 22:41
[2024-12-22] VITALS (97 sets, daily range): BP systolic 79–174; BP diastolic 41–92; PULSE 72–99; RESP 10–24; TEMP 97.8–101.6; O2SAT 81–100
[2024-12-22 04:38] LABS: Mean Corpuscular Volume 81.7 fL (80.0-100.0)
[2024-12-22 04:42] LABS: Hematocrit 21.9 % (41.0-53.0); Hemoglobin 7.4 g/dL (13.5-17.5); Mean Corpuscular Hemoglobin 27.4 pg (28.0-32.0); Mean Corpuscular Hgb Conc. 33.5 g/dL (32.0-36.0); Red Blood Cells 2.69 10^6/uL (4.5-5.90); Red Cell Distribution Width 18.7 % (11.8-14.3)
[2024-12-22 05:04] LABS: Alanine Aminotransferase 24 U/L (7-40); Anion Gap 13 (5-15); Carbon Dioxide 24 mmol/L (20-31); Potassium 4.2 mmol/L (3.5-5.1)
[2024-12-22 05:50] LABS: BUN/Creatinine Ratio 16.1 (10.0-20.0)
[2024-12-22 05:52] LABS: Alkaline Phosphatase 576 U/L (46-116); Blood Urea Nitrogen 62 mg/dL (9-23); Chloride 97 mmol/L (98-107); Glucose 216 mg/dL (74-106); Sodium 134 mmol/L (136-145)
[2024-12-22 05:53] LABS: Albumin 2.8 g/dL (3.2-4.8); Aspartate Aminotransferase 63 U/L (13-40); Bilirubin, Total 17.3 mg/dL (0.2-1.0); Calcium 6.6 mg/dL (8.7-10.4)
[2024-12-22] MEDS: ACCU-CHEK COMFORT CURVE STRIP VI SCH (06:00)
[2024-12-22] MEDS ORDERED: DEXTROSE (50%) 50ML SYRG IV PRN (06:30)
[2024-12-22 06:59] LABS: Platelet Count (auto) 49 10^3/uL (140-450)
[2024-12-22 07:00] LABS: Basophils % (manual) 0 (0.0-2.0); Blast Cells 0; Eosinophils % (manual) 0 (0-7); Metamyelocytes % 0; Myelocytes % 0; Promyelocytes % 0; Reactive Lymphocytes 0
[2024-12-22 07:02] LABS: Band Neutrophils % (manual) 3; Lymphocytes % (manual) 1 (10.0-50.0); Monocytes % (manual) 3 (0-12); Platelet Estimate Decreased; Smudge Cells 4 /100 WBC
[2024-12-22] MEDS: InsuLIN REG 1unit/0.01ml Soln (100units/ml) SC SCH (07:03)
--- NOTE | 2024-12-22 09:37 | DVHPN2 ---
Progress Note Date Seen: Dec 22, 2024 Has the PT tested + for MRSA If YES, has PT been informed?: No Medical Necessity Reason Pt with a Central, PICC or Fol: Yes The following are medically ne: Pond Catheter Reason for pond catheter: Bladder Retention/Obstruc, Strict I&O Subjective Patient reports: No new complaints Other Systems: Patient seen and examined by myself today in follow-up Objective vital signs Vital Sign Date Time Temp Pulse Resp B/P (MAP) Pulse Ox O2 Delivery O2 Flow Rate FiO2 12/22/24 09:00 83 11 108/62 (77) 100 12/22/24 08:00 100.6 100.6 12/22/24 08:00 Nasal Cannula* 3 32 Total Intake and Output 12/21/24 12/21/24 12/22/24 15:00 23:00 07:00 Intake Total 351.304 ml 241.304 ml 408.992 ml Output Total 10 ml 15 ml Balance 351.304 ml 231.304 ml 393.992 ml medications Current Medications Medications Dose Ordered Sig/Shavon Route Start Time Stop Time Status Last Admin Dose Admin Acetaminophen 650 mg Q6HP PRN PO 12/04/24 03:30 12/22/24 04:21 650 MG Ondansetron HCl 4 mg Q4HP PRN IV 12/04/24 03:30 12/22/24 03:16 4 MG Pantoprazole Sodium 40 mg BID IV 12/04/24 06:45 12/22/24 08:00 40 MG Calcium Acetate 1,334 mg TIDWMEALS PO 12/08/24 12:00 12/22/24 08:01 1,334 MG Gabapentin 200 mg HS PO 12/10/24 22:00 12/21/24 21:52 200 MG Nystatin 5 ml QID MT 12/10/24 16:00 12/21/24 21:53 5 ML Daptomycin 500 mg/ Sodium Chloride 50 ml @ 100 mls/hr Q48H IV 12/11/24 15:00 12/21/24 15:22 100 MLS/HR Multivit/Ca Carb/ B Cmplx/FA/Prenat 1 tab DAILY PO 12/12/24 10:00 12/22/24 08:01 1 TAB Enteral Nutritional Formula 27.5 gm DAILY PO 12/12/24 10:00 12/14/24 09:26 27.5 GM Ergocalciferol 50,000 unit Q7D PO 12/12/24 08:45 12/12/24 09:38 50,000 UNIT Enteral Nutritional Formula 240 ml BIDWM PO 12/13/24 08:00 12/17/24 08:21 240 ML Cefepime HCl 50 ml @ 12.5 mls/hr DAILY@2200 IV 12/14/24 22:00 12/21/24 21:52 12.5 MLS/HR Midodrine 15 mg TID@0600,1200,1800 PO 12/15/24 12:00 12/22/24 05:52 15 MG Sodium Chloride 10 ml QSHIFT@10,22 IV 12/16/24 22:00 12/22/24 08:01 10 ML Acetaminophen 325 mg Q6HP PRN [place] 12/17/24 06:45 Epoetin Tonio-epbx 10,000 unit 2XW SC 12/17/24 12:00 Norepinephrine Bitartrate 250 ml @ 0.938 mls/ hr Q24H IV 12/18/24 06:30 12/22/24 05:42 0.938 MLS/HR Octreotide Acetate 100 mcg TID SUBCUT 12/18/24 14:00 12/22/24 05:52 100 MCG Dopamine HCl/ Dextrose 250 ml @ 6.413 mls/ hr Q24H IV 12/18/24 09:45 12/22/24 03:59 6.413 MLS/HR Citalopram Hydrobromide 10 mg DAILY PO 12/20/24 10:00 12/22/24 08:01 10 MG Morphine Sulfate 2 mg Q4H PRN IV 12/20/24 15:30 12/22/24 03:15 2 MG Morphine Sulfate 4 mg Q4HPRN PRN IV 12/20/24 15:30 Enteral Nutritional Formula 1,000 ml 30ML/HR GT 12/20/24 18:00 12/21/24 22:15 1,000 ML Diagnostic Test (Pha) 1 strip Q6HR 12/22/24 06:00 12/22/24 06:00 1 STRIP Insulin Human Regular Q6HR SC 12/22/24 06:00 12/22/24 07:03 4 UNITS Dextrose 50 ml UD PRN IV 12/22/24 06:30 Examination: LUNGS:Normal, CVS:Normal, MSK:Normal laboratory and microbiology Laboratory Tests 12/22/24 04:15 Test 12/22/24 04:15 Range/Units Serum Glucose 216 H 74-106 mg/dL Microbiology Date/Time Source Procedure Growth Status 12/20/24 12:54 Back Gram Stain - Final Resulted 12/20/24 12:54 Back Anaerobic Culture - Preliminary Resulted 12/20/24 12:54 Back Aerobic Culture - Preliminary Resulted 12/12/24 13:20 Stool Stool Culture - Final Complete 12/12/24 13:20 Stool Shiga Toxin I & II - Final Complete 12/11/24 15:31 Sputum Gram Stain - Final Complete 12/11/24 15:31 Sputum Respiratory Culture - Final Complete 12/10/24 10:17 Voided Urine Urine Culture - Final Complete 12/08/24 14:39 Blood Blood Culture - Final NO GROWTH AFTER 5 DAYS OF INCUBATION. 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 hemodialysis s/p BM biopsy pending results and Lymph node biopsy showing Hodgkin's lymphoma s/p tunneled catheter for dialysis Low-dose dopamine Octreotide IV Levophed for blood pressure support We will continue to follow up I discussed my plan of care with and the primary nurse at the bedside Plan discussed with: Spouse, Other (Nurse) Dietary Evaluation Review Comments: 1) Ergocalciferol 50,000IU weekly 2) Jose L 1 pk daily, MVI w/ mineral 1 tab, Vit C 500mg BID, Zinc sulfate 220mg daily x 10 days 3) Advance to [id number] + renal special 80gm protein diet 4) Continue current plan of care Expected Outcomes/Goals: Advance diet to meet at least 75% estimated needs FU 2-3 days CC Plasma Assessment Blood Product Administration S: 11:05 RITA SANDS MD Dec 22, 2024 09:37
--- NOTE | 2024-12-22 11:05 | DVHPN2 ---
Progress Note Date Seen: Dec 22, 2024 Has the PT tested + for MRSA If YES, has PT been informed?: No Medical Necessity Reason Pt with a Central, PICC or Fol: Yes The following are medically ne: Pond Catheter Reason for pond catheter: Bladder Retention/Obstruc, Strict I&O Objective vital signs Vital Sign Date Time Temp Pulse Resp B/P (MAP) Pulse Ox O2 Delivery O2 Flow Rate FiO2 12/22/24 10:15 99.1 74 12 90/52 (65) 100 99.1 12/22/24 09:40 Nasal Cannula* 3 32 Total Intake and Output 12/21/24 12/21/24 12/22/24 15:00 23:00 07:00 Intake Total 351.304 ml 241.304 ml 408.992 ml Output Total 10 ml 15 ml Balance 351.304 ml 231.304 ml 393.992 ml medications Current Medications Medications Dose Ordered Sig/Shavon Route Start Time Stop Time Status Last Admin Dose Admin Acetaminophen 650 mg Q6HP PRN PO 12/04/24 03:30 12/22/24 04:21 650 MG Ondansetron HCl 4 mg Q4HP PRN IV 12/04/24 03:30 12/22/24 03:16 4 MG Pantoprazole Sodium 40 mg BID IV 12/04/24 06:45 12/22/24 08:00 40 MG Calcium Acetate 1,334 mg TIDWMEALS PO 12/08/24 12:00 12/22/24 08:01 1,334 MG Gabapentin 200 mg HS PO 12/10/24 22:00 12/21/24 21:52 200 MG Nystatin 5 ml QID MT 12/10/24 16:00 12/21/24 21:53 5 ML Daptomycin 500 mg/ Sodium Chloride 50 ml @ 100 mls/hr Q48H IV 12/11/24 15:00 12/21/24 15:22 100 MLS/HR Multivit/Ca Carb/ B Cmplx/FA/Prenat 1 tab DAILY PO 12/12/24 10:00 12/22/24 08:01 1 TAB Enteral Nutritional Formula 27.5 gm DAILY PO 12/12/24 10:00 12/14/24 09:26 27.5 GM Ergocalciferol 50,000 unit Q7D PO 12/12/24 08:45 12/12/24 09:38 50,000 UNIT Enteral Nutritional Formula 240 ml BIDWM PO 12/13/24 08:00 12/17/24 08:21 240 ML Cefepime HCl 50 ml @ 12.5 mls/hr DAILY@2200 IV 12/14/24 22:00 12/21/24 21:52 12.5 MLS/HR Midodrine 15 mg TID@0600,1200,1800 PO 12/15/24 12:00 12/22/24 05:52 15 MG Sodium Chloride 10 ml QSHIFT@10,22 IV 12/16/24 22:00 12/22/24 08:01 10 ML Acetaminophen 325 mg Q6HP PRN [place] 12/17/24 06:45 Epoetin Tonio-epbx 10,000 unit 2XW SC 12/17/24 12:00 Norepinephrine Bitartrate 250 ml @ 0.938 mls/ hr Q24H IV 12/18/24 06:30 12/22/24 05:42 0.938 MLS/HR Octreotide Acetate 100 mcg TID SUBCUT 12/18/24 14:00 12/22/24 05:52 100 MCG Dopamine HCl/ Dextrose 250 ml @ 6.413 mls/ hr Q24H IV 12/18/24 09:45 12/22/24 03:59 6.413 MLS/HR Citalopram Hydrobromide 10 mg DAILY PO 12/20/24 10:00 12/22/24 08:01 10 MG Morphine Sulfate 2 mg Q4H PRN IV 12/20/24 15:30 12/22/24 03:15 2 MG Morphine Sulfate 4 mg Q4HPRN PRN IV 12/20/24 15:30 Enteral Nutritional Formula 1,000 ml 30ML/HR GT 12/20/24 18:00 12/21/24 22:15 1,000 ML Diagnostic Test (Pha) 1 strip Q6HR 12/22/24 06:00 12/22/24 06:00 1 STRIP Insulin Human Regular Q6HR SC 12/22/24 06:00 12/22/24 07:03 4 UNITS Dextrose 50 ml UD PRN IV 12/22/24 06:30 laboratory and microbiology Laboratory Tests 12/22/24 04:15 Test 12/22/24 04:15 Range/Units Serum Glucose 216 H 74-106 mg/dL Microbiology Date/Time Source Procedure Growth Status 12/20/24 12:54 Back Gram Stain - Final Resulted 12/20/24 12:54 Back Anaerobic Culture - Preliminary Resulted 12/20/24 12:54 Back Aerobic Culture - Preliminary Resulted 12/12/24 13:20 Stool Stool Culture - Final Complete 12/12/24 13:20 Stool Shiga Toxin I & II - Final Complete 12/11/24 15:31 Sputum Gram Stain - Final Complete 12/11/24 15:31 Sputum Respiratory Culture - Final Complete 12/10/24 10:17 Voided Urine Urine Culture - Final Complete 12/08/24 14:39 Blood Blood Culture - Final NO GROWTH AFTER 5 DAYS OF INCUBATION. Complete Problem List/Assessment/Plan Problem List/Assessment/Plan AFEBRILE VSS S/P LOW BACK WOUND DEBRIDEMENT CONTINUE IV ABX WOUND CARE DRESSING CHANGE INDICATED SIDE TO SIDE POSITIONING OWEN FAMILY AND NURSE AT BEDSIDE CONSULT WOUND CARE NURSE Plan discussed with: Patient Dietary Evaluation Review Comments: 1) Ergocalciferol 50,000IU weekly 2) Jose L 1 pk daily, MVI w/ mineral 1 tab, Vit C 500mg BID, Zinc sulfate 220mg daily x 10 days 3) Advance to [id number] + renal special 80gm protein diet 4) Continue current plan of care Expected Outcomes/Goals: Advance diet to meet at least 75% estimated needs FU 2-3 days CC Plasma Assessment Blood Product Administration S: 11:05 SPEEDY DOYLE MD Dec 22, 2024 11:05
[2024-12-22] MEDS: LACTULOSE 20Gm/30ML SOLN PO ONE (12:28)
--- NOTE | 2024-12-22 13:24 | DVHPN2 ---
Progress Note - Dictate Date Seen: Dec 22, 2024 Has the PT tested + for MRSA If YES, has PT been informed?: No Medical Necessity Reason Pt with a Central, PICC or Fol: Yes The following are medically ne: Pond Catheter Reason for pond catheter: Bladder Retention/Obstruc, Strict I&O Subjective *Pruner rounds* Patient seen and examined Overnight events reviewed vital signs Vital Sign Date Time Temp Pulse Resp B/P (MAP) Pulse Ox O2 Delivery O2 Flow Rate FiO2 12/22/24 12:30 78 12 82/54 (63) 100 12/22/24 12:03 Nasal Cannula* 3 32 12/22/24 12:00 98.6 98.6 Total Intake and Output 12/21/24 12/21/24 12/22/24 15:00 23:00 07:00 Intake Total 351.304 ml 241.304 ml 408.992 ml Output Total 10 ml 15 ml Balance 351.304 ml 231.304 ml 393.992 ml medications Current Medications Medications Dose Ordered Sig/Shavon Route Start Time Stop Time Status Last Admin Dose Admin Acetaminophen 650 mg Q6HP PRN PO 12/04/24 03:30 12/22/24 04:21 650 MG Ondansetron HCl 4 mg Q4HP PRN IV 12/04/24 03:30 12/22/24 03:16 4 MG Pantoprazole Sodium 40 mg BID IV 12/04/24 06:45 12/22/24 08:00 40 MG Calcium Acetate 1,334 mg TIDWMEALS PO 12/08/24 12:00 12/22/24 12:28 1,334 MG Gabapentin 200 mg HS PO 12/10/24 22:00 12/21/24 21:52 200 MG Daptomycin 500 mg/ Sodium Chloride 50 ml @ 100 mls/hr Q48H IV 12/11/24 15:00 12/21/24 15:22 100 MLS/HR Multivit/Ca Carb/ B Cmplx/FA/Prenat 1 tab DAILY PO 12/12/24 10:00 12/22/24 08:01 1 TAB Enteral Nutritional Formula 27.5 gm DAILY PO 12/12/24 10:00 12/14/24 09:26 27.5 GM Ergocalciferol 50,000 unit Q7D PO 12/12/24 08:45 12/12/24 09:38 50,000 UNIT Enteral Nutritional Formula 240 ml BIDWM PO 12/13/24 08:00 12/17/24 08:21 240 ML Cefepime HCl 50 ml @ 12.5 mls/hr DAILY@2200 IV 12/14/24 22:00 12/21/24 21:52 12.5 MLS/HR Midodrine 15 mg TID@0600,1200,1800 PO 12/15/24 12:00 12/22/24 12:28 15 MG Sodium Chloride 10 ml QSHIFT@10,22 IV 12/16/24 22:00 12/22/24 08:01 10 ML Acetaminophen 325 mg Q6HP PRN SC 12/17/24 06:45 Epoetin Tonio-epbx 10,000 unit 2XW SC 12/17/24 12:00 Norepinephrine Bitartrate 250 ml @ 0.938 mls/ hr Q24H IV 12/18/24 06:30 12/22/24 05:42 0.938 MLS/HR Octreotide Acetate 100 mcg TID SUBCUT 12/18/24 14:00 12/22/24 12:28 100 MCG Dopamine HCl/ Dextrose 250 ml @ 6.413 mls/ hr Q24H IV 12/18/24 09:45 12/22/24 03:59 6.413 MLS/HR Citalopram Hydrobromide 10 mg DAILY PO 12/20/24 10:00 12/22/24 08:01 10 MG Morphine Sulfate 2 mg Q4H PRN IV 12/20/24 15:30 12/22/24 03:15 2 MG Morphine Sulfate 4 mg Q4HPRN PRN IV 12/20/24 15:30 Enteral Nutritional Formula 1,000 ml 30ML/HR GT 12/20/24 18:00 12/21/24 22:15 1,000 ML Diagnostic Test (Pha) 1 strip Q6HR 12/22/24 06:00 12/22/24 12:28 1 STRIP Insulin Human Regular Q6HR SC 12/22/24 06:00 12/22/24 12:36 4 UNITS Dextrose 50 ml UD PRN IV 12/22/24 06:30 Lactulose 30 ml BID PO 12/22/24 22:00 Meropenem 50 ml @ 17 mls/hr DAILY IV 12/23/24 10:00 Daptomycin / Sodium Chloride 50 ml @ 100 mls/hr DAILY IV 12/23/24 10:00 UNV laboratory and microbiology Laboratory Tests 12/22/24 04:15 Test 12/22/24 04:15 Range/Units Serum Glucose 216 H 74-106 mg/dL Assessment/Plan Impression Acute hypoxemic respiratory failure Altered mental status ESRD on HD Sepsis Patient seen and examined in LINDA Events Low oxygen requirements On 3 liters nasal cannula On pressors for hemodynamic support Labs and imaging reviewed Chest x-ray shows reduced lung volumes ? right lower lobe collapse Management Supplemental oxygen Titrate to maintain sats 90% or above Incentive spirometry Continue antibiotics F/u cultures Bronchodilators Monitor renal function HD as per nephrology Management deferred Monitor electrolytes Supplement as needed Pressors as needed for hemodynamic support To maintain a mean arterial pressure of 65 mmHg Patient at risk for endotracheal intubation Family at the bedside, updated Family adamant regarding full code status DVT prophylaxis Critical care time 35 minutes Dietary Evaluation Review Comments: 1) Ergocalciferol 50,000IU weekly 2) Jose L 1 pk daily, MVI w/ mineral 1 tab, Vit C 500mg BID, Zinc sulfate 220mg daily x 10 days 3) Advance to [id number] + renal special 80gm protein diet 4) Continue current plan of care Expected Outcomes/Goals: Advance diet to meet at least 75% estimated needs FU 2-3 days Plan discussed with: Patient CC Plasma Assessment Blood Product Administration S: 11:05 JES ONEILL MD Dec 22, 2024 13:24
[2024-12-22] MEDS ORDERED: DAPTOmycin 6MG/KG PER PHARMACY 0 MG IV SCH (14:00)
--- NOTE | 2024-12-22 18:06 | DVHPN2 ---
Assessment/Plan Assessment/Plan Progress note 59 M with a past medical history of coronary artery disease status post CABG in October 2024, ischemic stroke oct 2024, status post bed bound and chronic indwelling Pond, hypertension, and hyperlipidemia. He was brought to the ER by the family with a chief complaint of heavy breathing, fever, chills, and anuria for the past 3 days. Per the daughter at bedside, the patient had never followed up with urology or cardiology after he was discharged from this facility on 11/07/24. He usually makes 1600 cc of urine a day. Per daughter, patient has a wound in his back and is also draining a white pus-like substance. Patient also reported dysuria and abdominal discomfort. He also reports heavy breathing and mild nonproductive cough. On arrival, patient was febrile at 101.2F, tachycardic, blood pressure 144/77, and requiring 4 L oxygen supplementation. White cell count was 3.6, hemoglobin 8.8, and hematocrit 23. Patient had hyperkalemia, potassium was 6 which downtrended to 5.4. Creatinine was 2.9 and BUN 77. Patient's Pond catheter was removed in ED after being in place for more than a month, the patient does not urinate on his own, bladder scan showed empty bladder, nephrology was consulted. Chest x-ray shows bibasilar consolidation. The patient has mildly elevated transaminases. Cardiology consulted given CT fi ndings of substernal soft tissue density: new echo ordered, azithromycin was added to cover atypicals and hyperkalemia protocol was done, patient is having febrile neutropenia, CT scan of abdomen showed right groin lymphadenopathy, lymphadenopathy biopsy was done. 1 RBC was transfused per cardiology. 12/06/24 at 5:30 pm, patient had an episode of AMS, weakness, and hypotension, increased left leg weakness and left facial droop. CT scan negative for stroke or hemorrhage, patient was placed on Levophed and weaned off at 8 pm, fluids IV 100 cc during the night, today x-ray showed mild congestion. IV fluids reduced to 60cc and furosemide IV was started. New MRI showed multiple small strokes in different places; probably cardiembolic etiology. Neurology Dr. Cabral, stated no need for CTA or thrombectomy, also transfer to [facility] was planned but according to the center he had his CABG, patient can be managed in [facility]. Also, nephrology consulted. EMILY was ordered and will be done today. Worsening renal function; nephrology will discuss possible hemodialysis with the patient and his family. EMILY negative, neupogen started, patient had fever last night, new pancultures, renal function is trending high, dialysis catheter placed on the left, new K normal on place, possible HD. ID was consulted, vancomycin was changed for daptomycin, further studies were ordered to study possible source of infection, WBC is trending high, last fever 12/10 4pm, HD was done but patient needed levophed 2mcg, bilirubin is trending high, EPO was started by Nephro. lymph node biopsy: Hodgkin lymphoma, diagnosis disccused with family, patient still having fevers and diarrhea, necrotic ulcer debrided seen by me today during rounds, mental status unchanged. gbus with thick wall, still spiking fever. considering acute cholangitis, GI consult placed, likely needs IR vs HLOC for ERCP, covered with abx. physical exam alert oriented x3 clear breath sounds JVD clavicles s1 s2 rrr no murmur abdomen soft nontender trace LE edema R IJ permacath labs ekg imaging reviewed assessment and plan acute metabolic / toxic encephalopathy, uremic vs hepatic vs septic multiple CVA with residual stroke recurdescence shock, multifactorial acute on chronic diastolic heart failure HFpEF CAD s/p CABG acute hypoxic RF PNA gp vs gn atelectasis b/l PLEF cirrhosis gallblader polyps hyperbilirubinemia new diagnosed hodgkin lymphoma normoctyic anemia febrile neutropenia thrombocytopenia GOPAL ATN on CKD now ESRD on HD hyperkalemia secondary hyperparathyroidism stage III decub ulcer s/p debridement cholangitis? 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 GBUS hold telepsych for now mittens aspiration precaution delirium precaution low treshold for intubation decub ulcer precaution start TF no TPN high risk of fungemia GI consult lines R IJ permacath PICC line pond keep K4 Mg 2 diet TF dvt ppx lovenox gi ppx no indication critical care time spent 60 minutes Plan discussed with: Spouse My Orders Orders - RADHA ROWLEY MD Procedure Category Date Status Time Lactulose Oral PHA 12/22/24 In Process 22:00 * Gi Dvh Survey Supervisor CONS 4/12/25 Transmitted 11:06 Blood Culture JOSE LUIS 12/22/24 In Process 11:11 Meropenem 500mg Ivpb PHA 12/23/24 In Process (Merrem 500mg/Ns) 10:00 Complete Blood Count LAB 12/23/24 Verified 04:00 Comprehensive LAB 12/23/24 Verified Metabolic Panel 04:00 Magnesium LAB 12/23/24 Verified 04:00 Phosphorus LAB 12/23/24 Verified 04:00 Cleanse Wound With DUGLAS 12/22/24 In Process Wound Clean 15:31 Date of Service: Dec 22, 2024 Billing Provider: RADHA ROWLEY MD Common Visit Codes: 80165-[id number] CARE 30-74 MIN RADHA ROWLEY MD Dec 22, 2024 18:06
--- NOTE | 2024-12-22 20:25 | DVHPN2 ---
Consult Progress Note Date Seen: Dec 14, 2024 Subjective Patient reports: Feels better (no diarrhea or rash) Objective vital signs Vital Sign Date Time Temp Pulse Resp B/P (MAP) Pulse Ox O2 Delivery O2 Flow Rate FiO2 12/22/24 18:15 75 11 99/50 (66) 100 12/22/24 17:42 Nasal Cannula* 3 32 12/22/24 17:30 99.5 99.5 Total Intake and Output 12/21/24 12/21/24 12/22/24 14:59 22:59 06:59 Intake Total 351.304 ml 241.304 ml 407.117 ml Output Total 10 ml 15 ml Balance 351.304 ml 231.304 ml 392.117 ml medications Current Medications Medications Dose Ordered Sig/Shavon Route Start Time Stop Time Status Last Admin Dose Admin Acetaminophen 650 mg Q6HP PRN PO 12/04/24 03:30 12/22/24 04:21 650 MG Ondansetron HCl 4 mg Q4HP PRN IV 12/04/24 03:30 12/22/24 03:16 4 MG Pantoprazole Sodium 40 mg BID IV 12/04/24 06:45 12/22/24 08:00 40 MG Calcium Acetate 1,334 mg TIDWMEALS PO 12/08/24 12:00 12/22/24 16:17 1,334 MG Gabapentin 200 mg HS PO 12/10/24 22:00 12/21/24 21:52 200 MG Multivit/Ca Carb/ B Cmplx/FA/Prenat 1 tab DAILY PO 12/12/24 10:00 12/22/24 08:01 1 TAB Enteral Nutritional Formula 27.5 gm DAILY PO 12/12/24 10:00 12/14/24 09:26 27.5 GM Ergocalciferol 50,000 unit Q7D PO 12/12/24 08:45 12/12/24 09:38 50,000 UNIT Enteral Nutritional Formula 240 ml BIDWM PO 12/13/24 08:00 12/17/24 08:21 240 ML Midodrine 15 mg TID@0600,1200,1800 PO 12/15/24 12:00 12/22/24 16:18 15 MG Sodium Chloride 10 ml QSHIFT@ IV 12/16/24 22:00 12/22/24 08:01 10 ML Acetaminophen 325 mg Q6HP PRN MI 12/17/24 06:45 Epoetin Tonio-epbx 10,000 unit 2XW SC 12/17/24 12:00 Norepinephrine Bitartrate 250 ml @ 0.938 mls/ hr Q24H IV 12/18/24 06:30 12/22/24 05:42 0.938 MLS/HR Octreotide Acetate 100 mcg TID SUBCUT 12/18/24 14:00 12/22/24 12:28 100 MCG Dopamine HCl/ Dextrose 250 ml @ 6.413 mls/ hr Q24H IV 12/18/24 09:45 12/22/24 03:59 6.413 MLS/HR Citalopram Hydrobromide 10 mg DAILY PO 12/20/24 10:00 12/22/24 08:01 10 MG Morphine Sulfate 2 mg Q4H PRN IV 12/20/24 15:30 12/22/24 03:15 2 MG Morphine Sulfate 4 mg Q4HPRN PRN IV 12/20/24 15:30 Enteral Nutritional Formula 1,000 ml 30ML/HR GT 12/20/24 18:00 12/21/24 22:15 1,000 ML Diagnostic Test (Pha) 1 strip Q6HR 12/22/24 06:00 12/22/24 16:18 1 STRIP Insulin Human Regular Q6HR SC 12/22/24 06:00 12/22/24 16:19 2 UNITS Dextrose 50 ml UD PRN IV 12/22/24 06:30 Lactulose 30 ml BID PO 12/22/24 22:00 Meropenem 50 ml @ 17 mls/hr DAILY IV 12/23/24 10:00 Daptomycin 0 ml @ 0 mls/hr PER PHARMACY IV 12/22/24 14:00 laboratory and microbiology Laboratory Tests 12/22/24 04:15 Test 12/22/24 04:15 Range/Units Serum Glucose 216 H 74-106 mg/dL Problem List/Assessment/Plan Problem List/Assessment/Plan Physical Exam Patient lying in bed, in no acute distress General: Lucid, afebrile, mucosae are moist. Mucositis of tongue Cardiovascular: Normal S1 and S2. No murmurs, gallops or rubs. Sternotomy is stable, with no secretions or erythema, no cracking Respiratory: Normal ventilation mechanics. Clear lung sounds on auscultation. With requirement of nasal cannula at 4 liters/minute Abdomen: Soft, nontender, no organomegaly, normal bowel sounds MSK/skin: Mobilizes 4 limbs. Skin is dry and warm. Decubitus ulcer grade 3, with mild yellow-greenish secretion Neurological: Oriented in 3 spheres. Presents motor weakness of four limbs predominantly on right side, no motor no sensitive deficits. Bradypsychia. Pupils are isocoric and reactive Assessment Febrile neutropenia Questionable typhlitis Hodgkin lymphoma Rule out opportunistic infection Ruled out cholangitis Rule out mediastinitis Transaminitis Ruled out hemolysis Multiple CVAs - Ruled out infective endocarditis GOPAL hemodynamically mediated on CKD - currently on hemodialysis Pancytopenia - status post lymph node resection and bone marrow biopsy (rule out malignancy) Coronary artery disease status post triple-vessel CABG complicated with cardiac arrest and multiple strokes Decubitus ulcer - present on admission 12/14: on/off levophed, leukocytosis is improving, Plan/Recommendation Ordered QuantiFERON (tuberculosis suspicion is low), HIV (negative), cocci serology, Aspergillus and histoplasmosis antibodies, wound culture (preliminary yeast, Streptococcus viridans and Enterococcus), and sputum culture (normal oropharyngeal la). All three blood cultures sets negative at the moment. Urine culture negative. MRSA swabs were negative. Low probability of MRSA pneumonia. If considering infection source, high suspicion of neutropenic enterocolitis/typhlitis. Per primary team, lymph node biopsy revealed classic Hodgkin lymphoma. Heme oncologist specialist on board. We will continue empiric IV antibiotics (cefepime, daptomycin and micafungin, previously on meropenem). De-escalated meropenem to cefepime to reduce risk of carbapenem resistance Currently patient is on meropenem, daptomycin (to cover MRSA sepsis, not pneumonia), and micafungin. May consider switching to voriconazole depending on results of fungal serology Positive GGT (approximately 400), elevated alkaline phosphate probable biliary origin. MRCP ruled out bile duct or gallbladder distention, evidence trace ascites and splenomegaly. Negative direct Farrukh and haptoglobin, ruled out hemolysis Mediastinitis still not ruled out due to imaging without IV contrast, but diagnosis is highly unlikely due to stable sternotomy with no presence of secretion. Biopsy of lymph node showed activated T lymphocytes (nonconclusive). Pending bone marrow biopsy results Appreciate input of neurologist, instrument repair specialist, delivery analyst and rn renal specialist. Evaluate continuing DAPT per instrument repair specialist recommendation Rest of recommendations per primary team. Discussed plan with Dr. Reeder, patient and nurses: Have ordered complementary study for opportunistic infections, mostly negative, some pending. Patient is currently under broad spectrum empiric IV antibiotics and antifungal medication (Cefepime, daptomycin and micafungin), we will modify antibiotic treatment as complementary workup is resulted. Lymph node biopsy shows probable classic Hodgkin lymphoma, Heme-Onc input appreciated. Patient has poor prognosis Plan discussed with: Patient Dietary Evaluation Review Comments: 1) Ergocalciferol 50,000IU weekly 2) Jose L 1 pk daily, MVI w/ mineral 1 tab, Vit C 500mg BID, Zinc sulfate 220mg daily x 10 days 3) Advance to [id number] + renal special 80gm protein diet 4) Continue current plan of care Expected Outcomes/Goals: Advance diet to meet at least 75% estimated needs FU 2-3 days CC Plasma Assessment Blood Product Administration S: 11:05 MARC REEDER MD Dec 22, 2024 20:25
--- NOTE | 2024-12-22 20:37 | DVHPN2 ---
Consult Progress Note Date Seen: Dec 15, 2024 Subjective Patient reports: Feels better (worsening hypotension, patient switched back to meropenem) Objective vital signs Vital Sign Date Time Temp Pulse Resp B/P (MAP) Pulse Ox O2 Delivery O2 Flow Rate FiO2 12/22/24 18:15 75 11 99/50 (66) 100 12/22/24 17:42 Nasal Cannula* 3 32 12/22/24 17:30 99.5 99.5 Total Intake and Output 12/21/24 12/21/24 12/22/24 14:59 22:59 06:59 Intake Total 351.304 ml 241.304 ml 407.117 ml Output Total 10 ml 15 ml Balance 351.304 ml 231.304 ml 392.117 ml medications Current Medications Medications Dose Ordered Sig/Shavon Route Start Time Stop Time Status Last Admin Dose Admin Acetaminophen 650 mg Q6HP PRN PO 12/04/24 03:30 12/22/24 04:21 650 MG Ondansetron HCl 4 mg Q4HP PRN IV 12/04/24 03:30 12/22/24 03:16 4 MG Pantoprazole Sodium 40 mg BID IV 12/04/24 06:45 12/22/24 08:00 40 MG Calcium Acetate 1,334 mg TIDWMEALS PO 12/08/24 12:00 12/22/24 16:17 1,334 MG Gabapentin 200 mg HS PO 12/10/24 22:00 12/21/24 21:52 200 MG Multivit/Ca Carb/ B Cmplx/FA/Prenat 1 tab DAILY PO 12/12/24 10:00 12/22/24 08:01 1 TAB Enteral Nutritional Formula 27.5 gm DAILY PO 12/12/24 10:00 12/14/24 09:26 27.5 GM Ergocalciferol 50,000 unit Q7D PO 12/12/24 08:45 12/12/24 09:38 50,000 UNIT Enteral Nutritional Formula 240 ml BIDWM PO 12/13/24 08:00 12/17/24 08:21 240 ML Midodrine 15 mg TID@0600,1200,1800 PO 12/15/24 12:00 12/22/24 16:18 15 MG Sodium Chloride 10 ml QSHIFT@ IV 12/16/24 22:00 12/22/24 08:01 10 ML Acetaminophen 325 mg Q6HP PRN SC 12/17/24 06:45 Epoetin Tonio-epbx 10,000 unit 2XW SC 12/17/24 12:00 Norepinephrine Bitartrate 250 ml @ 0.938 mls/ hr Q24H IV 12/18/24 06:30 12/22/24 05:42 0.938 MLS/HR Octreotide Acetate 100 mcg TID SUBCUT 12/18/24 14:00 12/22/24 12:28 100 MCG Dopamine HCl/ Dextrose 250 ml @ 6.413 mls/ hr Q24H IV 12/18/24 09:45 12/22/24 03:59 6.413 MLS/HR Citalopram Hydrobromide 10 mg DAILY PO 12/20/24 10:00 12/22/24 08:01 10 MG Morphine Sulfate 2 mg Q4H PRN IV 12/20/24 15:30 12/22/24 03:15 2 MG Morphine Sulfate 4 mg Q4HPRN PRN IV 12/20/24 15:30 Enteral Nutritional Formula 1,000 ml 30ML/HR GT 12/20/24 18:00 12/21/24 22:15 1,000 ML Diagnostic Test (Pha) 1 strip Q6HR 12/22/24 06:00 12/22/24 16:18 1 STRIP Insulin Human Regular Q6HR SC 12/22/24 06:00 12/22/24 16:19 2 UNITS Dextrose 50 ml UD PRN IV 12/22/24 06:30 Lactulose 30 ml BID PO 12/22/24 22:00 Meropenem 50 ml @ 17 mls/hr DAILY IV 12/23/24 10:00 Daptomycin 0 ml @ 0 mls/hr PER PHARMACY IV 12/22/24 14:00 laboratory and microbiology Laboratory Tests 12/22/24 04:15 Test 12/22/24 04:15 Range/Units Serum Glucose 216 H 74-106 mg/dL Problem List/Assessment/Plan Problem List/Assessment/Plan Physical Exam Patient lying in bed, in no acute distress General: Lucid, afebrile, mucosae are moist. Mucositis of tongue Cardiovascular: Normal S1 and S2. No murmurs, gallops or rubs. Sternotomy is stable, with no secretions or erythema, no cracking Respiratory: Normal ventilation mechanics. Clear lung sounds on auscultation. With requirement of nasal cannula at 4 liters/minute Abdomen: Soft, nontender, no organomegaly, normal bowel sounds MSK/skin: Mobilizes 4 limbs. Skin is dry and warm. Decubitus ulcer grade 3, with mild yellow-greenish secretion Neurological: Oriented in 3 spheres. Presents motor weakness of four limbs predominantly on right side, no motor no sensitive deficits. Bradypsychia. Pupils are isocoric and reactive Assessment Febrile neutropenia Questionable typhlitis Hodgkin lymphoma Rule out opportunistic infection Ruled out cholangitis Rule out mediastinitis Transaminitis Ruled out hemolysis Multiple CVAs - Ruled out infective endocarditis GOPAL hemodynamically mediated on CKD - currently on hemodialysis Pancytopenia - status post lymph node resection and bone marrow biopsy (rule out malignancy) Coronary artery disease status post triple-vessel CABG complicated with cardiac arrest and multiple strokes Decubitus ulcer - present on admission 12/14: on/off levophed, leukocytosis is improving, 12/15: rising levophed needs Plan/Recommendation Ordered QuantiFERON (tuberculosis suspicion is low), HIV (negative), cocci serology, Aspergillus and histoplasmosis antibodies, wound culture (preliminary yeast, Streptococcus viridans and Enterococcus), and sputum culture (normal oropharyngeal la). All three blood cultures sets negative at the moment. Urine culture negative. MRSA swabs were negative. Low probability of MRSA pneumonia. If considering infection source, high suspicion of neutropenic enterocolitis/typhlitis. Per primary team, lymph node biopsy revealed classic Hodgkin lymphoma. Heme oncologist specialist on board. We will continue empiric IV antibiotics (meropenem, daptomycin, and micafungin Currently patient is on meropenem, daptomycin (to cover MRSA sepsis, not pneumonia), and micafungin. May consider switching to voriconazole depending on results of fungal serology Positive GGT (approximately 400), elevated alkaline phosphate probable biliary origin. MRCP ruled out bile duct or gallbladder distention, evidence trace ascites and splenomegaly. Negative direct Farrukh and haptoglobin, ruled out hemolysis Mediastinitis still not ruled out due to imaging without IV contrast, but diagnosis is highly unlikely due to stable sternotomy with no presence of secretion. Biopsy of lymph node showed activated T lymphocytes (nonconclusive). Pending bone marrow biopsy results Appreciate input of neurologist, manager mobility, reinsurance claim analyst and brain picker specialist. Evaluate continuing DAPT per manager mobility recommendation Rest of recommendations per primary team. Discussed plan with Dr. Reeder, patient and nurses: Have ordered complementary study for opportunistic infections, mostly negative, some pending. Patient is currently under broad spectrum empiric IV antibiotics and antifungal medication (Cefepime, daptomycin and micafungin), we will modify antibiotic treatment as complementary workup is resulted. Lymph node biopsy shows probable classic Hodgkin lymphoma, Heme-Onc input appreciated. Patient has poor prognosis Plan discussed with: Patient Dietary Evaluation Review Comments: 1) Ergocalciferol 50,000IU weekly 2) Jose L 1 pk daily, MVI w/ mineral 1 tab, Vit C 500mg BID, Zinc sulfate 220mg daily x 10 days 3) Advance to [id number] + renal special 80gm protein diet 4) Continue current plan of care Expected Outcomes/Goals: Advance diet to meet at least 75% estimated needs FU 2-3 days CC Plasma Assessment Blood Product Administration S: 11:05 MARC REEDER MD Dec 22, 2024 20:37
--- NOTE | 2024-12-22 20:41 | DVHPN2 ---
Consult Progress Note Date Seen: Dec 16, 2024 Subjective Patient reports: Feels better (still having fevers, functionally neutropenic) Objective vital signs Vital Sign Date Time Temp Pulse Resp B/P (MAP) Pulse Ox O2 Delivery O2 Flow Rate FiO2 12/22/24 18:15 75 11 99/50 (66) 100 12/22/24 17:42 Nasal Cannula* 3 32 12/22/24 17:30 99.5 99.5 Total Intake and Output 12/21/24 12/21/24 12/22/24 14:59 22:59 06:59 Intake Total 351.304 ml 241.304 ml 407.117 ml Output Total 10 ml 15 ml Balance 351.304 ml 231.304 ml 392.117 ml medications Current Medications Medications Dose Ordered Sig/Shavon Route Start Time Stop Time Status Last Admin Dose Admin Acetaminophen 650 mg Q6HP PRN PO 12/04/24 03:30 12/22/24 04:21 650 MG Ondansetron HCl 4 mg Q4HP PRN IV 12/04/24 03:30 12/22/24 03:16 4 MG Pantoprazole Sodium 40 mg BID IV 12/04/24 06:45 12/22/24 08:00 40 MG Calcium Acetate 1,334 mg TIDWMEALS PO 12/08/24 12:00 12/22/24 16:17 1,334 MG Gabapentin 200 mg HS PO 12/10/24 22:00 12/21/24 21:52 200 MG Multivit/Ca Carb/ B Cmplx/FA/Prenat 1 tab DAILY PO 12/12/24 10:00 12/22/24 08:01 1 TAB Enteral Nutritional Formula 27.5 gm DAILY PO 12/12/24 10:00 12/14/24 09:26 27.5 GM Ergocalciferol 50,000 unit Q7D PO 12/12/24 08:45 12/12/24 09:38 50,000 UNIT Enteral Nutritional Formula 240 ml BIDWM PO 12/13/24 08:00 12/17/24 08:21 240 ML Midodrine 15 mg TID@0600,1200,1800 PO 12/15/24 12:00 12/22/24 16:18 15 MG Sodium Chloride 10 ml QSHIFT@ IV 12/16/24 22:00 12/22/24 08:01 10 ML Acetaminophen 325 mg Q6HP PRN OR 12/17/24 06:45 Epoetin Tonio-epbx 10,000 unit 2XW SC 12/17/24 12:00 Norepinephrine Bitartrate 250 ml @ 0.938 mls/ hr Q24H IV 12/18/24 06:30 12/22/24 05:42 0.938 MLS/HR Octreotide Acetate 100 mcg TID SUBCUT 12/18/24 14:00 12/22/24 12:28 100 MCG Dopamine HCl/ Dextrose 250 ml @ 6.413 mls/ hr Q24H IV 12/18/24 09:45 12/22/24 03:59 6.413 MLS/HR Citalopram Hydrobromide 10 mg DAILY PO 12/20/24 10:00 12/22/24 08:01 10 MG Morphine Sulfate 2 mg Q4H PRN IV 12/20/24 15:30 12/22/24 03:15 2 MG Morphine Sulfate 4 mg Q4HPRN PRN IV 12/20/24 15:30 Enteral Nutritional Formula 1,000 ml 30ML/HR GT 12/20/24 18:00 12/21/24 22:15 1,000 ML Diagnostic Test (Pha) 1 strip Q6HR 12/22/24 06:00 12/22/24 16:18 1 STRIP Insulin Human Regular Q6HR SC 12/22/24 06:00 12/22/24 16:19 2 UNITS Dextrose 50 ml UD PRN IV 12/22/24 06:30 Lactulose 30 ml BID PO 12/22/24 22:00 Meropenem 50 ml @ 17 mls/hr DAILY IV 12/23/24 10:00 Daptomycin 0 ml @ 0 mls/hr PER PHARMACY IV 12/22/24 14:00 laboratory and microbiology Laboratory Tests 12/22/24 04:15 Test 12/22/24 04:15 Range/Units Serum Glucose 216 H 74-106 mg/dL Problem List/Assessment/Plan Problems(with codes): (1) Acute CVA (cerebrovascular accident) (2) Hyperkalemia (3) Fever (4) Weakness (5) Acute on chronic diastolic heart failure (6) Elevated troponin (7) Non-STEMI (non-ST elevated myocardial infarction) (8) Elevated d-dimer (9) Neutropenic fever (10) Septic shock Problem List/Assessment/Plan Physical Exam Patient lying in bed, in no acute distress General: Lucid, afebrile, mucosae are moist. Mucositis of tongue Cardiovascular: Normal S1 and S2. No murmurs, gallops or rubs. Sternotomy is stable, with no secretions or erythema, no cracking Respiratory: Normal ventilation mechanics. Clear lung sounds on auscultation. With requirement of nasal cannula at 4 liters/minute Abdomen: Soft, nontender, no organomegaly, normal bowel sounds MSK/skin: Mobilizes 4 limbs. Skin is dry and warm. Decubitus ulcer grade 3, with mild yellow-greenish secretion Neurological: Oriented in 3 spheres. Presents motor weakness of four limbs predominantly on right side, no motor no sensitive deficits. Bradypsychia. Pupils are isocoric and reactive Assessment Febrile neutropenia Questionable typhlitis Hodgkin lymphoma Rule out opportunistic infection Ruled out cholangitis Rule out mediastinitis Transaminitis Ruled out hemolysis Multiple CVAs - Ruled out infective endocarditis GOPAL hemodynamically mediated on CKD - currently on hemodialysis Pancytopenia - status post lymph node resection and bone marrow biopsy (rule out malignancy) Coronary artery disease status post triple-vessel CABG complicated with cardiac arrest and multiple strokes Decubitus ulcer - present on admission 12/14: on/off levophed, leukocytosis is improving, 12/15: rising levophed needs 12/16: still having fevers, suspect functional neutropenia Plan/Recommendation Ordered QuantiFERON (tuberculosis suspicion is low), HIV (negative), cocci serology, Aspergillus and histoplasmosis antibodies, wound culture (preliminary yeast, Streptococcus viridans and Enterococcus), and sputum culture (normal oropharyngeal la). All three blood cultures sets negative at the moment. Urine culture negative. MRSA swabs were negative. Low probability of MRSA pneumonia. If considering infection source, high suspicion of neutropenic enterocolitis/typhlitis. Per primary team, lymph node biopsy revealed classic Hodgkin lymphoma. Heme oncologist specialist on board. We will continue empiric IV antibiotics (meropenem, daptomycin, and micafungin Currently patient is on meropenem, daptomycin (to cover MRSA sepsis, not pneumonia), and micafungin. May consider switching to voriconazole depending on results of fungal serology Positive GGT (approximately 400), elevated alkaline phosphate probable biliary origin. MRCP ruled out bile duct or gallbladder distention, evidence trace ascites and splenomegaly. Negative direct Farrukh and haptoglobin, ruled out hemolysis Mediastinitis still not ruled out due to imaging without IV contrast, but diagnosis is highly unlikely due to stable sternotomy with no presence of secretion. Biopsy of lymph node showed activated T lymphocytes (nonconclusive). Pending bone marrow biopsy results Appreciate input of neurologist, lookback coordinator, fly finisher and tripoler specialist. Evaluate continuing DAPT per lookback coordinator recommendation Rest of recommendations per primary team. Discussed plan with Dr. Reeder, patient and nurses: Have ordered complementary study for opportunistic infections, mostly negative, some pending. Patient is currently under broad spectrum empiric IV antibiotics and antifungal medication (Cefepime, daptomycin and micafungin), we will modify antibiotic treatment as complementary workup is resulted. Lymph node biopsy shows probable classic Hodgkin lymphoma, Heme-Onc input appreciated. Patient has poor prognosis Plan discussed with: Patient Dietary Evaluation Review Comments: 1) Ergocalciferol 50,000IU weekly 2) Jose L 1 pk daily, MVI w/ mineral 1 tab, Vit C 500mg BID, Zinc sulfate 220mg daily x 10 days 3) Advance to [id number] + renal special 80gm protein diet 4) Continue current plan of care Expected Outcomes/Goals: Advance diet to meet at least 75% estimated needs FU 2-3 days CC Plasma Assessment Blood Product Administration S: 11:05 MARC REEDER MD Dec 22, 2024 20:41
--- NOTE | 2024-12-22 20:44 | DVHPN2 ---
Consult Progress Note Date Seen: Dec 17, 2024 Subjective Patient reports: Feels better (diarrhea slowly imrpving) Objective vital signs Vital Sign Date Time Temp Pulse Resp B/P (MAP) Pulse Ox O2 Delivery O2 Flow Rate FiO2 12/22/24 18:15 75 11 99/50 (66) 100 12/22/24 17:42 Nasal Cannula* 3 32 12/22/24 17:30 99.5 99.5 Total Intake and Output 12/21/24 12/21/24 12/22/24 14:59 22:59 06:59 Intake Total 351.304 ml 241.304 ml 407.117 ml Output Total 10 ml 15 ml Balance 351.304 ml 231.304 ml 392.117 ml medications Current Medications Medications Dose Ordered Sig/Shavon Route Start Time Stop Time Status Last Admin Dose Admin Acetaminophen 650 mg Q6HP PRN PO 12/04/24 03:30 12/22/24 04:21 650 MG Ondansetron HCl 4 mg Q4HP PRN IV 12/04/24 03:30 12/22/24 03:16 4 MG Pantoprazole Sodium 40 mg BID IV 12/04/24 06:45 12/22/24 08:00 40 MG Calcium Acetate 1,334 mg TIDWMEALS PO 12/08/24 12:00 12/22/24 16:17 1,334 MG Gabapentin 200 mg HS PO 12/10/24 22:00 12/21/24 21:52 200 MG Multivit/Ca Carb/ B Cmplx/FA/Prenat 1 tab DAILY PO 12/12/24 10:00 12/22/24 08:01 1 TAB Enteral Nutritional Formula 27.5 gm DAILY PO 12/12/24 10:00 12/14/24 09:26 27.5 GM Ergocalciferol 50,000 unit Q7D PO 12/12/24 08:45 12/12/24 09:38 50,000 UNIT Enteral Nutritional Formula 240 ml BIDWM PO 12/13/24 08:00 12/17/24 08:21 240 ML Midodrine 15 mg TID@0600,1200,1800 PO 12/15/24 12:00 12/22/24 16:18 15 MG Sodium Chloride 10 ml QSHIFT@ IV 12/16/24 22:00 12/22/24 08:01 10 ML Acetaminophen 325 mg Q6HP PRN MS 12/17/24 06:45 Epoetin Tonio-epbx 10,000 unit 2XW SC 12/17/24 12:00 Norepinephrine Bitartrate 250 ml @ 0.938 mls/ hr Q24H IV 12/18/24 06:30 12/22/24 05:42 0.938 MLS/HR Octreotide Acetate 100 mcg TID SUBCUT 12/18/24 14:00 12/22/24 12:28 100 MCG Dopamine HCl/ Dextrose 250 ml @ 6.413 mls/ hr Q24H IV 12/18/24 09:45 12/22/24 03:59 6.413 MLS/HR Citalopram Hydrobromide 10 mg DAILY PO 12/20/24 10:00 12/22/24 08:01 10 MG Morphine Sulfate 2 mg Q4H PRN IV 12/20/24 15:30 12/22/24 03:15 2 MG Morphine Sulfate 4 mg Q4HPRN PRN IV 12/20/24 15:30 Enteral Nutritional Formula 1,000 ml 30ML/HR GT 12/20/24 18:00 12/21/24 22:15 1,000 ML Diagnostic Test (Pha) 1 strip Q6HR 12/22/24 06:00 12/22/24 16:18 1 STRIP Insulin Human Regular Q6HR SC 12/22/24 06:00 12/22/24 16:19 2 UNITS Dextrose 50 ml UD PRN IV 12/22/24 06:30 Lactulose 30 ml BID PO 12/22/24 22:00 Meropenem 50 ml @ 17 mls/hr DAILY IV 12/23/24 10:00 Daptomycin 0 ml @ 0 mls/hr PER PHARMACY IV 12/22/24 14:00 laboratory and microbiology Laboratory Tests 12/22/24 04:15 Test 12/22/24 04:15 Range/Units Serum Glucose 216 H 74-106 mg/dL Problem List/Assessment/Plan Problems(with codes): (1) Hyperkalemia (2) Fever (3) Weakness (4) Acute CVA (cerebrovascular accident) (5) Septic shock (6) Neutropenic fever (7) Acute on chronic diastolic heart failure (8) Elevated troponin (9) Non-STEMI (non-ST elevated myocardial infarction) (10) Elevated d-dimer Problem List/Assessment/Plan Physical Exam Patient lying in bed, in no acute distress General: Lucid, afebrile, mucosae are moist. Mucositis of tongue Cardiovascular: Normal S1 and S2. No murmurs, gallops or rubs. Sternotomy is stable, with no secretions or erythema, no cracking Respiratory: Normal ventilation mechanics. Clear lung sounds on auscultation. With requirement of nasal cannula at 4 liters/minute Abdomen: Soft, nontender, no organomegaly, normal bowel sounds MSK/skin: Mobilizes 4 limbs. Skin is dry and warm. Decubitus ulcer grade 3, with mild yellow-greenish secretion Neurological: Oriented in 3 spheres. Presents motor weakness of four limbs predominantly on right side, no motor no sensitive deficits. Bradypsychia. Pupils are isocoric and reactive Assessment Febrile neutropenia Questionable typhlitis Hodgkin lymphoma Rule out opportunistic infection Ruled out cholangitis Rule out mediastinitis Transaminitis Ruled out hemolysis Multiple CVAs - Ruled out infective endocarditis GOPAL hemodynamically mediated on CKD - currently on hemodialysis Pancytopenia - status post lymph node resection and bone marrow biopsy (rule out malignancy) Coronary artery disease status post triple-vessel CABG complicated with cardiac arrest and multiple strokes Decubitus ulcer - present on admission 12/14: on/off levophed, leukocytosis is improving, 12/15: rising levophed needs 12/16: still having fevers, suspect functional neutropenia 12/17: diarrhea slowly improving coming off pressors Plan/Recommendation Ordered QuantiFERON (tuberculosis suspicion is low), HIV (negative), cocci serology, Aspergillus and histoplasmosis antibodies, wound culture (preliminary yeast, Streptococcus viridans and Enterococcus), and sputum culture (normal oropharyngeal la). All three blood cultures sets negative at the moment. Urine culture negative. MRSA swabs were negative. Low probability of MRSA pneumonia. If considering infection source, high suspicion of neutropenic enterocolitis/typhlitis. Per primary team, lymph node biopsy revealed classic Hodgkin lymphoma. Heme oncologist specialist on board. We will continue empiric IV antibiotics (meropenem, daptomycin, and micafungin Currently patient is on meropenem, daptomycin (to cover MRSA sepsis, not pneumonia), and micafungin. May consider switching to voriconazole depending on results of fungal serology Positive GGT (approximately 400), elevated alkaline phosphate probable biliary origin. MRCP ruled out bile duct or gallbladder distention, evidence trace ascites and splenomegaly. Negative direct Farrukh and haptoglobin, ruled out hemolysis Mediastinitis still not ruled out due to imaging without IV contrast, but diagnosis is highly unlikely due to stable sternotomy with no presence of secretion. Biopsy of lymph node showed activated T lymphocytes (nonconclusive). Pending bone marrow biopsy results Appreciate input of neurologist, climbing guide, director of regulatory affairs and hay stacker specialist. Evaluate continuing DAPT per climbing guide recommendation Rest of recommendations per primary team. Discussed plan with Dr. Reeder, patient and nurses: Have ordered complementary study for opportunistic infections, mostly negative, some pending. Patient is currently under broad spectrum empiric IV antibiotics and antifungal medication (Cefepime, daptomycin and micafungin), we will modify antibiotic treatment as complementary workup is resulted. Lymph node biopsy shows probable classic Hodgkin lymphoma, Heme-Onc input appreciated. Patient has poor prognosis Plan discussed with: Patient Dietary Evaluation Review Comments: 1) Ergocalciferol 50,000IU weekly 2) Jose L 1 pk daily, MVI w/ mineral 1 tab, Vit C 500mg BID, Zinc sulfate 220mg daily x 10 days 3) Advance to [id number] + renal special 80gm protein diet 4) Continue current plan of care Expected Outcomes/Goals: Advance diet to meet at least 75% estimated needs FU 2-3 days CC Plasma Assessment Blood Product Administration S: 11:05 MARC REEDER MD Dec 22, 2024 20:44
--- NOTE | 2024-12-22 20:47 | DVHPN2 ---
Consult Progress Note Date Seen: Dec 18, 2024 Subjective Patient reports: Feels better (rising bilirubin on/off pressors, needs pressors for dialysis) Objective vital signs Vital Sign Date Time Temp Pulse Resp B/P (MAP) Pulse Ox O2 Delivery O2 Flow Rate FiO2 12/22/24 18:15 75 11 99/50 (66) 100 12/22/24 17:42 Nasal Cannula* 3 32 12/22/24 17:30 99.5 99.5 Total Intake and Output 12/21/24 12/21/24 12/22/24 14:59 22:59 06:59 Intake Total 351.304 ml 241.304 ml 407.117 ml Output Total 10 ml 15 ml Balance 351.304 ml 231.304 ml 392.117 ml medications Current Medications Medications Dose Ordered Sig/Shavon Route Start Time Stop Time Status Last Admin Dose Admin Acetaminophen 650 mg Q6HP PRN PO 12/04/24 03:30 12/22/24 04:21 650 MG Ondansetron HCl 4 mg Q4HP PRN IV 12/04/24 03:30 12/22/24 03:16 4 MG Pantoprazole Sodium 40 mg BID IV 12/04/24 06:45 12/22/24 08:00 40 MG Calcium Acetate 1,334 mg TIDWMEALS PO 12/08/24 12:00 12/22/24 16:17 1,334 MG Gabapentin 200 mg HS PO 12/10/24 22:00 12/21/24 21:52 200 MG Multivit/Ca Carb/ B Cmplx/FA/Prenat 1 tab DAILY PO 12/12/24 10:00 12/22/24 08:01 1 TAB Enteral Nutritional Formula 27.5 gm DAILY PO 12/12/24 10:00 12/14/24 09:26 27.5 GM Ergocalciferol 50,000 unit Q7D PO 12/12/24 08:45 12/12/24 09:38 50,000 UNIT Enteral Nutritional Formula 240 ml BIDWM PO 12/13/24 08:00 12/17/24 08:21 240 ML Midodrine 15 mg TID@0600,1200,1800 PO 12/15/24 12:00 12/22/24 16:18 15 MG Sodium Chloride 10 ml QSHIFT@ IV 12/16/24 22:00 12/22/24 08:01 10 ML Acetaminophen 325 mg Q6HP PRN CA 12/17/24 06:45 Epoetin Tonio-epbx 10,000 unit 2XW SC 12/17/24 12:00 Norepinephrine Bitartrate 250 ml @ 0.938 mls/ hr Q24H IV 12/18/24 06:30 12/22/24 05:42 0.938 MLS/HR Octreotide Acetate 100 mcg TID SUBCUT 12/18/24 14:00 12/22/24 12:28 100 MCG Dopamine HCl/ Dextrose 250 ml @ 6.413 mls/ hr Q24H IV 12/18/24 09:45 12/22/24 03:59 6.413 MLS/HR Citalopram Hydrobromide 10 mg DAILY PO 12/20/24 10:00 12/22/24 08:01 10 MG Morphine Sulfate 2 mg Q4H PRN IV 12/20/24 15:30 12/22/24 03:15 2 MG Morphine Sulfate 4 mg Q4HPRN PRN IV 12/20/24 15:30 Enteral Nutritional Formula 1,000 ml 30ML/HR GT 12/20/24 18:00 12/21/24 22:15 1,000 ML Diagnostic Test (Pha) 1 strip Q6HR 12/22/24 06:00 12/22/24 16:18 1 STRIP Insulin Human Regular Q6HR SC 12/22/24 06:00 12/22/24 16:19 2 UNITS Dextrose 50 ml UD PRN IV 12/22/24 06:30 Lactulose 30 ml BID PO 12/22/24 22:00 Meropenem 50 ml @ 17 mls/hr DAILY IV 12/23/24 10:00 Daptomycin 0 ml @ 0 mls/hr PER PHARMACY IV 12/22/24 14:00 laboratory and microbiology Laboratory Tests 12/22/24 04:15 Test 12/22/24 04:15 Range/Units Serum Glucose 216 H 74-106 mg/dL Problem List/Assessment/Plan Problems(with codes): (1) Hyperkalemia (2) Fever (3) Weakness (4) Acute CVA (cerebrovascular accident) (5) Septic shock (6) Neutropenic fever (7) Acute on chronic diastolic heart failure (8) Elevated troponin (9) Non-STEMI (non-ST elevated myocardial infarction) (10) Elevated d-dimer Problem List/Assessment/Plan Physical Exam Patient lying in bed, in no acute distress General: Lucid, afebrile, mucosae are moist. Mucositis of tongue Cardiovascular: Normal S1 and S2. No murmurs, gallops or rubs. Sternotomy is stable, with no secretions or erythema, no cracking Respiratory: Normal ventilation mechanics. Clear lung sounds on auscultation. With requirement of nasal cannula at 4 liters/minute Abdomen: Soft, nontender, no organomegaly, normal bowel sounds MSK/skin: Mobilizes 4 limbs. Skin is dry and warm. Decubitus ulcer grade 3, with mild yellow-greenish secretion Neurological: Oriented in 3 spheres. Presents motor weakness of four limbs predominantly on right side, no motor no sensitive deficits. Bradypsychia. Pupils are isocoric and reactive Assessment Febrile neutropenia Questionable typhlitis Hodgkin lymphoma Rule out opportunistic infection Ruled out cholangitis Rule out mediastinitis Transaminitis Ruled out hemolysis Multiple CVAs - Ruled out infective endocarditis GOPAL hemodynamically mediated on CKD - currently on hemodialysis Pancytopenia - status post lymph node resection and bone marrow biopsy (rule out malignancy) Coronary artery disease status post triple-vessel CABG complicated with cardiac arrest and multiple strokes Decubitus ulcer - present on admission 12/14: on/off levophed, leukocytosis is improving, 12/15: rising levophed needs 12/16: still having fevers, suspect functional neutropenia 12/17: diarrhea slowly improving coming off pressors 12/18 rising biling, on/off pressors Plan/Recommendation Ordered QuantiFERON (tuberculosis suspicion is low), HIV (negative), cocci serology, Aspergillus and histoplasmosis antibodies, wound culture (preliminary yeast, Streptococcus viridans and Enterococcus), and sputum culture (normal oropharyngeal la). All three blood cultures sets negative at the moment. Urine culture negative. MRSA swabs were negative. Low probability of MRSA pneumonia. If considering infection source, high suspicion of neutropenic enterocolitis/typhlitis. Per primary team, lymph node biopsy revealed classic Hodgkin lymphoma. Heme oncologist specialist on board. We will continue empiric IV antibiotics (meropenem, daptomycin, and micafungin Currently patient is on meropenem, daptomycin (to cover MRSA sepsis, not pneumonia), and micafungin. May consider switching to voriconazole depending on results of fungal serology Positive GGT (approximately 400), elevated alkaline phosphate probable biliary origin. MRCP ruled out bile duct or gallbladder distention, evidence trace ascites and splenomegaly. Negative direct Farrukh and haptoglobin, ruled out hemolysis Mediastinitis still not ruled out due to imaging without IV contrast, but diagnosis is highly unlikely due to stable sternotomy with no presence of secretion. Biopsy of lymph node showed activated T lymphocytes (nonconclusive). Pending bone marrow biopsy results Appreciate input of neurologist, oral surgery assistant, health and fitness professor and electrical discharge machine operator specialist. Evaluate continuing DAPT per oral surgery assistant recommendation Rest of recommendations per primary team. Discussed plan with Dr. Reeder, patient and nurses: Have ordered complementary study for opportunistic infections, mostly negative, some pending. Patient is currently under broad spectrum empiric IV antibiotics and antifungal medication (Cefepime, daptomycin and micafungin), we will modify antibiotic treatment as complementary workup is resulted. Lymph node biopsy shows probable classic Hodgkin lymphoma, Heme-Onc input appreciated. Patient has poor prognosis Plan discussed with: Patient Dietary Evaluation Review Comments: 1) Ergocalciferol 50,000IU weekly 2) Jose L 1 pk daily, MVI w/ mineral 1 tab, Vit C 500mg BID, Zinc sulfate 220mg daily x 10 days 3) Advance to [id number] + renal special 80gm protein diet 4) Continue current plan of care Expected Outcomes/Goals: Advance diet to meet at least 75% estimated needs FU 2-3 days CC Plasma Assessment Blood Product Administration S: 11:05 MARC REEDER MD Dec 22, 2024 20:47
--- NOTE | 2024-12-22 20:50 | DVHPN2 ---
Consult Progress Note Date Seen: Dec 19, 2024 Subjective Patient reports: Feels better (sp lower back debridement) Objective vital signs Vital Sign Date Time Temp Pulse Resp B/P (MAP) Pulse Ox O2 Delivery O2 Flow Rate FiO2 12/22/24 18:15 75 11 99/50 (66) 100 12/22/24 17:42 Nasal Cannula* 3 32 12/22/24 17:30 99.5 99.5 Total Intake and Output 12/21/24 12/21/24 12/22/24 14:59 22:59 06:59 Intake Total 351.304 ml 241.304 ml 407.117 ml Output Total 10 ml 15 ml Balance 351.304 ml 231.304 ml 392.117 ml medications Current Medications Medications Dose Ordered Sig/Shavon Route Start Time Stop Time Status Last Admin Dose Admin Acetaminophen 650 mg Q6HP PRN PO 12/04/24 03:30 12/22/24 04:21 650 MG Ondansetron HCl 4 mg Q4HP PRN IV 12/04/24 03:30 12/22/24 03:16 4 MG Pantoprazole Sodium 40 mg BID IV 12/04/24 06:45 12/22/24 08:00 40 MG Calcium Acetate 1,334 mg TIDWMEALS PO 12/08/24 12:00 12/22/24 16:17 1,334 MG Gabapentin 200 mg HS PO 12/10/24 22:00 12/21/24 21:52 200 MG Multivit/Ca Carb/ B Cmplx/FA/Prenat 1 tab DAILY PO 12/12/24 10:00 12/22/24 08:01 1 TAB Enteral Nutritional Formula 27.5 gm DAILY PO 12/12/24 10:00 12/14/24 09:26 27.5 GM Ergocalciferol 50,000 unit Q7D PO 12/12/24 08:45 12/12/24 09:38 50,000 UNIT Enteral Nutritional Formula 240 ml BIDWM PO 12/13/24 08:00 12/17/24 08:21 240 ML Midodrine 15 mg TID@0600,1200,1800 PO 12/15/24 12:00 12/22/24 16:18 15 MG Sodium Chloride 10 ml QSHIFT@ IV 12/16/24 22:00 12/22/24 08:01 10 ML Acetaminophen 325 mg Q6HP PRN MT 12/17/24 06:45 Epoetin Tonio-epbx 10,000 unit 2XW SC 12/17/24 12:00 Norepinephrine Bitartrate 250 ml @ 0.938 mls/ hr Q24H IV 12/18/24 06:30 12/22/24 05:42 0.938 MLS/HR Octreotide Acetate 100 mcg TID SUBCUT 12/18/24 14:00 12/22/24 12:28 100 MCG Dopamine HCl/ Dextrose 250 ml @ 6.413 mls/ hr Q24H IV 12/18/24 09:45 12/22/24 03:59 6.413 MLS/HR Citalopram Hydrobromide 10 mg DAILY PO 12/20/24 10:00 12/22/24 08:01 10 MG Morphine Sulfate 2 mg Q4H PRN IV 12/20/24 15:30 12/22/24 03:15 2 MG Morphine Sulfate 4 mg Q4HPRN PRN IV 12/20/24 15:30 Enteral Nutritional Formula 1,000 ml 30ML/HR GT 12/20/24 18:00 12/21/24 22:15 1,000 ML Diagnostic Test (Pha) 1 strip Q6HR 12/22/24 06:00 12/22/24 16:18 1 STRIP Insulin Human Regular Q6HR SC 12/22/24 06:00 12/22/24 16:19 2 UNITS Dextrose 50 ml UD PRN IV 12/22/24 06:30 Lactulose 30 ml BID PO 12/22/24 22:00 Meropenem 50 ml @ 17 mls/hr DAILY IV 12/23/24 10:00 Daptomycin 0 ml @ 0 mls/hr PER PHARMACY IV 12/22/24 14:00 laboratory and microbiology Laboratory Tests 12/22/24 04:15 Test 12/22/24 04:15 Range/Units Serum Glucose 216 H 74-106 mg/dL Problem List/Assessment/Plan Problems(with codes): (1) Hyperkalemia (2) Fever (3) Weakness (4) Acute CVA (cerebrovascular accident) (5) Septic shock (6) Neutropenic fever (7) Acute on chronic diastolic heart failure (8) Elevated troponin (9) Non-STEMI (non-ST elevated myocardial infarction) (10) Elevated d-dimer Problem List/Assessment/Plan Physical Exam Patient lying in bed, in no acute distress General: Lucid, afebrile, mucosae are moist. Mucositis of tongue Cardiovascular: Normal S1 and S2. No murmurs, gallops or rubs. Sternotomy is stable, with no secretions or erythema, no cracking Respiratory: Normal ventilation mechanics. Clear lung sounds on auscultation. With requirement of nasal cannula at 4 liters/minute Abdomen: Soft, nontender, no organomegaly, normal bowel sounds MSK/skin: Mobilizes 4 limbs. Skin is dry and warm. Decubitus ulcer grade 3, with mild yellow-greenish secretion Neurological: Oriented in 3 spheres. Presents motor weakness of four limbs predominantly on right side, no motor no sensitive deficits. Bradypsychia. Pupils are isocoric and reactive Assessment Febrile neutropenia Questionable typhlitis Hodgkin lymphoma Rule out opportunistic infection Ruled out cholangitis Rule out mediastinitis Transaminitis Ruled out hemolysis Multiple CVAs - Ruled out infective endocarditis GOPAL hemodynamically mediated on CKD - currently on hemodialysis Pancytopenia - status post lymph node resection and bone marrow biopsy (rule out malignancy) Coronary artery disease status post triple-vessel CABG complicated with cardiac arrest and multiple strokes Decubitus ulcer - present on admission 12/14: on/off levophed, leukocytosis is improving, 12/15: rising levophed needs 12/16: still having fevers, suspect functional neutropenia 12/17: diarrhea slowly improving coming off pressors 12/18 rising biling, on/off pressors 12/19 sp lower back debridement Plan/Recommendation Ordered QuantiFERON (tuberculosis suspicion is low), HIV (negative), cocci serology, Aspergillus and histoplasmosis antibodies, wound culture (preliminary yeast, Streptococcus viridans and Enterococcus), and sputum culture (normal oropharyngeal la). All three blood cultures sets negative at the moment. Urine culture negative. MRSA swabs were negative. Low probability of MRSA pneumonia. If considering infection source, high suspicion of neutropenic enterocolitis/typhlitis. Per primary team, lymph node biopsy revealed classic Hodgkin lymphoma. Heme oncologist specialist on board. We will continue empiric IV antibiotics (meropenem, daptomycin, and micafungin Currently patient is on meropenem, daptomycin (to cover MRSA sepsis, not pneumonia), and micafungin. May consider switching to voriconazole depending on results of fungal serology Positive GGT (approximately 400), elevated alkaline phosphate probable biliary origin. MRCP ruled out bile duct or gallbladder distention, evidence trace ascites and splenomegaly. Negative direct Farrukh and haptoglobin, ruled out hemolysis Mediastinitis still not ruled out due to imaging without IV contrast, but diagnosis is highly unlikely due to stable sternotomy with no presence of secretion. Biopsy of lymph node showed activated T lymphocytes (nonconclusive). Pending bone marrow biopsy results Appreciate input of neurologist, senior software architect, vulcanizer operator and crop nutrition scientist specialist. Evaluate continuing DAPT per senior software architect recommendation Rest of recommendations per primary team. Discussed plan with Dr. Reeder, patient and nurses: Have ordered complementary study for opportunistic infections, mostly negative, some pending. Patient is currently under broad spectrum empiric IV antibiotics and antifungal medication (Cefepime, daptomycin and micafungin), we will modify antibiotic treatment as complementary workup is resulted. Lymph node biopsy shows probable classic Hodgkin lymphoma, Heme-Onc input appreciated. Patient has poor prognosis Plan discussed with: Patient Dietary Evaluation Review Comments: 1) Ergocalciferol 50,000IU weekly 2) Jose L 1 pk daily, MVI w/ mineral 1 tab, Vit C 500mg BID, Zinc sulfate 220mg daily x 10 days 3) Advance to [id number] + renal special 80gm protein diet 4) Continue current plan of care Expected Outcomes/Goals: Advance diet to meet at least 75% estimated needs FU 2-3 days CC Plasma Assessment Blood Product Administration S: 11:05 MARC REEDER MD Dec 22, 2024 20:50
--- NOTE | 2024-12-22 20:52 | DVHPN2 ---
Consult Progress Note Date Seen: Dec 20, 2024 Subjective Patient reports: Feels better (off pressors micafungin stopped) Objective vital signs Vital Sign Date Time Temp Pulse Resp B/P (MAP) Pulse Ox O2 Delivery O2 Flow Rate FiO2 12/22/24 18:15 75 11 99/50 (66) 100 12/22/24 17:42 Nasal Cannula* 3 32 12/22/24 17:30 99.5 99.5 Total Intake and Output 12/21/24 12/21/24 12/22/24 14:59 22:59 06:59 Intake Total 351.304 ml 241.304 ml 407.117 ml Output Total 10 ml 15 ml Balance 351.304 ml 231.304 ml 392.117 ml medications Current Medications Medications Dose Ordered Sig/Shavon Route Start Time Stop Time Status Last Admin Dose Admin Acetaminophen 650 mg Q6HP PRN PO 12/04/24 03:30 12/22/24 04:21 650 MG Ondansetron HCl 4 mg Q4HP PRN IV 12/04/24 03:30 12/22/24 03:16 4 MG Pantoprazole Sodium 40 mg BID IV 12/04/24 06:45 12/22/24 08:00 40 MG Calcium Acetate 1,334 mg TIDWMEALS PO 12/08/24 12:00 12/22/24 16:17 1,334 MG Gabapentin 200 mg HS PO 12/10/24 22:00 12/21/24 21:52 200 MG Multivit/Ca Carb/ B Cmplx/FA/Prenat 1 tab DAILY PO 12/12/24 10:00 12/22/24 08:01 1 TAB Enteral Nutritional Formula 27.5 gm DAILY PO 12/12/24 10:00 12/14/24 09:26 27.5 GM Ergocalciferol 50,000 unit Q7D PO 12/12/24 08:45 12/12/24 09:38 50,000 UNIT Enteral Nutritional Formula 240 ml BIDWM PO 12/13/24 08:00 12/17/24 08:21 240 ML Midodrine 15 mg TID@0600,1200,1800 PO 12/15/24 12:00 12/22/24 16:18 15 MG Sodium Chloride 10 ml QSHIFT@ IV 12/16/24 22:00 12/22/24 08:01 10 ML Acetaminophen 325 mg Q6HP PRN [place] 12/17/24 06:45 Epoetin Tonio-epbx 10,000 unit 2XW SC 12/17/24 12:00 Norepinephrine Bitartrate 250 ml @ 0.938 mls/ hr Q24H IV 12/18/24 06:30 12/22/24 05:42 0.938 MLS/HR Octreotide Acetate 100 mcg TID SUBCUT 12/18/24 14:00 12/22/24 12:28 100 MCG Dopamine HCl/ Dextrose 250 ml @ 6.413 mls/ hr Q24H IV 12/18/24 09:45 12/22/24 03:59 6.413 MLS/HR Citalopram Hydrobromide 10 mg DAILY PO 12/20/24 10:00 12/22/24 08:01 10 MG Morphine Sulfate 2 mg Q4H PRN IV 12/20/24 15:30 12/22/24 03:15 2 MG Morphine Sulfate 4 mg Q4HPRN PRN IV 12/20/24 15:30 Enteral Nutritional Formula 1,000 ml 30ML/HR GT 12/20/24 18:00 12/21/24 22:15 1,000 ML Diagnostic Test (Pha) 1 strip Q6HR 12/22/24 06:00 12/22/24 16:18 1 STRIP Insulin Human Regular Q6HR SC 12/22/24 06:00 12/22/24 16:19 2 UNITS Dextrose 50 ml UD PRN IV 12/22/24 06:30 Lactulose 30 ml BID PO 12/22/24 22:00 Meropenem 50 ml @ 17 mls/hr DAILY IV 12/23/24 10:00 Daptomycin 0 ml @ 0 mls/hr PER PHARMACY IV 12/22/24 14:00 laboratory and microbiology Laboratory Tests 12/22/24 04:15 Test 12/22/24 04:15 Range/Units Serum Glucose 216 H 74-106 mg/dL Problem List/Assessment/Plan Problem List/Assessment/Plan Physical Exam Patient lying in bed, in no acute distress General: Lucid, afebrile, mucosae are moist. Mucositis of tongue Cardiovascular: Normal S1 and S2. No murmurs, gallops or rubs. Sternotomy is stable, with no secretions or erythema, no cracking Respiratory: Normal ventilation mechanics. Clear lung sounds on auscultation. With requirement of nasal cannula at 4 liters/minute Abdomen: Soft, nontender, no organomegaly, normal bowel sounds MSK/skin: Mobilizes 4 limbs. Skin is dry and warm. Decubitus ulcer grade 3, with mild yellow-greenish secretion Neurological: Oriented in 3 spheres. Presents motor weakness of four limbs predominantly on right side, no motor no sensitive deficits. Bradypsychia. Pupils are isocoric and reactive Assessment Febrile neutropenia Questionable typhlitis Hodgkin lymphoma Rule out opportunistic infection Ruled out cholangitis Rule out mediastinitis Transaminitis Ruled out hemolysis Multiple CVAs - Ruled out infective endocarditis GOPAL hemodynamically mediated on CKD - currently on hemodialysis Pancytopenia - status post lymph node resection and bone marrow biopsy (rule out malignancy) Coronary artery disease status post triple-vessel CABG complicated with cardiac arrest and multiple strokes Decubitus ulcer - present on admission 12/14: on/off levophed, leukocytosis is improving, 12/15: rising levophed needs 12/16: still having fevers, suspect functional neutropenia 12/17: diarrhea slowly improving coming off pressors 12/18 rising biling, on/off pressors 12/19 sp lower back debridement 12/20: micafungin stopped Plan/Recommendation Ordered QuantiFERON (tuberculosis suspicion is low), HIV (negative), cocci serology, Aspergillus and histoplasmosis antibodies, wound culture (preliminary yeast, Streptococcus viridans and Enterococcus), and sputum culture (normal oropharyngeal la). All three blood cultures sets negative at the moment. Urine culture negative. MRSA swabs were negative. Low probability of MRSA pneumonia. If considering infection source, high suspicion of neutropenic enterocolitis/typhlitis. Per primary team, lymph node biopsy revealed classic Hodgkin lymphoma. Heme oncologist specialist on board. We will continue empiric IV antibiotics (meropenem and daptomycin Currently patient is on meropenem, daptomycin (to cover MRSA sepsis, not pneumonia), and micafungin. May consider switching to voriconazole depending on results of fungal serology Positive GGT (approximately 400), elevated alkaline phosphate probable biliary origin. MRCP ruled out bile duct or gallbladder distention, evidence trace ascites and splenomegaly. Negative direct Farrukh and haptoglobin, ruled out hemolysis Mediastinitis still not ruled out due to imaging without IV contrast, but diagnosis is highly unlikely due to stable sternotomy with no presence of secretion. Biopsy of lymph node showed activated T lymphocytes (nonconclusive). Pending bone marrow biopsy results Appreciate input of neurologist, hcc coders, medical doctor md and rfid developer specialist. Evaluate continuing DAPT per hcc coders recommendation Rest of recommendations per primary team. Discussed plan with Dr. Reeder, patient and nurses: Have ordered complementary study for opportunistic infections, mostly negative, some pending. Patient is currently under broad spectrum empiric IV antibiotics and antifungal medication (Cefepime, daptomycin and micafungin), we will modify antibiotic treatment as complementary workup is resulted. Lymph node biopsy shows probable classic Hodgkin lymphoma, Heme-Onc input appreciated. Patient has poor prognosis Plan discussed with: Patient Dietary Evaluation Review Comments: 1) Ergocalciferol 50,000IU weekly 2) Jose L 1 pk daily, MVI w/ mineral 1 tab, Vit C 500mg BID, Zinc sulfate 220mg daily x 10 days 3) Advance to [id number] + renal special 80gm protein diet 4) Continue current plan of care Expected Outcomes/Goals: Advance diet to meet at least 75% estimated needs FU 2-3 days CC Plasma Assessment Blood Product Administration S: 11:05 MARC REEDER MD Dec 22, 2024 20:52
--- NOTE | 2024-12-22 21:00 | DVHPN2 ---
Consult Progress Note Date Seen: Dec 21, 2024 Subjective Patient reports: Feels better (no abdominal pain, bilirubin continuing to rise. ) Objective vital signs Vital Sign Date Time Temp Pulse Resp B/P (MAP) Pulse Ox O2 Delivery O2 Flow Rate FiO2 12/22/24 18:15 75 11 99/50 (66) 100 12/22/24 17:42 Nasal Cannula* 3 32 12/22/24 17:30 99.5 99.5 Total Intake and Output 12/21/24 12/21/24 12/22/24 14:59 22:59 06:59 Intake Total 351.304 ml 241.304 ml 407.117 ml Output Total 10 ml 15 ml Balance 351.304 ml 231.304 ml 392.117 ml medications Current Medications Medications Dose Ordered Sig/Shavon Route Start Time Stop Time Status Last Admin Dose Admin Acetaminophen 650 mg Q6HP PRN PO 12/04/24 03:30 12/22/24 04:21 650 MG Ondansetron HCl 4 mg Q4HP PRN IV 12/04/24 03:30 12/22/24 03:16 4 MG Pantoprazole Sodium 40 mg BID IV 12/04/24 06:45 12/22/24 08:00 40 MG Calcium Acetate 1,334 mg TIDWMEALS PO 12/08/24 12:00 12/22/24 16:17 1,334 MG Gabapentin 200 mg HS PO 12/10/24 22:00 12/21/24 21:52 200 MG Multivit/Ca Carb/ B Cmplx/FA/Prenat 1 tab DAILY PO 12/12/24 10:00 12/22/24 08:01 1 TAB Enteral Nutritional Formula 27.5 gm DAILY PO 12/12/24 10:00 12/14/24 09:26 27.5 GM Ergocalciferol 50,000 unit Q7D PO 12/12/24 08:45 12/12/24 09:38 50,000 UNIT Enteral Nutritional Formula 240 ml BIDWM PO 12/13/24 08:00 12/17/24 08:21 240 ML Midodrine 15 mg TID@0600,1200,1800 PO 12/15/24 12:00 12/22/24 16:18 15 MG Sodium Chloride 10 ml QSHIFT@ IV 12/16/24 22:00 12/22/24 08:01 10 ML Acetaminophen 325 mg Q6HP PRN [place] 12/17/24 06:45 Epoetin Tonio-epbx 10,000 unit 2XW SC 12/17/24 12:00 Norepinephrine Bitartrate 250 ml @ 0.938 mls/ hr Q24H IV 12/18/24 06:30 12/22/24 05:42 0.938 MLS/HR Octreotide Acetate 100 mcg TID SUBCUT 12/18/24 14:00 12/22/24 12:28 100 MCG Dopamine HCl/ Dextrose 250 ml @ 6.413 mls/ hr Q24H IV 12/18/24 09:45 12/22/24 03:59 6.413 MLS/HR Citalopram Hydrobromide 10 mg DAILY PO 12/20/24 10:00 12/22/24 08:01 10 MG Morphine Sulfate 2 mg Q4H PRN IV 12/20/24 15:30 12/22/24 03:15 2 MG Morphine Sulfate 4 mg Q4HPRN PRN IV 12/20/24 15:30 Enteral Nutritional Formula 1,000 ml 30ML/HR GT 12/20/24 18:00 12/21/24 22:15 1,000 ML Diagnostic Test (Pha) 1 strip Q6HR 12/22/24 06:00 12/22/24 16:18 1 STRIP Insulin Human Regular Q6HR SC 12/22/24 06:00 12/22/24 16:19 2 UNITS Dextrose 50 ml UD PRN IV 12/22/24 06:30 Lactulose 30 ml BID PO 12/22/24 22:00 Meropenem 50 ml @ 17 mls/hr DAILY IV 12/23/24 10:00 Daptomycin 0 ml @ 0 mls/hr PER PHARMACY IV 12/22/24 14:00 laboratory and microbiology Laboratory Tests 12/22/24 04:15 Test 12/22/24 04:15 Range/Units Serum Glucose 216 H 74-106 mg/dL Problem List/Assessment/Plan Problem List/Assessment/Plan Physical Exam Patient lying in bed, in no acute distress General: Lucid, afebrile, mucosae are moist. Mucositis of tongue Cardiovascular: Normal S1 and S2. No murmurs, gallops or rubs. Sternotomy is stable, with no secretions or erythema, no cracking Respiratory: Normal ventilation mechanics. Clear lung sounds on auscultation. With requirement of nasal cannula at 4 liters/minute Abdomen: Soft, nontender, no organomegaly, normal bowel sounds MSK/skin: Mobilizes 4 limbs. Skin is dry and warm. Decubitus ulcer grade 3, with mild yellow-greenish secretion Neurological: Oriented in 3 spheres. Presents motor weakness of four limbs predominantly on right side, no motor no sensitive deficits. Bradypsychia. Pupils are isocoric and reactive Assessment Febrile neutropenia Questionable typhlitis Hodgkin lymphoma Rule out opportunistic infection Ruled out cholangitis Rule out mediastinitis Transaminitis Ruled out hemolysis Multiple CVAs - Ruled out infective endocarditis GOPAL hemodynamically mediated on CKD - currently on hemodialysis Pancytopenia - status post lymph node resection and bone marrow biopsy (rule out malignancy) Coronary artery disease status post triple-vessel CABG complicated with cardiac arrest and multiple strokes Decubitus ulcer - present on admission acute cholagitis 12/14: on/off levophed, leukocytosis is improving, 12/15: rising levophed needs 12/16: still having fevers, suspect functional neutropenia 12/17: diarrhea slowly improving coming off pressors 12/18 rising biling, on/off pressors 12/19 sp lower back debridement 12/20: micafungin stopped 12/21: US w. acute cholangitis Plan/Recommendation Ordered QuantiFERON (tuberculosis suspicion is low), HIV (negative), cocci serology, Aspergillus and histoplasmosis antibodies, wound culture (preliminary yeast, Streptococcus viridans and Enterococcus), and sputum culture (normal oropharyngeal la). All three blood cultures sets negative at the moment. Urine culture negative. MRSA swabs were negative. Low probability of MRSA pneumonia. If considering infection source, high suspicion of neutropenic enterocolitis/typhlitis. Per primary team, lymph node biopsy revealed classic Hodgkin lymphoma. Heme oncologist specialist on board. We will continue empiric IV antibiotics (meropenem and daptomycin > current therapy will adequately cover for acute cholangitis Currently patient is on meropenem, daptomycin (to cover MRSA sepsis, not pneumonia), and micafungin. May consider switching to voriconazole depending on results of fungal serology Positive GGT (approximately 400), elevated alkaline phosphate probable biliary origin. MRCP ruled out bile duct or gallbladder distention, evidence trace ascites and splenomegaly. Negative direct Farrukh and haptoglobin, ruled out hemolysis Mediastinitis still not ruled out due to imaging without IV contrast, but diagnosis is highly unlikely due to stable sternotomy with no presence of secretion. Biopsy of lymph node showed activated T lymphocytes (nonconclusive). Pending bone marrow biopsy results Appreciate input of neurologist, wood carver hand, pinked edge sewing machine operator and railroad mechanic specialist. Evaluate continuing DAPT per wood carver hand recommendation Rest of recommendations per primary team. Discussed plan with Dr. Reeder, patient and nurses: Have ordered complementary study for opportunistic infections, mostly negative, some pending. Patient is currently under broad spectrum empiric IV antibiotics and antifungal medication (Cefepime, daptomycin and micafungin), we will modify antibiotic treatment as complementary workup is resulted. Lymph node biopsy shows probable classic Hodgkin lymphoma, Heme-Onc input appreciated. Patient has poor prognosis Plan discussed with: Patient Dietary Evaluation Review Comments: 1) Ergocalciferol 50,000IU weekly 2) Jose L 1 pk daily, MVI w/ mineral 1 tab, Vit C 500mg BID, Zinc sulfate 220mg daily x 10 days 3) Advance to [id number] + renal special 80gm protein diet 4) Continue current plan of care Expected Outcomes/Goals: Advance diet to meet at least 75% estimated needs FU 2-3 days CC Plasma Assessment Blood Product Administration S: 11:05 MARC REEDER MD Dec 22, 2024 21:00
--- NOTE | 2024-12-22 21:19 | DVHPN2 ---
Consult Progress Note Date Seen: Dec 22, 2024 Subjective Patient reports: Other (continues to have fevers as high as 102 on dopamine , on and off levofed . appears weak , not producing nay urine , soft abdomen and having formed bowel moveements ) Objective vital signs Vital Sign Date Time Temp Pulse Resp B/P (MAP) Pulse Ox O2 Delivery O2 Flow Rate FiO2 12/22/24 20:15 74 12 108/58 (75) 12/22/24 20:00 100 Nasal Cannula* 3 32 12/22/24 20:00 97.8 97.8 Total Intake and Output 12/21/24 12/21/24 12/22/24 15:00 23:00 07:00 Intake Total 351.304 ml 241.304 ml 408.992 ml Output Total 10 ml 15 ml Balance 351.304 ml 231.304 ml 393.992 ml medications Current Medications Medications Dose Ordered Sig/Shavon Route Start Time Stop Time Status Last Admin Dose Admin Acetaminophen 650 mg Q6HP PRN PO 12/04/24 03:30 12/22/24 04:21 650 MG Ondansetron HCl 4 mg Q4HP PRN IV 12/04/24 03:30 12/22/24 03:16 4 MG Pantoprazole Sodium 40 mg BID IV 12/04/24 06:45 12/22/24 08:00 40 MG Calcium Acetate 1,334 mg TIDWMEALS PO 12/08/24 12:00 12/22/24 16:17 1,334 MG Gabapentin 200 mg HS PO 12/10/24 22:00 12/21/24 21:52 200 MG Multivit/Ca Carb/ B Cmplx/FA/Prenat 1 tab DAILY PO 12/12/24 10:00 12/22/24 08:01 1 TAB Enteral Nutritional Formula 27.5 gm DAILY PO 12/12/24 10:00 12/14/24 09:26 27.5 GM Ergocalciferol 50,000 unit Q7D PO 12/12/24 08:45 12/12/24 09:38 50,000 UNIT Enteral Nutritional Formula 240 ml BIDWM PO 12/13/24 08:00 12/17/24 08:21 240 ML Midodrine 15 mg TID@0600,1200,1800 PO 12/15/24 12:00 12/22/24 16:18 15 MG Sodium Chloride 10 ml QSHIFT@10,22 IV 12/16/24 22:00 12/22/24 08:01 10 ML Acetaminophen 325 mg Q6HP PRN MA 12/17/24 06:45 Epoetin Tonio-epbx 10,000 unit 2XW SC 12/17/24 12:00 Norepinephrine Bitartrate 250 ml @ 0.938 mls/ hr Q24H IV 12/18/24 06:30 12/22/24 05:42 0.938 MLS/HR Octreotide Acetate 100 mcg TID SUBCUT 12/18/24 14:00 12/22/24 12:28 100 MCG Dopamine HCl/ Dextrose 250 ml @ 6.413 mls/ hr Q24H IV 12/18/24 09:45 12/22/24 03:59 6.413 MLS/HR Citalopram Hydrobromide 10 mg DAILY PO 12/20/24 10:00 12/22/24 08:01 10 MG Morphine Sulfate 2 mg Q4H PRN IV 12/20/24 15:30 12/22/24 03:15 2 MG Morphine Sulfate 4 mg Q4HPRN PRN IV 12/20/24 15:30 Enteral Nutritional Formula 1,000 ml 30ML/HR GT 12/20/24 18:00 12/21/24 22:15 1,000 ML Diagnostic Test (Pha) 1 strip Q6HR 12/22/24 06:00 12/22/24 16:18 1 STRIP Insulin Human Regular Q6HR SC 12/22/24 06:00 12/22/24 16:19 2 UNITS Dextrose 50 ml UD PRN IV 12/22/24 06:30 Lactulose 30 ml BID PO 12/22/24 22:00 Meropenem 50 ml @ 17 mls/hr DAILY IV 12/23/24 10:00 Daptomycin 0 ml @ 0 mls/hr PER PHARMACY IV 12/22/24 14:00 laboratory and microbiology Laboratory Tests 12/22/24 04:15 Test 12/22/24 04:15 Range/Units Serum Glucose 216 H 74-106 mg/dL Problem List/Assessment/Plan Problems(with codes): (1) Elevated d-dimer (2) Non-STEMI (non-ST elevated myocardial infarction) (3) Elevated troponin (4) Acute on chronic diastolic heart failure (5) Acute renal disease (6) Anemia of chronic disease (7) Elevated liver enzymes (8) Lymphoma (9) Acalculous cholecystitis (10) Neutropenic fever (11) Septic shock (12) Acute CVA (cerebrovascular accident) Problem List/Assessment/Plan Physical Exam Patient lying in bed, in no acute distress General: Lucid, afebrile, mucosae are moist. Mucositis of tongue Cardiovascular: Normal S1 and S2. No murmurs, gallops or rubs. Sternotomy is stable, with no secretions or erythema, no cracking Respiratory: Normal ventilation mechanics. Clear lung sounds on auscultation. With requirement of nasal cannula at 4 liters/minute Abdomen: Soft, nontender, no organomegaly, normal bowel sounds MSK/skin: Mobilizes 4 limbs. Skin is dry and warm. Decubitus ulcer grade 3, with mild yellow-greenish secretion Neurological: Oriented in 3 spheres. Presents motor weakness of four limbs predominantly on right side, no motor no sensitive deficits. Bradypsychia. Pupils are isocoric and reactive Assessment Febrile neutropenia Questionable typhlitis Hodgkin lymphoma Rule out opportunistic infection Ruled out cholangitis Rule out mediastinitis Transaminitis Ruled out hemolysis Multiple CVAs - Ruled out infective endocarditis GOPAL hemodynamically mediated on CKD - currently on hemodialysis Pancytopenia - status post lymph node resection and bone marrow biopsy (rule out malignancy) Coronary artery disease status post triple-vessel CABG complicated with cardiac arrest and multiple strokes Decubitus ulcer - present on admission acute cholagitis 12/14: on/off levophed, leukocytosis is improving, 12/15: rising levophed needs 12/16: still having fevers, suspect functional neutropenia 12/17: diarrhea slowly improving coming off pressors 12/18 rising biling, on/off pressors 12/19 sp lower back debridement 12/20: micafungin stopped 12/21: US w. acute cholangitis 12/22: leukocytosis is improving , however is still hypertensive and having fevers , reji dimitris continues to rise Plan/Recommendation - recommend checking lactic acid if pressures continue to rise and repeating blood cultures - continue to transfuse for low platelets under 50 , low hemoglobin under 7 Ordered QuantiFERON (tuberculosis suspicion is low), HIV (negative), cocci serology, Aspergillus and histoplasmosis antibodies, wound culture (preliminary yeast, Streptococcus viridans and Enterococcus), and sputum culture (normal oropharyngeal la). All three blood cultures sets negative at the moment. Urine culture negative. MRSA swabs were negative. Low probability of MRSA pneumonia. If considering infection source, high suspicion of neutropenic enterocolitis/typhlitis. Per primary team, lymph node biopsy revealed classic Hodgkin lymphoma. Heme oncologist specialist on board. We will continue empiric IV antibiotics (meropenem and daptomycin > current therapy will adequately cover for acute cholangitis Currently patient is on meropenem, daptomycin (to cover MRSA sepsis, not pneumonia), and micafungin. May consider switching to voriconazole depending on results of fungal serology Positive GGT (approximately 400), elevated alkaline phosphate probable biliary origin. MRCP ruled out bile duct or gallbladder distention, evidence trace ascites and splenomegaly. Negative direct Farrukh and haptoglobin, ruled out hemolysis Mediastinitis still not ruled out due to imaging without IV contrast, but diagnosis is highly unlikely due to stable sternotomy with no presence of secretion. Biopsy of lymph node showed activated T lymphocytes (nonconclusive). Pending bone marrow biopsy results Appreciate input of neurologist, precision layout worker, head cashier and vp specialist. Evaluate continuing DAPT per precision layout worker recommendation Rest of recommendations per primary team. Discussed plan with Dr. Reeder, patient and nurses: Have ordered complementary study for opportunistic infections, mostly negative, some pending. Patient is currently under broad spectrum empiric IV antibiotics and antifungal medication (Cefepime, daptomycin and micafungin), we will modify antibiotic treatment as complementary workup is resulted. Lymph node biopsy shows probable classic Hodgkin lymphoma, Heme-Onc input appreciated. Patient has poor prognosis Plan discussed with: Other Dietary Evaluation Review Comments: 1) Ergocalciferol 50,000IU weekly 2) Jose L 1 pk daily, MVI w/ mineral 1 tab, Vit C 500mg BID, Zinc sulfate 220mg daily x 10 days 3) Advance to [id number] + renal special 80gm protein diet 4) Continue current plan of care Expected Outcomes/Goals: Advance diet to meet at least 75% estimated needs FU 2-3 days CC Plasma Assessment Blood Product Administration S: 11:05 MARC REEDER MD Dec 22, 2024 21:19
[2024-12-22] MEDS: LACTULOSE 20Gm/30ML SOLN PO SCH (21:41)
--- NOTE | 2024-12-22 23:58 | DVHINCON2 ---
Date of service: Dec 22, [address] Salas Reason for Consultation Elevated bilirubin possible acalculous cholecystitis History of Present Illness 59 M with a past medical history of coronary artery disease status post CABG in October 2024, ischemic stroke oct 2024, status post bed bound and chronic indwelling Jones, hypertension, and hyperlipidemia. He was brought to the ER by the family with a chief complaint of heavy breathing, fever, chills, and anuria for the past 3 days. Per the daughter at bedside, the patient had never followed up with urology or cardiology after he was discharged from this facility on 11/07/24. He usually makes 1600 cc of urine a day. Per daughter, patient has a wound in his back and is also draining a white pus-like substance. Patient also reported dysuria and abdominal discomfort. He also reports heavy breathing and mild nonproductive cough. On arrival, patient was febrile at 101.2F, tachycardic, blood pressure 144/77, and requiring 4 L oxygen supplementation. White cell count was 3.6, hemoglobin 8.8, and hematocrit 23. Patient had hyperkalemia, potassium was 6 which downtrended to 5.4. Creatinine was 2.9 and BUN 77. Patient's Jones catheter was removed in ED after being in place for more than a month, the patient does not urinate on his own, bladder scan showed empty bladder, nephrology was consulted. Chest x-ray shows bibasilar consolidation. The patient has mildly elevated transaminases. Cardiology consulted given CT findings of substernal soft tissue density: new echo ordered, azithromycin was added to cover atypicals and hyperkalemia protocol was done, patient is having febrile neutropenia, CT scan of abdomen showed right groin lymphadenopathy, lymphadenopathy biopsy was done. 1 RBC was transfused per cardiology. 12/06/24 at 5:30 pm, patient had an episode of AMS, weakness, and hypotension, increased left leg weakness and left facial droop. CT scan negative for stroke or hemorr jeovany, patient was placed on Levophed and weaned off at 8 pm, fluids IV 100 cc during the night, today x-ray showed mild congestion. IV fluids reduced to 60cc and furosemide IV was started. New MRI showed multiple small strokes in different places; probably cardiembolic etiology. Neurology Dr. Cabral, stated no need for CTA or thrombectomy, also transfer to [facility] was planned but according to the center he had his CABG, patient can be managed in [facility]. Also, nephrology consulted. EMILY was done and no vegetations seen. Worsening renal function; nephrology will discuss possible hemodialysis with the patient and his family. EMILY negative, neupogen started, patient had fever last night, new pancultures, renal function is trending high, dialysis catheter placed on the left, new K normal on place, possible HD. ID was consulted, vancomycin was changed for daptomycin, further studies were ordered to study possible source of infection, WBC is trending high, last fever 12/10 4pm, HD was done but patient needed levophed 2mcg, bilirubin is trending high, EPO was started by Nephro. lymph node biopsy: Hodgkin lymphoma, diagnosis disccused with family, patient still having fevers and diarrhea, necrotic ulcer debrided GI was consulted today because of elevated liver enzymes, gallbladder wall thickening of the ultrasound and suspected acute acalculous cholecystitis.Hepatitis panel and NOLBERTO are negative Past Medical History Past medical history: diabetes, hypertension, hyperlipidemia, [place], and s ignificant CAD, recent CVA Past Surgical History Surgical history: Quadruple bypass on October 21, 2004 Family History: Cardiovascular disease G8 MOTHER G8 FATHER FH: alcohol abuse G8 FATHER FHx: lung disease G8 FATHER Sepsis Suicide G8 MOTHER Allergies: Coded Allergies: Shellfish Allergy (Verified Allergy, Unknown, 12/10/24) Uncoded Allergies: Fish, ShellFish, Milk (Allergy, Unknown, 11/01/24) Home Meds Active Scripts Clopidogrel Bisulfate (Plavix) 75 Mg Tab, 1 TAB PO DAILY for 21 Days, #21 TAB 1 Refill Prov:MARIA C DÍAZ [employer]NAGER 11/06/24 Tramadol HCl (Tramadol HCl) 50 Mg Tab, 50 MG PO Q8HP PRN for 5 Days, #15 TAB Prov:MARIA C DÍAZ [employer]EDIT [employer] MANAGER 11/06/24 Reported Medications Lisinopril (Lisinopril) 10 Mg Tab, 1 TAB PO DAILY 12/04/24 Benzonatate (Benzonatate) 100 Mg Cap, 1 CAP PO TID 12/04/24 Tramadol Hcl (Tramadol Hcl) 50 Mg Tab, 1 TAB PO Q8HPRN PRN 12/04/24 Atorvastatin Calcium (ATORVASTATIN CALCIUM) 80 Mg Tab, 80 HS 12/04/24 Metoprolol Succinate (Metoprolol Succinate Er) 25 Mg Tab, 1 TAB PO DAILY 12/04/24 Clopidogrel Bisulfate (CLOPIDOGREL) 75 Mg Tab, 1 TAB PO DAILY 12/04/24 Tamsulosin Hcl (Tamsulosin Hcl) 0.4 Mg Cap, 0.4 MG PO QPM for 30 Days, MG 11/02/24 Metoprolol Tartrate (Metoprolol Tartrate) 25 Mg Tab, 0.5 TAB PO BID, #180 TAB 1 Refill 11/02/24 Melatonin (KP MELATONIN) 3 Mg Tab, 1 TAB PO QPM, #30 TAB 2 Refills 11/02/24 Heparin Sodium (Porcine) (Heparin Sodium) 5,000 Unit/0.5 Ml Inj, 5000 UNIT IJ, INJ 11/02/24 Furosemide (Lasix) 20 Mg Tb, 1 TAB PO BID, #90 TAB 1 Refill 11/02/24 Famotidine (Famotidine) 20 Mg Tab, 20 MG PO BID for 30 Days, MG 11/02/24 Aspirin (Aspirin) 81 Mg Chw, 81 MG PO, TAB.CHEW 11/02/24 Atorvastatin Calcium (Lipitor) 80 Mg Tab, 1 TAB PO DAILY, #30 TAB 5 Refills 11/02/24 Metformin Hydrochloride (Metformin Hcl) 500 Mg Tab, 500 MG PO DAILY for 30 Days, MG 11/01/24 Atorvastatin Calcium (ATORVASTATIN CALCIUM) 10 Mg Tab, 10 MG PO DAILY, TAB 11/01/24 Lisinopril (Lisinopril) 10 Mg Tab, 1 TAB PO DAILY for 60 Days, #60 10/11/24 Current Medications Current Medications Medications (Trade) Dose Ordered Sig/Shavon Route PRN Reason Start Time Stop Time Status Last Admin Diagnostic Test (Pha) (Accu-Chek Comfort Curve T) 1 strip Q6HR 12/22/24 06:00 12/22/24 16:18 Insulin Human Regular (InsuLIN R) Q6HR SC 12/22/24 06:00 12/22/24 16:19 Dextrose 50 ml UD PRN IV Blood Sugar LESS THAN 60 12/22/24 06:30 Lactulose 30 ml BID PO 12/22/24 22:00 12/22/24 21:41 Meropenem 50 ml @ 17 mls/hr DAILY IV 12/23/24 10:00 Daptomycin / Sodium Chloride 50 ml @ 100 mls/hr DAILY IV 12/23/24 10:00 12/22/24 13:53 DC Daptomycin / Sodium Chloride 50 ml @ 100 mls/hr DAILY IV 12/23/24 10:00 12/22/24 13:53 DC Daptomycin 0 ml @ 0 mls/hr PER PHARMACY IV 12/22/24 14:00 Vital Signs Vital Signs Date Time Temp Pulse Resp B/P (MAP) Pulse Ox O2 Delivery O2 Flow Rate FiO2 12/22/24 23:15 89 11 128/69 (88) 12/22/24 22:15 100 12/22/24 22:00 Nasal Cannula* 3 32 12/22/24 20:00 97.8 97.8 Physical Exam General: Lucid, afebrile, mucosae are moist. Mucositis of tongue;Generalized anasarca Cardiovascular: Normal S1 and S2. No murmurs, gallops or rubs. Sternotomy is stable, with no secretions or erythema, no cracking Respiratory: Clear lung sounds on auscultation. With requirement of nasal cannula at 4 liters/minute Abdomen: Soft, nontender, no organomegaly, normal bowel sounds MSK/skin: Mobilizes 4 limbs. Skin is dry and warm. Decubitus ulcer grade 3, with mild yellow-greenish secretion; Neurological: altered lethargic and not responsive Labs/Diagnostic Data Labs Test 12/22/24 04:15 12/21/24 04:30 12/20/24 04:56 12/19/24 08:38 Range/Units White Blood Count 10.0 # 4.4-10.8 10^3/uL Red Blood Count 2.69 L 4.5-5.90 10^6/uL Hemoglobin 7.4 L 13.5-17.5 g/dL Hematocrit 21.9 L 41.0-53.0 % Mean Corpuscular Volume 81.7 80.0-100.0 fL Mean Corpuscular Hemoglobin 27.4 L 28.0-32.0 pg Mean Corpuscular Hemoglobin Concent 33.5 32.0-36.0 g/dL Red Cell Distribution Width 18.7 H 11.8-14.3 % Platelet Count 49 L 140-450 10^3/uL Mean Platelet Volume 10.0 6.9-10.8 fL Neutrophils (%) (Auto) 37.0-80.0 % Lymphocytes (%) (Auto) 10.0-50.0 % Monocytes (%) (Auto) 0.0-12.0 % Basophils (%) (Auto) 0.0-2.0 % Neutrophils # (Auto) 1.6-8.6 10 ^3/uL Lymphocytes # (Auto) 0.4-5.4 10 ^3/uL Monocytes # (Auto) 0-1.3 10 ^3/uL Differential Total Cells Counted 100.0 100 Neutrophils % (Manual) 93 H 37.0-80.0 Band Neutrophils % (Manual) 3 Lymphocytes % (Manual) 1 L 10.0-50.0 Monocytes % (Manual) 3 0-12 Eosinophils % (Manual) 0 0-7 Basophils % (Manual) 0 0.0-2.0 Metamyelocytes % (manual) 0 Myelocytes % (Manual) 0 Promyelocytes % (Manual) 0 Blast Cells % (Manual) 0 Reactive Lymphocytes 0 Smudge Cells 4 /100 WBC Platelet Estimate Decreased Sodium Level 134 L 136-145 mmol/L Potassium Level 4.2 3.5-5.1 mmol/L Chloride Level 97 L 98-107 mmol/L Carbon Dioxide Level 24 20-31 mmol/L Anion Gap 13 5-15 Blood Urea Nitrogen 62 #H 9-23 mg/dL Creatinine 3.85 H 0.700-1.30 mg/dL Glomerular Filtration Rate Calc 17 >90 mL/min BUN/Creatinine Ratio 16.1 10.0-20.0 Serum Glucose 216 H 74-106 mg/dL Calcium Level 6.6 L 8.7-10.4 mg/dL Total Bilirubin 17.3 H 0.2-1.0 mg/dL Aspartate Amino Transferase (AST) 63 H 13-40 U/L Alanine Aminotransferase (ALT) 24 7-40 U/L Alkaline Phosphatase 576 H 46-116 U/L Ammonia 31 11-32 umol/L Total Protein 5.0 L 5.7-8.2 g/dL Albumin 2.8 L 3.2-4.8 g/dL Ovalocytes Few [place] Cells Few Schistocytes Few Large Platelets Few Giant Platelets Few Anisocytosis (manual) Slight Target Cells Few Stomatocytes Few Prothrombin Time 17.8 H 9.3-11.8 sec Prothrombin Time INR 1.78 H 0.9-1.15 Activated Partial Thromboplast Time 56.9 H 24.5-34.5 SEC Phosphorus Level 4.7 2.4-5.1 mg/dL Cortisol AM Sample 45.02 H 5.27-22.45 ug/dL Test 12/18/24 04:58 12/17/24 12:00 12/17/24 05:11 12/14/24 06:36 Range/Units Eosinophils (%) (Auto) 0.0 0.0-7.0 % Eosinophils # (Auto) 0 0-0.8 10 ^3/uL Basophils # (Auto) 0 0-0.2 10 ^3/uL Nucleated Red Blood Cells 0.0 % Urine Creatinine 38.35 30.0-125.0 mg/dL Urine Sodium 86 40-220 mmol/L Tear Drop Cells Few Magnesium Level 2.3 1.6-2.6 mg/dL Poikilocytosis (manual) Slight Test 12/13/24 04:29 12/12/24 14:12 12/12/24 13:20 12/12/24 12:00 Range/Units Direct Bilirubin 4.8 H <0.3 mg/dL Free [place] Light Chains, Quant 137.6 H 3.3-19.4 mg/L Free [place]/Lambda Light Chain Ratio 0.84 0.26-1.65 Stool Occult Blood Negative Negative Stool Occult Blood Sample #3 Negative Stool for White Cells Moderate Miscellaneous Referred Test (Refrg) Sent to [facility] Test 12/11/24 19:55 12/11/24 11:21 12/11/24 04:57 12/10/24 21:48 Range/Units Haptoglobin 221 29-370 mg/dL POC Glucose 93 70-106 mg/dl Random Vancomycin Level 15.6 H 5-10 ug/mL Gamma Glutamyl Transpeptidase 400 H <73 U/L Creatine Kinase 56 46-171 U/L Blastomyces Ab Immunodiffusion Negative Neg:<1:1 Coccidioides Antibody (Comp Fix) <1:2 <1:2 HIV (1&2) Antibody Negative Negative Aspergillus flavus Antibody Negative Neg:<1:1 Aspergillus fumigatus Antibody Negative Neg:<1:1 Aspergillus niger Antibody Negative Neg:<1:1 TB Test (QFT) Gold Plus Indeterminate H Negative TB Test (QFT) Nil >10.00 . IU/mL TB Test (QFT) Mitogen >10.00 . IU/mL TB Test (QFT) Antigen 1 >10.00 . IU/mL TB Test (QFT) Antigen 2 >10.00 . IU/mL TB Test (QFT) Criteria Comment . Test 12/10/24 05:00 12/08/24 18:30 12/08/24 05:04 12/07/24 20:15 Range/Units Iron Level 34 L 65-175 ug/dL Total Iron Binding Capacity 123 L 250-425 ug/dL Percent Iron Saturation 27.6 20-55 % Ferritin > 3300.0 H 22-322 ng/mL Urine Color Yellow Yellow Urine Clarity Turbid H Clear Urine pH 5.0 5.0-9.0 Urine Specific [place] 1.014 1.001-1.035 Urine Protein 1+ H Negative Urine Ketones Negative Negative Urine Blood 3+ H Negative /uL Urine Nitrite Negative Negative Urine Bilirubin Negative Negative Urine Urobilinogen Normal Negative mg/dL Urine Leukocyte Esterase Negative Negative /uL Urine RBC 252 0 - 3 /hpf Urine Microscopic WBC 6 H 0-3 /HPF Urine Squamous Epithelial Cells None seen <5 /hpf Urine Bacteria None seen None Seen /hpf Urine Glucose Normal Normal mg/dL Lactic Acid Level 1.0 0.4-2.0 mmol/L B-Type Natriuretic Peptide 374.68 0-100 pg/mL Hepatitis A IgM Antibody Negative Hepatitis B Surface Antigen Negative Negative Hepatitis B Core IgM Antibody Negative Negative Hepatitis C Antibody Negative Negative Test 12/07/24 13:55 12/07/24 04:47 12/06/24 10:37 12/06/24 04:40 Range/Units Triglycerides Level 141 < 150 mg/dL Cholesterol Level 77 < 200 mg/dL LDL Cholesterol 20 < 100 mg/dL HDL Cholesterol 9 L 40-59 mg/dL Hepatitis B Core Total Antibody Negative Negative Globulin (PEP) 3.7 2.2-3.9 g/dL Albumin/Globulin Ratio 0.4 L 0.7-1.7 Tldvx-5-Nvvrbmujb 0.5 H 0.0-0.4 g/dL Hicrm-4-Vmlwbmfap 1.2 H 0.4-1.0 g/dL Beta Globulins 0.9 0.7-1.3 g/dL Gamma Globulins 1.2 0.4-1.8 g/dL Protein Electrophoresis M-Rehan Not observed Not Observed g/dL Protein Electrophoresis Note Comment . Anti-Cyclic Citrullinated Peptide 7 0-19 units Anti-Nuclear Antibody Screen Negative Negative Cytomegalovirus IgG Antibody >10.00 H 0.00-0.59 U/mL Cytomegalovirus IgM Antibody <30.0 0.0-29.9 AU/mL Christine-Deshpande Virus Capsid Ag IgG Ab >600.0 H 0.0-17.9 U/mL Lactate Dehydrogenase 322 H 120-246 U/L Thyroid Stimulating Hormone (TSH) 0.70 0.55-4.78 uIU/mL Hepatitis B Surface Antibody Negative Negative Test 12/05/24 21:10 12/05/24 18:30 12/05/24 12:11 12/05/24 05:13 Range/Units Troponin I High Sensitivity 70 *H </=54 ng/L Blood Gas Specimen Type Arterial Blood Gas Sample Site Right radial Blood Gas Patient Temperature 37.0 Arterial Blood Date Drawn [id number] Arterial Blood pH 7.438 7.350-7.450 Arterial Blood Partial Pressure CO2 27.0 L 35.0-48.0 mmHg Arterial Blood Partial Pressure O2 78.8 L 83.0-108.0 mmHg Arterial Blood HCO3 17.8 L 21.0-28.0 mmol/L Arterial Blood Oxygen Saturation 94.5 94.0-98.0 % Arterial Blood Base Excess -5.4 L -2.0-3.0 mmol/L Arterial Blood Oxyhemoglobin 93.4 L 94.0-98.0 % Arterial Blood Carboxyhemoglobin 0.3 L 0.5-1.5 % Arterial Blood Methemoglobin 0.9 0.0-1.5 % Khadar Test Modified Blood Gas Total Hemoglobin 8.60 L 13.5-17.5 g/dL Blood Gas Liter Flow 6.00 Blood Gas Modality Nasal cannula FiO2 % 44.0 Erythrocyte Sedimentation Rate 88 H 0-20 mm/hr C-Reactive Protein High Sensitivity 15.65 H <1.0 mg/dL Test 12/04/24 16:50 12/04/24 07:00 12/04/24 05:30 12/04/24 04:50 Range/Units Urine Amorphous Crystals Few None Seen /hpf Urine Protein/Creatinine Ratio 1.84 Urine Total Protein 129.7 H 1-14 mg/dL Urine Opiates Screen Neg NEGATIVE Urine Fentanyl Screen Neg NEGATIVE Urine Barbiturates Screen Neg NEGATIVE Urine Phencyclidine Screen Neg NEGATIVE Urine Amphetamines Screen Neg NEGATIVE Urine Benzodiazepines Screen Neg NEGATIVE Urine Cocaine Screen Neg NEGATIVE Urine Cannabinoids Screen Neg NEGATIVE Reticulocyte Count (auto) 0.77 0.5-1.5 % D-Dimer, Quantitative 3.43 H 0.0-0.49 mg/L FEU Parathyroid Hormone (Intact) 15.7 L 18.4-80.1 pg/mL Influenza Type A Antigen Negative Negative Influenza Type B Antigen Negative Negative SARS-CoV-2 Antigen (Rapid) Negative NEGATIVE Hemoglobin A1c 5.9 H <5.7 % A1C Vitamin B12 Level 1395 H 211-911 pg/mL Vitamin D 25-Hydroxy 11.9 L 30.0-100 ng/mL Microbiology Date/Time Source Procedure Growth Status 12/20/24 12:54 Back Gram Stain - Final Resulted 12/20/24 12:54 Back Anaerobic Culture - Preliminary Resulted 12/20/24 12:54 Back Aerobic Culture - Preliminary Resulted 12/12/24 13:20 Stool Stool Culture - Final Complete 12/12/24 13:20 Stool Shiga Toxin I & II - Final Complete 12/11/24 15:31 Sputum Gram Stain - Final Complete 12/11/24 15:31 Sputum Respiratory Culture - Final Complete 12/10/24 10:17 Voided Urine Urine Culture - Final Complete 12/08/24 14:39 Blood Blood Culture - Final NO GROWTH AFTER 5 DAYS OF INCUBATION. Complete Gallbladder Ultrasound IMPRESSION: Right medical renal disease. Severely thickened gallbladder wall. No gallstones. Small bilateral pleural effusions. Small volume ascites. MRCP IMPRESSION: Limited examination secondary to patient motion artifact. MRCP sequences are motion degraded. Gallbladder is decompressed without appreciable stones or sludge. Small volume ascites. Splenomegaly. CT SCAN abd pelvis IMPRESSION: Retroperitoneal lymphadenopathy with a 3.3 cm in the right groin. Lymphoma is a consideration. Problems(with codes): (1) Elevated liver enzymes (2) Acalculous cholecystitis (3) Lymphoma (4) Non-STEMI (non-ST elevated myocardial infarction) (5) Elevated troponin (6) Acute on chronic diastolic heart failure (7) Neutropenic fever (8) Septic shock (9) Acute CVA (cerebrovascular accident) (10) Weakness (11) Fever (12) Hyperkalemia (13) Acute renal disease (14) Anemia of chronic disease Plan/Recommendation Assessment and plan Patient has likely developed acute on chronic acalculous cholecystitis because of prolonged illness Although his bilirubin is rising his transaminases and alkaline phosphatase are trending downwards I do not believe the patient has acute cholangitis although obstructive jaundice was a consideration because of elevated bilirubin and alkaline phosphatase; imaging studies have been negative Check a CA 19 -9 r/o pancreatic cancer; lymph nodes with lymphoma involvementcould also be causing partial obstructive jaundice Patient is also being treated for sepsis; Wound culture had shown Enterococcus faecalis. He also had a recent coronary artery bypass grafting surgery if the patient continues to spike fevers it would be appropriate to get IR consulted discuss the possibility of a cholecystostomy Patient is medically not stable for any ERCP procedure at this time Continue broad-spectrum antibiotics as advised by ID Prognosis remains guarded Plan discussed with: Other (LINDA Nurse and Dr Salas) LASHONDA DOYLE MD Dec 22, 2024 23:58
[2024-12-23] VITALS (104 sets, daily range): BP systolic 80–125; BP diastolic 49–74; PULSE 75–113; RESP 8–17; TEMP 97.6–100.7; O2SAT 92–100
[2024-12-23 06:29] LABS: Alanine Aminotransferase 12 U/L (7-40); Anion Gap 14 (5-15); Carbon Dioxide 22 mmol/L (20-31); Chloride 99 mmol/L (98-107); Magnesium 2.3 mg/dL (1.6-2.6); Potassium 4.3 mmol/L (3.5-5.1)
[2024-12-23 06:32] LABS: BUN/Creatinine Ratio 16.9 (10.0-20.0)
[2024-12-23 07:06] LABS: Albumin 2.6 g/dL (3.2-4.8); Alkaline Phosphatase 592 U/L (46-116); Aspartate Aminotransferase 73 U/L (13-40); Bilirubin, Total 18.9 mg/dL (0.2-1.0); Blood Urea Nitrogen 75 mg/dL (9-23); Calcium 6.8 mg/dL (8.7-10.4); Glucose 73 mg/dL (74-106); Phosphorus 5.9 mg/dL (2.4-5.1); Sodium 135 mmol/L (136-145); Total Protein 5.1 g/dL (5.7-8.2)
[2024-12-23 07:09] LABS: Lactic Acid w/Reflex 2.1 mmol/L (0.4-2.0)
[2024-12-23] MEDS: MEROPENEM 500MG IVPB 50 ML IV SCH ×2 (07:24→10:45)
[2024-12-23] MEDS ORDERED: DAPTOmycin 0 MG in SODIUM CHL 0.9% 50 ML IV SCH (10:00)
[2024-12-23 10:46] LABS: Hematocrit 24.2 % (41.0-53.0); Mean Corpuscular Hemoglobin 26.9 pg (28.0-32.0); Mean Corpuscular Hgb Conc. 33.1 g/dL (32.0-36.0); Mean Corpuscular Volume 81.2 fL (80.0-100.0); Red Blood Cells 2.98 10^6/uL (4.5-5.90); Red Cell Distribution Width 18.9 % (11.8-14.3); White Blood Cell 9.4 10^3/uL (4.4-10.8)
[2024-12-23 10:50] LABS: Basophils % (manual) 0 (0.0-2.0); Blast Cells 0; Eosinophils % (manual) 0 (0-7); Metamyelocytes % 0; Myelocytes % 0; Promyelocytes % 0; Reactive Lymphocytes 0
--- NOTE | 2024-12-23 11:02 | DVHPN2 ---
Progress Note Date Seen: Dec 23, 2024 Has the PT tested + for MRSA If YES, has PT been informed?: No Medical Necessity Reason Pt with a Central, PICC or Fol: Yes The following are medically ne: Pond Catheter Reason for pond catheter: Bladder Retention/Obstruc, Strict I&O Subjective Other Systems: Patient seen and examined by myself today in follow-up, at the bedside Objective vital signs Vital Sign Date Time Temp Pulse Resp B/P (MAP) Pulse Ox O2 Delivery O2 Flow Rate FiO2 12/23/24 10:30 92 11 95/53 (67) 100 12/23/24 10:15 100.1 100.1 12/23/24 09:55 Nasal Cannula* 3 32 Total Intake and Output 12/22/24 12/22/24 12/23/24 15:00 23:00 07:00 Intake Total 54.117 ml 455.054 ml 405.367 ml Output Total 20 ml 20 ml Balance 54.117 ml 435.054 ml 385.367 ml medications Current Medications Medications Dose Ordered Sig/Shavon Route Start Time Stop Time Status Last Admin Dose Admin Acetaminophen 650 mg Q6HP PRN PO 12/04/24 03:30 12/23/24 09:11 650 MG Ondansetron HCl 4 mg Q4HP PRN IV 12/04/24 03:30 12/22/24 03:16 4 MG Pantoprazole Sodium 40 mg BID IV 12/04/24 06:45 12/23/24 07:22 40 MG Calcium Acetate 1,334 mg TIDWMEALS PO 12/08/24 12:00 12/23/24 07:23 1,334 MG Gabapentin 200 mg HS PO 12/10/24 22:00 12/22/24 21:41 200 MG Multivit/Ca Carb/ B Cmplx/FA/Prenat 1 tab DAILY PO 12/12/24 10:00 12/23/24 07:23 1 TAB Enteral Nutritional Formula 27.5 gm DAILY PO 12/12/24 10:00 12/14/24 09:26 27.5 GM Ergocalciferol 50,000 unit Q7D PO 12/12/24 08:45 12/12/24 09:38 50,000 UNIT Enteral Nutritional Formula 240 ml BIDWM PO 12/13/24 08:00 12/17/24 08:21 240 ML Midodrine 15 mg TID@0600,1200,1800 PO 12/15/24 12:00 12/23/24 05:58 15 MG Sodium Chloride 10 ml QSHIFT@10,22 IV 12/16/24 22:00 12/23/24 07:22 10 ML Acetaminophen 325 mg Q6HP PRN NC 12/17/24 06:45 Epoetin Tonio-epbx 10,000 unit 2XW SC 12/17/24 12:00 Norepinephrine Bitartrate 250 ml @ 0.938 mls/ hr Q24H IV 12/18/24 06:30 12/23/24 02:09 0.938 MLS/HR Octreotide Acetate 100 mcg TID SUBCUT 12/18/24 14:00 12/23/24 05:59 100 MCG Dopamine HCl/ Dextrose 250 ml @ 6.413 mls/ hr Q24H IV 12/18/24 09:45 12/23/24 02:08 6.413 MLS/HR Citalopram Hydrobromide 10 mg DAILY PO 12/20/24 10:00 12/22/24 08:01 10 MG Morphine Sulfate 2 mg Q4H PRN IV 12/20/24 15:30 12/22/24 03:15 2 MG Morphine Sulfate 4 mg Q4HPRN PRN IV 12/20/24 15:30 Enteral Nutritional Formula 1,000 ml 30ML/HR GT 12/20/24 18:00 12/23/24 02:05 1,000 ML Diagnostic Test (Pha) 1 strip Q6HR 12/22/24 06:00 12/23/24 05:53 1 STRIP Insulin Human Regular Q6HR SC 12/22/24 06:00 12/22/24 16:19 2 UNITS Dextrose 50 ml UD PRN IV 12/22/24 06:30 Lactulose 30 ml BID PO 12/22/24 22:00 12/23/24 07:23 30 ML Daptomycin 0 ml @ 0 mls/hr PER PHARMACY IV 12/22/24 14:00 Meropenem 50 ml @ 17 mls/hr Q12HR IV 12/23/24 10:00 12/23/24 10:45 17 MLS/HR Daptomycin 500 mg/ Sodium Chloride 50 ml @ 100 mls/hr Q48H IV 12/23/24 15:00 Examination: LUNGS:Normal, CVS:Normal, MSK:Abnormal laboratory and microbiology Laboratory Tests 12/23/24 10:08 12/23/24 04:57 Test 12/23/24 04:57 Range/Units Serum Glucose 73 #L 74-106 mg/dL Microbiology Date/Time Source Procedure Growth Status 12/20/24 12:54 Back Gram Stain - Final Resulted 12/20/24 12:54 Back Anaerobic Culture - Preliminary Resulted 12/20/24 12:54 Back Aerobic Culture - Preliminary Resulted 12/12/24 13:20 Stool Stool Culture - Final Complete 12/12/24 13:20 Stool Shiga Toxin I & II - Final Complete 12/11/24 15:31 Sputum Gram Stain - Final Complete 12/11/24 15:31 Sputum Respiratory Culture - Final Complete 12/10/24 10:17 Voided Urine Urine Culture - Final Complete 12/08/24 14:39 Blood Blood Culture - Final NO GROWTH AFTER 5 DAYS OF INCUBATION. 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 hemodialysis s/p BM biopsy pending results and Lymph node biopsy showing Hodgkin's lymphoma s/p tunneled catheter for dialysis Low-dose dopamine Octreotide IV Levophed for blood pressure support We will continue to follow up I discussed my plan of care with and the primary nurse at the bedside Plan discussed with: Spouse, Other (Nurse) Dietary Evaluation Review Comments: 1) Ergocalciferol 50,000IU weekly 2) Jose L 1 pk daily, MVI w/ mineral 1 tab, Vit C 500mg BID, Zinc sulfate 220mg daily x 10 days 3) Advance to [id number] + renal special 80gm protein diet 4) Continue current plan of care Expected Outcomes/Goals: Advance diet to meet at least 75% estimated needs FU 2-3 days CC Plasma Assessment Blood Product Administration S: 11:05 RITA SANDS MD Dec 23, 2024 11:02
[2024-12-23 12:30] LABS: Platelet Count (auto) 24 10^3/uL (140-450)
[2024-12-23 12:32] LABS: Anisocytosis Slight; Band Neutrophils % (manual) 20; Lymphocytes % (manual) 9 (10.0-50.0); Monocytes % (manual) 2 (0-12); Platelet Estimate Decreased
[2024-12-23 12:33] LABS: Ovalocytes FEW
[2024-12-23] MEDS: DAPTOmycin 500 MG in SODIUM CHL 0.9% 50 ML IV SCH (12:54)
--- NOTE | 2024-12-23 13:55 | DVHPN2 ---
Progress Note - Dictate Date Seen: Dec 23, 2024 Has the PT tested + for MRSA If YES, has PT been informed?: No Medical Necessity Reason Pt with a Central, PICC or Fol: Yes The following are medically ne: Pond Catheter Reason for pond catheter: Bladder Retention/Obstruc, Strict I&O Subjective *Plum Packer rounds* Patient seen and examined Overnight events reviewed vital signs Vital Sign Date Time Temp Pulse Resp B/P (MAP) Pulse Ox O2 Delivery O2 Flow Rate FiO2 12/23/24 13:50 96 12/23/24 13:49 8 98 Nasal Cannula* 3 32 12/23/24 13:45 100/64 (76) 12/23/24 12:00 99.6 99.6 Total Intake and Output 12/22/24 12/22/24 12/23/24 14:59 22:59 06:59 Intake Total 55.992 ml 453.179 ml 405.367 ml Output Total 20 ml 20 ml Balance 55.992 ml 433.179 ml 385.367 ml medications Current Medications Medications Dose Ordered Sig/Shavon Route Start Time Stop Time Status Last Admin Dose Admin Acetaminophen 650 mg Q6HP PRN PO 12/04/24 03:30 12/23/24 09:11 650 MG Ondansetron HCl 4 mg Q4HP PRN IV 12/04/24 03:30 12/22/24 03:16 4 MG Pantoprazole Sodium 40 mg BID IV 12/04/24 06:45 12/23/24 07:22 40 MG Calcium Acetate 1,334 mg TIDWMEALS PO 12/08/24 12:00 12/23/24 07:23 1,334 MG Gabapentin 200 mg HS PO 12/10/24 22:00 12/22/24 21:41 200 MG Multivit/Ca Carb/ B Cmplx/FA/Prenat 1 tab DAILY PO 12/12/24 10:00 12/23/24 07:23 1 TAB Enteral Nutritional Formula 27.5 gm DAILY PO 12/12/24 10:00 12/14/24 09:26 27.5 GM Ergocalciferol 50,000 unit Q7D PO 12/12/24 08:45 12/12/24 09:38 50,000 UNIT Enteral Nutritional Formula 240 ml BIDWM PO 12/13/24 08:00 12/17/24 08:21 240 ML Midodrine 15 mg TID@0600,1200,1800 PO 12/15/24 12:00 12/23/24 05:58 15 MG Sodium Chloride 10 ml QSHIFT@10,22 IV 12/16/24 22:00 12/23/24 07:22 10 ML Acetaminophen 325 mg Q6HP PRN [place] 12/17/24 06:45 Epoetin Tonio-epbx 10,000 unit 2XW SC 12/17/24 12:00 Norepinephrine Bitartrate 250 ml @ 0.938 mls/ hr Q24H IV 12/18/24 06:30 12/23/24 02:09 0.938 MLS/HR Octreotide Acetate 100 mcg TID SUBCUT 12/18/24 14:00 12/23/24 12:54 100 MCG Dopamine HCl/ Dextrose 250 ml @ 6.413 mls/ hr Q24H IV 12/18/24 09:45 12/23/24 02:08 6.413 MLS/HR Citalopram Hydrobromide 10 mg DAILY PO 12/20/24 10:00 12/22/24 08:01 10 MG Enteral Nutritional Formula 1,000 ml 30ML/HR GT 12/20/24 18:00 12/23/24 02:05 1,000 ML Diagnostic Test (Pha) 1 strip Q6HR 12/22/24 06:00 12/23/24 12:55 1 STRIP Insulin Human Regular Q6HR SC 12/22/24 06:00 12/22/24 16:19 2 UNITS Dextrose 50 ml UD PRN IV 12/22/24 06:30 Lactulose 30 ml BID PO 12/22/24 22:00 12/23/24 07:23 30 ML Meropenem 50 ml @ 17 mls/hr Q12HR IV 12/23/24 10:00 12/23/24 10:45 17 MLS/HR Daptomycin 500 mg/ Sodium Chloride 50 ml @ 100 mls/hr Q48H IV 12/23/24 15:00 12/23/24 12:54 100 MLS/HR laboratory and microbiology Laboratory Tests 12/23/24 10:08 12/23/24 04:57 Test 12/23/24 04:57 Range/Units Serum Glucose 73 #L 74-106 mg/dL Assessment/Plan Plum Packer rounds Impression Acute hypoxemic respiratory failure Altered mental status ESRD on HD Sepsis Patient seen and examined in LINDA Events Low oxygen requirements On 3 liters nasal cannula On pressors for hemodynamic support more obtunded jaundiced worse Labs and imaging reviewed Chest x-ray shows reduced lung volumes ? right lower lobe collapse Management Supplemental oxygen Titrate to maintain sats 90% or above Incentive spirometry Continue antibiotics F/u cultures Bronchodilators Monitor renal function HD as per nephrology Management deferred Monitor electrolytes Supplement as needed Pressors as needed for hemodynamic support To maintain a mean arterial pressure of 65 mmHg Patient at risk for endotracheal intubation Family at the bedside, Family adamant regarding full code status DVT prophylaxis Critical care time 35 minutes Dietary Evaluation Review Comments: 1) Ergocalciferol 50,000IU weekly 2) Jose L 1 pk daily, MVI w/ mineral 1 tab, Vit C 500mg BID, Zinc sulfate 220mg daily x 10 days 3) Advance to [id number] + renal special 80gm protein diet 4) Continue current plan of care Expected Outcomes/Goals: Advance diet to meet at least 75% estimated needs FU 2-3 days Plan discussed with: Other (rn) CC Plasma Assessment Blood Product Administration S: 11:05 JES ONEILL MD Dec 23, 2024 13:55
--- NOTE | 2024-12-23 14:11 | DVHPN2 ---
Assessment/Plan Assessment/Plan Progress note 59 M with a past medical history of coronary artery disease status post CABG in October 2024, ischemic stroke oct 2024, status post bed bound and chronic indwelling Pond, hypertension, and hyperlipidemia. He was brought to the ER by the family with a chief complaint of heavy breathing, fever, chills, and anuria for the past 3 days. Per the daughter at bedside, the patient had never followed up with urology or cardiology after he was discharged from this facility on 11/07/24. He usually makes 1600 cc of urine a day. Per daughter, patient has a wound in his back and is also draining a white pus-like substance. Patient also reported dysuria and abdominal discomfort. He also reports heavy breathing and mild nonproductive cough. On arrival, patient was febrile at 101.2F, tachycardic, blood pressure 144/77, and requiring 4 L oxygen supplementation. White cell count was 3.6, hemoglobin 8.8, and hematocrit 23. Patient had hyperkalemia, potassium was 6 which downtrended to 5.4. Creatinine was 2.9 and BUN 77. Patient's Pond catheter was removed in ED after being in place for more than a month, the patient does not urinate on his own, bladder scan showed empty bladder, nephrology was consulted. Chest x-ray shows bibasilar consolidation. The patient has mildly elevated transaminases. Cardiology consulted given CT fi ndings of substernal soft tissue density: new echo ordered, azithromycin was added to cover atypicals and hyperkalemia protocol was done, patient is having febrile neutropenia, CT scan of abdomen showed right groin lymphadenopathy, lymphadenopathy biopsy was done. 1 RBC was transfused per cardiology. 12/06/24 at 5:30 pm, patient had an episode of AMS, weakness, and hypotension, increased left leg weakness and left facial droop. CT scan negative for stroke or hemorrhage, patient was placed on Levophed and weaned off at 8 pm, fluids IV 100 cc during the night, today x-ray showed mild congestion. IV fluids reduced to 60cc and furosemide IV was started. New MRI showed multiple small strokes in different places; probably cardiembolic etiology. Neurology Dr. Cabral, stated no need for CTA or thrombectomy, also transfer to [facility] was planned but according to the center he had his CABG, [facility] can [facility]. Also, nephrology consulted. EMILY was ordered and will be done today. Worsening renal function; nephrology will discuss possible hemodialysis with the patient and his family. EMILY negative, neupogen started, patient had fever last night, new pancultures, renal function is trending high, dialysis catheter placed on the left, new K normal on place, possible HD. ID was consulted, vancomycin was changed for daptomycin, further studies were ordered to study possible source of infection, WBC is trending high, last fever 12/10 4pm, HD was done but patient needed levophed 2mcg, bilirubin is trending high, EPO was started by Nephro. lymph node biopsy: Hodgkin lymphoma, diagnosis disccused with family, patient still having fevers and diarrhea, necrotic ulcer debrided seen by me today during rounds, mental status unchanged. ghad discussion with family re goals of care. covering with abx, concern for acalculus rhona vs cholangitis. no candidate for ERCp or surgery. will attempt IR tomorrow. physical exam alert oriented x3 clear breath sounds JVD clavicles s1 s2 rrr no murmur abdomen soft nontender trace LE edema R IJ permacath labs ekg imaging reviewed assessment and plan acute metabolic / toxic encephalopathy, uremic vs hepatic vs septic multiple CVA with residual stroke recurdescence shock, multifactorial acute on chronic diastolic heart failure HFpEF CAD s/p CABG acute hypoxic RF PNA gp vs gn atelectasis b/l PLEF cirrhosis gallblader polyps hyperbilirubinemia new diagnosed hodgkin lymphoma normoctyic anemia febrile neutropenia thrombocytopenia GOPAL ATN on CKD now ESRD on HD hyperkalemia secondary hyperparathyroidism stage III decub ulcer s/p debridement cholangitis? c/w o2 supp maintain spo2 >92% c/w dapto, cefepime, mycafungin c/w levo maintain MAP >65 FISH TECHNOLOGIST per renal order GBUS hold telepsych for now mittens aspiration precaution delirium precaution low treshold for intubation decub ulcer precaution start TF no TPN high risk of fungemia GI consult lines R IJ permacath PICC line pond keep K4 Mg 2 diet TF dvt ppx lovenox gi ppx no indication critical care time spent 60 minutes Plan discussed with: Spouse My Orders Orders - RADHA ROWLEY MD Procedure Category Date Status Time Cleanse Wound With DUGLAS 12/22/24 In Process Wound Clean 15:31 * Radiologist Consult CONS 12/22/24 Transmitted 18:06 Carbohydrate Antigen LAB 12/23/24 In Process 19-9 Meropenem 500mg Ivpb PHA 12/23/24 In Process (Merrem 500mg/Ns) 10:00 Date of Service: Dec 23, 2024 Billing Provider: RADHA ROWLEY MD Common Visit Codes: 74845-[id number] CARE 30-74 MIN RADHA ROWLEY MD Dec 23, 2024 14:11
--- NOTE | 2024-12-23 21:18 | DVHPN2 ---
Progress Note - Dictate Date Seen: Dec 23, 2024 Has the PT tested + for MRSA If YES, has PT been informed?: No Medical Necessity Reason Pt with a Central, PICC or Fol: Yes The following are medically ne: Pond Catheter Reason for pond catheter: Bladder Retention/Obstruc, Strict I&O Subjective Patient continues to be altered and lethargic He has moderate generalized icterus Patient had a low-grade fever last night and this morning but currently is afebrile NG tube output is minimal and patient is tolerating tube feedings at 30 mL/hour Patient is having some loose stools with a flexi seen as he is on lactulose Leukocytosis is improving and lactic acid is improving Patient had persistent elevation in bilirubin and alkaline phosphatase Hepatitis panel and NOLBERTO are negative, serum ferritin is elevated vital signs Vital Sign Date Time Temp Pulse Resp B/P (MAP) Pulse Ox O2 Delivery O2 Flow Rate FiO2 12/23/24 20:00 98.1 93 9 82/49 (60) 100 98.1 12/23/24 20:00 Nasal Cannula* 3 32 Total Intake and Output 12/22/24 12/22/24 12/23/24 15:00 23:00 07:00 Intake Total 54.117 ml 455.054 ml 405.367 ml Output Total 20 ml 20 ml Balance 54.117 ml 435.054 ml 385.367 ml medications Current Medications Medications Dose Ordered Sig/Shavon Route Start Time Stop Time Status Last Admin Dose Admin Acetaminophen 650 mg Q6HP PRN PO 12/04/24 03:30 12/23/24 09:11 650 MG Ondansetron HCl 4 mg Q4HP PRN IV 12/04/24 03:30 12/22/24 03:16 4 MG Pantoprazole Sodium 40 mg BID IV 12/04/24 06:45 12/23/24 07:22 40 MG Calcium Acetate 1,334 mg TIDWMEALS PO 12/08/24 12:00 12/23/24 16:50 1,334 MG Gabapentin 200 mg HS PO 12/10/24 22:00 12/22/24 21:41 200 MG Multivit/Ca Carb/ B Cmplx/FA/Prenat 1 tab DAILY PO 12/12/24 10:00 12/23/24 07:23 1 TAB Enteral Nutritional Formula 27.5 gm DAILY PO 12/12/24 10:00 12/14/24 09:26 27.5 GM Ergocalciferol 50,000 unit Q7D PO 12/12/24 08:45 12/12/24 09:38 50,000 UNIT Enteral Nutritional Formula 240 ml BIDWM PO 12/13/24 08:00 12/17/24 08:21 240 ML Midodrine 15 mg TID@0600,1200,1800 PO 12/15/24 12:00 12/23/24 16:51 15 MG Sodium Chloride 10 ml QSHIFT@10,22 IV 12/16/24 22:00 12/23/24 07:22 10 ML Acetaminophen 325 mg Q6HP PRN [place] 12/17/24 06:45 Epoetin Tonio-epbx 10,000 unit 2XW SC 12/17/24 12:00 Norepinephrine Bitartrate 250 ml @ 0.938 mls/ hr Q24H IV 12/18/24 06:30 12/23/24 02:09 0.938 MLS/HR Octreotide Acetate 100 mcg TID SUBCUT 12/18/24 14:00 12/23/24 12:54 100 MCG Dopamine HCl/ Dextrose 250 ml @ 6.413 mls/ hr Q24H IV 12/18/24 09:45 12/23/24 02:08 6.413 MLS/HR Citalopram Hydrobromide 10 mg DAILY PO 12/20/24 10:00 12/22/24 08:01 10 MG Enteral Nutritional Formula 1,000 ml 30ML/HR GT 12/20/24 18:00 12/23/24 02:05 1,000 ML Diagnostic Test (Pha) 1 strip Q6HR 12/22/24 06:00 12/23/24 12:55 1 STRIP Insulin Human Regular Q6HR SC 12/22/24 06:00 12/22/24 16:19 2 UNITS Dextrose 50 ml UD PRN IV 12/22/24 06:30 Lactulose 30 ml BID PO 12/22/24 22:00 12/23/24 07:23 30 ML Meropenem 50 ml @ 17 mls/hr Q12HR IV 12/23/24 10:00 12/23/24 10:45 17 MLS/HR Daptomycin 500 mg/ Sodium Chloride 50 ml @ 100 mls/hr Q48H IV 12/23/24 15:00 12/23/24 12:54 100 MLS/HR laboratory and microbiology Laboratory Tests 12/23/24 10:08 12/23/24 04:57 Test 12/23/24 04:57 Range/Units Serum Glucose 73 #L 74-106 mg/dL Problems(with codes): (1) Non-STEMI (non-ST elevated myocardial infarction) (2) Acute on chronic diastolic heart failure (3) Anemia of chronic disease (4) Elevated liver enzymes (5) Lymphoma (6) Acalculous cholecystitis (7) Hyperbilirubinemia Prognosis Plan Continue supportive care Patient is on broad spectrum antibiotics Lactic acidosis and leukocytosis is improving Patient is tolerating tube feedings He is scheduled for possible IR consultation to discuss cholecystostomy as the patient is high-risk for surgery If Radiology is not available consider referral to higher level of care for ERCP continue to monitor labs; patient could also have hepatic involvement with the lymphoma and low-grade fevers may be be symptoms related to the lymphoma Patient has a very high serum ferritin over 3300 This could be an acute phase reactant due to his ongoing lymphoma and infectious process Hemosiderosis or hemochromatosis not ruled out at this time Dietary Evaluation Review Comments: 1) Ergocalciferol 50,000IU weekly 2) Jose L 1 pk daily, MVI w/ mineral 1 tab, Vit C 500mg BID, Zinc sulfate 220mg daily x 10 days 3) Advance to [id number] + renal special 80gm protein diet 4) Continue current plan of care Expected Outcomes/Goals: Advance diet to meet at least 75% estimated needs FU 2-3 days Plan discussed with: Spouse, Other (LINDA Nurse and Dr Salas) CC Plasma Assessment Blood Product Administration S: 11:05 LASHONDA DOYLE MD Dec 23, 2024 21:18
[2024-12-24] VITALS (64 sets, daily range): BP systolic 74–145; BP diastolic 37–79; PULSE 0–145; RESP 0–76; TEMP 97.4–98.9; O2SAT 64–100
[2024-12-24] MEDS ORDERED: SODIUM CHL 0.9% 1000 ML BAG XX ONE (07:00)
--- NOTE | 2024-12-24 09:54 | DVHPNRES ---
Progress Note Has the PT tested + for MRSA If YES, has PT been informed?: No Medical Necessity Reason Pt with a Central, PICC or Fol: Yes The following are medically ne: Pond Catheter Reason for pond catheter: Bladder Retention/Obstruc, Strict I&O Objective vital signs Vital Sign Date Time Temp Pulse Resp B/P (MAP) Pulse Ox O2 Delivery O2 Flow Rate FiO2 12/24/24 09:38 118 12/24/24 09:38 14 100 Nasal Cannula* 3 32 12/24/24 09:25 89/50 12/24/24 08:00 98.8 98.8 Total Intake and Output 12/23/24 12/23/24 12/24/24 15:00 23:00 07:00 Intake Total 220.056 ml 412.178 ml 403.288 ml Output Total 300 ml 100 ml Balance 220.056 ml 112.178 ml 303.288 ml medications Current Medications Medications Dose Ordered Sig/Hsavon Route Start Time Stop Time Status Last Admin Dose Admin Acetaminophen 650 mg Q6HP PRN PO 12/04/24 03:30 12/23/24 09:11 650 MG Ondansetron HCl 4 mg Q4HP PRN IV 12/04/24 03:30 12/22/24 03:16 4 MG Pantoprazole Sodium 40 mg BID IV 12/04/24 06:45 12/23/24 21:45 40 MG Calcium Acetate 1,334 mg TIDWMEALS PO 12/08/24 12:00 12/23/24 16:50 1,334 MG Gabapentin 200 mg HS PO 12/10/24 22:00 12/23/24 21:45 200 MG Multivit/Ca Carb/ B Cmplx/FA/Prenat 1 tab DAILY PO 12/12/24 10:00 12/23/24 07:23 1 TAB Enteral Nutritional Formula 27.5 gm DAILY PO 12/12/24 10:00 12/14/24 09:26 27.5 GM Ergocalciferol 50,000 unit Q7D PO 12/12/24 08:45 12/12/24 09:38 50,000 UNIT Enteral Nutritional Formula 240 ml BIDWM PO 12/13/24 08:00 12/17/24 08:21 240 ML Midodrine 15 mg TID@0600,1200,1800 PO 12/15/24 12:00 12/24/24 05:11 15 MG Sodium Chloride 10 ml QSHIFT@10,22 IV 12/16/24 22:00 12/23/24 21:48 10 ML Acetaminophen 325 mg Q6HP PRN [place] 12/17/24 06:45 Epoetin Tonio-epbx 10,000 unit 2XW SC 12/17/24 12:00 Norepinephrine Bitartrate 250 ml @ 0.938 mls/ hr Q24H IV 12/18/24 06:30 12/23/24 02:09 0.938 MLS/HR Octreotide Acetate 100 mcg TID SUBCUT 12/18/24 14:00 12/23/24 12:54 100 MCG Dopamine HCl/ Dextrose 250 ml @ 6.413 mls/ hr Q24H IV 12/18/24 09:45 12/23/24 02:08 6.413 MLS/HR Citalopram Hydrobromide 10 mg DAILY PO 12/20/24 10:00 12/22/24 08:01 10 MG Enteral Nutritional Formula 1,000 ml 30ML/HR GT 12/20/24 18:00 12/23/24 02:05 1,000 ML Diagnostic Test (Pha) 1 strip Q6HR 12/22/24 06:00 12/24/24 05:11 1 STRIP Insulin Human Regular Q6HR SC 12/22/24 06:00 12/22/24 16:19 2 UNITS Dextrose 50 ml UD PRN IV 12/22/24 06:30 Lactulose 30 ml BID PO 12/22/24 22:00 12/23/24 21:45 30 ML Meropenem 50 ml @ 17 mls/hr Q12HR IV 12/23/24 10:00 12/23/24 21:45 17 MLS/HR Daptomycin 500 mg/ Sodium Chloride 50 ml @ 100 mls/hr Q48H IV 12/23/24 15:00 12/23/24 12:54 100 MLS/HR laboratory and microbiology Laboratory Tests 12/23/24 10:08 12/23/24 04:57 Test 12/23/24 04:57 Range/Units Serum Glucose 73 #L 74-106 mg/dL Microbiology Date/Time Source Procedure Growth Status 12/22/24 14:12 Blood Blood Culture - Preliminary NO GROWTH AFTER 24 HOURS OF INCUBATION. Resulted 12/20/24 12:54 Back Gram Stain - Final Resulted 12/20/24 12:54 Back Anaerobic Culture - Preliminary Resulted 12/20/24 12:54 Back Aerobic Culture - Preliminary Resulted 12/12/24 13:20 Stool Stool Culture - Final Complete 12/12/24 13:20 Stool Shiga Toxin I & II - Final Complete 12/11/24 15:31 Sputum Gram Stain - Final Complete 12/11/24 15:31 Sputum Respiratory Culture - Final Complete 12/10/24 10:17 Voided Urine Urine Culture - Final Complete Problem List/Assessment/Plan Problem List/Assessment/Plan Hematology #Hodgkin Lymphoma #Pancitopenia resolved #neutropenia resolved #Retroperitoneal lymphadenopathy #Normochromic and normocytic Anemia multifactorial: rule out neoplasm, CKD #Thrombocytopenia Lymph node biopsy done: Hodgkin Lymphoma Check hepatitis panel NOLBERTO double-stranded DNA CMV Christine-Deshpande virus, protein electrophoresis: Igg for CMV and EBV positive 2RBC given FOB negative Coconut Boiler on board MAURICE Neupogen Dr Pastor stated that the patient will need chemotherapy when he is stable as outpatient Patient still having fevers BM aspiration: myeloid dysmaturation without overt increase in blasts, monocytes 32% Neurology #Acute metabolic/hypoxic encephalopathy due to stroke and sepsis #Possible acute cardioembolic stroke: corpus callosum, bilateral frontal and right parietal #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 There is no evidence of acute hemorrhage. There is no mass effect. There are additional scattered punctate foci of restricted diffusion in the bilateral frontal and right parietal lobe deep white matter which may represent tiny foci of acute to subacute infarcts. Bran MRI oct 2024: There prominent diffusion restriction also seen within the genu and anterior body of the corpus callosum. There is an apparent punctate additional focus of diffusion restriction in the medulla Neurology on board Aspirin continue Continue atorvastatin 40 mg EMILY normal Carotid duplex: No hemodynamically significant stenosis within the carotid arteries Pregabalin trial per neuro Need of PT apathy, continue citalopram, pending telepsych consult Cardiology #Severe coronary artery disease status post triple-vessel CABG #Substernal soft tissue density likely secondary to recent CABG #Possible acute on Chronic HFpEF, NYHA class III Cardiology signed off 12/05/24 ECHO: Left atrial enlargement with dilation of the sinuses of Valsalva. Mild RV enlargement. Moderate aortic sclerosis with diminished excursion of the leaflets and calcification of what appears to be the right and non coronary cusps. Left ventricular function appears preserved. EF of about 50% with normal RV function. The tricuspid is normal. Doppler reveals some mild to moderate TR. No pericardial effusion masses or vegetations. 12/04/24: Substernal soft tissue density and stranding without a large fluid collection. Fat stranding is nonspecific and should be correlated with timing of surgery. Alternatively this could reflect an infectious or inflammatory etiology. Small bilateral pleural effusions and passive atelectasis. Cardiomegaly. 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 Trace ascites. Partially visualized trace right pleural effusion. Gallbladder polyps measuring up to 0.4 cm FOB negative MRCP negative for acute pathology GGT high, AP high, bilirubins are trending high NG tube placed please start enteral feedings Renal #GOPAL due to septic shock #ESRD #Dialysis urgency #Severe fluid overload #Hyperkalemia secondary to CKD #Hyperparathyroidism #Mixed base disorder: respiratory alkalosis and metabolic acidosis #Chronic indwelling Pond Urine culture came negative Psych Tech on board EPO, dopamine drip and octeotride per nephro Infectious #Febrile neutropenia #Septic shock due to possible pneumonia? #Possible septic emboli? #sacral wound #Rule out opportunistic infections #Possible tiflitis #s/p debridement of sacral wound EMILY neg Daptomycin + Cefepime + Micafungin Patient had a sacral wound, cultures ordered: prelim yeast and gram + Multiple studies ordered to rule out opportunistic infection on severe immunocompromised patient Debridement today without complications Endocrinology #Hypoglycemia #Prediabetes Diabetic diet Stop insulin Cortisol AM: normal 12/19/24: patient still having fevers, the sacral wound looks more necrotic than before, Dr Jacinto will take the patient to [facility] tomorrow am, off levophed, still on dopamine drip, today dialysis, patient is depressed, telepsych consult, start citalopram Case discussed with Dr Salas Dietary Evaluation Review Comments: 1) Ergocalciferol 50,000IU weekly 2) Jose L 1 pk daily, MVI w/ mineral 1 tab, Vit C 500mg BID, Zinc sulfate 220mg daily x 10 days 3) Advance to [id number] + renal special 80gm protein diet 4) Continue current plan of care Expected Outcomes/Goals: Advance diet to meet at least 75% estimated needs FU 2-3 days CC Plasma Assessment Blood Product Administration S: 11:05 KAMILLE VÁSQUEZ RESIDENT Dec 24, 2024 09:54
--- NOTE | 2024-12-24 09:55 | DVHPN2 ---
Progress Note - Dictate Date Seen: Dec 24, 2024 Has the PT tested + for MRSA If YES, has PT been informed?: No Medical Necessity Reason Pt with a Central, PICC or Fol: Yes The following are medically ne: Pond Catheter Reason for pond catheter: Bladder Retention/Obstruc, Strict I&O Subjective Mr. Narciso White is a 59 years old right-handed gentleman with a history of hypertension, diabetes, dyslipidemia, coronary artery disease, heart attack, recent CABG, he was taken to the [facility] on 12/03/2024 with a chief company of fever. But he was also developed acute stroke syndrome I have seen and examined the patient, discussed with his nurse, is in the room with him. RN: Agonal respiration noticed He was eyes closed, with intermittent fast blinking in both eyes, I think he is respond to my voice sometimes, eyes rolling, but mostly on the right side. He does not not follow verbal commands or move his extremities UDS, 12/04/2024: Negative Urinalysis, 12/04/2024: WBC: 1, urine leukocyte esterase: Negative Blood culture, 11/2624: No growth, 12/1224: Sacral wound culture, 12/10/2024: Enterococcus facility as, presumptive Halima albicans WBC/HB/PLT/MCV, 12/06/2024: 0.6/7.8/147/84.5 12/07/2024: 0.8/8.2/141/84.2, 12/17/2024: 16.3/8.4/67/82.3 PTT/INR/PTT, 12/05/2024: 12.4/1.19/37.2, 12/20/2024: 17.8/1. BUN/CR, 12/06/2024: 82/3.64, 12/12/2024: 48/3.67, 12/18/2024: 62/4.21, 12/21/2024: 84/9.15 HGB A1c, 12/04/2024: 5.9 Lactic acid, 12/03/2024: 1.4, 12/05/2024: 2.8, 12/07/24: 0.9, 12/23/2024: 2.1, 1.4 TBI/AST/ALT/AP, 12/06/2024: 1.5/68/37/454, 12/10/2024: 3.5/88/36/616 12/12/2024: 5/76/29/825, both 05/06: 11.1/82/35/184, 12/21/24: 16.7/64/29/651 TG/HDL/LDL/HDL, 12/06/2024: 138/79/20/11, 12/07/2024: 141/77/20/9 Vitamin B12, 11/2024: 1395 TSH, 11/2024: 0.7 SIFE, 12/06/2024: Iron/TIBC/Sat, 12/10/2024: 34/123/27.5 Ferritin, 12/10/2024: >3300 Carotid Doppler, 12/07/2024: No hemodynamically significant stenosis within the carotid arteries Echocardiogram, 12/05/2024: Sinus rhythm. Left atrial enlargement with dilation of the sinuses of Valsalva. Mild RV enlargement. Moderate aortic sclerosis with diminished excursion of the leaflets and calcification of what appears to be the right and non coronary cusps. From the short axis view there does not appear to be limitation in motion. Normal pulmonic valve. Left ventricular function appears preserved. EF of about 50% with normal RV function. The tricuspid is normal. Doppler reveals some mild to moderate TR. No pericardial effusion masses or vegetations EMILY, 12/07/2024: Normal chamber dimensions. Valves appear to be structurally normal. Normal aortic mitral tricuspid and pulmonic valves Left ventricular function was preserved at 60% with normal RV function. Doppler reveals mild tricuspid insufficiency. Mild mitral insufficiency. No pericardial effusion masses or vegetations noted. The atrial appendage is normal. There are no thrombi present. Bubble study did not reveal crossover into the left side. Abnormal shunting otherwise present. MRI brain, 12/06/2024: 1. There is a small area of restricted diffusion involving the anterior body / genu of the corpus callosum consistent with an acute to subacute infarct. There is no evidence of acute hemorrhage. There is no mass effect. 2. There are additional scattered punctate foci of restricted diffusion in the bilateral frontal and right parietal lobe deep white matter which may represent tiny foci of acute to subacute infarcts Lymph node biopsy, 12/06/24: Hodgkin's lymphoma MRI brain, 12/18/2024: Limited views of the brain are provided with limited evaluation of the provided views due to motion artifact. Subacute appearing infarct of the genu/anterior body of the corpus callosum. The additional scattered punctate foci of diffusion restriction within the bilateral frontal and parietal lobes noted on prior imaging appear significantly less conspicuous on current study. No new areas of diffusion restriction are noted within the limitations of motion artifact. Bone marrow aspiration: myeloid dysmaturation without overt increase in blasts, monocytes 32% vital signs Vital Sign Date Time Temp Pulse Resp B/P (MAP) Pulse Ox O2 Delivery O2 Flow Rate FiO2 12/24/24 09:38 118 12/24/24 09:38 14 100 Nasal Cannula* 3 32 12/24/24 09:25 89/50 12/24/24 08:00 98.8 98.8 Total Intake and Output 12/23/24 12/23/24 12/24/24 15:00 23:00 07:00 Intake Total 220.056 ml 412.178 ml 403.288 ml Output Total 300 ml 100 ml Balance 220.056 ml 112.178 ml 303.288 ml medications Current Medications Medications Dose Ordered Sig/Shavon Route Start Time Stop Time Status Last Admin Dose Admin Acetaminophen 650 mg Q6HP PRN PO 12/04/24 03:30 12/23/24 09:11 650 MG Ondansetron HCl 4 mg Q4HP PRN IV 12/04/24 03:30 12/22/24 03:16 4 MG Pantoprazole Sodium 40 mg BID IV 12/04/24 06:45 12/23/24 21:45 40 MG Calcium Acetate 1,334 mg TIDWMEALS PO 12/08/24 12:00 12/23/24 16:50 1,334 MG Gabapentin 200 mg HS PO 12/10/24 22:00 12/23/24 21:45 200 MG Multivit/Ca Carb/ B Cmplx/FA/Prenat 1 tab DAILY PO 12/12/24 10:00 12/23/24 07:23 1 TAB Enteral Nutritional Formula 27.5 gm DAILY PO 12/12/24 10:00 12/14/24 09:26 27.5 GM Ergocalciferol 50,000 unit Q7D PO 12/12/24 08:45 12/12/24 09:38 50,000 UNIT Enteral Nutritional Formula 240 ml BIDWM PO 12/13/24 08:00 12/17/24 08:21 240 ML Midodrine 15 mg TID@0600,1200,1800 PO 12/15/24 12:00 12/24/24 05:11 15 MG Sodium Chloride 10 ml QSHIFT@10,22 IV 12/16/24 22:00 12/23/24 21:48 10 ML Acetaminophen 325 mg Q6HP PRN FL 12/17/24 06:45 Epoetin Tonio-epbx 10,000 unit 2XW SC 12/17/24 12:00 Norepinephrine Bitartrate 250 ml @ 0.938 mls/ hr Q24H IV 12/18/24 06:30 12/23/24 02:09 0.938 MLS/HR Octreotide Acetate 100 mcg TID SUBCUT 12/18/24 14:00 12/23/24 12:54 100 MCG Dopamine HCl/ Dextrose 250 ml @ 6.413 mls/ hr Q24H IV 12/18/24 09:45 12/23/24 02:08 6.413 MLS/HR Citalopram Hydrobromide 10 mg DAILY PO 12/20/24 10:00 12/22/24 08:01 10 MG Enteral Nutritional Formula 1,000 ml 30ML/HR GT 12/20/24 18:00 12/23/24 02:05 1,000 ML Diagnostic Test (Pha) 1 strip Q6HR 12/22/24 06:00 12/24/24 05:11 1 STRIP Insulin Human Regular Q6HR SC 12/22/24 06:00 12/22/24 16:19 2 UNITS Dextrose 50 ml UD PRN IV 12/22/24 06:30 Lactulose 30 ml BID PO 12/22/24 22:00 12/23/24 21:45 30 ML Meropenem 50 ml @ 17 mls/hr Q12HR IV 12/23/24 10:00 12/23/24 21:45 17 MLS/HR Daptomycin 500 mg/ Sodium Chloride 50 ml @ 100 mls/hr Q48H IV 12/23/24 15:00 12/23/24 12:54 100 MLS/HR objective General: the patient is well developed and nourished. No acute distress. Jaundice MENTAL STATUS: Subjective SPEECH, LANGUAGE, HIGHER CORTICAL FUNCTION: no aphasia or dysathria. CRANIAL NERVES: Pupils are equal, round and reactive. EOMs full and conjugate. No nystagmus. Facial sensation intact in all three divisions bilaterally. Mandibular strength intact. Facial muscles symmetrical and strength intact. SENSATION: Sensation to touch and pinprick is diminished distally in the lower extremities, but no [id number] differences MOTOR: Normal tone in the upper and lower extremity. Normal muscle bulk. No fasciculations. No abnormal movements or posturing. Subjective REFLEXES: Deep tendon reflexes are symmetrical. No pathological reflexes. CEREBELLAR/COORDINATION: No ataxia in the upper extremities GAIT/STATION: deferred. laboratory and microbiology Laboratory Tests 12/23/24 10:08 12/23/24 04:57 Test 12/23/24 04:57 Range/Units Serum Glucose 73 #L 74-106 mg/dL Problem List Altered mental status, general weakness Metabolic encephalopathy Recent acute stroke with left-sided weakness Acute stroke syndrome MRI evident multiple acute strokes (11/08/2024) Pancytopenia/rule out malignancy Anemia Fever/sepsis Septic shock Coronary artery disease with recent CABG Diabetic polyneuropathy Restless leg syndrome Anemia Elevated liver function tests Hodgkin's lymphoma Jaundice Depression Assessment/Plan Monitoring Supportive treatment Psychiatry evaluation Follow-up CT head ICU care IV antibiotics Gabapentin 200 mg in the evening Physical therapist GI prophylaxis Up to chair He is aware of neuropathy related foot care More recommendation per clinical course This medical document was created using an electronic medical record system with [employer] dictation system. Although this document has been carefully reviewed, there may still be some phonetic and typographical errors. These areas are purely typographical due to imperfections of the software programs, and do not reflect any compromise in the patient's medical care. Prognosis poor Dietary Evaluation Review Comments: 1) Ergocalciferol 50,000IU weekly 2) Jose L 1 pk daily, MVI w/ mineral 1 tab, Vit C 500mg BID, Zinc sulfate 220mg daily x 10 days 3) Advance to [id number] + renal special 80gm protein diet 4) Continue current plan of care Expected Outcomes/Goals: Advance diet to meet at least 75% estimated needs FU 2-3 days Plan discussed with: Spouse, Other CC Plasma Assessment Blood Product Administration S: 11:05 NIKOLAS PRATT MD Dec 24, 2024 09:55
[2024-12-24] MEDS: ETOMIDATE (2MG/ML) 20ML VIAL IV ONE ×2 (10:54→12:35)
[2024-12-24] MEDS: ROCURONIUM 10MG/ML 10ML VIAL IV ONE ×2 (10:54→12:34)
[2024-12-24] MEDS: fentaNYL Drip 2500mCg/250mlNS 250 ML IV SCH (11:00)
[2024-12-24] MEDS: fentaNYL Drip 2500mCg/250mlNS 250 ML IV ONE (11:01)
[2024-12-24] MEDS: VASOPRESSIN 20 UNIT/ML ONE (11:41)
[2024-12-24] MEDS: AMIODARONE 360mg/200mL PREMIX 200 ML IV ONE ×2 (11:57→12:37)
[2024-12-24] MEDS ORDERED: MEROPENEM 1GM IVPB 50 ML IV ONE (12:00)
[2024-12-24] MEDS ORDERED: VANCOMYCIN PER PHARMACY 0 MG IV SCH (12:00)
[2024-12-24 12:05] LABS: White Blood Cell 6.4 10^3/uL (4.4-10.8)
[2024-12-24 12:06] LABS: Hematocrit 20.6 % (41.0-53.0); Mean Corpuscular Hemoglobin 27.2 pg (28.0-32.0); Mean Corpuscular Hgb Conc. 31.1 g/dL (32.0-36.0); Mean Corpuscular Volume 87.4 fL (80.0-100.0); Red Blood Cells 2.36 10^6/uL (4.5-5.90); Red Cell Distribution Width 19.9 % (11.8-14.3)
[2024-12-24 12:18] LABS: Alanine Aminotransferase 38 U/L (7-40); Anion Gap 26 (5-15); Sodium 144 mmol/L (136-145)
--- NOTE | 2024-12-24 12:23 | DVH ---
EXAM: XY CHEST XRAY 1 VIEW HISTORY: S/P CPR COMPARISON: XY CHEST PORTABLE on DOS: 12/21/24, XY CHEST PORTABLE on DOS: 12/20/24, XY CHEST PORTABLE o n DOS: 12/20/24, XY CHEST XRAY 1 VIEW on DOS: 12/12/24, XY CHEST XRAY 1 VIEW on DOS: 11/02/24 TECHNIQUE: Portable AP view of the chest was performed. FINDINGS: Endotracheal tube is re-identified with its tip 5.5 cm above the damaso. A tube is identified to the left of the endotracheal tube, possibly representing an OG tube with its tip at the thoracic inlet. L eft upper extremity PICC line, right chest tunneled dialysis catheter, and sternal wires are re-ident ified. There is improved aeration of the right lung, with decreased elevation of the right hemidiaphr agm compared with the previous chest x-ray. There is central interstitial prominence. There is blunti ng of the left costophrenic angle. No pneumothorax. The heart is enlarged. IMPRESSION: 1. Mechanical ventilation with tubes and lines as above. Please reassess position of possible OG tube , as the tip of the OG tube may be located at the level of the clavicular heads. 2. Central interstitial prominence may be due to reactive airways disease and/or mild CHF. There is improved aeration of the right lung with less elevation of the right hemidiaphragm compared with ches t x-ray performed 3 days earlier. 3. Probable small left pleural effusion. 4. Cardiomegaly and postoperative changes of the heart.
[2024-12-24 12:29] LABS: Hemoglobin 6.4 g/dL (13.5-17.5); INR 4.49 (0.9-1.15); Platelet Count (auto) 14 10^3/uL (140-450)
[2024-12-24 12:30] LABS: Basophils % (manual) 0 (0.0-2.0); Blast Cells 0; Eosinophils % (manual) 0 (0-7); Metamyelocytes % 0; Myelocytes % 0; Promyelocytes % 0; Reactive Lymphocytes 0
[2024-12-24] MEDS: HYDROCORTISONE SOD SUCC 100 MG/2ML INJ VIAL IV ONE (12:33)
[2024-12-24 12:36] LABS: Albumin 1.7 g/dL (3.2-4.8); Alkaline Phosphatase 470 U/L (46-116); Aspartate Aminotransferase 205 U/L (13-40); Bilirubin, Total 13.2 mg/dL (0.2-1.0); Calcium 8.2 mg/dL (8.7-10.4); Carbon Dioxide 11 mmol/L (20-31); Chloride 107 mmol/L (98-107); Glucose 68 mg/dL (74-106); Potassium 5.4 mmol/L (3.5-5.1)
[2024-12-24 12:37] LABS: Total Protein 3.8 g/dL (5.7-8.2)
[2024-12-24] MEDS: VASOPRESSIN 20 UNITS in SODIUM CHL 0.9% 99 ML IV SCH (12:37)
[2024-12-24 12:38] LABS: BUN/Creatinine Ratio 20.3 (10.0-20.0); Blood Urea Nitrogen 87 mg/dL (9-23)
[2024-12-24 12:45] LABS: Band Neutrophils % (manual) 6; Lymphocytes % (manual) 26 (10.0-50.0); Monocytes % (manual) 3 (0-12); Platelet Estimate Markedly Decreased
[2024-12-24 12:47] LABS: Anisocytosis Slight
[2024-12-24] MEDS ORDERED: InsuLIN REG 1unit/0.01ml Soln (100units/ml) IV ONE (13:15)
[2024-12-24] MEDS ORDERED: CALCIUM GLUC 1,000mg/50ml-NS 50 ML IV ONE (13:15)
[2024-12-24] MEDS ORDERED: SODIUM BICARB 8.4% 50Meq/50ml SYR Vial IV ONE (13:15)
[2024-12-24] MEDS ORDERED: DEXTROSE (50%) 50ML SYRG IV ONE (13:15)
[2024-12-24] MEDS: SODIUM BICARB 8.4% 50Meq/50ml SYR Vial IV ONE (13:25)
[2024-12-24] MEDS: EPINEPHrine HCL 250 ML IV SCH (13:26)
[2024-12-24] MEDS: MEROPENEM 500MG IVPB 50 ML IV SCH (13:42)
--- NOTE | 2024-12-24 13:45 | DVHPN2 ---
Progress Note Date Seen: Dec 24, 2024 Has the PT tested + for MRSA If YES, has PT been informed?: No Medical Necessity Reason Pt with a Central, PICC or Fol: Yes The following are medically ne: Pond Catheter Reason for pond catheter: Bladder Retention/Obstruc, Strict I&O Objective vital signs Vital Sign Date Time Temp Pulse Resp B/P (MAP) Pulse Ox O2 Delivery O2 Flow Rate FiO2 12/24/24 12:37 95/62 12/24/24 12:20 14 100 Nasal Cannula* 3 32 12/24/24 12:20 120 12/24/24 08:00 98.8 98.8 Total Intake and Output 12/23/24 12/23/24 12/24/24 15:00 23:00 07:00 Intake Total 220.056 ml 412.178 ml 403.288 ml Output Total 300 ml 100 ml Balance 220.056 ml 112.178 ml 303.288 ml medications Current Medications Medications Dose Ordered Sig/Shavon Route Start Time Stop Time Status Last Admin Dose Admin Acetaminophen 650 mg Q6HP PRN PO 12/04/24 03:30 12/23/24 09:11 650 MG Ondansetron HCl 4 mg Q4HP PRN IV 12/04/24 03:30 12/22/24 03:16 4 MG Pantoprazole Sodium 40 mg BID IV 12/04/24 06:45 12/24/24 10:07 40 MG Calcium Acetate 1,334 mg TIDWMEALS PO 12/08/24 12:00 12/24/24 10:08 1,334 MG Multivit/Ca Carb/ B Cmplx/FA/Prenat 1 tab DAILY PO 12/12/24 10:00 12/24/24 10:08 1 TAB Ergocalciferol 50,000 unit Q7D PO 12/12/24 08:45 12/12/24 09:38 50,000 UNIT Enteral Nutritional Formula 240 ml BIDWM PO 12/13/24 08:00 12/17/24 08:21 240 ML Sodium Chloride 10 ml QSHIFT@10,22 IV 12/16/24 22:00 12/24/24 10:07 10 ML Acetaminophen 325 mg Q6HP PRN VT 12/17/24 06:45 Epoetin Tonio-epbx 10,000 unit 2XW SC 12/17/24 12:00 Norepinephrine Bitartrate 250 ml @ 0.938 mls/ hr Q24H IV 12/18/24 06:30 12/23/24 02:09 0.938 MLS/HR Octreotide Acetate 100 mcg TID SUBCUT 12/18/24 14:00 12/23/24 12:54 100 MCG Citalopram Hydrobromide 10 mg DAILY PO 12/20/24 10:00 12/24/24 10:08 10 MG Enteral Nutritional Formula 1,000 ml 30ML/HR GT 12/20/24 18:00 12/23/24 02:05 1,000 ML Diagnostic Test (Pha) 1 strip Q6HR 12/22/24 06:00 12/24/24 05:11 1 STRIP Insulin Human Regular Q6HR SC 12/22/24 06:00 12/22/24 16:19 2 UNITS Dextrose 50 ml UD PRN IV 12/22/24 06:30 Fentanyl Citrate 250 ml @ 2.5 mls/hr Q24H IV 12/24/24 11:00 Vasopressin 20 units/Sodium Chloride 100 ml @ 9 mls/hr Q11H7M IV 12/24/24 12:00 12/24/24 12:37 9 MLS/HR Vancomycin HCl 0 ml @ 0 mls/hr UD IV 12/24/24 12:00 Epinephrine HCl 250 ml @ 7.5 mls/hr Q24H IV 12/24/24 12:15 Voriconazole 400 mg/Dextrose 290 ml @ 145 mls/hr Q12H IV 12/24/24 15:00 12/25/24 04:59 Voriconazole 300 mg/Dextrose 280 ml @ 140 mls/hr Q12H IV 12/25/24 15:00 Meropenem 50 ml @ 17 mls/hr Q12HR IV 12/24/24 22:00 laboratory and microbiology Laboratory Tests 12/24/24 11:50 Test 12/24/24 11:50 Range/Units Serum Glucose 68 L 74-106 mg/dL Microbiology Date/Time Source Procedure Growth Status 12/22/24 14:12 Blood Blood Culture - Preliminary NO GROWTH AFTER 24 HOURS OF INCUBATION. Resulted 12/20/24 12:54 Back Gram Stain - Final Resulted 12/20/24 12:54 Back Anaerobic Culture - Preliminary Resulted 12/20/24 12:54 Back Aerobic Culture - Preliminary Resulted 12/12/24 13:20 Stool Stool Culture - Final Complete 12/12/24 13:20 Stool Shiga Toxin I & II - Final Complete 12/11/24 15:31 Sputum Gram Stain - Final Complete 12/11/24 15:31 Sputum Respiratory Culture - Final Complete 12/10/24 10:17 Voided Urine Urine Culture - Final Complete Problem List/Assessment/Plan Problem List/Assessment/Plan Acute kidney injury due ATN requiring HD Chronic kidney disease stage IIIB 09/2024 GFR 44% anemia status post PRBC septic shock Chronic urinary retention Pond catheter was removed by ER on this admission -> replaced Hyperkalemia 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 Family opted not to do dialysis. medical treatment for elevated K ordered and sodium bicarb per primary team PRBC ordered per nurse now DNR prognosis is grim as he is unstable; hospice candidate Plan discussed with: Spouse My Orders My Orders Orders - PRABUH ERNANDEZ MD Procedure Category Date Status Time Calcium Gluc PHA 12/24/24 In Process 1,000mg/50ml-Ns 13:15 Dietary Evaluation Review Comments: 1) Ergocalciferol 50,000IU weekly 2) Jose L 1 pk daily, MVI w/ mineral 1 tab, Vit C 500mg BID, Zinc sulfate 220mg daily x 10 days 3) Advance to [id number] + renal special 80gm protein diet 4) Continue current plan of care Expected Outcomes/Goals: Advance diet to meet at least 75% estimated needs FU 2-3 days Critical Care Time (mins): 40 CC Plasma Assessment Blood Product Administration S: 11:05 PRABHU ERNANDEZ MD Dec 24, 2024 13:45
[2024-12-24] MEDS ORDERED: VANCOMYCIN 1.25GM/250ML 250 ML IV ONE (14:00)
[2024-12-24] MEDS ORDERED: PHENYLEPHRINE IV 250 ML IV SCH (14:00)
[2024-12-24] MEDS ORDERED: MEROPENEM 1GM IVPB 50 ML IV SCH (14:00)
--- NOTE | 2024-12-24 14:30 | DVHDS2 ---
Summary Date of Admission Dec 04, 2024 at 03:23 Date and Time of Expiration: Dec 24, 2024 14:19 Reason for Admission: #Septic shock due to possible pneumonia #Acute respiratory failure Wounds: necrotic sacral wound Labs/Diagnostic Data: Laboratory Results Test 12/24/24 11:50 12/23/24 10:08 12/23/24 04:57 12/22/24 04:15 White Blood Count 6.4 10^3/uL (4.4-10.8) Red Blood Count 2.36 10^6/uL (4.5-5.90) Hemoglobin 6.4 g/dL (13.5-17.5) Hematocrit 20.6 % (41.0-53.0) Mean Corpuscular Volume 87.4 fL (80.0-100.0) Mean Corpuscular Hemoglobin 27.2 pg (28.0-32.0) Mean Corpuscular Hemoglobin Concent 31.1 g/dL (32.0-36.0) Red Cell Distribution Width 19.9 % (11.8-14.3) Platelet Count 14 10^3/uL (140-450) Mean Platelet Volume 5.9 fL (6.9-10.8) Neutrophils (%) (Auto) % (37.0-80.0) Lymphocytes (%) (Auto) % (10.0-50.0) Monocytes (%) (Auto) % (0.0-12.0) Basophils (%) (Auto) % (0.0-2.0) Neutrophils # (Auto) 10 ^3/uL (1.6-8.6) Lymphocytes # (Auto) 10 ^3/uL (0.4-5.4) Monocytes # (Auto) 10 ^3/uL (0-1.3) Differential Total Cells Counted 100.0 (100) Neutrophils % (Manual) 65 (37.0-80.0) Band Neutrophils % (Manual) 6 Lymphocytes % (Manual) 26 (10.0-50.0) Monocytes % (Manual) 3 (0-12) Eosinophils % (Manual) 0 (0-7) Basophils % (Manual) 0 (0.0-2.0) Metamyelocytes % (manual) 0 Myelocytes % (Manual) 0 Promyelocytes % (Manual) 0 Blast Cells % (Manual) 0 Reactive Lymphocytes 0 Platelet Estimate Markedly decreased Anisocytosis (manual) Slight [place] Cells Moderate Schistocytes Moderate Prothrombin Time 41.0 sec (9.3-11.8) Prothrombin Time INR 4.49 (0.9-1.15) Sodium Level 144 mmol/L (136-145) Potassium Level 5.4 mmol/L (3.5-5.1) Chloride Level 107 mmol/L (98-107) Carbon Dioxide Level 11 mmol/L (20-31) Anion Gap 26 (5-15) Blood Urea Nitrogen 87 mg/dL (9-23) Creatinine 4.28 mg/dL (0.700-1.30) Glomerular Filtration Rate Calc 15 mL/min (>90) BUN/Creatinine Ratio 20.3 (10.0-20.0) Serum Glucose 68 mg/dL (74-106) Calcium Level 8.2 mg/dL (8.7-10.4) Total Bilirubin 13.2 mg/dL (0.2-1.0) Aspartate Amino Transferase (AST) 205 U/L (13-40) Alanine Aminotransferase (ALT) 38 U/L (7-40) Alkaline Phosphatase 470 U/L (46-116) Total Protein 3.8 g/dL (5.7-8.2) Albumin 1.7 g/dL (3.2-4.8) Ovalocytes Few Lactic Acid Level 1.4 mmol/L (0.4-2.0) Phosphorus Level 5.9 mg/dL (2.4-5.1) Magnesium Level 2.3 mg/dL (1.6-2.6) Ammonia 38 umol/L (11-32) Smudge Cells 4 /100 WBC Test 12/20/24 04:56 12/19/24 08:38 12/18/24 04:58 12/17/24 12:00 Large Platelets Few Giant Platelets Few Target Cells Few Stomatocytes Few Activated Partial Thromboplast Time 56.9 SEC (24.5-34.5) Cortisol AM Sample 45.02 ug/dL (5.27-22.45) Eosinophils (%) (Auto) 0.0 % (0.0-7.0) Eosinophils # (Auto) 0 10 ^3/uL (0-0.8) Basophils # (Auto) 0 10 ^3/uL (0-0.2) Nucleated Red Blood Cells 0.0 % Urine Creatinine 38.35 mg/dL (30.0-125.0) Urine Sodium 86 mmol/L (40-220) Test 12/17/24 05:11 12/14/24 06:36 12/13/24 04:29 12/12/24 14:12 Tear Drop Cells Few Poikilocytosis (manual) Slight Direct Bilirubin 4.8 mg/dL (<0.3) Free [place] Light Chains, Quant 137.6 mg/L (3.3-19.4) Free [place]/Lambda Light Chain Ratio 0.84 (0.26-1.65) Test 12/12/24 13:20 12/12/24 12:00 12/11/24 19:55 12/11/24 11:21 Stool Occult Blood Negative (Negative) Stool Occult Blood Sample #3 (Negative) Stool for White Cells Moderate Miscellaneous Referred Test (Refrg) Sent to [facility] Haptoglobin 221 mg/dL (29-370) POC Glucose 93 mg/dl (70-106) Test 12/11/24 04:57 12/10/24 21:48 12/10/24 05:00 12/08/24 18:30 Random Vancomycin Level 15.6 ug/mL (5-10) Gamma Glutamyl Transpeptidase 400 U/L (<73) Creatine Kinase 56 U/L (46-171) Blastomyces Ab Immunodiffusion Negative (Neg:<1:1) Coccidioides Antibody (Comp Fix) <1:2 (<1:2) HIV (1&2) Antibody Negative (Negative) Aspergillus flavus Antibody Negative (Neg:<1:1) Aspergillus fumigatus Antibody Negative (Neg:<1:1) Aspergillus niger Antibody Negative (Neg:<1:1) TB Test (QFT) Gold Plus Indeterminate (Negative) TB Test (QFT) Nil >10.00 IU/mL (.) TB Test (QFT) Mitogen >10.00 IU/mL (.) TB Test (QFT) Antigen 1 >10.00 IU/mL (.) TB Test (QFT) Antigen 2 >10.00 IU/mL (.) TB Test (QFT) Criteria Comment (.) Iron Level 34 ug/dL (65-175) Total Iron Binding Capacity 123 ug/dL (250-425) Percent Iron Saturation 27.6 % (20-55) Ferritin > 3300.0 ng/mL (22-322) Urine Color Yellow (Yellow) Urine Clarity Turbid (Clear) Urine pH 5.0 (5.0-9.0) Urine Specific [place] 1.014 (1.001-1.035) Urine Protein 1+ (Negative) Urine Ketones Negative (Negative) Urine Blood 3+ /uL (Negative) Urine Nitrite Negative (Negative) Urine Bilirubin Negative (Negative) Urine Urobilinogen Normal mg/dL (Negative) Urine Leukocyte Esterase Negative /uL (Negative) Urine RBC 252 /hpf (0 - 3) Urine Microscopic WBC 6 /HPF (0-3) Urine Squamous Epithelial Cells None seen /hpf (<5) Urine Bacteria None seen /hpf (None Seen) Urine Glucose Normal mg/dL (Normal) Test 12/08/24 05:04 12/07/24 20:15 12/07/24 13:55 12/07/24 04:47 B-Type Natriuretic Peptide 374.68 pg/mL (0-100) Hepatitis A IgM Antibody Negative Hepatitis B Surface Antigen Negative (Negative) Hepatitis B Core IgM Antibody Negative (Negative) Hepatitis C Antibody Negative (Negative) Triglycerides Level 141 mg/dL (< 150) Cholesterol Level 77 mg/dL (< 200) LDL Cholesterol 20 mg/dL (< 100) HDL Cholesterol 9 mg/dL (40-59) Hepatitis B Core Total Antibody Negative (Negative) Test 12/06/24 10:37 12/06/24 04:40 12/05/24 21:10 12/05/24 18:30 Globulin (PEP) 3.7 g/dL (2.2-3.9) Albumin/Globulin Ratio 0.4 (0.7-1.7) Akiow-2-Owzewrqfv 0.5 g/dL (0.0-0.4) Upsvh-5-Ozopjmarf 1.2 g/dL (0.4-1.0) Beta Globulins 0.9 g/dL (0.7-1.3) Gamma Globulins 1.2 g/dL (0.4-1.8) Protein Electrophoresis M-Rehan Not observed g/dL (Not Protein Electrophoresis Note Comment (.) Anti-Cyclic Citrullinated Peptide 7 units (0-19) Anti-Nuclear Antibody Screen Negative (Negative) Cytomegalovirus IgG Antibody >10.00 U/mL (0.00-0.59) Cytomegalovirus IgM Antibody <30.0 AU/mL (0.0-29.9) Christine-Deshpande Virus Capsid Ag IgG Ab >600.0 U/mL (0.0-17.9) Lactate Dehydrogenase 322 U/L (120-246) Thyroid Stimulating Hormone (TSH) 0.70 uIU/mL (0.55-4.78) Hepatitis B Surface Antibody Negative (Negative) Troponin I High Sensitivity 70 ng/L (</=54) Blood Gas Specimen Type Arterial Blood Gas Sample Site Right radial Blood Gas Patient Temperature 37.0 Arterial Blood Date Drawn [id number] Arterial Blood pH 7.438 (7.350-7.450) Arterial Blood Partial Pressure CO2 27.0 mmHg (35.0-48.0) Arterial Blood Partial Pressure O2 78.8 mmHg (83.0-108.0) Arterial Blood HCO3 17.8 mmol/L (21.0-28.0) Arterial Blood Oxygen Saturation 94.5 % (94.0-98.0) Arterial Blood Base Excess -5.4 mmol/L (-2.0-3.0) Arterial Blood Oxyhemoglobin 93.4 % (94.0-98.0) Arterial Blood Carboxyhemoglobin 0.3 % (0.5-1.5) Arterial Blood Methemoglobin 0.9 % (0.0-1.5) Khadar Test Modified Blood Gas Total Hemoglobin 8.60 g/dL (13.5-17.5) Blood Gas Liter Flow 6.00 Blood Gas Modality Nasal cannula FiO2 % 44.0 Test 12/05/24 12:11 12/05/24 05:13 12/04/24 16:50 12/04/24 07:00 Erythrocyte Sedimentation Rate 88 mm/hr (0-20) C-Reactive Protein High Sensitivity 15.65 mg/dL (<1.0) Urine Amorphous Crystals Few /hpf (None Seen) Urine Protein/Creatinine Ratio 1.84 Urine Total Protein 129.7 mg/dL (1-14) Urine Opiates Screen Neg (NEGATIVE) Urine Fentanyl Screen Neg (NEGATIVE) Urine Barbiturates Screen Neg (NEGATIVE) Urine Phencyclidine Screen Neg (NEGATIVE) Urine Amphetamines Screen Neg (NEGATIVE) Urine Benzodiazepines Screen Neg (NEGATIVE) Urine Cocaine Screen Neg (NEGATIVE) Urine Cannabinoids Screen Neg (NEGATIVE) Reticulocyte Count (auto) 0.77 % (0.5-1.5) D-Dimer, Quantitative 3.43 mg/L FEU (0.0-0.49) Parathyroid Hormone (Intact) 15.7 pg/mL (18.4-80.1) Test 12/04/24 05:30 12/04/24 04:50 Influenza Type A Antigen Negative (Negative) Influenza Type B Antigen Negative (Negative) SARS-CoV-2 Antigen (Rapid) Negative (NEGATIVE) Hemoglobin A1c 5.9 % A1C (<5.7) Vitamin B12 Level 1395 pg/mL (211-911) Vitamin D 25-Hydroxy 11.9 ng/mL (30.0-100) Other Laboratory Tests 12/24/24 11:50 Brief Hx & Hospital Course: Mr. Wolfgang White was a 59-year-old male with a past medical history of coronary artery disease (status post CABG in October 2024), ischemic stroke, chronic kidney disease on dialysis, chronic indwelling Jones, hypertension, hyperlipidemia, and newly diagnosed Hodgkin lymphoma. He was admitted with fever, altered mental status, and weakness. Workup revealed septic shock likely secondary to pneumonia, febrile neutropenia, and acute kidney injury requiring dialysis. Imaging and labs showed evidence of cardiogenic strokes, ongoing diarrhea, and sacral necrosis. Throughout his hospitalization, he remained hemodynamically unstable and intermittently required vasopressor support. He developed worsening liver function with elevated bilirubin levels; right upper quadrant ultrasound later showed possible acalculous cholecystitis. Despite continued broad-spectrum antibiotics, vasopressors, and supportive care, the patient remained critically ill. he became progressively more encephalopathic, GCS trended down, and he required intubation. Black secretions were noted during a difficult intubation. He developed ventricular fibrillation, which was defibrillated three times. After discussion with the family regarding the poor prognosis, code status was changed to DNR. Mr. Narciso White peacefully at 2:19 p.m (12/24/2024). Case discussed with Dr Salas Consults/Reason for consult multiple: cardiology sp cabg, neurology stroke, pulmonology and critical care, hematology, ID, nephrology, hematology Operations or Procedures Procedure: CT CHEST WITHOUT CONTRAST Reason for study/Clinical History: RULE mediastinal abscess Comparison Study: Chest radiograph performed on 12/03/2024 Exam Date: 12/04/2024 08:34 AM TECHNIQUE: Multidetector CT of the chest was performed from the lung apices to the upper abdomen without the use of intravenous contract. Coronal and sagittal multiplanar reformats were performed. Radiation Dose Information: CT Dose: CTDI volume is 11.81 mGy. Dose-length product is 402.91 mGy*cm The dose indicators for CT are the volume Computed Tomography (CT) Dose Index (CTDIvol) and the Dose Length Product (DLP), and are measured in units of mGy and mGy-cm, respectively. These indicators are not patient dose, but values generated from the CT scanner acquisition factors. The report includes radiation exposure data for exposures received during this examination. FINDINGS: Lower neck: 7 mm hypodense right thyroid nodule Lungs: Bilateral lower lobe opacities. Pleura: Small bilateral pleural effusions. No pneumothorax. Central airways: Patent. Heart/Vascular Structures: Normal heart size. Postsurgical changes in the stomach. Trace pericardial effusion. Cardiomegaly. Coronary artery calcifications. Normal caliber thoracic aorta and main pulmonary artery. Mediastinum: Trace retrosternal fat stranding and fluid. No definite fluid collection. No hilar lymphadenopathy. Subcentimeter lymph nodes in the retrosternal space. Subcentimeter left supraclavicular lymph nodes. No axillary lymphadenopathy. Musculoskeletal: No acute osseous abnormality. Status post median sternotomy. Soft tissues: Normal. Upper abdomen: Limited portions of the upper abdomen are unremarkable. IMPRESSION: 1. Status post median sternotomy. No cortical destruction. Substernal soft tissue density and stranding without a large fluid collection. Fat stranding is nonspecific and should be correlated with timing of surgery. Alternatively this could reflect an infectious or inflammatory etiology. 2. Small bilateral pleural effusions and passive atelectasis. 3. Cardiomegaly. CT CT AB PEL WO CON-NO ORAL OR IV INDICATION: sepsis, neutropenia, urinary obstruction EXAM DATE: 12/05/2024 09:44 AM COMPARISON: None RADIATION DOSE: CTDIvol: 8.95 mGy, DLP: 631.64 mGy*cm PROCEDURE: Helical CT images were obtained of the abdomen and pelvis without IV contrast Sagittal and coronal reconstructions are provided. ORAL CONTRAST: None. ADDITIONAL IMAGES / REFORMATS: None All CT scans at this medical facility are performed using dose modulation techniques as appropriate to a performed exam including the following: Automated exposure control was utilized; adjustment of the MA and/or KV according to patient size; and use of iterative reconstruction technique. FINDINGS: LUNG BASE: Normal. LIVER: Normal. GALLBLADDER AND BILIARY TREE: No calcified gallstones. Normal caliber wall. No intra- or extrahepatic biliary ductal dilation. PANCREAS: Normal. SPLEEN: Normal. BOWEL: Normal. ADRENALS: Normal. KIDNEYS AND URETER: Normal. BLADDER: Gas in the bladder could be from recent instrumentation. REPRODUCTIVE ORGANS: Normal. LYMPH NODES:Retroperitoneal lymphadenopathy with a 3.3 cm in the right groin. PERITONEUM: No ascites or free air. No other fluid collection. VESSELS: Scattered atherosclerotic calcifications are noted. RETROPERITONEUM: Normal. ABDOMINAL WALL: Normal. BONES: Scattered osseous degenerative changes are noted. IMPRESSION: Retroperitoneal lymphadenopathy with a 3.3 cm in the right groin. Lymphoma is a consideration. MRI BRAIN WITHOUT CONTRAST CLINICAL HISTORY: rule out stroke TECHNIQUE: Multiplanar, multisequence MR images of the brain without intravenous contrast. Comparison: CT head 12/05/2024 FINDINGS: There is an approximately 1.9 x 1.0 cm area of restricted diffusion involving the anterior body/genu of the corpus callosum consistent with an acute to subacute infarct. There are also additional scattered punctate foci of restricted diffusion in the bilateral frontal and right parietal lobe deep white matter which may represent smaller infarcts. There is no evidence of acute hemorrhage. There is no significant edema or mass effect. There is no hydrocephalus or extra-axial fluid collection. The visualized intracranial vasculature demonstrates appropriate flow-voids. The craniocervical junction is within normal limits. The calvarium demonstrates normal marrow signal. There is mild mucosal thickening in the maxillary sinuses. Mastoid air cells appear clear. IMPRESSION: 1. There is a small area of restricted diffusion involving the anterior body / genu of the corpus callosum consistent with an acute to subacute infarct. There is no evidence of acute hemorrhage. There is no mass effect. 2. There are additional scattered punctate foci of restricted diffusion in the bilateral frontal and right parietal lobe deep white matter which may represent tiny foci of acute to subacute infarcts. MRI Abdomen, MRCP without IV Contrast Exam Date: 12/11/2024 02:19 PM Comparison: None History: Rule out cholangitis Technique: Multisequence multiplanar MRI images were obtained of the abomen. MRCP including 3D SPACE, Radial 2D slabs and SPACE 3D MIP images Findings: Moderate right pleural effusion. Left basilar subsegmental atelectasis. Liver: The liver is normal in size without focal lesions. Normal liver contour. Spleen: Splenomegaly. Pancreas: The pancreas is normal in appearance without focal lesions. Gallbladder and ducts: Gallbladder is normal in appearance. The cystic duct, right and left hepatic ducts, common hepatic duct, and common bile ducts are unremarkable. The pancreatic duct is within normal limits. Adrenal glands: Unremarkable. Kidneys: Normal enhancement without suspicious lesions or hydronephrosis. Visualized bowel: Grossly unremarkable. Vasculature: Unremarkable. Lymphadenopathy: No evidence for lymphadenopathy. Ascites: Absent. Musculoskeletal: Bone marrow signal is normal. IMPRESSION: Limited examination secondary to patient motion artifact. MRCP sequences are motion degraded. Gallbladder is decompressed without appreciable stones or sludge. Small volume ascites. Splenomegaly. Final Diagnosis/Problems List #Hodgkin Lymphoma #Pancitopenia resolved #neutropenia resolved #Retroperitoneal lymphadenopathy #Normochromic and normocytic Anemia multifactorial: rule out neoplasm, CKD #Thrombocytopenia #Acute metabolic/hypoxic encephalopathy due to stroke and sepsis #Possible acute cardioembolic stroke: corpus callosum, bilateral frontal and right parietal #corpus callosum stroke 1.9*1.0 cm #Recrudescence of stroke oct 2024 due to shock #Rule out septic emboli #Severe coronary artery disease status post triple-vessel CABG #Substernal soft tissue density likely secondary to recent CABG #Possible acute on Chronic HFpEF, NYHA class III #Septic shock due to possible pneumonia #Acute respiratory failure #PNA gram+/gram- #Small bilateral pleural effusions #Passive atelectasis #Mixed base disorder: respiratory alkalosis and metabolic acidosis #Transaminitis secondary to chronic liver disease #Gallbladder polyps #Hyperbilirubinemia #Questionable typhlitis #Diarrhea in immunocompromised patoent #GOPAL VMN due to septic shock #ESRD #Dialysis urgency #Severe fluid overload #Hyperkalemia secondary to CKD #Hyperparathyroidism #Mixed base disorder: respiratory alkalosis and metabolic acidosis #Chronic indwelling Jones #Febrile neutropenia #Septic shock due to possible pneumonia? #Possible septic emboli? #sacral wound #Rule out opportunistic infections #Possible tiflitis #s/p debridement of sacral wound #Hypoglycemia #Prediabetes Discharge Disposition: at Hospital Date of Service: Dec 24, 2024 Billing Provider: RADHA SALAS MD Common Visit Codes: [id number] CARE 30-74 MIN, [id number] CARE-EACH +30MIN Coding Comment Comment critical care time including code blue 120 minutes KAMILLE VÁSQUEZ Dec 24, 2024 14:30 RADHA SALAS MD Dec 25, 2024 20:21
[2024-12-24] MEDS ORDERED: VORICONAZOLE INJ 400 MG in D5W 5% 250 ML IV SCH (15:00)
[2024-12-24] MEDS ORDERED: AMIODARONE 360mg/200mL PREMIX 200 ML IV SCH (18:15)
--- NOTE | 2024-12-24 19:47 | RESUS ---
MICHELINE ABARCA ASSESSSMENT History of Events History of Events: PER PRIMARY RN, PATIENT NOTED TO HAVE A CHANGE IN CARDIAC RHYTHM DISPLAYED ON BEDSIDE FINANCE EFFECTIVENESS MANAGER. UPON ASSESSMENT, NO PALPABLE PULSE DETECTED. MICHELINE ABARCA INITIATED Initial Information Date: Dec 24, 2024 Time: 11:12 Location of Arrest: ICU (Central) Arrest Witnessed: Yes CPR started initial time: 11:12 CPR started by whom: Hospital Staff Type of arrest: Cardiac Spontaneous Respirations: No Pulse Present: No Monitoring: Pulse Oximetry, Capnography, Telemetry Crash Cart Opened and Supplies: Yes Airway Ventilation Breathing at Onset: Assisted Oxygen Delivery Method: Ambu-Bag Artificial Ventilation: Bag/Mask, Bag/Endo tube Intubation Time: 11:17 Intubation Size: 8.0 cuffed Intubated by: DR RODRIGUEZ Intubation Attempts: 1 Intubated orally: Yes Tube secured at: 24 CO2 indicator used: Yes Confirmation: Auscultation, Exhaled CO2 Suctioning (Oral/Tracheal): Yes Circulation Circulation #1: Time: 11:14 Circulation Comment: PEA Circulation #2: Time: 11:16 Circulation Comment: [place]OLE Circulation #3: Time: 11:18 Circulation Comment: VFIB Circulation #4: Time: 11:22 Pulse Rate (adult): 80 Circulation Comment: ROSC HR RANGING 80-120 BPM PULSE IS WEAK AND THREADY Circulation #5: Time: 11:24 Circulation Comment: [place] Circulation #6: Time: 11:26 Circulation Comment: [place] Circulation #7: Time: 11:28 Pulse Rate (adult): 160 Blood Pressure Systolic: 182 Blood Pressure Diastolic: 84 Circulation Comment: ROSC Circulation #8: Time: 11:30 Circulation Comment: V TACH Circulation #9: Time: 11:32 Circulation Comment: [place] Circulation #10: Time: 11:34 Circulation Comment: ROSC Circulation #11: Time: 11:35 Circulation Comment: VFIB Circulation #12: Time: 11:37 Pulse Rate (adult): 94 Blood Pressure Systolic: 150 Blood Pressure Diastolic: 72 Circulation Comment: ROSC WIDE QRS COMPLEX Defibrillation Defbrillation #1: Time Defibrillator Applied: 11:18 EKG Rhythm: V-Fibrillation Compressions: Manual Defib. Joules: 120 Pulse Present: No Defbrillation #2: Time Defibrillator Applied: 11:20 EKG Rhythm: V-Fibrillation Defib. Joules: 150 Pulse Present: No Defbrillation #3: Time Defibrillator Applied: 11:35 EKG Rhythm: V-Fibrillation Defib. Joules: 200 Medications & Response Medications and Responses #1: Medication Time: 11:13 ADULT Medications Given ADULT: Epinephrine 1 mg Route of Administration: IV Medications and Responses #2: Medication Time: 11:16 ADULT Medications Given ADULT: Epinephrine 1 mg, Sodium Bacarbinate 50 meq Route of Administration: IV Medications and Responses #3: Medication Time: 11:19 ADULT Medications Given ADULT: Epinephrine 1 mg, Calcium Chloride 10 mL Route of Administration: IV Medications and Responses #4: Medication Time: 11:20 ADULT Medications Given ADULT: Amiodarone 300 mg Route of Administration: IV Medications and Responses #5: Medication Time: 11:24 ADULT Medications Given ADULT: Epinephrine 1 mg, Sodium Bacarbinate 50 meq, Calcium Chloride 10 mL Route of Administration: IV Medications and Responses #6: Medication Time: 11:27 ADULT Medications Given ADULT: Epinephrine 1 mg Route of Administration: IV Medications and Responses #7: Medication Time: 11:30 ADULT Medications Given ADULT: Amiodarone 150 mg Route of Administration: IV Medications and Responses #8: Medication Time: 11:33 ADULT Medications Given ADULT: Epinephrine 1 mg, Sodium Bacarbinate 50 meq Procedure - Central Venous Cat Comment: PRESENT PRIOR TO CODE BLUE Nurses Notes [place] Coma Scale Eye Opening: None (1) [place] Coma Scale Verbal: None (1) Мария Coma Scale Motor: None (1) [place] Total: 3 Pupil Reaction: Non Reactive Bedside Blood Glucose: 141 Time Code Ended Time Code Ended: 11:38 Post Arrest Status: Ventilated Outcome of code: Successful Code Team Present: DR AMRIK FAIRBANKS RN PRETTY RT HOMERO ROSC Time of ROSC: 11:38 Pretty Buitrago Dec 24, 2024 19:47
--- NOTE | 2024-12-24 20:32 | DVHPN2 ---
Progress Note - Dictate Date Seen: Dec 24, 2024 Has the PT tested + for MRSA If YES, has PT been informed?: No Medical Necessity Reason Pt with a Central, PICC or Fol: Yes The following are medically ne: Pond Catheter Reason for pond catheter: Bladder Retention/Obstruc, Strict I&O Subjective Patient seen and examined at bedside. Sedated, intubated on mechanical ventilator. Overnight events reviewed. vital signs Vital Sign Date Time Temp Pulse Resp B/P (MAP) Pulse Ox O2 Delivery O2 Flow Rate FiO2 12/24/24 19:47 94 Ambu-Bag 12/24/24 14:19 0 12/24/24 14:15 82 12/24/24 14:09 3 32 12/24/24 14:00 98.8 98.8 Total Intake and Output 12/23/24 12/23/24 12/24/24 15:00 23:00 07:00 Intake Total 220.056 ml 412.178 ml 403.288 ml Output Total 300 ml 100 ml Balance 220.056 ml 112.178 ml 303.288 ml medications Current Medications Medications Dose Ordered Sig/Shavon Route Start Time Stop Time Status Last Admin Dose Admin Acetaminophen 650 mg Q6HP PRN PO 12/04/24 03:30 12/23/24 09:11 650 MG Ondansetron HCl 4 mg Q4HP PRN IV 12/04/24 03:30 12/22/24 03:16 4 MG Pantoprazole Sodium 40 mg BID IV 12/04/24 06:45 12/24/24 10:07 40 MG Calcium Acetate 1,334 mg TIDWMEALS PO 12/08/24 12:00 12/24/24 10:08 1,334 MG Multivit/Ca Carb/ B Cmplx/FA/Prenat 1 tab DAILY PO 12/12/24 10:00 12/24/24 10:08 1 TAB Ergocalciferol 50,000 unit Q7D PO 12/12/24 08:45 12/12/24 09:38 50,000 UNIT Enteral Nutritional Formula 240 ml BIDWM PO 12/13/24 08:00 12/17/24 08:21 240 ML Sodium Chloride 10 ml QSHIFT@10,22 IV 12/16/24 22:00 12/24/24 10:07 10 ML Acetaminophen 325 mg Q6HP PRN ND 12/17/24 06:45 Epoetin Tonio-epbx 10,000 unit 2XW SC 12/17/24 12:00 Norepinephrine Bitartrate 250 ml @ 0.938 mls/ hr Q24H IV 12/18/24 06:30 12/23/24 02:09 0.938 MLS/HR Octreotide Acetate 100 mcg TID SUBCUT 12/18/24 14:00 12/23/24 12:54 100 MCG Citalopram Hydrobromide 10 mg DAILY PO 12/20/24 10:00 12/24/24 10:08 10 MG Enteral Nutritional Formula 1,000 ml 30ML/HR GT 12/20/24 18:00 12/23/24 02:05 1,000 ML Diagnostic Test (Pha) 1 strip Q6HR 12/22/24 06:00 12/24/24 13:31 1 STRIP Insulin Human Regular Q6HR SC 12/22/24 06:00 12/22/24 16:19 2 UNITS Dextrose 50 ml UD PRN IV 12/22/24 06:30 Fentanyl Citrate 250 ml @ 2.5 mls/hr Q24H IV 12/24/24 11:00 12/24/24 11:00 2.5 MLS/HR Vasopressin 20 units/Sodium Chloride 100 ml @ 9 mls/hr Q11H7M IV 12/24/24 12:00 12/24/24 12:37 9 MLS/HR Vancomycin HCl 0 ml @ 0 mls/hr UD IV 12/24/24 12:00 Epinephrine HCl 250 ml @ 7.5 mls/hr Q24H IV 12/24/24 12:15 12/24/24 13:26 7.5 MLS/HR Voriconazole 400 mg/Dextrose 290 ml @ 145 mls/hr Q12H IV 12/24/24 15:00 12/25/24 04:59 Voriconazole 300 mg/Dextrose 280 ml @ 140 mls/hr Q12H IV 12/25/24 15:00 Meropenem 50 ml @ 17 mls/hr Q12HR IV 12/24/24 22:00 12/24/24 13:42 17 MLS/HR Phenylephrine HCl 250 ml @ 30 mls/hr Q8H20M IV 12/24/24 14:00 Pantoprazole Sodium 40 mg DAILY IV 12/25/24 10:00 objective Gen.: Patient lying in bed in medical ICU. Sedated, intubated on mechanical ventilator. Head: Normocephalic, atraumatic. Eyes: PERRLA. Ears: Normal external anatomy. Throat: Endotracheal tube and orogastric tube in place. Neck: Supple, trachea midline. Chest: Transmitted breath sounds bilaterally. Decreased air entry bilaterally. No wheezing. Bibasilar crackles. Cardiovascular: Positive S1, positive S2. Regular rate and rhythm. Abdomen: Positive bowel sounds in all 4 quadrants. Soft, nontender, nondistended. : Pond in place. Normal external genitalia. Rectal: Deferred. Skin: Warm, dry. Intact. Extremities: 2+ radial pulses bilaterally. No lower extremity edema. Neuro: Sedated. laboratory and microbiology Laboratory Tests 12/24/24 11:50 Test 12/24/24 11:50 Range/Units Serum Glucose 68 L 74-106 mg/dL Assessment/Plan Impression: Acute hypoxic respiratory failure s/p intubation and VT arrest w/ ROSC 12/24 Possible urinary tract infection CAD, s/p 3-vessel CABG. Septic shock Cerebrovascular accident Left pleural effusion Atelectasis Acute kidney injury requiring HD, first treatment 12/08 AMS Events: Patient currently intubated, on vent support Unstable currently on multiple pressors Titrate to keep mean arterial pressure greater than 65 mmHg Explained high risk of repeat cardiac event on dialysis. Family opted not to do dialysis. Cardiology recs appreciated. Medical treatment for hyperkalemia ordered and sodium bicarb Monitor hemoglobin PRBC ordered Poor prognosis Family agreed for comfort care. Patient is DNR Head of bed elevation Aspiration precautions Hospice candidate Labs and imaging reviewed. Plan: s/p intubation on mechanical ventilator. Titrate FIO2 to keep O2 saturation above 90%. Pressors if necessary for hemodynamic support Titrate to keep mean arterial pressure greater than 65 mmHg. Echocardiogram reviewed, notable for EF 50% Cardiology recs appreciated. Continue antibiotics Continue antifungal Incentive spirometry Accu-Cheks, ISS PRN. Monitor hemoglobin Monitor platelets d/t thrombocytopenia Pain control Avoid oversedation Monitor renal function. Monitor electrolytes. Supplement as necessary. Monitor ins and outs. Pond for strict ins and outs DVT prophylaxis. Hospice candidate Poor prognosis Patient is DNR. Prognosis: Poor given patient's multiple co-morbidities. Condition: Critical Rest of plan per hospitalist and other consultants. A total of 35 minutes of critical care time was spent reviewing the patient record, examining the patient, making a diagnostic and therapeutic plan, discussing this plan with the medical personnel, following up on diagnostic studies and following the patient for clinical stability excluding any and all procedures. At least 50% of this time was spent in direct, [id number] contact. Thank you, Dr. Smith, for allowing me to participate in this patient's care. Further recommendations will depend on the patient's clinical course. Please do not hesitate to contact me if you have any questions or concerns. This medical document was created using an electronic medical record system with [employer] dictation system. Although these documentations are being carefully reviewed, there may still be some phonetic and typographical changes. The errors are purely typographical, due to imperfection on the software program, and do not reflect any compromise in the patient's medical care. Dietary Evaluation Review Comments: 1) Ergocalciferol 50,000IU weekly 2) Jose L 1 pk daily, MVI w/ mineral 1 tab, Vit C 500mg BID, Zinc sulfate 220mg daily x 10 days 3) Advance to [id number] + renal special 80gm protein diet 4) Continue current plan of care Expected Outcomes/Goals: Advance diet to meet at least 75% estimated needs FU 2-3 days Plan discussed with: Other (VIJAY Barnhart) Critical Care Time(min): 35 CC Plasma Assessment Blood Product Administration S: 11:05 JERAMY CAMARA MD Dec 24, 2024 20:32
[2024-12-24] MEDS ORDERED: EPOETIN ALFA-EPBX 10,000 UNIT/1ML VIAL SC ONE (21:00)
[2024-12-25] MEDS ORDERED: PANTOPRAZOLE 40 MG/10 ML VIAL INJ IV SCH (10:00)
[2024-12-25] MEDS ORDERED: VORICONAZOLE INJ 300 MG in D5W 5% 250 ML IV SCH (15:00)
--- NOTE | 2024-12-25 18:12 | DVHPN2 ---
Consult Progress Note Date Seen: Dec 23, 2024 Subjective Patient reports: Feels better (back on pressors, rising, persistent fevers) Objective vital signs Vital Sign Date Time Temp Pulse Resp B/P (MAP) Pulse Ox O2 Delivery O2 Flow Rate FiO2 12/24/24 19:47 94 Ambu-Bag 12/24/24 14:19 0 12/24/24 14:15 82 12/24/24 14:09 3 32 12/24/24 14:00 98.8 98.8 Total Intake and Output 12/24/24 12/24/24 12/25/24 14:59 22:59 06:59 Intake Total 262.339 ml Balance 262.339 ml laboratory and microbiology Laboratory Tests 12/24/24 11:50 Test 12/24/24 11:50 Range/Units Serum Glucose 68 L 74-106 mg/dL Problem List/Assessment/Plan Problem List/Assessment/Plan Physical Exam Patient lintubated and sedated, pale, cold skin General: Lucid, afebrile, mucosae are moist. Mucositis of tongue Cardiovascular: Normal S1 and S2. No murmurs, gallops or rubs. Sternotomy is stable, with no secretions or erythema, no cracking Respiratory: Normal ventilation mechanics. Clear lung sounds on auscultation. With requirement of nasal cannula at 4 liters/minute Abdomen: Soft, nontender, no organomegaly, normal bowel sounds MSK/skin: Mobilizes 4 limbs. Skin is dry and warm. Decubitus ulcer grade 3, with mild yellow-greenish secretion Neurological: Oriented in 3 spheres. Presents motor weakness of four limbs predominantly on right side, no motor no sensitive deficits. Bradypsychia. Pupils are isocoric and reactive Assessment Febrile neutropenia Questionable typhlitis Hodgkin lymphoma Rule out opportunistic infection Ruled out cholangitis Rule out mediastinitis Transaminitis Ruled out hemolysis Multiple CVAs - Ruled out infective endocarditis GOPAL hemodynamically mediated on CKD - currently on hemodialysis Pancytopenia - status post lymph node resection and bone marrow biopsy (rule out malignancy) Coronary artery disease status post triple-vessel CABG complicated with cardiac arrest and multiple strokes Decubitus ulcer - present on admission acute cholagitis 12/14: on/off levophed, leukocytosis is improving, 12/15: rising levophed needs 12/16: still having fevers, suspect functional neutropenia 12/17: diarrhea slowly improving coming off pressors 12/18 rising biling, on/off pressors 12/19 sp lower back debridement 12/20: micafungin stopped 12/21: US w. acute cholangitis 12/22: leukocytosis is improving , however is still hypertensive and having fevers , reji shanks continues to rise 12/23: persistent fever, back on pressors Plan/Recommendation - recommend checking lactic acid if pressures continue to rise and repeating blood cultures - continue to transfuse for low platelets under 50 , low hemoglobin under 7 Ordered QuantiFERON (tuberculosis suspicion is low), HIV (negative), cocci serology, Aspergillus and histoplasmosis antibodies, wound culture (preliminary yeast, Streptococcus viridans and Enterococcus), and sputum culture (normal oropharyngeal la). All three blood cultures sets negative at the moment. Urine culture negative. MRSA swabs were negative. Low probability of MRSA pneumonia. If considering infection source, high suspicion of neutropenic enterocolitis/typhlitis. Per primary team, lymph node biopsy revealed classic Hodgkin lymphoma. Heme oncologist specialist on board. We will continue empiric IV antibiotics (meropenem and daptomycin > current therapy will adequately cover for acute cholangitis Currently patient is on meropenem, daptomycin (to cover MRSA sepsis, not pneumonia), and micafungin. May consider switching to voriconazole depending on results of fungal serology Positive GGT (approximately 400), elevated alkaline phosphate probable biliary origin. MRCP ruled out bile duct or gallbladder distention, evidence trace ascites and splenomegaly. Negative direct Farrukh and haptoglobin, ruled out hemolysis Mediastinitis still not ruled out due to imaging without IV contrast, but diagnosis is highly unlikely due to stable sternotomy with no presence of secretion. Biopsy of lymph node showed activated T lymphocytes (nonconclusive). Pending bone marrow biopsy results Appreciate input of neurologist, bank advisor, outside sales and cook soup specialist. Evaluate continuing DAPT per bank advisor recommendation Rest of recommendations per primary team. Discussed plan with Dr. Reeder, patient and nurses: Have ordered complementary study for opportunistic infections, mostly negative, some pending. Patient is currently under broad spectrum empiric IV antibiotics and antifungal medication (Cefepime, daptomycin and micafungin), we will modify antibiotic treatment as complementary workup is resulted. Lymph node biopsy shows probable classic Hodgkin lymphoma, Heme-Onc input appreciated. Patient has poor prognosis I performed a history and physical exam of this patient and discussed the management with the medical student listed here. I reviewed the note, agree with the documented findings and plan of care (except as noted in my additions and changes below), and believe this is an accurate representation of the ED clinical course. - Marc Reeder Plan discussed with: Patient Dietary Evaluation Review Comments: 1) Ergocalciferol 50,000IU weekly 2) Jose L 1 pk daily, MVI w/ mineral 1 tab, Vit C 500mg BID, Zinc sulfate 220mg daily x 10 days 3) Advance to [id number] + renal special 80gm protein diet 4) Continue current plan of care Expected Outcomes/Goals: Advance diet to meet at least 75% estimated needs FU 2-3 days CC Plasma Assessment Blood Product Administration S: 11:05 MARC REEDER MD Dec 25, 2024 18:12
--- NOTE | 2024-12-25 18:28 | DVHPN2 ---
Consult Progress Note Date Seen: Dec 24, 2024 Subjective Patient reports: Feels better (levophed 10, fiO2 100%) Objective vital signs Vital Sign Date Time Temp Pulse Resp B/P (MAP) Pulse Ox O2 Delivery O2 Flow Rate FiO2 12/24/24 19:47 94 Ambu-Bag 12/24/24 14:19 0 12/24/24 14:15 82 12/24/24 14:09 3 32 12/24/24 14:00 98.8 98.8 Total Intake and Output 12/24/24 12/24/24 12/25/24 15:00 23:00 07:00 Intake Total 246.551 ml Balance 246.551 ml laboratory and microbiology Laboratory Tests 12/24/24 11:50 Test 12/24/24 11:50 Range/Units Serum Glucose 68 L 74-106 mg/dL Problem List/Assessment/Plan Problem List/Assessment/Plan Physical Exam Patient lintubated and sedated, pale, cold skin General: Lucid, afebrile, mucosae are moist. Mucositis of tongue Cardiovascular: Normal S1 and S2. No murmurs, gallops or rubs. Sternotomy is stable, with no secretions or erythema, no cracking Respiratory: Normal ventilation mechanics. Clear lung sounds on auscultation. With requirement of nasal cannula at 4 liters/minute Abdomen: Soft, nontender, no organomegaly, normal bowel sounds MSK/skin: Mobilizes 4 limbs. Skin is dry and warm. Decubitus ulcer grade 3, with mild yellow-greenish secretion Neurological: Oriented in 3 spheres. Presents motor weakness of four limbs predominantly on right side, no motor no sensitive deficits. Bradypsychia. Pupils are isocoric and reactive Assessment Febrile neutropenia Questionable typhlitis Hodgkin lymphoma Rule out opportunistic infection Ruled out cholangitis Rule out mediastinitis Transaminitis Ruled out hemolysis Multiple CVAs - Ruled out infective endocarditis GOPAL hemodynamically mediated on CKD - currently on hemodialysis Pancytopenia - status post lymph node resection and bone marrow biopsy (rule out malignancy) Coronary artery disease status post triple-vessel CABG complicated with cardiac arrest and multiple strokes Decubitus ulcer - present on admission acute cholagitis 12/14: on/off levophed, leukocytosis is improving, 12/15: rising levophed needs 12/16: still having fevers, suspect functional neutropenia 12/17: diarrhea slowly improving coming off pressors 12/18 rising biling, on/off pressors 12/19 sp lower back debridement 12/20: micafungin stopped 12/21: US w. acute cholangitis 12/22: leukocytosis is improving , however is still hypertensive and having fevers , reji shanks continues to rise 12/23: persistent fever, back on pressors 12/24: maxed on vent, black sputum, rising LFTs, improved lactic acid, anemia of 6.4 Plan/Recommendation - recommend checking lactic acid if pressures continue to rise and repeating blood cultures - continue to transfuse for low platelets under 50 , low hemoglobin under 7 Ordered QuantiFERON (tuberculosis suspicion is low), HIV (negative), cocci serology, Aspergillus and histoplasmosis antibodies, wound culture (preliminary yeast, Streptococcus viridans and Enterococcus), and sputum culture (normal oropharyngeal la). All three blood cultures sets negative at the moment. Urine culture negative. MRSA swabs were negative. Low probability of MRSA pneumonia. If considering infection source, high suspicion of neutropenic enterocolitis/typhlitis. Per primary team, lymph node biopsy revealed classic Hodgkin lymphoma. Heme oncologist specialist on board. We will continue empiric IV antibiotics (meropenem and daptomycin > current therapy will adequately cover for acute cholangitis Currently patient is on meropenem, daptomycin (to cover MRSA sepsis, not pneumonia), and micafungin. suspect bleeding is etiology is black sputum/hemetemesis, however will add voriconazole to micafungin given persistent hypoxic respiratory failure and immunocomprimised state warranting aspergillus coverage Positive GGT (approximately 400), elevated alkaline phosphate probable biliary origin. MRCP ruled out bile duct or gallbladder distention, evidence trace ascites and splenomegaly. Negative direct Farrukh and haptoglobin, ruled out hemolysis Mediastinitis still not ruled out due to imaging without IV contrast, but diagnosis is highly unlikely due to stable sternotomy with no presence of secretion. Biopsy of lymph node showed activated T lymphocytes (nonconclusive). Pending bone marrow biopsy results Appreciate input of neurologist, sec accountant, acoustical tile drill press operator and change house attendant specialist. Evaluate continuing DAPT per sec accountant recommendation Rest of recommendations per primary team. Discussed plan with Dr. Reeder, patient and nurses: Have ordered complementary study for opportunistic infections, mostly negative, some pending. Patient is currently under broad spectrum empiric IV antibiotics and antifungal medication (Cefepime, daptomycin and micafungin), we will modify antibiotic treatment as complementary workup is resulted. Lymph node biopsy shows probable classic Hodgkin lymphoma, Heme-Onc input appreciated. Patient has poor prognosis Authorized and Performed by: andrez reeder Total critical care time: Approximately 76 minutes Due to a high probability of clinically significant, life threatening deterioration, the patient required my highest level of preparedness to intervene emergently and I personally spent this critical care time directly and personally managing the patient. This critical care time included obtaining a history; examining the patient; pulse oximetry; ordering and review of studies; arranging urgent treatment with development of a management plan; evaluation of patient's response to treatment; frequent reassessment; and, discussions with other providers. This critical care time was performed to assess and manage the high probability of imminent, life-threatening deterioration that could result in multi-organ failure. It was exclusive of separately billable procedures and treating other patients and teaching time. I performed a history and physical exam of this patient and discussed the management with the medical student listed here. I reviewed the note, agree with the documented findings and plan of care (except as noted in my additions and changes below), and believe this is an accurate representation of the ED clinical course. - Andrez Reeder Plan discussed with: Patient Dietary Evaluation Review Comments: 1) Ergocalciferol 50,000IU weekly 2) Jose L 1 pk daily, MVI w/ mineral 1 tab, Vit C 500mg BID, Zinc sulfate 220mg daily x 10 days 3) Advance to [id number] + renal special 80gm protein diet 4) Continue current plan of care Expected Outcomes/Goals: Advance diet to meet at least 75% estimated needs FU 2-3 days CC Plasma Assessment Blood Product Administration S: 11:05 ANDREZ REEDER MD Dec 25, 2024 18:28
--- NOTE | 2024-12-25 21:33 | DVHNC2 ---
Intubation Indication: Respiratory Insufficiency Prep: Preoxygenation Pretreated with: Other (etomidate) Medicated with: Other Intubation Approach: Orotracheal Intubation size: cm (7.5) Notes copious thick black secretion found in oropharyngeal space prior to intubation, difficulty entering larynx due to limited visibility, suctioning done and pa tient bagged to improve oxygenation before reattempt on intubation. in my opinion black secreiton does not look like coffee ground or bleeding, possibly some sort of fungal infection from the lung Date of Service: Dec 24, 2024 Billing Provider: RADHA ROWLEY MD Common Visit Codes: PROCEDURE ONLY Procedure Codes: 68140-[id number] RADHA ROWLEY MD Dec 25, 2024 21:33
--- NOTE | 2024-12-25 22:44 | DVHSR ---
APPROVED REPORT EXAM: Two-dimensional and M-mode echocardiogram with Doppler and color Doppler. Mitral Valve MitralMitral Stenosis E/A ratio0.02D MVAcm2 LEFT VENTRICLE The left ventricle is normal size. There is mildconcentric left ventricular hypertrophy. The left ventricle is normal in structure and function. Left ventricle systolic function is normal. The Ejection Fraction is 55-60%. No regional wall motion abnormalities noted. RIGHT VENTRICLE The right ventricle is normal size. There is normal right ventricular wall thickness. The right ventricular systolic function is normal. ATRIA The left atrium size is normal. The right atrium size is normal. The interatrial septum is intact with no evidence for an atrial septal defect. MITRAL VALVE The mitral valve is normal in structure and function. There is no evidence of mitral valve prolapse. There is no mitral valve stenosis. There is no mitral valve regurgitation noted. PULMONIC VALVE The pulmonary valve is normal in structure and function. There is no pulmonic valvular regurgitation. There is no pulmonic valvular stenosis. TRICUSPID VALVE The tricuspid valve is normal in structure and function. There is no tricuspid valve regurgitation noted. There is no tricuspid valve prolapse or vegetation. There is no tricuspid valve stenosis. AORTIC VALVE The aortic valve is normal in structure and function. No aortic regurgitation is present. There is no aortic valvular stenosis. There is no aortic valvular vegetation. GREAT VESSELS The aortic root is normal in size. PERICARDIAL EFFUSION There is a no pericardial effusion. Conclusion There is mild concentric left ventricular hypertrophy. The left ventricle is normal in structure and function. Left ventricle systolic function is normal. The Ejection Fraction is 55-60%. There is mild mitral regurgitation. There is a trivial pericardial effusion.
== END 2024-12-24 22:20 | DRG 853 ==
LOC: ER 21:16 → EDBD 21:16 → OVERFLOW 12-04 03:23 → EDUNIT# 12-04 03:23 → TELE-CENTR 12-04 15:09 → DOU IN ICU 12-05 20:00 → ICU CENTRL 12-06 12:09
PROVIDERS: ADMIT Student in an Organized Health Care Education/Training Program; ATTEND Emergency Medicine
PROC: 07BH3ZX Excision of Right Inguinal Lymphatic, Percutaneous Approach, Diagnostic (ICD-10-PCS; principal; 2024-12-06)
PROC: 30233N1 Transfusion of Nonautologous Red Blood Cells into Peripheral Vein, Percutaneous Approach (ICD-10-PCS; 2024-12-06)
PROC: B246ZZ4 Ultrasonography of Right and Left Heart, Transesophageal (ICD-10-PCS; 2024-12-07)
PROC: 5A1D70Z Performance of Urinary Filtration, Intermittent, Less than 6 Hours Per Day (ICD-10-PCS; 2024-12-08)
PROC: 02HV33Z Insertion of Infusion Device into Superior Vena Cava, Percutaneous Approach (ICD-10-PCS; 2024-12-08)
PROC: B548ZZA Ultrasonography of Superior Vena Cava, Guidance (ICD-10-PCS; 2024-12-08)
PROC: 05HA33Z Insertion of Infusion Device into Left Brachial Vein, Percutaneous Approach (ICD-10-PCS; 2024-12-08)
PROC: B54NZZA Ultrasonography of Left Upper Extremity Veins, Guidance (ICD-10-PCS; 2024-12-08)
PROC: 5A1D70Z Performance of Urinary Filtration, Intermittent, Less than 6 Hours Per Day (ICD-10-PCS; 2024-12-09)
PROC: 079T3ZX Drainage of Bone Marrow, Percutaneous Approach, Diagnostic (ICD-10-PCS; 2024-12-10)
PROC: 07DT3ZX Extraction of Bone Marrow, Percutaneous Approach, Diagnostic (ICD-10-PCS; 2024-12-10)
PROC: 5A1D70Z Performance of Urinary Filtration, Intermittent, Less than 6 Hours Per Day (ICD-10-PCS; 2024-12-11)
PROC: 5A1D70Z Performance of Urinary Filtration, Intermittent, Less than 6 Hours Per Day (ICD-10-PCS; 2024-12-13)
PROC: 0JH63XZ Insertion of Tunneled Vascular Access Device into Chest Subcutaneous Tissue and Fascia, Percutaneous Approach (ICD-10-PCS; 2024-12-13)
PROC: 02HV33Z Insertion of Infusion Device into Superior Vena Cava, Percutaneous Approach (ICD-10-PCS; 2024-12-13)
PROC: B518ZZA Fluoroscopy of Superior Vena Cava, Guidance (ICD-10-PCS; 2024-12-13)
PROC: B548ZZA Ultrasonography of Superior Vena Cava, Guidance (ICD-10-PCS; 2024-12-13)
PROC: 5A1D70Z Performance of Urinary Filtration, Intermittent, Less than 6 Hours Per Day (ICD-10-PCS; 2024-12-14)
PROC: 02HV33Z Insertion of Infusion Device into Superior Vena Cava, Percutaneous Approach (ICD-10-PCS; 2024-12-16)
PROC: B548ZZA Ultrasonography of Superior Vena Cava, Guidance (ICD-10-PCS; 2024-12-16)
PROC: 5A1D70Z Performance of Urinary Filtration, Intermittent, Less than 6 Hours Per Day (ICD-10-PCS; 2024-12-17)
PROC: 5A1D70Z Performance of Urinary Filtration, Intermittent, Less than 6 Hours Per Day (ICD-10-PCS; 2024-12-19)
PROC: 0JB73ZZ Excision of Back Subcutaneous Tissue and Fascia, Percutaneous Approach (ICD-10-PCS; 2024-12-20)
PROC: 0D9670Z Drainage of Stomach with Drainage Device, Via Natural or Artificial Opening (ICD-10-PCS; 2024-12-20)
PROC: 5A1D70Z Performance of Urinary Filtration, Intermittent, Less than 6 Hours Per Day (ICD-10-PCS; 2024-12-21)
PROC: 5A12012 Performance of Cardiac Output, Single, Manual (ICD-10-PCS; 2024-12-24)
DX: A41.50 Gram-negative sepsis, unspecified (principal); G92.8 Other toxic encephalopathy; L89.893 Pressure ulcer of other site, stage 3; L89.153 Pressure ulcer of sacral region, stage 3; I50.33 Acute on chronic diastolic (congestive) heart failure; J96.01 Acute respiratory failure with hypoxia; N17.0 Acute kidney failure with tubular necrosis; R65.21 Severe sepsis with septic shock; J15.69 Pneumonia due to other Gram-negative bacteria; N18.6 End stage renal disease; I50.23 Acute on chronic systolic (congestive) heart failure; I63.9 Cerebral infarction, unspecified; E87.1 Hypo-osmolality and hyponatremia; N30.00 Acute cystitis without hematuria; G81.94 Hemiplegia, unspecified affecting left nondominant side; G93.1 Anoxic brain damage, not elsewhere classified; D61.818 Other pancytopenia; E87.4 Mixed disorder of acid-base balance; C81.90 Hodgkin lymphoma, unspecified, unspecified site; I76 Septic arterial embolism; R18.8 Other ascites; I13.2 Hypertensive heart and chronic kidney disease with heart failure and with stage 5 chronic kidney disease, or end stage renal disease; E87.5 Hyperkalemia; E78.5 Hyperlipidemia, unspecified; E55.9 Vitamin D deficiency, unspecified; E66.3 Overweight; R33.9 Retention of urine, unspecified; E21.3 Hyperparathyroidism, unspecified; R74.01 Elevation of levels of liver transaminase levels; K76.9 Liver disease, unspecified; I25.10 Atherosclerotic heart disease of native coronary artery without angina pectoris; R59.0 Localized enlarged lymph nodes; E66.9 Obesity, unspecified; K82.4 Cholesterolosis of gallbladder; E11.42 Type 2 diabetes mellitus with diabetic polyneuropathy; G25.81 Restless legs syndrome; E11.649 Type 2 diabetes mellitus with hypoglycemia without coma; F32.A Depression, unspecified; R13.10 Dysphagia, unspecified; E11.22 Type 2 diabetes mellitus with diabetic chronic kidney disease; Z20.822 Contact with and (suspected) exposure to COVID-19; E21.1 Secondary hyperparathyroidism, not elsewhere classified; Z66 Do not resuscitate; D63.1 Anemia in chronic kidney disease; I49.01 Ventricular fibrillation; K74.60 Unspecified cirrhosis of liver; Z51.5 Encounter for palliative care; I25.2 Old myocardial infarction; Z95.1 Presence of aortocoronary bypass graft; Z79.899 Other long term (current) drug therapy; Z68.28 Body mass index [BMI] 28.0-28.9, adult; Z79.01 Long term (current) use of anticoagulants; Z79.84 Long term (current) use of oral hypoglycemic drugs; Z99.81 Dependence on supplemental oxygen; Z82.49 Family history of ischemic heart disease and other diseases of the circulatory system; Z81.1 Family history of alcohol abuse and dependence; Z91.013 Allergy to seafood; Z86.74 Personal history of sudden cardiac arrest; Z74.01 Bed confinement status
CPT/HCPCS: 10005; 36415; 36569; 36600; 70450; 70551; 71045; 71250; 72192; 74176; 74181; 76705; 76775; 76937; 76942; 77012; 80048; 80053; 80061; 80074; 80076; 80202; 80307; 81001; 82140; 82270; 82306; 82533; 82550; 82570; 82607; 82728; 82805; 82962; 82977; 83010; 83036; 83521; 83540; 83550; 83605; 83615; 83735; 83880; 83970; 84100; 84132; 84155; 84156; 84165; 84300; 84443; 84484; 85007; 85014; 85018; 85025; 85027; 85045; 85048; 85379; 85610; 85652; 85730; 86038; 86141; 86200; 86301; 86606; 86612; 86635; 86644; 86645; 86664; 86698; 86703; 86706; 86803; 86850; 86880; 86900; 86901; 86920; 87040; 87045; 87070; 87075; 87077; 87081; 87086; 87186; 87205; 87426; 87427; 87804; 90935; 92610; 92950; 93005; 93306; 93312; 93886; 94640; 96365; 96367; 96368; 96375; 97110; 97116; 97163; 97530; 99152; 99291; C1894; G0378; J0131; J0171; J0690; J0692; J1100; J1447; J1642; J1815; J1885; J2185; J2248; J2250; J2405; J2470; J2704; J3465; J3490; J7060; P9047